=== PATIENT | male | born 1940 | race Caucasian/White ===

== ENCOUNTER 2018-06-17 17:21 | Inpatient (IN) | payer MEDICARE, BC ==
[~2018-06-17] VITALS: Ht 177.8 cm; Wt 81.9 kg
--- NOTE | 2018-06-17 17:55 | RAD ---
PQRS Compliance Statement: One or more of the following individualized dose reduction techniques were utilized for this examination: 1. Automated exposure control 2. Adjustment of the mA and/or kV according to patient size 3. Use of iterative reconstruction technique CT HEAD WITHOUT CONTRAST History: AMS Comparison: None. Technique: Axial images are obtained of the head from the skull base through the vertex without IV contrast. Findings: No mass-effect, midline shift, extra-axial fluid collection, hemorrhage, or obvious acute infarction is identified. Basilar cisterns are patent. The ventricles and sulci are prominent, consistent with age-related cerebral atrophy. Bone windows demonstrate no acute calvarial abnormality. The visualized paranasal sinuses are clear. Mastoid air cells are well aerated. IMPRESSION: 1. No acute intracranial abnormality. 2. Generalized cerebral atrophy. Electronically signed by: Andrew Henderson MD (06/17/2018 5:51 PM) [facility]
--- NOTE | 2018-06-17 18:09 | ED.ADGEN ---
Past History Past Medical History: Hypothyroid (LESA LOERA DO) Past Medical History: Anxiety, Dementia, Hypertension, Hypothyroid (CHEO ORTEGA MD) Past Surgical History: No Surgical History (LESA LOERA DO) Alcohol Use: None Drug Use: None (LESA LOERA DO) Adult General Chief Complaint Chief Complaint See Dr. Loera report for details. (CHEO ORTEGA MD) Chief Complaint Agitation (LESA LOERA DO) HPI HPI Patient is a 78-year-old male with history of dementia presents with increased agitation and paranoia from home. Patient is reportedly was getting aggressive with family members attempted to escape home. Family report mood lability and refusal to take medications. Family also reports decreased food intake due to paranoia that medications are crushed in his food. Family states they've been attempting to give him medications through his meals. No recent illnesses, falls or injuries. No other acute symptoms or complaints.[] (LESA LOERA DO) Review of Systems Review of Systems Review symptoms as per history of present illness. All other review symptoms are negative. All other systems were reviewed and found to be within normal limits, except as documented in this note. (LESA LOERA DO) Current Medications Current Medications Current Medications Medications (Trade) Dose Ordered Sig/Ines Start Time Stop Time Status Last Admin Dose Admin Lorazepam (Ativan) 2 mg 1X ONCE 06/17/18 20:15 06/17/18 20:16 DC 06/17/18 19:54 2 MG (CHEO ORTEGA MD) Allergies Allergies Allergies Coded Allergies Type Severity Reaction Last Updated Verified rivastigmine Allergy Mild 06/17/18 Yes (CHEO ORTEGA MD) Physical Exam Physical Exam Constitutional: Well developed, well nourished, no acute distress, non-toxic appearance. [] HENT: Normocephalic, atraumatic, bilateral external ears normal, oropharynx moist, nose normal. [] Eyes: PERRLA, EOMI, conjunctiva normal, no discharge. [] Neck: Normal range of motion, no tenderness. [] Cardiovascular:Heart rate regular rhythm, no murmur. [] Lungs & Thorax: Bilateral breath sounds clear to auscultation. [] Abdomen: Bowel sounds normal. [] Skin: Warm, dry, no erythema, no rash. [] Back: No tenderness. [] Extremities: No tenderness, no edema. [] Neurologic: Alert and oriented X 3, normal motor function, normal sensory function, no focal deficits noted. [] Psychologic: Affect normal, judgement normal, mood normal. [] (LESA LOERA DO) Current Patient Data Vital Signs Vital Signs Date Time Temp Pulse Resp B/P (MAP) Pulse Ox O2 Delivery O2 Flow Rate FiO2 06/17/18 19:53 63 18 160/72 (101) 100 Room Air 06/17/18 17:43 98.3 (CHEO ORTEGA MD) Lab Results Laboratory Tests Test 06/17/18 18:05 White Blood Count 9.1 x10^3/uL (4.0-11.0) Red Blood Count 4.41 x10^6/uL (4.30-5.70) Hemoglobin 13.8 g/dL (13.0-17.5) Hematocrit 40.5 % (39.0-53.0) Mean Corpuscular Volume 92 fL (79-100) Mean Corpuscular Hemoglobin 31 pg (25-35) Mean Corpuscular Hemoglobin Concent 34 g/dL (31-37) Red Cell Distribution Width 14.2 % (11.5-14.5) Platelet Count 251 x10^3/uL (140-400) Neutrophils (%) (Auto) 69 % (31-73) Lymphocytes (%) (Auto) 16 % (24-48) L Monocytes (%) (Auto) 12 % (0-9) H Eosinophils (%) (Auto) 2 % (0-3) Basophils (%) (Auto) 1 % (0-3) Neutrophils # (Auto) 6.3 x10^3uL (1.8-7.7) Lymphocytes # (Auto) 1.5 x10^3/uL (1.0-4.8) Monocytes # (Auto) 1.1 x10^3/uL (0.0-1.1) Eosinophils # (Auto) 0.2 x10^3/uL (0.0-0.7) Basophils # (Auto) 0.1 x10^3/uL (0.0-0.2) Urine Collection Type Unknown Urine Color Yellow Urine Clarity Hazy Urine pH 6.5 Urine Specific [place] 1.025 Urine Protein Neg (NEG-TRACE) Urine Glucose (UA) Neg mg/dL (NEG) Urine Ketones (Stick) Neg mg/dL (NEG) Urine Blood Neg (NEG) Urine Nitrite Neg (NEG) Urine Bilirubin Neg (NEG) Urine Urobilinogen Dipstick 1 mg/dL (0.2 mg/dL) Urine Leukocyte Esterase Neg (NEG) Urine RBC 1-2 /HPF (0-2) Urine WBC 1-4 /HPF (0-4) Urine Squamous Epithelial Cells Few /LPF Urine Bacteria 0 /HPF (0-FEW) Urine Hyaline Casts Few /HPF Urine Mucus Marked /LPF Sodium Level 138 mmol/L (136-145) Potassium Level 3.9 mmol/L (3.5-5.1) Chloride Level 104 mmol/L (98-107) Carbon Dioxide Level 25 mmol/L (21-32) Anion Gap 9 (6-14) Blood Urea Nitrogen 20 mg/dL (8-26) Creatinine 1.1 mg/dL (0.7-1.3) Estimated GFR (Cockcroft-Gault) 64.7 BUN/Creatinine Ratio 18 (6-20) Glucose Level 96 mg/dL (70-99) Calcium Level 8.6 mg/dL (8.5-10.1) Magnesium Level 2.1 mg/dL (1.8-2.4) Total Bilirubin 0.3 mg/dL (0.2-1.0) Aspartate Amino Transferase (AST) 20 U/L (15-37) Alanine Aminotransferase (ALT) 26 U/L (16-63) Alkaline Phosphatase 92 U/L (46-116) Troponin I Quantitative < 0.017 ng/mL (0-0.055) Total Protein 8.2 g/dL (6.4-8.2) Albumin 3.4 g/dL (3.4-5.0) Albumin/Globulin Ratio 0.7 (1.0-1.7) L (CHEO ORTEGA MD) Lab Results Laboratory Tests Test 06/17/18 16:00 06/17/18 18:05 Hemoglobin A1c 5.6 % (4.8-5.6) Iron Level 51 ug/dL (65-175) L Total Iron Binding Capacity 235 ug/dL (250-450) L Iron Saturation 22 % (15-34) Triglycerides Level 64 mg/dL (0-150) Cholesterol Level 140 mg/dL (0-200) LDL Cholesterol, Calculated 93 mg/dL (0-100) VLDL Cholesterol, Calculated 12 mg/dL (0-40) Non-HDL Cholesterol Calculated 105 mg/dL (0-129) HDL Cholesterol 35 mg/dL (40-60) L Cholesterol/HDL Ratio 4.0 Vitamin B12 Level 709 pg/mL (247-911) 25-Hydroxy Vitamin D Total 44.4 ng/mL (30-100) Thyroid Stimulating Hormone (TSH) 1.550 uIU/mL (0.358-3.740) Thyroxine (T4) 6.9 ug/dL (4.5-12.0) Total Triiodothyronine (TT3) 84 ng/dL (71-180) Treponema pallidum Antibody Nonreactive (Nonreactive) White Blood Count 9.1 x10^3/uL (4.0-11.0) Red Blood Count 4.41 x10^6/uL (4.30-5.70) Hemoglobin 13.8 g/dL (13.0-17.5) Hematocrit 40.5 % (39.0-53.0) Mean Corpuscular Volume 92 fL (79-100) Mean Corpuscular Hemoglobin 31 pg (25-35) Mean Corpuscular Hemoglobin Concent 34 g/dL (31-37) Red Cell Distribution Width 14.2 % (11.5-14.5) Platelet Count 251 x10^3/uL (140-400) Neutrophils (%) (Auto) 69 % (31-73) Lymphocytes (%) (Auto) 16 % (24-48) L Monocytes (%) (Auto) 12 % (0-9) H Eosinophils (%) (Auto) 2 % (0-3) Basophils (%) (Auto) 1 % (0-3) Neutrophils # (Auto) 6.3 x10^3uL (1.8-7.7) Lymphocytes # (Auto) 1.5 x10^3/uL (1.0-4.8) Monocytes # (Auto) 1.1 x10^3/uL (0.0-1.1) Eosinophils # (Auto) 0.2 x10^3/uL (0.0-0.7) Basophils # (Auto) 0.1 x10^3/uL (0.0-0.2) Urine Collection Type Unknown Urine Color Yellow Urine Clarity Hazy Urine pH 6.5 Urine Specific [place] 1.025 Urine Protein Neg (NEG-TRACE) Urine Glucose (UA) Neg mg/dL (NEG) Urine Ketones (Stick) Neg mg/dL (NEG) Urine Blood Neg (NEG) Urine Nitrite Neg (NEG) Urine Bilirubin Neg (NEG) Urine Urobilinogen Dipstick 1 mg/dL (0.2 mg/dL) Urine Leukocyte Esterase Neg (NEG) Urine RBC 1-2 /HPF (0-2) Urine WBC 1-4 /HPF (0-4) Urine Squamous Epithelial Cells Few /LPF Urine Bacteria 0 /HPF (0-FEW) Urine Hyaline Casts Few /HPF Urine Mucus Marked /LPF Sodium Level 138 mmol/L (136-145) Potassium Level 3.9 mmol/L (3.5-5.1) Chloride Level 104 mmol/L (98-107) Carbon Dioxide Level 25 mmol/L (21-32) Anion Gap 9 (6-14) Blood Urea Nitrogen 20 mg/dL (8-26) Creatinine 1.1 mg/dL (0.7-1.3) Estimated GFR (Cockcroft-Gault) 64.7 BUN/Creatinine Ratio 18 (6-20) Glucose Level 96 mg/dL (70-99) Calcium Level 8.6 mg/dL (8.5-10.1) Magnesium Level 2.1 mg/dL (1.8-2.4) Total Bilirubin 0.3 mg/dL (0.2-1.0) Aspartate Amino Transferase (AST) 20 U/L (15-37) Alanine Aminotransferase (ALT) 26 U/L (16-63) Alkaline Phosphatase 92 U/L (46-116) Troponin I Quantitative < 0.017 ng/mL (0-0.055) Total Protein 8.2 g/dL (6.4-8.2) Albumin 3.4 g/dL (3.4-5.0) Albumin/Globulin Ratio 0.7 (1.0-1.7) L (LESA LOERA DO) EKG EKG [EKG; reviewed] (LESA LOERA DO) EKG My interpretation of EKG shows a sinus rhythm at 60 bpm. Some mild leftward axis. Some nonspecific T-wave changes. (CHEO ORTEGA MD) Radiology/Procedures Radiology/Procedures [] (LESA LOERA DO) Radiology/Procedures My interpretation CT of head shows no shift, mass, edema, bleed, or fracture. Does have generalized atrophy. Review formal report when available. My interpretation chest x-ray shows no acute cardiopulmonary findings. Borderline cardiomegaly. Does have some chronic lung changes as well as midline sternal wires from previous bypass surgery. Does have screws and right humerus. No acute processes appreciated. See formal report when available (CHEO ORTEGA MD) Course & Med Decision Making Course & Med Decision Making Pertinent Labs and Imaging studies reviewed. (See chart for details) [Work up in progress. Care endorsed to oncoming [facility] at 1800.] (LESA LOERA DO) Final Impression Final Impression [] (LESA LOERA DO) Final Impression 1. Mental Status Change- Increased confusion 2. Aggressive and Agitated Behaviors 3. Dementia- rapid progression 4. Hx. Hypothyroid 5. Hx. BPH See [facility] Psych. evaluation- Pt. admitted to [facility]- Dr. London for further eval and tx. (CHEO ORTEGA MD) Dragon Disclaimer Dragon Disclaimer This electronic medical record was generated, in whole or in part, using a voice recognition dictation system. (LESA LOERA DO) Dragon Disclaimer This chart was dictated in whole or in part using Voice Recognition software in a busy, high-work load, and often noisy Emergency Department environment. It may contain unintended and wholly unrecognized errors or omissions. (CHEO ORTEGA MD) Dragon Disclaimer This chart was dictated in whole or in part using Voice Recognition software in a busy, high-work load, and often noisy Emergency Department environment. It may contain unintended and wholly unrecognized errors or omissions. (LESA LOERA DO) Discharge Summary Visit Information Final Diagnosis Problems Medical Problems: (1) Mental status alteration Status: Acute (LESA LOERA DO) Brief Hospital Course Allergies Allergies Coded Allergies Type Severity Reaction Last Updated Verified rivastigmine Allergy Mild 06/17/18 Yes (LESA LOERA DO) Vital Signs Vital Signs Date Time Temp Pulse Resp B/P (MAP) Pulse Ox O2 Delivery O2 Flow Rate FiO2 06/17/18 19:53 63 18 160/72 (101) 100 Room Air 06/17/18 17:43 98.3 (LESA LOERA DO) Lab Results Laboratory Tests Test 06/17/18 16:00 06/17/18 18:05 Hemoglobin A1c 5.6 % (4.8-5.6) Iron Level 51 ug/dL (65-175) Total Iron Binding Capacity 235 ug/dL (250-450) Iron Saturation 22 % (15-34) Triglycerides Level 64 mg/dL (0-150) Cholesterol Level 140 mg/dL (0-200) LDL Cholesterol, Calculated 93 mg/dL (0-100) VLDL Cholesterol, Calculated 12 mg/dL (0-40) Non-HDL Cholesterol Calculated 105 mg/dL (0-129) HDL Cholesterol 35 mg/dL (40-60) Cholesterol/HDL Ratio 4.0 Vitamin B12 Level 709 pg/mL (247-911) 25-Hydroxy Vitamin D Total 44.4 ng/mL (30-100) Thyroid Stimulating Hormone (TSH) 1.550 uIU/mL (0.358-3.740) Thyroxine (T4) 6.9 ug/dL (4.5-12.0) Total Triiodothyronine 84 ng/dL (71-180) Treponema pallidum Antibody Nonreactive (Nonreactive) White Blood Count 9.1 x10^3/uL (4.0-11.0) Red Blood Count 4.41 x10^6/uL (4.30-5.70) Hemoglobin 13.8 g/dL (13.0-17.5) Hematocrit 40.5 % (39.0-53.0) Mean Corpuscular Volume 92 fL (79-100) Mean Corpuscular Hemoglobin 31 pg (25-35) Mean Corpuscular Hemoglobin Concent 34 g/dL (31-37) Red Cell Distribution Width 14.2 % (11.5-14.5) Platelet Count 251 x10^3/uL (140-400) Neutrophils (%) (Auto) 69 % (31-73) Lymphocytes (%) (Auto) 16 % (24-48) Monocytes (%) (Auto) 12 % (0-9) Eosinophils (%) (Auto) 2 % (0-3) Basophils (%) (Auto) 1 % (0-3) Neutrophils # (Auto) 6.3 x10^3uL (1.8-7.7) Lymphocytes # (Auto) 1.5 x10^3/uL (1.0-4.8) Monocytes # (Auto) 1.1 x10^3/uL (0.0-1.1) Eosinophils # (Auto) 0.2 x10^3/uL (0.0-0.7) Basophils # (Auto) 0.1 x10^3/uL (0.0-0.2) Urine Collection Type Unknown Urine Color Yellow Urine Clarity Hazy Urine pH 6.5 Urine Specific [place] 1.025 Urine Protein Neg (NEG-TRACE) Urine Glucose (UA) Neg mg/dL (NEG) Urine Ketones (Stick) Neg mg/dL (NEG) Urine Blood Neg (NEG) Urine Nitrite Neg (NEG) Urine Bilirubin Neg (NEG) Urine Urobilinogen Dipstick 1 mg/dL (0.2 mg/dL) Urine Leukocyte Esterase Neg (NEG) Urine RBC 1-2 /HPF (0-2) Urine WBC 1-4 /HPF (0-4) Urine Squamous Epithelial Cells Few /LPF Urine Bacteria 0 /HPF (0-FEW) Urine Hyaline Casts Few /HPF Urine Mucus Marked /LPF Sodium Level 138 mmol/L (136-145) Potassium Level 3.9 mmol/L (3.5-5.1) Chloride Level 104 mmol/L (98-107) Carbon Dioxide Level 25 mmol/L (21-32) Anion Gap 9 (6-14) Blood Urea Nitrogen 20 mg/dL (8-26) Creatinine 1.1 mg/dL (0.7-1.3) Estimated GFR (Cockcroft-Gault) 64.7 BUN/Creatinine Ratio 18 (6-20) Glucose Level 96 mg/dL (70-99) Calcium Level 8.6 mg/dL (8.5-10.1) Magnesium Level 2.1 mg/dL (1.8-2.4) Total Bilirubin 0.3 mg/dL (0.2-1.0) Aspartate Amino Transf (AST/SGOT) 20 U/L (15-37) Alanine Aminotransferase (ALT/SGPT) 26 U/L (16-63) Alkaline Phosphatase 92 U/L (46-116) Troponin I Quantitative < 0.017 ng/mL (0-0.055) Total Protein 8.2 g/dL (6.4-8.2) Albumin 3.4 g/dL (3.4-5.0) Albumin/Globulin Ratio 0.7 (1.0-1.7) (LESA LOERA DO) Brief Hospital Course Mr. Sanderson is a 78 old male who presented with mental status change and increased behavior issue s of aggression and agitation. Pt. has know hx of dementia, with recent increased problems memory and confusion. Pt. admitted [facility] service [facility] (CHEO ORTEGA MD) Brief Hospital Course Mr. Sanderson is a 78 old [sex] who presented with [ ] (LESA LOERA DO) Discharge Information Condition at Discharge: Stable (CHEO ORTEGA MD) Dischare Medications Current Medications Lorazepam (Ativan) 2 mg 1X ONCE PO Last administered on 06/17/18at 19:54; Admin Dose 2 MG; Start 06/17/18 at 20:15; Stop 06/17/18 at 20:16; Status DC Active Scripts Active Reported Tamsulosin Hcl 0.4 Mg Cap.er.24h 0.4 Mg PO DAILY Levothyroxine Sodium 88 Mcg Tablet 88 Mcg PO DAILYAC Escitalopram Oxalate 20 Mg Tablet 20 Mg PO DAILY Rivastigmine (Rivastigmine Tartrate) 1.5 Mg Capsule 1.5 Mg PO BID Namenda Xr (Memantine Hcl) 28 Mg Cap.spr.24 28 Mg PO DAILY (LESA LOERA DO) LESA LOERA DO Jun 17, 2018 18:09 CHEO ORTEGA MD Jun 18, 2018 00:59
--- NOTE | 2018-06-17 18:13 | EKG ---
[address] [address] Test Date: 2018-06-17 Test Time: 17:54:47 Pat Name: CRISTINA VALENCIA Department: Room: Gender: M Barrel Handler: AMADO : 1940 Requested By: LESA MCCORMICK Order Number: [id number] Reading MD: Robbi Collins Measurements Intervals [place] Rate: 60 P: 38 AK: 182 QRS: 0 QRSD: 86 T: 90 QT: 418 QTc: 418 Interpretive Statements SINUS RHYTHM LEFTWARD AXIS T ABNORMALITY IN ANTEROLATERAL LEADS Electronically Signed On 06-27-2018 18:46:57 [employer] by Robbi Collins
[2018-06-17 18:18] LABS: BASO # 0.1 x10^3/uL (0.0-0.2); BASO % 1 % (0-3); EOS # 0.2 x10^3/uL (0.0-0.7); EOS % 2 % (0-3); HEMATOCRIT 40.5 % (39.0-53.0); HEMOGLOBIN 13.8 g/dL (13.0-17.5); LYMPH # 1.5 x10^3/uL (1.0-4.8); LYMPH % 16 % (24-48); MEAN CORPUSCULAR HEMOGLOBIN 31 pg (25-35); MEAN CORPUSCULAR HGB CONC 34 g/dL (31-37); MEAN CORPUSCULAR VOLUME 92 fL (79-100); MONO # 1.1 x10^3/uL (0.0-1.1); MONO % 12 % (0-9); NEUT # 6.3 x10^3uL (1.8-7.7); NEUT % 69 % (31-73); PLATELET COUNT 251 x10^3/uL (140-400); RED BLOOD COUNT 4.41 x10^6/uL (4.30-5.70); RED CELL DISTRIBUTION WIDTH 14.2 % (11.5-14.5); WHITE BLOOD COUNT 9.1 x10^3/uL (4.0-11.0)
[2018-06-17 18:35] LABS: ALBUMIN 3.4 g/dL (3.4-5.0); ALBUMIN/GLOBULIN RATIO 0.7 (1.0-1.7); CALCIUM 8.6 mg/dL (8.5-10.1); CREATININE 1.1 mg/dL (0.7-1.3); GFR 64.7; MAGNESIUM 2.1 mg/dL (1.8-2.4); POTASSIUM 3.9 mmol/L (3.5-5.1); TOTAL BILIRUBIN 0.3 mg/dL (0.2-1.0); TOTAL PROTEIN 8.2 g/dL (6.4-8.2)
[2018-06-17 18:54] LABS: BACTERIA,URINE 0 /HPF (0-FEW); BILIRUBIN,URINE NEG (NEG); CLARITY,URINE HAZY; COLOR,URINE YELLOW; GLUCOSE,URINE NEG (NEG); NITRITE,URINE NEG (NEG); SQUAMOUS EPITHELIAL CELL,UR FEW /LPF; UROBILINOGEN,URINE 1 mg/dL (0.2 mg/dL)
[2018-06-17 18:55] LABS: HYALINE CASTS, URINE FEW /HPF
--- NOTE | 2018-06-17 19:15 | RAD ---
CHEST AP ONLY Clinical Indication: AMS Comparison: None. Findings: Median sternotomy wires and prior CABG. The cardiomediastinal silhouette is normal. Lungs are clear. There is no pneumothorax. No pleural effusion is appreciated. No acute bone abnormality. There are 2 cortical screws of the mid right humerus. IMPRESSION: No acute cardiopulmonary process. Electronically signed by: Andrew Henderson MD (06/17/2018 7:10 PM) [facility]
[2018-06-17] MEDS ORDERED: LORazepam 1 MG TABLET PO ONE (20:15)
[2018-06-17] MEDS ORDERED: MAG HYDROX/AL HYDROX/SIMETH 30 ML ORAL.SUSP PO PRN (21:30)
[2018-06-17] MEDS ORDERED: RIVA1.5C4 PO (21:37)
[2018-06-17] MEDS ORDERED: TAMS0.4C2 PO (21:37)
[2018-06-17] MEDS ORDERED: LEVO88TA4 PO (21:37)
[2018-06-17] MEDS ORDERED: ESCITALOPRAM OX20 MG PO (21:37)
[2018-06-17] MEDS ORDERED: MEMA28CA PO (21:37)
--- NOTE | 2018-06-17 22:47 | PDOC ---
Exam Note: Justin Note: Please also refer to the separate dictated note~for this date of service dictated separately. Discussed the patient with Nursing staff reviewed the chart.~Reviewed interim history and current functioning. Reviewed vital signs,~ Labs/ Radiology~and current medications noted below. Continue current treatment with the changes noted in the dictated addendum note Assessment: Vital Signs: Vital Signs Date Time Temp Pulse Resp B/P (MAP) Pulse Ox O2 Delivery O2 Flow Rate FiO2 06/17/18 19:53 63 18 160/72 (101) 100 Room Air 06/17/18 17:43 98.3 Labs: Laboratory Tests Test 06/17/18 18:05 White Blood Count 9.1 x10^3/uL (4.0-11.0) Red Blood Count 4.41 x10^6/uL (4.30-5.70) Hemoglobin 13.8 g/dL (13.0-17.5) Hematocrit 40.5 % (39.0-53.0) Mean Corpuscular Volume 92 fL (79-100) Mean Corpuscular Hemoglobin 31 pg (25-35) Mean Corpuscular Hemoglobin Concent 34 g/dL (31-37) Red Cell Distribution Width 14.2 % (11.5-14.5) Platelet Count 251 x10^3/uL (140-400) Neutrophils (%) (Auto) 69 % (31-73) Lymphocytes (%) (Auto) 16 % (24-48) L Monocytes (%) (Auto) 12 % (0-9) H Eosinophils (%) (Auto) 2 % (0-3) Basophils (%) (Auto) 1 % (0-3) Neutrophils # (Auto) 6.3 x10^3uL (1.8-7.7) Lymphocytes # (Auto) 1.5 x10^3/uL (1.0-4.8) Monocytes # (Auto) 1.1 x10^3/uL (0.0-1.1) Eosinophils # (Auto) 0.2 x10^3/uL (0.0-0.7) Basophils # (Auto) 0.1 x10^3/uL (0.0-0.2) Urine Collection Type Unknown Urine Color Yellow Urine Clarity Hazy Urine pH 6.5 Urine Specific [place] 1.025 Urine Protein Neg (NEG-TRACE) Urine Glucose (UA) Neg mg/dL (NEG) Urine Ketones (Stick) Neg mg/dL (NEG) Urine Blood Neg (NEG) Urine Nitrite Neg (NEG) Urine Bilirubin Neg (NEG) Urine Urobilinogen Dipstick 1 mg/dL (0.2 mg/dL) Urine Leukocyte Esterase Neg (NEG) Urine RBC 1-2 /HPF (0-2) Urine WBC 1-4 /HPF (0-4) Urine Squamous Epithelial Cells Few /LPF Urine Bacteria 0 /HPF (0-FEW) Urine Hyaline Casts Few /HPF Urine Mucus Marked /LPF Sodium Level 138 mmol/L (136-145) Potassium Level 3.9 mmol/L (3.5-5.1) Chloride Level 104 mmol/L (98-107) Carbon Dioxide Level 25 mmol/L (21-32) Anion Gap 9 (6-14) Blood Urea Nitrogen 20 mg/dL (8-26) Creatinine 1.1 mg/dL (0.7-1.3) Estimated GFR (Cockcroft-Gault) 64.7 BUN/Creatinine Ratio 18 (6-20) Glucose Level 96 mg/dL (70-99) Calcium Level 8.6 mg/dL (8.5-10.1) Magnesium Level 2.1 mg/dL (1.8-2.4) Total Bilirubin 0.3 mg/dL (0.2-1.0) Aspartate Amino Transferase (AST) 20 U/L (15-37) Alanine Aminotransferase (ALT) 26 U/L (16-63) Alkaline Phosphatase 92 U/L (46-116) Troponin I Quantitative < 0.017 ng/mL (0-0.055) Total Protein 8.2 g/dL (6.4-8.2) Albumin 3.4 g/dL (3.4-5.0) Albumin/Globulin Ratio 0.7 (1.0-1.7) L Current Medications: Meds: Current Medications Lorazepam (Ativan) 2 mg 1X ONCE PO Last administered on 06/17/18at 19:54; Start 06/17/18 at 20:15; Stop 06/17/18 at 20:16; Status DC Acetaminophen (Tylenol) 650 mg PRN Q6HRS PRN PO PAIN / TEMP; Start 06/17/18 at 21:30 Multi-Ingredient Ointment (Analgesic Cool) 1 alan PRN QID PRN TP MUSCLE PAIN; Start 06/17/18 at 21:30 Al Hydroxide/Mg Hydroxide (Mylanta Plus Xs) 15 ml PRN AFTMEALHC PRN PO DYSPEPSIA; Start 06/17/18 at 21:30 Magnesium Hydroxide (Milk Of Magnesia) 2,400 mg PRN QHS PRN PO CONSTIPATION; Start 06/17/18 at 21:30 Trazodone HCl (Desyrel) 25 mg PRN QHS PRN PO INSOMNIA; Start 06/17/18 at 21:30 Olanzapine (ZyPREXA ZYDIS) 2.5 mg PRN Q2HR PRN PO PSYCHOSIS; Start 06/17/18 at 21:30 Active Scripts Active Reported Tamsulosin Hcl 0.4 Mg Cap.er.24h 0.4 Mg PO DAILY Levothyroxine Sodium 88 Mcg Tablet 88 Mcg PO DAILYAC Escitalopram Oxalate 20 Mg Tablet 20 Mg PO DAILY Rivastigmine (Rivastigmine Tartrate) 1.5 Mg Capsule 1.5 Mg PO BID Namenda Xr (Memantine Hcl) 28 Mg Cap.spr.24 28 Mg PO DAILY I have reviewed the current psychotropics carefully including drug interactions. Risk benefit ratio favors no change other than as noted in my dictated progress note. Diagnosis: Problems: (1) Mental status alteration MILAN TAYLOR MD Jun 17, 2018 22:47
[2018-06-17 23:08] VITALS: BP 171/81
[2018-06-18 05:49] VITALS: BP 165/81
[2018-06-18 06:49] LABS: BASO % 1 % (0-3); EOS # 0.3 x10^3/uL (0.0-0.7); EOS % 4 % (0-3); HEMATOCRIT 39.7 % (39.0-53.0); HEMOGLOBIN 13.5 g/dL (13.0-17.5); LYMPH # 2.2 x10^3/uL (1.0-4.8); LYMPH % 30 % (24-48); MEAN CORPUSCULAR HEMOGLOBIN 32 pg (25-35); MEAN CORPUSCULAR HGB CONC 34 g/dL (31-37); MEAN CORPUSCULAR VOLUME 92 fL (79-100); MONO % 13 % (0-9); NEUT # 3.9 x10^3uL (1.8-7.7); NEUT % 53 % (31-73); PLATELET COUNT 254 x10^3/uL (140-400); RED CELL DISTRIBUTION WIDTH 14.1 % (11.5-14.5); WHITE BLOOD COUNT 7.5 x10^3/uL (4.0-11.0)
[2018-06-18 06:50] LABS: CALCIUM 8.5 mg/dL (8.5-10.1); CREATININE 0.9 mg/dL (0.7-1.3); GFR 81.6
[2018-06-18] MEDS: RIVASTIGMINE. 1.5 MG CAPSULE. PO SCH ×2 (09:09→16:43)
[2018-06-18] MEDS: MEMANTINE 10 MG TABLET. PO SCH ×2 (09:10→19:59)
[2018-06-18] MEDS: LEVOTHYROXINE 88 MCG TABLET PO SCH (09:10)
[2018-06-18] MEDS: CITALOPRAM 20 MG TABLET. PO SCH (09:10)
[2018-06-18] MEDS: TAMSULOSIN 0.4 MG CAP.ER.24H. PO SCH (09:10)
[2018-06-18] MEDS: ACETAMINOPHEN 325 MG TABLET PO PRN (14:10)
[2018-06-18 15:59] VITALS: BP 131/71
[2018-06-18 18:08] LABS: THYROXINE 6.9 ug/dL (4.5-12.0)
[2018-06-18] MEDS: traZODone 50 MG TABLET. PO PRN ×2 (19:59→21:01)
[2018-06-18 21:08] LABS: HEMOGLOBIN A1C 5.6 % (4.8-5.6)
[2018-06-18] MEDS: hydrOXYzine HCL 25 MG TABLET PO PRN (22:54)
--- NOTE | 2018-06-18 22:56 | PDOC ---
Exam Note: Justin Note: Please also refer to the separate dictated note~for this date of service dictated separately.~Patient seen individually. Discussed the patient with Nursing staff reviewed the chart.~Reviewed interim history and current functioning. Reviewed vital signs,~Labs/ Radiology~and current medications noted below. Continue current treatment with the changes noted in the dictated addendum note Assessment: Vital Signs: Vital Signs Date Time Temp Pulse Resp B/P (MAP) Pulse Ox O2 Delivery O2 Flow Rate FiO2 06/18/18 15:59 97.6 82 22 131/71 (91) 95 Room Air Labs: Laboratory Tests Test 06/18/18 06:23 White Blood Count 7.5 x10^3/uL (4.0-11.0) Red Blood Count 4.30 x10^6/uL (4.30-5.70) Hemoglobin 13.5 g/dL (13.0-17.5) Hematocrit 39.7 % (39.0-53.0) Mean Corpuscular Volume 92 fL (79-100) Mean Corpuscular Hemoglobin 32 pg (25-35) Mean Corpuscular Hemoglobin Concent 34 g/dL (31-37) Red Cell Distribution Width 14.1 % (11.5-14.5) Platelet Count 254 x10^3/uL (140-400) Neutrophils (%) (Auto) 53 % (31-73) Lymphocytes (%) (Auto) 30 % (24-48) Monocytes (%) (Auto) 13 % (0-9) H Eosinophils (%) (Auto) 4 % (0-3) H Basophils (%) (Auto) 1 % (0-3) Neutrophils # (Auto) 3.9 x10^3uL (1.8-7.7) Lymphocytes # (Auto) 2.2 x10^3/uL (1.0-4.8) Monocytes # (Auto) 1.0 x10^3/uL (0.0-1.1) Eosinophils # (Auto) 0.3 x10^3/uL (0.0-0.7) Basophils # (Auto) 0.0 x10^3/uL (0.0-0.2) Sodium Level 140 mmol/L (136-145) Potassium Level 4.0 mmol/L (3.5-5.1) Chloride Level 106 mmol/L (98-107) Carbon Dioxide Level 27 mmol/L (21-32) Anion Gap 7 (6-14) Blood Urea Nitrogen 17 mg/dL (8-26) Creatinine 0.9 mg/dL (0.7-1.3) Estimated GFR (Cockcroft-Gault) 81.6 Glucose Level 89 mg/dL (70-99) Calcium Level 8.5 mg/dL (8.5-10.1) Current Medications: Meds: Current Medications Lorazepam (Ativan) 2 mg 1X ONCE PO Last administered on 06/17/18 19:54; Start 06/17/18 at 20:15; Stop 06/17/18 at 20:16; Status DC Acetaminophen (Tylenol) 650 mg PRN Q6HRS PRN PO PAIN / TEMP Last administered on 06/18/18 14:10; Start 06/17/18 at 21:30 Multi-Ingredient Ointment (Analgesic Dendron) 1 alan PRN QID PRN TP MUSCLE PAIN; Start 06/17/18 at 21:30 Al Hydroxide/Mg Hydroxide (Mylanta Plus Xs) 15 ml PRN AFTMEALHC PRN PO DYSPEPSIA; Start 06/17/18 at 21:30 Magnesium Hydroxide (Milk Of Magnesia) 2,400 mg PRN QHS PRN PO CONSTIPATION; Start 06/17/18 at 21:30 Trazodone HCl (Desyrel) 25 mg PRN QHS PRN PO INSOMNIA Last administered on 21:01; Start 06/17/18 at 21:30 Olanzapine (ZyPREXA ZYDIS) 2.5 mg PRN Q2HR PRN PO PSYCHOSIS Last administered on 06/18/18 19:59; Start 06/17/18 at 21:30 Citalopram Hydrobromide (CeleXA) 40 mg DAILY PO Last administered on 06/18/18 09:10; Start 06/18/18 at 09:00 Memantine (Namenda) 10 mg BID PO Last administered on 06/18/18 19:59; Start 06/18/18 at 09:00 Rivastigmine Tartrate (Exelon) 1.5 mg BIDWMEALS PO Last administered on 16:43; Start 06/18/18 at 08:00 Levothyroxine Sodium (Synthroid) 88 mcg DAILYAC PO Last administered on at 09:10; Start 06/18/18 at 07:30 Tamsulosin HCl (Flomax) 0.4 mg DAILY PO Last administered on 06/18/18at 09:10; Start 06/18/18 at 09:00 Hydroxyzine HCl (Atarax) 25 mg PRN Q2HR PRN PO ANXIETY / AGITATION Last administered on 06/18/18at 22:54; Start 06/18/18 at 23:00 Active Scripts Active Reported Tamsulosin Hcl 0.4 Mg Cap.er.24h 0.4 Mg PO DAILY Levothyroxine Sodium 88 Mcg Tablet 88 Mcg PO DAILYAC Escitalopram Oxalate 20 Mg Tablet 20 Mg PO DAILY Rivastigmine (Rivastigmine Tartrate) 1.5 Mg Capsule 1.5 Mg PO BID Namenda Xr (Memantine Hcl) 28 Mg Cap.spr.24 28 Mg PO DAILY I have reviewed the current psychotropics carefully including drug interactions. Risk benefit ratio favors no change other than as noted in my dictated progress note. Diagnosis: Problems: (1) Mental status alteration MILAN TAYLOR MD Jun 18, 2018 22:56
[2018-06-18 23:00] LABS: THYROID STIM HORMONE (TSH) 1.55 uIU/mL (0.358-3.740)
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
[2018-06-19 05:37] VITALS: BP 122/70
[2018-06-19] MEDS: TAMSULOSIN 0.4 MG CAP.ER.24H. PO SCH (08:09)
[2018-06-19] MEDS: RIVASTIGMINE. 1.5 MG CAPSULE. PO SCH ×2 (08:09→17:34)
[2018-06-19] MEDS: CITALOPRAM 20 MG TABLET. PO SCH (08:09)
[2018-06-19] MEDS: MEMANTINE 10 MG TABLET. PO SCH ×2 (08:09→20:10)
[2018-06-19] MEDS: LEVOTHYROXINE 88 MCG TABLET PO SCH (08:11)
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
[2018-06-19] MEDS: hydrOXYzine HCL 25 MG TABLET PO PRN (15:45)
[2018-06-19 16:49] VITALS: BP 115/79
[2018-06-19] MEDS: QUEtiapine 25 MG TABLET. PO SCH (17:36)
[2018-06-19] MEDS: traZODone 50 MG TABLET. PO PRN ×2 (20:12→21:02)
[2018-06-19] MEDS: MIRTAZAPINE 7.5 MG TABLET. PO SCH (20:12)
[2018-06-19] MEDS: CARBAMIDE PEROXIDE 6.5% OTIC SOLUTION 15ML BOTTLE. AU SCH (21:00)
--- NOTE | 2018-06-19 22:40 | PDOC ---
Exam Note: Justin Note: Please also refer to the separate dictated note~for this date of service dictated separately.~Patient seen individually. Discussed the patient with Nursing staff reviewed the chart.~Reviewed interim history and current functioning. Reviewed vital signs,~Labs/ Radiology~and current medications noted below. Continue current treatment with the changes noted in the dictated addendum note Assessment: Vital Signs: Vital Signs Date Time Temp Pulse Resp B/P (MAP) Pulse Ox O2 Delivery O2 Flow Rate FiO2 06/19/18 16:49 99.7 80 20 115/79 (91) 98 06/18/18 15:59 Room Air I&O Intake and Output 06/19/18 07:01 Intake Total 960 ml Balance 960 ml Intake Oral 960 ml Current Medications: Meds: Current Medications Lorazepam (Ativan) 2 mg 1X ONCE PO Last administered on 06/17/18 19:54; Start 06/17/18 at 20:15; Stop 06/17/18 at 20:16; Status DC Acetaminophen (Tylenol) 650 mg PRN Q6HRS PRN PO PAIN / TEMP Last administered on 06/18/18at 14:10; Start 06/17/18 at 21:30 Multi-Ingredient Ointment (Analgesic [place]) 1 alan PRN QID PRN TP MUSCLE PAIN; Start 06/17/18 at 21:30 Al Hydroxide/Mg Hydroxide (Mylanta Plus Xs) 15 ml PRN AFTMEALHC PRN PO DYSPEPSIA; Start 06/17/18 at 21:30 Magnesium Hydroxide (Milk Of Magnesia) 2,400 mg PRN QHS PRN PO CONSTIPATION; Start 06/17/18 at 21:30 Trazodone HCl (Desyrel) 25 mg PRN QHS PRN PO INSOMNIA Last administered on at 21:02; Start 06/17/18 at 21:30 Olanzapine (ZyPREXA ZYDIS) 2.5 mg PRN Q2HR PRN PO PSYCHOSIS Last administered on 06/19/18 21:02; Start 06/17/18 at 21:30 Citalopram Hydrobromide (CeleXA) 40 mg DAILY PO Last administered on 06/19/18at 08:09; Start 06/18/18 at 09:00; Stop 06/19/18 at 16:58; Status DC Memantine (Namenda) 10 mg BID PO Last administered on 06/19/18at 20:10; Start 06/18/18 at 09:00 Rivastigmine Tartrate (Exelon) 1.5 mg BIDWMEALS PO Last administered on at 17:34; Start 06/18/18 at 08:00 Levothyroxine Sodium (Synthroid) 88 mcg DAILYAC PO Last administered on at 08:11; Start 06/18/18 at 07:30; Stop 06/19/18 at 17:40; Status DC Tamsulosin HCl (Flomax) 0.4 mg DAILY PO Last administered on 06/19/18at 08:09; Start 06/18/18 at 09:00 Hydroxyzine HCl (Atarax) 25 mg PRN Q2HR PRN PO ANXIETY / AGITATION Last administered on 06/19/18at 15:45; Start 06/18/18 at 23:00 Carbamide Peroxide (Debrox) 5 drop BID AU ; Start 06/19/18 at 21:00; Stop at 20:59 Mirtazapine (Remeron) 7.5 mg QHS PO Last administered on 06/19/18at 20:12; Start 06/19/18 at 21:00 Sertraline HCl (Zoloft) 50 mg DAILY PO ; Start 06/20/18 at 09:00 Quetiapine Fumarate (SEROquel) 12.5 mg 0900,1700 PO Last administered on at 17:36; Start 06/19/18 at 17:00 Levothyroxine Sodium (Synthroid) 88 mcg DAILY06 PO ; Start 06/20/18 at 06:00 Active Scripts Active Reported Tamsulosin Hcl 0.4 Mg Cap.er.24h 0.4 Mg PO DAILY Levothyroxine Sodium 88 Mcg Tablet 88 Mcg PO DAILYAC Escitalopram Oxalate 20 Mg Tablet 20 Mg PO DAILY Rivastigmine (Rivastigmine Tartrate) 1.5 Mg Capsule 1.5 Mg PO BID Namenda Xr (Memantine Hcl) 28 Mg Cap.spr.24 28 Mg PO DAILY I have reviewed the current psychotropics carefully including drug interactions. Risk benefit ratio favors no change other than as noted in my dictated progress note. Diagnosis: Problems: (1) Mental status alteration MILAN TAYLOR MD Jun 19, 2018 22:40
[2018-06-20 05:42] VITALS: BP 130/74
[2018-06-20] MEDS: LEVOTHYROXINE 88 MCG TABLET PO SCH ×2 (05:54→06:39)
[2018-06-20] MEDS: MEMANTINE 10 MG TABLET. PO SCH ×2 (08:07→19:12)
[2018-06-20] MEDS: CARBAMIDE PEROXIDE 6.5% OTIC SOLUTION 15ML BOTTLE. AU SCH ×2 (08:07→19:13)
[2018-06-20] MEDS: RIVASTIGMINE. 1.5 MG CAPSULE. PO SCH ×2 (08:07→17:00)
[2018-06-20] MEDS: TAMSULOSIN 0.4 MG CAP.ER.24H. PO SCH (08:07)
[2018-06-20] MEDS: QUEtiapine 25 MG TABLET. PO SCH ×2 (08:07→17:00)
[2018-06-20] MEDS: SERTRALINE 50 MG TABLET. PO SCH (08:08)
[2018-06-20 16:16] VITALS: BP 122/71
[2018-06-20] MEDS: MIRTAZAPINE 7.5 MG TABLET. PO SCH (19:12)
--- NOTE | 2018-06-20 21:02 | PDOC ---
Exam Note: Justin Note: Please also refer to the separate dictated note~for this date of service dictated separately.~Patient seen individually. Discussed the patient with Nursing staff reviewed the chart.~Reviewed interim history and current functioning. Reviewed vital signs,~Labs/ Radiology~and current medications noted below. Continue current treatment with the changes noted in the dictated addendum note Assessment: Vital Signs: Vital Signs Date Time Temp Pulse Resp B/P (MAP) Pulse Ox O2 Delivery O2 Flow Rate FiO2 06/20/18 16:16 98.0 69 19 122/71 (88) 95 Room Air I&O Intake and Output 06/20/18 07:01 Intake Total 360 ml Balance 360 ml Intake Oral 360 ml Current Medications: Meds: Current Medications Lorazepam (Ativan) 2 mg 1X ONCE PO Last administered on 06/17/18 19:54; Start 06/17/18 at 20:15; Stop 06/17/18 at 20:16; Status DC Acetaminophen (Tylenol) 650 mg PRN Q6HRS PRN PO PAIN / TEMP Last administered on 06/18/18at 14:10; Start 06/17/18 at 21:30 Multi-Ingredient Ointment (Analgesic [place]) 1 alan PRN QID PRN TP MUSCLE PAIN; Start 06/17/18 at 21:30 Al Hydroxide/Mg Hydroxide (Mylanta Plus Xs) 15 ml PRN AFTMEALHC PRN PO DYSPEPSIA; Start 06/17/18 at 21:30 Magnesium Hydroxide (Milk Of Magnesia) 2,400 mg PRN QHS PRN PO CONSTIPATION; Start 06/17/18 at 21:30 Trazodone HCl (Desyrel) 25 mg PRN QHS PRN PO INSOMNIA Last administered on at 21:02; Start 06/17/18 at 21:30 Olanzapine (ZyPREXA ZYDIS) 2.5 mg PRN Q2HR PRN PO PSYCHOSIS Last administered on 06/20/18at 19:16; Start 06/17/18 at 21:30 Citalopram Hydrobromide (CeleXA) 40 mg DAILY PO Last administered on 06/19/18 08:09; Start 06/18/18 at 09:00; Stop 06/19/18 at 16:58; Status DC Memantine (Namenda) 10 mg BID PO Last administered on 06/20/18 19:12; Start 06/18/18 at 09:00 Rivastigmine Tartrate (Exelon) 1.5 mg BIDWMEALS PO Last administered on 17:00; Start 06/18/18 at 08:00 Levothyroxine Sodium (Synthroid) 88 mcg DAILYAC PO Last administered on 08:11; Start 06/18/18 at 07:30; Stop 06/19/18 at 17:40; Status DC Tamsulosin HCl (Flomax) 0.4 mg DAILY PO Last administered on 06/20/18 08:07; Start 06/18/18 at 09:00 Hydroxyzine HCl (Atarax) 25 mg PRN Q2HR PRN PO ANXIETY / AGITATION Last administered on 06/19/18 15:45; Start 06/18/18 at 23:00 Carbamide Peroxide (Debrox) 5 drop BID AU Last administered on 06/20/18 19:13; Start 06/19/18 at 21:00; Stop 06/24/18 at 20:59 Mirtazapine (Remeron) 7.5 mg QHS PO Last administered on 06/20/18 19:12; Start 06/19/18 at 21:00 Sertraline HCl (Zoloft) 50 mg DAILY PO Last administered on 06/20/18 08:08; Start 06/20/18 at 09:00 Quetiapine Fumarate (SEROquel) 12.5 mg 0900,1700 PO Last administered on 17:00; Start 06/19/18 at 17:00 Levothyroxine Sodium (Synthroid) 88 mcg DAILY06 PO Last administered on 06:39; Start 06/20/18 at 06:00 Active Scripts Active Reported Tamsulosin Hcl 0.4 Mg Cap.er.24h 0.4 Mg PO DAILY Levothyroxine Sodium 88 Mcg Tablet 88 Mcg PO DAILYAC Escitalopram Oxalate 20 Mg Tablet 20 Mg PO DAILY Rivastigmine (Rivastigmine Tartrate) 1.5 Mg Capsule 1.5 Mg PO BID Namenda Xr (Memantine Hcl) 28 Mg Cap.spr.24 28 Mg PO DAILY I have reviewed the current psychotropics carefully including drug interactions. Risk benefit ratio favors no change other than as noted in my dictated progress note. Diagnosis: Problems: (1) Mental status alteration (2) Anxiety disorder (3) Dementia in Alzheimer's disease with delusions (4) Dementia in Alzheimer's disease with depression (5) Dementia, vascular, with delusions (6) Dementia, vascular, with depression (7) Impulse control disorder MILAN TAYLOR MD Jun 20, 2018 21:02
--- NOTE | 2018-06-20 21:53 | PN ---
DATE: 06/20/2018 This note covers elements not covered in my initial note of 06/20/2018 SUBJECTIVE: I met with the patient in the evening of 06/20/2018 and I have been called by the nursing staff on a couple of occasions since my last visit with the patient. Overall, today, he is doing "better" per nursing report. Last night, it took 4 people to shower him. He did receive Zyprexa Zydis and then slept reasonably well. Last night, in fact, he slept 7 hours, which is an improvement for him. At times, he is somewhat restless. This evening, he was a little agitated, banging on the table, but redirected. We will go ahead and initiate physical therapy because he was ambulating quite well prior to admission. REVIEW OF SYSTEMS: No CV, , pulmonary, eye, ENT system symptoms on review. Reliability poor. Gait unsteady. MENTAL STATUS EXAM: Oriented to himself. Insight, judgment, recent and remote memory, attention, concentration, fund of knowledge poor, consistent with his diagnosis. IMPRESSION: Major neurocognitive disorder, Alzheimer, vascular with delusion, depression, behavioral disturbance; anxiety disorder, unspecified; impulse control disorder, unspecified. PLAN: No change from a psychiatric standpoint, maintain Exelon 1.5 mg b.i.d., Namenda 10 mg b.i.d., Zoloft 50 mg a day, Zyprexa p.r.n., Seroquel 12.5 mg twice a day, trazodone and Atarax p.r.n., Remeron 7.5 mg p.o. at bedtime. Adjust further as clinically indicated. MAN Connie TAYLOR MD DR: NATAN/alfredo JOB#: [id number] / [id number]
[2018-06-21] MEDS: LEVOTHYROXINE 88 MCG TABLET PO SCH (05:06)
[2018-06-21 06:02] VITALS: BP 149/70
[2018-06-21] MEDS: TAMSULOSIN 0.4 MG CAP.ER.24H. PO SCH (07:56)
[2018-06-21] MEDS: MEMANTINE 10 MG TABLET. PO SCH ×2 (07:56→19:44)
[2018-06-21] MEDS: QUEtiapine 25 MG TABLET. PO SCH ×2 (07:56→18:13)
[2018-06-21] MEDS: RIVASTIGMINE. 1.5 MG CAPSULE. PO SCH ×2 (07:56→18:13)
[2018-06-21] MEDS: SERTRALINE 50 MG TABLET. PO SCH (07:56)
[2018-06-21] MEDS: CARBAMIDE PEROXIDE 6.5% OTIC SOLUTION 15ML BOTTLE. AU SCH ×2 (07:56→19:44)
--- NOTE | 2018-06-21 11:09 | PN ---
DATE: 06/19/2018 PSYCHIATRIC PROGRESS NOTE This late entry 06/19/2018 covers elements not covered in my initial note. SUBJECTIVE: I met with the patient in the evening. Nursing staff called me around midnight. The patient is extremely delirious, agitated, unmanageable despite Zyprexa p.r.n. We did add Atarax p.r.n. He has been quite sedated intermittently since then. Ambulation is impaired. Previously, he was ambulating on his own, in fact walked out of the home. Certainly a change in his environment and probably the PRNs we have used for the agitation ____ contributed to his impaired ambulation. We will get physical therapy involved as well. He tripped over his Broda chair, remains on one-on-one status. Slept 6-1/2 hours previous night. REVIEW OF SYSTEMS: Ambulation impaired. No CV, , pulmonary, eye, ENT system symptoms on review. Reliability poor. MENTAL STATUS EXAM: Oriented to himself. Insight, judgment, recent and remote memory, attention, concentration, fund of knowledge poor, consistent with his diagnosis. IMPRESSION: Major neurocognitive disorder, Alzheimer, vascular with delusion, depression, behavioral disturbance; anxiety disorder, unspecified; impulse control disorder, unspecified. PLAN: Start Remeron 7.5 mg p.o. at bedtime. Change Celexa to Zoloft 50 mg a day, start Seroquel 12.5 mg at 9 a.m. and 5 p.m. Start physical therapy. Discussed behavioral modification with staff. He has to be fed and nursing staff/techs were feeding him and he did eat 100% of his supper. MAN Connie TAYLOR MD DR: NATAN/alfredo JOB#: [id number] / [id number]
[2018-06-21 16:06] VITALS: BP 143/73
[2018-06-21] MEDS: hydrOXYzine HCL 25 MG TABLET PO PRN (18:40)
[2018-06-21] MEDS: MIRTAZAPINE 7.5 MG TABLET. PO SCH (19:44)
[2018-06-21] MEDS: ACETAMINOPHEN 325 MG TABLET PO PRN (20:35)
--- NOTE | 2018-06-21 22:42 | PDOC ---
Exam Note: Justin Note: Please also refer to the separate dictated note~for this date of service dictated separately.~Patient seen individually. Discussed the patient with Nursing staff reviewed the chart.~Reviewed interim history and current functioning. Reviewed vital signs,~Labs/ Radiology~and current medications noted below. Continue current treatment with the changes noted in the dictated addendum note Assessment: Vital Signs: Vital Signs Date Time Temp Pulse Resp B/P (MAP) Pulse Ox O2 Delivery O2 Flow Rate FiO2 06/21/18 16:06 98.1 67 18 143/73 (96) 96 06/21/18 06:02 Room Air I&O Intake and Output 06/21/18 07:01 Intake Total 1262 ml Balance 1262 ml Intake Oral 1262 ml Current Medications: Meds: Current Medications Lorazepam (Ativan) 2 mg 1X ONCE PO Last administered on 06/17/18 19:54; Start 06/17/18 at 20:15; Stop 06/17/18 at 20:16; Status DC Acetaminophen (Tylenol) 650 mg PRN Q6HRS PRN PO PAIN / TEMP Last administered on 06/21/18at 20:35; Start 06/17/18 at 21:30 Multi-Ingredient Ointment (Analgesic [place]) 1 alan PRN QID PRN TP MUSCLE PAIN; Start 06/17/18 at 21:30 Al Hydroxide/Mg Hydroxide (Mylanta Plus Xs) 15 ml PRN AFTMEALHC PRN PO DYSPEPSIA; Start 06/17/18 at 21:30 Magnesium Hydroxide (Milk Of Magnesia) 2,400 mg PRN QHS PRN PO CONSTIPATION; Start 06/17/18 at 21:30 Trazodone HCl (Desyrel) 25 mg PRN QHS PRN PO INSOMNIA Last administered on at 21:02; Start 06/17/18 at 21:30 Olanzapine (ZyPREXA ZYDIS) 2.5 mg PRN Q2HR PRN PO PSYCHOSIS Last administered on 06/21/18at 20:36; Start 06/17/18 at 21:30 Citalopram Hydrobromide (CeleXA) 40 mg DAILY PO Last administered on 06/19/18at 08:09; Start 06/18/18 at 09:00; Stop 06/19/18 at 16:58; Status DC Memantine (Namenda) 10 mg BID PO Last administered on 06/21/18 19:44; Start 06/18/18 at 09:00 Rivastigmine Tartrate (Exelon) 1.5 mg BIDWMEALS PO Last administered on 18:13; Start 06/18/18 at 08:00 Levothyroxine Sodium (Synthroid) 88 mcg DAILYAC PO Last administered on 08:11; Start 06/18/18 at 07:30; Stop 06/19/18 at 17:40; Status DC Tamsulosin HCl (Flomax) 0.4 mg DAILY PO Last administered on 06/21/18 07:56; Start 06/18/18 at 09:00 Hydroxyzine HCl (Atarax) 25 mg PRN Q2HR PRN PO ANXIETY / AGITATION Last administered on 06/21/18 18:40; Start 06/18/18 at 23:00; Stop 06/21/18 at 20:10; Status DC Carbamide Peroxide (Debrox) 5 drop BID AU Last administered on 06/21/18 19:44; Start 06/19/18 at 21:00; Stop 06/24/18 at 20:59 Mirtazapine (Remeron) 7.5 mg QHS PO Last administered on 06/21/18 19:44; Start 06/19/18 at 21:00 Sertraline HCl (Zoloft) 50 mg DAILY PO Last administered on 06/21/18 07:56; Start 06/20/18 at 09:00 Quetiapine Fumarate (SEROquel) 12.5 mg 0900,1700 PO Last administered on 18:13; Start 06/19/18 at 17:00 Levothyroxine Sodium (Synthroid) 88 mcg DAILY06 PO Last administered on 05:06; Start 06/20/18 at 06:00 Active Scripts Active Reported Tamsulosin Hcl 0.4 Mg Cap.er.24h 0.4 Mg PO DAILY Levothyroxine Sodium 88 Mcg Tablet 88 Mcg PO DAILYAC Escitalopram Oxalate 20 Mg Tablet 20 Mg PO DAILY Rivastigmine (Rivastigmine Tartrate) 1.5 Mg Capsule 1.5 Mg PO BID Namenda Xr (Memantine Hcl) 28 Mg Cap.spr.24 28 Mg PO DAILY I have reviewed the current psychotropics carefully including drug interactions. Risk benefit ratio favors no change other than as noted in my dictated progress note. Diagnosis: Problems: (1) Mental status alteration (2) Anxiety disorder (3) Dementia in Alzheimer's disease with delusions (4) Dementia in Alzheimer's disease with depression (5) Dementia, vascular, with delusions (6) Dementia, vascular, with depression (7) Impulse control disorder MILAN TAYLOR MD Jun 21, 2018 22:42
[2018-06-22 05:41] VITALS: BP 164/78
[2018-06-22] MEDS: MEMANTINE 10 MG TABLET. PO SCH ×2 (07:23→19:17)
[2018-06-22] MEDS: LEVOTHYROXINE 88 MCG TABLET PO SCH (07:23)
[2018-06-22] MEDS: SERTRALINE 50 MG TABLET. PO SCH (07:23)
[2018-06-22] MEDS: QUEtiapine 25 MG TABLET. PO SCH ×3 (07:23→19:17)
[2018-06-22] MEDS: TAMSULOSIN 0.4 MG CAP.ER.24H. PO SCH (07:23)
[2018-06-22] MEDS: RIVASTIGMINE. 1.5 MG CAPSULE. PO SCH ×2 (07:23→16:23)
[2018-06-22] MEDS: CARBAMIDE PEROXIDE 6.5% OTIC SOLUTION 15ML BOTTLE. AU SCH ×2 (07:24→19:17)
[2018-06-22 16:05] VITALS: BP 148/78
[2018-06-22] MEDS ORDERED: QUEtiapine 25 MG TABLET. ONE (17:12)
[2018-06-22] MEDS ORDERED: QUEtiapine 25 MG TABLET. PO SCH (19:00)
[2018-06-22] MEDS: MIRTAZAPINE 7.5 MG TABLET. PO SCH (19:17)
--- NOTE | 2018-06-22 22:36 | PDOC ---
Exam Note: Justin Note: Please also refer to the separate dictated note~for this date of service dictated separately.~Patient seen individually. Discussed the patient with Nursing staff reviewed the chart.~Reviewed interim history and current functioning. Reviewed vital signs,~Labs/ Radiology~and current medications noted below. Continue current treatment with the changes noted in the dictated addendum note Assessment: Vital Signs: Vital Signs Date Time Temp Pulse Resp B/P (MAP) Pulse Ox O2 Delivery O2 Flow Rate FiO2 06/22/18 16:05 98.8 77 22 148/78 (101) 97 06/21/18 06:02 Room Air I&O Intake and Output 06/22/18 07:01 Intake Total 1440 ml Balance 1440 ml Intake Oral 1440 ml # Bowel Movements 1 Current Medications: Meds: Current Medications Lorazepam (Ativan) 2 mg 1X ONCE PO Last administered on 06/17/18 19:54; Start 06/17/18 at 20:15; Stop 06/17/18 at 20:16; Status DC Acetaminophen (Tylenol) 650 mg PRN Q6HRS PRN PO PAIN / TEMP Last administered on 06/21/18at 20:35; Start 06/17/18 at 21:30 Multi-Ingredient Ointment (Analgesic [place]) 1 alan PRN QID PRN TP MUSCLE PAIN; Start 06/17/18 at 21:30 Al Hydroxide/Mg Hydroxide (Mylanta Plus Xs) 15 ml PRN AFTMEALHC PRN PO DYSPEPSIA; Start 06/17/18 at 21:30 Magnesium Hydroxide (Milk Of Magnesia) 2,400 mg PRN QHS PRN PO CONSTIPATION; Start 06/17/18 at 21:30 Trazodone HCl (Desyrel) 25 mg PRN QHS PRN PO INSOMNIA Last administered on 21:02; Start 06/17/18 at 21:30 Olanzapine (ZyPREXA ZYDIS) 2.5 mg PRN Q2HR PRN PO PSYCHOSIS Last administered on 06/22/18at 15:39; Start 06/17/18 at 21:30 Citalopram Hydrobromide (CeleXA) 40 mg DAILY PO Last administered on 06/19/18 08:09; Start 06/18/18 at 09:00; Stop 06/19/18 at 16:58; Status DC Memantine (Namenda) 10 mg BID PO Last administered on 06/22/18 19:17; Start 06/18/18 at 09:00 Rivastigmine Tartrate (Exelon) 1.5 mg BIDWMEALS PO Last administered on 16:23; Start 06/18/18 at 08:00 Levothyroxine Sodium (Synthroid) 88 mcg DAILYAC PO Last administered on 08:11; Start 06/18/18 at 07:30; Stop 06/19/18 at 17:40; Status DC Tamsulosin HCl (Flomax) 0.4 mg DAILY PO Last administered on 06/22/18 07:23; Start 06/18/18 at 09:00 Hydroxyzine HCl (Atarax) 25 mg PRN Q2HR PRN PO ANXIETY / AGITATION Last administered on 06/21/18 18:40; Start 06/18/18 at 23:00; Stop 06/21/18 at 20:10; Status DC Carbamide Peroxide (Debrox) 5 drop BID AU Last administered on 06/22/18 19:17; Start 06/19/18 at 21:00; Stop 06/24/18 at 20:59 Mirtazapine (Remeron) 7.5 mg QHS PO Last administered on 06/22/18 19:17; Start 06/19/18 at 21:00 Sertraline HCl (Zoloft) 50 mg DAILY PO Last administered on 06/22/18 07:23; Start 06/20/18 at 09:00 Quetiapine Fumarate (SEROquel) 12.5 mg 0900,1700 PO Last administered on 16:23; Start 06/19/18 at 17:00; Stop 06/22/18 at 16:55; Status DC Levothyroxine Sodium (Synthroid) 88 mcg DAILY06 PO Last administered on 07:23; Start 06/20/18 at 06:00 Quetiapine Fumarate (SEROquel) 12.5 mg BID92 PO ; Start 06/23/18 at 09:00; Stop 06/23/18 at 09:00; Status DC Quetiapine Fumarate (SEROquel) 25 mg DAILY@1900 PO ; Start 06/22/18 at 19:00; Stop 06/22/18 at 19:00; Status DC Quetiapine Fumarate (SEROquel) 12.5 mg BID@0900,1500 PO ; Start 06/23/18 at 09:00 Quetiapine Fumarate (SEROquel) 25 mg STK-MED ONCE .ROUTE ; Start 06/22/18 at 17: 12; Stop 06/22/18 at 17:14; Status DC Quetiapine Fumarate (SEROquel) 12.5 mg DAILY@1900 PO Last administered on at 19:17; Start 06/22/18 at 19:00 Active Scripts Active Reported Tamsulosin Hcl 0.4 Mg Cap.er.24h 0.4 Mg PO DAILY Levothyroxine Sodium 88 Mcg Tablet 88 Mcg PO DAILYAC Escitalopram Oxalate 20 Mg Tablet 20 Mg PO DAILY Rivastigmine (Rivastigmine Tartrate) 1.5 Mg Capsule 1.5 Mg PO BID Namenda Xr (Memantine Hcl) 28 Mg Cap.spr.24 28 Mg PO DAILY I have reviewed the current psychotropics carefully including drug interactions. Risk benefit ratio favors no change other than as noted in my dictated progress note. Diagnosis: Problems: (1) Mental status alteration (2) Anxiety disorder (3) Dementia in Alzheimer's disease with delusions (4) Dementia in Alzheimer's disease with depression (5) Dementia, vascular, with delusions (6) Dementia, vascular, with depression (7) Impulse control disorder MILAN TAYLOR MD Jun 22, 2018 22:36
--- NOTE | 2018-06-22 23:35 | PN ---
DATE: 06/21/2018 PSYCHIATRIC PROGRESS NOTE This late entry 06/21/2018 covers elements, not covered in my initial note. SUBJECTIVE: I met with the patient in the evening. The patient slept 5-3/4 hours previous night. He has been ambulating more during the day. His visited per nursing staff and he did better with her. He is having difficulty finding the right words and after supper time, he was getting extremely agitated. He had to be placed in the [place]. He is spitting at staff, hitting, kicking. I did talk to Patria, his , and discussed his diagnosis, current treatment options. He has had a rash from the Exelon patch and we will avoid this, and we will stop the Atarax p.r.n. REVIEW OF SYSTEMS: No CV, , pulmonary, eye, ENT system symptoms on review. Gait unsteady. MENTAL STATUS EXAM: Oriented to himself. Insight, judgment, recent and remote memory, attention, concentration, fund of knowledge poor, consistent with his diagnosis. IMPRESSION: Major neurocognitive disorder, Alzheimer, vascular with delusion, depression, behavioral disturbance. Rest unchanged. PLAN: No change from initial note. Stop the Atarax. Rest unchanged. MILAN TAYLOR MD DR: NATAN/alfredo JOB#: [id number] / [id number]
[2018-06-23] MEDS: traZODone 50 MG TABLET. PO PRN ×2 (01:30→19:13)
[2018-06-23 05:37] VITALS: BP 119/74
[2018-06-23] MEDS: LEVOTHYROXINE 88 MCG TABLET PO SCH (05:41)
[2018-06-23] MEDS: QUEtiapine 25 MG TABLET. PO SCH ×3 (07:47→18:16)
[2018-06-23] MEDS: CARBAMIDE PEROXIDE 6.5% OTIC SOLUTION 15ML BOTTLE. AU SCH ×2 (07:47→19:12)
[2018-06-23] MEDS: RIVASTIGMINE. 1.5 MG CAPSULE. PO SCH ×2 (07:47→16:29)
[2018-06-23] MEDS: TAMSULOSIN 0.4 MG CAP.ER.24H. PO SCH (07:47)
[2018-06-23] MEDS: SERTRALINE 50 MG TABLET. PO SCH (07:48)
[2018-06-23] MEDS: MEMANTINE 10 MG TABLET. PO SCH ×2 (07:48→19:13)
[2018-06-23] MEDS ORDERED: QUEtiapine 25 MG TABLET. PO SCH (09:00)
[2018-06-23] MEDS: RIVASTIGMINE 3 MG CAPSULE. PO SCH (18:16)
[2018-06-23] MEDS ORDERED: NYSTATIN TOPICAL POWDER 15GM BOTTLE. TP ONE (19:15)
[2018-06-23] MEDS: NYSTATIN TOPICAL POWDER 15GM BOTTLE. TP SCH (19:18)
[2018-06-23] MEDS: MIRTAZAPINE 15 MG TABLET PO SCH (19:46)
[2018-06-23] MEDS ORDERED: RIVASTIGMINE 3 MG CAPSULE. PO SCH (21:00)
--- NOTE | 2018-06-23 22:56 | PDOC ---
Exam Note: Justin Note: Please also refer to the separate dictated note~for this date of service dictated separately.~Patient seen individually. Discussed the patient with Nursing staff reviewed the chart.~Reviewed interim history and current functioning. Reviewed vital signs,~Labs/ Radiology~and current medications noted below. Continue current treatment with the changes noted in the dictated addendum note Assessment: Vital Signs: Vital Signs Date Time Temp Pulse Resp B/P (MAP) Pulse Ox O2 Delivery O2 Flow Rate FiO2 06/23/18 05:37 98.2 86 18 119/74 (89) 93 06/21/18 06:02 Room Air I&O Intake and Output 06/23/18 07:01 Intake Total 840 ml Balance 840 ml Intake Oral 840 ml Current Medications: Meds: Current Medications Lorazepam (Ativan) 2 mg 1X ONCE PO Last administered on 06/17/18 19:54; Start 06/17/18 at 20:15; Stop 06/17/18 at 20:16; Status DC Acetaminophen (Tylenol) 650 mg PRN Q6HRS PRN PO PAIN / TEMP Last administered on 06/21/18at 20:35; Start 06/17/18 at 21:30 Multi-Ingredient Ointment (Analgesic [place]) 1 alan PRN QID PRN TP MUSCLE PAIN; Start 06/17/18 at 21:30 Al Hydroxide/Mg Hydroxide (Mylanta Plus Xs) 15 ml PRN AFTMEALHC PRN PO DYSPEPSIA; Start 06/17/18 at 21:30 Magnesium Hydroxide (Milk Of Magnesia) 2,400 mg PRN QHS PRN PO CONSTIPATION; Start 06/17/18 at 21:30 Trazodone HCl (Desyrel) 25 mg PRN QHS PRN PO INSOMNIA Last administered on 19:13; Start 06/17/18 at 21:30 Olanzapine (ZyPREXA ZYDIS) 2.5 mg PRN Q2HR PRN PO PSYCHOSIS Last administered on 06/23/18at 12:50; Start 06/17/18 at 21:30 Citalopram Hydrobromide (CeleXA) 40 mg DAILY PO Last administered on 06/19/18at 08:09; Start 06/18/18 at 09:00; Stop 06/19/18 at 16:58; Status DC Memantine (Namenda) 10 mg BID PO Last administered on 06/23/18 19:13; Start 06/18/18 at 09:00 Rivastigmine Tartrate (Exelon) 1.5 mg BIDWMEALS PO Last administered on 07:47; Start 06/18/18 at 08:00; Stop 06/23/18 at 16:38; Status DC Levothyroxine Sodium (Synthroid) 88 mcg DAILYAC PO Last administered on 08:11; Start 06/18/18 at 07:30; Stop 06/19/18 at 17:40; Status DC Tamsulosin HCl (Flomax) 0.4 mg DAILY PO Last administered on 06/23/18 07:47; Start 06/18/18 at 09:00 Hydroxyzine HCl (Atarax) 25 mg PRN Q2HR PRN PO ANXIETY / AGITATION Last administered on 06/21/18 18:40; Start 06/18/18 at 23:00; Stop 06/21/18 at 20:10; Status DC Carbamide Peroxide (Debrox) 5 drop BID AU Last administered on 06/23/18 19:12; Start 06/19/18 at 21:00; Stop 06/24/18 at 20:59 Mirtazapine (Remeron) 7.5 mg QHS PO Last administered on 06/22/18 19:17; Start 06/19/18 at 21:00; Stop 06/23/18 at 18:12; Status DC Sertraline HCl (Zoloft) 50 mg DAILY PO Last administered on 06/23/18 07:48; Start 06/20/18 at 09:00 Quetiapine Fumarate (SEROquel) 12.5 mg 0900,1700 PO Last administered on 16:23; Start 06/19/18 at 17:00; Stop 06/22/18 at 16:55; Status DC Levothyroxine Sodium (Synthroid) 88 mcg DAILY06 PO Last administered on 05:41; Start 06/20/18 at 06:00 Quetiapine Fumarate (SEROquel) 12.5 mg BID92 PO ; Start 06/23/18 at 09:00; Stop 06/23/18 at 09:00; Status DC Quetiapine Fumarate (SEROquel) 25 mg DAILY@1900 PO ; Start 06/22/18 at 19:00; Stop 06/22/18 at 19:00; Status DC Quetiapine Fumarate (SEROquel) 12.5 mg BID@0900,1500 PO Last administered on 06/23/18at 12:50; Start 06/23/18 at 09:00 Quetiapine Fumarate (SEROquel) 25 mg STK-MED ONCE .ROUTE ; Start 06/22/18 at 17: 12; Stop 06/22/18 at 17:14; Status DC Quetiapine Fumarate (SEROquel) 12.5 mg DAILY@1900 PO Last administered on at 18:16; Start 06/22/18 at 19:00 Rivastigmine Tartrate (Exelon) 1.5 mg DAILY PO ; Start 06/24/18 at 09:00; Stop at 11:00 Rivastigmine Tartrate (Exelon) 3 mg HS PO ; Start 06/23/18 at 21:00; Stop at 21:00; Status DC Rivastigmine Tartrate (Exelon) 3 mg BIDWMEALS PO Last administered on 06/23/18at 18:16; Start 06/23/18 at 17:00 Rivastigmine Tartrate (Exelon) 3 mg HS PO ; Start 06/27/18 at 09:00 Nystatin (Nystop) 1 alan BID TP Last administered on 06/23/18at 19:18; Start at 21:00 Mirtazapine (Remeron) 15 mg QHS PO Last administered on 06/23/18at 19:46; Start 06/23/18 at 21:00 Nystatin (Nystop) 15 alan STK-MED ONCE TP Last administered on 06/23/18at 19:15; Start 06/23/18 at 19:15; Stop 06/23/18 at 19:17; Status DC Active Scripts Active Reported Tamsulosin Hcl 0.4 Mg Cap.er.24h 0.4 Mg PO DAILY Levothyroxine Sodium 88 Mcg Tablet 88 Mcg PO DAILYAC Escitalopram Oxalate 20 Mg Tablet 20 Mg PO DAILY Rivastigmine (Rivastigmine Tartrate) 1.5 Mg Capsule 1.5 Mg PO BID Namenda Xr (Memantine Hcl) 28 Mg Cap.spr.24 28 Mg PO DAILY I have reviewed the current psychotropics carefully including drug interactions. Risk benefit ratio favors no change other than as noted in my dictated progress note. Diagnosis: Problems: (1) Mental status alteration (2) Anxiety disorder (3) Dementia in Alzheimer's disease with delusions (4) Dementia in Alzheimer's disease with depression (5) Dementia, vascular, with delusions (6) Dementia, vascular, with depression (7) Impulse control disorder MILAN TAYLOR MD Jun 23, 2018 22:56
--- NOTE | 2018-06-24 01:33 | PN ---
DATE: 06/22/2018 PSYCHIATRIC PROGRESS NOTE This late entry 06/22/2018 covers elements, not covered in my initial note. SUBJECTIVE: I met with the patient in the evening. The patient slept 6-3/4 hours previous night. He has done reasonably well until about 4 p.m. and then he was extremely agitated, labile in his mood, somewhat delirious, was lying himself on the floor of the quiet area, trying to grab onto the lock of the door as I met with him, oblivious of his situation. REVIEW OF SYSTEMS: No CV, , pulmonary, eye, ENT system symptoms on review. Reliability poor. MENTAL STATUS EXAM: Oriented to himself. Insight, judgment, recent and remote memory, attention, concentration, fund of knowledge poor, consistent with his diagnosis. IMPRESSION: Major neurocognitive disorder, Alzheimer, vascular with delusion, depression, behavioral disturbance; anxiety disorder, unspecified. Rest unchanged. PLAN: The patient has done well until about 4 p.m. and that is when he gets more confused, delirious. This appears consistent with sundowning. He is currently on Seroquel 12.5 mg 0900 and 1700. We will change this 1700 dosage to 1500 to help assist with the 4:00 p.m. agitation and add another 12.5 mg at 1900. Maintain Remeron 7.5 mg p.o. at bedtime. He slept better on this for 6-3/4 hours. Zoloft was discontinued. He remains on Exelon tablet 1.5 b.i.d. and in a day or so, we will increase to 3 mg b.i.d. Continue rest of the psychotropics unchanged. MAN Connie TAYLOR MD DR: NATAN/alfredo JOB#: [id number] / [id number]
[2018-06-24] MEDS: LEVOTHYROXINE 88 MCG TABLET PO SCH (05:44)
[2018-06-24 05:54] VITALS: BP 154/71
[2018-06-24] MEDS ORDERED: RIVASTIGMINE. 1.5 MG CAPSULE. PO SCH (09:00)
[2018-06-24] MEDS: RIVASTIGMINE 3 MG CAPSULE. PO SCH ×2 (10:54→19:50)
[2018-06-24] MEDS: TAMSULOSIN 0.4 MG CAP.ER.24H. PO SCH (10:55)
[2018-06-24] MEDS: QUEtiapine 25 MG TABLET. PO SCH ×3 (10:55→19:43)
[2018-06-24] MEDS: SERTRALINE 50 MG TABLET. PO SCH (10:56)
[2018-06-24] MEDS: MEMANTINE 10 MG TABLET. PO SCH ×2 (10:56→19:43)
[2018-06-24] MEDS: NYSTATIN TOPICAL POWDER 15GM BOTTLE. TP SCH ×2 (10:59→19:48)
[2018-06-24] MEDS: CARBAMIDE PEROXIDE 6.5% OTIC SOLUTION 15ML BOTTLE. AU SCH (11:00)
--- NOTE | 2018-06-24 12:06 | PN ---
DATE: 06/23/2018 PSYCHIATRIC PROGRESS NOTE This is a late entry for 06/23/2018 and covers elements not covered in my initial note. SUBJECTIVE: I met with the patient in the evening. The patient slept just 1-1/4 hours previous night. He has had a very difficult day, was in the quiet room fitness studies teacher, confused, combative then, slept off for some time later. By the time I met him in the evening, he had to be almost on one-on-one with nursing staff, totally disorganized, even unable to feed himself, certainly oblivious of his surroundings. REVIEW OF SYSTEMS: There are no CV, , pulmonary, eye, ENT system symptoms on review. MENTAL STATUS EXAM: Oriented to himself. Insight, judgment, recent and remote memory, attention, concentration, fund of knowledge poor, consistent with his diagnosis. IMPRESSION: Major neurocognitive disorder, Alzheimer, vascular with delusion, depression, behavioral disturbance; anxiety disorder, unspecified; impulse control disorder, unspecified. PLAN: Increase Remeron from 7.5 mg at bedtime to 15 mg at bedtime. Increase Exelon from 1.5 b.i.d. to 1.5 mg a.m. and 3 mg p.m. for 3 days, then 3 mg twice a day thereafter. Continue Zoloft 50 mg a day, Namenda 10 mg b.i.d., Zyprexa p.r.n., Seroquel 12.5 mg 3 times a day. Adjust further as clinically indicated. MILAN TAYLOR MD DR: NATAN/alfredo JOB#: [id number] / [id number]
[2018-06-24] MEDS: ACETAMINOPHEN 325 MG TABLET PO PRN (13:11)
[2018-06-24] MEDS: METHYL SALICYLATE/MENTHOL TOPICAL OINTMENT 29GM TUBE. TP PRN (13:11)
[2018-06-24] MEDS: MIRTAZAPINE 15 MG TABLET PO SCH (19:43)
[2018-06-24] MEDS: traZODone 50 MG TABLET. PO PRN ×2 (20:14→23:17)
--- NOTE | 2018-06-24 22:45 | PDOC ---
Exam Note: Justin Note: Please also refer to the separate dictated note~for this date of service dictated separately.~Patient seen individually. Discussed the patient with Nursing staff reviewed the chart.~Reviewed interim history and current functioning. Reviewed vital signs,~Labs/ Radiology~and current medications noted below. Continue current treatment with the changes noted in the dictated addendum note Assessment: Vital Signs: Vital Signs Date Time Temp Pulse Resp B/P (MAP) Pulse Ox O2 Delivery O2 Flow Rate FiO2 06/24/18 21:00 06/24/18 05:54 97.4 79 20 95 06/21/18 06:02 Room Air I&O Intake and Output 06/24/18 07:01 Intake Total 840 ml Balance 840 ml Intake Oral 840 ml Current Medications: Meds: Current Medications Lorazepam (Ativan) 2 mg 1X ONCE PO Last administered on 06/17/18at 19:54; Start 06/17/18 at 20:15; Stop 06/17/18 at 20:16; Status DC Acetaminophen (Tylenol) 650 mg PRN Q6HRS PRN PO PAIN / TEMP Last administered on 06/24/18 13:11; Start 06/17/18 at 21:30 Multi-Ingredient Ointment (Analgesic [place]) 1 alan PRN QID PRN TP MUSCLE PAIN Last administered on 06/24/18 13:11; Start 06/17/18 at 21:30 Al Hydroxide/Mg Hydroxide (Mylanta Plus Xs) 15 ml PRN AFTMEALHC PRN PO DYSPEPSIA; Start 06/17/18 at 21:30 Magnesium Hydroxide (Milk Of Magnesia) 2,400 mg PRN QHS PRN PO CONSTIPATION; Start 06/17/18 at 21:30 Trazodone HCl (Desyrel) 25 mg PRN QHS PRN PO INSOMNIA Last administered on 20:14; Start 06/17/18 at 21:30 Olanzapine (ZyPREXA ZYDIS) 2.5 mg PRN Q2HR PRN PO PSYCHOSIS Last administered on 06/24/18at 22:19; Start 06/17/18 at 21:30 Citalopram Hydrobromide (CeleXA) 40 mg DAILY PO Last administered on 06/19/18at 08:09; Start 06/18/18 at 09:00; Stop 06/19/18 at 16:58; Status DC Memantine (Namenda) 10 mg BID PO Last administered on 06/24/18 19:43; Start 06/18/18 at 09:00 Rivastigmine Tartrate (Exelon) 1.5 mg BIDWMEALS PO Last administered on 07:47; Start 06/18/18 at 08:00; Stop 06/23/18 at 16:38; Status DC Levothyroxine Sodium (Synthroid) 88 mcg DAILYAC PO Last administered on 08:11; Start 06/18/18 at 07:30; Stop 06/19/18 at 17:40; Status DC Tamsulosin HCl (Flomax) 0.4 mg DAILY PO Last administered on 06/24/18 10:55; Start 06/18/18 at 09:00 Hydroxyzine HCl (Atarax) 25 mg PRN Q2HR PRN PO ANXIETY / AGITATION Last administered on 06/21/18 18:40; Start 06/18/18 at 23:00; Stop 06/21/18 at 20:10; Status DC Carbamide Peroxide (Debrox) 5 drop BID AU Last administered on 06/24/18 11:00; Start 06/19/18 at 21:00; Stop 06/24/18 at 20:59; Status DC Mirtazapine (Remeron) 7.5 mg QHS PO Last administered on 06/22/18 19:17; Start 06/19/18 at 21:00; Stop 06/23/18 at 18:12; Status DC Sertraline HCl (Zoloft) 50 mg DAILY PO Last administered on 06/24/18 10:56; Start 06/20/18 at 09:00; Stop 06/24/18 at 18:42; Status DC Quetiapine Fumarate (SEROquel) 12.5 mg 0900,1700 PO Last administered on 16:23; Start 06/19/18 at 17:00; Stop 06/22/18 at 16:55; Status DC Levothyroxine Sodium (Synthroid) 88 mcg DAILY06 PO Last administered on 05:44; Start 06/20/18 at 06:00 Quetiapine Fumarate (SEROquel) 12.5 mg BID92 PO ; Start 06/23/18 at 09:00; Stop 06/23/18 at 09:00; Status DC Quetiapine Fumarate (SEROquel) 25 mg DAILY@1900 PO ; Start 06/22/18 at 19:00; Stop 06/22/18 at 19:00; Status DC Quetiapine Fumarate (SEROquel) 12.5 mg BID@0900,1500 PO Last administered on 06/24/18at 16:33; Start 06/23/18 at 09:00; Stop 06/24/18 at 18:46; Status DC Quetiapine Fumarate (SEROquel) 25 mg STK-MED ONCE .ROUTE ; Start 06/22/18 at 17: 12; Stop 06/22/18 at 17:14; Status DC Quetiapine Fumarate (SEROquel) 12.5 mg DAILY@1900 PO Last administered on at 18:16; Start 06/22/18 at 19:00; Stop 06/24/18 at 18:46; Status DC Rivastigmine Tartrate (Exelon) 1.5 mg DAILY PO Last administered on 06/24/18at 10 :58; Start 06/24/18 at 09:00; Stop 06/24/18 at 14:14; Status DC Rivastigmine Tartrate (Exelon) 3 mg HS PO ; Start 06/23/18 at 21:00; Stop at 21:00; Status DC Rivastigmine Tartrate (Exelon) 3 mg BIDWMEALS PO Last administered on 06/24/18at 10:54; Start 06/23/18 at 17:00; Stop 06/24/18 at 14:14; Status DC Rivastigmine Tartrate (Exelon) 3 mg HS PO ; Start 06/27/18 at 09:00; Stop at 09:00; Status DC Nystatin (Nystop) 1 alan BID TP Last administered on 06/24/18at 19:48; Start at 21:00 Mirtazapine (Remeron) 15 mg QHS PO Last administered on 06/24/18at 19:43; Start 06/23/18 at 21:00 Nystatin (Nystop) 15 alan STK-MED ONCE TP Last administered on 06/23/18at 19:15; Start 06/23/18 at 19:15; Stop 06/23/18 at 19:17; Status DC Rivastigmine Tartrate (Exelon) 3 mg BID PO Last administered on 06/24/18at 19:50 ; Start 06/24/18 at 21:00 Fluvoxamine Maleate (Luvox) 25 mg QHS PO Last administered on 06/24/18at 19:47; Start 06/24/18 at 21:00; Stop 06/26/18 at 19:00 Fluvoxamine Maleate (Luvox) 50 mg QHS PO ; Start 06/26/18 at 21:00 Quetiapine Fumarate (SEROquel) 25 mg DAILY@1900 PO Last administered on at 19:43; Start 06/24/18 at 19:00 Quetiapine Fumarate (SEROquel) 25 mg BID@0900,1500 PO ; Start 06/25/18 at 09:00 Active Scripts Active Reported Tamsulosin Hcl 0.4 Mg Cap.er.24h 0.4 Mg PO DAILY Levothyroxine Sodium 88 Mcg Tablet 88 Mcg PO DAILYAC Escitalopram Oxalate 20 Mg Tablet 20 Mg PO DAILY Rivastigmine (Rivastigmine Tartrate) 1.5 Mg Capsule 1.5 Mg PO BID Namenda Xr (Memantine Hcl) 28 Mg Cap.spr.24 28 Mg PO DAILY I have reviewed the current psychotropics carefully including drug interactions. Risk benefit ratio favors no change other than as noted in my dictated progress note. Diagnosis: Problems: (1) Mental status alteration (2) Anxiety disorder (3) Dementia in Alzheimer's disease with delusions (4) Dementia in Alzheimer's disease with depression (5) Dementia, vascular, with delusions (6) Dementia, vascular, with depression (7) Impulse control disorder MILAN TAYLOR MD Jun 24, 2018 22:45
[2018-06-25] MEDS: MAGNESIUM HYDROXIDE 2,400 MG/30 ML ORAL.SUSP. PO PRN (01:42)
[2018-06-25 05:48] VITALS: BP 166/76
[2018-06-25] MEDS: LEVOTHYROXINE 88 MCG TABLET PO SCH (05:55)
[2018-06-25] MEDS: TAMSULOSIN 0.4 MG CAP.ER.24H. PO SCH (08:42)
[2018-06-25] MEDS: RIVASTIGMINE 3 MG CAPSULE. PO SCH ×2 (08:43→19:23)
[2018-06-25] MEDS: MEMANTINE 10 MG TABLET. PO SCH ×2 (08:43→19:23)
[2018-06-25] MEDS: NYSTATIN TOPICAL POWDER 15GM BOTTLE. TP SCH ×2 (08:44→19:24)
[2018-06-25] MEDS: QUEtiapine 25 MG TABLET. PO SCH ×3 (08:44→19:24)
[2018-06-25 13:41] LABS: BASO % 0 % (0-3); EOS # 0.3 x10^3/uL (0.0-0.7); EOS % 3 % (0-3); HEMATOCRIT 36.2 % (39.0-53.0); HEMOGLOBIN 12.4 g/dL (13.0-17.5); LYMPH # 1.1 x10^3/uL (1.0-4.8); LYMPH % 12 % (24-48); MEAN CORPUSCULAR HEMOGLOBIN 32 pg (25-35); MEAN CORPUSCULAR HGB CONC 34 g/dL (31-37); MEAN CORPUSCULAR VOLUME 93 fL (79-100); MONO # 1.4 x10^3/uL (0.0-1.1); MONO % 16 % (0-9); NEUT # 5.9 x10^3uL (1.8-7.7); NEUT % 68 % (31-73); PLATELET COUNT 230 x10^3/uL (140-400); RED CELL DISTRIBUTION WIDTH 13.8 % (11.5-14.5); WHITE BLOOD COUNT 8.7 x10^3/uL (4.0-11.0)
[2018-06-25 13:50] LABS: ALBUMIN 3.3 g/dL (3.4-5.0); CREATININE 1.5 mg/dL (0.7-1.3); GFR 45.3; POTASSIUM 4.5 mmol/L (3.5-5.1); TOTAL BILIRUBIN 0.6 mg/dL (0.2-1.0)
[2018-06-25 14:02] LABS: ALBUMIN/GLOBULIN RATIO 0.7 (1.0-1.7); CALCIUM 8.6 mg/dL (8.5-10.1); TOTAL PROTEIN 8.2 g/dL (6.4-8.2)
[2018-06-25 15:55] VITALS: BP 130/74
[2018-06-25] MEDS: MIRTAZAPINE 15 MG TABLET PO SCH (19:23)
--- NOTE | 2018-06-25 19:57 | PN ---
DATE: 06/24/2018 PSYCHIATRIC PROGRESS NOTE This late entry 06/24/2018 covers elements not covered in my initial note. SUBJECTIVE: I met with the patient in the evening and staffed at a treatment team meeting with the entire team and the patient's , Sadie attended this meeting as well. The patient remains on one-on-one status. We reviewed his history, diagnosis, progress, current medications at length. The patient slept 6 hours on previous night on average, but slept 7-3/4 hours the night immediately preceding 06/24/2018. He is taking his medications whole, did receive trazodone at night. The shared with us that he responds very positively to music to help with some of his behavioral dyscontrol, which remains problematic. He has been quite impulsive, obsessive, disruptive, was unable to recognize his . REVIEW OF SYSTEMS: Ambulation impaired. No CV, , pulmonary, eye, ENT system symptoms on review. Reliability poor. MENTAL STATUS EXAM: Oriented to himself. Insight, judgment, recent and remote memory, attention, concentration, fund of knowledge poor, consistent with his diagnosis. IMPRESSION: Major neurocognitive disorder, Alzheimer, vascular with delusion, depression, behavioral disturbance. Rest unchanged. PLAN: The patient is quite obsessive, and we will change the Zoloft to Luvox 25 mg at bedtime for 2 days and then 50 mg at bedtime and increase the Seroquel 12.5 mg t.i.d. to 25 mg t.i.d., Zyprexa seems ineffective. I am trying to avoid Depakote as it will certainly impaired with ambulation. Rest unchanged. MAN Connie TAYLOR MD DR: NATAN/alfredo JOB#: [id number] / [id number]
--- NOTE | 2018-06-25 22:12 | PN ---
DATE: 06/25/2018 This note covers elements not covered in my initial note of 06/25/2018. SUBJECTIVE: I met with the patient in the afternoon. The patient did not sleep at all last night. Hemoglobin and hematocrit are low. We will defer to Dr. Fournier. He has been trying to follow instructions, but extremely disorganized, especially with his meds. Gait unsteady. REVIEW OF SYSTEMS: No CV, , pulmonary, eye, ENT system symptoms on review. Reliability poor. MENTAL STATUS EXAM: Oriented to himself. Insight, judgment, recent and remote memory, attention, concentration, fund of knowledge poor, consistent with his diagnosis mentioned in my initial note. PLAN: Continue psychotropics from initial note. We have increased the Remeron. He remains on Luvox, Namenda, Seroquel. MAN Connie TAYLOR MD DR: NATAN/alfredo JOB#: [id number] / [id number]
--- NOTE | 2018-06-25 22:54 | PDOC ---
Exam Note: Justin Note: Please also refer to the separate dictated note~for this date of service dictated separately.~Patient seen individually. Discussed the patient with Nursing staff reviewed the chart.~Reviewed interim history and current functioning. Reviewed vital signs,~Labs/ Radiology~and current medications noted below. Continue current treatment with the changes noted in the dictated addendum note Assessment: Vital Signs: Vital Signs Date Time Temp Pulse Resp B/P (MAP) Pulse Ox O2 Delivery O2 Flow Rate FiO2 06/25/18 15:55 98.9 80 19 130/74 (92) 93 Room Air I&O Intake and Output 06/25/18 07:01 Intake Total 360 ml Balance 360 ml Intake Oral 360 ml Labs: Laboratory Tests Test 06/25/18 13:30 White Blood Count 8.7 x10^3/uL (4.0-11.0) Red Blood Count 3.90 x10^6/uL (4.30-5.70) L Hemoglobin 12.4 g/dL (13.0-17.5) L Hematocrit 36.2 % (39.0-53.0) L Mean Corpuscular Volume 93 fL (79-100) Mean Corpuscular Hemoglobin 32 pg (25-35) Mean Corpuscular Hemoglobin Concent 34 g/dL (31-37) Red Cell Distribution Width 13.8 % (11.5-14.5) Platelet Count 230 x10^3/uL (140-400) Neutrophils (%) (Auto) 68 % (31-73) Lymphocytes (%) (Auto) 12 % (24-48) L Monocytes (%) (Auto) 16 % (0-9) H Eosinophils (%) (Auto) 3 % (0-3) Basophils (%) (Auto) 0 % (0-3) Neutrophils # (Auto) 5.9 x10^3uL (1.8-7.7) Lymphocytes # (Auto) 1.1 x10^3/uL (1.0-4.8) Monocytes # (Auto) 1.4 x10^3/uL (0.0-1.1) H Eosinophils # (Auto) 0.3 x10^3/uL (0.0-0.7) Basophils # (Auto) 0.0 x10^3/uL (0.0-0.2) Sodium Level 140 mmol/L (136-145) Potassium Level 4.5 mmol/L (3.5-5.1) Chloride Level 104 mmol/L (98-107) Carbon Dioxide Level 27 mmol/L (21-32) Anion Gap 9 (6-14) Blood Urea Nitrogen 28 mg/dL (8-26) H Creatinine 1.5 mg/dL (0.7-1.3) H Estimated GFR (Cockcroft-Gault) 45.3 BUN/Creatinine Ratio 19 (6-20) Glucose Level 107 mg/dL (70-99) H Calcium Level 8.6 mg/dL (8.5-10.1) Total Bilirubin 0.6 mg/dL (0.2-1.0) Aspartate Amino Transferase (AST) 32 U/L (15-37) Alanine Aminotransferase (ALT) 37 U/L (16-63) Alkaline Phosphatase 94 U/L (46-116) Total Protein 8.2 g/dL (6.4-8.2) Albumin 3.3 g/dL (3.4-5.0) L Albumin/Globulin Ratio 0.7 (1.0-1.7) L Current Medications: Meds: Current Medications Lorazepam (Ativan) 2 mg 1X ONCE PO Last administered on 06/17/18 19:54; Start 06/17/18 at 20:15; Stop 06/17/18 at 20:16; Status DC Acetaminophen (Tylenol) 650 mg PRN Q6HRS PRN PO PAIN / TEMP Last administered on 06/24/18 13:11; Start 06/17/18 at 21:30 Multi-Ingredient Ointment (Analgesic [place]) 1 alan PRN QID PRN TP MUSCLE PAIN Last administered on 06/24/18 13:11; Start 06/17/18 at 21:30 Al Hydroxide/Mg Hydroxide (Mylanta Plus Xs) 15 ml PRN AFTMEALHC PRN PO DYSPEPSIA; Start 06/17/18 at 21:30 Magnesium Hydroxide (Milk Of Magnesia) 2,400 mg PRN QHS PRN PO CONSTIPATION Last administered on 06/25/18 01:42; Start 06/17/18 at 21:30 Trazodone HCl (Desyrel) 25 mg PRN QHS PRN PO INSOMNIA Last administered on 23:17; Start 06/17/18 at 21:30 Olanzapine (ZyPREXA ZYDIS) 2.5 mg PRN Q2HR PRN PO PSYCHOSIS Last administered on 06/25/18 15:14; Start 06/17/18 at 21:30 Citalopram Hydrobromide (CeleXA) 40 mg DAILY PO Last administered on 06/19/18 08:09; Start 06/18/18 at 09:00; Stop 06/19/18 at 16:58; Status DC Memantine (Namenda) 10 mg BID PO Last administered on 06/25/18 19:23; Start at 09:00 Rivastigmine Tartrate (Exelon) 1.5 mg BIDWMEALS PO Last administered on 07:47; Start 06/18/18 at 08:00; Stop 06/23/18 at 16:38; Status DC Levothyroxine Sodium (Synthroid) 88 mcg DAILYAC PO Last administered on 08:11; Start 06/18/18 at 07:30; Stop 06/19/18 at 17:40; Status DC Tamsulosin HCl (Flomax) 0.4 mg DAILY PO Last administered on 06/25/18 08:42; Start 06/18/18 at 09:00 Hydroxyzine HCl (Atarax) 25 mg PRN Q2HR PRN PO ANXIETY / AGITATION Last administered on 06/21/18 18:40; Start 06/18/18 at 23:00; Stop 06/21/18 at 20:10; Status DC Carbamide Peroxide (Debrox) 5 drop BID AU Last administered on 06/24/18 11:00; Start 06/19/18 at 21:00; Stop 06/24/18 at 20:59; Status DC Mirtazapine (Remeron) 7.5 mg QHS PO Last administered on 06/22/18 19:17; Start 06/19/18 at 21:00; Stop 06/23/18 at 18:12; Status DC Sertraline HCl (Zoloft) 50 mg DAILY PO Last administered on 06/24/18 10:56; Start 06/20/18 at 09:00; Stop 06/24/18 at 18:42; Status DC Quetiapine Fumarate (SEROquel) 12.5 mg 0900,1700 PO Last administered on at 16:23; Start 06/19/18 at 17:00; Stop 06/22/18 at 16:55; Status DC Levothyroxine Sodium (Synthroid) 88 mcg DAILY06 PO Last administered on at 05:55; Start 06/20/18 at 06:00 Quetiapine Fumarate (SEROquel) 12.5 mg BID92 PO ; Start 06/23/18 at 09:00; Stop 06/23/18 at 09:00; Status DC Quetiapine Fumarate (SEROquel) 25 mg DAILY@1900 PO ; Start 06/22/18 at 19:00; Stop 06/22/18 at 19:00; Status DC Quetiapine Fumarate (SEROquel) 12.5 mg BID@0900,1500 PO Last administered on 06/24/18at 16:33; Start 06/23/18 at 09:00; Stop 06/24/18 at 18:46; Status DC Quetiapine Fumarate (SEROquel) 25 mg STK-MED ONCE .ROUTE ; Start 06/22/18 at 17: 12; Stop 06/22/18 at 17:14; Status DC Quetiapine Fumarate (SEROquel) 12.5 mg DAILY@1900 PO Last administered on at 18:16; Start 06/22/18 at 19:00; Stop 06/24/18 at 18:46; Status DC Rivastigmine Tartrate (Exelon) 1.5 mg DAILY PO Last administered on 06/24/18at 10 :58; Start 06/24/18 at 09:00; Stop 06/24/18 at 14:14; Status DC Rivastigmine Tartrate (Exelon) 3 mg HS PO ; Start 06/23/18 at 21:00; Stop at 21:00; Status DC Rivastigmine Tartrate (Exelon) 3 mg BIDWMEALS PO Last administered on 06/24/18at 10:54; Start 06/23/18 at 17:00; Stop 06/24/18 at 14:14; Status DC Rivastigmine Tartrate (Exelon) 3 mg HS PO ; Start 06/27/18 at 09:00; Stop at 09:00; Status DC Nystatin (Nystop) 1 alan BID TP Last administered on 06/25/18at 19:24; Start 06/23 at 21:00 Mirtazapine (Remeron) 15 mg QHS PO Last administered on 06/25/18at 19:23; Start 06/23/18 at 21:00 Nystatin (Nystop) 15 alan STK-MED ONCE TP Last administered on 06/23/18at 19:15; Start 06/23/18 at 19:15; Stop 06/23/18 at 19:17; Status DC Rivastigmine Tartrate (Exelon) 3 mg BID PO Last administered on 06/25/18at 19:23 ; Start 06/24/18 at 21:00 Fluvoxamine Maleate (Luvox) 25 mg QHS PO Last administered on 06/25/18at 19:22; Start 06/24/18 at 21:00; Stop 06/26/18 at 19:00 Fluvoxamine Maleate (Luvox) 50 mg QHS PO ; Start 06/26/18 at 21:00 Quetiapine Fumarate (SEROquel) 25 mg DAILY@1900 PO Last administered on at 19:24; Start 06/24/18 at 19:00 Quetiapine Fumarate (SEROquel) 25 mg BID@0900,1500 PO Last administered on 06/25at 15:02; Start 06/25/18 at 09:00 Active Scripts Active Reported Tamsulosin Hcl 0.4 Mg Cap.er.24h 0.4 Mg PO DAILY Levothyroxine Sodium 88 Mcg Tablet 88 Mcg PO DAILYAC Escitalopram Oxalate 20 Mg Tablet 20 Mg PO DAILY Rivastigmine (Rivastigmine Tartrate) 1.5 Mg Capsule 1.5 Mg PO BID Namenda Xr (Memantine Hcl) 28 Mg Cap.spr.24 28 Mg PO DAILY I have reviewed the current psychotropics carefully including drug interactions. Risk benefit ratio favors no change other than as noted in my dictated progress note. Diagnosis: Problems: (1) Mental status alteration (2) Anxiety disorder (3) Dementia in Alzheimer's disease with delusions (4) Dementia in Alzheimer's disease with depression (5) Dementia, vascular, with delusions (6) Dementia, vascular, with depression (7) Impulse control disorder MILAN TAYLOR MD Jun 25, 2018 22:54
[2018-06-26] MEDS: LEVOTHYROXINE 88 MCG TABLET PO SCH (05:02)
[2018-06-26] MEDS: MAGNESIUM HYDROXIDE 2,400 MG/30 ML ORAL.SUSP. PO PRN (05:23)
[2018-06-26 05:31] VITALS: BP 156/71
[2018-06-26] MEDS: MEMANTINE 10 MG TABLET. PO SCH ×2 (07:41→19:29)
[2018-06-26] MEDS: RIVASTIGMINE 3 MG CAPSULE. PO SCH ×2 (07:41→19:27)
[2018-06-26] MEDS: QUEtiapine 25 MG TABLET. PO SCH ×3 (07:41→17:27)
[2018-06-26] MEDS: TAMSULOSIN 0.4 MG CAP.ER.24H. PO SCH (07:41)
[2018-06-26] MEDS: NYSTATIN TOPICAL POWDER 15GM BOTTLE. TP SCH ×2 (07:42→19:30)
[2018-06-26 14:59] VITALS: BP 98/69
[2018-06-26] MEDS: MIRTAZAPINE 15 MG TABLET PO SCH (19:27)
--- NOTE | 2018-06-26 21:25 | PN ---
DATE: 06/26/2018 SUBJECTIVE: The patient was seen today, met with the staff, chart reviewed. Staff reports increasing confusion, cognitive deficits. Recent urinary tract infection, unsteady gait, but no falls. The patient also restless increased agitation at times. OBSERVATION: VITAL SIGNS: Temperature 98.3, blood pressure 156/71, pulse 81, respirations 22, O2 sat 95%. Slept about 10 hours last night. The patient's appetite is fair. MEDICATIONS: Reviewed. Currently on Luvox 50 mg at night, Seroquel 25 mg twice a day, also Luvox 25 mg at night, Exelon 3 mg twice a day, Seroquel 25 mg daily, mirtazapine 15 mg at night, Namenda 10 mg b.i.d. He is also on trazodone 25 mg at night p.r.n. for sleep. Also, olanzapine 2.5 mg q. 2 hours p.r.n. for agitation. The patient is not having any side effects from the medications. ASSESSMENT: Dementia, most likely Alzheimer's with delusions, depression. PLAN: To continue with the current treatment. LAURA GONZALEZ MD DR: KENJI/alfredo JOB#: [id number] / [id number]
[2018-06-27 06:12] VITALS: BP 147/70
[2018-06-27] MEDS: LEVOTHYROXINE 88 MCG TABLET PO SCH (06:24)
[2018-06-27] MEDS: TAMSULOSIN 0.4 MG CAP.ER.24H. PO SCH (07:32)
[2018-06-27] MEDS: NYSTATIN TOPICAL POWDER 15GM BOTTLE. TP SCH ×2 (07:32→19:27)
[2018-06-27] MEDS: MEMANTINE 10 MG TABLET. PO SCH ×2 (07:32→19:24)
[2018-06-27] MEDS: RIVASTIGMINE 3 MG CAPSULE. PO SCH ×2 (07:32→19:24)
[2018-06-27] MEDS: QUEtiapine 25 MG TABLET. PO SCH ×3 (07:32→18:22)
[2018-06-27] MEDS ORDERED: RIVASTIGMINE 3 MG CAPSULE. PO SCH (09:00)
[2018-06-27] MEDS ORDERED: BISACODYL 10 MG SUPP.RECT PR PRN (10:30)
[2018-06-27 15:43] VITALS: BP 121/66
[2018-06-27] MEDS: MIRTAZAPINE 15 MG TABLET PO SCH (19:24)
[2018-06-28] MEDS: LEVOTHYROXINE 88 MCG TABLET PO SCH (05:51)
[2018-06-28 06:00] VITALS: BP 126/61
[2018-06-28] MEDS: RIVASTIGMINE 3 MG CAPSULE. PO SCH ×2 (08:17→19:26)
[2018-06-28] MEDS: TAMSULOSIN 0.4 MG CAP.ER.24H. PO SCH (08:18)
[2018-06-28] MEDS: NYSTATIN TOPICAL POWDER 15GM BOTTLE. TP SCH ×2 (08:18→19:30)
[2018-06-28] MEDS: QUEtiapine 25 MG TABLET. PO SCH ×3 (08:18→19:28)
[2018-06-28] MEDS: MEMANTINE 10 MG TABLET. PO SCH ×2 (08:18→19:26)
--- NOTE | 2018-06-28 12:47 | PN ---
DATE: 06/28/2018 SUBJECTIVE: The patient was seen today, met with the staff, chart reviewed. The patient is still confused, having difficulty organizing his thinking, not able to hold a conversation. Most of the answers are monosyllabic. The patient apparently not presented with any major behavior problems. OBSERVATION: VITAL SIGNS: Temperature 97.3, blood pressure 126/61, pulse 61, respirations 20, O2 sat 97%. Slept about 4 hours last night. CURRENT MEDICATIONS: The patient's current medications include Seroquel, Luvox, Exelon, mirtazapine and Namenda. The patient is also p.r.n. trazodone and olanzapine. The patient is not exhibiting any side effects from the medications. Repeat patient's lab reviewed. ASSESSMENT: Dementia, most likely Alzheimer's with delusions and depression. PLAN: To continue with the treatment. LAURA GONZALEZ MD DR: KENJI/alfredo JOB#: [id number] / [id number]
[2018-06-28] MEDS: ACETAMINOPHEN 325 MG TABLET PO PRN (13:28)
[2018-06-28 15:56] VITALS: BP 106/62
[2018-06-28] MEDS: MIRTAZAPINE 15 MG TABLET PO SCH (19:27)
[2018-06-29] MEDS: LEVOTHYROXINE 88 MCG TABLET PO SCH (06:14)
[2018-06-29 06:22] VITALS: BP 157/68
[2018-06-29] MEDS: TAMSULOSIN 0.4 MG CAP.ER.24H. PO SCH (11:11)
[2018-06-29] MEDS: RIVASTIGMINE 3 MG CAPSULE. PO SCH ×2 (11:11→19:52)
[2018-06-29] MEDS: MEMANTINE 10 MG TABLET. PO SCH ×2 (11:11→19:52)
[2018-06-29] MEDS: QUEtiapine 25 MG TABLET. PO SCH ×3 (11:11→18:08)
[2018-06-29] MEDS: NYSTATIN TOPICAL POWDER 15GM BOTTLE. TP SCH ×2 (11:11→19:52)
[2018-06-29 16:29] VITALS: BP 100/53
[2018-06-29] MEDS: MIRTAZAPINE 15 MG TABLET PO SCH (19:52)
[2018-06-30] MEDS: traZODone 50 MG TABLET. PO PRN ×2 (01:16→19:36)
[2018-06-30 05:48] VITALS: BP 134/64
[2018-06-30] MEDS: TAMSULOSIN 0.4 MG CAP.ER.24H. PO SCH (09:08)
[2018-06-30] MEDS: MEMANTINE 10 MG TABLET. PO SCH ×2 (09:08→19:37)
[2018-06-30] MEDS: LEVOTHYROXINE 88 MCG TABLET PO SCH (09:08)
[2018-06-30] MEDS: RIVASTIGMINE 3 MG CAPSULE. PO SCH ×2 (09:08→19:36)
[2018-06-30] MEDS: NYSTATIN TOPICAL POWDER 15GM BOTTLE. TP SCH ×2 (09:10→19:38)
[2018-06-30] MEDS: QUEtiapine 25 MG TABLET. PO SCH ×3 (09:10→18:35)
--- NOTE | 2018-06-30 09:14 | PDOC ---
Exam Note: Justin Note: Late entry for DOS 06/29/2018. Please also refer to the separate dictated note~ for this date of service dictated separately.~Patient seen individually. Discussed the patient with Nursing staff reviewed the chart.~Reviewed interim history and current functioning. Reviewed vital signs,~Labs/ Radiology~and current medications noted below. Continue current treatment with the changes noted in the dictated addendum note Assessment: Vital Signs: VS - Last 72 Hours, by Label Date Time Temp Pulse Resp B/P (MAP) Pulse Ox O2 Delivery O2 Flow Rate FiO2 06/30/18 05:48 97.3 74 14 134/64 (87) 100 06/29/18 16:29 97.9 82 18 100/53 (69) 98 06/29/18 06:22 98.5 60 14 157/68 (97) 90 06/28/18 15:56 97.9 69 20 106/62 (77) 97 06/28/18 06:00 97.3 61 20 126/61 (82) 97 06/27/18 15:43 97.4 66 20 121/66 (84) 96 Room Air Vital Signs Date Time Temp Pulse Resp B/P (MAP) Pulse Ox O2 Delivery O2 Flow Rate FiO2 06/30/18 05:48 97.3 74 14 134/64 (87) 100 06/27/18 15:43 Room Air I&O Intake and Output 06/30/18 07:01 Intake Total 300 ml Balance 300 ml Intake Oral 300 ml # Bowel Movements 1 Current Medications: Meds: Current Medications Lorazepam (Ativan) 2 mg 1X ONCE PO Last administered on 06/17/18at 19:54; Start 06/17/18 at 20:15; Stop 06/17/18 at 20:16; Status DC Acetaminophen (Tylenol) 650 mg PRN Q6HRS PRN PO PAIN / TEMP Last administered on 06/28/18at 13:28; Start 06/17/18 at 21:30 Multi-Ingredient Ointment (Analgesic [place]) 1 alan PRN QID PRN TP MUSCLE PAIN Last administered on 06/24/18at 13:11; Start 06/17/18 at 21:30 Al Hydroxide/Mg Hydroxide (Mylanta Plus Xs) 15 ml PRN AFTMEALHC PRN PO DYSPEPSIA; Start 06/17/18 at 21:30 Magnesium Hydroxide (Milk Of Magnesia) 2,400 mg PRN QHS PRN PO CONSTIPATION Last administered on 06/26/18 05:23; Start 06/17/18 at 21:30 Trazodone HCl (Desyrel) 25 mg PRN QHS PRN PO INSOMNIA Last administered on 06/30 01:16; Start 06/17/18 at 21:30 Olanzapine (ZyPREXA ZYDIS) 2.5 mg PRN Q2HR PRN PO PSYCHOSIS Last administered on 06/30/18 08:20; Start 06/17/18 at 21:30 Citalopram Hydrobromide (CeleXA) 40 mg DAILY PO Last administered on 06/19/18 08:09; Start 06/18/18 at 09:00; Stop 06/19/18 at 16:58; Status DC Memantine (Namenda) 10 mg BID PO Last administered on 06/30/18 09:08; Start at 09:00 Rivastigmine Tartrate (Exelon) 1.5 mg BIDWMEALS PO Last administered on 07:47; Start 06/18/18 at 08:00; Stop 06/23/18 at 16:38; Status DC Levothyroxine Sodium (Synthroid) 88 mcg DAILYAC PO Last administered on 08:11; Start 06/18/18 at 07:30; Stop 06/19/18 at 17:40; Status DC Tamsulosin HCl (Flomax) 0.4 mg DAILY PO Last administered on 06/30/18 09:08; Start 06/18/18 at 09:00 Hydroxyzine HCl (Atarax) 25 mg PRN Q2HR PRN PO ANXIETY / AGITATION Last administered on 06/21/18 18:40; Start 06/18/18 at 23:00; Stop 06/21/18 at 20:10; Status DC Carbamide Peroxide (Debrox) 5 drop BID AU Last administered on 06/24/18 11:00; Start 06/19/18 at 21:00; Stop 06/24/18 at 20:59; Status DC Mirtazapine (Remeron) 7.5 mg QHS PO Last administered on 06/22/18 19:17; Start 06/19/18 at 21:00; Stop 06/23/18 at 18:12; Status DC Sertraline HCl (Zoloft) 50 mg DAILY PO Last administered on 06/24/18at 10:56; Start 06/20/18 at 09:00; Stop 06/24/18 at 18:42; Status DC Quetiapine Fumarate (SEROquel) 12.5 mg 0900,1700 PO Last administered on at 16:23; Start 06/19/18 at 17:00; Stop 06/22/18 at 16:55; Status DC Levothyroxine Sodium (Synthroid) 88 mcg DAILY06 PO Last administered on at 09:08; Start 06/20/18 at 06:00 Quetiapine Fumarate (SEROquel) 12.5 mg BID92 PO ; Start 06/23/18 at 09:00; Stop 06/23/18 at 09:00; Status DC Quetiapine Fumarate (SEROquel) 25 mg DAILY@1900 PO ; Start 06/22/18 at 19:00; Stop 06/22/18 at 19:00; Status DC Quetiapine Fumarate (SEROquel) 12.5 mg BID@0900,1500 PO Last administered on 06/24/18at 16:33; Start 06/23/18 at 09:00; Stop 06/24/18 at 18:46; Status DC Quetiapine Fumarate (SEROquel) 25 mg STK-MED ONCE .ROUTE ; Start 06/22/18 at 17: 12; Stop 06/22/18 at 17:14; Status DC Quetiapine Fumarate (SEROquel) 12.5 mg DAILY@1900 PO Last administered on at 18:16; Start 06/22/18 at 19:00; Stop 06/24/18 at 18:46; Status DC Rivastigmine Tartrate (Exelon) 1.5 mg DAILY PO Last administered on 06/24/18at 10 :58; Start 06/24/18 at 09:00; Stop 06/24/18 at 14:14; Status DC Rivastigmine Tartrate (Exelon) 3 mg HS PO ; Start 06/23/18 at 21:00; Stop at 21:00; Status DC Rivastigmine Tartrate (Exelon) 3 mg BIDWMEALS PO Last administered on 06/24/18at 10:54; Start 06/23/18 at 17:00; Stop 06/24/18 at 14:14; Status DC Rivastigmine Tartrate (Exelon) 3 mg HS PO ; Start 06/27/18 at 09:00; Stop at 09:00; Status DC Nystatin (Nystop) 1 alan BID TP Last administered on 06/30/18at 09:10; Start 06/23 at 21:00 Mirtazapine (Remeron) 15 mg QHS PO Last administered on 06/29/18at 19:52; Start 06/23/18 at 21:00 Nystatin (Nystop) 15 alan STK-MED ONCE TP Last administered on 06/23/18at 19:15; Start 06/23/18 at 19:15; Stop 06/23/18 at 19:17; Status DC Rivastigmine Tartrate (Exelon) 3 mg BID PO Last administered on 06/30/18at 09:08 ; Start 06/24/18 at 21:00 Fluvoxamine Maleate (Luvox) 25 mg QHS PO Last administered on 06/25/18at 19:22; Start 06/24/18 at 21:00; Stop 06/26/18 at 19:00; Status DC Fluvoxamine Maleate (Luvox) 50 mg QHS PO Last administered on 06/29/18at 19:52; Start 06/26/18 at 21:00; Stop 07/01/18 at 20:00 Quetiapine Fumarate (SEROquel) 25 mg DAILY@1900 PO Last administered on at 18:08; Start 06/24/18 at 19:00 Quetiapine Fumarate (SEROquel) 25 mg BID@0900,1500 PO Last administered on 06/30at 09:10; Start 06/25/18 at 09:00 Bisacodyl (Dulcolax Supp) 10 mg PRN DAILY PRN [place] CONSTIPATION Last administered on 06/27/18at 11:54; Start 06/27/18 at 10:30 Fluvoxamine Maleate (Luvox) 75 mg QHS PO ; Start 07/01/18 at 21:00 Active Scripts Active Reported Tamsulosin Hcl 0.4 Mg Cap.er.24h 0.4 Mg PO DAILY Levothyroxine Sodium 88 Mcg Tablet 88 Mcg PO DAILYAC Escitalopram Oxalate 20 Mg Tablet 20 Mg PO DAILY Rivastigmine (Rivastigmine Tartrate) 1.5 Mg Capsule 1.5 Mg PO BID Namenda Xr (Memantine Hcl) 28 Mg Cap.spr.24 28 Mg PO DAILY I have reviewed the current psychotropics carefully including drug interactions. Risk benefit ratio favors no change other than as noted in my dictated progress note. Diagnosis: Problems: (1) Mental status alteration (2) Anxiety disorder (3) Dementia in Alzheimer's disease with delusions (4) Dementia in Alzheimer's disease with depression (5) Dementia, vascular, with delusions (6) Dementia, vascular, with depression (7) Impulse control disorder MILAN TAYLOR MD Jun 30, 2018 09:14
[2018-06-30 17:15] VITALS: BP 131/74
[2018-06-30] MEDS: DIVALPROEX 125 MG CAP.SPRINK PO SCH (18:07)
[2018-06-30] MEDS: MIRTAZAPINE 15 MG TABLET PO SCH (19:37)
--- NOTE | 2018-06-30 20:49 | PN ---
DATE: 06/29/2018 PSYCHIATRIC PROGRESS NOTE This late entry 06/29/2018 covers elements not covered in my initial note. SUBJECTIVE: I met with the patient in the evening. The patient slept 6-1/4 hours previous night. He takes his medications whole. In the morning, he was somewhat agitated; later, he was better and then once again was less compliant, much later in the afternoon. He has been sexually inappropriate in his comments to nursing staff. REVIEW OF SYSTEMS: No CV, , pulmonary, eye, ENT system symptoms on review. Reliability poor. MENTAL STATUS EXAM: Oriented to himself. Insight, judgment, recent and remote memory, attention, concentration, fund of knowledge poor, consistent with his diagnosis. IMPRESSION: Major neurocognitive disorder, Alzheimer, vascular with delusion, depression, behavioral disturbance. Rest unchanged. PLAN: No change from initial note and if agitation persists, we may add low dose Depakote Sprinkles for mood stabilization. He seems to be ambulating a little better. MAN Connie TAYLOR MD DR: NATAN/alfredo JOB#: [id number] / [id number]
--- NOTE | 2018-06-30 22:41 | PDOC ---
Exam Note: Justin Note: Please also refer to the separate dictated note~for this date of service dictated separately.~Patient seen individually. Discussed the patient with Nursing staff reviewed the chart.~Reviewed interim history and current functioning. Reviewed vital signs,~Labs/ Radiology~and current medications noted below. Continue current treatment with the changes noted in the dictated addendum note Assessment: Vital Signs: Vital Signs Date Time Temp Pulse Resp B/P (MAP) Pulse Ox O2 Delivery O2 Flow Rate FiO2 06/30/18 17:15 98.1 64 20 131/74 (93) 96 06/27/18 15:43 Room Air I&O Intake and Output 06/30/18 07:01 Intake Total 300 ml Balance 300 ml Intake Oral 300 ml # Bowel Movements 1 Current Medications: Meds: Current Medications Lorazepam (Ativan) 2 mg 1X ONCE PO Last administered on 06/17/18 19:54; Start 06/17/18 at 20:15; Stop 06/17/18 at 20:16; Status DC Acetaminophen (Tylenol) 650 mg PRN Q6HRS PRN PO PAIN / TEMP Last administered on 06/28/18 13:28; Start 06/17/18 at 21:30 Multi-Ingredient Ointment (Analgesic [place]) 1 alan PRN QID PRN TP MUSCLE PAIN Last administered on 06/24/18 13:11; Start 06/17/18 at 21:30 Al Hydroxide/Mg Hydroxide (Mylanta Plus Xs) 15 ml PRN AFTMEALHC PRN PO DYSPEPSIA; Start 06/17/18 at 21:30 Magnesium Hydroxide (Milk Of Magnesia) 2,400 mg PRN QHS PRN PO CONSTIPATION Last administered on 06/26/18 05:23; Start 06/17/18 at 21:30 Trazodone HCl (Desyrel) 25 mg PRN QHS PRN PO INSOMNIA Last administered on 06/30 19:36; Start 06/17/18 at 21:30 Olanzapine (ZyPREXA ZYDIS) 2.5 mg PRN Q2HR PRN PO PSYCHOSIS Last administered on 06/30/18 18:07; Start 06/17/18 at 21:30 Citalopram Hydrobromide (CeleXA) 40 mg DAILY PO Last administered on 06/19/18 08:09; Start 06/18/18 at 09:00; Stop 06/19/18 at 16:58; Status DC Memantine (Namenda) 10 mg BID PO Last administered on 06/30/18at 19:37; Start at 09:00 Rivastigmine Tartrate (Exelon) 1.5 mg BIDWMEALS PO Last administered on 07:47; Start 06/18/18 at 08:00; Stop 06/23/18 at 16:38; Status DC Levothyroxine Sodium (Synthroid) 88 mcg DAILYAC PO Last administered on 08:11; Start 06/18/18 at 07:30; Stop 06/19/18 at 17:40; Status DC Tamsulosin HCl (Flomax) 0.4 mg DAILY PO Last administered on 06/30/18 09:08; Start 06/18/18 at 09:00 Hydroxyzine HCl (Atarax) 25 mg PRN Q2HR PRN PO ANXIETY / AGITATION Last administered on 06/21/18at 18:40; Start 06/18/18 at 23:00; Stop 06/21/18 at 20:10; Status DC Carbamide Peroxide (Debrox) 5 drop BID AU Last administered on 06/24/18 11:00; Start 06/19/18 at 21:00; Stop 06/24/18 at 20:59; Status DC Mirtazapine (Remeron) 7.5 mg QHS PO Last administered on 06/22/18 19:17; Start 06/19/18 at 21:00; Stop 06/23/18 at 18:12; Status DC Sertraline HCl (Zoloft) 50 mg DAILY PO Last administered on 06/24/18 10:56; Start 06/20/18 at 09:00; Stop 06/24/18 at 18:42; Status DC Quetiapine Fumarate (SEROquel) 12.5 mg 0900,1700 PO Last administered on 16:23; Start 06/19/18 at 17:00; Stop 06/22/18 at 16:55; Status DC Levothyroxine Sodium (Synthroid) 88 mcg DAILY06 PO Last administered on at 09:08; Start 06/20/18 at 06:00 Quetiapine Fumarate (SEROquel) 12.5 mg BID92 PO ; Start 06/23/18 at 09:00; Stop 06/23/18 at 09:00; Status DC Quetiapine Fumarate (SEROquel) 25 mg DAILY@1900 PO ; Start 06/22/18 at 19:00; Stop 06/22/18 at 19:00; Status DC Quetiapine Fumarate (SEROquel) 12.5 mg BID@0900,1500 PO Last administered on 06/24/18at 16:33; Start 06/23/18 at 09:00; Stop 06/24/18 at 18:46; Status DC Quetiapine Fumarate (SEROquel) 25 mg STK-MED ONCE .ROUTE ; Start 06/22/18 at 17: 12; Stop 06/22/18 at 17:14; Status DC Quetiapine Fumarate (SEROquel) 12.5 mg DAILY@1900 PO Last administered on at 18:16; Start 06/22/18 at 19:00; Stop 06/24/18 at 18:46; Status DC Rivastigmine Tartrate (Exelon) 1.5 mg DAILY PO Last administered on 06/24/18at 10 :58; Start 06/24/18 at 09:00; Stop 06/24/18 at 14:14; Status DC Rivastigmine Tartrate (Exelon) 3 mg HS PO ; Start 06/23/18 at 21:00; Stop at 21:00; Status DC Rivastigmine Tartrate (Exelon) 3 mg BIDWMEALS PO Last administered on 06/24/18at 10:54; Start 06/23/18 at 17:00; Stop 06/24/18 at 14:14; Status DC Rivastigmine Tartrate (Exelon) 3 mg HS PO ; Start 06/27/18 at 09:00; Stop at 09:00; Status DC Nystatin (Nystop) 1 alan BID TP Last administered on 06/30/18at 19:38; Start 06/23 at 21:00 Mirtazapine (Remeron) 15 mg QHS PO Last administered on 06/30/18at 19:37; Start 06/23/18 at 21:00 Nystatin (Nystop) 15 alan STK-MED ONCE TP Last administered on 06/23/18at 19:15; Start 06/23/18 at 19:15; Stop 06/23/18 at 19:17; Status DC Rivastigmine Tartrate (Exelon) 3 mg BID PO Last administered on 06/30/18at 19:36 ; Start 06/24/18 at 21:00 Fluvoxamine Maleate (Luvox) 25 mg QHS PO Last administered on 06/25/18at 19:22; Start 06/24/18 at 21:00; Stop 06/26/18 at 19:00; Status DC Fluvoxamine Maleate (Luvox) 50 mg QHS PO Last administered on 06/30/18at 19:36; Start 06/26/18 at 21:00; Stop 07/01/18 at 20:00 Quetiapine Fumarate (SEROquel) 25 mg DAILY@1900 PO Last administered on at 18:08; Start 06/24/18 at 19:00 Quetiapine Fumarate (SEROquel) 25 mg BID@0900,1500 PO Last administered on 06/30at 15:26; Start 06/25/18 at 09:00 Bisacodyl (Dulcolax Supp) 10 mg PRN DAILY PRN [place] CONSTIPATION Last administered on 06/27/18at 11:54; Start 06/27/18 at 10:30 Fluvoxamine Maleate (Luvox) 75 mg QHS PO ; Start 07/01/18 at 21:00 Divalproex Sodium (Depakote Sprinkles) 125 mg BID@0900,1700 PO Last administered on 06/30/18at 18:07; Start 06/30/18 at 17:00 Active Scripts Active Reported Tamsulosin Hcl 0.4 Mg Cap.er.24h 0.4 Mg PO DAILY Levothyroxine Sodium 88 Mcg Tablet 88 Mcg PO DAILYAC Escitalopram Oxalate 20 Mg Tablet 20 Mg PO DAILY Rivastigmine (Rivastigmine Tartrate) 1.5 Mg Capsule 1.5 Mg PO BID Namenda Xr (Memantine Hcl) 28 Mg Cap.spr.24 28 Mg PO DAILY I have reviewed the current psychotropics carefully including drug interactions. Risk benefit ratio favors no change other than as noted in my dictated progress note. Diagnosis: Problems: (1) Mental status alteration (2) Anxiety disorder (3) Dementia in Alzheimer's disease with delusions (4) Dementia in Alzheimer's disease with depression (5) Dementia, vascular, with delusions (6) Dementia, vascular, with depression (7) Impulse control disorder MILAN TAYLOR MD Jun 30, 2018 22:41
[2018-07-01] MEDS: LEVOTHYROXINE 88 MCG TABLET PO SCH (06:01)
[2018-07-01 06:05] VITALS: BP 125/76
[2018-07-01] MEDS: RIVASTIGMINE 3 MG CAPSULE. PO SCH ×2 (11:09→19:17)
[2018-07-01] MEDS: DIVALPROEX 125 MG CAP.SPRINK PO SCH ×2 (11:10→16:07)
[2018-07-01] MEDS: MEMANTINE 10 MG TABLET. PO SCH ×2 (11:10→19:17)
[2018-07-01] MEDS: TAMSULOSIN 0.4 MG CAP.ER.24H. PO SCH (11:10)
[2018-07-01] MEDS: QUEtiapine 25 MG TABLET. PO SCH ×3 (11:10→19:17)
[2018-07-01] MEDS: NYSTATIN TOPICAL POWDER 15GM BOTTLE. TP SCH ×2 (11:10→19:17)
[2018-07-01 15:50] VITALS: BP 117/73
[2018-07-01] MEDS: MIRTAZAPINE 15 MG TABLET PO SCH (19:17)
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
--- NOTE | 2018-07-01 22:37 | PDOC ---
Exam Note: Justin Note: Please also refer to the separate dictated note~for this date of service dictated separately.~Patient seen individually. Discussed the patient with Nursing staff reviewed the chart.~Reviewed interim history and current functioning. Reviewed vital signs,~Labs/ Radiology~and current medications noted below. Continue current treatment with the changes noted in the dictated addendum note Assessment: Vital Signs: Vital Signs Date Time Temp Pulse Resp B/P (MAP) Pulse Ox O2 Delivery O2 Flow Rate FiO2 07/01/18 15:50 98.5 68 20 117/73 (88) 94 06/27/18 15:43 Room Air I&O Intake and Output 07/01/18 07:01 Intake Total 240 ml Balance 240 ml Intake Oral 240 ml Current Medications: Meds: Current Medications Lorazepam (Ativan) 2 mg 1X ONCE PO Last administered on 06/17/18 19:54; Start 06/17/18 at 20:15; Stop 06/17/18 at 20:16; Status DC Acetaminophen (Tylenol) 650 mg PRN Q6HRS PRN PO PAIN / TEMP Last administered on 06/28/18 13:28; Start 06/17/18 at 21:30 Multi-Ingredient Ointment (Analgesic [place]) 1 alan PRN QID PRN TP MUSCLE PAIN Last administered on 06/24/18 13:11; Start 06/17/18 at 21:30 Al Hydroxide/Mg Hydroxide (Mylanta Plus Xs) 15 ml PRN AFTMEALHC PRN PO DYSPEPSIA; Start 06/17/18 at 21:30 Magnesium Hydroxide (Milk Of Magnesia) 2,400 mg PRN QHS PRN PO CONSTIPATION Last administered on 06/26/18 05:23; Start 06/17/18 at 21:30 Trazodone HCl (Desyrel) 25 mg PRN QHS PRN PO INSOMNIA Last administered on 06/30 19:36; Start 06/17/18 at 21:30 Olanzapine (ZyPREXA ZYDIS) 2.5 mg PRN Q2HR PRN PO PSYCHOSIS Last administered on 06/30/18 18:07; Start 06/17/18 at 21:30 Citalopram Hydrobromide (CeleXA) 40 mg DAILY PO Last administered on 06/19/18 08:09; Start 06/18/18 at 09:00; Stop 06/19/18 at 16:58; Status DC Memantine (Namenda) 10 mg BID PO Last administered on 07/01/18at 19:17; Start at 09:00 Rivastigmine Tartrate (Exelon) 1.5 mg BIDWMEALS PO Last administered on at 07:47; Start 06/18/18 at 08:00; Stop 06/23/18 at 16:38; Status DC Levothyroxine Sodium (Synthroid) 88 mcg DAILYAC PO Last administered on 08:11; Start 06/18/18 at 07:30; Stop 06/19/18 at 17:40; Status DC Tamsulosin HCl (Flomax) 0.4 mg DAILY PO Last administered on 07/01/18at 11:10; Start 06/18/18 at 09:00 Hydroxyzine HCl (Atarax) 25 mg PRN Q2HR PRN PO ANXIETY / AGITATION Last administered on 06/21/18at 18:40; Start 06/18/18 at 23:00; Stop 06/21/18 at 20:10; Status DC Carbamide Peroxide (Debrox) 5 drop BID AU Last administered on 06/24/18at 11:00; Start 06/19/18 at 21:00; Stop 06/24/18 at 20:59; Status DC Mirtazapine (Remeron) 7.5 mg QHS PO Last administered on 06/22/18 19:17; Start 06/19/18 at 21:00; Stop 06/23/18 at 18:12; Status DC Sertraline HCl (Zoloft) 50 mg DAILY PO Last administered on 06/24/18at 10:56; Start 06/20/18 at 09:00; Stop 06/24/18 at 18:42; Status DC Quetiapine Fumarate (SEROquel) 12.5 mg 0900,1700 PO Last administered on 16:23; Start 06/19/18 at 17:00; Stop 06/22/18 at 16:55; Status DC Levothyroxine Sodium (Synthroid) 88 mcg DAILY06 PO Last administered on at 06:01; Start 06/20/18 at 06:00 Quetiapine Fumarate (SEROquel) 12.5 mg BID92 PO ; Start 06/23/18 at 09:00; Stop 06/23/18 at 09:00; Status DC Quetiapine Fumarate (SEROquel) 25 mg DAILY@1900 PO ; Start 06/22/18 at 19:00; Stop 06/22/18 at 19:00; Status DC Quetiapine Fumarate (SEROquel) 12.5 mg BID@0900,1500 PO Last administered on 06/24/18at 16:33; Start 06/23/18 at 09:00; Stop 06/24/18 at 18:46; Status DC Quetiapine Fumarate (SEROquel) 25 mg STK-MED ONCE .ROUTE ; Start 06/22/18 at 17: 12; Stop 06/22/18 at 17:14; Status DC Quetiapine Fumarate (SEROquel) 12.5 mg DAILY@1900 PO Last administered on at 18:16; Start 06/22/18 at 19:00; Stop 06/24/18 at 18:46; Status DC Rivastigmine Tartrate (Exelon) 1.5 mg DAILY PO Last administered on 06/24/18at 10 :58; Start 06/24/18 at 09:00; Stop 06/24/18 at 14:14; Status DC Rivastigmine Tartrate (Exelon) 3 mg HS PO ; Start 06/23/18 at 21:00; Stop at 21:00; Status DC Rivastigmine Tartrate (Exelon) 3 mg BIDWMEALS PO Last administered on 06/24/18at 10:54; Start 06/23/18 at 17:00; Stop 06/24/18 at 14:14; Status DC Rivastigmine Tartrate (Exelon) 3 mg HS PO ; Start 06/27/18 at 09:00; Stop at 09:00; Status DC Nystatin (Nystop) 1 alan BID TP Last administered on 07/01/18at 19:17; Start 06/23 at 21:00 Mirtazapine (Remeron) 15 mg QHS PO Last administered on 07/01/18at 19:17; Start 06/23/18 at 21:00 Nystatin (Nystop) 15 alan STK-MED ONCE TP Last administered on 06/23/18at 19:15; Start 06/23/18 at 19:15; Stop 06/23/18 at 19:17; Status DC Rivastigmine Tartrate (Exelon) 3 mg BID PO Last administered on 07/01/18at 19:17 ; Start 06/24/18 at 21:00 Fluvoxamine Maleate (Luvox) 25 mg QHS PO Last administered on 06/25/18at 19:22; Start 06/24/18 at 21:00; Stop 06/26/18 at 19:00; Status DC Fluvoxamine Maleate (Luvox) 50 mg QHS PO Last administered on 06/30/18at 19:36; Start 06/26/18 at 21:00; Stop 07/01/18 at 20:00; Status DC Quetiapine Fumarate (SEROquel) 25 mg DAILY@1900 PO Last administered on at 19:17; Start 06/24/18 at 19:00 Quetiapine Fumarate (SEROquel) 25 mg BID@0900,1500 PO Last administered on 07/01at 16:07; Start 06/25/18 at 09:00 Bisacodyl (Dulcolax Supp) 10 mg PRN DAILY PRN [place] CONSTIPATION Last administered on 06/27/18at 11:54; Start 06/27/18 at 10:30 Fluvoxamine Maleate (Luvox) 75 mg QHS PO Last administered on 07/01/18at 19:16; Start 07/01/18 at 21:00 Divalproex Sodium (Depakote Sprinkles) 125 mg BID@0900,1700 PO Last administered on 07/01/18at 16:07; Start 06/30/18 at 17:00 Active Scripts Active Reported Tamsulosin Hcl 0.4 Mg Cap.er.24h 0.4 Mg PO DAILY Levothyroxine Sodium 88 Mcg Tablet 88 Mcg PO DAILYAC Escitalopram Oxalate 20 Mg Tablet 20 Mg PO DAILY Rivastigmine (Rivastigmine Tartrate) 1.5 Mg Capsule 1.5 Mg PO BID Namenda Xr (Memantine Hcl) 28 Mg Cap.spr.24 28 Mg PO DAILY I have reviewed the current psychotropics carefully including drug interactions. Risk benefit ratio favors no change other than as noted in my dictated progress note. Diagnosis: Problems: (1) Mental status alteration (2) Anxiety disorder (3) Dementia in Alzheimer's disease with delusions (4) Dementia in Alzheimer's disease with depression (5) Dementia, vascular, with delusions (6) Dementia, vascular, with depression (7) Impulse control disorder MILAN TAYLOR MD Jul 01, 2018 22:37
[2018-07-02 05:12] VITALS: BP 125/58
[2018-07-02] MEDS: LEVOTHYROXINE 88 MCG TABLET PO SCH (05:42)
[2018-07-02] MEDS: MEMANTINE 10 MG TABLET. PO SCH ×2 (08:00→19:17)
[2018-07-02] MEDS: DIVALPROEX 125 MG CAP.SPRINK PO SCH ×2 (08:00→16:30)
[2018-07-02] MEDS: QUEtiapine 25 MG TABLET. PO SCH ×3 (08:00→19:18)
[2018-07-02] MEDS: RIVASTIGMINE 3 MG CAPSULE. PO SCH ×2 (08:00→19:17)
[2018-07-02] MEDS: TAMSULOSIN 0.4 MG CAP.ER.24H. PO SCH (08:00)
[2018-07-02] MEDS: NYSTATIN TOPICAL POWDER 15GM BOTTLE. TP SCH ×2 (08:01→19:18)
[2018-07-02 15:50] VITALS: BP 111/75
[2018-07-02] MEDS: MIRTAZAPINE 15 MG TABLET PO SCH (19:18)
[2018-07-02] MEDS: traZODone 50 MG TABLET. PO PRN (22:41)
--- NOTE | 2018-07-02 23:11 | PDOC ---
Exam Note: Justin Note: Please also refer to the separate dictated note~for this date of service dictated separately.~Patient seen individually. Discussed the patient with Nursing staff reviewed the chart.~Reviewed interim history and current functioning. Reviewed vital signs,~Labs/ Radiology~and current medications noted below. Continue current treatment with the changes noted in the dictated addendum note Assessment: Vital Signs: Vital Signs Date Time Temp Pulse Resp B/P (MAP) Pulse Ox O2 Delivery O2 Flow Rate FiO2 07/02/18 15:50 98.0 72 19 111/75 (87) 93 Room Air I&O Intake and Output 07/02/18 07:01 Intake Total 720 ml Balance 720 ml Intake Oral 720 ml Current Medications: Meds: Current Medications Lorazepam (Ativan) 2 mg 1X ONCE PO Last administered on 06/17/18 19:54; Start 06/17/18 at 20:15; Stop 06/17/18 at 20:16; Status DC Acetaminophen (Tylenol) 650 mg PRN Q6HRS PRN PO PAIN / TEMP Last administered on 06/28/18at 13:28; Start 06/17/18 at 21:30 Multi-Ingredient Ointment (Analgesic [place]) 1 alan PRN QID PRN TP MUSCLE PAIN Last administered on 06/24/18 13:11; Start 06/17/18 at 21:30 Al Hydroxide/Mg Hydroxide (Mylanta Plus Xs) 15 ml PRN AFTMEALHC PRN PO DYSPEPSIA; Start 06/17/18 at 21:30 Magnesium Hydroxide (Milk Of Magnesia) 2,400 mg PRN QHS PRN PO CONSTIPATION Last administered on 06/26/18 05:23; Start 06/17/18 at 21:30 Trazodone HCl (Desyrel) 25 mg PRN QHS PRN PO INSOMNIA Last administered on 07/02 22:41; Start 06/17/18 at 21:30 Olanzapine (ZyPREXA ZYDIS) 2.5 mg PRN Q2HR PRN PO PSYCHOSIS Last administered on 06/30/18 18:07; Start 06/17/18 at 21:30 Citalopram Hydrobromide (CeleXA) 40 mg DAILY PO Last administered on 06/19/18 08:09; Start 06/18/18 at 09:00; Stop 06/19/18 at 16:58; Status DC Memantine (Namenda) 10 mg BID PO Last administered on 07/02/18at 19:17; Start at 09:00 Rivastigmine Tartrate (Exelon) 1.5 mg BIDWMEALS PO Last administered on at 07:47; Start 06/18/18 at 08:00; Stop 06/23/18 at 16:38; Status DC Levothyroxine Sodium (Synthroid) 88 mcg DAILYAC PO Last administered on at 08:11; Start 06/18/18 at 07:30; Stop 06/19/18 at 17:40; Status DC Tamsulosin HCl (Flomax) 0.4 mg DAILY PO Last administered on 07/02/18at 08:00; Start 06/18/18 at 09:00 Hydroxyzine HCl (Atarax) 25 mg PRN Q2HR PRN PO ANXIETY / AGITATION Last administered on 06/21/18at 18:40; Start 06/18/18 at 23:00; Stop 06/21/18 at 20:10; Status DC Carbamide Peroxide (Debrox) 5 drop BID AU Last administered on 06/24/18at 11:00; Start 06/19/18 at 21:00; Stop 06/24/18 at 20:59; Status DC Mirtazapine (Remeron) 7.5 mg QHS PO Last administered on 06/22/18at 19:17; Start 06/19/18 at 21:00; Stop 06/23/18 at 18:12; Status DC Sertraline HCl (Zoloft) 50 mg DAILY PO Last administered on 06/24/18at 10:56; Start 06/20/18 at 09:00; Stop 06/24/18 at 18:42; Status DC Quetiapine Fumarate (SEROquel) 12.5 mg 0900,1700 PO Last administered on at 16:23; Start 06/19/18 at 17:00; Stop 06/22/18 at 16:55; Status DC Levothyroxine Sodium (Synthroid) 88 mcg DAILY06 PO Last administered on at 05:42; Start 06/20/18 at 06:00 Quetiapine Fumarate (SEROquel) 12.5 mg BID92 PO ; Start 06/23/18 at 09:00; Stop 06/23/18 at 09:00; Status DC Quetiapine Fumarate (SEROquel) 25 mg DAILY@1900 PO ; Start 06/22/18 at 19:00; Stop 06/22/18 at 19:00; Status DC Quetiapine Fumarate (SEROquel) 12.5 mg BID@0900,1500 PO Last administered on 06/24/18at 16:33; Start 06/23/18 at 09:00; Stop 06/24/18 at 18:46; Status DC Quetiapine Fumarate (SEROquel) 25 mg STK-MED ONCE .ROUTE ; Start 06/22/18 at 17: 12; Stop 06/22/18 at 17:14; Status DC Quetiapine Fumarate (SEROquel) 12.5 mg DAILY@1900 PO Last administered on at 18:16; Start 06/22/18 at 19:00; Stop 06/24/18 at 18:46; Status DC Rivastigmine Tartrate (Exelon) 1.5 mg DAILY PO Last administered on 06/24/18at 10 :58; Start 06/24/18 at 09:00; Stop 06/24/18 at 14:14; Status DC Rivastigmine Tartrate (Exelon) 3 mg HS PO ; Start 06/23/18 at 21:00; Stop at 21:00; Status DC Rivastigmine Tartrate (Exelon) 3 mg BIDWMEALS PO Last administered on 06/24/18at 10:54; Start 06/23/18 at 17:00; Stop 06/24/18 at 14:14; Status DC Rivastigmine Tartrate (Exelon) 3 mg HS PO ; Start 06/27/18 at 09:00; Stop at 09:00; Status DC Nystatin (Nystop) 1 alan BID TP Last administered on 07/02/18at 19:18; Start 06/23 at 21:00 Mirtazapine (Remeron) 15 mg QHS PO Last administered on 07/02/18at 19:18; Start 06/23/18 at 21:00 Nystatin (Nystop) 15 alan STK-MED ONCE TP Last administered on 06/23/18at 19:15; Start 06/23/18 at 19:15; Stop 06/23/18 at 19:17; Status DC Rivastigmine Tartrate (Exelon) 3 mg BID PO Last administered on 07/02/18at 19:17 ; Start 06/24/18 at 21:00 Fluvoxamine Maleate (Luvox) 25 mg QHS PO Last administered on 06/25/18at 19:22; Start 06/24/18 at 21:00; Stop 06/26/18 at 19:00; Status DC Fluvoxamine Maleate (Luvox) 50 mg QHS PO Last administered on 06/30/18at 19:36; Start 06/26/18 at 21:00; Stop 07/01/18 at 20:00; Status DC Quetiapine Fumarate (SEROquel) 25 mg DAILY@1900 PO Last administered on at 19:18; Start 06/24/18 at 19:00 Quetiapine Fumarate (SEROquel) 25 mg BID@0900,1500 PO Last administered on 07/02at 16:29; Start 06/25/18 at 09:00 Bisacodyl (Dulcolax Supp) 10 mg PRN DAILY PRN [place] CONSTIPATION Last administered on 06/27/18at 11:54; Start 06/27/18 at 10:30 Fluvoxamine Maleate (Luvox) 75 mg QHS PO Last administered on 07/02/18at 19:17; Start 07/01/18 at 21:00 Divalproex Sodium (Depakote Sprinkles) 125 mg BID@0900,1700 PO Last administered on 07/02/18at 16:30; Start 06/30/18 at 17:00 Active Scripts Active Reported Tamsulosin Hcl 0.4 Mg Cap.er.24h 0.4 Mg PO DAILY Levothyroxine Sodium 88 Mcg Tablet 88 Mcg PO DAILYAC Escitalopram Oxalate 20 Mg Tablet 20 Mg PO DAILY Rivastigmine (Rivastigmine Tartrate) 1.5 Mg Capsule 1.5 Mg PO BID Namenda Xr (Memantine Hcl) 28 Mg Cap.spr.24 28 Mg PO DAILY I have reviewed the current psychotropics carefully including drug interactions. Risk benefit ratio favors no change other than as noted in my dictated progress note. Diagnosis: Problems: (1) Mental status alteration (2) Anxiety disorder (3) Dementia in Alzheimer's disease with delusions (4) Dementia in Alzheimer's disease with depression (5) Dementia, vascular, with delusions (6) Dementia, vascular, with depression (7) Impulse control disorder MILAN TAYLOR MD Jul 02, 2018 23:11
--- NOTE | 2018-07-03 00:12 | PN ---
DATE: 07/01/2018 PSYCHIATRIC PROGRESS NOTE This late entry 07/01/2018 covers elements not covered in my initial note. SUBJECTIVE: I met with the patient in the evening. Overall, the patient has had a better day, per nursing report. He slept 6-1/2 hours previous night. He was asking if his mother and father were coming for lunch and nursing staff told him no, but his was coming. He was resistive to taking his medications earlier. Slept until about 11:00 a.m. REVIEW OF SYSTEMS: No CV, , pulmonary, eye, ENT system symptoms on review. Reliability is poor. MENTAL STATUS EXAM: Oriented to himself. Insight, judgment, recent and remote memory, attention, concentration, fund of knowledge is poor, consistent with his diagnoses. LABORATORY DATA: Reviewed. IMPRESSION: Major neurocognitive disorder, Alzheimer, vascular with delusion, depression, behavioral disturbance; anxiety disorder, unspecified. Rest unchanged. PLAN: Continue current psychotropics. Adjust the Depakote gradually. Rest unchanged per initial note. MAN Connie TAYLOR MD DR: NATAN/alfredo JOB#: [id number] / [id number]
[2018-07-03 05:39] VITALS: BP 117/75
[2018-07-03] MEDS: LEVOTHYROXINE 88 MCG TABLET PO SCH ×2 (05:56→07:58)
[2018-07-03 07:41] LABS: BASO # 0.1 x10^3/uL (0.0-0.2); BASO % 1 % (0-3); EOS # 0.4 x10^3/uL (0.0-0.7); EOS % 6 % (0-3); HEMATOCRIT 37.8 % (39.0-53.0); HEMOGLOBIN 13.1 g/dL (13.0-17.5); LYMPH # 2.1 x10^3/uL (1.0-4.8); LYMPH % 30 % (24-48); MEAN CORPUSCULAR HEMOGLOBIN 32 pg (25-35); MEAN CORPUSCULAR HGB CONC 35 g/dL (31-37); MEAN CORPUSCULAR VOLUME 92 fL (79-100); MONO # 0.9 x10^3/uL (0.0-1.1); MONO % 13 % (0-9); NEUT # 3.6 x10^3uL (1.8-7.7); NEUT % 51 % (31-73); PLATELET COUNT 287 x10^3/uL (140-400); RED BLOOD COUNT 4.13 x10^6/uL (4.30-5.70); RED CELL DISTRIBUTION WIDTH 13.6 % (11.5-14.5); WHITE BLOOD COUNT 7.1 x10^3/uL (4.0-11.0)
[2018-07-03 07:52] LABS: ALT (SGPT) 50 U/L (16-63); ANION GAP 9 (6-14); CALCIUM 8.6 mg/dL (8.5-10.1); CHLORIDE 106 mmol/L (98-107); CREATININE 1.2 mg/dL (0.7-1.3); GFR 58.6; POTASSIUM 4.2 mmol/L (3.5-5.1); SODIUM 142 mmol/L (136-145); TOTAL PROTEIN 7.8 g/dL (6.4-8.2)
[2018-07-03] MEDS: TAMSULOSIN 0.4 MG CAP.ER.24H. PO SCH (07:58)
[2018-07-03] MEDS: DIVALPROEX 125 MG CAP.SPRINK PO SCH ×2 (07:58→17:00)
[2018-07-03] MEDS: QUEtiapine 25 MG TABLET. PO SCH ×3 (07:58→17:57)
[2018-07-03] MEDS: RIVASTIGMINE 3 MG CAPSULE. PO SCH ×2 (07:58→19:27)
[2018-07-03] MEDS: MEMANTINE 10 MG TABLET. PO SCH ×2 (07:58→19:27)
[2018-07-03] MEDS: NYSTATIN TOPICAL POWDER 15GM BOTTLE. TP SCH ×2 (07:59→19:26)
[2018-07-03 08:14] LABS: ALBUMIN 2.7 g/dL (3.4-5.0); ALBUMIN/GLOBULIN RATIO 0.5 (1.0-1.7); ALK PHOS 94 U/L (46-116); AST (SGOT) 32 U/L (15-37); BLOOD UREA NITROGEN 27 mg/dL (8-26); BUN/CREATININE RATIO 23 (6-20); CARBON DIOXIDE 27 mmol/L (21-32); GLUCOSE 88 mg/dL (70-99); TOTAL BILIRUBIN 0.4 mg/dL (0.2-1.0)
[2018-07-03 08:19] LABS: VAL ACID 10 mcg/mL (50-100)
[2018-07-03 16:11] VITALS: BP 111/73
[2018-07-03] MEDS: MIRTAZAPINE 15 MG TABLET PO SCH (19:27)
--- NOTE | 2018-07-03 20:06 | PN ---
DATE: 07/02/2018 This late entry for 07/02/2018 covers elements not covered in my initial note. SUBJECTIVE: I met with the patient in the evening. The patient slept 6 hours previous night. Appetite 60%. The patient was staffed at a treatment team meeting with the entire team in the morning. The patient's was unavailable to attend even though we tried to contact her for this and she had initially agreed. He remains on one-on-one due to fall risk, calmer till bedtime then gets verbally agitated, restless. It took 1 person to shower him, which is quite an improvement. REVIEW OF SYSTEMS: No eye, ENT, CV, , pulmonary system symptoms on review. Reliability poor. MENTAL STATUS EXAM: Oriented to himself. Insight, judgment, recent and remote memory, attention, concentration, fund of knowledge poor, consistent with his diagnosis mentioned in my initial note. PLAN: No change from initial note. We will maintain Depakote, Exelon patch, Namenda, Luvox, Seroquel along with Remeron scheduled and trazodone p.r.n. for now. MILAN TAYLOR MD DR: NATAN/alfredo JOB#: [id number] / [id number]
[2018-07-03] MEDS: traZODone 50 MG TABLET. PO PRN (21:41)
--- NOTE | 2018-07-03 23:55 | PDOC ---
Exam Note: Justin Note: Please also refer to the separate dictated note~for this date of service dictated separately.~Patient seen individually. Discussed the patient with Nursing staff reviewed the chart.~Reviewed interim history and current functioning. Reviewed vital signs,~Labs/ Radiology~and current medications noted below. Continue current treatment with the changes noted in the dictated addendum note Assessment: Vital Signs: Vital Signs Date Time Temp Pulse Resp B/P (MAP) Pulse Ox O2 Delivery O2 Flow Rate FiO2 07/03/18 16:11 97.9 65 22 111/73 (86) 98 Room Air I&O Intake and Output 07/03/18 07:01 Intake Total 960 ml Balance 960 ml Intake Oral 960 ml Labs: Laboratory Tests Test 07/03/18 07:23 White Blood Count 7.1 x10^3/uL (4.0-11.0) Red Blood Count 4.13 x10^6/uL (4.30-5.70) L Hemoglobin 13.1 g/dL (13.0-17.5) Hematocrit 37.8 % (39.0-53.0) L Mean Corpuscular Volume 92 fL (79-100) Mean Corpuscular Hemoglobin 32 pg (25-35) Mean Corpuscular Hemoglobin Concent 35 g/dL (31-37) Red Cell Distribution Width 13.6 % (11.5-14.5) Platelet Count 287 x10^3/uL (140-400) Neutrophils (%) (Auto) 51 % (31-73) Lymphocytes (%) (Auto) 30 % (24-48) Monocytes (%) (Auto) 13 % (0-9) H Eosinophils (%) (Auto) 6 % (0-3) H Basophils (%) (Auto) 1 % (0-3) Neutrophils # (Auto) 3.6 x10^3uL (1.8-7.7) Lymphocytes # (Auto) 2.1 x10^3/uL (1.0-4.8) Monocytes # (Auto) 0.9 x10^3/uL (0.0-1.1) Eosinophils # (Auto) 0.4 x10^3/uL (0.0-0.7) Basophils # (Auto) 0.1 x10^3/uL (0.0-0.2) Sodium Level 142 mmol/L (136-145) Potassium Level 4.2 mmol/L (3.5-5.1) Chloride Level 106 mmol/L (98-107) Carbon Dioxide Level 27 mmol/L (21-32) Anion Gap 9 (6-14) Blood Urea Nitrogen 27 mg/dL (8-26) H Creatinine 1.2 mg/dL (0.7-1.3) Estimated GFR (Cockcroft-Gault) 58.6 BUN/Creatinine Ratio 23 (6-20) H Glucose Level 88 mg/dL (70-99) Calcium Level 8.6 mg/dL (8.5-10.1) Total Bilirubin 0.4 mg/dL (0.2-1.0) Aspartate Amino Transferase (AST) 32 U/L (15-37) Alanine Aminotransferase (ALT) 50 U/L (16-63) Alkaline Phosphatase 94 U/L (46-116) Total Protein 7.8 g/dL (6.4-8.2) Albumin 2.7 g/dL (3.4-5.0) L Albumin/Globulin Ratio 0.5 (1.0-1.7) L Valproic Acid Level 10 mcg/mL (50-100) L Valproic Acid Last Dose Date 07/02/2018 Valproic Acid Last Dose Time 1700 Current Medications: Meds: Current Medications Lorazepam (Ativan) 2 mg 1X ONCE PO Last administered on 06/17/18at 19:54; Start 06/17/18 at 20:15; Stop 06/17/18 at 20:16; Status DC Acetaminophen (Tylenol) 650 mg PRN Q6HRS PRN PO PAIN / TEMP Last administered on 06/28/18at 13:28; Start 06/17/18 at 21:30 Multi-Ingredient Ointment (Analgesic [place]) 1 alan PRN QID PRN TP MUSCLE PAIN Last administered on 06/24/18at 13:11; Start 06/17/18 at 21:30 Al Hydroxide/Mg Hydroxide (Mylanta Plus Xs) 15 ml PRN AFTMEALHC PRN PO DYSPEPSIA; Start 06/17/18 at 21:30 Magnesium Hydroxide (Milk Of Magnesia) 2,400 mg PRN QHS PRN PO CONSTIPATION Last administered on 06/26/18at 05:23; Start 06/17/18 at 21:30 Trazodone HCl (Desyrel) 25 mg PRN QHS PRN PO INSOMNIA Last administered on 07/03 21:41; Start 06/17/18 at 21:30 Olanzapine (ZyPREXA ZYDIS) 2.5 mg PRN Q2HR PRN PO PSYCHOSIS Last administered on 06/30/18 18:07; Start 06/17/18 at 21:30 Citalopram Hydrobromide (CeleXA) 40 mg DAILY PO Last administered on 06/19/18 08:09; Start 06/18/18 at 09:00; Stop 06/19/18 at 16:58; Status DC Memantine (Namenda) 10 mg BID PO Last administered on 07/03/18 19:27; Start at 09:00 Rivastigmine Tartrate (Exelon) 1.5 mg BIDWMEALS PO Last administered on 07:47; Start 06/18/18 at 08:00; Stop 06/23/18 at 16:38; Status DC Levothyroxine Sodium (Synthroid) 88 mcg DAILYAC PO Last administered on 08:11; Start 06/18/18 at 07:30; Stop 06/19/18 at 17:40; Status DC Tamsulosin HCl (Flomax) 0.4 mg DAILY PO Last administered on 07/03/18 07:58; Start 06/18/18 at 09:00 Hydroxyzine HCl (Atarax) 25 mg PRN Q2HR PRN PO ANXIETY / AGITATION Last administered on 06/21/18 18:40; Start 06/18/18 at 23:00; Stop 06/21/18 at 20:10; Status DC Carbamide Peroxide (Debrox) 5 drop BID AU Last administered on 06/24/18 11:00; Start 06/19/18 at 21:00; Stop 06/24/18 at 20:59; Status DC Mirtazapine (Remeron) 7.5 mg QHS PO Last administered on 06/22/18 19:17; Start 06/19/18 at 21:00; Stop 06/23/18 at 18:12; Status DC Sertraline HCl (Zoloft) 50 mg DAILY PO Last administered on 1/9/19at 10:56; Start 06/20/18 at 09:00; Stop 06/24/18 at 18:42; Status DC Quetiapine Fumarate (SEROquel) 12.5 mg 0900,1700 PO Last administered on at 16:23; Start 06/19/18 at 17:00; Stop 06/22/18 at 16:55; Status DC Levothyroxine Sodium (Synthroid) 88 mcg DAILY06 PO Last administered on at 07:58; Start 06/20/18 at 06:00 Quetiapine Fumarate (SEROquel) 12.5 mg BID92 PO ; Start 06/23/18 at 09:00; Stop 06/23/18 at 09:00; Status DC Quetiapine Fumarate (SEROquel) 25 mg DAILY@1900 PO ; Start 06/22/18 at 19:00; Stop 06/22/18 at 19:00; Status DC Quetiapine Fumarate (SEROquel) 12.5 mg BID@0900,1500 PO Last administered on 06/24/18at 16:33; Start 06/23/18 at 09:00; Stop 06/24/18 at 18:46; Status DC Quetiapine Fumarate (SEROquel) 25 mg STK-MED ONCE .ROUTE ; Start 06/22/18 at 17: 12; Stop 06/22/18 at 17:14; Status DC Quetiapine Fumarate (SEROquel) 12.5 mg DAILY@1900 PO Last administered on at 18:16; Start 06/22/18 at 19:00; Stop 06/24/18 at 18:46; Status DC Rivastigmine Tartrate (Exelon) 1.5 mg DAILY PO Last administered on 06/24/18at 10 :58; Start 06/24/18 at 09:00; Stop 06/24/18 at 14:14; Status DC Rivastigmine Tartrate (Exelon) 3 mg HS PO ; Start 06/23/18 at 21:00; Stop at 21:00; Status DC Rivastigmine Tartrate (Exelon) 3 mg BIDWMEALS PO Last administered on 06/24/18at 10:54; Start 06/23/18 at 17:00; Stop 06/24/18 at 14:14; Status DC Rivastigmine Tartrate (Exelon) 3 mg HS PO ; Start 06/27/18 at 09:00; Stop at 09:00; Status DC Nystatin (Nystop) 1 alan BID TP Last administered on 07/03/18at 19:26; Start 06/23 at 21:00 Mirtazapine (Remeron) 15 mg QHS PO Last administered on 07/03/18at 19:27; Start 06/23/18 at 21:00 Nystatin (Nystop) 15 alan STK-MED ONCE TP Last administered on 06/23/18at 19:15; Start 06/23/18 at 19:15; Stop 06/23/18 at 19:17; Status DC Rivastigmine Tartrate (Exelon) 3 mg BID PO Last administered on 07/03/18at 19:27 ; Start 06/24/18 at 21:00 Fluvoxamine Maleate (Luvox) 25 mg QHS PO Last administered on 06/25/18at 19:22; Start 06/24/18 at 21:00; Stop 06/26/18 at 19:00; Status DC Fluvoxamine Maleate (Luvox) 50 mg QHS PO Last administered on 06/30/18at 19:36; Start 06/26/18 at 21:00; Stop 07/01/18 at 20:00; Status DC Quetiapine Fumarate (SEROquel) 25 mg DAILY@1900 PO Last administered on at 17:57; Start 06/24/18 at 19:00 Quetiapine Fumarate (SEROquel) 25 mg BID@0900,1500 PO Last administered on 07/03at 15:39; Start 06/25/18 at 09:00 Bisacodyl (Dulcolax Supp) 10 mg PRN DAILY PRN [place] CONSTIPATION Last administered on 06/27/18at 11:54; Start 06/27/18 at 10:30 Fluvoxamine Maleate (Luvox) 75 mg QHS PO Last administered on 07/03/18at 19:27; Start 07/01/18 at 21:00 Divalproex Sodium (Depakote Sprinkles) 125 mg BID@0900,1700 PO Last administered on 07/03/18at 17:00; Start 06/30/18 at 17:00 Active Scripts Active Reported Tamsulosin Hcl 0.4 Mg Cap.er.24h 0.4 Mg PO DAILY Levothyroxine Sodium 88 Mcg Tablet 88 Mcg PO DAILYAC Escitalopram Oxalate 20 Mg Tablet 20 Mg PO DAILY Rivastigmine (Rivastigmine Tartrate) 1.5 Mg Capsule 1.5 Mg PO BID Namenda Xr (Memantine Hcl) 28 Mg Cap.spr.24 28 Mg PO DAILY I have reviewed the current psychotropics carefully including drug interactions. Risk benefit ratio favors no change other than as noted in my dictated progress note. Diagnosis: Problems: (1) Mental status alteration (2) Anxiety disorder (3) Dementia in Alzheimer's disease with delusions (4) Dementia in Alzheimer's disease with depression (5) Dementia, vascular, with delusions (6) Dementia, vascular, with depression (7) Impulse control disorder MILAN TAYLOR MD Jul 03, 2018 23:55
[2018-07-04 05:26] VITALS: BP 150/88
[2018-07-04] MEDS: LEVOTHYROXINE 88 MCG TABLET PO SCH (06:00)
[2018-07-04] MEDS: RIVASTIGMINE 3 MG CAPSULE. PO SCH ×2 (07:47→19:18)
[2018-07-04] MEDS: QUEtiapine 25 MG TABLET. PO SCH ×3 (07:47→18:03)
[2018-07-04] MEDS: NYSTATIN TOPICAL POWDER 15GM BOTTLE. TP SCH ×2 (07:47→19:18)
[2018-07-04] MEDS: TAMSULOSIN 0.4 MG CAP.ER.24H. PO SCH (07:47)
[2018-07-04] MEDS: DIVALPROEX 125 MG CAP.SPRINK PO SCH ×2 (07:47→17:00)
[2018-07-04] MEDS: MEMANTINE 10 MG TABLET. PO SCH ×2 (07:47→19:18)
[2018-07-04 15:30] VITALS: BP 114/60
[2018-07-04] MEDS: MIRTAZAPINE 15 MG TABLET PO SCH (19:18)
[2018-07-04] MEDS: MAGNESIUM HYDROXIDE 2,400 MG/30 ML ORAL.SUSP. PO PRN (19:26)
[2018-07-04] MEDS: traZODone 50 MG TABLET. PO PRN (22:14)
--- NOTE | 2018-07-04 23:58 | PDOC ---
Exam Note: Justin Note: Please also refer to the separate dictated note~for this date of service dictated separately.~Patient seen individually. Discussed the patient with Nursing staff reviewed the chart.~Reviewed interim history and current functioning. Reviewed vital signs,~Labs/ Radiology~and current medications noted below. Continue current treatment with the changes noted in the dictated addendum note Assessment: Vital Signs: Vital Signs Date Time Temp Pulse Resp B/P (MAP) Pulse Ox O2 Delivery O2 Flow Rate FiO2 07/04/18 15:30 98.0 72 20 114/60 (78) 99 07/03/18 16:11 Room Air I&O Intake and Output 07/04/18 07:01 Intake Total 725 ml Balance 725 ml Intake Oral 725 ml Current Medications: Meds: Current Medications Lorazepam (Ativan) 2 mg 1X ONCE PO Last administered on 06/17/18 19:54; Start 06/17/18 at 20:15; Stop 06/17/18 at 20:16; Status DC Acetaminophen (Tylenol) 650 mg PRN Q6HRS PRN PO PAIN / TEMP Last administered on 06/28/18at 13:28; Start 06/17/18 at 21:30 Multi-Ingredient Ointment (Analgesic [place]) 1 alan PRN QID PRN TP MUSCLE PAIN Last administered on 06/24/18 13:11; Start 06/17/18 at 21:30 Al Hydroxide/Mg Hydroxide (Mylanta Plus Xs) 15 ml PRN AFTMEALHC PRN PO DYSPEPSIA; Start 06/17/18 at 21:30 Magnesium Hydroxide (Milk Of Magnesia) 2,400 mg PRN QHS PRN PO CONSTIPATION Last administered on 07/04/18 19:26; Start 06/17/18 at 21:30 Trazodone HCl (Desyrel) 25 mg PRN QHS PRN PO INSOMNIA Last administered on 07/04 22:14; Start 06/17/18 at 21:30 Olanzapine (ZyPREXA ZYDIS) 2.5 mg PRN Q2HR PRN PO PSYCHOSIS Last administered on 07/04/18 22:14; Start 06/17/18 at 21:30 Citalopram Hydrobromide (CeleXA) 40 mg DAILY PO Last administered on 06/19/18 08:09; Start 06/18/18 at 09:00; Stop 06/19/18 at 16:58; Status DC Memantine (Namenda) 10 mg BID PO Last administered on 07/04/18at 19:18; Start at 09:00 Rivastigmine Tartrate (Exelon) 1.5 mg BIDWMEALS PO Last administered on at 07:47; Start 06/18/18 at 08:00; Stop 06/23/18 at 16:38; Status DC Levothyroxine Sodium (Synthroid) 88 mcg DAILYAC PO Last administered on 08:11; Start 06/18/18 at 07:30; Stop 06/19/18 at 17:40; Status DC Tamsulosin HCl (Flomax) 0.4 mg DAILY PO Last administered on 07/04/18at 07:47; Start 06/18/18 at 09:00 Hydroxyzine HCl (Atarax) 25 mg PRN Q2HR PRN PO ANXIETY / AGITATION Last administered on 06/21/18at 18:40; Start 06/18/18 at 23:00; Stop 06/21/18 at 20:10; Status DC Carbamide Peroxide (Debrox) 5 drop BID AU Last administered on 06/24/18at 11:00; Start 06/19/18 at 21:00; Stop 06/24/18 at 20:59; Status DC Mirtazapine (Remeron) 7.5 mg QHS PO Last administered on 06/22/18at 19:17; Start 06/19/18 at 21:00; Stop 06/23/18 at 18:12; Status DC Sertraline HCl (Zoloft) 50 mg DAILY PO Last administered on 06/24/18at 10:56; Start 06/20/18 at 09:00; Stop 06/24/18 at 18:42; Status DC Quetiapine Fumarate (SEROquel) 12.5 mg 0900,1700 PO Last administered on 16:23; Start 06/19/18 at 17:00; Stop 06/22/18 at 16:55; Status DC Levothyroxine Sodium (Synthroid) 88 mcg DAILY06 PO Last administered on at 06:00; Start 06/20/18 at 06:00 Quetiapine Fumarate (SEROquel) 12.5 mg BID92 PO ; Start 06/23/18 at 09:00; Stop 06/23/18 at 09:00; Status DC Quetiapine Fumarate (SEROquel) 25 mg DAILY@1900 PO ; Start 06/22/18 at 19:00; Stop 06/22/18 at 19:00; Status DC Quetiapine Fumarate (SEROquel) 12.5 mg BID@0900,1500 PO Last administered on 06/24/18at 16:33; Start 06/23/18 at 09:00; Stop 06/24/18 at 18:46; Status DC Quetiapine Fumarate (SEROquel) 25 mg STK-MED ONCE .ROUTE ; Start 06/22/18 at 17: 12; Stop 06/22/18 at 17:14; Status DC Quetiapine Fumarate (SEROquel) 12.5 mg DAILY@1900 PO Last administered on at 18:16; Start 06/22/18 at 19:00; Stop 06/24/18 at 18:46; Status DC Rivastigmine Tartrate (Exelon) 1.5 mg DAILY PO Last administered on 06/24/18at 10 :58; Start 06/24/18 at 09:00; Stop 06/24/18 at 14:14; Status DC Rivastigmine Tartrate (Exelon) 3 mg HS PO ; Start 06/23/18 at 21:00; Stop at 21:00; Status DC Rivastigmine Tartrate (Exelon) 3 mg BIDWMEALS PO Last administered on 06/24/18at 10:54; Start 06/23/18 at 17:00; Stop 06/24/18 at 14:14; Status DC Rivastigmine Tartrate (Exelon) 3 mg HS PO ; Start 06/27/18 at 09:00; Stop at 09:00; Status DC Nystatin (Nystop) 1 alan BID TP Last administered on 07/04/18at 19:18; Start 06/23 at 21:00 Mirtazapine (Remeron) 15 mg QHS PO Last administered on 07/04/18at 19:18; Start 06/23/18 at 21:00 Nystatin (Nystop) 15 alan STK-MED ONCE TP Last administered on 06/23/18at 19:15; Start 06/23/18 at 19:15; Stop 06/23/18 at 19:17; Status DC Rivastigmine Tartrate (Exelon) 3 mg BID PO Last administered on 07/04/18at 19:18 ; Start 06/24/18 at 21:00 Fluvoxamine Maleate (Luvox) 25 mg QHS PO Last administered on 06/25/18at 19:22; Start 06/24/18 at 21:00; Stop 06/26/18 at 19:00; Status DC Fluvoxamine Maleate (Luvox) 50 mg QHS PO Last administered on 06/30/18at 19:36; Start 06/26/18 at 21:00; Stop 07/01/18 at 20:00; Status DC Quetiapine Fumarate (SEROquel) 25 mg DAILY@1900 PO Last administered on at 18:03; Start 06/24/18 at 19:00 Quetiapine Fumarate (SEROquel) 25 mg BID@0900,1500 PO Last administered on 07/04at 15:00; Start 06/25/18 at 09:00 Bisacodyl (Dulcolax Supp) 10 mg PRN DAILY PRN [place] CONSTIPATION Last administered on 06/27/18at 11:54; Start 06/27/18 at 10:30 Fluvoxamine Maleate (Luvox) 75 mg QHS PO Last administered on 07/04/18at 19:18; Start 07/01/18 at 21:00 Divalproex Sodium (Depakote Sprinkles) 125 mg BID@0900,1700 PO Last administered on 07/04/18at 17:00; Start 06/30/18 at 17:00 Active Scripts Active Reported Tamsulosin Hcl 0.4 Mg Cap.er.24h 0.4 Mg PO DAILY Levothyroxine Sodium 88 Mcg Tablet 88 Mcg PO DAILYAC Escitalopram Oxalate 20 Mg Tablet 20 Mg PO DAILY Rivastigmine (Rivastigmine Tartrate) 1.5 Mg Capsule 1.5 Mg PO BID Namenda Xr (Memantine Hcl) 28 Mg Cap.spr.24 28 Mg PO DAILY I have reviewed the current psychotropics carefully including drug interactions. Risk benefit ratio favors no change other than as noted in my dictated progress note. Diagnosis: Problems: (1) Mental status alteration (2) Anxiety disorder (3) Dementia in Alzheimer's disease with delusions (4) Dementia in Alzheimer's disease with depression (5) Dementia, vascular, with delusions (6) Dementia, vascular, with depression (7) Impulse control disorder MILAN TAYLOR MD Jul 04, 2018 23:58
[2018-07-05] MEDS: LEVOTHYROXINE 88 MCG TABLET PO SCH (06:07)
[2018-07-05 06:20] VITALS: BP 122/73
[2018-07-05] MEDS: QUEtiapine 25 MG TABLET. PO SCH ×3 (11:08→19:27)
[2018-07-05] MEDS: MEMANTINE 10 MG TABLET. PO SCH ×2 (11:08→19:27)
[2018-07-05] MEDS: TAMSULOSIN 0.4 MG CAP.ER.24H. PO SCH (11:08)
[2018-07-05] MEDS: RIVASTIGMINE 3 MG CAPSULE. PO SCH ×2 (11:08→19:27)
[2018-07-05] MEDS: DIVALPROEX 125 MG CAP.SPRINK PO SCH ×2 (11:09→17:19)
[2018-07-05] MEDS: NYSTATIN TOPICAL POWDER 15GM BOTTLE. TP SCH ×2 (11:14→19:28)
[2018-07-05 15:38] VITALS: BP 112/60
[2018-07-05] MEDS: MIRTAZAPINE 15 MG TABLET PO SCH (19:28)
--- NOTE | 2018-07-05 22:30 | PDOC ---
Exam Note: Justin Note: Please also refer to the separate dictated note~for this date of service dictated separately.~Patient seen individually. Discussed the patient with Nursing staff reviewed the chart.~Reviewed interim history and current functioning. Reviewed vital signs,~Labs/ Radiology~and current medications noted below. Continue current treatment with the changes noted in the dictated addendum note Assessment: Vital Signs: Vital Signs Date Time Temp Pulse Resp B/P (MAP) Pulse Ox O2 Delivery O2 Flow Rate FiO2 07/05/18 15:38 98.6 68 19 112/60 (77) 95 07/03/18 16:11 Room Air I&O Intake and Output 07/05/18 07:01 Intake Total 1200 ml Balance 1200 ml Intake Oral 1200 ml # Voids 1 Current Medications: Meds: Current Medications Lorazepam (Ativan) 2 mg 1X ONCE PO Last administered on 06/17/18 19:54; Start 06/17/18 at 20:15; Stop 06/17/18 at 20:16; Status DC Acetaminophen (Tylenol) 650 mg PRN Q6HRS PRN PO PAIN / TEMP Last administered on 06/28/18at 13:28; Start 06/17/18 at 21:30 Multi-Ingredient Ointment (Analgesic [place]) 1 alan PRN QID PRN TP MUSCLE PAIN Last administered on 06/24/18 13:11; Start 06/17/18 at 21:30 Al Hydroxide/Mg Hydroxide (Mylanta Plus Xs) 15 ml PRN AFTMEALHC PRN PO DYSPEPSIA; Start 06/17/18 at 21:30 Magnesium Hydroxide (Milk Of Magnesia) 2,400 mg PRN QHS PRN PO CONSTIPATION Last administered on 07/04/18 19:26; Start 06/17/18 at 21:30 Trazodone HCl (Desyrel) 25 mg PRN QHS PRN PO INSOMNIA Last administered on 07/04 22:14; Start 06/17/18 at 21:30 Olanzapine (ZyPREXA ZYDIS) 2.5 mg PRN Q2HR PRN PO PSYCHOSIS Last administered on 07/05/18 14:10; Start 06/17/18 at 21:30 Citalopram Hydrobromide (CeleXA) 40 mg DAILY PO Last administered on 06/19/18 08:09; Start 06/18/18 at 09:00; Stop 06/19/18 at 16:58; Status DC Memantine (Namenda) 10 mg BID PO Last administered on 07/05/18at 19:27; Start at 09:00 Rivastigmine Tartrate (Exelon) 1.5 mg BIDWMEALS PO Last administered on at 07:47; Start 06/18/18 at 08:00; Stop 06/23/18 at 16:38; Status DC Levothyroxine Sodium (Synthroid) 88 mcg DAILYAC PO Last administered on 08:11; Start 06/18/18 at 07:30; Stop 06/19/18 at 17:40; Status DC Tamsulosin HCl (Flomax) 0.4 mg DAILY PO Last administered on 07/05/18at 11:08; Start 06/18/18 at 09:00 Hydroxyzine HCl (Atarax) 25 mg PRN Q2HR PRN PO ANXIETY / AGITATION Last administered on 06/21/18at 18:40; Start 06/18/18 at 23:00; Stop 06/21/18 at 20:10; Status DC Carbamide Peroxide (Debrox) 5 drop BID AU Last administered on 06/24/18 11:00; Start 06/19/18 at 21:00; Stop 06/24/18 at 20:59; Status DC Mirtazapine (Remeron) 7.5 mg QHS PO Last administered on 06/22/18 19:17; Start 06/19/18 at 21:00; Stop 06/23/18 at 18:12; Status DC Sertraline HCl (Zoloft) 50 mg DAILY PO Last administered on 06/24/18at 10:56; Start 06/20/18 at 09:00; Stop 06/24/18 at 18:42; Status DC Quetiapine Fumarate (SEROquel) 12.5 mg 0900,1700 PO Last administered on 16:23; Start 06/19/18 at 17:00; Stop 06/22/18 at 16:55; Status DC Levothyroxine Sodium (Synthroid) 88 mcg DAILY06 PO Last administered on at 06:07; Start 06/20/18 at 06:00 Quetiapine Fumarate (SEROquel) 12.5 mg BID92 PO ; Start 06/23/18 at 09:00; Stop 06/23/18 at 09:00; Status DC Quetiapine Fumarate (SEROquel) 25 mg DAILY@1900 PO ; Start 06/22/18 at 19:00; Stop 06/22/18 at 19:00; Status DC Quetiapine Fumarate (SEROquel) 12.5 mg BID@0900,1500 PO Last administered on 06/24/18at 16:33; Start 06/23/18 at 09:00; Stop 06/24/18 at 18:46; Status DC Quetiapine Fumarate (SEROquel) 25 mg STK-MED ONCE .ROUTE ; Start 06/22/18 at 17: 12; Stop 06/22/18 at 17:14; Status DC Quetiapine Fumarate (SEROquel) 12.5 mg DAILY@1900 PO Last administered on at 18:16; Start 06/22/18 at 19:00; Stop 06/24/18 at 18:46; Status DC Rivastigmine Tartrate (Exelon) 1.5 mg DAILY PO Last administered on 06/24/18at 10 :58; Start 06/24/18 at 09:00; Stop 06/24/18 at 14:14; Status DC Rivastigmine Tartrate (Exelon) 3 mg HS PO ; Start 06/23/18 at 21:00; Stop at 21:00; Status DC Rivastigmine Tartrate (Exelon) 3 mg BIDWMEALS PO Last administered on 06/24/18at 10:54; Start 06/23/18 at 17:00; Stop 06/24/18 at 14:14; Status DC Rivastigmine Tartrate (Exelon) 3 mg HS PO ; Start 06/27/18 at 09:00; Stop at 09:00; Status DC Nystatin (Nystop) 1 alan BID TP Last administered on 07/05/18at 19:28; Start 06/23 at 21:00 Mirtazapine (Remeron) 15 mg QHS PO Last administered on 07/05/18at 19:28; Start 06/23/18 at 21:00 Nystatin (Nystop) 15 alan STK-MED ONCE TP Last administered on 06/23/18at 19:15; Start 06/23/18 at 19:15; Stop 06/23/18 at 19:17; Status DC Rivastigmine Tartrate (Exelon) 3 mg BID PO Last administered on 07/05/18at 19:27 ; Start 06/24/18 at 21:00 Fluvoxamine Maleate (Luvox) 25 mg QHS PO Last administered on 06/25/18at 19:22; Start 06/24/18 at 21:00; Stop 06/26/18 at 19:00; Status DC Fluvoxamine Maleate (Luvox) 50 mg QHS PO Last administered on 06/30/18at 19:36; Start 06/26/18 at 21:00; Stop 07/01/18 at 20:00; Status DC Quetiapine Fumarate (SEROquel) 25 mg DAILY@1900 PO Last administered on at 19:27; Start 06/24/18 at 19:00 Quetiapine Fumarate (SEROquel) 25 mg BID@0900,1500 PO Last administered on 07/05at 15:48; Start 06/25/18 at 09:00 Bisacodyl (Dulcolax Supp) 10 mg PRN DAILY PRN [place] CONSTIPATION Last administered on 06/27/18at 11:54; Start 06/27/18 at 10:30 Fluvoxamine Maleate (Luvox) 75 mg QHS PO Last administered on 07/05/18at 19:28; Start 07/01/18 at 21:00 Divalproex Sodium (Depakote Sprinkles) 125 mg BID@0900,1700 PO Last administered on 07/05/18at 17:19; Start 06/30/18 at 17:00 Active Scripts Active Reported Tamsulosin Hcl 0.4 Mg Cap.er.24h 0.4 Mg PO DAILY Levothyroxine Sodium 88 Mcg Tablet 88 Mcg PO DAILYAC Escitalopram Oxalate 20 Mg Tablet 20 Mg PO DAILY Rivastigmine (Rivastigmine Tartrate) 1.5 Mg Capsule 1.5 Mg PO BID Namenda Xr (Memantine Hcl) 28 Mg Cap.spr.24 28 Mg PO DAILY I have reviewed the current psychotropics carefully including drug interactions. Risk benefit ratio favors no change other than as noted in my dictated progress note. Diagnosis: Problems: (1) Mental status alteration (2) Anxiety disorder (3) Dementia in Alzheimer's disease with delusions (4) Dementia in Alzheimer's disease with depression (5) Dementia, vascular, with delusions (6) Dementia, vascular, with depression (7) Impulse control disorder IMLAN TAYLOR MD Jul 05, 2018 22:30
[2018-07-06] MEDS: LEVOTHYROXINE 88 MCG TABLET PO SCH (06:00)
[2018-07-06 06:07] VITALS: BP 135/82
--- NOTE | 2018-07-06 06:50 | PDOC ---
Exam Note: Justin Note: PSYCHIATRIC PROGRESS NOTE This late entry 07/03/2018 covers elements, not covered in my initial note. SUBJECTIVE: I met with the patient individually in the evening of 07/03/2018. Reviewed information from nursing staff. Reviewed the chart. He slept 5-3/4 hours. He is compliant with his medications. Unsteady in his gait. He is extremely labile. He spat out his medications previous night, looking for his parents. REVIEW OF SYSTEMS: No CV, , pulmonary, eye, ENT system symptoms on review. MENTAL STATUS EXAMINATION: Oriented to himself. Insight and judgment, recent and remote memory, attention and concentration is poor consistent with his diagnosis. LABORATORY DATA: Reviewed. IMPRESSION: Major neurocognitive disorder, vascular with delusion, depression, behavioral disturbance. Rest unchanged. PLAN: I have reviewed carefully current psychotropics and drug interactions. There is no further change from my initial note. Assessment: Vital Signs: VS - Last 72 Hours, by Label Date Time Temp Pulse Resp B/P (MAP) Pulse Ox O2 Delivery O2 Flow Rate FiO2 07/06/18 06:07 97.1 56 16 135/82 (99) 93 07/05/18 15:38 98.6 68 19 112/60 (77) 95 07/05/18 06:20 99.0 72 16 122/73 (89) 98 07/04/18 15:30 98.0 72 20 114/60 (78) 99 07/04/18 05:26 97.3 79 16 150/88 (108) 94 07/03/18 16:11 97.9 65 22 111/73 (86) 98 Room Air Vital Signs Date Time Temp Pulse Resp B/P (MAP) Pulse Ox O2 Delivery O2 Flow Rate FiO2 07/06/18 06:07 97.1 56 16 135/82 (99) 93 07/03/18 16:11 Room Air I&O Intake and Output 07/06/18 07:01 Intake Total 840 ml Balance 840 ml Intake Oral 840 ml # Bowel Movements 1 Current Medications: Meds: Current Medications Lorazepam (Ativan) 2 mg 1X ONCE PO Last administered on 06/17/18at 19:54; Start 06/17/18 at 20:15; Stop 06/17/18 at 20:16; Status DC Acetaminophen (Tylenol) 650 mg PRN Q6HRS PRN PO PAIN / TEMP Last administered on 06/28/18 13:28; Start 06/17/18 at 21:30 Multi-Ingredient Ointment (Analgesic [place]) 1 alan PRN QID PRN TP MUSCLE PAIN Last administered on 06/24/18 13:11; Start 06/17/18 at 21:30 Al Hydroxide/Mg Hydroxide (Mylanta Plus Xs) 15 ml PRN AFTMEALHC PRN PO DYSPEPSIA; Start 06/17/18 at 21:30 Magnesium Hydroxide (Milk Of Magnesia) 2,400 mg PRN QHS PRN PO CONSTIPATION Last administered on 07/04/18 19:26; Start 06/17/18 at 21:30 Trazodone HCl (Desyrel) 25 mg PRN QHS PRN PO INSOMNIA Last administered on 07/04 22:14; Start 06/17/18 at 21:30 Olanzapine (ZyPREXA ZYDIS) 2.5 mg PRN Q2HR PRN PO PSYCHOSIS Last administered on 07/05/18 14:10; Start 06/17/18 at 21:30 Citalopram Hydrobromide (CeleXA) 40 mg DAILY PO Last administered on 06/19/18 08:09; Start 06/18/18 at 09:00; Stop 06/19/18 at 16:58; Status DC Memantine (Namenda) 10 mg BID PO Last administered on 07/05/18 19:27; Start at 09:00 Rivastigmine Tartrate (Exelon) 1.5 mg BIDWMEALS PO Last administered on 07:47; Start 06/18/18 at 08:00; Stop 06/23/18 at 16:38; Status DC Levothyroxine Sodium (Synthroid) 88 mcg DAILYAC PO Last administered on 08:11; Start 06/18/18 at 07:30; Stop 06/19/18 at 17:40; Status DC Tamsulosin HCl (Flomax) 0.4 mg DAILY PO Last administered on 07/05/18 11:08; Start 06/18/18 at 09:00 Hydroxyzine HCl (Atarax) 25 mg PRN Q2HR PRN PO ANXIETY / AGITATION Last administered on 1/6/19at 18:40; Start 06/18/18 at 23:00; Stop 06/21/18 at 20:10; Status DC Carbamide Peroxide (Debrox) 5 drop BID AU Last administered on 06/24/18at 11:00; Start 06/19/18 at 21:00; Stop 06/24/18 at 20:59; Status DC Mirtazapine (Remeron) 7.5 mg QHS PO Last administered on 06/22/18at 19:17; Start 06/19/18 at 21:00; Stop 06/23/18 at 18:12; Status DC Sertraline HCl (Zoloft) 50 mg DAILY PO Last administered on 06/24/18at 10:56; Start 06/20/18 at 09:00; Stop 06/24/18 at 18:42; Status DC Quetiapine Fumarate (SEROquel) 12.5 mg 0900,1700 PO Last administered on at 16:23; Start 06/19/18 at 17:00; Stop 06/22/18 at 16:55; Status DC Levothyroxine Sodium (Synthroid) 88 mcg DAILY06 PO Last administered on at 06:00; Start 06/20/18 at 06:00 Quetiapine Fumarate (SEROquel) 12.5 mg BID92 PO ; Start 06/23/18 at 09:00; Stop 06/23/18 at 09:00; Status DC Quetiapine Fumarate (SEROquel) 25 mg DAILY@1900 PO ; Start 06/22/18 at 19:00; Stop 06/22/18 at 19:00; Status DC Quetiapine Fumarate (SEROquel) 12.5 mg BID@0900,1500 PO Last administered on 06/24/18at 16:33; Start 06/23/18 at 09:00; Stop 06/24/18 at 18:46; Status DC Quetiapine Fumarate (SEROquel) 25 mg STK-MED ONCE .ROUTE ; Start 06/22/18 at 17: 12; Stop 06/22/18 at 17:14; Status DC Quetiapine Fumarate (SEROquel) 12.5 mg DAILY@1900 PO Last administered on at 18:16; Start 06/22/18 at 19:00; Stop 06/24/18 at 18:46; Status DC Rivastigmine Tartrate (Exelon) 1.5 mg DAILY PO Last administered on 06/24/18at 10 :58; Start 06/24/18 at 09:00; Stop 06/24/18 at 14:14; Status DC Rivastigmine Tartrate (Exelon) 3 mg HS PO ; Start 06/23/18 at 21:00; Stop at 21:00; Status DC Rivastigmine Tartrate (Exelon) 3 mg BIDWMEALS PO Last administered on 06/24/18at 10:54; Start 06/23/18 at 17:00; Stop 06/24/18 at 14:14; Status DC Rivastigmine Tartrate (Exelon) 3 mg HS PO ; Start 06/27/18 at 09:00; Stop at 09:00; Status DC Nystatin (Nystop) 1 alan BID TP Last administered on 07/05/18at 19:28; Start 06/23 at 21:00 Mirtazapine (Remeron) 15 mg QHS PO Last administered on 07/05/18at 19:28; Start 06/23/18 at 21:00 Nystatin (Nystop) 15 alan STK-MED ONCE TP Last administered on 06/23/18at 19:15; Start 06/23/18 at 19:15; Stop 06/23/18 at 19:17; Status DC Rivastigmine Tartrate (Exelon) 3 mg BID PO Last administered on 07/05/18at 19:27 ; Start 06/24/18 at 21:00 Fluvoxamine Maleate (Luvox) 25 mg QHS PO Last administered on 06/25/18at 19:22; Start 06/24/18 at 21:00; Stop 06/26/18 at 19:00; Status DC Fluvoxamine Maleate (Luvox) 50 mg QHS PO Last administered on 06/30/18at 19:36; Start 06/26/18 at 21:00; Stop 07/01/18 at 20:00; Status DC Quetiapine Fumarate (SEROquel) 25 mg DAILY@1900 PO Last administered on at 19:27; Start 06/24/18 at 19:00 Quetiapine Fumarate (SEROquel) 25 mg BID@0900,1500 PO Last administered on 07/05at 15:48; Start 06/25/18 at 09:00 Bisacodyl (Dulcolax Supp) 10 mg PRN DAILY PRN [place] CONSTIPATION Last administered on 06/27/18at 11:54; Start 06/27/18 at 10:30 Fluvoxamine Maleate (Luvox) 75 mg QHS PO Last administered on 07/05/18at 19:28; Start 07/01/18 at 21:00 Divalproex Sodium (Depakote Sprinkles) 125 mg BID@0900,1700 PO Last administered on 07/05/18at 17:19; Start 06/30/18 at 17:00 Active Scripts Active Reported Tamsulosin Hcl 0.4 Mg Cap.er.24h 0.4 Mg PO DAILY Levothyroxine Sodium 88 Mcg Tablet 88 Mcg PO DAILYAC Escitalopram Oxalate 20 Mg Tablet 20 Mg PO DAILY Rivastigmine (Rivastigmine Tartrate) 1.5 Mg Capsule 1.5 Mg PO BID Namenda Xr (Memantine Hcl) 28 Mg Cap.spr.24 28 Mg PO DAILY I have reviewed the current psychotropics carefully including drug interactions. Risk benefit ratio favors no change other than as noted in my dictated progress note. Diagnosis: Problems: (1) Mental status alteration (2) Anxiety disorder (3) Dementia in Alzheimer's disease with delusions (4) Dementia in Alzheimer's disease with depression (5) Dementia, vascular, with delusions (6) Dementia, vascular, with depression (7) Impulse control disorder MILAN TAYLOR MD Jul 06, 2018 06:50
--- NOTE | 2018-07-06 07:08 | PDOC ---
Exam Note: Justin Note: PSYCHIATRIC PROGRESS NOTE This late entry 07/04/2018 covers elements, not covered in my initial note. SUBJECTIVE: I met with the patient individually in the evening of 07/04/2018. Reviewed information from nursing staff. Reviewed the chart. He slept 6 hours. He has been ambulating better on his own, up for breakfast. He refused supper. He took his morning medications, less agitated. He is more compliant. He is certainly very confused. REVIEW OF SYSTEMS: No CV, , pulmonary, eye, ENT system symptoms on review. MENTAL STATUS EXAMINATION: Oriented to himself. Insight and judgment, recent and remote memory, attention and concentration is poor consistent with his diagnosis. LABORATORY DATA: Reviewed. IMPRESSION: Major neurocognitive disorder, vascular with delusion, depression, behavioral disturbance. Rest unchanged. PLAN: I have reviewed carefully current psychotropics. There is no change from my initial note. Assessment: Vital Signs: VS - Last 72 Hours, by Label Date Time Temp Pulse Resp B/P (MAP) Pulse Ox O2 Delivery O2 Flow Rate FiO2 07/06/18 06:07 97.1 56 16 135/82 (99) 93 07/05/18 15:38 98.6 68 19 112/60 (77) 95 07/05/18 06:20 99.0 72 16 122/73 (89) 98 07/04/18 15:30 98.0 72 20 114/60 (78) 99 07/04/18 05:26 97.3 79 16 150/88 (108) 94 07/03/18 16:11 97.9 65 22 111/73 (86) 98 Room Air Vital Signs Date Time Temp Pulse Resp B/P (MAP) Pulse Ox O2 Delivery O2 Flow Rate FiO2 07/06/18 06:07 97.1 56 16 135/82 (99) 93 07/03/18 16:11 Room Air I&O Intake and Output 07/06/18 07:01 Intake Total 840 ml Balance 840 ml Intake Oral 840 ml # Bowel Movements 1 Current Medications: Meds: Current Medications Lorazepam (Ativan) 2 mg 1X ONCE PO Last administered on 06/17/18at 19:54; Start 06/17/18 at 20:15; Stop 06/17/18 at 20:16; Status DC Acetaminophen (Tylenol) 650 mg PRN Q6HRS PRN PO PAIN / TEMP Last administered on 06/28/18 13:28; Start 06/17/18 at 21:30 Multi-Ingredient Ointment (Analgesic [place]) 1 alan PRN QID PRN TP MUSCLE PAIN Last administered on 06/24/18 13:11; Start 06/17/18 at 21:30 Al Hydroxide/Mg Hydroxide (Mylanta Plus Xs) 15 ml PRN AFTMEALHC PRN PO DYSPEPSIA; Start 06/17/18 at 21:30 Magnesium Hydroxide (Milk Of Magnesia) 2,400 mg PRN QHS PRN PO CONSTIPATION Last administered on 07/04/18 19:26; Start 06/17/18 at 21:30 Trazodone HCl (Desyrel) 25 mg PRN QHS PRN PO INSOMNIA Last administered on 07/04 22:14; Start 06/17/18 at 21:30 Olanzapine (ZyPREXA ZYDIS) 2.5 mg PRN Q2HR PRN PO PSYCHOSIS Last administered on 07/05/18 14:10; Start 06/17/18 at 21:30 Citalopram Hydrobromide (CeleXA) 40 mg DAILY PO Last administered on 06/19/18 08:09; Start 06/18/18 at 09:00; Stop 06/19/18 at 16:58; Status DC Memantine (Namenda) 10 mg BID PO Last administered on 07/05/18 19:27; Start at 09:00 Rivastigmine Tartrate (Exelon) 1.5 mg BIDWMEALS PO Last administered on 07:47; Start 06/18/18 at 08:00; Stop 06/23/18 at 16:38; Status DC Levothyroxine Sodium (Synthroid) 88 mcg DAILYAC PO Last administered on 08:11; Start 06/18/18 at 07:30; Stop 06/19/18 at 17:40; Status DC Tamsulosin HCl (Flomax) 0.4 mg DAILY PO Last administered on 07/05/18 11:08; Start 06/18/18 at 09:00 Hydroxyzine HCl (Atarax) 25 mg PRN Q2HR PRN PO ANXIETY / AGITATION Last administered on 1/6/19at 18:40; Start 06/18/18 at 23:00; Stop 06/21/18 at 20:10; Status DC Carbamide Peroxide (Debrox) 5 drop BID AU Last administered on 06/24/18at 11:00; Start 06/19/18 at 21:00; Stop 06/24/18 at 20:59; Status DC Mirtazapine (Remeron) 7.5 mg QHS PO Last administered on 06/22/18at 19:17; Start 06/19/18 at 21:00; Stop 06/23/18 at 18:12; Status DC Sertraline HCl (Zoloft) 50 mg DAILY PO Last administered on 06/24/18at 10:56; Start 06/20/18 at 09:00; Stop 06/24/18 at 18:42; Status DC Quetiapine Fumarate (SEROquel) 12.5 mg 0900,1700 PO Last administered on at 16:23; Start 06/19/18 at 17:00; Stop 06/22/18 at 16:55; Status DC Levothyroxine Sodium (Synthroid) 88 mcg DAILY06 PO Last administered on at 06:00; Start 06/20/18 at 06:00 Quetiapine Fumarate (SEROquel) 12.5 mg BID92 PO ; Start 06/23/18 at 09:00; Stop 06/23/18 at 09:00; Status DC Quetiapine Fumarate (SEROquel) 25 mg DAILY@1900 PO ; Start 06/22/18 at 19:00; Stop 06/22/18 at 19:00; Status DC Quetiapine Fumarate (SEROquel) 12.5 mg BID@0900,1500 PO Last administered on 06/24/18at 16:33; Start 06/23/18 at 09:00; Stop 06/24/18 at 18:46; Status DC Quetiapine Fumarate (SEROquel) 25 mg STK-MED ONCE .ROUTE ; Start 06/22/18 at 17: 12; Stop 06/22/18 at 17:14; Status DC Quetiapine Fumarate (SEROquel) 12.5 mg DAILY@1900 PO Last administered on at 18:16; Start 06/22/18 at 19:00; Stop 06/24/18 at 18:46; Status DC Rivastigmine Tartrate (Exelon) 1.5 mg DAILY PO Last administered on 06/24/18at 10 :58; Start 06/24/18 at 09:00; Stop 06/24/18 at 14:14; Status DC Rivastigmine Tartrate (Exelon) 3 mg HS PO ; Start 06/23/18 at 21:00; Stop at 21:00; Status DC Rivastigmine Tartrate (Exelon) 3 mg BIDWMEALS PO Last administered on 06/24/18at 10:54; Start 06/23/18 at 17:00; Stop 06/24/18 at 14:14; Status DC Rivastigmine Tartrate (Exelon) 3 mg HS PO ; Start 06/27/18 at 09:00; Stop at 09:00; Status DC Nystatin (Nystop) 1 alan BID TP Last administered on 07/05/18at 19:28; Start 06/23 at 21:00 Mirtazapine (Remeron) 15 mg QHS PO Last administered on 07/05/18at 19:28; Start 06/23/18 at 21:00 Nystatin (Nystop) 15 alan STK-MED ONCE TP Last administered on 06/23/18at 19:15; Start 06/23/18 at 19:15; Stop 06/23/18 at 19:17; Status DC Rivastigmine Tartrate (Exelon) 3 mg BID PO Last administered on 07/05/18at 19:27 ; Start 06/24/18 at 21:00 Fluvoxamine Maleate (Luvox) 25 mg QHS PO Last administered on 06/25/18at 19:22; Start 06/24/18 at 21:00; Stop 06/26/18 at 19:00; Status DC Fluvoxamine Maleate (Luvox) 50 mg QHS PO Last administered on 06/30/18at 19:36; Start 06/26/18 at 21:00; Stop 07/01/18 at 20:00; Status DC Quetiapine Fumarate (SEROquel) 25 mg DAILY@1900 PO Last administered on at 19:27; Start 06/24/18 at 19:00 Quetiapine Fumarate (SEROquel) 25 mg BID@0900,1500 PO Last administered on 07/05at 15:48; Start 06/25/18 at 09:00 Bisacodyl (Dulcolax Supp) 10 mg PRN DAILY PRN [place] CONSTIPATION Last administered on 06/27/18at 11:54; Start 06/27/18 at 10:30 Fluvoxamine Maleate (Luvox) 75 mg QHS PO Last administered on 07/05/18at 19:28; Start 07/01/18 at 21:00 Divalproex Sodium (Depakote Sprinkles) 125 mg BID@0900,1700 PO Last administered on 07/05/18at 17:19; Start 06/30/18 at 17:00 Active Scripts Active Reported Tamsulosin Hcl 0.4 Mg Cap.er.24h 0.4 Mg PO DAILY Levothyroxine Sodium 88 Mcg Tablet 88 Mcg PO DAILYAC Escitalopram Oxalate 20 Mg Tablet 20 Mg PO DAILY Rivastigmine (Rivastigmine Tartrate) 1.5 Mg Capsule 1.5 Mg PO BID Namenda Xr (Memantine Hcl) 28 Mg Cap.spr.24 28 Mg PO DAILY I have reviewed the current psychotropics carefully including drug interactions. Risk benefit ratio favors no change other than as noted in my dictated progress note. Diagnosis: Problems: (1) Mental status alteration (2) Anxiety disorder (3) Dementia in Alzheimer's disease with delusions (4) Dementia in Alzheimer's disease with depression (5) Dementia, vascular, with delusions (6) Dementia, vascular, with depression (7) Impulse control disorder MILAN TAYLOR MD Jul 06, 2018 07:08
[2018-07-06] MEDS: DIVALPROEX 125 MG CAP.SPRINK PO SCH ×2 (07:43→17:01)
[2018-07-06] MEDS: TAMSULOSIN 0.4 MG CAP.ER.24H. PO SCH (07:43)
[2018-07-06] MEDS: RIVASTIGMINE 3 MG CAPSULE. PO SCH ×2 (07:43→19:10)
[2018-07-06] MEDS: MEMANTINE 10 MG TABLET. PO SCH ×2 (07:43→19:09)
[2018-07-06] MEDS: QUEtiapine 25 MG TABLET. PO SCH ×3 (07:45→19:12)
[2018-07-06] MEDS: NYSTATIN TOPICAL POWDER 15GM BOTTLE. TP SCH ×2 (07:45→19:11)
[2018-07-06 16:38] VITALS: BP 135/72
[2018-07-06] MEDS: MIRTAZAPINE 15 MG TABLET PO SCH (19:09)
--- NOTE | 2018-07-06 22:30 | PDOC ---
Exam Note: Justin Note: Please also refer to the separate dictated note~for this date of service dictated separately.~Patient seen individually. Discussed the patient with Nursing staff reviewed the chart.~Reviewed interim history and current functioning. Reviewed vital signs,~Labs/ Radiology~and current medications noted below. Continue current treatment with the changes noted in the dictated addendum note Assessment: Vital Signs: Vital Signs Date Time Temp Pulse Resp B/P (MAP) Pulse Ox O2 Delivery O2 Flow Rate FiO2 07/06/18 16:38 98.3 66 18 135/72 (93) 97 07/03/18 16:11 Room Air I&O Intake and Output 07/06/18 07:01 Intake Total 840 ml Balance 840 ml Intake Oral 840 ml # Bowel Movements 1 Current Medications: Meds: Current Medications Lorazepam (Ativan) 2 mg 1X ONCE PO Last administered on 06/17/18 19:54; Start 06/17/18 at 20:15; Stop 06/17/18 at 20:16; Status DC Acetaminophen (Tylenol) 650 mg PRN Q6HRS PRN PO PAIN / TEMP Last administered on 06/28/18 13:28; Start 06/17/18 at 21:30 Multi-Ingredient Ointment (Analgesic [place]) 1 alan PRN QID PRN TP MUSCLE PAIN Last administered on 06/24/18 13:11; Start 06/17/18 at 21:30 Al Hydroxide/Mg Hydroxide (Mylanta Plus Xs) 15 ml PRN AFTMEALHC PRN PO DYSPEPSIA; Start 06/17/18 at 21:30 Magnesium Hydroxide (Milk Of Magnesia) 2,400 mg PRN QHS PRN PO CONSTIPATION Last administered on 07/04/18 19:26; Start 06/17/18 at 21:30 Trazodone HCl (Desyrel) 25 mg PRN QHS PRN PO INSOMNIA Last administered on 07/04 22:14; Start 06/17/18 at 21:30 Olanzapine (ZyPREXA ZYDIS) 2.5 mg PRN Q2HR PRN PO PSYCHOSIS Last administered on 07/05/18 14:10; Start 06/17/18 at 21:30 Citalopram Hydrobromide (CeleXA) 40 mg DAILY PO Last administered on 06/19/18 08:09; Start 06/18/18 at 09:00; Stop 06/19/18 at 16:58; Status DC Memantine (Namenda) 10 mg BID PO Last administered on 07/06/18at 19:09; Start at 09:00 Rivastigmine Tartrate (Exelon) 1.5 mg BIDWMEALS PO Last administered on 07:47; Start 06/18/18 at 08:00; Stop 06/23/18 at 16:38; Status DC Levothyroxine Sodium (Synthroid) 88 mcg DAILYAC PO Last administered on 08:11; Start 06/18/18 at 07:30; Stop 06/19/18 at 17:40; Status DC Tamsulosin HCl (Flomax) 0.4 mg DAILY PO Last administered on 07/06/18 07:43; Start 06/18/18 at 09:00 Hydroxyzine HCl (Atarax) 25 mg PRN Q2HR PRN PO ANXIETY / AGITATION Last administered on 06/21/18 18:40; Start 06/18/18 at 23:00; Stop 06/21/18 at 20:10; Status DC Carbamide Peroxide (Debrox) 5 drop BID AU Last administered on 06/24/18 11:00; Start 06/19/18 at 21:00; Stop 06/24/18 at 20:59; Status DC Mirtazapine (Remeron) 7.5 mg QHS PO Last administered on 06/22/18 19:17; Start 06/19/18 at 21:00; Stop 06/23/18 at 18:12; Status DC Sertraline HCl (Zoloft) 50 mg DAILY PO Last administered on 06/24/18at 10:56; Start 06/20/18 at 09:00; Stop 06/24/18 at 18:42; Status DC Quetiapine Fumarate (SEROquel) 12.5 mg 0900,1700 PO Last administered on 16:23; Start 06/19/18 at 17:00; Stop 06/22/18 at 16:55; Status DC Levothyroxine Sodium (Synthroid) 88 mcg DAILY06 PO Last administered on at 06:00; Start 06/20/18 at 06:00 Quetiapine Fumarate (SEROquel) 12.5 mg BID92 PO ; Start 06/23/18 at 09:00; Stop 06/23/18 at 09:00; Status DC Quetiapine Fumarate (SEROquel) 25 mg DAILY@1900 PO ; Start 06/22/18 at 19:00; Stop 06/22/18 at 19:00; Status DC Quetiapine Fumarate (SEROquel) 12.5 mg BID@0900,1500 PO Last administered on 06/24/18at 16:33; Start 06/23/18 at 09:00; Stop 06/24/18 at 18:46; Status DC Quetiapine Fumarate (SEROquel) 25 mg STK-MED ONCE .ROUTE ; Start 06/22/18 at 17: 12; Stop 06/22/18 at 17:14; Status DC Quetiapine Fumarate (SEROquel) 12.5 mg DAILY@1900 PO Last administered on at 18:16; Start 06/22/18 at 19:00; Stop 06/24/18 at 18:46; Status DC Rivastigmine Tartrate (Exelon) 1.5 mg DAILY PO Last administered on 06/24/18at 10 :58; Start 06/24/18 at 09:00; Stop 06/24/18 at 14:14; Status DC Rivastigmine Tartrate (Exelon) 3 mg HS PO ; Start 06/23/18 at 21:00; Stop at 21:00; Status DC Rivastigmine Tartrate (Exelon) 3 mg BIDWMEALS PO Last administered on 06/24/18at 10:54; Start 06/23/18 at 17:00; Stop 06/24/18 at 14:14; Status DC Rivastigmine Tartrate (Exelon) 3 mg HS PO ; Start 06/27/18 at 09:00; Stop at 09:00; Status DC Nystatin (Nystop) 1 alan BID TP Last administered on 07/06/18at 19:11; Start 06/23 at 21:00 Mirtazapine (Remeron) 15 mg QHS PO Last administered on 07/06/18at 19:09; Start 06/23/18 at 21:00 Nystatin (Nystop) 15 alan STK-MED ONCE TP Last administered on 06/23/18at 19:15; Start 06/23/18 at 19:15; Stop 06/23/18 at 19:17; Status DC Rivastigmine Tartrate (Exelon) 3 mg BID PO Last administered on 07/06/18at 19:10 ; Start 06/24/18 at 21:00 Fluvoxamine Maleate (Luvox) 25 mg QHS PO Last administered on 06/25/18at 19:22; Start 06/24/18 at 21:00; Stop 06/26/18 at 19:00; Status DC Fluvoxamine Maleate (Luvox) 50 mg QHS PO Last administered on 06/30/18at 19:36; Start 06/26/18 at 21:00; Stop 07/01/18 at 20:00; Status DC Quetiapine Fumarate (SEROquel) 25 mg DAILY@1900 PO Last administered on at 19:12; Start 06/24/18 at 19:00 Quetiapine Fumarate (SEROquel) 25 mg BID@0900,1500 PO Last administered on 07/06at 17:01; Start 06/25/18 at 09:00 Bisacodyl (Dulcolax Supp) 10 mg PRN DAILY PRN [place] CONSTIPATION Last administered on 06/27/18at 11:54; Start 06/27/18 at 10:30 Fluvoxamine Maleate (Luvox) 75 mg QHS PO Last administered on 07/06/18at 19:10; Start 07/01/18 at 21:00 Divalproex Sodium (Depakote Sprinkles) 125 mg BID@0900,1700 PO Last administered on 07/06/18at 17:01; Start 06/30/18 at 17:00 Active Scripts Active Reported Tamsulosin Hcl 0.4 Mg Cap.er.24h 0.4 Mg PO DAILY Levothyroxine Sodium 88 Mcg Tablet 88 Mcg PO DAILYAC Escitalopram Oxalate 20 Mg Tablet 20 Mg PO DAILY Rivastigmine (Rivastigmine Tartrate) 1.5 Mg Capsule 1.5 Mg PO BID Namenda Xr (Memantine Hcl) 28 Mg Cap.spr.24 28 Mg PO DAILY I have reviewed the current psychotropics carefully including drug interactions. Risk benefit ratio favors no change other than as noted in my dictated progress note. Diagnosis: Problems: (1) Mental status alteration (2) Anxiety disorder (3) Dementia in Alzheimer's disease with delusions (4) Dementia in Alzheimer's disease with depression (5) Dementia, vascular, with delusions (6) Dementia, vascular, with depression (7) Impulse control disorder MILAN TAYLOR MD Jul 06, 2018 22:30
[2018-07-07 05:35] VITALS: BP 116/72
[2018-07-07] MEDS: LEVOTHYROXINE 88 MCG TABLET PO SCH (05:52)
[2018-07-07] MEDS: TAMSULOSIN 0.4 MG CAP.ER.24H. PO SCH (07:59)
[2018-07-07] MEDS: RIVASTIGMINE 3 MG CAPSULE. PO SCH ×2 (07:59→19:33)
[2018-07-07] MEDS: DIVALPROEX 125 MG CAP.SPRINK PO SCH ×2 (08:00→17:01)
[2018-07-07] MEDS: MEMANTINE 10 MG TABLET. PO SCH ×2 (08:00→19:33)
[2018-07-07] MEDS: QUEtiapine 25 MG TABLET. PO SCH ×3 (08:00→18:20)
[2018-07-07] MEDS: NYSTATIN TOPICAL POWDER 15GM BOTTLE. TP SCH ×2 (08:01→19:33)
[2018-07-07 15:44] VITALS: BP 123/73
--- NOTE | 2018-07-07 17:01 | PN ---
DATE: 07/05/2018 PSYCHIATRIC PROGRESS NOTE This late entry 07/05/2018 covers elements not covered in my initial note. SUBJECTIVE: The patient slept 6-1/2 hours. He remains pleasant, spits out of his meds at times, very confused, ambulating better on his own. No active suicidal or homicidal ideation more redirectable. Tolerating his Depakote, Exelon, Namenda, Luvox, Seroquel along with trazodone and Remeron for now. IMPRESSION: Unchanged from initial note. PLAN: No change from initial note. MAN Connie TAYLOR MD DR: NATAN/alfredo JOB#: [id number] / [id number]
--- NOTE | 2018-07-07 17:48 | PN ---
DATE: 07/06/2018 PSYCHIATRIC PROGRESS NOTE This late entry 07/06/2018 covers elements not covered in my initial note. SUBJECTIVE: I met with the patient in the evening. Overall, the patient has had a better day, slept 7-1/2 hours, has been moving around, ambulating on his own, more redirectable, certainly very confused. REVIEW OF SYSTEMS: No CV, , pulmonary, eye, ENT system symptoms on review. Reliability poor. MENTAL STATUS EXAM: Oriented to himself. Insight, judgment, recent and remote memory, attention, concentration, fund of knowledge poor, consistent with his diagnosis. IMPRESSION: Major neurocognitive disorder, Alzheimer, vascular with delusion, depression, behavioral disturbance; anxiety disorder, unspecified; impulse control disorder, unspecified. PLAN: No change from initial note. Continued Luvox, Depakote, Exelon tablets, Namenda, Zyprexa p.r.n., Seroquel, trazodone, and Remeron. MILAN TAYLOR MD DR: NATAN/alfredo JOB#: [id number] / [id number]
[2018-07-07] MEDS: MIRTAZAPINE 15 MG TABLET PO SCH (19:33)
[2018-07-07] MEDS: traZODone 50 MG TABLET. PO PRN (22:21)
--- NOTE | 2018-07-07 22:21 | PDOC ---
Exam Note: Justin Note: Please also refer to the separate dictated note~for this date of service dictated separately.~Patient seen individually. Discussed the patient with Nursing staff reviewed the chart.~Reviewed interim history and current functioning. Reviewed vital signs,~Labs/ Radiology~and current medications noted below. Continue current treatment with the changes noted in the dictated addendum note Assessment: Vital Signs: Vital Signs Date Time Temp Pulse Resp B/P (MAP) Pulse Ox O2 Delivery O2 Flow Rate FiO2 07/07/18 15:44 97.4 64 18 123/73 (90) 98 07/07/18 05:35 Room Air I&O Intake and Output 07/07/18 07:01 Intake Total 1200 ml Balance 1200 ml Intake Oral 1200 ml # Voids 1 Current Medications: Meds: Current Medications Lorazepam (Ativan) 2 mg 1X ONCE PO Last administered on 06/17/18 19:54; Start 06/17/18 at 20:15; Stop 06/17/18 at 20:16; Status DC Acetaminophen (Tylenol) 650 mg PRN Q6HRS PRN PO PAIN / TEMP Last administered on 06/28/18at 13:28; Start 06/17/18 at 21:30 Multi-Ingredient Ointment (Analgesic [place]) 1 alan PRN QID PRN TP MUSCLE PAIN Last administered on 06/24/18 13:11; Start 06/17/18 at 21:30 Al Hydroxide/Mg Hydroxide (Mylanta Plus Xs) 15 ml PRN AFTMEALHC PRN PO DYSPEPSIA; Start 06/17/18 at 21:30 Magnesium Hydroxide (Milk Of Magnesia) 2,400 mg PRN QHS PRN PO CONSTIPATION Last administered on 07/04/18at 19:26; Start 06/17/18 at 21:30 Trazodone HCl (Desyrel) 25 mg PRN QHS PRN PO INSOMNIA Last administered on 07/04 22:14; Start 06/17/18 at 21:30 Olanzapine (ZyPREXA ZYDIS) 2.5 mg PRN Q2HR PRN PO PSYCHOSIS Last administered on 07/07/18at 17:29; Start 06/17/18 at 21:30 Citalopram Hydrobromide (CeleXA) 40 mg DAILY PO Last administered on 06/19/18 08:09; Start 06/18/18 at 09:00; Stop 06/19/18 at 16:58; Status DC Memantine (Namenda) 10 mg BID PO Last administered on 07/07/18at 19:33; Start at 09:00 Rivastigmine Tartrate (Exelon) 1.5 mg BIDWMEALS PO Last administered on at 07:47; Start 06/18/18 at 08:00; Stop 06/23/18 at 16:38; Status DC Levothyroxine Sodium (Synthroid) 88 mcg DAILYAC PO Last administered on 08:11; Start 06/18/18 at 07:30; Stop 06/19/18 at 17:40; Status DC Tamsulosin HCl (Flomax) 0.4 mg DAILY PO Last administered on 07/07/18at 07:59; Start 06/18/18 at 09:00 Hydroxyzine HCl (Atarax) 25 mg PRN Q2HR PRN PO ANXIETY / AGITATION Last administered on 06/21/18at 18:40; Start 06/18/18 at 23:00; Stop 06/21/18 at 20:10; Status DC Carbamide Peroxide (Debrox) 5 drop BID AU Last administered on 06/24/18 11:00; Start 06/19/18 at 21:00; Stop 06/24/18 at 20:59; Status DC Mirtazapine (Remeron) 7.5 mg QHS PO Last administered on 06/22/18 19:17; Start 06/19/18 at 21:00; Stop 06/23/18 at 18:12; Status DC Sertraline HCl (Zoloft) 50 mg DAILY PO Last administered on 06/24/18at 10:56; Start 06/20/18 at 09:00; Stop 06/24/18 at 18:42; Status DC Quetiapine Fumarate (SEROquel) 12.5 mg 0900,1700 PO Last administered on 16:23; Start 06/19/18 at 17:00; Stop 06/22/18 at 16:55; Status DC Levothyroxine Sodium (Synthroid) 88 mcg DAILY06 PO Last administered on at 05:52; Start 06/20/18 at 06:00 Quetiapine Fumarate (SEROquel) 12.5 mg BID92 PO ; Start 06/23/18 at 09:00; Stop 06/23/18 at 09:00; Status DC Quetiapine Fumarate (SEROquel) 25 mg DAILY@1900 PO ; Start 06/22/18 at 19:00; Stop 06/22/18 at 19:00; Status DC Quetiapine Fumarate (SEROquel) 12.5 mg BID@0900,1500 PO Last administered on 06/24/18at 16:33; Start 06/23/18 at 09:00; Stop 06/24/18 at 18:46; Status DC Quetiapine Fumarate (SEROquel) 25 mg STK-MED ONCE .ROUTE ; Start 06/22/18 at 17: 12; Stop 06/22/18 at 17:14; Status DC Quetiapine Fumarate (SEROquel) 12.5 mg DAILY@1900 PO Last administered on at 18:16; Start 06/22/18 at 19:00; Stop 06/24/18 at 18:46; Status DC Rivastigmine Tartrate (Exelon) 1.5 mg DAILY PO Last administered on 06/24/18at 10 :58; Start 06/24/18 at 09:00; Stop 06/24/18 at 14:14; Status DC Rivastigmine Tartrate (Exelon) 3 mg HS PO ; Start 06/23/18 at 21:00; Stop at 21:00; Status DC Rivastigmine Tartrate (Exelon) 3 mg BIDWMEALS PO Last administered on 06/24/18at 10:54; Start 06/23/18 at 17:00; Stop 06/24/18 at 14:14; Status DC Rivastigmine Tartrate (Exelon) 3 mg HS PO ; Start 06/27/18 at 09:00; Stop at 09:00; Status DC Nystatin (Nystop) 1 alan BID TP Last administered on 07/07/18at 19:33; Start 06/23 at 21:00 Mirtazapine (Remeron) 15 mg QHS PO Last administered on 07/07/18at 19:33; Start 06/23/18 at 21:00 Nystatin (Nystop) 15 alan STK-MED ONCE TP Last administered on 06/23/18at 19:15; Start 06/23/18 at 19:15; Stop 06/23/18 at 19:17; Status DC Rivastigmine Tartrate (Exelon) 3 mg BID PO Last administered on 07/07/18at 19:33 ; Start 06/24/18 at 21:00 Fluvoxamine Maleate (Luvox) 25 mg QHS PO Last administered on 06/25/18at 19:22; Start 06/24/18 at 21:00; Stop 06/26/18 at 19:00; Status DC Fluvoxamine Maleate (Luvox) 50 mg QHS PO Last administered on 06/30/18at 19:36; Start 06/26/18 at 21:00; Stop 07/01/18 at 20:00; Status DC Quetiapine Fumarate (SEROquel) 25 mg DAILY@1900 PO Last administered on at 18:20; Start 06/24/18 at 19:00 Quetiapine Fumarate (SEROquel) 25 mg BID@0900,1500 PO Last administered on 07/07at 15:20; Start 06/25/18 at 09:00 Bisacodyl (Dulcolax Supp) 10 mg PRN DAILY PRN [place] CONSTIPATION Last administered on 06/27/18at 11:54; Start 06/27/18 at 10:30 Fluvoxamine Maleate (Luvox) 75 mg QHS PO Last administered on 07/07/18at 19:33; Start 07/01/18 at 21:00 Divalproex Sodium (Depakote Sprinkles) 125 mg BID@0900,1700 PO Last administered on 07/07/18at 17:01; Start 06/30/18 at 17:00 Active Scripts Active Reported Tamsulosin Hcl 0.4 Mg Cap.er.24h 0.4 Mg PO DAILY Levothyroxine Sodium 88 Mcg Tablet 88 Mcg PO DAILYAC Escitalopram Oxalate 20 Mg Tablet 20 Mg PO DAILY Rivastigmine (Rivastigmine Tartrate) 1.5 Mg Capsule 1.5 Mg PO BID Namenda Xr (Memantine Hcl) 28 Mg Cap.spr.24 28 Mg PO DAILY I have reviewed the current psychotropics carefully including drug interactions. Risk benefit ratio favors no change other than as noted in my dictated progress note. Diagnosis: Problems: (1) Mental status alteration (2) Anxiety disorder (3) Dementia in Alzheimer's disease with delusions (4) Dementia in Alzheimer's disease with depression (5) Dementia, vascular, with delusions (6) Dementia, vascular, with depression (7) Impulse control disorder MILAN TAYLOR MD Jul 07, 2018 22:21
[2018-07-08 06:16] VITALS: BP 123/78
[2018-07-08] MEDS: LEVOTHYROXINE 88 MCG TABLET PO SCH (06:30)
[2018-07-08] MEDS: MEMANTINE 10 MG TABLET. PO SCH ×2 (07:15→21:01)
[2018-07-08] MEDS: NYSTATIN TOPICAL POWDER 15GM BOTTLE. TP SCH ×2 (07:15→21:03)
[2018-07-08] MEDS: RIVASTIGMINE 3 MG CAPSULE. PO SCH ×2 (07:15→21:01)
[2018-07-08] MEDS: TAMSULOSIN 0.4 MG CAP.ER.24H. PO SCH (07:15)
[2018-07-08] MEDS: DIVALPROEX 125 MG CAP.SPRINK PO SCH ×2 (07:15→17:10)
[2018-07-08] MEDS: QUEtiapine 25 MG TABLET. PO SCH ×3 (07:16→18:16)
[2018-07-08] MEDS: ACETAMINOPHEN 325 MG TABLET PO PRN (11:59)
[2018-07-08 16:56] VITALS: BP 166/75
--- NOTE | 2018-07-08 20:43 | PN ---
DATE: 07/07/2018 PSYCHIATRIC PROGRESS NOTE This late entry 07/07/2018 covers elements not covered in my initial note. SUBJECTIVE: Met with the patient in the evening. The patient slept 7 hours previous night, which is an improvement. He was not combative previous night, but little agitated before bedtime. No combativeness on 07/07/2018. He thinks he is at work and needs to get a job. Everyone's not working as hard as he thinks it should. I just had to go along with this conversation rather than redirect him because of his significant memory deficits, which only increases his agitation in this respect. REVIEW OF SYSTEMS: No CV, , pulmonary, eye, ENT system symptoms on review. Reliability is poor. MENTAL STATUS EXAM: Oriented to himself. Insight, judgment, recent and remote memory, attention, concentration, fund of knowledge is poor, consistent with his diagnoses. IMPRESSION: Major neurocognitive disorder, probably vascular, Alzheimer's with delusion, depression, behavioral disturbance; anxiety disorder, unspecified; impulse control disorder, unspecified. Rest unchanged. PLAN: Continue psychotropics from initial note. Adjust further as clinically indicated. MAN Connie TAYLOR MD DR: NATAN/alfredo JOB#: [id number] / [id number]
[2018-07-08] MEDS: MIRTAZAPINE 15 MG TABLET PO SCH (21:01)
[2018-07-08] MEDS: traZODone 50 MG TABLET. PO PRN (21:03)
--- NOTE | 2018-07-08 22:34 | PDOC ---
Exam Note: Justin Note: Please also refer to the separate dictated note~for this date of service dictated separately.~Patient seen individually. Discussed the patient with Nursing staff reviewed the chart.~Reviewed interim history and current functioning. Reviewed vital signs,~Labs/ Radiology~and current medications noted below. Continue current treatment with the changes noted in the dictated addendum note Assessment: Vital Signs: Vital Signs Date Time Temp Pulse Resp B/P (MAP) Pulse Ox O2 Delivery O2 Flow Rate FiO2 07/08/18 16:56 97.6 92 19 166/75 (105) 90 07/07/18 05:35 Room Air I&O Intake and Output 07/08/18 07:01 Intake Total 1080 ml Balance 1080 ml Intake Oral 1080 ml Current Medications: Meds: Current Medications Lorazepam (Ativan) 2 mg 1X ONCE PO Last administered on 06/17/18 19:54; Start 06/17/18 at 20:15; Stop 06/17/18 at 20:16; Status DC Acetaminophen (Tylenol) 650 mg PRN Q6HRS PRN PO PAIN / TEMP Last administered on 07/08/18 11:59; Start 06/17/18 at 21:30 Multi-Ingredient Ointment (Analgesic [place]) 1 alan PRN QID PRN TP MUSCLE PAIN Last administered on 06/24/18 13:11; Start 06/17/18 at 21:30 Al Hydroxide/Mg Hydroxide (Mylanta Plus Xs) 15 ml PRN AFTMEALHC PRN PO DYSPEPSIA; Start 06/17/18 at 21:30 Magnesium Hydroxide (Milk Of Magnesia) 2,400 mg PRN QHS PRN PO CONSTIPATION Last administered on 07/04/18 19:26; Start 06/17/18 at 21:30 Trazodone HCl (Desyrel) 25 mg PRN QHS PRN PO INSOMNIA Last administered on 07/08 21:03; Start 06/17/18 at 21:30 Olanzapine (ZyPREXA ZYDIS) 2.5 mg PRN Q2HR PRN PO PSYCHOSIS Last administered on 07/08/18 09:55; Start 06/17/18 at 21:30 Citalopram Hydrobromide (CeleXA) 40 mg DAILY PO Last administered on 06/19/18 08:09; Start 06/18/18 at 09:00; Stop 06/19/18 at 16:58; Status DC Memantine (Namenda) 10 mg BID PO Last administered on 07/08/18at 21:01; Start at 09:00 Rivastigmine Tartrate (Exelon) 1.5 mg BIDWMEALS PO Last administered on at 07:47; Start 06/18/18 at 08:00; Stop 06/23/18 at 16:38; Status DC Levothyroxine Sodium (Synthroid) 88 mcg DAILYAC PO Last administered on at 08:11; Start 06/18/18 at 07:30; Stop 06/19/18 at 17:40; Status DC Tamsulosin HCl (Flomax) 0.4 mg DAILY PO Last administered on 07/08/18at 07:15; Start 06/18/18 at 09:00 Hydroxyzine HCl (Atarax) 25 mg PRN Q2HR PRN PO ANXIETY / AGITATION Last administered on 06/21/18at 18:40; Start 06/18/18 at 23:00; Stop 06/21/18 at 20:10; Status DC Carbamide Peroxide (Debrox) 5 drop BID AU Last administered on 06/24/18at 11:00; Start 06/19/18 at 21:00; Stop 06/24/18 at 20:59; Status DC Mirtazapine (Remeron) 7.5 mg QHS PO Last administered on 06/22/18at 19:17; Start 06/19/18 at 21:00; Stop 06/23/18 at 18:12; Status DC Sertraline HCl (Zoloft) 50 mg DAILY PO Last administered on 06/24/18at 10:56; Start 06/20/18 at 09:00; Stop 06/24/18 at 18:42; Status DC Quetiapine Fumarate (SEROquel) 12.5 mg 0900,1700 PO Last administered on 16:23; Start 06/19/18 at 17:00; Stop 06/22/18 at 16:55; Status DC Levothyroxine Sodium (Synthroid) 88 mcg DAILY06 PO Last administered on at 06:30; Start 06/20/18 at 06:00 Quetiapine Fumarate (SEROquel) 12.5 mg BID92 PO ; Start 06/23/18 at 09:00; Stop 06/23/18 at 09:00; Status DC Quetiapine Fumarate (SEROquel) 25 mg DAILY@1900 PO ; Start 06/22/18 at 19:00; Stop 06/22/18 at 19:00; Status DC Quetiapine Fumarate (SEROquel) 12.5 mg BID@0900,1500 PO Last administered on 06/24/18at 16:33; Start 06/23/18 at 09:00; Stop 06/24/18 at 18:46; Status DC Quetiapine Fumarate (SEROquel) 25 mg STK-MED ONCE .ROUTE ; Start 06/22/18 at 17: 12; Stop 06/22/18 at 17:14; Status DC Quetiapine Fumarate (SEROquel) 12.5 mg DAILY@1900 PO Last administered on at 18:16; Start 06/22/18 at 19:00; Stop 06/24/18 at 18:46; Status DC Rivastigmine Tartrate (Exelon) 1.5 mg DAILY PO Last administered on 06/24/18at 10 :58; Start 06/24/18 at 09:00; Stop 06/24/18 at 14:14; Status DC Rivastigmine Tartrate (Exelon) 3 mg HS PO ; Start 06/23/18 at 21:00; Stop at 21:00; Status DC Rivastigmine Tartrate (Exelon) 3 mg BIDWMEALS PO Last administered on 06/24/18at 10:54; Start 06/23/18 at 17:00; Stop 06/24/18 at 14:14; Status DC Rivastigmine Tartrate (Exelon) 3 mg HS PO ; Start 06/27/18 at 09:00; Stop at 09:00; Status DC Nystatin (Nystop) 1 alan BID TP Last administered on 07/08/18at 21:03; Start 06/23 at 21:00 Mirtazapine (Remeron) 15 mg QHS PO Last administered on 07/08/18at 21:01; Start 06/23/18 at 21:00 Nystatin (Nystop) 15 alan STK-MED ONCE TP Last administered on 06/23/18at 19:15; Start 06/23/18 at 19:15; Stop 06/23/18 at 19:17; Status DC Rivastigmine Tartrate (Exelon) 3 mg BID PO Last administered on 07/08/18at 21:01 ; Start 06/24/18 at 21:00 Fluvoxamine Maleate (Luvox) 25 mg QHS PO Last administered on 06/25/18at 19:22; Start 06/24/18 at 21:00; Stop 06/26/18 at 19:00; Status DC Fluvoxamine Maleate (Luvox) 50 mg QHS PO Last administered on 06/30/18at 19:36; Start 06/26/18 at 21:00; Stop 07/01/18 at 20:00; Status DC Quetiapine Fumarate (SEROquel) 25 mg DAILY@1900 PO Last administered on at 18:16; Start 06/24/18 at 19:00 Quetiapine Fumarate (SEROquel) 25 mg BID@0900,1500 PO Last administered on 07/08at 15:36; Start 06/25/18 at 09:00 Bisacodyl (Dulcolax Supp) 10 mg PRN DAILY PRN [place] CONSTIPATION Last administered on 06/27/18at 11:54; Start 06/27/18 at 10:30 Fluvoxamine Maleate (Luvox) 75 mg QHS PO Last administered on 07/08/18at 21:01; Start 07/01/18 at 21:00 Divalproex Sodium (Depakote Sprinkles) 125 mg BID@0900,1700 PO Last administered on 07/08/18at 17:10; Start 06/30/18 at 17:00 Active Scripts Active Reported Tamsulosin Hcl 0.4 Mg Cap.er.24h 0.4 Mg PO DAILY Levothyroxine Sodium 88 Mcg Tablet 88 Mcg PO DAILYAC Escitalopram Oxalate 20 Mg Tablet 20 Mg PO DAILY Rivastigmine (Rivastigmine Tartrate) 1.5 Mg Capsule 1.5 Mg PO BID Namenda Xr (Memantine Hcl) 28 Mg Cap.spr.24 28 Mg PO DAILY I have reviewed the current psychotropics carefully including drug interactions. Risk benefit ratio favors no change other than as noted in my dictated progress note. Diagnosis: Problems: (1) Mental status alteration (2) Anxiety disorder (3) Dementia in Alzheimer's disease with delusions (4) Dementia in Alzheimer's disease with depression (5) Dementia, vascular, with delusions (6) Dementia, vascular, with depression (7) Impulse control disorder MILAN TAYLOR MD Jul 08, 2018 22:34
[2018-07-09 05:32] VITALS: BP 118/70
[2018-07-09] MEDS: LEVOTHYROXINE 88 MCG TABLET PO SCH (06:24)
[2018-07-09 08:16] LABS: BASO % 1 % (0-3); EOS # 0.4 x10^3/uL (0.0-0.7); EOS % 6 % (0-3); HEMATOCRIT 36.3 % (39.0-53.0); HEMOGLOBIN 12.3 g/dL (13.0-17.5); LYMPH # 1.6 x10^3/uL (1.0-4.8); LYMPH % 23 % (24-48); MEAN CORPUSCULAR HEMOGLOBIN 31 pg (25-35); MEAN CORPUSCULAR HGB CONC 34 g/dL (31-37); MEAN CORPUSCULAR VOLUME 92 fL (79-100); MONO % 14 % (0-9); NEUT % 56 % (31-73); PLATELET COUNT 243 x10^3/uL (140-400); RED BLOOD COUNT 3.96 x10^6/uL (4.30-5.70); RED CELL DISTRIBUTION WIDTH 13.1 % (11.5-14.5)
[2018-07-09 08:24] LABS: ALBUMIN 2.8 g/dL (3.4-5.0); ALBUMIN/GLOBULIN RATIO 0.6 (1.0-1.7); CALCIUM 8.6 mg/dL (8.5-10.1); CREATININE 1.1 mg/dL (0.7-1.3); GFR 64.7; POTASSIUM 4.1 mmol/L (3.5-5.1); TOTAL BILIRUBIN 0.3 mg/dL (0.2-1.0); TOTAL PROTEIN 7.4 g/dL (6.4-8.2)
[2018-07-09] MEDS: RIVASTIGMINE 3 MG CAPSULE. PO SCH ×2 (10:14→20:50)
[2018-07-09] MEDS: MEMANTINE 10 MG TABLET. PO SCH ×2 (10:14→20:50)
[2018-07-09] MEDS: QUEtiapine 25 MG TABLET. PO SCH ×3 (10:14→17:49)
[2018-07-09] MEDS: DIVALPROEX 125 MG CAP.SPRINK PO SCH ×3 (10:14→17:00)
[2018-07-09] MEDS: NYSTATIN TOPICAL POWDER 15GM BOTTLE. TP SCH ×2 (10:14→20:54)
[2018-07-09] MEDS: TAMSULOSIN 0.4 MG CAP.ER.24H. PO SCH (10:14)
[2018-07-09 16:37] VITALS: BP 99/64
[2018-07-09] MEDS: MIRTAZAPINE 7.5 MG TABLET. PO SCH (20:53)
--- NOTE | 2018-07-09 22:46 | PDOC ---
Exam Note: Justin Note: Please also refer to the separate dictated note~for this date of service dictated separately.~Patient seen individually. Discussed the patient with Nursing staff reviewed the chart.~Reviewed interim history and current functioning. Reviewed vital signs,~Labs/ Radiology~and current medications noted below. Continue current treatment with the changes noted in the dictated addendum note Assessment: Vital Signs: Vital Signs Date Time Temp Pulse Resp B/P (MAP) Pulse Ox O2 Delivery O2 Flow Rate FiO2 07/09/18 16:37 98.0 106 16 99/64 (76) 100 07/07/18 05:35 Room Air I&O Intake and Output 07/09/18 07:01 Intake Total 810 ml Balance 810 ml Intake Oral 810 ml Labs: Laboratory Tests Test 07/09/18 07:28 White Blood Count 7.0 x10^3/uL (4.0-11.0) Red Blood Count 3.96 x10^6/uL (4.30-5.70) L Hemoglobin 12.3 g/dL (13.0-17.5) L Hematocrit 36.3 % (39.0-53.0) L Mean Corpuscular Volume 92 fL (79-100) Mean Corpuscular Hemoglobin 31 pg (25-35) Mean Corpuscular Hemoglobin Concent 34 g/dL (31-37) Red Cell Distribution Width 13.1 % (11.5-14.5) Platelet Count 243 x10^3/uL (140-400) Neutrophils (%) (Auto) 56 % (31-73) Lymphocytes (%) (Auto) 23 % (24-48) L Monocytes (%) (Auto) 14 % (0-9) H Eosinophils (%) (Auto) 6 % (0-3) H Basophils (%) (Auto) 1 % (0-3) Neutrophils # (Auto) 4.0 x10^3uL (1.8-7.7) Lymphocytes # (Auto) 1.6 x10^3/uL (1.0-4.8) Monocytes # (Auto) 1.0 x10^3/uL (0.0-1.1) Eosinophils # (Auto) 0.4 x10^3/uL (0.0-0.7) Basophils # (Auto) 0.0 x10^3/uL (0.0-0.2) Sodium Level 141 mmol/L (136-145) Potassium Level 4.1 mmol/L (3.5-5.1) Chloride Level 107 mmol/L (98-107) Carbon Dioxide Level 28 mmol/L (21-32) Anion Gap 6 (6-14) Blood Urea Nitrogen 29 mg/dL (8-26) H Creatinine 1.1 mg/dL (0.7-1.3) Estimated GFR (Cockcroft-Gault) 64.7 BUN/Creatinine Ratio 26 (6-20) H Glucose Level 92 mg/dL (70-99) Calcium Level 8.6 mg/dL (8.5-10.1) Total Bilirubin 0.3 mg/dL (0.2-1.0) Aspartate Amino Transferase (AST) 20 U/L (15-37) Alanine Aminotransferase (ALT) 35 U/L (16-63) Alkaline Phosphatase 94 U/L (46-116) Total Protein 7.4 g/dL (6.4-8.2) Albumin 2.8 g/dL (3.4-5.0) L Albumin/Globulin Ratio 0.6 (1.0-1.7) L Current Medications: Meds: Current Medications Lorazepam (Ativan) 2 mg 1X ONCE PO Last administered on 06/17/18 19:54; Start 06/17/18 at 20:15; Stop 06/17/18 at 20:16; Status DC Acetaminophen (Tylenol) 650 mg PRN Q6HRS PRN PO PAIN / TEMP Last administered on 07/08/18 11:59; Start 06/17/18 at 21:30 Multi-Ingredient Ointment (Analgesic [place]) 1 alan PRN QID PRN TP MUSCLE PAIN Last administered on 06/24/18 13:11; Start 06/17/18 at 21:30 Al Hydroxide/Mg Hydroxide (Mylanta Plus Xs) 15 ml PRN AFTMEALHC PRN PO DYSPEPSIA Last administered on 07/09/18 17:03; Start 06/17/18 at 21:30 Magnesium Hydroxide (Milk Of Magnesia) 2,400 mg PRN QHS PRN PO CONSTIPATION Last administered on 07/04/18at 19:26; Start 06/17/18 at 21:30 Trazodone HCl (Desyrel) 25 mg PRN QHS PRN PO INSOMNIA Last administered on 07/08 21:03; Start 06/17/18 at 21:30 Olanzapine (ZyPREXA ZYDIS) 2.5 mg PRN Q2HR PRN PO PSYCHOSIS Last administered on 07/08/18 09:55; Start 06/17/18 at 21:30 Citalopram Hydrobromide (CeleXA) 40 mg DAILY PO Last administered on 06/19/18 08:09; Start 06/18/18 at 09:00; Stop 06/19/18 at 16:58; Status DC Memantine (Namenda) 10 mg BID PO Last administered on 07/09/18 20:50; Start at 09:00 Rivastigmine Tartrate (Exelon) 1.5 mg BIDWMEALS PO Last administered on 07:47; Start 06/18/18 at 08:00; Stop 06/23/18 at 16:38; Status DC Levothyroxine Sodium (Synthroid) 88 mcg DAILYAC PO Last administered on 08:11; Start 06/18/18 at 07:30; Stop 06/19/18 at 17:40; Status DC Tamsulosin HCl (Flomax) 0.4 mg DAILY PO Last administered on 07/09/18 10:14; Start 06/18/18 at 09:00 Hydroxyzine HCl (Atarax) 25 mg PRN Q2HR PRN PO ANXIETY / AGITATION Last administered on 06/21/18 18:40; Start 06/18/18 at 23:00; Stop 06/21/18 at 20:10; Status DC Carbamide Peroxide (Debrox) 5 drop BID AU Last administered on 06/24/18 11:00; Start 06/19/18 at 21:00; Stop 06/24/18 at 20:59; Status DC Mirtazapine (Remeron) 7.5 mg QHS PO Last administered on 06/22/18 19:17; Start 06/19/18 at 21:00; Stop 06/23/18 at 18:12; Status DC Sertraline HCl (Zoloft) 50 mg DAILY PO Last administered on 06/24/18 10:56; Start 06/20/18 at 09:00; Stop 06/24/18 at 18:42; Status DC Quetiapine Fumarate (SEROquel) 12.5 mg 0900,1700 PO Last administered on at 16:23; Start 06/19/18 at 17:00; Stop 06/22/18 at 16:55; Status DC Levothyroxine Sodium (Synthroid) 88 mcg DAILY06 PO Last administered on at 06:24; Start 06/20/18 at 06:00 Quetiapine Fumarate (SEROquel) 12.5 mg BID92 PO ; Start 06/23/18 at 09:00; Stop 06/23/18 at 09:00; Status DC Quetiapine Fumarate (SEROquel) 25 mg DAILY@1900 PO ; Start 06/22/18 at 19:00; Stop 06/22/18 at 19:00; Status DC Quetiapine Fumarate (SEROquel) 12.5 mg BID@0900,1500 PO Last administered on 06/24/18at 16:33; Start 06/23/18 at 09:00; Stop 06/24/18 at 18:46; Status DC Quetiapine Fumarate (SEROquel) 25 mg STK-MED ONCE .ROUTE ; Start 06/22/18 at 17: 12; Stop 06/22/18 at 17:14; Status DC Quetiapine Fumarate (SEROquel) 12.5 mg DAILY@1900 PO Last administered on at 18:16; Start 06/22/18 at 19:00; Stop 06/24/18 at 18:46; Status DC Rivastigmine Tartrate (Exelon) 1.5 mg DAILY PO Last administered on 06/24/18at 10 :58; Start 06/24/18 at 09:00; Stop 06/24/18 at 14:14; Status DC Rivastigmine Tartrate (Exelon) 3 mg HS PO ; Start 06/23/18 at 21:00; Stop at 21:00; Status DC Rivastigmine Tartrate (Exelon) 3 mg BIDWMEALS PO Last administered on 06/24/18at 10:54; Start 06/23/18 at 17:00; Stop 06/24/18 at 14:14; Status DC Rivastigmine Tartrate (Exelon) 3 mg HS PO ; Start 06/27/18 at 09:00; Stop at 09:00; Status DC Nystatin (Nystop) 1 alan BID TP Last administered on 07/09/18at 20:54; Start 06/23 at 21:00 Mirtazapine (Remeron) 15 mg QHS PO Last administered on 07/08/18at 21:01; Start 06/23/18 at 21:00; Stop 07/09/18 at 17:52; Status DC Nystatin (Nystop) 15 alan STK-MED ONCE TP Last administered on 06/23/18at 19:15; Start 06/23/18 at 19:15; Stop 06/23/18 at 19:17; Status DC Rivastigmine Tartrate (Exelon) 3 mg BID PO Last administered on 07/09/18at 20:50 ; Start 06/24/18 at 21:00 Fluvoxamine Maleate (Luvox) 25 mg QHS PO Last administered on 06/25/18at 19:22; Start 06/24/18 at 21:00; Stop 06/26/18 at 19:00; Status DC Fluvoxamine Maleate (Luvox) 50 mg QHS PO Last administered on 06/30/18at 19:36; Start 06/26/18 at 21:00; Stop 07/01/18 at 20:00; Status DC Quetiapine Fumarate (SEROquel) 25 mg DAILY@1900 PO Last administered on at 18:16; Start 06/24/18 at 19:00 Quetiapine Fumarate (SEROquel) 25 mg BID@0900,1500 PO Last administered on 07/09at 15:02; Start 06/25/18 at 09:00 Bisacodyl (Dulcolax Supp) 10 mg PRN DAILY PRN [place] CONSTIPATION Last administered on 06/27/18at 11:54; Start 06/27/18 at 10:30 Fluvoxamine Maleate (Luvox) 75 mg QHS PO Last administered on 07/09/18at 20:50; Start 07/01/18 at 21:00 Divalproex Sodium (Depakote Sprinkles) 125 mg BID@0900,1700 PO Last administered on 07/09/18at 10:14; Start 06/30/18 at 17:00 Mirtazapine (Remeron) 7.5 mg QHS PO Last administered on 07/09/18at 20:53; Start 07/09/18 at 21:00 Active Scripts Active Reported Tamsulosin Hcl 0.4 Mg Cap.er.24h 0.4 Mg PO DAILY Levothyroxine Sodium 88 Mcg Tablet 88 Mcg PO DAILYAC Escitalopram Oxalate 20 Mg Tablet 20 Mg PO DAILY Rivastigmine (Rivastigmine Tartrate) 1.5 Mg Capsule 1.5 Mg PO BID Namenda Xr (Memantine Hcl) 28 Mg Cap.spr.24 28 Mg PO DAILY I have reviewed the current psychotropics carefully including drug interactions. Risk benefit ratio favors no change other than as noted in my dictated progress note. Diagnosis: Problems: (1) Mental status alteration (2) Anxiety disorder (3) Dementia in Alzheimer's disease with delusions (4) Dementia in Alzheimer's disease with depression (5) Dementia, vascular, with delusions (6) Dementia, vascular, with depression (7) Impulse control disorder MILAN TAYLOR MD Jul 09, 2018 22:46
[2018-07-10 05:57] VITALS: BP 131/68
[2018-07-10] MEDS: LEVOTHYROXINE 88 MCG TABLET PO SCH (06:14)
[2018-07-10] MEDS: QUEtiapine 25 MG TABLET. PO SCH ×3 (08:20→19:26)
[2018-07-10] MEDS: RIVASTIGMINE 3 MG CAPSULE. PO SCH ×2 (08:20→19:24)
[2018-07-10] MEDS: DIVALPROEX 125 MG CAP.SPRINK PO SCH ×2 (08:20→17:08)
[2018-07-10] MEDS: TAMSULOSIN 0.4 MG CAP.ER.24H. PO SCH (08:21)
[2018-07-10] MEDS: NYSTATIN TOPICAL POWDER 15GM BOTTLE. TP SCH (08:21)
[2018-07-10] MEDS: MEMANTINE 10 MG TABLET. PO SCH ×2 (08:21→19:25)
--- NOTE | 2018-07-10 15:46 | PN ---
DATE: 07/08/2018 PSYCHIATRIC PROGRESS NOTE This late entry 07/08/2018 covers elements, not covered in my initial note. SUBJECTIVE: I met with the patient in the evening. The patient slept just under 1 hour previous night, which is quite a change from his previous nights. All night, he was up and down. Per nursing report, received Zyprexa at 9:55 and Tylenol at 11:55. He was in a cardiac chair post-lunch due to impaired ambulation since he did not sleep much previous night. REVIEW OF SYSTEMS: No CV, , pulmonary, eye, ENT system symptoms on review. Reliability poor. MENTAL STATUS EXAM: Oriented to himself. Insight, judgment, recent and remote memory, attention, concentration, fund of knowledge poor, consistent with his diagnosis mentioned in my initial note. IMPRESSION: Major neurocognitive disorder, Alzheimer, vascular with delusion, depression, behavioral disturbance. Rest unchanged. PLAN: No change from initial note. We will monitor sleeping pattern and make further adjustment to assist this depending on his progress. MAN Connie TAYLOR MD DR: NATAN/alfredo JOB#: [id number] / [id number]
[2018-07-10 16:43] VITALS: BP 133/61
[2018-07-10] MEDS: MIRTAZAPINE 7.5 MG TABLET. PO SCH (19:24)
--- NOTE | 2018-07-10 19:30 | PN ---
DATE: 07/09/2018 PSYCHIATRIC PROGRESS NOTE This late entry 07/09/2018 covers elements not covered in my initial note. SUBJECTIVE: I met with the patient in the evening and staffed at a treatment team meeting with the entire team in the morning. The patient sleeps an average of 6 hours, slept 6 hours previous night. Appetite is 70%. He is confused, wandering. One-on-one status has been discontinued. He has been less agitated. REVIEW OF SYSTEMS: No CV, , pulmonary, eye, ENT system symptoms on review. Reliability poor. MENTAL STATUS EXAM: Oriented to himself. Insight, judgment, recent and remote memory, attention, concentration, fund of knowledge poor, consistent with his diagnosis. The marked sedation during the day has been problematic. IMPRESSION: Major neurocognitive disorder, Alzheimer, vascular with delusion, depression, behavioral disturbance; anxiety disorder, unspecified; daytime sedation. PLAN: Starting 07/10/2018. We will hold the Seroquel 25 mg t.i.d. for any dosage that he is sedated during the day and Seroquel was held on 07/09/2018 as well. We will reduce the Remeron from 15 mg at bedtime down to 7.5 mg at bedtime and use the trazodone only as p.r.n. Rest of the psychotropics unchanged for now. MAN Connie TAYLOR MD DR: NATAN/alfredo JOB#: [id number] / [id number]
--- NOTE | 2018-07-10 22:36 | PDOC ---
Exam Note: Justin Note: Please also refer to the separate dictated note~for this date of service dictated separately.~Patient seen individually. Discussed the patient with Nursing staff reviewed the chart.~Reviewed interim history and current functioning. Reviewed vital signs,~Labs/ Radiology~and current medications noted below. Continue current treatment with the changes noted in the dictated addendum note Assessment: Vital Signs: Vital Signs Date Time Temp Pulse Resp B/P (MAP) Pulse Ox O2 Delivery O2 Flow Rate FiO2 07/10/18 16:43 97.2 69 18 133/61 (85) 95 Room Air I&O Intake and Output 07/10/18 07:01 Intake Total 840 ml Balance 840 ml Intake Oral 840 ml # Voids 1 Current Medications: Meds: Current Medications Lorazepam (Ativan) 2 mg 1X ONCE PO Last administered on 06/17/18 19:54; Start 06/17/18 at 20:15; Stop 06/17/18 at 20:16; Status DC Acetaminophen (Tylenol) 650 mg PRN Q6HRS PRN PO PAIN / TEMP Last administered on 07/08/18 11:59; Start 06/17/18 at 21:30 Multi-Ingredient Ointment (Analgesic [place]) 1 alan PRN QID PRN TP MUSCLE PAIN Last administered on 06/24/18 13:11; Start 06/17/18 at 21:30 Al Hydroxide/Mg Hydroxide (Mylanta Plus Xs) 15 ml PRN AFTMEALHC PRN PO DYSPEPSIA Last administered on 07/09/18 17:03; Start 06/17/18 at 21:30 Magnesium Hydroxide (Milk Of Magnesia) 2,400 mg PRN QHS PRN PO CONSTIPATION Last administered on 07/04/18 19:26; Start 06/17/18 at 21:30 Trazodone HCl (Desyrel) 25 mg PRN QHS PRN PO INSOMNIA Last administered on 07/08 21:03; Start 06/17/18 at 21:30 Olanzapine (ZyPREXA ZYDIS) 2.5 mg PRN Q2HR PRN PO PSYCHOSIS Last administered on 07/08/18 09:55; Start 06/17/18 at 21:30 Citalopram Hydrobromide (CeleXA) 40 mg DAILY PO Last administered on 06/19/18 08:09; Start 06/18/18 at 09:00; Stop 06/19/18 at 16:58; Status DC Memantine (Namenda) 10 mg BID PO Last administered on 07/10/18 19:25; Start at 09:00 Rivastigmine Tartrate (Exelon) 1.5 mg BIDWMEALS PO Last administered on 07:47; Start 06/18/18 at 08:00; Stop 06/23/18 at 16:38; Status DC Levothyroxine Sodium (Synthroid) 88 mcg DAILYAC PO Last administered on 08:11; Start 06/18/18 at 07:30; Stop 06/19/18 at 17:40; Status DC Tamsulosin HCl (Flomax) 0.4 mg DAILY PO Last administered on 07/10/18 08:21; Start 06/18/18 at 09:00 Hydroxyzine HCl (Atarax) 25 mg PRN Q2HR PRN PO ANXIETY / AGITATION Last administered on 06/21/18 18:40; Start 06/18/18 at 23:00; Stop 06/21/18 at 20:10; Status DC Carbamide Peroxide (Debrox) 5 drop BID AU Last administered on 06/24/18 11:00; Start 06/19/18 at 21:00; Stop 06/24/18 at 20:59; Status DC Mirtazapine (Remeron) 7.5 mg QHS PO Last administered on 06/22/18 19:17; Start 06/19/18 at 21:00; Stop 06/23/18 at 18:12; Status DC Sertraline HCl (Zoloft) 50 mg DAILY PO Last administered on 06/24/18 10:56; Start 06/20/18 at 09:00; Stop 06/24/18 at 18:42; Status DC Quetiapine Fumarate (SEROquel) 12.5 mg 0900,1700 PO Last administered on 16:23; Start 06/19/18 at 17:00; Stop 06/22/18 at 16:55; Status DC Levothyroxine Sodium (Synthroid) 88 mcg DAILY06 PO Last administered on 1/25/ 19at 06:14; Start 06/20/18 at 06:00 Quetiapine Fumarate (SEROquel) 12.5 mg BID92 PO ; Start 06/23/18 at 09:00; Stop 06/23/18 at 09:00; Status DC Quetiapine Fumarate (SEROquel) 25 mg DAILY@1900 PO ; Start 06/22/18 at 19:00; Stop 06/22/18 at 19:00; Status DC Quetiapine Fumarate (SEROquel) 12.5 mg BID@0900,1500 PO Last administered on 06/24/18at 16:33; Start 06/23/18 at 09:00; Stop 06/24/18 at 18:46; Status DC Quetiapine Fumarate (SEROquel) 25 mg STK-MED ONCE .ROUTE ; Start 06/22/18 at 17: 12; Stop 06/22/18 at 17:14; Status DC Quetiapine Fumarate (SEROquel) 12.5 mg DAILY@1900 PO Last administered on at 18:16; Start 06/22/18 at 19:00; Stop 06/24/18 at 18:46; Status DC Rivastigmine Tartrate (Exelon) 1.5 mg DAILY PO Last administered on 06/24/18at 10 :58; Start 06/24/18 at 09:00; Stop 06/24/18 at 14:14; Status DC Rivastigmine Tartrate (Exelon) 3 mg HS PO ; Start 06/23/18 at 21:00; Stop at 21:00; Status DC Rivastigmine Tartrate (Exelon) 3 mg BIDWMEALS PO Last administered on 06/24/18at 10:54; Start 06/23/18 at 17:00; Stop 06/24/18 at 14:14; Status DC Rivastigmine Tartrate (Exelon) 3 mg HS PO ; Start 06/27/18 at 09:00; Stop at 09:00; Status DC Nystatin (Nystop) 1 alan BID TP Last administered on 07/10/18at 08:21; Start 06/23 at 21:00 Mirtazapine (Remeron) 15 mg QHS PO Last administered on 07/08/18at 21:01; Start 06/23/18 at 21:00; Stop 07/09/18 at 17:52; Status DC Nystatin (Nystop) 15 alan STK-MED ONCE TP Last administered on 06/23/18 19:15; Start 06/23/18 at 19:15; Stop 06/23/18 at 19:17; Status DC Rivastigmine Tartrate (Exelon) 3 mg BID PO Last administered on 07/10/18 19:24 ; Start 06/24/18 at 21:00 Fluvoxamine Maleate (Luvox) 25 mg QHS PO Last administered on 06/25/18 19:22; Start 06/24/18 at 21:00; Stop 06/26/18 at 19:00; Status DC Fluvoxamine Maleate (Luvox) 50 mg QHS PO Last administered on 06/30/18 19:36; Start 06/26/18 at 21:00; Stop 07/01/18 at 20:00; Status DC Quetiapine Fumarate (SEROquel) 25 mg DAILY@1900 PO Last administered on 19:26; Start 06/24/18 at 19:00 Quetiapine Fumarate (SEROquel) 25 mg BID@0900,1500 PO Last administered on 07/10 17:07; Start 06/25/18 at 09:00 Bisacodyl (Dulcolax Supp) 10 mg PRN DAILY PRN [place] CONSTIPATION Last administered on 06/27/18at 11:54; Start 06/27/18 at 10:30 Fluvoxamine Maleate (Luvox) 75 mg QHS PO Last administered on 07/10/18 19:24; Start 07/01/18 at 21:00 Divalproex Sodium (Depakote Sprinkles) 125 mg BID@0900,1700 PO Last administered on 07/10/18 17:08; Start 06/30/18 at 17:00 Mirtazapine (Remeron) 7.5 mg QHS PO Last administered on 07/10/18 19:24; Start 07/09/18 at 21:00 Active Scripts Active Reported Tamsulosin Hcl 0.4 Mg Cap.er.24h 0.4 Mg PO DAILY Levothyroxine Sodium 88 Mcg Tablet 88 Mcg PO DAILYAC Escitalopram Oxalate 20 Mg Tablet 20 Mg PO DAILY Rivastigmine (Rivastigmine Tartrate) 1.5 Mg Capsule 1.5 Mg PO BID Namenda Xr (Memantine Hcl) 28 Mg Cap.spr.24 28 Mg PO DAILY I have reviewed the current psychotropics carefully including drug interactions. Risk benefit ratio favors no change other than as noted in my dictated progress note. Diagnosis: Problems: (1) Mental status alteration (2) Anxiety disorder (3) Dementia in Alzheimer's disease with delusions (4) Dementia in Alzheimer's disease with depression (5) Dementia, vascular, with delusions (6) Dementia, vascular, with depression (7) Impulse control disorder MILAN TAYLOR MD Jul 10, 2018 22:36
[2018-07-11] MEDS: NYSTATIN TOPICAL POWDER 15GM BOTTLE. TP SCH ×3 (02:04→19:18)
[2018-07-11 06:25] VITALS: BP 169/96
[2018-07-11] MEDS: LEVOTHYROXINE 88 MCG TABLET PO SCH (09:10)
[2018-07-11] MEDS: MEMANTINE 10 MG TABLET. PO SCH ×2 (09:10→19:15)
[2018-07-11] MEDS: RIVASTIGMINE 3 MG CAPSULE. PO SCH ×2 (09:10→19:15)
[2018-07-11] MEDS: QUEtiapine 25 MG TABLET. PO SCH ×3 (09:10→19:18)
[2018-07-11] MEDS: TAMSULOSIN 0.4 MG CAP.ER.24H. PO SCH (09:10)
[2018-07-11] MEDS: DIVALPROEX 125 MG CAP.SPRINK PO SCH ×2 (09:10→15:03)
[2018-07-11 15:47] VITALS: BP 140/69
[2018-07-11] MEDS: MIRTAZAPINE 7.5 MG TABLET. PO SCH (19:15)
[2018-07-11] MEDS: MAGNESIUM HYDROXIDE 2,400 MG/30 ML ORAL.SUSP. PO PRN (20:51)
--- NOTE | 2018-07-11 22:14 | PDOC ---
Exam Note: Justin Note: Please also refer to the separate dictated note~for this date of service dictated separately.~Patient seen individually. Discussed the patient with Nursing staff reviewed the chart.~Reviewed interim history and current functioning. Reviewed vital signs,~Labs/ Radiology~and current medications noted below. Continue current treatment with the changes noted in the dictated addendum note Assessment: Vital Signs: Vital Signs Date Time Temp Pulse Resp B/P (MAP) Pulse Ox O2 Delivery O2 Flow Rate FiO2 07/11/18 15:47 97.4 82 18 140/69 (92) 97 07/10/18 16:43 Room Air I&O Intake and Output 07/11/18 07:01 Intake Total 1023 ml Balance 1023 ml Intake Oral 1023 ml Current Medications: Meds: Current Medications Lorazepam (Ativan) 2 mg 1X ONCE PO Last administered on 06/17/18 19:54; Start 06/17/18 at 20:15; Stop 06/17/18 at 20:16; Status DC Acetaminophen (Tylenol) 650 mg PRN Q6HRS PRN PO PAIN / TEMP Last administered on 07/08/18 11:59; Start 06/17/18 at 21:30 Multi-Ingredient Ointment (Analgesic [place]) 1 alan PRN QID PRN TP MUSCLE PAIN Last administered on 06/24/18 13:11; Start 06/17/18 at 21:30 Al Hydroxide/Mg Hydroxide (Mylanta Plus Xs) 15 ml PRN AFTMEALHC PRN PO DYSPEPSIA Last administered on 07/09/18 17:03; Start 06/17/18 at 21:30 Magnesium Hydroxide (Milk Of Magnesia) 2,400 mg PRN QHS PRN PO CONSTIPATION Last administered on 07/11/18 20:51; Start 06/17/18 at 21:30 Trazodone HCl (Desyrel) 25 mg PRN QHS PRN PO INSOMNIA Last administered on 07/08 21:03; Start 06/17/18 at 21:30 Olanzapine (ZyPREXA ZYDIS) 2.5 mg PRN Q2HR PRN PO PSYCHOSIS Last administered on 07/11/18 13:22; Start 06/17/18 at 21:30 Citalopram Hydrobromide (CeleXA) 40 mg DAILY PO Last administered on 06/19/18 08:09; Start 06/18/18 at 09:00; Stop 06/19/18 at 16:58; Status DC Memantine (Namenda) 10 mg BID PO Last administered on 07/11/18 19:15; Start at 09:00 Rivastigmine Tartrate (Exelon) 1.5 mg BIDWMEALS PO Last administered on 07:47; Start 06/18/18 at 08:00; Stop 06/23/18 at 16:38; Status DC Levothyroxine Sodium (Synthroid) 88 mcg DAILYAC PO Last administered on 08:11; Start 06/18/18 at 07:30; Stop 06/19/18 at 17:40; Status DC Tamsulosin HCl (Flomax) 0.4 mg DAILY PO Last administered on 07/11/18 09:10; Start 06/18/18 at 09:00 Hydroxyzine HCl (Atarax) 25 mg PRN Q2HR PRN PO ANXIETY / AGITATION Last administered on 06/21/18 18:40; Start 06/18/18 at 23:00; Stop 06/21/18 at 20:10; Status DC Carbamide Peroxide (Debrox) 5 drop BID AU Last administered on 06/24/18 11:00; Start 06/19/18 at 21:00; Stop 06/24/18 at 20:59; Status DC Mirtazapine (Remeron) 7.5 mg QHS PO Last administered on 06/22/18 19:17; Start 06/19/18 at 21:00; Stop 06/23/18 at 18:12; Status DC Sertraline HCl (Zoloft) 50 mg DAILY PO Last administered on 06/24/18 10:56; Start 06/20/18 at 09:00; Stop 06/24/18 at 18:42; Status DC Quetiapine Fumarate (SEROquel) 12.5 mg 0900,1700 PO Last administered on 16:23; Start 06/19/18 at 17:00; Stop 06/22/18 at 16:55; Status DC Levothyroxine Sodium (Synthroid) 88 mcg DAILY06 PO Last administered on 1/26/ 19at 09:10; Start 06/20/18 at 06:00 Quetiapine Fumarate (SEROquel) 12.5 mg BID92 PO ; Start 06/23/18 at 09:00; Stop 06/23/18 at 09:00; Status DC Quetiapine Fumarate (SEROquel) 25 mg DAILY@1900 PO ; Start 06/22/18 at 19:00; Stop 06/22/18 at 19:00; Status DC Quetiapine Fumarate (SEROquel) 12.5 mg BID@0900,1500 PO Last administered on 06/24/18at 16:33; Start 06/23/18 at 09:00; Stop 06/24/18 at 18:46; Status DC Quetiapine Fumarate (SEROquel) 25 mg STK-MED ONCE .ROUTE ; Start 06/22/18 at 17: 12; Stop 06/22/18 at 17:14; Status DC Quetiapine Fumarate (SEROquel) 12.5 mg DAILY@1900 PO Last administered on at 18:16; Start 06/22/18 at 19:00; Stop 06/24/18 at 18:46; Status DC Rivastigmine Tartrate (Exelon) 1.5 mg DAILY PO Last administered on 06/24/18at 10 :58; Start 06/24/18 at 09:00; Stop 06/24/18 at 14:14; Status DC Rivastigmine Tartrate (Exelon) 3 mg HS PO ; Start 06/23/18 at 21:00; Stop at 21:00; Status DC Rivastigmine Tartrate (Exelon) 3 mg BIDWMEALS PO Last administered on 06/24/18at 10:54; Start 06/23/18 at 17:00; Stop 06/24/18 at 14:14; Status DC Rivastigmine Tartrate (Exelon) 3 mg HS PO ; Start 06/27/18 at 09:00; Stop at 09:00; Status DC Nystatin (Nystop) 1 alan BID TP Last administered on 07/11/18at 19:18; Start 06/23 at 21:00 Mirtazapine (Remeron) 15 mg QHS PO Last administered on 07/08/18 21:01; Start 06/23/18 at 21:00; Stop 07/09/18 at 17:52; Status DC Nystatin (Nystop) 15 alan STK-MED ONCE TP Last administered on 06/23/18 19:15; Start 06/23/18 at 19:15; Stop 06/23/18 at 19:17; Status DC Rivastigmine Tartrate (Exelon) 3 mg BID PO Last administered on 07/11/18 19:15 ; Start 06/24/18 at 21:00 Fluvoxamine Maleate (Luvox) 25 mg QHS PO Last administered on 06/25/18 19:22; Start 06/24/18 at 21:00; Stop 06/26/18 at 19:00; Status DC Fluvoxamine Maleate (Luvox) 50 mg QHS PO Last administered on 06/30/18 19:36; Start 06/26/18 at 21:00; Stop 07/01/18 at 20:00; Status DC Quetiapine Fumarate (SEROquel) 25 mg DAILY@1900 PO Last administered on 19:18; Start 06/24/18 at 19:00 Quetiapine Fumarate (SEROquel) 25 mg BID@0900,1500 PO Last administered on 07/11 15:03; Start 06/25/18 at 09:00 Bisacodyl (Dulcolax Supp) 10 mg PRN DAILY PRN [place] CONSTIPATION Last administered on 06/27/18at 11:54; Start 06/27/18 at 10:30 Fluvoxamine Maleate (Luvox) 75 mg QHS PO Last administered on 07/11/18 19:15; Start 07/01/18 at 21:00 Divalproex Sodium (Depakote Sprinkles) 125 mg BID@0900,1700 PO Last administered on 07/11/18 15:03; Start 06/30/18 at 17:00 Mirtazapine (Remeron) 7.5 mg QHS PO Last administered on 07/11/18 19:15; Start 07/09/18 at 21:00 Active Scripts Active Reported Tamsulosin Hcl 0.4 Mg Cap.er.24h 0.4 Mg PO DAILY Levothyroxine Sodium 88 Mcg Tablet 88 Mcg PO DAILYAC Escitalopram Oxalate 20 Mg Tablet 20 Mg PO DAILY Rivastigmine (Rivastigmine Tartrate) 1.5 Mg Capsule 1.5 Mg PO BID Namenda Xr (Memantine Hcl) 28 Mg Cap.spr.24 28 Mg PO DAILY I have reviewed the current psychotropics carefully including drug interactions. Risk benefit ratio favors no change other than as noted in my dictated progress note. Diagnosis: Problems: (1) Mental status alteration (2) Anxiety disorder (3) Dementia in Alzheimer's disease with delusions (4) Dementia in Alzheimer's disease with depression (5) Dementia, vascular, with delusions (6) Dementia, vascular, with depression (7) Impulse control disorder MILAN TAYLOR MD Jul 11, 2018 22:14
--- NOTE | 2018-07-12 05:14 | PN ---
DATE: 07/10/2018 PSYCHIATRIC PROGRESS NOTE This is a late entry for 07/10/2018, covers elements not covered in my initial note. SUBJECTIVE: I met with the patient in the evening. The patient slept 6-3/4 hours previous night. Takes his medications crushed. He has not been aggressive. REVIEW OF SYSTEMS: No CV, , pulmonary, eye, ENT system symptoms on review. Reliability poor. MENTAL STATUS EXAM: Oriented to himself. Insight, judgment, recent and remote memory, attention, concentration, fund of knowledge poor, consistent with his diagnosis. LABORATORY DATA: Reviewed. IMPRESSION: Major neurocognitive disorder, Alzheimer, vascular with delusion, depression, behavioral disturbance; anxiety disorder, unspecified; impulse control disorder, unspecified. Rest unchanged from initial note. PLAN: No change from initial note. We will persevere with his current psychotropics. Daytime sedation slightly better and we will hold Seroquel if over sedation persists. MILAN TAYLOR MD DR: NATAN/alfredo JOB#: [id number] / [id number]
[2018-07-12 05:51] VITALS: BP 133/71
[2018-07-12] MEDS: LEVOTHYROXINE 88 MCG TABLET PO SCH (06:07)
[2018-07-12] MEDS: TAMSULOSIN 0.4 MG CAP.ER.24H. PO SCH (07:44)
[2018-07-12] MEDS: MEMANTINE 10 MG TABLET. PO SCH ×2 (07:44→19:52)
[2018-07-12] MEDS: QUEtiapine 25 MG TABLET. PO SCH ×3 (07:44→18:08)
[2018-07-12] MEDS: NYSTATIN TOPICAL POWDER 15GM BOTTLE. TP SCH ×2 (07:44→19:53)
[2018-07-12] MEDS: DIVALPROEX 125 MG CAP.SPRINK PO SCH ×2 (07:44→18:09)
[2018-07-12] MEDS: RIVASTIGMINE 3 MG CAPSULE. PO SCH ×2 (07:44→19:52)
[2018-07-12 16:10] VITALS: BP 154/83
[2018-07-12] MEDS: MIRTAZAPINE 7.5 MG TABLET. PO SCH (19:52)
--- NOTE | 2018-07-12 22:53 | PDOC ---
Exam Note: Justin Note: Please also refer to the separate dictated note~for this date of service dictated separately.~Patient seen individually. Discussed the patient with Nursing staff reviewed the chart.~Reviewed interim history and current functioning. Reviewed vital signs,~Labs/ Radiology~and current medications noted below. Continue current treatment with the changes noted in the dictated addendum note Assessment: Vital Signs: Vital Signs Date Time Temp Pulse Resp B/P (MAP) Pulse Ox O2 Delivery O2 Flow Rate FiO2 07/12/18 16:10 98.0 62 18 154/83 (106) 97 07/10/18 16:43 Room Air I&O Intake and Output 07/12/18 07:01 Intake Total 840 ml Balance 840 ml Intake Oral 840 ml # Voids 1 Current Medications: Meds: Current Medications Lorazepam (Ativan) 2 mg 1X ONCE PO Last administered on 06/17/18 19:54; Start 06/17/18 at 20:15; Stop 06/17/18 at 20:16; Status DC Acetaminophen (Tylenol) 650 mg PRN Q6HRS PRN PO PAIN / TEMP Last administered on 07/08/18 11:59; Start 06/17/18 at 21:30 Multi-Ingredient Ointment (Analgesic [place]) 1 alan PRN QID PRN TP MUSCLE PAIN Last administered on 06/24/18 13:11; Start 06/17/18 at 21:30 Al Hydroxide/Mg Hydroxide (Mylanta Plus Xs) 15 ml PRN AFTMEALHC PRN PO DYSPEPSIA Last administered on 07/09/18 17:03; Start 06/17/18 at 21:30 Magnesium Hydroxide (Milk Of Magnesia) 2,400 mg PRN QHS PRN PO CONSTIPATION Last administered on 07/11/18 20:51; Start 06/17/18 at 21:30 Trazodone HCl (Desyrel) 25 mg PRN QHS PRN PO INSOMNIA Last administered on 07/08 21:03; Start 06/17/18 at 21:30 Olanzapine (ZyPREXA ZYDIS) 2.5 mg PRN Q2HR PRN PO PSYCHOSIS Last administered on 07/11/18 13:22; Start 06/17/18 at 21:30 Citalopram Hydrobromide (CeleXA) 40 mg DAILY PO Last administered on 06/19/18 08:09; Start 06/18/18 at 09:00; Stop 06/19/18 at 16:58; Status DC Memantine (Namenda) 10 mg BID PO Last administered on 07/12/18at 19:52; Start at 09:00 Rivastigmine Tartrate (Exelon) 1.5 mg BIDWMEALS PO Last administered on at 07:47; Start 06/18/18 at 08:00; Stop 06/23/18 at 16:38; Status DC Levothyroxine Sodium (Synthroid) 88 mcg DAILYAC PO Last administered on 08:11; Start 06/18/18 at 07:30; Stop 06/19/18 at 17:40; Status DC Tamsulosin HCl (Flomax) 0.4 mg DAILY PO Last administered on 07/12/18at 07:44; Start 06/18/18 at 09:00 Hydroxyzine HCl (Atarax) 25 mg PRN Q2HR PRN PO ANXIETY / AGITATION Last administered on 06/21/18at 18:40; Start 06/18/18 at 23:00; Stop 06/21/18 at 20:10; Status DC Carbamide Peroxide (Debrox) 5 drop BID AU Last administered on 06/24/18at 11:00; Start 06/19/18 at 21:00; Stop 06/24/18 at 20:59; Status DC Mirtazapine (Remeron) 7.5 mg QHS PO Last administered on 06/22/18at 19:17; Start 06/19/18 at 21:00; Stop 06/23/18 at 18:12; Status DC Sertraline HCl (Zoloft) 50 mg DAILY PO Last administered on 06/24/18at 10:56; Start 06/20/18 at 09:00; Stop 06/24/18 at 18:42; Status DC Quetiapine Fumarate (SEROquel) 12.5 mg 0900,1700 PO Last administered on 16:23; Start 06/19/18 at 17:00; Stop 06/22/18 at 16:55; Status DC Levothyroxine Sodium (Synthroid) 88 mcg DAILY06 PO Last administered on at 06:07; Start 06/20/18 at 06:00 Quetiapine Fumarate (SEROquel) 12.5 mg BID92 PO ; Start 06/23/18 at 09:00; Stop 06/23/18 at 09:00; Status DC Quetiapine Fumarate (SEROquel) 25 mg DAILY@1900 PO ; Start 06/22/18 at 19:00; Stop 06/22/18 at 19:00; Status DC Quetiapine Fumarate (SEROquel) 12.5 mg BID@0900,1500 PO Last administered on 06/24/18at 16:33; Start 06/23/18 at 09:00; Stop 06/24/18 at 18:46; Status DC Quetiapine Fumarate (SEROquel) 25 mg STK-MED ONCE .ROUTE ; Start 06/22/18 at 17: 12; Stop 06/22/18 at 17:14; Status DC Quetiapine Fumarate (SEROquel) 12.5 mg DAILY@1900 PO Last administered on at 18:16; Start 06/22/18 at 19:00; Stop 06/24/18 at 18:46; Status DC Rivastigmine Tartrate (Exelon) 1.5 mg DAILY PO Last administered on 06/24/18at 10 :58; Start 06/24/18 at 09:00; Stop 06/24/18 at 14:14; Status DC Rivastigmine Tartrate (Exelon) 3 mg HS PO ; Start 06/23/18 at 21:00; Stop at 21:00; Status DC Rivastigmine Tartrate (Exelon) 3 mg BIDWMEALS PO Last administered on 06/24/18at 10:54; Start 06/23/18 at 17:00; Stop 06/24/18 at 14:14; Status DC Rivastigmine Tartrate (Exelon) 3 mg HS PO ; Start 06/27/18 at 09:00; Stop at 09:00; Status DC Nystatin (Nystop) 1 alan BID TP Last administered on 07/12/18at 19:53; Start 06/23 at 21:00 Mirtazapine (Remeron) 15 mg QHS PO Last administered on 07/08/18 21:01; Start 06/23/18 at 21:00; Stop 07/09/18 at 17:52; Status DC Nystatin (Nystop) 15 alan STK-MED ONCE TP Last administered on 06/23/18at 19:15; Start 06/23/18 at 19:15; Stop 06/23/18 at 19:17; Status DC Rivastigmine Tartrate (Exelon) 3 mg BID PO Last administered on 07/12/18 19:52 ; Start 06/24/18 at 21:00 Fluvoxamine Maleate (Luvox) 25 mg QHS PO Last administered on 06/25/18at 19:22; Start 06/24/18 at 21:00; Stop 06/26/18 at 19:00; Status DC Fluvoxamine Maleate (Luvox) 50 mg QHS PO Last administered on 06/30/18at 19:36; Start 06/26/18 at 21:00; Stop 07/01/18 at 20:00; Status DC Quetiapine Fumarate (SEROquel) 25 mg DAILY@1900 PO Last administered on 18:08; Start 06/24/18 at 19:00 Quetiapine Fumarate (SEROquel) 25 mg BID@0900,1500 PO Last administered on 07/12 15:00; Start 06/25/18 at 09:00 Bisacodyl (Dulcolax Supp) 10 mg PRN DAILY PRN [place] CONSTIPATION Last administered on 06/27/18at 11:54; Start 06/27/18 at 10:30 Fluvoxamine Maleate (Luvox) 75 mg QHS PO Last administered on 07/12/18 19:52; Start 07/01/18 at 21:00 Divalproex Sodium (Depakote Sprinkles) 125 mg BID@0900,1700 PO Last administered on 07/12/18 18:09; Start 06/30/18 at 17:00 Mirtazapine (Remeron) 7.5 mg QHS PO Last administered on 07/12/18 19:52; Start 07/09/18 at 21:00 Active Scripts Active Reported Tamsulosin Hcl 0.4 Mg Cap.er.24h 0.4 Mg PO DAILY Levothyroxine Sodium 88 Mcg Tablet 88 Mcg PO DAILYAC Escitalopram Oxalate 20 Mg Tablet 20 Mg PO DAILY Rivastigmine (Rivastigmine Tartrate) 1.5 Mg Capsule 1.5 Mg PO BID Namenda Xr (Memantine Hcl) 28 Mg Cap.spr.24 28 Mg PO DAILY I have reviewed the current psychotropics carefully including drug interactions. Risk benefit ratio favors no change other than as noted in my dictated progress note. Diagnosis: Problems: (1) Mental status alteration (2) Anxiety disorder (3) Dementia in Alzheimer's disease with delusions (4) Dementia in Alzheimer's disease with depression (5) Dementia, vascular, with delusions (6) Dementia, vascular, with depression (7) Impulse control disorder MILAN TAYLOR MD Jul 12, 2018 22:53
[2018-07-13 06:15] VITALS: BP 125/68
[2018-07-13] MEDS: LEVOTHYROXINE 88 MCG TABLET PO SCH (06:34)
[2018-07-13] MEDS: QUEtiapine 25 MG TABLET. PO SCH ×3 (07:55→19:16)
[2018-07-13] MEDS: NYSTATIN TOPICAL POWDER 15GM BOTTLE. TP SCH ×2 (07:55→19:16)
[2018-07-13] MEDS: DIVALPROEX 125 MG CAP.SPRINK PO SCH ×2 (07:55→15:21)
[2018-07-13] MEDS: MEMANTINE 10 MG TABLET. PO SCH ×2 (07:55→19:16)
[2018-07-13] MEDS: TAMSULOSIN 0.4 MG CAP.ER.24H. PO SCH (07:55)
[2018-07-13] MEDS: RIVASTIGMINE 3 MG CAPSULE. PO SCH ×2 (07:55→19:16)
[2018-07-13 15:41] VITALS: BP 124/73
[2018-07-13] MEDS: MIRTAZAPINE 7.5 MG TABLET. PO SCH (19:16)
--- NOTE | 2018-07-13 21:28 | PN ---
DATE: 07/12/2018 This is a late entry for 07/12/2018 covers elements not covered in my initial note. SUBJECTIVE: I met with the patient in the evening. The patient slept 7-1/4 hours previous night. His son visited him in the afternoon and his visited as well and they were pleased with his progress. He has been more redirectable, certainly very confused. I did return a call from the patient's and updated her on the patient's progress. She is working with her elder care mergers and acquisitions attorney for separation of Division of Assets, so that he can have long-term placement options since they do not have long-term insurance. Discussed his diagnosis, medications and prognosis. REVIEW OF SYSTEMS: No CV, , pulmonary, eye, ENT system symptoms on review. Reliability poor. MENTAL STATUS EXAM: Oriented to himself. Insight, judgment, recent and remote memory, attention, concentration, fund of knowledge poor, consistent with his diagnosis. IMPRESSION: Major neurocognitive disorder, Alzheimer, vascular with delusion, depression, behavioral disturbance; anxiety disorder, unspecified; impulse control disorder, unspecified. PLAN: Continue current psychotropics including Depakote, Exelon tablets, Namenda, Luvox scheduled Seroquel, Remeron and trazodone p.r.n. along with Zyprexa p.r.n. MAN Connie TAYLOR MD DR: NATAN/alfredo JOB#: [id number] / [id number]
--- NOTE | 2018-07-13 22:18 | PN ---
DATE: 07/11/2018 This is a late entry for 07/11/2018 covers elements not covered in my initial note. SUBJECTIVE: I met with the patient in the evening. The patient slept 5-3/4 hours previous night. He was cooperative in the morning, slept in late, but by the evening, he was quite agitated, yelling, combative, received Zyprexa and then did better after that. I met with him later in the evening. REVIEW OF SYSTEMS: No CV, , pulmonary, eye, ENT system symptoms on review. Reliability poor. MENTAL STATUS EXAM: Oriented to himself. Insight, judgment, recent and remote memory, attention, concentration, fund of knowledge poor, consistent with his diagnosis. IMPRESSION: Major neurocognitive disorder, Alzheimer, vascular with delusion, depression, behavioral disturbance. Rest unchanged. PLAN: No change from initial note. Maintain Depakote, Exelon tablets, Namenda, Luvox, trazodone, along with Remeron 7.5 at bedtime. MAN Connie TAYLOR MD DR: NATAN/alfredo JOB#: [id number] / [id number]
--- NOTE | 2018-07-13 22:48 | PDOC ---
Exam Note: Justin Note: Please also refer to the separate dictated note~for this date of service dictated separately.~Patient seen individually. Discussed the patient with Nursing staff reviewed the chart.~Reviewed interim history and current functioning. Reviewed vital signs,~Labs/ Radiology~and current medications noted below. Continue current treatment with the changes noted in the dictated addendum note Assessment: Vital Signs: Vital Signs Date Time Temp Pulse Resp B/P (MAP) Pulse Ox O2 Delivery O2 Flow Rate FiO2 07/13/18 15:41 98.6 70 18 124/73 (90) 98 07/13/18 06:15 Room Air I&O Intake and Output 07/13/18 07:01 Intake Total 720 ml Balance 720 ml Intake Oral 720 ml Current Medications: Meds: Current Medications Lorazepam (Ativan) 2 mg 1X ONCE PO Last administered on 06/17/18 19:54; Start 06/17/18 at 20:15; Stop 06/17/18 at 20:16; Status DC Acetaminophen (Tylenol) 650 mg PRN Q6HRS PRN PO PAIN / TEMP Last administered on 07/08/18 11:59; Start 06/17/18 at 21:30 Multi-Ingredient Ointment (Analgesic [place]) 1 alan PRN QID PRN TP MUSCLE PAIN Last administered on 06/24/18 13:11; Start 06/17/18 at 21:30 Al Hydroxide/Mg Hydroxide (Mylanta Plus Xs) 15 ml PRN AFTMEALHC PRN PO DYSPEPSIA Last administered on 07/09/18 17:03; Start 06/17/18 at 21:30 Magnesium Hydroxide (Milk Of Magnesia) 2,400 mg PRN QHS PRN PO CONSTIPATION Last administered on 07/11/18 20:51; Start 06/17/18 at 21:30 Trazodone HCl (Desyrel) 25 mg PRN QHS PRN PO INSOMNIA Last administered on 07/08 21:03; Start 06/17/18 at 21:30 Olanzapine (ZyPREXA ZYDIS) 2.5 mg PRN Q2HR PRN PO PSYCHOSIS Last administered on 07/13/18 17:05; Start 06/17/18 at 21:30 Citalopram Hydrobromide (CeleXA) 40 mg DAILY PO Last administered on 06/19/18 08:09; Start 06/18/18 at 09:00; Stop 06/19/18 at 16:58; Status DC Memantine (Namenda) 10 mg BID PO Last administered on 07/13/18 19:16; Start at 09:00 Rivastigmine Tartrate (Exelon) 1.5 mg BIDWMEALS PO Last administered on 07:47; Start 06/18/18 at 08:00; Stop 06/23/18 at 16:38; Status DC Levothyroxine Sodium (Synthroid) 88 mcg DAILYAC PO Last administered on 08:11; Start 06/18/18 at 07:30; Stop 06/19/18 at 17:40; Status DC Tamsulosin HCl (Flomax) 0.4 mg DAILY PO Last administered on 07/13/18 07:55; Start 06/18/18 at 09:00 Hydroxyzine HCl (Atarax) 25 mg PRN Q2HR PRN PO ANXIETY / AGITATION Last administered on 06/21/18 18:40; Start 06/18/18 at 23:00; Stop 06/21/18 at 20:10; Status DC Carbamide Peroxide (Debrox) 5 drop BID AU Last administered on 06/24/18 11:00; Start 06/19/18 at 21:00; Stop 06/24/18 at 20:59; Status DC Mirtazapine (Remeron) 7.5 mg QHS PO Last administered on 06/22/18 19:17; Start 06/19/18 at 21:00; Stop 06/23/18 at 18:12; Status DC Sertraline HCl (Zoloft) 50 mg DAILY PO Last administered on 06/24/18 10:56; Start 06/20/18 at 09:00; Stop 06/24/18 at 18:42; Status DC Quetiapine Fumarate (SEROquel) 12.5 mg 0900,1700 PO Last administered on 16:23; Start 06/19/18 at 17:00; Stop 06/22/18 at 16:55; Status DC Levothyroxine Sodium (Synthroid) 88 mcg DAILY06 PO Last administered on 1/28/ 19at 06:34; Start 06/20/18 at 06:00 Quetiapine Fumarate (SEROquel) 12.5 mg BID92 PO ; Start 06/23/18 at 09:00; Stop 06/23/18 at 09:00; Status DC Quetiapine Fumarate (SEROquel) 25 mg DAILY@1900 PO ; Start 06/22/18 at 19:00; Stop 06/22/18 at 19:00; Status DC Quetiapine Fumarate (SEROquel) 12.5 mg BID@0900,1500 PO Last administered on 06/24/18at 16:33; Start 06/23/18 at 09:00; Stop 06/24/18 at 18:46; Status DC Quetiapine Fumarate (SEROquel) 25 mg STK-MED ONCE .ROUTE ; Start 06/22/18 at 17: 12; Stop 06/22/18 at 17:14; Status DC Quetiapine Fumarate (SEROquel) 12.5 mg DAILY@1900 PO Last administered on at 18:16; Start 06/22/18 at 19:00; Stop 06/24/18 at 18:46; Status DC Rivastigmine Tartrate (Exelon) 1.5 mg DAILY PO Last administered on 06/24/18at 10 :58; Start 06/24/18 at 09:00; Stop 06/24/18 at 14:14; Status DC Rivastigmine Tartrate (Exelon) 3 mg HS PO ; Start 06/23/18 at 21:00; Stop at 21:00; Status DC Rivastigmine Tartrate (Exelon) 3 mg BIDWMEALS PO Last administered on 06/24/18at 10:54; Start 06/23/18 at 17:00; Stop 06/24/18 at 14:14; Status DC Rivastigmine Tartrate (Exelon) 3 mg HS PO ; Start 06/27/18 at 09:00; Stop at 09:00; Status DC Nystatin (Nystop) 1 alan BID TP Last administered on 07/13/18at 19:16; Start 06/23 at 21:00 Mirtazapine (Remeron) 15 mg QHS PO Last administered on 07/08/18at 21:01; Start 06/23/18 at 21:00; Stop 07/09/18 at 17:52; Status DC Nystatin (Nystop) 15 alan STK-MED ONCE TP Last administered on 06/23/18 19:15; Start 06/23/18 at 19:15; Stop 06/23/18 at 19:17; Status DC Rivastigmine Tartrate (Exelon) 3 mg BID PO Last administered on 07/13/18 19:16 ; Start 06/24/18 at 21:00 Fluvoxamine Maleate (Luvox) 25 mg QHS PO Last administered on 06/25/18at 19:22; Start 06/24/18 at 21:00; Stop 06/26/18 at 19:00; Status DC Fluvoxamine Maleate (Luvox) 50 mg QHS PO Last administered on 06/30/18at 19:36; Start 06/26/18 at 21:00; Stop 07/01/18 at 20:00; Status DC Quetiapine Fumarate (SEROquel) 25 mg DAILY@1900 PO Last administered on 19:16; Start 06/24/18 at 19:00 Quetiapine Fumarate (SEROquel) 25 mg BID@0900,1500 PO Last administered on 07/13at 15:21; Start 06/25/18 at 09:00 Bisacodyl (Dulcolax Supp) 10 mg PRN DAILY PRN [place] CONSTIPATION Last administered on 06/27/18at 11:54; Start 06/27/18 at 10:30 Fluvoxamine Maleate (Luvox) 75 mg QHS PO Last administered on 07/13/18 19:16; Start 07/01/18 at 21:00; Stop 07/13/18 at 19:43; Status DC Divalproex Sodium (Depakote Sprinkles) 125 mg BID@0900,1700 PO Last administered on 07/13/18at 15:21; Start 06/30/18 at 17:00 Mirtazapine (Remeron) 7.5 mg QHS PO Last administered on 07/13/18 19:16; Start 07/09/18 at 21:00 Fluvoxamine Maleate (Luvox) 100 mg QHS PO Last administered on 07/13/18at 19:58 ; Start 07/13/18 at 21:00 Active Scripts Active Reported Tamsulosin Hcl 0.4 Mg Cap.er.24h 0.4 Mg PO DAILY Levothyroxine Sodium 88 Mcg Tablet 88 Mcg PO DAILYAC Escitalopram Oxalate 20 Mg Tablet 20 Mg PO DAILY Rivastigmine (Rivastigmine Tartrate) 1.5 Mg Capsule 1.5 Mg PO BID Namenda Xr (Memantine Hcl) 28 Mg Cap.spr.24 28 Mg PO DAILY I have reviewed the current psychotropics carefully including drug interactions. Risk benefit ratio favors no change other than as noted in my dictated progress note. Diagnosis: Problems: (1) Mental status alteration (2) Anxiety disorder (3) Dementia in Alzheimer's disease with delusions (4) Dementia in Alzheimer's disease with depression (5) Dementia, vascular, with delusions (6) Dementia, vascular, with depression (7) Impulse control disorder MILAN TAYLOR MD Jul 13, 2018 22:48
[2018-07-14] MEDS: LEVOTHYROXINE 88 MCG TABLET PO SCH (05:48)
[2018-07-14 06:20] VITALS: BP 135/73
[2018-07-14] MEDS: RIVASTIGMINE 3 MG CAPSULE. PO SCH ×2 (10:27→20:56)
[2018-07-14] MEDS: MEMANTINE 10 MG TABLET. PO SCH ×2 (10:27→20:56)
[2018-07-14] MEDS: TAMSULOSIN 0.4 MG CAP.ER.24H. PO SCH (10:27)
[2018-07-14] MEDS: DIVALPROEX 125 MG CAP.SPRINK PO SCH ×2 (10:27→16:49)
[2018-07-14] MEDS: QUEtiapine 25 MG TABLET. PO SCH ×3 (10:27→20:58)
[2018-07-14] MEDS: NYSTATIN TOPICAL POWDER 15GM BOTTLE. TP SCH ×2 (10:27→20:58)
[2018-07-14 16:10] VITALS: BP 126/61
[2018-07-14] MEDS: MIRTAZAPINE 7.5 MG TABLET. PO SCH (20:56)
--- NOTE | 2018-07-14 22:21 | PN ---
DATE: 07/13/2018 PSYCHIATRIC PROGRESS NOTE This late entry 07/13/2018 covers elements not covered in my initial note. SUBJECTIVE: I met with the patient in the evening. The patient slept 6-1/2 hours previous night. He is compliant with medications, confused, takes meds with chocolate pudding in a spoon. He is sexually inappropriate with certain female staff members, but redirects. Quite disorganized, resistive to his p.m. medications. Slept 6-1/2 hours. REVIEW OF SYSTEMS: No CV, , pulmonary, eye, ENT system symptoms on review. Reliability poor. MENTAL STATUS EXAM: Oriented to himself. Insight, judgment, recent and remote memory, attention, concentration, fund of knowledge poor, consistent with his diagnosis. IMPRESSION: Major neurocognitive disorder, Alzheimer, vascular with delusion, depression, behavioral disturbance. Rest unchanged. PLAN: No change from initial note, but the patient is on Luvox 75 mg a day. We will increase it to 100 mg a day in increments. MAN Connie TAYLOR MD DR: NATAN/alfredo JOB#: [id number] / [id number]
--- NOTE | 2018-07-14 22:42 | PDOC ---
Exam Note: Justin Note: Please also refer to the separate dictated note~for this date of service dictated separately.~Patient seen individually. Discussed the patient with Nursing staff reviewed the chart.~Reviewed interim history and current functioning. Reviewed vital signs,~Labs/ Radiology~and current medications noted below. Continue current treatment with the changes noted in the dictated addendum note Assessment: Vital Signs: Vital Signs Date Time Temp Pulse Resp B/P (MAP) Pulse Ox O2 Delivery O2 Flow Rate FiO2 07/14/18 16:10 97.3 70 20 126/61 (82) 96 Room Air I&O Intake and Output 07/14/18 07:01 Intake Total 440 ml Balance 440 ml Intake Oral 440 ml Current Medications: Meds: Current Medications Lorazepam (Ativan) 2 mg 1X ONCE PO Last administered on 06/17/18 19:54; Start 06/17/18 at 20:15; Stop 06/17/18 at 20:16; Status DC Acetaminophen (Tylenol) 650 mg PRN Q6HRS PRN PO PAIN / TEMP Last administered on 07/08/18 11:59; Start 06/17/18 at 21:30 Multi-Ingredient Ointment (Analgesic [place]) 1 alan PRN QID PRN TP MUSCLE PAIN Last administered on 06/24/18 13:11; Start 06/17/18 at 21:30 Al Hydroxide/Mg Hydroxide (Mylanta Plus Xs) 15 ml PRN AFTMEALHC PRN PO DYSPEPSIA Last administered on 07/09/18 17:03; Start 06/17/18 at 21:30 Magnesium Hydroxide (Milk Of Magnesia) 2,400 mg PRN QHS PRN PO CONSTIPATION Last administered on 07/11/18 20:51; Start 06/17/18 at 21:30 Trazodone HCl (Desyrel) 25 mg PRN QHS PRN PO INSOMNIA Last administered on 07/08 21:03; Start 06/17/18 at 21:30 Olanzapine (ZyPREXA ZYDIS) 2.5 mg PRN Q2HR PRN PO PSYCHOSIS Last administered on 07/13/18 17:05; Start 06/17/18 at 21:30 Citalopram Hydrobromide (CeleXA) 40 mg DAILY PO Last administered on 06/19/18 08:09; Start 06/18/18 at 09:00; Stop 06/19/18 at 16:58; Status DC Memantine (Namenda) 10 mg BID PO Last administered on 07/14/18 20:56; Start at 09:00 Rivastigmine Tartrate (Exelon) 1.5 mg BIDWMEALS PO Last administered on 07:47; Start 06/18/18 at 08:00; Stop 06/23/18 at 16:38; Status DC Levothyroxine Sodium (Synthroid) 88 mcg DAILYAC PO Last administered on 08:11; Start 06/18/18 at 07:30; Stop 06/19/18 at 17:40; Status DC Tamsulosin HCl (Flomax) 0.4 mg DAILY PO Last administered on 07/14/18 10:27; Start 06/18/18 at 09:00 Hydroxyzine HCl (Atarax) 25 mg PRN Q2HR PRN PO ANXIETY / AGITATION Last administered on 06/21/18 18:40; Start 06/18/18 at 23:00; Stop 06/21/18 at 20:10; Status DC Carbamide Peroxide (Debrox) 5 drop BID AU Last administered on 06/24/18 11:00; Start 06/19/18 at 21:00; Stop 06/24/18 at 20:59; Status DC Mirtazapine (Remeron) 7.5 mg QHS PO Last administered on 06/22/18 19:17; Start 06/19/18 at 21:00; Stop 06/23/18 at 18:12; Status DC Sertraline HCl (Zoloft) 50 mg DAILY PO Last administered on 06/24/18 10:56; Start 06/20/18 at 09:00; Stop 06/24/18 at 18:42; Status DC Quetiapine Fumarate (SEROquel) 12.5 mg 0900,1700 PO Last administered on 16:23; Start 06/19/18 at 17:00; Stop 06/22/18 at 16:55; Status DC Levothyroxine Sodium (Synthroid) 88 mcg DAILY06 PO Last administered on at 05:48; Start 06/20/18 at 06:00 Quetiapine Fumarate (SEROquel) 12.5 mg BID92 PO ; Start 06/23/18 at 09:00; Stop 06/23/18 at 09:00; Status DC Quetiapine Fumarate (SEROquel) 25 mg DAILY@1900 PO ; Start 06/22/18 at 19:00; Stop 06/22/18 at 19:00; Status DC Quetiapine Fumarate (SEROquel) 12.5 mg BID@0900,1500 PO Last administered on 06/24/18at 16:33; Start 06/23/18 at 09:00; Stop 06/24/18 at 18:46; Status DC Quetiapine Fumarate (SEROquel) 25 mg STK-MED ONCE .ROUTE ; Start 06/22/18 at 17: 12; Stop 06/22/18 at 17:14; Status DC Quetiapine Fumarate (SEROquel) 12.5 mg DAILY@1900 PO Last administered on at 18:16; Start 06/22/18 at 19:00; Stop 06/24/18 at 18:46; Status DC Rivastigmine Tartrate (Exelon) 1.5 mg DAILY PO Last administered on 06/24/18at 10 :58; Start 06/24/18 at 09:00; Stop 06/24/18 at 14:14; Status DC Rivastigmine Tartrate (Exelon) 3 mg HS PO ; Start 06/23/18 at 21:00; Stop at 21:00; Status DC Rivastigmine Tartrate (Exelon) 3 mg BIDWMEALS PO Last administered on 06/24/18at 10:54; Start 06/23/18 at 17:00; Stop 06/24/18 at 14:14; Status DC Rivastigmine Tartrate (Exelon) 3 mg HS PO ; Start 06/27/18 at 09:00; Stop at 09:00; Status DC Nystatin (Nystop) 1 alan BID TP Last administered on 07/14/18at 20:58; Start 06/23 at 21:00; Stop 07/14/18 at 21:27; Status DC Mirtazapine (Remeron) 15 mg QHS PO Last administered on 07/08/18 21:01; Start 06/23/18 at 21:00; Stop 07/09/18 at 17:52; Status DC Nystatin (Nystop) 15 alan STK-MED ONCE TP Last administered on 06/23/18at 19:15; Start 06/23/18 at 19:15; Stop 06/23/18 at 19:17; Status DC Rivastigmine Tartrate (Exelon) 3 mg BID PO Last administered on 07/14/18at 20:56 ; Start 06/24/18 at 21:00 Fluvoxamine Maleate (Luvox) 25 mg QHS PO Last administered on 06/25/18 19:22; Start 06/24/18 at 21:00; Stop 06/26/18 at 19:00; Status DC Fluvoxamine Maleate (Luvox) 50 mg QHS PO Last administered on 06/30/18at 19:36; Start 06/26/18 at 21:00; Stop 07/01/18 at 20:00; Status DC Quetiapine Fumarate (SEROquel) 25 mg DAILY@1900 PO Last administered on 20:58; Start 06/24/18 at 19:00 Quetiapine Fumarate (SEROquel) 25 mg BID@0900,1500 PO Last administered on 07/14 16:49; Start 06/25/18 at 09:00 Bisacodyl (Dulcolax Supp) 10 mg PRN DAILY PRN [place] CONSTIPATION Last administered on 06/27/18at 11:54; Start 06/27/18 at 10:30 Fluvoxamine Maleate (Luvox) 75 mg QHS PO Last administered on 07/13/18 19:16; Start 07/01/18 at 21:00; Stop 07/13/18 at 19:43; Status DC Divalproex Sodium (Depakote Sprinkles) 125 mg BID@0900,1700 PO Last administered on 07/14/18 16:49; Start 06/30/18 at 17:00 Mirtazapine (Remeron) 7.5 mg QHS PO Last administered on 07/14/18 20:56; Start 07/09/18 at 21:00 Fluvoxamine Maleate (Luvox) 100 mg QHS PO Last administered on 07/14/18at 20:56 ; Start 07/13/18 at 21:00 Nystatin (Nystop) 1 alan PRN BID PRN TP skin rash; Start 07/14/18 at 21:30 Active Scripts Active Reported Tamsulosin Hcl 0.4 Mg Cap.er.24h 0.4 Mg PO DAILY Levothyroxine Sodium 88 Mcg Tablet 88 Mcg PO DAILYAC Escitalopram Oxalate 20 Mg Tablet 20 Mg PO DAILY Rivastigmine (Rivastigmine Tartrate) 1.5 Mg Capsule 1.5 Mg PO BID Namenda Xr (Memantine Hcl) 28 Mg Cap.spr.24 28 Mg PO DAILY I have reviewed the current psychotropics carefully including drug interactions. Risk benefit ratio favors no change other than as noted in my dictated progress note. Diagnosis: Problems: (1) Mental status alteration (2) Anxiety disorder (3) Dementia in Alzheimer's disease with delusions (4) Dementia in Alzheimer's disease with depression (5) Dementia, vascular, with delusions (6) Dementia, vascular, with depression (7) Impulse control disorder MILAN TAYLOR MD Jul 14, 2018 22:42
[2018-07-15] MEDS: LEVOTHYROXINE 88 MCG TABLET PO SCH (05:53)
[2018-07-15 05:54] VITALS: BP 136/70
[2018-07-15] MEDS: MEMANTINE 10 MG TABLET. PO SCH ×2 (10:24→20:45)
[2018-07-15] MEDS: RIVASTIGMINE 3 MG CAPSULE. PO SCH ×2 (10:24→20:45)
[2018-07-15] MEDS: QUEtiapine 25 MG TABLET. PO SCH ×3 (10:24→20:44)
[2018-07-15] MEDS: TAMSULOSIN 0.4 MG CAP.ER.24H. PO SCH (10:24)
[2018-07-15] MEDS: DIVALPROEX 125 MG CAP.SPRINK PO SCH ×2 (10:24→16:21)
[2018-07-15] MEDS: MAGNESIUM HYDROXIDE 2,400 MG/30 ML ORAL.SUSP. PO PRN (16:21)
[2018-07-15 16:29] VITALS: BP 125/70
[2018-07-15] MEDS: MIRTAZAPINE 7.5 MG TABLET. PO SCH (20:44)
--- NOTE | 2018-07-15 21:35 | PN ---
DATE: 07/14/2018 PSYCHIATRIC PROGRESS NOTE This late entry 07/14/2018 covers elements not covered in my initial note. SUBJECTIVE: I met with the patient in the evening. The patient slept 6-1/2 hours previous night. Remains confused, slept until about 10:00 a.m., not aggressive. He remains quite disorganized, has some resistance to taking medications. REVIEW OF SYSTEMS: No CV, , pulmonary, eye, ENT system symptoms on review. Reliability poor. MENTAL STATUS EXAM: Oriented to himself. Insight, judgment, recent and remote memory, attention, concentration, fund of knowledge poor, consistent with his diagnosis mentioned in my initial note. IMPRESSION: No change from initial note. PLAN: Continue current psychotropics. Adjust further as clinically indicated. MAN Connie TAYLOR MD DR: NATAN/alfredo JOB#: [id number] / [id number]
--- NOTE | 2018-07-15 22:32 | PDOC ---
Exam Note: Justin Note: Please also refer to the separate dictated note~for this date of service dictated separately.~Patient seen individually. Discussed the patient with Nursing staff reviewed the chart.~Reviewed interim history and current functioning. Reviewed vital signs,~Labs/ Radiology~and current medications noted below. Continue current treatment with the changes noted in the dictated addendum note Assessment: Vital Signs: Vital Signs Date Time Temp Pulse Resp B/P (MAP) Pulse Ox O2 Delivery O2 Flow Rate FiO2 07/15/18 16:29 98.3 72 20 125/70 (88) 99 07/14/18 16:10 Room Air I&O Intake and Output 07/15/18 07:01 Intake Total 480 ml Balance 480 ml Intake Oral 480 ml Current Medications: Meds: Current Medications Lorazepam (Ativan) 2 mg 1X ONCE PO Last administered on 06/17/18 19:54; Start 06/17/18 at 20:15; Stop 06/17/18 at 20:16; Status DC Acetaminophen (Tylenol) 650 mg PRN Q6HRS PRN PO PAIN / TEMP Last administered on 07/08/18 11:59; Start 06/17/18 at 21:30 Multi-Ingredient Ointment (Analgesic [place]) 1 alan PRN QID PRN TP MUSCLE PAIN Last administered on 06/24/18 13:11; Start 06/17/18 at 21:30 Al Hydroxide/Mg Hydroxide (Mylanta Plus Xs) 15 ml PRN AFTMEALHC PRN PO DYSPEPSIA Last administered on 07/09/18 17:03; Start 06/17/18 at 21:30 Magnesium Hydroxide (Milk Of Magnesia) 2,400 mg PRN QHS PRN PO CONSTIPATION Last administered on 07/15/18 16:21; Start 06/17/18 at 21:30 Trazodone HCl (Desyrel) 25 mg PRN QHS PRN PO INSOMNIA Last administered on 07/08 21:03; Start 06/17/18 at 21:30 Olanzapine (ZyPREXA ZYDIS) 2.5 mg PRN Q2HR PRN PO PSYCHOSIS Last administered on 07/15/18 21:30; Start 06/17/18 at 21:30 Citalopram Hydrobromide (CeleXA) 40 mg DAILY PO Last administered on 06/19/18 08:09; Start 06/18/18 at 09:00; Stop 06/19/18 at 16:58; Status DC Memantine (Namenda) 10 mg BID PO Last administered on 07/15/18 20:45; Start at 09:00 Rivastigmine Tartrate (Exelon) 1.5 mg BIDWMEALS PO Last administered on 07:47; Start 06/18/18 at 08:00; Stop 06/23/18 at 16:38; Status DC Levothyroxine Sodium (Synthroid) 88 mcg DAILYAC PO Last administered on 08:11; Start 06/18/18 at 07:30; Stop 06/19/18 at 17:40; Status DC Tamsulosin HCl (Flomax) 0.4 mg DAILY PO Last administered on 07/15/18 10:24; Start 06/18/18 at 09:00 Hydroxyzine HCl (Atarax) 25 mg PRN Q2HR PRN PO ANXIETY / AGITATION Last administered on 06/21/18 18:40; Start 06/18/18 at 23:00; Stop 06/21/18 at 20:10; Status DC Carbamide Peroxide (Debrox) 5 drop BID AU Last administered on 06/24/18 11:00; Start 06/19/18 at 21:00; Stop 06/24/18 at 20:59; Status DC Mirtazapine (Remeron) 7.5 mg QHS PO Last administered on 06/22/18 19:17; Start 06/19/18 at 21:00; Stop 06/23/18 at 18:12; Status DC Sertraline HCl (Zoloft) 50 mg DAILY PO Last administered on 06/24/18 10:56; Start 06/20/18 at 09:00; Stop 06/24/18 at 18:42; Status DC Quetiapine Fumarate (SEROquel) 12.5 mg 0900,1700 PO Last administered on 16:23; Start 06/19/18 at 17:00; Stop 06/22/18 at 16:55; Status DC Levothyroxine Sodium (Synthroid) 88 mcg DAILY06 PO Last administered on 1/30/ 19at 05:53; Start 06/20/18 at 06:00 Quetiapine Fumarate (SEROquel) 12.5 mg BID92 PO ; Start 06/23/18 at 09:00; Stop 06/23/18 at 09:00; Status DC Quetiapine Fumarate (SEROquel) 25 mg DAILY@1900 PO ; Start 06/22/18 at 19:00; Stop 06/22/18 at 19:00; Status DC Quetiapine Fumarate (SEROquel) 12.5 mg BID@0900,1500 PO Last administered on 06/24/18at 16:33; Start 06/23/18 at 09:00; Stop 06/24/18 at 18:46; Status DC Quetiapine Fumarate (SEROquel) 25 mg STK-MED ONCE .ROUTE ; Start 06/22/18 at 17: 12; Stop 06/22/18 at 17:14; Status DC Quetiapine Fumarate (SEROquel) 12.5 mg DAILY@1900 PO Last administered on at 18:16; Start 06/22/18 at 19:00; Stop 06/24/18 at 18:46; Status DC Rivastigmine Tartrate (Exelon) 1.5 mg DAILY PO Last administered on 06/24/18at 10 :58; Start 06/24/18 at 09:00; Stop 06/24/18 at 14:14; Status DC Rivastigmine Tartrate (Exelon) 3 mg HS PO ; Start 06/23/18 at 21:00; Stop at 21:00; Status DC Rivastigmine Tartrate (Exelon) 3 mg BIDWMEALS PO Last administered on 06/24/18at 10:54; Start 06/23/18 at 17:00; Stop 06/24/18 at 14:14; Status DC Rivastigmine Tartrate (Exelon) 3 mg HS PO ; Start 06/27/18 at 09:00; Stop at 09:00; Status DC Nystatin (Nystop) 1 alan BID TP Last administered on 07/14/18at 20:58; Start 06/23 at 21:00; Stop 07/14/18 at 21:27; Status DC Mirtazapine (Remeron) 15 mg QHS PO Last administered on 07/08/18 21:01; Start 06/23/18 at 21:00; Stop 07/09/18 at 17:52; Status DC Nystatin (Nystop) 15 alan STK-MED ONCE TP Last administered on 06/23/18at 19:15; Start 06/23/18 at 19:15; Stop 06/23/18 at 19:17; Status DC Rivastigmine Tartrate (Exelon) 3 mg BID PO Last administered on 07/15/18at 20:45 ; Start 06/24/18 at 21:00 Fluvoxamine Maleate (Luvox) 25 mg QHS PO Last administered on 06/25/18 19:22; Start 06/24/18 at 21:00; Stop 06/26/18 at 19:00; Status DC Fluvoxamine Maleate (Luvox) 50 mg QHS PO Last administered on 06/30/18at 19:36; Start 06/26/18 at 21:00; Stop 07/01/18 at 20:00; Status DC Quetiapine Fumarate (SEROquel) 25 mg DAILY@1900 PO Last administered on 20:44; Start 06/24/18 at 19:00 Quetiapine Fumarate (SEROquel) 25 mg BID@0900,1500 PO Last administered on 07/15 16:21; Start 06/25/18 at 09:00 Bisacodyl (Dulcolax Supp) 10 mg PRN DAILY PRN [place] CONSTIPATION Last administered on 06/27/18at 11:54; Start 06/27/18 at 10:30 Fluvoxamine Maleate (Luvox) 75 mg QHS PO Last administered on 07/13/18 19:16; Start 07/01/18 at 21:00; Stop 07/13/18 at 19:43; Status DC Divalproex Sodium (Depakote Sprinkles) 125 mg BID@0900,1700 PO Last administered on 07/15/18 16:21; Start 06/30/18 at 17:00 Mirtazapine (Remeron) 7.5 mg QHS PO Last administered on 07/15/18 20:44; Start 1/24/19 at 21:00 Fluvoxamine Maleate (Luvox) 100 mg QHS PO Last administered on 07/15/18at 20:45 ; Start 07/13/18 at 21:00 Nystatin (Nystop) 1 alan PRN BID PRN TP skin rash; Start 07/14/18 at 21:30 Active Scripts Active Reported Tamsulosin Hcl 0.4 Mg Cap.er.24h 0.4 Mg PO DAILY Levothyroxine Sodium 88 Mcg Tablet 88 Mcg PO DAILYAC Escitalopram Oxalate 20 Mg Tablet 20 Mg PO DAILY Rivastigmine (Rivastigmine Tartrate) 1.5 Mg Capsule 1.5 Mg PO BID Namenda Xr (Memantine Hcl) 28 Mg Cap.spr.24 28 Mg PO DAILY I have reviewed the current psychotropics carefully including drug interactions. Risk benefit ratio favors no change other than as noted in my dictated progress note. Diagnosis: Problems: (1) Mental status alteration (2) Anxiety disorder (3) Dementia in Alzheimer's disease with delusions (4) Dementia in Alzheimer's disease with depression (5) Dementia, vascular, with delusions (6) Dementia, vascular, with depression (7) Impulse control disorder MILAN TAYLOR MD Jul 15, 2018 22:32
[2018-07-16] MEDS: LEVOTHYROXINE 88 MCG TABLET PO SCH (06:14)
[2018-07-16 06:52] VITALS: BP 172/89
[2018-07-16 07:38] LABS: BASO # 0.1 x10^3/uL (0.0-0.2); BASO % 1 % (0-3); EOS # 0.5 x10^3/uL (0.0-0.7); EOS % 7 % (0-3); HEMOGLOBIN 12.5 g/dL (13.0-17.5); LYMPH # 1.7 x10^3/uL (1.0-4.8); LYMPH % 25 % (24-48); MEAN CORPUSCULAR HEMOGLOBIN 31 pg (25-35); MEAN CORPUSCULAR HGB CONC 34 g/dL (31-37); MEAN CORPUSCULAR VOLUME 93 fL (79-100); MONO # 1.1 x10^3/uL (0.0-1.1); MONO % 15 % (0-9); NEUT # 3.6 x10^3uL (1.8-7.7); NEUT % 53 % (31-73); PLATELET COUNT 232 x10^3/uL (140-400); RED CELL DISTRIBUTION WIDTH 13.5 % (11.5-14.5); WHITE BLOOD COUNT 6.9 x10^3/uL (4.0-11.0)
[2018-07-16 07:49] LABS: CALCIUM 8.2 mg/dL (8.5-10.1); CREATININE 1.2 mg/dL (0.7-1.3); GFR 58.6; TOTAL BILIRUBIN 0.3 mg/dL (0.2-1.0); TOTAL PROTEIN 7.4 g/dL (6.4-8.2)
[2018-07-16 08:11] LABS: ALBUMIN 2.7 g/dL (3.4-5.0); ALBUMIN/GLOBULIN RATIO 0.6 (1.0-1.7)
[2018-07-16] MEDS: RIVASTIGMINE 3 MG CAPSULE. PO SCH ×2 (11:13→19:40)
[2018-07-16] MEDS: TAMSULOSIN 0.4 MG CAP.ER.24H. PO SCH (11:13)
[2018-07-16] MEDS: MEMANTINE 10 MG TABLET. PO SCH ×2 (11:13→19:40)
[2018-07-16] MEDS: QUEtiapine 25 MG TABLET. PO SCH ×3 (11:13→19:40)
[2018-07-16] MEDS: DIVALPROEX 125 MG CAP.SPRINK PO SCH ×2 (11:13→16:13)
[2018-07-16 16:14] VITALS: BP 133/77
[2018-07-16] MEDS: MIRTAZAPINE 7.5 MG TABLET. PO SCH (19:40)
[2018-07-16] MEDS: MAGNESIUM HYDROXIDE 2,400 MG/30 ML ORAL.SUSP. PO PRN (19:44)
--- NOTE | 2018-07-16 22:30 | PDOC ---
Exam Note: Justin Note: Please also refer to the separate dictated note~for this date of service dictated separately.~Patient seen individually. Discussed the patient with Nursing staff reviewed the chart.~Reviewed interim history and current functioning. Reviewed vital signs,~Labs/ Radiology~and current medications noted below. Continue current treatment with the changes noted in the dictated addendum note Assessment: Vital Signs: Vital Signs Date Time Temp Pulse Resp B/P (MAP) Pulse Ox O2 Delivery O2 Flow Rate FiO2 07/16/18 16:14 98.2 63 16 133/77 (95) 98 07/14/18 16:10 Room Air I&O Intake and Output 07/16/18 07:01 Intake Total 1080 ml Balance 1080 ml Intake Oral 1080 ml Labs: Laboratory Tests Test 07/16/18 06:54 White Blood Count 6.9 x10^3/uL (4.0-11.0) Red Blood Count 4.00 x10^6/uL (4.30-5.70) L Hemoglobin 12.5 g/dL (13.0-17.5) L Hematocrit 37.0 % (39.0-53.0) L Mean Corpuscular Volume 93 fL (79-100) Mean Corpuscular Hemoglobin 31 pg (25-35) Mean Corpuscular Hemoglobin Concent 34 g/dL (31-37) Red Cell Distribution Width 13.5 % (11.5-14.5) Platelet Count 232 x10^3/uL (140-400) Neutrophils (%) (Auto) 53 % (31-73) Lymphocytes (%) (Auto) 25 % (24-48) Monocytes (%) (Auto) 15 % (0-9) H Eosinophils (%) (Auto) 7 % (0-3) H Basophils (%) (Auto) 1 % (0-3) Neutrophils # (Auto) 3.6 x10^3uL (1.8-7.7) Lymphocytes # (Auto) 1.7 x10^3/uL (1.0-4.8) Monocytes # (Auto) 1.1 x10^3/uL (0.0-1.1) Eosinophils # (Auto) 0.5 x10^3/uL (0.0-0.7) Basophils # (Auto) 0.1 x10^3/uL (0.0-0.2) Sodium Level 143 mmol/L (136-145) Potassium Level 4.0 mmol/L (3.5-5.1) Chloride Level 108 mmol/L (98-107) H Carbon Dioxide Level 29 mmol/L (21-32) Anion Gap 6 (6-14) Blood Urea Nitrogen 28 mg/dL (8-26) H Creatinine 1.2 mg/dL (0.7-1.3) Estimated GFR (Cockcroft-Gault) 58.6 BUN/Creatinine Ratio 23 (6-20) H Glucose Level 89 mg/dL (70-99) Calcium Level 8.2 mg/dL (8.5-10.1) L Total Bilirubin 0.3 mg/dL (0.2-1.0) Aspartate Amino Transferase (AST) 25 U/L (15-37) Alanine Aminotransferase (ALT) 41 U/L (16-63) Alkaline Phosphatase 105 U/L (46-116) Total Protein 7.4 g/dL (6.4-8.2) Albumin 2.7 g/dL (3.4-5.0) L Albumin/Globulin Ratio 0.6 (1.0-1.7) L Current Medications: Meds: Current Medications Lorazepam (Ativan) 2 mg 1X ONCE PO Last administered on 06/17/18 19:54; Start 06/17/18 at 20:15; Stop 06/17/18 at 20:16; Status DC Acetaminophen (Tylenol) 650 mg PRN Q6HRS PRN PO PAIN / TEMP Last administered on 07/08/18 11:59; Start 06/17/18 at 21:30 Multi-Ingredient Ointment (Analgesic [place]) 1 alan PRN QID PRN TP MUSCLE PAIN Last administered on 06/24/18 13:11; Start 06/17/18 at 21:30 Al Hydroxide/Mg Hydroxide (Mylanta Plus Xs) 15 ml PRN AFTMEALHC PRN PO DYSPEPSIA Last administered on 07/09/18 17:03; Start 06/17/18 at 21:30 Magnesium Hydroxide (Milk Of Magnesia) 2,400 mg PRN QHS PRN PO CONSTIPATION Last administered on 07/16/18 19:44; Start 06/17/18 at 21:30 Trazodone HCl (Desyrel) 25 mg PRN QHS PRN PO INSOMNIA Last administered on 07/08 21:03; Start 06/17/18 at 21:30 Olanzapine (ZyPREXA ZYDIS) 2.5 mg PRN Q2HR PRN PO PSYCHOSIS Last administered on 07/15/18 21:30; Start 06/17/18 at 21:30 Citalopram Hydrobromide (CeleXA) 40 mg DAILY PO Last administered on 06/19/18 08:09; Start 06/18/18 at 09:00; Stop 06/19/18 at 16:58; Status DC Memantine (Namenda) 10 mg BID PO Last administered on 07/16/18 19:40; Start at 09:00 Rivastigmine Tartrate (Exelon) 1.5 mg BIDWMEALS PO Last administered on 07:47; Start 06/18/18 at 08:00; Stop 06/23/18 at 16:38; Status DC Levothyroxine Sodium (Synthroid) 88 mcg DAILYAC PO Last administered on 08:11; Start 06/18/18 at 07:30; Stop 06/19/18 at 17:40; Status DC Tamsulosin HCl (Flomax) 0.4 mg DAILY PO Last administered on 07/16/18 11:13; Start 06/18/18 at 09:00 Hydroxyzine HCl (Atarax) 25 mg PRN Q2HR PRN PO ANXIETY / AGITATION Last administered on 06/21/18 18:40; Start 06/18/18 at 23:00; Stop 06/21/18 at 20:10; Status DC Carbamide Peroxide (Debrox) 5 drop BID AU Last administered on 06/24/18 11:00; Start 06/19/18 at 21:00; Stop 06/24/18 at 20:59; Status DC Mirtazapine (Remeron) 7.5 mg QHS PO Last administered on 06/22/18 19:17; Start 06/19/18 at 21:00; Stop 06/23/18 at 18:12; Status DC Sertraline HCl (Zoloft) 50 mg DAILY PO Last administered on 06/24/18 10:56; Start 06/20/18 at 09:00; Stop 06/24/18 at 18:42; Status DC Quetiapine Fumarate (SEROquel) 12.5 mg 0900,1700 PO Last administered on at 16:23; Start 06/19/18 at 17:00; Stop 06/22/18 at 16:55; Status DC Levothyroxine Sodium (Synthroid) 88 mcg DAILY06 PO Last administered on at 06:14; Start 06/20/18 at 06:00 Quetiapine Fumarate (SEROquel) 12.5 mg BID92 PO ; Start 06/23/18 at 09:00; Stop 06/23/18 at 09:00; Status DC Quetiapine Fumarate (SEROquel) 25 mg DAILY@1900 PO ; Start 06/22/18 at 19:00; Stop 06/22/18 at 19:00; Status DC Quetiapine Fumarate (SEROquel) 12.5 mg BID@0900,1500 PO Last administered on 06/24/18at 16:33; Start 06/23/18 at 09:00; Stop 06/24/18 at 18:46; Status DC Quetiapine Fumarate (SEROquel) 25 mg STK-MED ONCE .ROUTE ; Start 06/22/18 at 17: 12; Stop 06/22/18 at 17:14; Status DC Quetiapine Fumarate (SEROquel) 12.5 mg DAILY@1900 PO Last administered on at 18:16; Start 06/22/18 at 19:00; Stop 06/24/18 at 18:46; Status DC Rivastigmine Tartrate (Exelon) 1.5 mg DAILY PO Last administered on 06/24/18at 10 :58; Start 06/24/18 at 09:00; Stop 06/24/18 at 14:14; Status DC Rivastigmine Tartrate (Exelon) 3 mg HS PO ; Start 06/23/18 at 21:00; Stop at 21:00; Status DC Rivastigmine Tartrate (Exelon) 3 mg BIDWMEALS PO Last administered on 06/24/18at 10:54; Start 06/23/18 at 17:00; Stop 06/24/18 at 14:14; Status DC Rivastigmine Tartrate (Exelon) 3 mg HS PO ; Start 06/27/18 at 09:00; Stop at 09:00; Status DC Nystatin (Nystop) 1 alan BID TP Last administered on 07/14/18at 20:58; Start 06/23 at 21:00; Stop 07/14/18 at 21:27; Status DC Mirtazapine (Remeron) 15 mg QHS PO Last administered on 07/08/18 21:01; Start 06/23/18 at 21:00; Stop 07/09/18 at 17:52; Status DC Nystatin (Nystop) 15 alan STK-MED ONCE TP Last administered on 06/23/18at 19:15; Start 06/23/18 at 19:15; Stop 06/23/18 at 19:17; Status DC Rivastigmine Tartrate (Exelon) 3 mg BID PO Last administered on 07/16/18 19:40 ; Start 06/24/18 at 21:00 Fluvoxamine Maleate (Luvox) 25 mg QHS PO Last administered on 06/25/18 19:22; Start 06/24/18 at 21:00; Stop 06/26/18 at 19:00; Status DC Fluvoxamine Maleate (Luvox) 50 mg QHS PO Last administered on 06/30/18at 19:36; Start 06/26/18 at 21:00; Stop 07/01/18 at 20:00; Status DC Quetiapine Fumarate (SEROquel) 25 mg DAILY@1900 PO Last administered on 19:40; Start 06/24/18 at 19:00 Quetiapine Fumarate (SEROquel) 25 mg BID@0900,1500 PO Last administered on 07/16 16:13; Start 06/25/18 at 09:00 Bisacodyl (Dulcolax Supp) 10 mg PRN DAILY PRN [place] CONSTIPATION Last administered on 06/27/18at 11:54; Start 06/27/18 at 10:30 Fluvoxamine Maleate (Luvox) 75 mg QHS PO Last administered on 07/13/18at 19:16; Start 1/16/19 at 21:00; Stop 07/13/18 at 19:43; Status DC Divalproex Sodium (Depakote Sprinkles) 125 mg BID@0900,1700 PO Last administered on 07/16/18at 16:13; Start 06/30/18 at 17:00 Mirtazapine (Remeron) 7.5 mg QHS PO Last administered on 07/16/18at 19:40; Start 07/09/18 at 21:00 Fluvoxamine Maleate (Luvox) 100 mg QHS PO Last administered on 07/16/18at 19:40 ; Start 07/13/18 at 21:00 Nystatin (Nystop) 1 alan PRN BID PRN TP skin rash; Start 07/14/18 at 21:30 Active Scripts Active Reported Tamsulosin Hcl 0.4 Mg Cap.er.24h 0.4 Mg PO DAILY Levothyroxine Sodium 88 Mcg Tablet 88 Mcg PO DAILYAC Escitalopram Oxalate 20 Mg Tablet 20 Mg PO DAILY Rivastigmine (Rivastigmine Tartrate) 1.5 Mg Capsule 1.5 Mg PO BID Namenda Xr (Memantine Hcl) 28 Mg Cap.spr.24 28 Mg PO DAILY I have reviewed the current psychotropics carefully including drug interactions. Risk benefit ratio favors no change other than as noted in my dictated progress note. Diagnosis: Problems: (1) Mental status alteration (2) Anxiety disorder (3) Dementia in Alzheimer's disease with delusions (4) Dementia in Alzheimer's disease with depression (5) Dementia, vascular, with delusions (6) Dementia, vascular, with depression (7) Impulse control disorder MILAN TAYLOR MD Jul 16, 2018 22:30
[2018-07-17] MEDS: LEVOTHYROXINE 88 MCG TABLET PO SCH (05:54)
[2018-07-17 06:20] VITALS: BP 153/82
[2018-07-17] MEDS: DIVALPROEX 125 MG CAP.SPRINK PO SCH ×2 (08:49→17:41)
[2018-07-17] MEDS: RIVASTIGMINE 3 MG CAPSULE. PO SCH ×2 (08:50→19:41)
[2018-07-17] MEDS: MEMANTINE 10 MG TABLET. PO SCH ×2 (08:50→19:41)
[2018-07-17] MEDS: TAMSULOSIN 0.4 MG CAP.ER.24H. PO SCH (08:50)
[2018-07-17] MEDS: QUEtiapine 25 MG TABLET. PO SCH ×3 (08:52→19:41)
[2018-07-17 16:04] VITALS: BP 98/58
[2018-07-17] MEDS: MIRTAZAPINE 7.5 MG TABLET. PO SCH (19:41)
--- NOTE | 2018-07-17 21:00 | PN ---
DATE: 07/15/2018 PSYCHIATRIC PROGRESS NOTE This is a late entry for 07/15/2018 and covers elements not covered in my initial note. SUBJECTIVE: I met with the patient in the evening. The patient slept 6-1/4 hours previous night. He has been confused, wandering, otherwise restless, disorganized, but not aggressive. In the evening, he was sitting next to another demented patient, but not overtly sexually inappropriate. REVIEW OF SYSTEMS: No CV, , pulmonary, eye, ENT system symptoms on review. Reliability poor. MENTAL STATUS EXAM: Oriented to himself. Insight, judgment, recent and remote memory, attention, concentration, fund of knowledge poor, consistent with his diagnosis as mentioned in my initial note. IMPRESSION: Major neurocognitive disorder, Alzheimer, vascular with delusion, depression, behavioral disturbance. Rest unchanged. PLAN: No change from initial note. MAN Connie TAYLOR MD DR: NATAN/alfredo JOB#: [id number] / [id number]
--- NOTE | 2018-07-17 22:55 | PDOC ---
Exam Note: Justin Note: Please also refer to the separate dictated note~for this date of service dictated separately.~Patient seen individually. Discussed the patient with Nursing staff reviewed the chart.~Reviewed interim history and current functioning. Reviewed vital signs,~Labs/ Radiology~and current medications noted below. Continue current treatment with the changes noted in the dictated addendum note Assessment: Vital Signs: Vital Signs Date Time Temp Pulse Resp B/P (MAP) Pulse Ox O2 Delivery O2 Flow Rate FiO2 07/17/18 16:04 98.0 71 20 98/58 (71) 98 Room Air I&O Intake and Output 07/17/18 07:01 Intake Total 1020 ml Balance 1020 ml Intake Oral 1020 ml Current Medications: Meds: Current Medications Lorazepam (Ativan) 2 mg 1X ONCE PO Last administered on 06/17/18 19:54; Start 06/17/18 at 20:15; Stop 06/17/18 at 20:16; Status DC Acetaminophen (Tylenol) 650 mg PRN Q6HRS PRN PO PAIN / TEMP Last administered on 07/08/18 11:59; Start 06/17/18 at 21:30 Multi-Ingredient Ointment (Analgesic [place]) 1 alan PRN QID PRN TP MUSCLE PAIN Last administered on 06/24/18 13:11; Start 06/17/18 at 21:30 Al Hydroxide/Mg Hydroxide (Mylanta Plus Xs) 15 ml PRN AFTMEALHC PRN PO DYSPEPSIA Last administered on 07/09/18 17:03; Start 06/17/18 at 21:30 Magnesium Hydroxide (Milk Of Magnesia) 2,400 mg PRN QHS PRN PO CONSTIPATION Last administered on 07/16/18 19:44; Start 06/17/18 at 21:30 Trazodone HCl (Desyrel) 25 mg PRN QHS PRN PO INSOMNIA Last administered on 07/08 21:03; Start 06/17/18 at 21:30 Olanzapine (ZyPREXA ZYDIS) 2.5 mg PRN Q2HR PRN PO PSYCHOSIS Last administered on 07/15/18 21:30; Start 06/17/18 at 21:30 Citalopram Hydrobromide (CeleXA) 40 mg DAILY PO Last administered on 06/19/18 08:09; Start 06/18/18 at 09:00; Stop 06/19/18 at 16:58; Status DC Memantine (Namenda) 10 mg BID PO Last administered on 07/17/18 19:41; Start 06/18/18 at 09:00 Rivastigmine Tartrate (Exelon) 1.5 mg BIDWMEALS PO Last administered on 07:47; Start 06/18/18 at 08:00; Stop 06/23/18 at 16:38; Status DC Levothyroxine Sodium (Synthroid) 88 mcg DAILYAC PO Last administered on 08:11; Start 06/18/18 at 07:30; Stop 06/19/18 at 17:40; Status DC Tamsulosin HCl (Flomax) 0.4 mg DAILY PO Last administered on 07/17/18 08:50; Start 06/18/18 at 09:00 Hydroxyzine HCl (Atarax) 25 mg PRN Q2HR PRN PO ANXIETY / AGITATION Last administered on 06/21/18 18:40; Start 06/18/18 at 23:00; Stop 06/21/18 at 20:10; Status DC Carbamide Peroxide (Debrox) 5 drop BID AU Last administered on 06/24/18 11:00; Start 06/19/18 at 21:00; Stop 06/24/18 at 20:59; Status DC Mirtazapine (Remeron) 7.5 mg QHS PO Last administered on 06/22/18 19:17; Start 06/19/18 at 21:00; Stop 06/23/18 at 18:12; Status DC Sertraline HCl (Zoloft) 50 mg DAILY PO Last administered on 06/24/18 10:56; Start 06/20/18 at 09:00; Stop 06/24/18 at 18:42; Status DC Quetiapine Fumarate (SEROquel) 12.5 mg 0900,1700 PO Last administered on 16:23; Start 06/19/18 at 17:00; Stop 06/22/18 at 16:55; Status DC Levothyroxine Sodium (Synthroid) 88 mcg DAILY06 PO Last administered on 05:54; Start 06/20/18 at 06:00 Quetiapine Fumarate (SEROquel) 12.5 mg BID92 PO ; Start 06/23/18 at 09:00; Stop 06/23/18 at 09:00; Status DC Quetiapine Fumarate (SEROquel) 25 mg DAILY@1900 PO ; Start 06/22/18 at 19:00; Stop 06/22/18 at 19:00; Status DC Quetiapine Fumarate (SEROquel) 12.5 mg BID@0900,1500 PO Last administered on 06/24/18at 16:33; Start 06/23/18 at 09:00; Stop 06/24/18 at 18:46; Status DC Quetiapine Fumarate (SEROquel) 25 mg STK-MED ONCE .ROUTE ; Start 06/22/18 at 17: 12; Stop 06/22/18 at 17:14; Status DC Quetiapine Fumarate (SEROquel) 12.5 mg DAILY@1900 PO Last administered on at 18:16; Start 06/22/18 at 19:00; Stop 06/24/18 at 18:46; Status DC Rivastigmine Tartrate (Exelon) 1.5 mg DAILY PO Last administered on 06/24/18at 10 :58; Start 06/24/18 at 09:00; Stop 06/24/18 at 14:14; Status DC Rivastigmine Tartrate (Exelon) 3 mg HS PO ; Start 06/23/18 at 21:00; Stop at 21:00; Status DC Rivastigmine Tartrate (Exelon) 3 mg BIDWMEALS PO Last administered on 06/24/18at 10:54; Start 06/23/18 at 17:00; Stop 06/24/18 at 14:14; Status DC Rivastigmine Tartrate (Exelon) 3 mg HS PO ; Start 06/27/18 at 09:00; Stop at 09:00; Status DC Nystatin (Nystop) 1 alan BID TP Last administered on 07/14/18at 20:58; Start 06/23 at 21:00; Stop 07/14/18 at 21:27; Status DC Mirtazapine (Remeron) 15 mg QHS PO Last administered on 07/08/18 21:01; Start 06/23/18 at 21:00; Stop 07/09/18 at 17:52; Status DC Nystatin (Nystop) 15 alan STK-MED ONCE TP Last administered on 06/23/18at 19:15; Start 06/23/18 at 19:15; Stop 06/23/18 at 19:17; Status DC Rivastigmine Tartrate (Exelon) 3 mg BID PO Last administered on 07/17/18 19:41 ; Start 06/24/18 at 21:00 Fluvoxamine Maleate (Luvox) 25 mg QHS PO Last administered on 06/25/18 19:22; Start 06/24/18 at 21:00; Stop 06/26/18 at 19:00; Status DC Fluvoxamine Maleate (Luvox) 50 mg QHS PO Last administered on 06/30/18at 19:36; Start 06/26/18 at 21:00; Stop 07/01/18 at 20:00; Status DC Quetiapine Fumarate (SEROquel) 25 mg DAILY@1900 PO Last administered on 19:41; Start 06/24/18 at 19:00 Quetiapine Fumarate (SEROquel) 25 mg BID@0900,1500 PO Last administered on 17:41; Start 06/25/18 at 09:00 Bisacodyl (Dulcolax Supp) 10 mg PRN DAILY PRN [place] CONSTIPATION Last administered on 06/27/18at 11:54; Start 06/27/18 at 10:30 Fluvoxamine Maleate (Luvox) 75 mg QHS PO Last administered on 07/13/18 19:16; Start 07/01/18 at 21:00; Stop 07/13/18 at 19:43; Status DC Divalproex Sodium (Depakote Sprinkles) 125 mg BID@0900,1700 PO Last administered on 07/17/18 17:41; Start 06/30/18 at 17:00 Mirtazapine (Remeron) 7.5 mg QHS PO Last administered on 07/17/18 19:41; Start 07/09/18 at 21:00 Fluvoxamine Maleate (Luvox) 100 mg QHS PO Last administered on 07/17/18at 19:41; Start 07/13/18 at 21:00 Nystatin (Nystop) 1 alan PRN BID PRN TP skin rash; Start 07/14/18 at 21:30 Active Scripts Active Reported Tamsulosin Hcl 0.4 Mg Cap.er.24h 0.4 Mg PO DAILY Levothyroxine Sodium 88 Mcg Tablet 88 Mcg PO DAILYAC Escitalopram Oxalate 20 Mg Tablet 20 Mg PO DAILY Rivastigmine (Rivastigmine Tartrate) 1.5 Mg Capsule 1.5 Mg PO BID Namenda Xr (Memantine Hcl) 28 Mg Cap.spr.24 28 Mg PO DAILY I have reviewed the current psychotropics carefully including drug interactions. Risk benefit ratio favors no change other than as noted in my dictated progress note. Diagnosis: Problems: (1) Mental status alteration (2) Anxiety disorder (3) Dementia in Alzheimer's disease with delusions (4) Dementia in Alzheimer's disease with depression (5) Dementia, vascular, with delusions (6) Dementia, vascular, with depression (7) Impulse control disorder MILAN TAYLOR MD Jul 17, 2018 22:55
[2018-07-17] MEDS: traZODone 50 MG TABLET. PO PRN (23:52)
--- NOTE | 2018-07-18 04:51 | PN ---
DATE: 07/16/2018 PSYCHIATRIC PROGRESS NOTE This is a late entry of 07/16/2018 covers elements not covered in my initial note. SUBJECTIVE: I met with the patient in the evening and staffed at a treatment team meeting with the entire team in the morning. We tried to call the patient's , she was unavailable. He has been ambulating better, slept 6 hours. Appetite 90%. Reviewed his history, diagnosis, placement options at length with nursing and social service staff. REVIEW OF SYSTEMS: No CV, , pulmonary, eye, ENT system symptoms on review. Reliability poor. MENTAL STATUS EXAM: Oriented to himself. Insight, judgment, recent and remote memory, attention, concentration, fund of knowledge poor, consistent with his diagnosis mentioned in my initial note. PLAN: No change from initial note. MAN Connie TAYLOR MD DR: NATAN/alfredo JOB#: [id number] / [id number]
[2018-07-18] MEDS: LEVOTHYROXINE 88 MCG TABLET PO SCH (05:37)
[2018-07-18 06:08] VITALS: BP 132/72
[2018-07-18] MEDS: RIVASTIGMINE 3 MG CAPSULE. PO SCH ×2 (08:52→19:34)
[2018-07-18] MEDS: MEMANTINE 10 MG TABLET. PO SCH ×2 (08:52→19:47)
[2018-07-18] MEDS: TAMSULOSIN 0.4 MG CAP.ER.24H. PO SCH (08:52)
[2018-07-18] MEDS: DIVALPROEX 125 MG CAP.SPRINK PO SCH ×2 (08:52→16:19)
[2018-07-18] MEDS: QUEtiapine 25 MG TABLET. PO SCH ×3 (08:52→19:47)
[2018-07-18 15:54] VITALS: BP 120/68
[2018-07-18] MEDS: MIRTAZAPINE 7.5 MG TABLET. PO SCH (19:34)
[2018-07-18] MEDS: traZODone 50 MG TABLET. PO PRN (19:47)
--- NOTE | 2018-07-18 22:21 | PDOC ---
Exam Note: Justin Note: Please also refer to the separate dictated note~for this date of service dictated separately.~Patient seen individually. Discussed the patient with Nursing staff reviewed the chart.~Reviewed interim history and current functioning. Reviewed vital signs,~Labs/ Radiology~and current medications noted below. Continue current treatment with the changes noted in the dictated addendum note Assessment: Vital Signs: Vital Signs Date Time Temp Pulse Resp B/P (MAP) Pulse Ox O2 Delivery O2 Flow Rate FiO2 07/18/18 15:54 98.0 64 22 120/68 (85) 97 Room Air I&O Intake and Output 07/18/18 07:01 Intake Total 480 ml Balance 480 ml Intake Oral 480 ml Current Medications: Meds: Current Medications Lorazepam (Ativan) 2 mg 1X ONCE PO Last administered on 06/17/18 19:54; Start 06/17/18 at 20:15; Stop 06/17/18 at 20:16; Status DC Acetaminophen (Tylenol) 650 mg PRN Q6HRS PRN PO PAIN / TEMP Last administered on 07/08/18 11:59; Start 06/17/18 at 21:30 Multi-Ingredient Ointment (Analgesic [place]) 1 alan PRN QID PRN TP MUSCLE PAIN Last administered on 06/24/18 13:11; Start 06/17/18 at 21:30 Al Hydroxide/Mg Hydroxide (Mylanta Plus Xs) 15 ml PRN AFTMEALHC PRN PO DYSPEPSIA Last administered on 07/09/18 17:03; Start 06/17/18 at 21:30 Magnesium Hydroxide (Milk Of Magnesia) 2,400 mg PRN QHS PRN PO CONSTIPATION Last administered on 07/16/18 19:44; Start 06/17/18 at 21:30 Trazodone HCl (Desyrel) 25 mg PRN QHS PRN PO INSOMNIA Last administered on 19:47; Start 06/17/18 at 21:30 Olanzapine (ZyPREXA ZYDIS) 2.5 mg PRN Q2HR PRN PO PSYCHOSIS Last administered on 07/18/18 16:24; Start 06/17/18 at 21:30 Citalopram Hydrobromide (CeleXA) 40 mg DAILY PO Last administered on 06/19/18 08:09; Start 06/18/18 at 09:00; Stop 06/19/18 at 16:58; Status DC Memantine (Namenda) 10 mg BID PO Last administered on 07/18/18 19:47; Start 06/18/18 at 09:00 Rivastigmine Tartrate (Exelon) 1.5 mg BIDWMEALS PO Last administered on 07:47; Start 06/18/18 at 08:00; Stop 06/23/18 at 16:38; Status DC Levothyroxine Sodium (Synthroid) 88 mcg DAILYAC PO Last administered on 08:11; Start 06/18/18 at 07:30; Stop 06/19/18 at 17:40; Status DC Tamsulosin HCl (Flomax) 0.4 mg DAILY PO Last administered on 07/18/18 08:52; Start 06/18/18 at 09:00 Hydroxyzine HCl (Atarax) 25 mg PRN Q2HR PRN PO ANXIETY / AGITATION Last administered on 06/21/18 18:40; Start 06/18/18 at 23:00; Stop 06/21/18 at 20:10; Status DC Carbamide Peroxide (Debrox) 5 drop BID AU Last administered on 06/24/18 11:00; Start 06/19/18 at 21:00; Stop 06/24/18 at 20:59; Status DC Mirtazapine (Remeron) 7.5 mg QHS PO Last administered on 06/22/18 19:17; Start 06/19/18 at 21:00; Stop 06/23/18 at 18:12; Status DC Sertraline HCl (Zoloft) 50 mg DAILY PO Last administered on 06/24/18 10:56; Start 06/20/18 at 09:00; Stop 06/24/18 at 18:42; Status DC Quetiapine Fumarate (SEROquel) 12.5 mg 0900,1700 PO Last administered on 16:23; Start 06/19/18 at 17:00; Stop 06/22/18 at 16:55; Status DC Levothyroxine Sodium (Synthroid) 88 mcg DAILY06 PO Last administered on 05:37; Start 06/20/18 at 06:00 Quetiapine Fumarate (SEROquel) 12.5 mg BID92 PO ; Start 06/23/18 at 09:00; Stop 06/23/18 at 09:00; Status DC Quetiapine Fumarate (SEROquel) 25 mg DAILY@1900 PO ; Start 06/22/18 at 19:00; Stop 06/22/18 at 19:00; Status DC Quetiapine Fumarate (SEROquel) 12.5 mg BID@0900,1500 PO Last administered on 06/24/18at 16:33; Start 06/23/18 at 09:00; Stop 06/24/18 at 18:46; Status DC Quetiapine Fumarate (SEROquel) 25 mg STK-MED ONCE .ROUTE ; Start 06/22/18 at 17: 12; Stop 06/22/18 at 17:14; Status DC Quetiapine Fumarate (SEROquel) 12.5 mg DAILY@1900 PO Last administered on at 18:16; Start 06/22/18 at 19:00; Stop 06/24/18 at 18:46; Status DC Rivastigmine Tartrate (Exelon) 1.5 mg DAILY PO Last administered on 06/24/18at 10 :58; Start 06/24/18 at 09:00; Stop 06/24/18 at 14:14; Status DC Rivastigmine Tartrate (Exelon) 3 mg HS PO ; Start 06/23/18 at 21:00; Stop at 21:00; Status DC Rivastigmine Tartrate (Exelon) 3 mg BIDWMEALS PO Last administered on 06/24/18at 10:54; Start 06/23/18 at 17:00; Stop 06/24/18 at 14:14; Status DC Rivastigmine Tartrate (Exelon) 3 mg HS PO ; Start 06/27/18 at 09:00; Stop at 09:00; Status DC Nystatin (Nystop) 1 alan BID TP Last administered on 07/14/18at 20:58; Start 06/23 at 21:00; Stop 07/14/18 at 21:27; Status DC Mirtazapine (Remeron) 15 mg QHS PO Last administered on 07/08/18 21:01; Start 06/23/18 at 21:00; Stop 07/09/18 at 17:52; Status DC Nystatin (Nystop) 15 alan STK-MED ONCE TP Last administered on 06/23/18 19:15; Start 06/23/18 at 19:15; Stop 06/23/18 at 19:17; Status DC Rivastigmine Tartrate (Exelon) 3 mg BID PO Last administered on 07/18/18 19:34 ; Start 06/24/18 at 21:00 Fluvoxamine Maleate (Luvox) 25 mg QHS PO Last administered on 06/25/18 19:22; Start 06/24/18 at 21:00; Stop 06/26/18 at 19:00; Status DC Fluvoxamine Maleate (Luvox) 50 mg QHS PO Last administered on 06/30/18at 19:36; Start 06/26/18 at 21:00; Stop 07/01/18 at 20:00; Status DC Quetiapine Fumarate (SEROquel) 25 mg DAILY@1900 PO Last administered on 19:47; Start 06/24/18 at 19:00 Quetiapine Fumarate (SEROquel) 25 mg BID@0900,1500 PO Last administered on 16:19; Start 06/25/18 at 09:00 Bisacodyl (Dulcolax Supp) 10 mg PRN DAILY PRN [place] CONSTIPATION Last administered on 06/27/18at 11:54; Start 06/27/18 at 10:30 Fluvoxamine Maleate (Luvox) 75 mg QHS PO Last administered on 07/13/18 19:16; Start 07/01/18 at 21:00; Stop 07/13/18 at 19:43; Status DC Divalproex Sodium (Depakote Sprinkles) 125 mg BID@0900,1700 PO Last administered on 07/18/18 16:19; Start 06/30/18 at 17:00 Mirtazapine (Remeron) 7.5 mg QHS PO Last administered on 07/18/18 19:34; Start 07/09/18 at 21:00 Fluvoxamine Maleate (Luvox) 100 mg QHS PO Last administered on 07/18/18at 19:34; Start 07/13/18 at 21:00 Nystatin (Nystop) 1 alan PRN BID PRN TP skin rash; Start 07/14/18 at 21:30 Active Scripts Active Reported Tamsulosin Hcl 0.4 Mg Cap.er.24h 0.4 Mg PO DAILY Levothyroxine Sodium 88 Mcg Tablet 88 Mcg PO DAILYAC Escitalopram Oxalate 20 Mg Tablet 20 Mg PO DAILY Rivastigmine (Rivastigmine Tartrate) 1.5 Mg Capsule 1.5 Mg PO BID Namenda Xr (Memantine Hcl) 28 Mg Cap.spr.24 28 Mg PO DAILY I have reviewed the current psychotropics carefully including drug interactions. Risk benefit ratio favors no change other than as noted in my dictated progress note. Diagnosis: Problems: (1) Mental status alteration (2) Anxiety disorder (3) Dementia in Alzheimer's disease with delusions (4) Dementia in Alzheimer's disease with depression (5) Dementia, vascular, with delusions (6) Dementia, vascular, with depression (7) Impulse control disorder MILAN TAYLOR MD Jul 18, 2018 22:21
[2018-07-19] MEDS: LEVOTHYROXINE 88 MCG TABLET PO SCH (04:54)
[2018-07-19 06:00] VITALS: BP 107/63
[2018-07-19] MEDS: DIVALPROEX 125 MG CAP.SPRINK PO SCH ×2 (08:30→17:08)
[2018-07-19] MEDS: MEMANTINE 10 MG TABLET. PO SCH ×2 (08:30→19:48)
[2018-07-19] MEDS: TAMSULOSIN 0.4 MG CAP.ER.24H. PO SCH (08:30)
[2018-07-19] MEDS: RIVASTIGMINE 3 MG CAPSULE. PO SCH ×2 (08:30→19:48)
[2018-07-19] MEDS: QUEtiapine 25 MG TABLET. PO SCH ×3 (08:31→19:49)
[2018-07-19 16:02] VITALS: BP 108/67
[2018-07-19] MEDS: MIRTAZAPINE 7.5 MG TABLET. PO SCH (19:48)
[2018-07-19] MEDS: traZODone 50 MG TABLET. PO PRN (19:50)
--- NOTE | 2018-07-19 20:03 | PN ---
DATE: 07/17/2018 PSYCHIATRIC PROGRESS NOTE This late entry 07/17/2018 covers elements not covered in my initial note. SUBJECTIVE: I met with the patient in the evening. The patient slept 6-1/2 hours previous night. The patient remains confused, somewhat withdrawn. REVIEW OF SYSTEMS: No CV, , pulmonary, eye, ENT system symptoms on review. Reliability poor. MENTAL STATUS EXAM: Oriented to herself. Insight, judgment, recent and remote memory, attention, concentration, fund of knowledge poor, consistent with his diagnosis. LABORATORY DATA: Reviewed. IMPRESSION: Major neurocognitive disorder, Alzheimer, vascular with delusion, depression, behavioral disturbance. Rest unchanged. PLAN: No change from initial note. MILAN TAYLOR MD DR: NATAN/alfredo JOB#: [id number] / [id number]
[2018-07-19] MEDS: MAGNESIUM HYDROXIDE 2,400 MG/30 ML ORAL.SUSP. PO PRN (20:09)
--- NOTE | 2018-07-19 22:24 | PDOC ---
Exam Note: Justin Note: Please also refer to the separate dictated note~for this date of service dictated separately.~Patient seen individually. Discussed the patient with Nursing staff reviewed the chart.~Reviewed interim history and current functioning. Reviewed vital signs,~Labs/ Radiology~and current medications noted below. Continue current treatment with the changes noted in the dictated addendum note Assessment: Vital Signs: Vital Signs Date Time Temp Pulse Resp B/P (MAP) Pulse Ox O2 Delivery O2 Flow Rate FiO2 07/19/18 16:02 98.7 71 20 108/67 (81) 95 Room Air I&O Intake and Output 07/19/18 07:01 Intake Total 840 ml Balance 840 ml Intake Oral 840 ml Current Medications: Meds: Current Medications Lorazepam (Ativan) 2 mg 1X ONCE PO Last administered on 06/17/18 19:54; Start 06/17/18 at 20:15; Stop 06/17/18 at 20:16; Status DC Acetaminophen (Tylenol) 650 mg PRN Q6HRS PRN PO PAIN / TEMP Last administered on 07/08/18 11:59; Start 06/17/18 at 21:30 Multi-Ingredient Ointment (Analgesic [place]) 1 alan PRN QID PRN TP MUSCLE PAIN Last administered on 06/24/18 13:11; Start 06/17/18 at 21:30 Al Hydroxide/Mg Hydroxide (Mylanta Plus Xs) 15 ml PRN AFTMEALHC PRN PO DYSPEPSIA Last administered on 07/09/18 17:03; Start 06/17/18 at 21:30 Magnesium Hydroxide (Milk Of Magnesia) 2,400 mg PRN QHS PRN PO CONSTIPATION Last administered on 07/19/18 20:09; Start 06/17/18 at 21:30 Trazodone HCl (Desyrel) 25 mg PRN QHS PRN PO INSOMNIA Last administered on 19:50; Start 06/17/18 at 21:30 Olanzapine (ZyPREXA ZYDIS) 2.5 mg PRN Q2HR PRN PO PSYCHOSIS Last administered on 07/19/18 20:50; Start 06/17/18 at 21:30 Citalopram Hydrobromide (CeleXA) 40 mg DAILY PO Last administered on 06/19/18 08:09; Start 06/18/18 at 09:00; Stop 06/19/18 at 16:58; Status DC Memantine (Namenda) 10 mg BID PO Last administered on 07/19/18 19:48; Start 06/18/18 at 09:00 Rivastigmine Tartrate (Exelon) 1.5 mg BIDWMEALS PO Last administered on 07:47; Start 06/18/18 at 08:00; Stop 06/23/18 at 16:38; Status DC Levothyroxine Sodium (Synthroid) 88 mcg DAILYAC PO Last administered on 08:11; Start 06/18/18 at 07:30; Stop 06/19/18 at 17:40; Status DC Tamsulosin HCl (Flomax) 0.4 mg DAILY PO Last administered on 07/19/18 08:30; Start 06/18/18 at 09:00 Hydroxyzine HCl (Atarax) 25 mg PRN Q2HR PRN PO ANXIETY / AGITATION Last administered on 06/21/18 18:40; Start 06/18/18 at 23:00; Stop 06/21/18 at 20:10; Status DC Carbamide Peroxide (Debrox) 5 drop BID AU Last administered on 06/24/18 11:00; Start 06/19/18 at 21:00; Stop 06/24/18 at 20:59; Status DC Mirtazapine (Remeron) 7.5 mg QHS PO Last administered on 06/22/18 19:17; Start 06/19/18 at 21:00; Stop 06/23/18 at 18:12; Status DC Sertraline HCl (Zoloft) 50 mg DAILY PO Last administered on 06/24/18 10:56; Start 06/20/18 at 09:00; Stop 06/24/18 at 18:42; Status DC Quetiapine Fumarate (SEROquel) 12.5 mg 0900,1700 PO Last administered on 16:23; Start 06/19/18 at 17:00; Stop 06/22/18 at 16:55; Status DC Levothyroxine Sodium (Synthroid) 88 mcg DAILY06 PO Last administered on 04:54; Start 06/20/18 at 06:00 Quetiapine Fumarate (SEROquel) 12.5 mg BID92 PO ; Start 06/23/18 at 09:00; Stop 06/23/18 at 09:00; Status DC Quetiapine Fumarate (SEROquel) 25 mg DAILY@1900 PO ; Start 06/22/18 at 19:00; Stop 06/22/18 at 19:00; Status DC Quetiapine Fumarate (SEROquel) 12.5 mg BID@0900,1500 PO Last administered on 06/24/18at 16:33; Start 06/23/18 at 09:00; Stop 06/24/18 at 18:46; Status DC Quetiapine Fumarate (SEROquel) 25 mg STK-MED ONCE .ROUTE ; Start 06/22/18 at 17: 12; Stop 06/22/18 at 17:14; Status DC Quetiapine Fumarate (SEROquel) 12.5 mg DAILY@1900 PO Last administered on at 18:16; Start 06/22/18 at 19:00; Stop 06/24/18 at 18:46; Status DC Rivastigmine Tartrate (Exelon) 1.5 mg DAILY PO Last administered on 06/24/18at 10 :58; Start 06/24/18 at 09:00; Stop 06/24/18 at 14:14; Status DC Rivastigmine Tartrate (Exelon) 3 mg HS PO ; Start 06/23/18 at 21:00; Stop at 21:00; Status DC Rivastigmine Tartrate (Exelon) 3 mg BIDWMEALS PO Last administered on 06/24/18at 10:54; Start 06/23/18 at 17:00; Stop 06/24/18 at 14:14; Status DC Rivastigmine Tartrate (Exelon) 3 mg HS PO ; Start 06/27/18 at 09:00; Stop at 09:00; Status DC Nystatin (Nystop) 1 alan BID TP Last administered on 07/14/18at 20:58; Start 06/23 at 21:00; Stop 07/14/18 at 21:27; Status DC Mirtazapine (Remeron) 15 mg QHS PO Last administered on 07/08/18 21:01; Start 06/23/18 at 21:00; Stop 07/09/18 at 17:52; Status DC Nystatin (Nystop) 15 alan STK-MED ONCE TP Last administered on 06/23/18 19:15; Start 06/23/18 at 19:15; Stop 06/23/18 at 19:17; Status DC Rivastigmine Tartrate (Exelon) 3 mg BID PO Last administered on 07/19/18 19:48 ; Start 06/24/18 at 21:00 Fluvoxamine Maleate (Luvox) 25 mg QHS PO Last administered on 06/25/18 19:22; Start 06/24/18 at 21:00; Stop 06/26/18 at 19:00; Status DC Fluvoxamine Maleate (Luvox) 50 mg QHS PO Last administered on 06/30/18at 19:36; Start 06/26/18 at 21:00; Stop 07/01/18 at 20:00; Status DC Quetiapine Fumarate (SEROquel) 25 mg DAILY@1900 PO Last administered on 19:49; Start 06/24/18 at 19:00 Quetiapine Fumarate (SEROquel) 25 mg BID@0900,1500 PO Last administered on 15:07; Start 06/25/18 at 09:00 Bisacodyl (Dulcolax Supp) 10 mg PRN DAILY PRN [place] CONSTIPATION Last administered on 06/27/18 11:54; Start 06/27/18 at 10:30 Fluvoxamine Maleate (Luvox) 75 mg QHS PO Last administered on 07/13/18 19:16; Start 07/01/18 at 21:00; Stop 07/13/18 at 19:43; Status DC Divalproex Sodium (Depakote Sprinkles) 125 mg BID@0900,1700 PO Last administered on 07/19/18 17:08; Start 06/30/18 at 17:00 Mirtazapine (Remeron) 7.5 mg QHS PO Last administered on 07/19/18 19:48; Start 07/09/18 at 21:00 Fluvoxamine Maleate (Luvox) 100 mg QHS PO Last administered on 07/19/18at 19:48; Start 07/13/18 at 21:00 Nystatin (Nystop) 1 alan PRN BID PRN TP skin rash; Start 07/14/18 at 21:30 Active Scripts Active Reported Tamsulosin Hcl 0.4 Mg Cap.er.24h 0.4 Mg PO DAILY Levothyroxine Sodium 88 Mcg Tablet 88 Mcg PO DAILYAC Escitalopram Oxalate 20 Mg Tablet 20 Mg PO DAILY Rivastigmine (Rivastigmine Tartrate) 1.5 Mg Capsule 1.5 Mg PO BID Namenda Xr (Memantine Hcl) 28 Mg Cap.spr.24 28 Mg PO DAILY I have reviewed the current psychotropics carefully including drug interactions. Risk benefit ratio favors no change other than as noted in my dictated progress note. Diagnosis: Problems: (1) Mental status alteration (2) Anxiety disorder (3) Dementia in Alzheimer's disease with delusions (4) Dementia in Alzheimer's disease with depression (5) Dementia, vascular, with delusions (6) Dementia, vascular, with depression (7) Impulse control disorder MILAN TAYLOR MD Jul 19, 2018 22:24
[2018-07-20] MEDS: LEVOTHYROXINE 88 MCG TABLET PO SCH (05:51)
[2018-07-20 06:08] VITALS: BP 144/71
[2018-07-20] MEDS: MEMANTINE 10 MG TABLET. PO SCH ×2 (07:27→19:30)
[2018-07-20] MEDS: DIVALPROEX 125 MG CAP.SPRINK PO SCH ×2 (07:27→16:30)
[2018-07-20] MEDS: TAMSULOSIN 0.4 MG CAP.ER.24H. PO SCH (07:28)
[2018-07-20] MEDS: QUEtiapine 25 MG TABLET. PO SCH ×3 (07:28→19:29)
[2018-07-20] MEDS: RIVASTIGMINE 3 MG CAPSULE. PO SCH ×2 (07:28→19:29)
[2018-07-20 16:11] VITALS: BP 110/68
[2018-07-20] MEDS: MIRTAZAPINE 7.5 MG TABLET. PO SCH (19:30)
--- NOTE | 2018-07-20 20:03 | PN ---
DATE: 07/18/2018 PSYCHIATRIC PROGRESS NOTE This late entry 07/18/2018 covers elements not covered in my initial note. SUBJECTIVE: I met with the patient in the evening. The patient slept 4-1/2 hours previous night. He remains confused, has had some intrusive behaviors, walking into other patient's rooms, aggressive with peers, had to be in the [facility]. REVIEW OF SYSTEMS: No CV, , pulmonary, eye, ENT system symptoms on review. MENTAL STATUS EXAM: Oriented to himself. Insight, judgment, recent and remote memory, attention, concentration, fund of knowledge poor, consistent with his diagnosis mentioned in my initial note. PLAN: No change from initial note, but if behaviors persist, we may have to adjust the Seroquel and/or Depakote. MAN Connie TAYLOR MD DR: NATAN/alfredo JOB#: [id number] / [id number]
--- NOTE | 2018-07-20 22:30 | PDOC ---
Exam Note: Justin Note: Please also refer to the separate dictated note~for this date of service dictated separately.~Patient seen individually. Discussed the patient with Nursing staff reviewed the chart.~Reviewed interim history and current functioning. Reviewed vital signs,~Labs/ Radiology~and current medications noted below. Continue current treatment with the changes noted in the dictated addendum note Assessment: Vital Signs: Vital Signs Date Time Temp Pulse Resp B/P (MAP) Pulse Ox O2 Delivery O2 Flow Rate FiO2 07/20/18 16:11 97.8 70 19 110/68 (82) 97 07/19/18 16:02 Room Air I&O Intake and Output 07/20/18 07:01 Intake Total 840 ml Balance 840 ml Intake Oral 840 ml Current Medications: Meds: Current Medications Lorazepam (Ativan) 2 mg 1X ONCE PO Last administered on 06/17/18 19:54; Start 06/17/18 at 20:15; Stop 06/17/18 at 20:16; Status DC Acetaminophen (Tylenol) 650 mg PRN Q6HRS PRN PO PAIN / TEMP Last administered on 07/08/18 11:59; Start 06/17/18 at 21:30 Multi-Ingredient Ointment (Analgesic [place]) 1 alan PRN QID PRN TP MUSCLE PAIN Last administered on 06/24/18 13:11; Start 06/17/18 at 21:30 Al Hydroxide/Mg Hydroxide (Mylanta Plus Xs) 15 ml PRN AFTMEALHC PRN PO DYSPEPSIA Last administered on 07/09/18 17:03; Start 06/17/18 at 21:30 Magnesium Hydroxide (Milk Of Magnesia) 2,400 mg PRN QHS PRN PO CONSTIPATION Last administered on 07/19/18 20:09; Start 06/17/18 at 21:30 Trazodone HCl (Desyrel) 25 mg PRN QHS PRN PO INSOMNIA Last administered on 19:50; Start 06/17/18 at 21:30 Olanzapine (ZyPREXA ZYDIS) 2.5 mg PRN Q2HR PRN PO PSYCHOSIS Last administered on 07/19/18 20:50; Start 06/17/18 at 21:30 Citalopram Hydrobromide (CeleXA) 40 mg DAILY PO Last administered on 06/19/18 08:09; Start 06/18/18 at 09:00; Stop 06/19/18 at 16:58; Status DC Memantine (Namenda) 10 mg BID PO Last administered on 07/20/18 19:30; Start 06/18/18 at 09:00 Rivastigmine Tartrate (Exelon) 1.5 mg BIDWMEALS PO Last administered on 07:47; Start 06/18/18 at 08:00; Stop 06/23/18 at 16:38; Status DC Levothyroxine Sodium (Synthroid) 88 mcg DAILYAC PO Last administered on 08:11; Start 06/18/18 at 07:30; Stop 06/19/18 at 17:40; Status DC Tamsulosin HCl (Flomax) 0.4 mg DAILY PO Last administered on 07/20/18 07:28; Start 06/18/18 at 09:00 Hydroxyzine HCl (Atarax) 25 mg PRN Q2HR PRN PO ANXIETY / AGITATION Last administered on 06/21/18 18:40; Start 06/18/18 at 23:00; Stop 06/21/18 at 20:10; Status DC Carbamide Peroxide (Debrox) 5 drop BID AU Last administered on 06/24/18 11:00; Start 06/19/18 at 21:00; Stop 06/24/18 at 20:59; Status DC Mirtazapine (Remeron) 7.5 mg QHS PO Last administered on 06/22/18 19:17; Start 06/19/18 at 21:00; Stop 06/23/18 at 18:12; Status DC Sertraline HCl (Zoloft) 50 mg DAILY PO Last administered on 06/24/18 10:56; Start 06/20/18 at 09:00; Stop 06/24/18 at 18:42; Status DC Quetiapine Fumarate (SEROquel) 12.5 mg 0900,1700 PO Last administered on 16:23; Start 06/19/18 at 17:00; Stop 06/22/18 at 16:55; Status DC Levothyroxine Sodium (Synthroid) 88 mcg DAILY06 PO Last administered on 2/4/ 19at 05:51; Start 06/20/18 at 06:00 Quetiapine Fumarate (SEROquel) 12.5 mg BID92 PO ; Start 06/23/18 at 09:00; Stop 06/23/18 at 09:00; Status DC Quetiapine Fumarate (SEROquel) 25 mg DAILY@1900 PO ; Start 06/22/18 at 19:00; Stop 06/22/18 at 19:00; Status DC Quetiapine Fumarate (SEROquel) 12.5 mg BID@0900,1500 PO Last administered on 06/24/18at 16:33; Start 06/23/18 at 09:00; Stop 06/24/18 at 18:46; Status DC Quetiapine Fumarate (SEROquel) 25 mg STK-MED ONCE .ROUTE ; Start 06/22/18 at 17: 12; Stop 06/22/18 at 17:14; Status DC Quetiapine Fumarate (SEROquel) 12.5 mg DAILY@1900 PO Last administered on at 18:16; Start 06/22/18 at 19:00; Stop 06/24/18 at 18:46; Status DC Rivastigmine Tartrate (Exelon) 1.5 mg DAILY PO Last administered on 06/24/18at 10 :58; Start 06/24/18 at 09:00; Stop 06/24/18 at 14:14; Status DC Rivastigmine Tartrate (Exelon) 3 mg HS PO ; Start 06/23/18 at 21:00; Stop at 21:00; Status DC Rivastigmine Tartrate (Exelon) 3 mg BIDWMEALS PO Last administered on 06/24/18at 10:54; Start 06/23/18 at 17:00; Stop 06/24/18 at 14:14; Status DC Rivastigmine Tartrate (Exelon) 3 mg HS PO ; Start 06/27/18 at 09:00; Stop at 09:00; Status DC Nystatin (Nystop) 1 alan BID TP Last administered on 07/14/18at 20:58; Start 06/23 at 21:00; Stop 07/14/18 at 21:27; Status DC Mirtazapine (Remeron) 15 mg QHS PO Last administered on 07/08/18 21:01; Start 06/23/18 at 21:00; Stop 07/09/18 at 17:52; Status DC Nystatin (Nystop) 15 alan STK-MED ONCE TP Last administered on 06/23/18 19:15; Start 06/23/18 at 19:15; Stop 06/23/18 at 19:17; Status DC Rivastigmine Tartrate (Exelon) 3 mg BID PO Last administered on 07/20/18 19:29 ; Start 06/24/18 at 21:00 Fluvoxamine Maleate (Luvox) 25 mg QHS PO Last administered on 06/25/18 19:22; Start 06/24/18 at 21:00; Stop 06/26/18 at 19:00; Status DC Fluvoxamine Maleate (Luvox) 50 mg QHS PO Last administered on 06/30/18 19:36; Start 06/26/18 at 21:00; Stop 07/01/18 at 20:00; Status DC Quetiapine Fumarate (SEROquel) 25 mg DAILY@1900 PO Last administered on 19:29; Start 06/24/18 at 19:00 Quetiapine Fumarate (SEROquel) 25 mg BID@0900,1500 PO Last administered on 14:43; Start 06/25/18 at 09:00 Bisacodyl (Dulcolax Supp) 10 mg PRN DAILY PRN [place] CONSTIPATION Last administered on 06/27/18at 11:54; Start 06/27/18 at 10:30 Fluvoxamine Maleate (Luvox) 75 mg QHS PO Last administered on 07/13/18 19:16; Start 07/01/18 at 21:00; Stop 07/13/18 at 19:43; Status DC Divalproex Sodium (Depakote Sprinkles) 125 mg BID@0900,1700 PO Last administered on 07/20/18 16:30; Start 06/30/18 at 17:00 Mirtazapine (Remeron) 7.5 mg QHS PO Last administered on 07/20/18 19:30; Start 07/09/18 at 21:00 Fluvoxamine Maleate (Luvox) 100 mg QHS PO Last administered on 07/20/18at 19:32; Start 07/13/18 at 21:00 Nystatin (Nystop) 1 alan PRN BID PRN TP skin rash; Start 07/14/18 at 21:30 Active Scripts Active Reported Tamsulosin Hcl 0.4 Mg Cap.er.24h 0.4 Mg PO DAILY Levothyroxine Sodium 88 Mcg Tablet 88 Mcg PO DAILYAC Escitalopram Oxalate 20 Mg Tablet 20 Mg PO DAILY Rivastigmine (Rivastigmine Tartrate) 1.5 Mg Capsule 1.5 Mg PO BID Namenda Xr (Memantine Hcl) 28 Mg Cap.spr.24 28 Mg PO DAILY I have reviewed the current psychotropics carefully including drug interactions. Risk benefit ratio favors no change other than as noted in my dictated progress note. Diagnosis: Problems: (1) Mental status alteration (2) Anxiety disorder (3) Dementia in Alzheimer's disease with delusions (4) Dementia in Alzheimer's disease with depression (5) Dementia, vascular, with delusions (6) Dementia, vascular, with depression (7) Impulse control disorder MILAN TAYLOR MD Jul 20, 2018 22:30
--- NOTE | 2018-07-20 22:35 | PN ---
DATE: 07/19/2018 This late entry for 07/19/2018 covers elements not covered in my initial note. SUBJECTIVE: I met with the patient in the evening. The patient slept 6-1/4 hours previous night. He did well in the morning, but by the evening, he was quite agitated, anxious, restless. He had to be placed in the [place] Hallway to be quiet, away from others and that is where I met with him. He did receive Zyprexa Zydis earlier, but relief. REVIEW OF SYSTEMS: No CV, , pulmonary, eye, ENT system symptoms on review. Reliability poor. MENTAL STATUS EXAM: Oriented to himself. Insight, judgment, recent and remote memory, attention, concentration, fund of knowledge poor, consistent with his diagnosis mentioned in my initial note. PLAN: No change from initial note. MAN Connie TAYLOR MD DR: NATAN/alfredo JOB#: [id number] / [id number]
[2018-07-21 06:13] VITALS: BP 147/62
[2018-07-21] MEDS: LEVOTHYROXINE 88 MCG TABLET PO SCH (06:20)
[2018-07-21] MEDS: DIVALPROEX 125 MG CAP.SPRINK PO SCH ×2 (08:34→16:36)
[2018-07-21] MEDS: TAMSULOSIN 0.4 MG CAP.ER.24H. PO SCH (08:34)
[2018-07-21] MEDS: QUEtiapine 25 MG TABLET. PO SCH ×3 (08:34→19:36)
[2018-07-21] MEDS: MEMANTINE 10 MG TABLET. PO SCH ×2 (08:34→19:36)
[2018-07-21] MEDS: RIVASTIGMINE 3 MG CAPSULE. PO SCH ×2 (08:34→19:36)
[2018-07-21] MEDS: MAGNESIUM HYDROXIDE 2,400 MG/30 ML ORAL.SUSP. PO PRN (16:36)
[2018-07-21 16:56] VITALS: BP 134/66
[2018-07-21] MEDS: MIRTAZAPINE 7.5 MG TABLET. PO SCH (19:35)
--- NOTE | 2018-07-21 22:42 | PDOC ---
Exam Note: Justin Note: Please also refer to the separate dictated note~for this date of service dictated separately.~Patient seen individually. Discussed the patient with Nursing staff reviewed the chart.~Reviewed interim history and current functioning. Reviewed vital signs,~Labs/ Radiology~and current medications noted below. Continue current treatment with the changes noted in the dictated addendum note Assessment: Vital Signs: Vital Signs Date Time Temp Pulse Resp B/P (MAP) Pulse Ox O2 Delivery O2 Flow Rate FiO2 07/21/18 16:56 97.4 51 20 134/66 (88) 96 07/19/18 16:02 Room Air I&O Intake and Output 07/21/18 07:01 Intake Total 1080 ml Balance 1080 ml Intake Oral 1080 ml Current Medications: Meds: Current Medications Lorazepam (Ativan) 2 mg 1X ONCE PO Last administered on 06/17/18 19:54; Start 06/17/18 at 20:15; Stop 06/17/18 at 20:16; Status DC Acetaminophen (Tylenol) 650 mg PRN Q6HRS PRN PO PAIN / TEMP Last administered on 07/08/18 11:59; Start 06/17/18 at 21:30 Multi-Ingredient Ointment (Analgesic [place]) 1 alan PRN QID PRN TP MUSCLE PAIN Last administered on 06/24/18 13:11; Start 06/17/18 at 21:30 Al Hydroxide/Mg Hydroxide (Mylanta Plus Xs) 15 ml PRN AFTMEALHC PRN PO DYSPEPSIA Last administered on 07/09/18 17:03; Start 06/17/18 at 21:30 Magnesium Hydroxide (Milk Of Magnesia) 2,400 mg PRN QHS PRN PO CONSTIPATION Last administered on 07/21/18 16:36; Start 06/17/18 at 21:30 Trazodone HCl (Desyrel) 25 mg PRN QHS PRN PO INSOMNIA Last administered on 19:50; Start 06/17/18 at 21:30 Olanzapine (ZyPREXA ZYDIS) 2.5 mg PRN Q2HR PRN PO PSYCHOSIS Last administered on 07/19/18 20:50; Start 06/17/18 at 21:30 Citalopram Hydrobromide (CeleXA) 40 mg DAILY PO Last administered on 06/19/18 08:09; Start 06/18/18 at 09:00; Stop 06/19/18 at 16:58; Status DC Memantine (Namenda) 10 mg BID PO Last administered on 07/21/18 19:36; Start 06/18/18 at 09:00 Rivastigmine Tartrate (Exelon) 1.5 mg BIDWMEALS PO Last administered on 07:47; Start 06/18/18 at 08:00; Stop 06/23/18 at 16:38; Status DC Levothyroxine Sodium (Synthroid) 88 mcg DAILYAC PO Last administered on 08:11; Start 06/18/18 at 07:30; Stop 06/19/18 at 17:40; Status DC Tamsulosin HCl (Flomax) 0.4 mg DAILY PO Last administered on 07/21/18 08:34; Start 06/18/18 at 09:00 Hydroxyzine HCl (Atarax) 25 mg PRN Q2HR PRN PO ANXIETY / AGITATION Last administered on 06/21/18 18:40; Start 06/18/18 at 23:00; Stop 06/21/18 at 20:10; Status DC Carbamide Peroxide (Debrox) 5 drop BID AU Last administered on 06/24/18 11:00; Start 06/19/18 at 21:00; Stop 06/24/18 at 20:59; Status DC Mirtazapine (Remeron) 7.5 mg QHS PO Last administered on 06/22/18 19:17; Start 06/19/18 at 21:00; Stop 06/23/18 at 18:12; Status DC Sertraline HCl (Zoloft) 50 mg DAILY PO Last administered on 06/24/18 10:56; Start 06/20/18 at 09:00; Stop 06/24/18 at 18:42; Status DC Quetiapine Fumarate (SEROquel) 12.5 mg 0900,1700 PO Last administered on 16:23; Start 06/19/18 at 17:00; Stop 06/22/18 at 16:55; Status DC Levothyroxine Sodium (Synthroid) 88 mcg DAILY06 PO Last administered on 2/5/ 19at 06:20; Start 06/20/18 at 06:00 Quetiapine Fumarate (SEROquel) 12.5 mg BID92 PO ; Start 06/23/18 at 09:00; Stop 06/23/18 at 09:00; Status DC Quetiapine Fumarate (SEROquel) 25 mg DAILY@1900 PO ; Start 06/22/18 at 19:00; Stop 06/22/18 at 19:00; Status DC Quetiapine Fumarate (SEROquel) 12.5 mg BID@0900,1500 PO Last administered on 06/24/18at 16:33; Start 06/23/18 at 09:00; Stop 06/24/18 at 18:46; Status DC Quetiapine Fumarate (SEROquel) 25 mg STK-MED ONCE .ROUTE ; Start 06/22/18 at 17: 12; Stop 06/22/18 at 17:14; Status DC Quetiapine Fumarate (SEROquel) 12.5 mg DAILY@1900 PO Last administered on at 18:16; Start 06/22/18 at 19:00; Stop 06/24/18 at 18:46; Status DC Rivastigmine Tartrate (Exelon) 1.5 mg DAILY PO Last administered on 06/24/18at 10 :58; Start 06/24/18 at 09:00; Stop 06/24/18 at 14:14; Status DC Rivastigmine Tartrate (Exelon) 3 mg HS PO ; Start 06/23/18 at 21:00; Stop at 21:00; Status DC Rivastigmine Tartrate (Exelon) 3 mg BIDWMEALS PO Last administered on 06/24/18at 10:54; Start 06/23/18 at 17:00; Stop 06/24/18 at 14:14; Status DC Rivastigmine Tartrate (Exelon) 3 mg HS PO ; Start 06/27/18 at 09:00; Stop at 09:00; Status DC Nystatin (Nystop) 1 alan BID TP Last administered on 07/14/18at 20:58; Start 06/23 at 21:00; Stop 07/14/18 at 21:27; Status DC Mirtazapine (Remeron) 15 mg QHS PO Last administered on 07/08/18 21:01; Start 06/23/18 at 21:00; Stop 07/09/18 at 17:52; Status DC Nystatin (Nystop) 15 alan STK-MED ONCE TP Last administered on 06/23/18 19:15; Start 06/23/18 at 19:15; Stop 06/23/18 at 19:17; Status DC Rivastigmine Tartrate (Exelon) 3 mg BID PO Last administered on 07/21/18 19:36 ; Start 06/24/18 at 21:00 Fluvoxamine Maleate (Luvox) 25 mg QHS PO Last administered on 06/25/18 19:22; Start 06/24/18 at 21:00; Stop 06/26/18 at 19:00; Status DC Fluvoxamine Maleate (Luvox) 50 mg QHS PO Last administered on 06/30/18 19:36; Start 06/26/18 at 21:00; Stop 07/01/18 at 20:00; Status DC Quetiapine Fumarate (SEROquel) 25 mg DAILY@1900 PO Last administered on 19:36; Start 06/24/18 at 19:00 Quetiapine Fumarate (SEROquel) 25 mg BID@0900,1500 PO Last administered on 16:36; Start 06/25/18 at 09:00 Bisacodyl (Dulcolax Supp) 10 mg PRN DAILY PRN [place] CONSTIPATION Last administered on 06/27/18at 11:54; Start 06/27/18 at 10:30 Fluvoxamine Maleate (Luvox) 75 mg QHS PO Last administered on 07/13/18 19:16; Start 07/01/18 at 21:00; Stop 07/13/18 at 19:43; Status DC Divalproex Sodium (Depakote Sprinkles) 125 mg BID@0900,1700 PO Last administered on 07/21/18 16:36; Start 06/30/18 at 17:00 Mirtazapine (Remeron) 7.5 mg QHS PO Last administered on 07/21/18 19:35; Start 1/24/19 at 21:00 Fluvoxamine Maleate (Luvox) 100 mg QHS PO Last administered on 07/21/18at 19:35; Start 07/13/18 at 21:00 Nystatin (Nystop) 1 alan PRN BID PRN TP skin rash; Start 07/14/18 at 21:30 Active Scripts Active Reported Tamsulosin Hcl 0.4 Mg Cap.er.24h 0.4 Mg PO DAILY Levothyroxine Sodium 88 Mcg Tablet 88 Mcg PO DAILYAC Escitalopram Oxalate 20 Mg Tablet 20 Mg PO DAILY Rivastigmine (Rivastigmine Tartrate) 1.5 Mg Capsule 1.5 Mg PO BID Namenda Xr (Memantine Hcl) 28 Mg Cap.spr.24 28 Mg PO DAILY I have reviewed the current psychotropics carefully including drug interactions. Risk benefit ratio favors no change other than as noted in my dictated progress note. Diagnosis: Problems: (1) Mental status alteration (2) Anxiety disorder (3) Dementia in Alzheimer's disease with delusions (4) Dementia in Alzheimer's disease with depression (5) Dementia, vascular, with delusions (6) Dementia, vascular, with depression (7) Impulse control disorder MILAN TAYLOR MD Jul 21, 2018 22:42
--- NOTE | 2018-07-21 23:27 | PN ---
DATE: 07/20/2018 This late entry for 07/20/2018 covers elements not covered in my initial note. SUBJECTIVE: I met with the patient in the evening. The patient slept 6 hours previous night. Previous night, he was quite anxious, restless, had to be in the [place] Hallway with low stimulation, but during the day on 07/20/2018, he has done better, compliant with medications, not combative. REVIEW OF SYSTEMS: No CV, , pulmonary, eye, ENT system symptoms on review. Reliability poor. MENTAL STATUS EXAM: Oriented to himself. Insight, judgment, recent and remote memory, attention, concentration, fund of knowledge poor, consistent with his diagnosis mentioned in my initial note. PLAN: No change from initial note. MAN Connie TAYLOR MD DR: NATAN/alfredo JOB#: [id number] / [id number]
[2018-07-22 05:48] VITALS: BP 133/68
[2018-07-22] MEDS: LEVOTHYROXINE 88 MCG TABLET PO SCH (06:00)
[2018-07-22 06:38] LABS: BASO % 1 % (0-3); EOS # 0.5 x10^3/uL (0.0-0.7); EOS % 8 % (0-3); HEMATOCRIT 36.7 % (39.0-53.0); HEMOGLOBIN 12.5 g/dL (13.0-17.5); LYMPH % 29 % (24-48); MEAN CORPUSCULAR HEMOGLOBIN 31 pg (25-35); MEAN CORPUSCULAR HGB CONC 34 g/dL (31-37); MEAN CORPUSCULAR VOLUME 92 fL (79-100); MONO % 15 % (0-9); NEUT # 3.4 x10^3uL (1.8-7.7); NEUT % 48 % (31-73); PLATELET COUNT 194 x10^3/uL (140-400); RED BLOOD COUNT 3.99 x10^6/uL (4.30-5.70); RED CELL DISTRIBUTION WIDTH 13.8 % (11.5-14.5); WHITE BLOOD COUNT 7.1 x10^3/uL (4.0-11.0)
[2018-07-22 06:50] LABS: GFR 72.3; POTASSIUM 4.1 mmol/L (3.5-5.1); TOTAL BILIRUBIN 0.2 mg/dL (0.2-1.0)
[2018-07-22 07:03] LABS: CALCIUM 8.2 mg/dL (8.5-10.1)
[2018-07-22 07:15] LABS: ALBUMIN 2.7 g/dL (3.4-5.0); ALBUMIN/GLOBULIN RATIO 0.6 (1.0-1.7); TOTAL PROTEIN 6.9 g/dL (6.4-8.2)
[2018-07-22] MEDS: DIVALPROEX 125 MG CAP.SPRINK PO SCH ×2 (08:01→16:55)
[2018-07-22] MEDS: TAMSULOSIN 0.4 MG CAP.ER.24H. PO SCH (08:01)
[2018-07-22] MEDS: QUEtiapine 25 MG TABLET. PO SCH ×3 (08:01→20:50)
[2018-07-22] MEDS: RIVASTIGMINE 3 MG CAPSULE. PO SCH ×2 (08:01→20:50)
[2018-07-22] MEDS: MEMANTINE 10 MG TABLET. PO SCH ×2 (08:01→20:50)
[2018-07-22 16:00] VITALS: BP 111/66
--- NOTE | 2018-07-22 20:07 | PN ---
DATE: 07/21/2018 This late entry for 07/21/2018 covers elements not covered in my initial note. SUBJECTIVE: I met with the patient in the evening. The patient slept 8 hours previous night. He remains confused, but not aggressive. He wanders the hallways, does redirect. REVIEW OF SYSTEMS: No CV, , pulmonary, eye, ENT system symptoms on review. Reliability poor. MENTAL STATUS EXAM: Oriented to himself. Insight, judgment, recent and remote memory, attention, concentration, fund of knowledge poor, consistent with his diagnosis mentioned in my initial note. PLAN: No change from initial note. MAN Connie TAYLOR MD DR: NATAN/alfredo JOB#: [id number] / [id number]
[2018-07-22] MEDS: MIRTAZAPINE 7.5 MG TABLET. PO SCH (20:50)
--- NOTE | 2018-07-22 22:33 | PDOC ---
Exam Note: Justin Note: Please also refer to the separate dictated note~for this date of service dictated separately.~Patient seen individually. Discussed the patient with Nursing staff reviewed the chart.~Reviewed interim history and current functioning. Reviewed vital signs,~Labs/ Radiology~and current medications noted below. Continue current treatment with the changes noted in the dictated addendum note Assessment: Vital Signs: Vital Signs Date Time Temp Pulse Resp B/P (MAP) Pulse Ox O2 Delivery O2 Flow Rate FiO2 07/22/18 16:00 97.6 73 20 111/66 (81) 96 07/19/18 16:02 Room Air I&O Intake and Output 07/22/18 07:01 Intake Total 720 ml Balance 720 ml Intake Oral 720 ml # Voids 1 # Bowel Movements 1 Labs: Laboratory Tests Test 07/22/18 06:22 White Blood Count 7.1 x10^3/uL (4.0-11.0) Red Blood Count 3.99 x10^6/uL (4.30-5.70) L Hemoglobin 12.5 g/dL (13.0-17.5) L Hematocrit 36.7 % (39.0-53.0) L Mean Corpuscular Volume 92 fL (79-100) Mean Corpuscular Hemoglobin 31 pg (25-35) Mean Corpuscular Hemoglobin Concent 34 g/dL (31-37) Red Cell Distribution Width 13.8 % (11.5-14.5) Platelet Count 194 x10^3/uL (140-400) Neutrophils (%) (Auto) 48 % (31-73) Lymphocytes (%) (Auto) 29 % (24-48) Monocytes (%) (Auto) 15 % (0-9) H Eosinophils (%) (Auto) 8 % (0-3) H Basophils (%) (Auto) 1 % (0-3) Neutrophils # (Auto) 3.4 x10^3uL (1.8-7.7) Lymphocytes # (Auto) 2.0 x10^3/uL (1.0-4.8) Monocytes # (Auto) 1.0 x10^3/uL (0.0-1.1) Eosinophils # (Auto) 0.5 x10^3/uL (0.0-0.7) Basophils # (Auto) 0.0 x10^3/uL (0.0-0.2) Sodium Level 141 mmol/L (136-145) Potassium Level 4.1 mmol/L (3.5-5.1) Chloride Level 108 mmol/L (98-107) H Carbon Dioxide Level 28 mmol/L (21-32) Anion Gap 5 (6-14) L Blood Urea Nitrogen 27 mg/dL (8-26) H Creatinine 1.0 mg/dL (0.7-1.3) Estimated GFR (Cockcroft-Gault) 72.3 BUN/Creatinine Ratio 27 (6-20) H Glucose Level 84 mg/dL (70-99) Calcium Level 8.2 mg/dL (8.5-10.1) L Total Bilirubin 0.2 mg/dL (0.2-1.0) Aspartate Amino Transferase (AST) 18 U/L (15-37) Alanine Aminotransferase (ALT) 32 U/L (16-63) Alkaline Phosphatase 99 U/L (46-116) Total Protein 6.9 g/dL (6.4-8.2) Albumin 2.7 g/dL (3.4-5.0) L Albumin/Globulin Ratio 0.6 (1.0-1.7) L Current Medications: Meds: Current Medications Lorazepam (Ativan) 2 mg 1X ONCE PO Last administered on 06/17/18 19:54; Start 06/17/18 at 20:15; Stop 06/17/18 at 20:16; Status DC Acetaminophen (Tylenol) 650 mg PRN Q6HRS PRN PO PAIN / TEMP Last administered on 07/08/18 11:59; Start 06/17/18 at 21:30 Multi-Ingredient Ointment (Analgesic [place]) 1 alan PRN QID PRN TP MUSCLE PAIN Last administered on 06/24/18 13:11; Start 06/17/18 at 21:30 Al Hydroxide/Mg Hydroxide (Mylanta Plus Xs) 15 ml PRN AFTMEALHC PRN PO DYSPEPSIA Last administered on 07/09/18 17:03; Start 06/17/18 at 21:30 Magnesium Hydroxide (Milk Of Magnesia) 2,400 mg PRN QHS PRN PO CONSTIPATION Last administered on 07/21/18at 16:36; Start 06/17/18 at 21:30 Trazodone HCl (Desyrel) 25 mg PRN QHS PRN PO INSOMNIA Last administered on 19:50; Start 06/17/18 at 21:30 Olanzapine (ZyPREXA ZYDIS) 2.5 mg PRN Q2HR PRN PO PSYCHOSIS Last administered on 07/22/18 14:29; Start 06/17/18 at 21:30 Citalopram Hydrobromide (CeleXA) 40 mg DAILY PO Last administered on 06/19/18 08:09; Start 06/18/18 at 09:00; Stop 06/19/18 at 16:58; Status DC Memantine (Namenda) 10 mg BID PO Last administered on 07/22/18 20:50; Start 06/18/18 at 09:00 Rivastigmine Tartrate (Exelon) 1.5 mg BIDWMEALS PO Last administered on 07:47; Start 06/18/18 at 08:00; Stop 06/23/18 at 16:38; Status DC Levothyroxine Sodium (Synthroid) 88 mcg DAILYAC PO Last administered on 08:11; Start 06/18/18 at 07:30; Stop 06/19/18 at 17:40; Status DC Tamsulosin HCl (Flomax) 0.4 mg DAILY PO Last administered on 07/22/18 08:01; Start 06/18/18 at 09:00 Hydroxyzine HCl (Atarax) 25 mg PRN Q2HR PRN PO ANXIETY / AGITATION Last administered on 06/21/18 18:40; Start 06/18/18 at 23:00; Stop 06/21/18 at 20:10; Status DC Carbamide Peroxide (Debrox) 5 drop BID AU Last administered on 06/24/18 11:00; Start 06/19/18 at 21:00; Stop 06/24/18 at 20:59; Status DC Mirtazapine (Remeron) 7.5 mg QHS PO Last administered on 06/22/18 19:17; Start 06/19/18 at 21:00; Stop 06/23/18 at 18:12; Status DC Sertraline HCl (Zoloft) 50 mg DAILY PO Last administered on 1/9/19at 10:56; Start 06/20/18 at 09:00; Stop 06/24/18 at 18:42; Status DC Quetiapine Fumarate (SEROquel) 12.5 mg 0900,1700 PO Last administered on at 16:23; Start 06/19/18 at 17:00; Stop 06/22/18 at 16:55; Status DC Levothyroxine Sodium (Synthroid) 88 mcg DAILY06 PO Last administered on at 06:00; Start 06/20/18 at 06:00 Quetiapine Fumarate (SEROquel) 12.5 mg BID92 PO ; Start 06/23/18 at 09:00; Stop 06/23/18 at 09:00; Status DC Quetiapine Fumarate (SEROquel) 25 mg DAILY@1900 PO ; Start 06/22/18 at 19:00; Stop 06/22/18 at 19:00; Status DC Quetiapine Fumarate (SEROquel) 12.5 mg BID@0900,1500 PO Last administered on 06/24/18at 16:33; Start 06/23/18 at 09:00; Stop 06/24/18 at 18:46; Status DC Quetiapine Fumarate (SEROquel) 25 mg STK-MED ONCE .ROUTE ; Start 06/22/18 at 17: 12; Stop 06/22/18 at 17:14; Status DC Quetiapine Fumarate (SEROquel) 12.5 mg DAILY@1900 PO Last administered on at 18:16; Start 06/22/18 at 19:00; Stop 06/24/18 at 18:46; Status DC Rivastigmine Tartrate (Exelon) 1.5 mg DAILY PO Last administered on 06/24/18at 10 :58; Start 06/24/18 at 09:00; Stop 06/24/18 at 14:14; Status DC Rivastigmine Tartrate (Exelon) 3 mg HS PO ; Start 06/23/18 at 21:00; Stop at 21:00; Status DC Rivastigmine Tartrate (Exelon) 3 mg BIDWMEALS PO Last administered on 06/24/18at 10:54; Start 06/23/18 at 17:00; Stop 06/24/18 at 14:14; Status DC Rivastigmine Tartrate (Exelon) 3 mg HS PO ; Start 06/27/18 at 09:00; Stop at 09:00; Status DC Nystatin (Nystop) 1 alan BID TP Last administered on 07/14/18at 20:58; Start 06/23 at 21:00; Stop 07/14/18 at 21:27; Status DC Mirtazapine (Remeron) 15 mg QHS PO Last administered on 07/08/18at 21:01; Start 06/23/18 at 21:00; Stop 07/09/18 at 17:52; Status DC Nystatin (Nystop) 15 alan STK-MED ONCE TP Last administered on 06/23/18at 19:15; Start 06/23/18 at 19:15; Stop 06/23/18 at 19:17; Status DC Rivastigmine Tartrate (Exelon) 3 mg BID PO Last administered on 07/22/18at 20:50 ; Start 06/24/18 at 21:00 Fluvoxamine Maleate (Luvox) 25 mg QHS PO Last administered on 06/25/18at 19:22; Start 06/24/18 at 21:00; Stop 06/26/18 at 19:00; Status DC Fluvoxamine Maleate (Luvox) 50 mg QHS PO Last administered on 06/30/18at 19:36; Start 06/26/18 at 21:00; Stop 07/01/18 at 20:00; Status DC Quetiapine Fumarate (SEROquel) 25 mg DAILY@1900 PO Last administered on at 20:50; Start 06/24/18 at 19:00 Quetiapine Fumarate (SEROquel) 25 mg BID@0900,1500 PO Last administered on 14:29; Start 06/25/18 at 09:00 Bisacodyl (Dulcolax Supp) 10 mg PRN DAILY PRN [place] CONSTIPATION Last administered on 06/27/18at 11:54; Start 06/27/18 at 10:30 Fluvoxamine Maleate (Luvox) 75 mg QHS PO Last administered on 07/13/18at 19:16; Start 07/01/18 at 21:00; Stop 07/13/18 at 19:43; Status DC Divalproex Sodium (Depakote Sprinkles) 125 mg BID@0900,1700 PO Last administered on 07/22/18at 16:55; Start 06/30/18 at 17:00 Mirtazapine (Remeron) 7.5 mg QHS PO Last administered on 07/22/18at 20:50; Start 07/09/18 at 21:00 Fluvoxamine Maleate (Luvox) 100 mg QHS PO Last administered on 07/22/18at 20:50; Start 07/13/18 at 21:00 Nystatin (Nystop) 1 alan PRN BID PRN TP skin rash; Start 07/14/18 at 21:30 Active Scripts Active Reported Tamsulosin Hcl 0.4 Mg Cap.er.24h 0.4 Mg PO DAILY Levothyroxine Sodium 88 Mcg Tablet 88 Mcg PO DAILYAC Escitalopram Oxalate 20 Mg Tablet 20 Mg PO DAILY Rivastigmine (Rivastigmine Tartrate) 1.5 Mg Capsule 1.5 Mg PO BID Namenda Xr (Memantine Hcl) 28 Mg Cap.spr.24 28 Mg PO DAILY I have reviewed the current psychotropics carefully including drug interactions. Risk benefit ratio favors no change other than as noted in my dictated progress note. Diagnosis: Problems: (1) Mental status alteration (2) Anxiety disorder (3) Dementia in Alzheimer's disease with delusions (4) Dementia in Alzheimer's disease with depression (5) Dementia, vascular, with delusions (6) Dementia, vascular, with depression (7) Impulse control disorder MILAN TAYLOR MD Jul 22, 2018 22:33
[2018-07-23] MEDS: LEVOTHYROXINE 88 MCG TABLET PO SCH (06:02)
[2018-07-23 06:36] VITALS: BP 149/84
[2018-07-23] MEDS: MEMANTINE 10 MG TABLET. PO SCH ×2 (10:01→19:36)
[2018-07-23] MEDS: TAMSULOSIN 0.4 MG CAP.ER.24H. PO SCH (10:01)
[2018-07-23] MEDS: DIVALPROEX 125 MG CAP.SPRINK PO SCH ×2 (10:01→15:47)
[2018-07-23] MEDS: QUEtiapine 25 MG TABLET. PO SCH ×3 (10:01→19:35)
[2018-07-23] MEDS: RIVASTIGMINE 3 MG CAPSULE. PO SCH ×2 (10:01→19:36)
[2018-07-23 16:46] VITALS: BP 106/56
[2018-07-23] MEDS: MIRTAZAPINE 15 MG TABLET PO SCH (19:38)
--- NOTE | 2018-07-23 21:17 | PN ---
DATE: 07/22/2018 This late entry for 07/22/2018 covers elements not covered in my initial note. SUBJECTIVE: I met with the patient in the evening. The patient was also staffed at a treatment team meeting with the entire team. The patient slept 7-1/4 hours previous night, average 5-1/4 hours. Appetite 80%. Takes meds in a chocolate pudding. REVIEW OF SYSTEMS: No CV, , pulmonary, eye, ENT system symptoms on review. Reliability poor. MENTAL STATUS EXAM: Oriented to himself. Insight, judgment, recent and remote memory, attention, concentration, fund of knowledge poor, consistent with his diagnosis mentioned in my initial note. PLAN: No change from initial note and he has been accepted at [facility]. MAN Connie TAYLOR MD DR: NATAN/alfredo JOB#: [id number] / [id number]
--- NOTE | 2018-07-23 22:24 | PDOC ---
Exam Note: Justin Note: Please also refer to the separate dictated note~for this date of service dictated separately.~Patient seen individually. Discussed the patient with Nursing staff reviewed the chart.~Reviewed interim history and current functioning. Reviewed vital signs,~Labs/ Radiology~and current medications noted below. Continue current treatment with the changes noted in the dictated addendum note Assessment: Vital Signs: Vital Signs Date Time Temp Pulse Resp B/P (MAP) Pulse Ox O2 Delivery O2 Flow Rate FiO2 07/23/18 16:46 97.8 72 19 106/56 (73) 96 07/23/18 06:36 Room Air I&O Intake and Output 07/23/18 07:01 Intake Total 1440 ml Balance 1440 ml Intake Oral 1440 ml # Voids 1 # Bowel Movements 1 Current Medications: Meds: Current Medications Lorazepam (Ativan) 2 mg 1X ONCE PO Last administered on 06/17/18 19:54; Start 06/17/18 at 20:15; Stop 06/17/18 at 20:16; Status DC Acetaminophen (Tylenol) 650 mg PRN Q6HRS PRN PO PAIN / TEMP Last administered on 07/08/18 11:59; Start 06/17/18 at 21:30 Multi-Ingredient Ointment (Analgesic [place]) 1 alan PRN QID PRN TP MUSCLE PAIN Last administered on 06/24/18 13:11; Start 06/17/18 at 21:30 Al Hydroxide/Mg Hydroxide (Mylanta Plus Xs) 15 ml PRN AFTMEALHC PRN PO DYSPEPSIA Last administered on 07/09/18 17:03; Start 06/17/18 at 21:30 Magnesium Hydroxide (Milk Of Magnesia) 2,400 mg PRN QHS PRN PO CONSTIPATION Last administered on 07/21/18 16:36; Start 06/17/18 at 21:30 Trazodone HCl (Desyrel) 25 mg PRN QHS PRN PO INSOMNIA Last administered on 19:50; Start 06/17/18 at 21:30 Olanzapine (ZyPREXA ZYDIS) 2.5 mg PRN Q2HR PRN PO PSYCHOSIS Last administered on 07/23/18 21:14; Start 06/17/18 at 21:30 Citalopram Hydrobromide (CeleXA) 40 mg DAILY PO Last administered on 06/19/18 08:09; Start 06/18/18 at 09:00; Stop 06/19/18 at 16:58; Status DC Memantine (Namenda) 10 mg BID PO Last administered on 07/23/18 19:36; Start 06/18/18 at 09:00 Rivastigmine Tartrate (Exelon) 1.5 mg BIDWMEALS PO Last administered on 07:47; Start 06/18/18 at 08:00; Stop 06/23/18 at 16:38; Status DC Levothyroxine Sodium (Synthroid) 88 mcg DAILYAC PO Last administered on 08:11; Start 06/18/18 at 07:30; Stop 06/19/18 at 17:40; Status DC Tamsulosin HCl (Flomax) 0.4 mg DAILY PO Last administered on 07/23/18 10:01; Start 06/18/18 at 09:00 Hydroxyzine HCl (Atarax) 25 mg PRN Q2HR PRN PO ANXIETY / AGITATION Last administered on 06/21/18 18:40; Start 06/18/18 at 23:00; Stop 06/21/18 at 20:10; Status DC Carbamide Peroxide (Debrox) 5 drop BID AU Last administered on 06/24/18 11:00; Start 06/19/18 at 21:00; Stop 06/24/18 at 20:59; Status DC Mirtazapine (Remeron) 7.5 mg QHS PO Last administered on 06/22/18 19:17; Start 06/19/18 at 21:00; Stop 06/23/18 at 18:12; Status DC Sertraline HCl (Zoloft) 50 mg DAILY PO Last administered on 06/24/18 10:56; Start 06/20/18 at 09:00; Stop 06/24/18 at 18:42; Status DC Quetiapine Fumarate (SEROquel) 12.5 mg 0900,1700 PO Last administered on 16:23; Start 06/19/18 at 17:00; Stop 06/22/18 at 16:55; Status DC Levothyroxine Sodium (Synthroid) 88 mcg DAILY06 PO Last administered on at 06:02; Start 06/20/18 at 06:00 Quetiapine Fumarate (SEROquel) 12.5 mg BID92 PO ; Start 06/23/18 at 09:00; Stop 06/23/18 at 09:00; Status DC Quetiapine Fumarate (SEROquel) 25 mg DAILY@1900 PO ; Start 06/22/18 at 19:00; Stop 06/22/18 at 19:00; Status DC Quetiapine Fumarate (SEROquel) 12.5 mg BID@0900,1500 PO Last administered on 06/24/18at 16:33; Start 06/23/18 at 09:00; Stop 06/24/18 at 18:46; Status DC Quetiapine Fumarate (SEROquel) 25 mg STK-MED ONCE .ROUTE ; Start 06/22/18 at 17: 12; Stop 06/22/18 at 17:14; Status DC Quetiapine Fumarate (SEROquel) 12.5 mg DAILY@1900 PO Last administered on at 18:16; Start 06/22/18 at 19:00; Stop 06/24/18 at 18:46; Status DC Rivastigmine Tartrate (Exelon) 1.5 mg DAILY PO Last administered on 06/24/18at 10 :58; Start 06/24/18 at 09:00; Stop 06/24/18 at 14:14; Status DC Rivastigmine Tartrate (Exelon) 3 mg HS PO ; Start 06/23/18 at 21:00; Stop at 21:00; Status DC Rivastigmine Tartrate (Exelon) 3 mg BIDWMEALS PO Last administered on 06/24/18at 10:54; Start 06/23/18 at 17:00; Stop 06/24/18 at 14:14; Status DC Rivastigmine Tartrate (Exelon) 3 mg HS PO ; Start 06/27/18 at 09:00; Stop at 09:00; Status DC Nystatin (Nystop) 1 alan BID TP Last administered on 07/14/18at 20:58; Start 06/23 at 21:00; Stop 07/14/18 at 21:27; Status DC Mirtazapine (Remeron) 15 mg QHS PO Last administered on 07/08/18 21:01; Start 06/23/18 at 21:00; Stop 07/09/18 at 17:52; Status DC Nystatin (Nystop) 15 alan STK-MED ONCE TP Last administered on 06/23/18 19:15; Start 06/23/18 at 19:15; Stop 06/23/18 at 19:17; Status DC Rivastigmine Tartrate (Exelon) 3 mg BID PO Last administered on 07/23/18 19:36 ; Start 06/24/18 at 21:00 Fluvoxamine Maleate (Luvox) 25 mg QHS PO Last administered on 06/25/18 19:22; Start 06/24/18 at 21:00; Stop 06/26/18 at 19:00; Status DC Fluvoxamine Maleate (Luvox) 50 mg QHS PO Last administered on 06/30/18 19:36; Start 06/26/18 at 21:00; Stop 07/01/18 at 20:00; Status DC Quetiapine Fumarate (SEROquel) 25 mg DAILY@1900 PO Last administered on 19:35; Start 06/24/18 at 19:00 Quetiapine Fumarate (SEROquel) 25 mg BID@0900,1500 PO Last administered on 15:48; Start 06/25/18 at 09:00 Bisacodyl (Dulcolax Supp) 10 mg PRN DAILY PRN [place] CONSTIPATION Last administered on 06/27/18at 11:54; Start 06/27/18 at 10:30 Fluvoxamine Maleate (Luvox) 75 mg QHS PO Last administered on 07/13/18 19:16; Start 07/01/18 at 21:00; Stop 07/13/18 at 19:43; Status DC Divalproex Sodium (Depakote Sprinkles) 125 mg BID@0900,1700 PO Last administered on 07/23/18 15:47; Start 06/30/18 at 17:00 Mirtazapine (Remeron) 7.5 mg QHS PO Last administered on 2/6/19at 20:50; Start 07/09/18 at 21:00; Stop 07/23/18 at 17:07; Status DC Fluvoxamine Maleate (Luvox) 100 mg QHS PO Last administered on 07/23/18at 19:36; Start 07/13/18 at 21:00 Nystatin (Nystop) 1 alan PRN BID PRN TP skin rash; Start 07/14/18 at 21:30 Mirtazapine (Remeron) 15 mg QHS PO Last administered on 07/23/18at 19:38; Start 07/23/18 at 21:00 Active Scripts Active Reported Tamsulosin Hcl 0.4 Mg Cap.er.24h 0.4 Mg PO DAILY Levothyroxine Sodium 88 Mcg Tablet 88 Mcg PO DAILYAC Escitalopram Oxalate 20 Mg Tablet 20 Mg PO DAILY Rivastigmine (Rivastigmine Tartrate) 1.5 Mg Capsule 1.5 Mg PO BID Namenda Xr (Memantine Hcl) 28 Mg Cap.spr.24 28 Mg PO DAILY I have reviewed the current psychotropics carefully including drug interactions. Risk benefit ratio favors no change other than as noted in my dictated progress note. Diagnosis: Problems: (1) Mental status alteration (2) Anxiety disorder (3) Dementia in Alzheimer's disease with delusions (4) Dementia in Alzheimer's disease with depression (5) Dementia, vascular, with delusions (6) Dementia, vascular, with depression (7) Impulse control disorder MILAN TAYLOR MD Jul 23, 2018 22:24
[2018-07-23] MEDS: traZODone 50 MG TABLET. PO PRN (23:21)
[2018-07-24 05:50] VITALS: BP 184/74
[2018-07-24] MEDS: LEVOTHYROXINE 88 MCG TABLET PO SCH (06:00)
[2018-07-24] MEDS: MEMANTINE 10 MG TABLET. PO SCH ×2 (09:28→19:58)
[2018-07-24] MEDS: TAMSULOSIN 0.4 MG CAP.ER.24H. PO SCH (09:30)
[2018-07-24] MEDS: RIVASTIGMINE 3 MG CAPSULE. PO SCH ×2 (09:30→19:59)
[2018-07-24] MEDS: DIVALPROEX 125 MG CAP.SPRINK PO SCH ×2 (09:30→18:02)
[2018-07-24] MEDS: QUEtiapine 25 MG TABLET. PO SCH ×3 (09:30→18:01)
[2018-07-24 16:31] VITALS: BP 100/63
[2018-07-24] MEDS: traZODone 50 MG TABLET. PO PRN (19:58)
[2018-07-24] MEDS: MIRTAZAPINE 15 MG TABLET PO SCH (19:58)
--- NOTE | 2018-07-24 22:08 | PN ---
DATE: 07/23/2018 This late entry for 07/23/2018 covers elements not covered in my initial note. SUBJECTIVE: I met with the patient in the evening. The patient slept 2-1/4 hours previous night. He slept through breakfast, takes his meds crushed, otherwise compliant with meds, extremely disorganized. REVIEW OF SYSTEMS: No CV, , pulmonary, eye, ENT system symptoms on review. Reliability poor. MENTAL STATUS EXAM: Oriented to himself. Insight, judgment, recent and remote memory, attention, concentration, fund of knowledge poor, consistent with his diagnosis mentioned in my initial note. PLAN: Increase Remeron from 7.5 mg to 15 mg at bedtime. Rest unchanged from initial note. MAN Connie TAYLOR MD DR: NATAN/alfredo JOB#: [id number] / [id number]
--- NOTE | 2018-07-24 22:31 | PDOC ---
Exam Note: Justin Note: Please also refer to the separate dictated note~for this date of service dictated separately.~Patient seen individually. Discussed the patient with Nursing staff reviewed the chart.~Reviewed interim history and current functioning. Reviewed vital signs,~Labs/ Radiology~and current medications noted below. Continue current treatment with the changes noted in the dictated addendum note Assessment: Vital Signs: Vital Signs Date Time Temp Pulse Resp B/P (MAP) Pulse Ox O2 Delivery O2 Flow Rate FiO2 07/24/18 16:31 98.1 85 19 100/63 (75) 96 Room Air I&O Intake and Output 07/24/18 07:01 Intake Total 725 ml Balance 725 ml Intake Oral 725 ml # Bowel Movements 1 Current Medications: Meds: Current Medications Lorazepam (Ativan) 2 mg 1X ONCE PO Last administered on 06/17/18 19:54; Start 06/17/18 at 20:15; Stop 06/17/18 at 20:16; Status DC Acetaminophen (Tylenol) 650 mg PRN Q6HRS PRN PO PAIN / TEMP Last administered on 07/08/18 11:59; Start 06/17/18 at 21:30 Multi-Ingredient Ointment (Analgesic [place]) 1 alan PRN QID PRN TP MUSCLE PAIN Last administered on 06/24/18 13:11; Start 06/17/18 at 21:30 Al Hydroxide/Mg Hydroxide (Mylanta Plus Xs) 15 ml PRN AFTMEALHC PRN PO DYSPEPSIA Last administered on 07/09/18 17:03; Start 06/17/18 at 21:30 Magnesium Hydroxide (Milk Of Magnesia) 2,400 mg PRN QHS PRN PO CONSTIPATION Last administered on 07/21/18 16:36; Start 06/17/18 at 21:30 Trazodone HCl (Desyrel) 25 mg PRN QHS PRN PO INSOMNIA Last administered on 23:21; Start 06/17/18 at 21:30; Stop 07/24/18 at 19:00; Status DC Olanzapine (ZyPREXA ZYDIS) 2.5 mg PRN Q2HR PRN PO PSYCHOSIS Last administered on 07/24/18 15:21; Start 06/17/18 at 21:30 Citalopram Hydrobromide (CeleXA) 40 mg DAILY PO Last administered on 06/19/18 08:09; Start 06/18/18 at 09:00; Stop 06/19/18 at 16:58; Status DC Memantine (Namenda) 10 mg BID PO Last administered on 07/24/18 19:58; Start 06/18/18 at 09:00 Rivastigmine Tartrate (Exelon) 1.5 mg BIDWMEALS PO Last administered on 07:47; Start 06/18/18 at 08:00; Stop 06/23/18 at 16:38; Status DC Levothyroxine Sodium (Synthroid) 88 mcg DAILYAC PO Last administered on 08:11; Start 06/18/18 at 07:30; Stop 06/19/18 at 17:40; Status DC Tamsulosin HCl (Flomax) 0.4 mg DAILY PO Last administered on 07/24/18 09:30; Start 06/18/18 at 09:00 Hydroxyzine HCl (Atarax) 25 mg PRN Q2HR PRN PO ANXIETY / AGITATION Last administered on 06/21/18 18:40; Start 06/18/18 at 23:00; Stop 06/21/18 at 20:10; Status DC Carbamide Peroxide (Debrox) 5 drop BID AU Last administered on 06/24/18 11:00; Start 06/19/18 at 21:00; Stop 06/24/18 at 20:59; Status DC Mirtazapine (Remeron) 7.5 mg QHS PO Last administered on 06/22/18 19:17; Start 06/19/18 at 21:00; Stop 06/23/18 at 18:12; Status DC Sertraline HCl (Zoloft) 50 mg DAILY PO Last administered on 06/24/18at 10:56; Start 06/20/18 at 09:00; Stop 06/24/18 at 18:42; Status DC Quetiapine Fumarate (SEROquel) 12.5 mg 0900,1700 PO Last administered on 16:23; Start 06/19/18 at 17:00; Stop 06/22/18 at 16:55; Status DC Levothyroxine Sodium (Synthroid) 88 mcg DAILY06 PO Last administered on at 06:02; Start 06/20/18 at 06:00 Quetiapine Fumarate (SEROquel) 12.5 mg BID92 PO ; Start 06/23/18 at 09:00; Stop 06/23/18 at 09:00; Status DC Quetiapine Fumarate (SEROquel) 25 mg DAILY@1900 PO ; Start 06/22/18 at 19:00; Stop 06/22/18 at 19:00; Status DC Quetiapine Fumarate (SEROquel) 12.5 mg BID@0900,1500 PO Last administered on 06/24/18at 16:33; Start 06/23/18 at 09:00; Stop 06/24/18 at 18:46; Status DC Quetiapine Fumarate (SEROquel) 25 mg STK-MED ONCE .ROUTE ; Start 06/22/18 at 17: 12; Stop 06/22/18 at 17:14; Status DC Quetiapine Fumarate (SEROquel) 12.5 mg DAILY@1900 PO Last administered on at 18:16; Start 06/22/18 at 19:00; Stop 06/24/18 at 18:46; Status DC Rivastigmine Tartrate (Exelon) 1.5 mg DAILY PO Last administered on 06/24/18at 10 :58; Start 06/24/18 at 09:00; Stop 06/24/18 at 14:14; Status DC Rivastigmine Tartrate (Exelon) 3 mg HS PO ; Start 06/23/18 at 21:00; Stop at 21:00; Status DC Rivastigmine Tartrate (Exelon) 3 mg BIDWMEALS PO Last administered on 06/24/18at 10:54; Start 06/23/18 at 17:00; Stop 06/24/18 at 14:14; Status DC Rivastigmine Tartrate (Exelon) 3 mg HS PO ; Start 06/27/18 at 09:00; Stop at 09:00; Status DC Nystatin (Nystop) 1 alan BID TP Last administered on 07/14/18at 20:58; Start 06/23 at 21:00; Stop 07/14/18 at 21:27; Status DC Mirtazapine (Remeron) 15 mg QHS PO Last administered on 07/08/18 21:01; Start 06/23/18 at 21:00; Stop 07/09/18 at 17:52; Status DC Nystatin (Nystop) 15 alan STK-MED ONCE TP Last administered on 06/23/18 19:15; Start 06/23/18 at 19:15; Stop 06/23/18 at 19:17; Status DC Rivastigmine Tartrate (Exelon) 3 mg BID PO Last administered on 07/24/18 19:59 ; Start 06/24/18 at 21:00 Fluvoxamine Maleate (Luvox) 25 mg QHS PO Last administered on 06/25/18 19:22; Start 06/24/18 at 21:00; Stop 06/26/18 at 19:00; Status DC Fluvoxamine Maleate (Luvox) 50 mg QHS PO Last administered on 06/30/18 19:36; Start 06/26/18 at 21:00; Stop 07/01/18 at 20:00; Status DC Quetiapine Fumarate (SEROquel) 25 mg DAILY@1900 PO Last administered on 18:01; Start 06/24/18 at 19:00 Quetiapine Fumarate (SEROquel) 25 mg BID@0900,1500 PO Last administered on 15:21; Start 06/25/18 at 09:00 Bisacodyl (Dulcolax Supp) 10 mg PRN DAILY PRN [place] CONSTIPATION Last administered on 06/27/18at 11:54; Start 06/27/18 at 10:30 Fluvoxamine Maleate (Luvox) 75 mg QHS PO Last administered on 07/13/18 19:16; Start 07/01/18 at 21:00; Stop 07/13/18 at 19:43; Status DC Divalproex Sodium (Depakote Sprinkles) 125 mg BID@0900,1700 PO Last administered on 07/24/18 18:02; Start 06/30/18 at 17:00 Mirtazapine (Remeron) 7.5 mg QHS PO Last administered on 07/22/18 20:50; Start 07/09/18 at 21:00; Stop 07/23/18 at 17:07; Status DC Fluvoxamine Maleate (Luvox) 100 mg QHS PO Last administered on 07/24/18 19:58; Start 07/13/18 at 21:00 Nystatin (Nystop) 1 alan PRN BID PRN TP skin rash; Start 07/14/18 at 21:30 Mirtazapine (Remeron) 15 mg QHS PO Last administered on 07/24/18 19:58; Start 07/23/18 at 21:00 Trazodone HCl (Desyrel) 50 mg PRN QHS PRN PO INSOMNIA, MAY REPEAT X1 Last administered on 07/24/18 19:58; Start 07/24/18 at 19:00 Active Scripts Active Reported Tamsulosin Hcl 0.4 Mg Cap.er.24h 0.4 Mg PO DAILY Levothyroxine Sodium 88 Mcg Tablet 88 Mcg PO DAILYAC Escitalopram Oxalate 20 Mg Tablet 20 Mg PO DAILY Rivastigmine (Rivastigmine Tartrate) 1.5 Mg Capsule 1.5 Mg PO BID Namenda Xr (Memantine Hcl) 28 Mg Cap.spr.24 28 Mg PO DAILY I have reviewed the current psychotropics carefully including drug interactions. Risk benefit ratio favors no change other than as noted in my dictated progress note. Diagnosis: Problems: (1) Mental status alteration (2) Anxiety disorder (3) Dementia in Alzheimer's disease with delusions (4) Dementia in Alzheimer's disease with depression (5) Dementia, vascular, with delusions (6) Dementia, vascular, with depression (7) Impulse control disorder MILAN TAYLOR MD Jul 24, 2018 22:31
[2018-07-25] MEDS: LEVOTHYROXINE 88 MCG TABLET PO SCH (04:55)
[2018-07-25 06:46] VITALS: BP 130/67
[2018-07-25] MEDS: TAMSULOSIN 0.4 MG CAP.ER.24H. PO SCH (07:44)
[2018-07-25] MEDS: RIVASTIGMINE 3 MG CAPSULE. PO SCH ×2 (07:44→20:03)
[2018-07-25] MEDS: MEMANTINE 10 MG TABLET. PO SCH ×2 (07:44→20:03)
[2018-07-25] MEDS: QUEtiapine 25 MG TABLET. PO SCH ×3 (07:44→18:02)
[2018-07-25] MEDS: DIVALPROEX 125 MG CAP.SPRINK PO SCH ×2 (07:45→18:01)
[2018-07-25 08:04] LABS: VAL ACID 13 mcg/mL (50-100)
[2018-07-25 16:41] VITALS: BP 101/60
[2018-07-25] MEDS: MIRTAZAPINE 15 MG TABLET PO SCH (20:03)
[2018-07-25] MEDS: traZODone 50 MG TABLET. PO PRN ×2 (20:04→21:58)
--- NOTE | 2018-07-25 21:53 | PDOC ---
Exam Note: Justin Note: Please also refer to the separate dictated note~for this date of service dictated separately.~Patient seen individually. Discussed the patient with Nursing staff reviewed the chart.~Reviewed interim history and current functioning. Reviewed vital signs,~Labs/ Radiology~and current medications noted below. Continue current treatment with the changes noted in the dictated addendum note Assessment: Vital Signs: Vital Signs Date Time Temp Pulse Resp B/P (MAP) Pulse Ox O2 Delivery O2 Flow Rate FiO2 07/25/18 16:41 97.2 62 18 101/60 (74) 98 07/24/18 16:31 Room Air I&O Intake and Output 07/25/18 07:01 Intake Total 840 ml Balance 840 ml Intake Oral 840 ml # Bowel Movements 1 Labs: Laboratory Tests Test 07/25/18 07:26 Valproic Acid Level 13 mcg/mL (50-100) L Valproic Acid Last Dose Date 07/24/18 Valproic Acid Last Dose Time 1700 Current Medications: Meds: Current Medications Lorazepam (Ativan) 2 mg 1X ONCE PO Last administered on 06/17/18 19:54; Start 06/17/18 at 20:15; Stop 06/17/18 at 20:16; Status DC Acetaminophen (Tylenol) 650 mg PRN Q6HRS PRN PO PAIN / TEMP Last administered on 07/08/18 11:59; Start 06/17/18 at 21:30 Multi-Ingredient Ointment (Analgesic [place]) 1 alan PRN QID PRN TP MUSCLE PAIN Last administered on 06/24/18 13:11; Start 06/17/18 at 21:30 Al Hydroxide/Mg Hydroxide (Mylanta Plus Xs) 15 ml PRN AFTMEALHC PRN PO DYSPEPSIA Last administered on 07/09/18 17:03; Start 06/17/18 at 21:30 Magnesium Hydroxide (Milk Of Magnesia) 2,400 mg PRN QHS PRN PO CONSTIPATION Last administered on 07/21/18 16:36; Start 06/17/18 at 21:30 Trazodone HCl (Desyrel) 25 mg PRN QHS PRN PO INSOMNIA Last administered on 23:21; Start 06/17/18 at 21:30; Stop 07/24/18 at 19:00; Status DC Olanzapine (ZyPREXA ZYDIS) 2.5 mg PRN Q2HR PRN PO PSYCHOSIS Last administered on 07/25/18 15:05; Start 06/17/18 at 21:30 Citalopram Hydrobromide (CeleXA) 40 mg DAILY PO Last administered on 06/19/18 08:09; Start 06/18/18 at 09:00; Stop 06/19/18 at 16:58; Status DC Memantine (Namenda) 10 mg BID PO Last administered on 07/25/18 20:03; Start 06/18/18 at 09:00 Rivastigmine Tartrate (Exelon) 1.5 mg BIDWMEALS PO Last administered on 07:47; Start 06/18/18 at 08:00; Stop 06/23/18 at 16:38; Status DC Levothyroxine Sodium (Synthroid) 88 mcg DAILYAC PO Last administered on 08:11; Start 06/18/18 at 07:30; Stop 06/19/18 at 17:40; Status DC Tamsulosin HCl (Flomax) 0.4 mg DAILY PO Last administered on 07/25/18 07:44; Start 06/18/18 at 09:00 Hydroxyzine HCl (Atarax) 25 mg PRN Q2HR PRN PO ANXIETY / AGITATION Last administered on 06/21/18 18:40; Start 06/18/18 at 23:00; Stop 06/21/18 at 20:10; Status DC Carbamide Peroxide (Debrox) 5 drop BID AU Last administered on 06/24/18 11:00; Start 06/19/18 at 21:00; Stop 06/24/18 at 20:59; Status DC Mirtazapine (Remeron) 7.5 mg QHS PO Last administered on 06/22/18 19:17; Start 06/19/18 at 21:00; Stop 06/23/18 at 18:12; Status DC Sertraline HCl (Zoloft) 50 mg DAILY PO Last administered on 06/24/18 10:56; Start 06/20/18 at 09:00; Stop 06/24/18 at 18:42; Status DC Quetiapine Fumarate (SEROquel) 12.5 mg 0900,1700 PO Last administered on at 16:23; Start 06/19/18 at 17:00; Stop 06/22/18 at 16:55; Status DC Levothyroxine Sodium (Synthroid) 88 mcg DAILY06 PO Last administered on at 04:55; Start 06/20/18 at 06:00 Quetiapine Fumarate (SEROquel) 12.5 mg BID92 PO ; Start 06/23/18 at 09:00; Stop 06/23/18 at 09:00; Status DC Quetiapine Fumarate (SEROquel) 25 mg DAILY@1900 PO ; Start 06/22/18 at 19:00; Stop 06/22/18 at 19:00; Status DC Quetiapine Fumarate (SEROquel) 12.5 mg BID@0900,1500 PO Last administered on 06/24/18at 16:33; Start 06/23/18 at 09:00; Stop 06/24/18 at 18:46; Status DC Quetiapine Fumarate (SEROquel) 25 mg STK-MED ONCE .ROUTE ; Start 06/22/18 at 17: 12; Stop 06/22/18 at 17:14; Status DC Quetiapine Fumarate (SEROquel) 12.5 mg DAILY@1900 PO Last administered on at 18:16; Start 06/22/18 at 19:00; Stop 06/24/18 at 18:46; Status DC Rivastigmine Tartrate (Exelon) 1.5 mg DAILY PO Last administered on 06/24/18at 10 :58; Start 06/24/18 at 09:00; Stop 06/24/18 at 14:14; Status DC Rivastigmine Tartrate (Exelon) 3 mg HS PO ; Start 06/23/18 at 21:00; Stop at 21:00; Status DC Rivastigmine Tartrate (Exelon) 3 mg BIDWMEALS PO Last administered on 06/24/18at 10:54; Start 06/23/18 at 17:00; Stop 06/24/18 at 14:14; Status DC Rivastigmine Tartrate (Exelon) 3 mg HS PO ; Start 06/27/18 at 09:00; Stop at 09:00; Status DC Nystatin (Nystop) 1 alan BID TP Last administered on 07/14/18at 20:58; Start 06/23 at 21:00; Stop 07/14/18 at 21:27; Status DC Mirtazapine (Remeron) 15 mg QHS PO Last administered on 07/08/18at 21:01; Start 06/23/18 at 21:00; Stop 07/09/18 at 17:52; Status DC Nystatin (Nystop) 15 alan STK-MED ONCE TP Last administered on 06/23/18at 19:15; Start 06/23/18 at 19:15; Stop 06/23/18 at 19:17; Status DC Rivastigmine Tartrate (Exelon) 3 mg BID PO Last administered on 07/25/18at 20:03 ; Start 06/24/18 at 21:00 Fluvoxamine Maleate (Luvox) 25 mg QHS PO Last administered on 06/25/18at 19:22; Start 06/24/18 at 21:00; Stop 06/26/18 at 19:00; Status DC Fluvoxamine Maleate (Luvox) 50 mg QHS PO Last administered on 06/30/18at 19:36; Start 06/26/18 at 21:00; Stop 07/01/18 at 20:00; Status DC Quetiapine Fumarate (SEROquel) 25 mg DAILY@1900 PO Last administered on at 18:02; Start 06/24/18 at 19:00 Quetiapine Fumarate (SEROquel) 25 mg BID@0900,1500 PO Last administered on at 15:05; Start 06/25/18 at 09:00 Bisacodyl (Dulcolax Supp) 10 mg PRN DAILY PRN [place] CONSTIPATION Last administered on 06/27/18at 11:54; Start 06/27/18 at 10:30 Fluvoxamine Maleate (Luvox) 75 mg QHS PO Last administered on 07/13/18at 19:16; Start 07/01/18 at 21:00; Stop 07/13/18 at 19:43; Status DC Divalproex Sodium (Depakote Sprinkles) 125 mg BID@0900,1700 PO Last administered on 07/25/18 18:01; Start 06/30/18 at 17:00; Stop 07/25/18 at 19:50; Status DC Mirtazapine (Remeron) 7.5 mg QHS PO Last administered on 07/22/18at 20:50; Start 07/09/18 at 21:00; Stop 07/23/18 at 17:07; Status DC Fluvoxamine Maleate (Luvox) 100 mg QHS PO Last administered on 07/25/18at 20:03; Start 07/13/18 at 21:00 Nystatin (Nystop) 1 alan PRN BID PRN TP skin rash; Start 07/14/18 at 21:30 Mirtazapine (Remeron) 15 mg QHS PO Last administered on 07/25/18 20:03; Start 07/23/18 at 21:00 Trazodone HCl (Desyrel) 50 mg PRN QHS PRN PO INSOMNIA, MAY REPEAT X1 Last administered on 07/25/18at 20:04; Start 07/24/18 at 19:00 Divalproex Sodium (Depakote Sprinkles) 125 mg DAILY PO ; Start 07/26/18 at 09:00 Divalproex Sodium (Depakote Sprinkles) 250 mg AFTRNOON PO ; Start 07/26/18 at 15 :00 Active Scripts Active Reported Tamsulosin Hcl 0.4 Mg Cap.er.24h 0.4 Mg PO DAILY Levothyroxine Sodium 88 Mcg Tablet 88 Mcg PO DAILYAC Escitalopram Oxalate 20 Mg Tablet 20 Mg PO DAILY Rivastigmine (Rivastigmine Tartrate) 1.5 Mg Capsule 1.5 Mg PO BID Namenda Xr (Memantine Hcl) 28 Mg Cap.spr.24 28 Mg PO DAILY I have reviewed the current psychotropics carefully including drug interactions. Risk benefit ratio favors no change other than as noted in my dictated progress note. Diagnosis: Problems: (1) Mental status alteration (2) Anxiety disorder (3) Dementia in Alzheimer's disease with delusions (4) Dementia in Alzheimer's disease with depression (5) Dementia, vascular, with delusions (6) Dementia, vascular, with depression (7) Impulse control disorder MILAN TAYLOR MD Jul 25, 2018 21:53
--- NOTE | 2018-07-25 23:28 | PN ---
DATE: 07/24/2018 PSYCHIATRIC PROGRESS NOTE This late entry, 07/24/2018, covers elements not covered in my initial note. SUBJECTIVE: I met with the patient in the evening. The patient slept 4-1/4 hours previous night. I have received a note from Zara, social service staff that [facility] accepted the patient, but are concerned about his intermittent agitation and would like to see him somewhat more in control of his episodic impulsivity before they will accept him. His continues to look at other placement as well per social service staff. The patient was intermittently agitated and aggressive. Previous night, he slept 4-1/4 hours, received Zyprexa x 2. Slept until noon on 07/24/2018, exit seeking in the afternoon, received Zydis at 2:45 p.m. REVIEW OF SYSTEMS: No CV, , pulmonary, eye, ENT system symptoms on review. Reliability poor. MENTAL STATUS EXAM: Oriented to himself. Insight, judgment, recent and remote memory, attention, concentration, and fund of knowledge poor, consistent with his diagnosis mentioned in my initial note. PLAN: Increase trazodone to 50 mg at bedtime p.r.n., october repeat x 1 for insomnia. Rest unchanged from initial note. MILAN TAYLOR MD DR: NATAN/alfredo JOB#: [id number] / [id number]
[2018-07-26] MEDS: LEVOTHYROXINE 88 MCG TABLET PO SCH (05:11)
[2018-07-26 06:39] VITALS: BP 149/83
[2018-07-26] MEDS: QUEtiapine 25 MG TABLET. PO SCH ×3 (07:33→18:48)
[2018-07-26] MEDS: TAMSULOSIN 0.4 MG CAP.ER.24H. PO SCH (07:33)
[2018-07-26] MEDS: MEMANTINE 10 MG TABLET. PO SCH ×2 (07:33→19:26)
[2018-07-26] MEDS: RIVASTIGMINE 3 MG CAPSULE. PO SCH ×2 (07:33→19:26)
[2018-07-26] MEDS: DIVALPROEX 125 MG CAP.SPRINK PO SCH ×2 (07:34→14:47)
[2018-07-26 16:56] VITALS: BP 127/72
[2018-07-26] MEDS: MIRTAZAPINE 15 MG TABLET PO SCH (19:26)
[2018-07-26] MEDS: traZODone 50 MG TABLET. PO PRN (19:26)
--- NOTE | 2018-07-26 22:43 | PDOC ---
Exam Note: Justin Note: Please also refer to the separate dictated note~for this date of service dictated separately.~Patient seen individually. Discussed the patient with Nursing staff reviewed the chart.~Reviewed interim history and current functioning. Reviewed vital signs,~Labs/ Radiology~and current medications noted below. Continue current treatment with the changes noted in the dictated addendum note Assessment: Vital Signs: Vital Signs Date Time Temp Pulse Resp B/P (MAP) Pulse Ox O2 Delivery O2 Flow Rate FiO2 07/26/18 16:56 98.0 70 18 127/72 (90) 98 07/26/18 06:39 Room Air I&O Intake and Output 07/26/18 07:01 Intake Total 1440 ml Balance 1440 ml Intake Oral 1440 ml Current Medications: Meds: Current Medications Lorazepam (Ativan) 2 mg 1X ONCE PO Last administered on 06/17/18 19:54; Start 06/17/18 at 20:15; Stop 06/17/18 at 20:16; Status DC Acetaminophen (Tylenol) 650 mg PRN Q6HRS PRN PO PAIN / TEMP Last administered on 07/08/18 11:59; Start 06/17/18 at 21:30 Multi-Ingredient Ointment (Analgesic [place]) 1 alan PRN QID PRN TP MUSCLE PAIN Last administered on 06/24/18 13:11; Start 06/17/18 at 21:30 Al Hydroxide/Mg Hydroxide (Mylanta Plus Xs) 15 ml PRN AFTMEALHC PRN PO DYSPEPSIA Last administered on 07/09/18 17:03; Start 06/17/18 at 21:30 Magnesium Hydroxide (Milk Of Magnesia) 2,400 mg PRN QHS PRN PO CONSTIPATION Last administered on 07/21/18 16:36; Start 06/17/18 at 21:30 Trazodone HCl (Desyrel) 25 mg PRN QHS PRN PO INSOMNIA Last administered on 23:21; Start 06/17/18 at 21:30; Stop 07/24/18 at 19:00; Status DC Olanzapine (ZyPREXA ZYDIS) 2.5 mg PRN Q2HR PRN PO PSYCHOSIS Last administered on 07/26/18 19:29; Start 06/17/18 at 21:30 Citalopram Hydrobromide (CeleXA) 40 mg DAILY PO Last administered on 06/19/18 08:09; Start 06/18/18 at 09:00; Stop 06/19/18 at 16:58; Status DC Memantine (Namenda) 10 mg BID PO Last administered on 07/26/18 19:26; Start at 09:00 Rivastigmine Tartrate (Exelon) 1.5 mg BIDWMEALS PO Last administered on 07:47; Start 06/18/18 at 08:00; Stop 06/23/18 at 16:38; Status DC Levothyroxine Sodium (Synthroid) 88 mcg DAILYAC PO Last administered on 08:11; Start 06/18/18 at 07:30; Stop 06/19/18 at 17:40; Status DC Tamsulosin HCl (Flomax) 0.4 mg DAILY PO Last administered on 07/26/18 07:33; Start 06/18/18 at 09:00 Hydroxyzine HCl (Atarax) 25 mg PRN Q2HR PRN PO ANXIETY / AGITATION Last administered on 06/21/18 18:40; Start 06/18/18 at 23:00; Stop 06/21/18 at 20:10; Status DC Carbamide Peroxide (Debrox) 5 drop BID AU Last administered on 06/24/18 11:00; Start 06/19/18 at 21:00; Stop 06/24/18 at 20:59; Status DC Mirtazapine (Remeron) 7.5 mg QHS PO Last administered on 06/22/18 19:17; Start 06/19/18 at 21:00; Stop 06/23/18 at 18:12; Status DC Sertraline HCl (Zoloft) 50 mg DAILY PO Last administered on 06/24/18 10:56; Start 06/20/18 at 09:00; Stop 06/24/18 at 18:42; Status DC Quetiapine Fumarate (SEROquel) 12.5 mg 0900,1700 PO Last administered on 16:23; Start 06/19/18 at 17:00; Stop 06/22/18 at 16:55; Status DC Levothyroxine Sodium (Synthroid) 88 mcg DAILY06 PO Last administered on at 05:11; Start 06/20/18 at 06:00 Quetiapine Fumarate (SEROquel) 12.5 mg BID92 PO ; Start 06/23/18 at 09:00; Stop 06/23/18 at 09:00; Status DC Quetiapine Fumarate (SEROquel) 25 mg DAILY@1900 PO ; Start 06/22/18 at 19:00; Stop 06/22/18 at 19:00; Status DC Quetiapine Fumarate (SEROquel) 12.5 mg BID@0900,1500 PO Last administered on 06/24/18at 16:33; Start 06/23/18 at 09:00; Stop 06/24/18 at 18:46; Status DC Quetiapine Fumarate (SEROquel) 25 mg STK-MED ONCE .ROUTE ; Start 06/22/18 at 17: 12; Stop 06/22/18 at 17:14; Status DC Quetiapine Fumarate (SEROquel) 12.5 mg DAILY@1900 PO Last administered on at 18:16; Start 06/22/18 at 19:00; Stop 06/24/18 at 18:46; Status DC Rivastigmine Tartrate (Exelon) 1.5 mg DAILY PO Last administered on 06/24/18at 10 :58; Start 06/24/18 at 09:00; Stop 06/24/18 at 14:14; Status DC Rivastigmine Tartrate (Exelon) 3 mg HS PO ; Start 06/23/18 at 21:00; Stop at 21:00; Status DC Rivastigmine Tartrate (Exelon) 3 mg BIDWMEALS PO Last administered on 06/24/18at 10:54; Start 06/23/18 at 17:00; Stop 06/24/18 at 14:14; Status DC Rivastigmine Tartrate (Exelon) 3 mg HS PO ; Start 06/27/18 at 09:00; Stop at 09:00; Status DC Nystatin (Nystop) 1 alan BID TP Last administered on 07/14/18at 20:58; Start 06/23 at 21:00; Stop 07/14/18 at 21:27; Status DC Mirtazapine (Remeron) 15 mg QHS PO Last administered on 07/08/18at 21:01; Start 06/23/18 at 21:00; Stop 07/09/18 at 17:52; Status DC Nystatin (Nystop) 15 alan STK-MED ONCE TP Last administered on 06/23/18at 19:15; Start 06/23/18 at 19:15; Stop 06/23/18 at 19:17; Status DC Rivastigmine Tartrate (Exelon) 3 mg BID PO Last administered on 07/26/18 19:26 ; Start 06/24/18 at 21:00 Fluvoxamine Maleate (Luvox) 25 mg QHS PO Last administered on 06/25/18at 19:22; Start 06/24/18 at 21:00; Stop 06/26/18 at 19:00; Status DC Fluvoxamine Maleate (Luvox) 50 mg QHS PO Last administered on 06/30/18at 19:36; Start 06/26/18 at 21:00; Stop 07/01/18 at 20:00; Status DC Quetiapine Fumarate (SEROquel) 25 mg DAILY@1900 PO Last administered on 18:48; Start 06/24/18 at 19:00 Quetiapine Fumarate (SEROquel) 25 mg BID@0900,1500 PO Last administered on 07/26at 14:46; Start 06/25/18 at 09:00 Bisacodyl (Dulcolax Supp) 10 mg PRN DAILY PRN [place] CONSTIPATION Last administered on 06/27/18at 11:54; Start 06/27/18 at 10:30 Fluvoxamine Maleate (Luvox) 75 mg QHS PO Last administered on 07/13/18 19:16; Start 07/01/18 at 21:00; Stop 07/13/18 at 19:43; Status DC Divalproex Sodium (Depakote Sprinkles) 125 mg BID@0900,1700 PO Last administered on 07/25/18 18:01; Start 06/30/18 at 17:00; Stop 07/25/18 at 19:50; Status DC Mirtazapine (Remeron) 7.5 mg QHS PO Last administered on 07/22/18 20:50; Start 07/09/18 at 21:00; Stop 07/23/18 at 17:07; Status DC Fluvoxamine Maleate (Luvox) 100 mg QHS PO Last administered on 07/26/18 19:26 ; Start 07/13/18 at 21:00 Nystatin (Nystop) 1 alan PRN BID PRN TP skin rash; Start 07/14/18 at 21:30 Mirtazapine (Remeron) 15 mg QHS PO Last administered on 07/26/18 19:26; Start 07/23/18 at 21:00 Trazodone HCl (Desyrel) 50 mg PRN QHS PRN PO INSOMNIA, MAY REPEAT X1 Last administered on 07/26/18 19:26; Start 07/24/18 at 19:00 Divalproex Sodium (Depakote Sprinkles) 125 mg DAILY PO Last administered on 07:34; Start 07/26/18 at 09:00 Divalproex Sodium (Depakote Sprinkles) 250 mg AFTRNOON PO Last administered on 07/26/18 14:47; Start 07/26/18 at 15:00 Active Scripts Active Reported Tamsulosin Hcl 0.4 Mg Cap.er.24h 0.4 Mg PO DAILY Levothyroxine Sodium 88 Mcg Tablet 88 Mcg PO DAILYAC Escitalopram Oxalate 20 Mg Tablet 20 Mg PO DAILY Rivastigmine (Rivastigmine Tartrate) 1.5 Mg Capsule 1.5 Mg PO BID Namenda Xr (Memantine Hcl) 28 Mg Cap.spr.24 28 Mg PO DAILY I have reviewed the current psychotropics carefully including drug interactions. Risk benefit ratio favors no change other than as noted in my dictated progress note. Diagnosis: Problems: (1) Mental status alteration (2) Anxiety disorder (3) Dementia in Alzheimer's disease with delusions (4) Dementia in Alzheimer's disease with depression (5) Dementia, vascular, with delusions (6) Dementia, vascular, with depression (7) Impulse control disorder MILAN TAYLOR MD Jul 26, 2018 22:42
--- NOTE | 2018-07-26 23:50 | PN ---
DATE: 07/25/2018 PSYCHIATRIC PROGRESS NOTE This late entry 07/25/2018 covers elements not covered in my initial note. SUBJECTIVE: I met with the patient in the evening. The patient slept 6-1/2 hours previous night. He gets agitated around 3:00 p.m., received Zyprexa; was disorganized, restless at previous night, using a shoe as a telephone to make a telephone call. REVIEW OF SYSTEMS: No CV, , pulmonary, eye, ENT system symptoms on review. MENTAL STATUS EXAM: Oriented to himself. Insight, judgment, recent and remote memory, attention, concentration, fund of knowledge poor consistent with his diagnosis mentioned in my initial note. PLAN: The patient's valproic acid level is subtherapeutic. We will increase the Depakote from 125 b.i.d. to 125 a.m., 250 mg at 3 p.m. Check CBC, CMP, valproic acid level in 3 days and may need to increase Seroquel as well if behaviors persist. MAN Connie TAYLOR MD DR: NATAN/alfredo JOB#: [id number] / [id number]
[2018-07-27 06:01] VITALS: BP 109/63
[2018-07-27] MEDS: LEVOTHYROXINE 88 MCG TABLET PO SCH (07:15)
[2018-07-27] MEDS: RIVASTIGMINE 3 MG CAPSULE. PO SCH ×2 (10:54→19:32)
[2018-07-27] MEDS: MEMANTINE 10 MG TABLET. PO SCH ×2 (10:54→19:32)
[2018-07-27] MEDS: DIVALPROEX 125 MG CAP.SPRINK PO SCH ×2 (10:54→15:01)
[2018-07-27] MEDS: TAMSULOSIN 0.4 MG CAP.ER.24H. PO SCH (10:54)
[2018-07-27] MEDS: QUEtiapine 25 MG TABLET. PO SCH ×3 (10:55→17:10)
[2018-07-27 16:20] VITALS: BP 113/62
[2018-07-27] MEDS: MIRTAZAPINE 15 MG TABLET PO SCH (19:32)
[2018-07-27] MEDS: traZODone 50 MG TABLET. PO PRN (19:32)
--- NOTE | 2018-07-27 21:01 | PN ---
DATE: 07/26/2018 PSYCHIATRIC PROGRESS NOTE This late entry 07/26/2018 covers elements not covered in my initial note. SUBJECTIVE: I met with the patient in the evening. The patient slept 6-1/2 hours previous night. [facility] exit seeking around 4:00 p.m. Received Zyprexa Zydis at 7:30 p.m.; at times refusing his medications; irritable, labile, yelling at times in the evening around the time I met with him. Quite anxious, restless, constantly moving. REVIEW OF SYSTEMS: No CV, , pulmonary, eye, ENT system symptoms on review. Reliability poor. MENTAL STATUS EXAM: Oriented to himself. Insight, judgment, recent and remote memory, attention, concentration, fund of knowledge poor, consistent with his diagnosis. IMPRESSION: Major neurocognitive disorder, Alzheimer, vascular with delusion, depression, behavioral disturbance. Rest unchanged. PLAN: Increase Seroquel at 1500 from 25 mg to 37.5 mg and change the 1900 to 1800 dosage for another 37.5 mg., maintain 25 mg in the morning. Rest of the psychotropics unchanged for now including Depakote, Exelon, Namenda, Luvox, trazodone, and Remeron. MAN Connie TAYLOR MD DR: NATAN/alfredo JOB#: [id number] / [id number]
[2018-07-27] MEDS: MAGNESIUM HYDROXIDE 2,400 MG/30 ML ORAL.SUSP. PO PRN (21:20)
[2018-07-28] MEDS: LEVOTHYROXINE 88 MCG TABLET PO SCH (04:54)
[2018-07-28 05:41] VITALS: BP 144/70
[2018-07-28] MEDS: RIVASTIGMINE 3 MG CAPSULE. PO SCH ×2 (08:24→19:58)
[2018-07-28] MEDS: QUEtiapine 25 MG TABLET. PO SCH ×3 (08:25→17:59)
[2018-07-28] MEDS: DIVALPROEX 125 MG CAP.SPRINK PO SCH ×3 (08:25→20:00)
[2018-07-28] MEDS: MEMANTINE 10 MG TABLET. PO SCH ×2 (08:25→19:58)
[2018-07-28] MEDS: TAMSULOSIN 0.4 MG CAP.ER.24H. PO SCH (08:25)
--- NOTE | 2018-07-28 09:10 | PDOC ---
Exam Note: Justin Note: Late entry for DOS 07.27.2018. Please also refer to the separate dictated note~ for this date of service dictated separately.~Patient seen individually. Discussed the patient with Nursing staff reviewed the chart.~Reviewed interim history and current functioning. Reviewed vital signs,~Labs/ Radiology~and current medications noted below. Continue current treatment with the changes noted in the dictated addendum note Assessment: Vital Signs: VS - Last 72 Hours, by Label Date Time Temp Pulse Resp B/P (MAP) Pulse Ox O2 Delivery O2 Flow Rate FiO2 07/28/18 05:41 97.9 65 16 144/70 (94) 94 07/27/18 16:20 98.8 80 18 113/62 (79) 97 07/27/18 06:01 97.7 76 16 109/63 (78) 97 07/26/18 16:56 98.0 70 18 127/72 (90) 98 07/26/18 06:39 97.3 75 18 149/83 (105) 99 Room Air 07/25/18 16:41 97.2 62 18 101/60 (74) 98 Vital Signs Date Time Temp Pulse Resp B/P (MAP) Pulse Ox O2 Delivery O2 Flow Rate FiO2 07/28/18 05:41 97.9 65 16 144/70 (94) 94 07/26/18 06:39 Room Air I&O Intake and Output 07/28/18 07:00 Intake Total 600 ml Balance 600 ml Intake Oral 600 ml # Voids 1 Current Medications: Meds: Current Medications Lorazepam (Ativan) 2 mg 1X ONCE PO Last administered on 06/17/18 19:54; Start 06/17/18 at 20:15; Stop 06/17/18 at 20:16; Status DC Acetaminophen (Tylenol) 650 mg PRN Q6HRS PRN PO PAIN / TEMP Last administered on 07/08/18at 11:59; Start 06/17/18 at 21:30 Multi-Ingredient Ointment (Analgesic [place]) 1 alan PRN QID PRN TP MUSCLE PAIN Last administered on 06/24/18at 13:11; Start 06/17/18 at 21:30 Al Hydroxide/Mg Hydroxide (Mylanta Plus Xs) 15 ml PRN AFTMEALHC PRN PO DYSPEPSIA Last administered on 07/09/18at 17:03; Start 06/17/18 at 21:30 Magnesium Hydroxide (Milk Of Magnesia) 2,400 mg PRN QHS PRN PO CONSTIPATION Last administered on 07/27/18 21:20; Start 06/17/18 at 21:30 Trazodone HCl (Desyrel) 25 mg PRN QHS PRN PO INSOMNIA Last administered on 23:21; Start 06/17/18 at 21:30; Stop 07/24/18 at 19:00; Status DC Olanzapine (ZyPREXA ZYDIS) 2.5 mg PRN Q2HR PRN PO PSYCHOSIS Last administered on 07/26/18 19:29; Start 06/17/18 at 21:30 Citalopram Hydrobromide (CeleXA) 40 mg DAILY PO Last administered on 06/19/18 08:09; Start 06/18/18 at 09:00; Stop 06/19/18 at 16:58; Status DC Memantine (Namenda) 10 mg BID PO Last administered on 07/28/18 08:25; Start at 09:00 Rivastigmine Tartrate (Exelon) 1.5 mg BIDWMEALS PO Last administered on 07:47; Start 06/18/18 at 08:00; Stop 06/23/18 at 16:38; Status DC Levothyroxine Sodium (Synthroid) 88 mcg DAILYAC PO Last administered on 08:11; Start 06/18/18 at 07:30; Stop 06/19/18 at 17:40; Status DC Tamsulosin HCl (Flomax) 0.4 mg DAILY PO Last administered on 07/28/18 08:25; Start 06/18/18 at 09:00 Hydroxyzine HCl (Atarax) 25 mg PRN Q2HR PRN PO ANXIETY / AGITATION Last administered on 06/21/18 18:40; Start 06/18/18 at 23:00; Stop 06/21/18 at 20:10; Status DC Carbamide Peroxide (Debrox) 5 drop BID AU Last administered on 06/24/18 11:00; Start 06/19/18 at 21:00; Stop 06/24/18 at 20:59; Status DC Mirtazapine (Remeron) 7.5 mg QHS PO Last administered on 06/22/18at 19:17; Start 06/19/18 at 21:00; Stop 06/23/18 at 18:12; Status DC Sertraline HCl (Zoloft) 50 mg DAILY PO Last administered on 06/24/18at 10:56; Start 06/20/18 at 09:00; Stop 06/24/18 at 18:42; Status DC Quetiapine Fumarate (SEROquel) 12.5 mg 0900,1700 PO Last administered on at 16:23; Start 06/19/18 at 17:00; Stop 06/22/18 at 16:55; Status DC Levothyroxine Sodium (Synthroid) 88 mcg DAILY06 PO Last administered on at 04:54; Start 06/20/18 at 06:00 Quetiapine Fumarate (SEROquel) 12.5 mg BID92 PO ; Start 06/23/18 at 09:00; Stop 06/23/18 at 09:00; Status DC Quetiapine Fumarate (SEROquel) 25 mg DAILY@1900 PO ; Start 06/22/18 at 19:00; Stop 06/22/18 at 19:00; Status DC Quetiapine Fumarate (SEROquel) 12.5 mg BID@0900,1500 PO Last administered on 06/24/18at 16:33; Start 06/23/18 at 09:00; Stop 06/24/18 at 18:46; Status DC Quetiapine Fumarate (SEROquel) 25 mg STK-MED ONCE .ROUTE ; Start 06/22/18 at 17: 12; Stop 06/22/18 at 17:14; Status DC Quetiapine Fumarate (SEROquel) 12.5 mg DAILY@1900 PO Last administered on at 18:16; Start 06/22/18 at 19:00; Stop 06/24/18 at 18:46; Status DC Rivastigmine Tartrate (Exelon) 1.5 mg DAILY PO Last administered on 06/24/18at 10 :58; Start 06/24/18 at 09:00; Stop 06/24/18 at 14:14; Status DC Rivastigmine Tartrate (Exelon) 3 mg HS PO ; Start 06/23/18 at 21:00; Stop at 21:00; Status DC Rivastigmine Tartrate (Exelon) 3 mg BIDWMEALS PO Last administered on 06/24/18at 10:54; Start 06/23/18 at 17:00; Stop 06/24/18 at 14:14; Status DC Rivastigmine Tartrate (Exelon) 3 mg HS PO ; Start 06/27/18 at 09:00; Stop at 09:00; Status DC Nystatin (Nystop) 1 alan BID TP Last administered on 07/14/18at 20:58; Start 06/23 at 21:00; Stop 07/14/18 at 21:27; Status DC Mirtazapine (Remeron) 15 mg QHS PO Last administered on 07/08/18at 21:01; Start 06/23/18 at 21:00; Stop 07/09/18 at 17:52; Status DC Nystatin (Nystop) 15 alan STK-MED ONCE TP Last administered on 06/23/18at 19:15; Start 06/23/18 at 19:15; Stop 06/23/18 at 19:17; Status DC Rivastigmine Tartrate (Exelon) 3 mg BID PO Last administered on 07/28/18at 08:24 ; Start 06/24/18 at 21:00 Fluvoxamine Maleate (Luvox) 25 mg QHS PO Last administered on 06/25/18at 19:22; Start 06/24/18 at 21:00; Stop 06/26/18 at 19:00; Status DC Fluvoxamine Maleate (Luvox) 50 mg QHS PO Last administered on 06/30/18at 19:36; Start 06/26/18 at 21:00; Stop 07/01/18 at 20:00; Status DC Quetiapine Fumarate (SEROquel) 25 mg DAILY@1900 PO Last administered on at 18:48; Start 06/24/18 at 19:00; Stop 07/27/18 at 18:08; Status DC Quetiapine Fumarate (SEROquel) 25 mg BID@0900,1500 PO Last administered on 07/26at 14:46; Start 06/25/18 at 09:00; Stop 07/26/18 at 23:47; Status DC Bisacodyl (Dulcolax Supp) 10 mg PRN DAILY PRN [place] CONSTIPATION Last administered on 06/27/18at 11:54; Start 06/27/18 at 10:30 Fluvoxamine Maleate (Luvox) 75 mg QHS PO Last administered on 07/13/18 19:16; Start 07/01/18 at 21:00; Stop 07/13/18 at 19:43; Status DC Divalproex Sodium (Depakote Sprinkles) 125 mg BID@0900,1700 PO Last administered on 07/25/18 18:01; Start 06/30/18 at 17:00; Stop 07/25/18 at 19:50; Status DC Mirtazapine (Remeron) 7.5 mg QHS PO Last administered on 07/22/18 20:50; Start 07/09/18 at 21:00; Stop 07/23/18 at 17:07; Status DC Fluvoxamine Maleate (Luvox) 100 mg QHS PO Last administered on 07/27/18 19:32 ; Start 07/13/18 at 21:00 Nystatin (Nystop) 1 alan PRN BID PRN TP skin rash; Start 07/14/18 at 21:30 Mirtazapine (Remeron) 15 mg QHS PO Last administered on 07/27/18at 19:32; Start 07/23/18 at 21:00 Trazodone HCl (Desyrel) 50 mg PRN QHS PRN PO INSOMNIA, MAY REPEAT X1 Last administered on 07/27/18at 19:32; Start 07/24/18 at 19:00 Divalproex Sodium (Depakote Sprinkles) 125 mg DAILY PO Last administered on 08:25; Start 07/26/18 at 09:00 Divalproex Sodium (Depakote Sprinkles) 250 mg AFTRNOON PO Last administered on 07/27/18 15:01; Start 07/26/18 at 15:00 Quetiapine Fumarate (SEROquel) 37.5 mg DAILY@1800 PO Last administered on 17:10; Start 07/27/18 at 18:00 Quetiapine Fumarate (SEROquel) 25 mg DAILY PO Last administered on 07/28/18at 08 :25; Start 07/27/18 at 09:00 Quetiapine Fumarate (SEROquel) 37.5 mg DAILY@1500 PO Last administered on at 15:01; Start 07/27/18 at 15:00 Active Scripts Active Reported Tamsulosin Hcl 0.4 Mg Cap.er.24h 0.4 Mg PO DAILY Levothyroxine Sodium 88 Mcg Tablet 88 Mcg PO DAILYAC Escitalopram Oxalate 20 Mg Tablet 20 Mg PO DAILY Rivastigmine (Rivastigmine Tartrate) 1.5 Mg Capsule 1.5 Mg PO BID Namenda Xr (Memantine Hcl) 28 Mg Cap.spr.24 28 Mg PO DAILY I have reviewed the current psychotropics carefully including drug interactions. Risk benefit ratio favors no change other than as noted in my dictated progress note. Diagnosis: Problems: (1) Mental status alteration (2) Anxiety disorder (3) Dementia in Alzheimer's disease with delusions (4) Dementia in Alzheimer's disease with depression (5) Dementia, vascular, with delusions (6) Dementia, vascular, with depression (7) Impulse control disorder MILAN TAYLOR MD Jul 28, 2018 09:10
[2018-07-28 15:04] VITALS: BP 99/59
[2018-07-28] MEDS: METHYL SALICYLATE/MENTHOL TOPICAL OINTMENT 29GM TUBE. TP PRN (17:58)
[2018-07-28] MEDS: MIRTAZAPINE 15 MG TABLET PO SCH (19:58)
[2018-07-28] MEDS: NYSTATIN TOPICAL POWDER 15GM BOTTLE. TP PRN (19:58)
[2018-07-28] MEDS: traZODone 50 MG TABLET. PO PRN ×2 (20:03→20:04)
--- NOTE | 2018-07-28 20:46 | PN ---
DATE: 07/27/2018 PSYCHIATRIC PROGRESS NOTE This late entry 07/27/2018 covers elements not covered in my initial note. SUBJECTIVE: I met with the patient in the evening. The patient slept 7 hours previous night. He takes his medications crushed, remains confused, wandering, and talking about his ex-girlfriend, Karen per report from Ancillary staff. He is more redirectable. REVIEW OF SYSTEMS: No CV, , eye, ENT or pulmonary system symptoms on review. Reliability poor. MENTAL STATUS EXAM: Oriented to himself. Insight, judgment, recent and remote memory, attention, concentration, fund of knowledge poor, consistent with his diagnosis mentioned in my initial note. PLAN: Continue psychotropics from initial note. We have increased the Seroquel. We will adjust further as clinically indicated. MAN Connie TAYLOR MD DR: NATAN/alfredo JOB#: [id number] / [id number]
--- NOTE | 2018-07-28 22:37 | PDOC ---
Exam Note: Justin Note: Please also refer to the separate dictated note~for this date of service dictated separately.~Patient seen individually. Discussed the patient with Nursing staff reviewed the chart.~Reviewed interim history and current functioning. Reviewed vital signs,~Labs/ Radiology~and current medications noted below. Continue current treatment with the changes noted in the dictated addendum note Assessment: Vital Signs: Vital Signs Date Time Temp Pulse Resp B/P (MAP) Pulse Ox O2 Delivery O2 Flow Rate FiO2 07/28/18 15:04 98.4 74 18 99/59 (72) 93 07/26/18 06:39 Room Air I&O Intake and Output 07/28/18 06:59 Intake Total 600 ml Balance 600 ml Intake Oral 600 ml # Voids 1 Current Medications: Meds: Current Medications Lorazepam (Ativan) 2 mg 1X ONCE PO Last administered on 06/17/18 19:54; Start 06/17/18 at 20:15; Stop 06/17/18 at 20:16; Status DC Acetaminophen (Tylenol) 650 mg PRN Q6HRS PRN PO PAIN / TEMP Last administered on 07/08/18 11:59; Start 06/17/18 at 21:30 Multi-Ingredient Ointment (Analgesic [place]) 1 alan PRN QID PRN TP MUSCLE PAIN Last administered on 07/28/18 17:58; Start 06/17/18 at 21:30 Al Hydroxide/Mg Hydroxide (Mylanta Plus Xs) 15 ml PRN AFTMEALHC PRN PO DYSPEPSIA Last administered on 07/09/18 17:03; Start 06/17/18 at 21:30 Magnesium Hydroxide (Milk Of Magnesia) 2,400 mg PRN QHS PRN PO CONSTIPATION Last administered on 07/27/18 21:20; Start 06/17/18 at 21:30 Trazodone HCl (Desyrel) 25 mg PRN QHS PRN PO INSOMNIA Last administered on 23:21; Start 06/17/18 at 21:30; Stop 07/24/18 at 19:00; Status DC Olanzapine (ZyPREXA ZYDIS) 2.5 mg PRN Q2HR PRN PO PSYCHOSIS Last administered on 07/28/18 20:25; Start 06/17/18 at 21:30 Citalopram Hydrobromide (CeleXA) 40 mg DAILY PO Last administered on 06/19/18 08:09; Start 06/18/18 at 09:00; Stop 06/19/18 at 16:58; Status DC Memantine (Namenda) 10 mg BID PO Last administered on 07/28/18 19:58; Start at 09:00 Rivastigmine Tartrate (Exelon) 1.5 mg BIDWMEALS PO Last administered on 07:47; Start 06/18/18 at 08:00; Stop 06/23/18 at 16:38; Status DC Levothyroxine Sodium (Synthroid) 88 mcg DAILYAC PO Last administered on 08:11; Start 06/18/18 at 07:30; Stop 06/19/18 at 17:40; Status DC Tamsulosin HCl (Flomax) 0.4 mg DAILY PO Last administered on 07/28/18 08:25; Start 06/18/18 at 09:00 Hydroxyzine HCl (Atarax) 25 mg PRN Q2HR PRN PO ANXIETY / AGITATION Last administered on 06/21/18 18:40; Start 06/18/18 at 23:00; Stop 06/21/18 at 20:10; Status DC Carbamide Peroxide (Debrox) 5 drop BID AU Last administered on 06/24/18 11:00; Start 06/19/18 at 21:00; Stop 06/24/18 at 20:59; Status DC Mirtazapine (Remeron) 7.5 mg QHS PO Last administered on 06/22/18 19:17; Start 06/19/18 at 21:00; Stop 06/23/18 at 18:12; Status DC Sertraline HCl (Zoloft) 50 mg DAILY PO Last administered on 06/24/18 10:56; Start 06/20/18 at 09:00; Stop 06/24/18 at 18:42; Status DC Quetiapine Fumarate (SEROquel) 12.5 mg 0900,1700 PO Last administered on 16:23; Start 06/19/18 at 17:00; Stop 06/22/18 at 16:55; Status DC Levothyroxine Sodium (Synthroid) 88 mcg DAILY06 PO Last administered on at 04:54; Start 06/20/18 at 06:00 Quetiapine Fumarate (SEROquel) 12.5 mg BID92 PO ; Start 06/23/18 at 09:00; Stop 06/23/18 at 09:00; Status DC Quetiapine Fumarate (SEROquel) 25 mg DAILY@1900 PO ; Start 06/22/18 at 19:00; Stop 06/22/18 at 19:00; Status DC Quetiapine Fumarate (SEROquel) 12.5 mg BID@0900,1500 PO Last administered on 06/24/18at 16:33; Start 06/23/18 at 09:00; Stop 06/24/18 at 18:46; Status DC Quetiapine Fumarate (SEROquel) 25 mg STK-MED ONCE .ROUTE ; Start 06/22/18 at 17: 12; Stop 06/22/18 at 17:14; Status DC Quetiapine Fumarate (SEROquel) 12.5 mg DAILY@1900 PO Last administered on at 18:16; Start 06/22/18 at 19:00; Stop 06/24/18 at 18:46; Status DC Rivastigmine Tartrate (Exelon) 1.5 mg DAILY PO Last administered on 06/24/18at 10 :58; Start 06/24/18 at 09:00; Stop 06/24/18 at 14:14; Status DC Rivastigmine Tartrate (Exelon) 3 mg HS PO ; Start 06/23/18 at 21:00; Stop at 21:00; Status DC Rivastigmine Tartrate (Exelon) 3 mg BIDWMEALS PO Last administered on 06/24/18at 10:54; Start 06/23/18 at 17:00; Stop 06/24/18 at 14:14; Status DC Rivastigmine Tartrate (Exelon) 3 mg HS PO ; Start 06/27/18 at 09:00; Stop at 09:00; Status DC Nystatin (Nystop) 1 alan BID TP Last administered on 07/14/18at 20:58; Start 06/23 at 21:00; Stop 07/14/18 at 21:27; Status DC Mirtazapine (Remeron) 15 mg QHS PO Last administered on 07/08/18at 21:01; Start 06/23/18 at 21:00; Stop 07/09/18 at 17:52; Status DC Nystatin (Nystop) 15 alan STK-MED ONCE TP Last administered on 06/23/18at 19:15; Start 06/23/18 at 19:15; Stop 06/23/18 at 19:17; Status DC Rivastigmine Tartrate (Exelon) 3 mg BID PO Last administered on 07/28/18at 19:58 ; Start 06/24/18 at 21:00 Fluvoxamine Maleate (Luvox) 25 mg QHS PO Last administered on 06/25/18at 19:22; Start 06/24/18 at 21:00; Stop 06/26/18 at 19:00; Status DC Fluvoxamine Maleate (Luvox) 50 mg QHS PO Last administered on 06/30/18at 19:36; Start 06/26/18 at 21:00; Stop 07/01/18 at 20:00; Status DC Quetiapine Fumarate (SEROquel) 25 mg DAILY@1900 PO Last administered on 18:48; Start 06/24/18 at 19:00; Stop 07/27/18 at 18:08; Status DC Quetiapine Fumarate (SEROquel) 25 mg BID@0900,1500 PO Last administered on 07/26at 14:46; Start 06/25/18 at 09:00; Stop 07/26/18 at 23:47; Status DC Bisacodyl (Dulcolax Supp) 10 mg PRN DAILY PRN [place] CONSTIPATION Last administered on 06/27/18at 11:54; Start 06/27/18 at 10:30 Fluvoxamine Maleate (Luvox) 75 mg QHS PO Last administered on 07/13/18at 19:16; Start 07/01/18 at 21:00; Stop 07/13/18 at 19:43; Status DC Divalproex Sodium (Depakote Sprinkles) 125 mg BID@0900,1700 PO Last administered on 07/25/18at 18:01; Start 06/30/18 at 17:00; Stop 07/25/18 at 19:50; Status DC Mirtazapine (Remeron) 7.5 mg QHS PO Last administered on 07/22/18 20:50; Start 07/09/18 at 21:00; Stop 07/23/18 at 17:07; Status DC Fluvoxamine Maleate (Luvox) 100 mg QHS PO Last administered on 07/28/18 19:58 ; Start 07/13/18 at 21:00 Nystatin (Nystop) 1 alan PRN BID PRN TP skin rash Last administered on 19:58; Start 07/14/18 at 21:30 Mirtazapine (Remeron) 15 mg QHS PO Last administered on 07/28/18 19:58; Start 07/23/18 at 21:00 Trazodone HCl (Desyrel) 50 mg PRN QHS PRN PO INSOMNIA, MAY REPEAT X1 Last administered on 07/28/18 20:04; Start 07/24/18 at 19:00 Divalproex Sodium (Depakote Sprinkles) 125 mg DAILY PO Last administered on 08:25; Start 07/26/18 at 09:00 Divalproex Sodium (Depakote Sprinkles) 250 mg AFTRNOON PO Last administered on 07/28/18 12:10; Start 07/26/18 at 15:00; Stop 07/28/18 at 17:07; Status DC Quetiapine Fumarate (SEROquel) 37.5 mg DAILY@1800 PO Last administered on 17:59; Start 07/27/18 at 18:00 Quetiapine Fumarate (SEROquel) 25 mg DAILY PO Last administered on 07/28/18 08 :25; Start 07/27/18 at 09:00 Quetiapine Fumarate (SEROquel) 37.5 mg DAILY@1500 PO Last administered on 14:52; Start 07/27/18 at 15:00 Divalproex Sodium (Depakote Sprinkles) 125 mg NOON PO ; Start 07/29/18 at 12:00 Divalproex Sodium (Depakote Sprinkles) 250 mg HS PO Last administered on at 20:00; Start 07/28/18 at 21:00 Active Scripts Active Reported Tamsulosin Hcl 0.4 Mg Cap.er.24h 0.4 Mg PO DAILY Levothyroxine Sodium 88 Mcg Tablet 88 Mcg PO DAILYAC Escitalopram Oxalate 20 Mg Tablet 20 Mg PO DAILY Rivastigmine (Rivastigmine Tartrate) 1.5 Mg Capsule 1.5 Mg PO BID Namenda Xr (Memantine Hcl) 28 Mg Cap.spr.24 28 Mg PO DAILY I have reviewed the current psychotropics carefully including drug interactions. Risk benefit ratio favors no change other than as noted in my dictated progress note. Diagnosis: Problems: (1) Mental status alteration (2) Anxiety disorder (3) Dementia in Alzheimer's disease with delusions (4) Dementia in Alzheimer's disease with depression (5) Dementia, vascular, with delusions (6) Dementia, vascular, with depression (7) Impulse control disorder MILAN TAYLOR MD Jul 28, 2018 22:37
[2018-07-29 05:56] VITALS: BP 133/73
[2018-07-29 07:37] LABS: BASO % 1 % (0-3); EOS # 0.6 x10^3/uL (0.0-0.7); EOS % 7 % (0-3); HEMATOCRIT 36.2 % (39.0-53.0); HEMOGLOBIN 12.2 g/dL (13.0-17.5); LYMPH % 26 % (24-48); MEAN CORPUSCULAR HEMOGLOBIN 31 pg (25-35); MEAN CORPUSCULAR HGB CONC 34 g/dL (31-37); MEAN CORPUSCULAR VOLUME 93 fL (79-100); MONO # 1.1 x10^3/uL (0.0-1.1); MONO % 14 % (0-9); NEUT # 4.1 x10^3uL (1.8-7.7); NEUT % 52 % (31-73); PLATELET COUNT 216 x10^3/uL (140-400); RED CELL DISTRIBUTION WIDTH 14.4 % (11.5-14.5); WHITE BLOOD COUNT 7.7 x10^3/uL (4.0-11.0)
[2018-07-29 07:50] LABS: ALBUMIN 2.7 g/dL (3.4-5.0); ALT (SGPT) 32 U/L (16-63); CHLORIDE 109 mmol/L (98-107); GFR 64.7; SODIUM 143 mmol/L (136-145); TOTAL BILIRUBIN 0.2 mg/dL (0.2-1.0)
[2018-07-29 08:06] LABS: ALBUMIN/GLOBULIN RATIO 0.6 (1.0-1.7); ALK PHOS 101 U/L (46-116); ANION GAP 5 (6-14); AST (SGOT) 18 U/L (15-37); BLOOD UREA NITROGEN 32 mg/dL (8-26); BUN/CREATININE RATIO 29 (6-20); CALCIUM 8.3 mg/dL (8.5-10.1); CARBON DIOXIDE 29 mmol/L (21-32); CREATININE 1.1 mg/dL (0.7-1.3); GLUCOSE 88 mg/dL (70-99); POTASSIUM 4.5 mmol/L (3.5-5.1); TOTAL PROTEIN 7.1 g/dL (6.4-8.2)
[2018-07-29 08:09] LABS: VAL ACID 21 mcg/mL (50-100)
[2018-07-29] MEDS: QUEtiapine 25 MG TABLET. PO SCH ×3 (10:09→17:30)
[2018-07-29] MEDS: MEMANTINE 10 MG TABLET. PO SCH ×2 (10:09→21:02)
[2018-07-29] MEDS: DIVALPROEX 125 MG CAP.SPRINK PO SCH ×3 (10:09→21:02)
[2018-07-29] MEDS: TAMSULOSIN 0.4 MG CAP.ER.24H. PO SCH (10:09)
[2018-07-29] MEDS: LEVOTHYROXINE 88 MCG TABLET PO SCH (10:09)
[2018-07-29] MEDS: RIVASTIGMINE 3 MG CAPSULE. PO SCH ×2 (10:09→21:02)
[2018-07-29 16:06] VITALS: BP 123/64
[2018-07-29] MEDS: MIRTAZAPINE 15 MG TABLET PO SCH (21:03)
--- NOTE | 2018-07-29 21:52 | PN ---
DATE: 07/28/2018 This late entry for 07/28/2018 covers elements not covered in my initial note. SUBJECTIVE: I met with the patient in the evening. The patient slept 5 hours previous night. He took his medications whole in the morning. In the evening, he received Zyprexa at 1540 due to increased agitation, was intrusive, was in the [place]. REVIEW OF SYSTEMS: No CV, , pulmonary, eye, ENT system symptoms on review. Reliability poor. MENTAL STATUS EXAM: Oriented to himself. Insight, judgment, recent and remote memory, attention, concentration, fund of knowledge poor, consistent with his diagnosis mentioned in my initial note. PLAN: Valproic acid level subtherapeutic at 13. Increase Depakote Sprinkles to 125 mg 9 a.m. and 3 p.m. and 250 mg at bedtime. Check CBC, CMP, valproic acid level in 3 days. Rest unchanged for now. MAN Connie TAYLOR MD DR: NATAN/alfredo JOB#: [id number] / [id number]
--- NOTE | 2018-07-29 22:15 | PDOC ---
Exam Note: Justin Note: Please also refer to the separate dictated note~for this date of service dictated separately.~Patient seen individually. Discussed the patient with Nursing staff reviewed the chart.~Reviewed interim history and current functioning. Reviewed vital signs,~Labs/ Radiology~and current medications noted below. Continue current treatment with the changes noted in the dictated addendum note Assessment: Vital Signs: Vital Signs Date Time Temp Pulse Resp B/P (MAP) Pulse Ox O2 Delivery O2 Flow Rate FiO2 07/29/18 16:06 97.6 82 20 123/64 (83) 98 07/26/18 06:39 Room Air I&O Intake and Output 07/29/18 07:00 Intake Total 840 ml Balance 840 ml Intake Oral 840 ml Labs: Laboratory Tests Test 07/29/18 07:14 White Blood Count 7.7 x10^3/uL (4.0-11.0) Red Blood Count 3.90 x10^6/uL (4.30-5.70) L Hemoglobin 12.2 g/dL (13.0-17.5) L Hematocrit 36.2 % (39.0-53.0) L Mean Corpuscular Volume 93 fL (79-100) Mean Corpuscular Hemoglobin 31 pg (25-35) Mean Corpuscular Hemoglobin Concent 34 g/dL (31-37) Red Cell Distribution Width 14.4 % (11.5-14.5) Platelet Count 216 x10^3/uL (140-400) Neutrophils (%) (Auto) 52 % (31-73) Lymphocytes (%) (Auto) 26 % (24-48) Monocytes (%) (Auto) 14 % (0-9) H Eosinophils (%) (Auto) 7 % (0-3) H Basophils (%) (Auto) 1 % (0-3) Neutrophils # (Auto) 4.1 x10^3uL (1.8-7.7) Lymphocytes # (Auto) 2.0 x10^3/uL (1.0-4.8) Monocytes # (Auto) 1.1 x10^3/uL (0.0-1.1) Eosinophils # (Auto) 0.6 x10^3/uL (0.0-0.7) Basophils # (Auto) 0.0 x10^3/uL (0.0-0.2) Sodium Level 143 mmol/L (136-145) Potassium Level 4.5 mmol/L (3.5-5.1) Chloride Level 109 mmol/L (98-107) H Carbon Dioxide Level 29 mmol/L (21-32) Anion Gap 5 (6-14) L Blood Urea Nitrogen 32 mg/dL (8-26) H Creatinine 1.1 mg/dL (0.7-1.3) Estimated GFR (Cockcroft-Gault) 64.7 BUN/Creatinine Ratio 29 (6-20) H Glucose Level 88 mg/dL (70-99) Calcium Level 8.3 mg/dL (8.5-10.1) L Total Bilirubin 0.2 mg/dL (0.2-1.0) Aspartate Amino Transferase (AST) 18 U/L (15-37) Alanine Aminotransferase (ALT) 32 U/L (16-63) Alkaline Phosphatase 101 U/L (46-116) Total Protein 7.1 g/dL (6.4-8.2) Albumin 2.7 g/dL (3.4-5.0) L Albumin/Globulin Ratio 0.6 (1.0-1.7) L Valproic Acid Level 21 mcg/mL (50-100) L Valproic Acid Last Dose Date 07/28/18 Valproic Acid Last Dose Time 1500 Current Medications: Meds: Current Medications Lorazepam (Ativan) 2 mg 1X ONCE PO Last administered on 06/17/18 19:54; Start 06/17/18 at 20:15; Stop 06/17/18 at 20:16; Status DC Acetaminophen (Tylenol) 650 mg PRN Q6HRS PRN PO PAIN / TEMP Last administered on 07/08/18 11:59; Start 06/17/18 at 21:30 Multi-Ingredient Ointment (Analgesic [place]) 1 alan PRN QID PRN TP MUSCLE PAIN Last administered on 07/28/18 17:58; Start 06/17/18 at 21:30 Al Hydroxide/Mg Hydroxide (Mylanta Plus Xs) 15 ml PRN AFTMEALHC PRN PO DYSPEPSIA Last administered on 07/09/18 17:03; Start 06/17/18 at 21:30 Magnesium Hydroxide (Milk Of Magnesia) 2,400 mg PRN QHS PRN PO CONSTIPATION Last administered on 07/27/18 21:20; Start 06/17/18 at 21:30 Trazodone HCl (Desyrel) 25 mg PRN QHS PRN PO INSOMNIA Last administered on 23:21; Start 06/17/18 at 21:30; Stop 07/24/18 at 19:00; Status DC Olanzapine (ZyPREXA ZYDIS) 2.5 mg PRN Q2HR PRN PO PSYCHOSIS Last administered on 07/28/18 20:25; Start 06/17/18 at 21:30 Citalopram Hydrobromide (CeleXA) 40 mg DAILY PO Last administered on 06/19/18 08:09; Start 06/18/18 at 09:00; Stop 06/19/18 at 16:58; Status DC Memantine (Namenda) 10 mg BID PO Last administered on 07/29/18 21:02; Start at 09:00 Rivastigmine Tartrate (Exelon) 1.5 mg BIDWMEALS PO Last administered on 07:47; Start 06/18/18 at 08:00; Stop 06/23/18 at 16:38; Status DC Levothyroxine Sodium (Synthroid) 88 mcg DAILYAC PO Last administered on 08:11; Start 06/18/18 at 07:30; Stop 06/19/18 at 17:40; Status DC Tamsulosin HCl (Flomax) 0.4 mg DAILY PO Last administered on 07/29/18 10:09; Start 06/18/18 at 09:00 Hydroxyzine HCl (Atarax) 25 mg PRN Q2HR PRN PO ANXIETY / AGITATION Last administered on 06/21/18 18:40; Start 06/18/18 at 23:00; Stop 06/21/18 at 20:10; Status DC Carbamide Peroxide (Debrox) 5 drop BID AU Last administered on 06/24/18 11:00; Start 06/19/18 at 21:00; Stop 06/24/18 at 20:59; Status DC Mirtazapine (Remeron) 7.5 mg QHS PO Last administered on 06/22/18 19:17; Start 06/19/18 at 21:00; Stop 06/23/18 at 18:12; Status DC Sertraline HCl (Zoloft) 50 mg DAILY PO Last administered on 06/24/18at 10:56; Start 06/20/18 at 09:00; Stop 06/24/18 at 18:42; Status DC Quetiapine Fumarate (SEROquel) 12.5 mg 0900,1700 PO Last administered on at 16:23; Start 06/19/18 at 17:00; Stop 06/22/18 at 16:55; Status DC Levothyroxine Sodium (Synthroid) 88 mcg DAILY06 PO Last administered on at 10:09; Start 06/20/18 at 06:00 Quetiapine Fumarate (SEROquel) 12.5 mg BID92 PO ; Start 06/23/18 at 09:00; Stop 06/23/18 at 09:00; Status DC Quetiapine Fumarate (SEROquel) 25 mg DAILY@1900 PO ; Start 06/22/18 at 19:00; Stop 06/22/18 at 19:00; Status DC Quetiapine Fumarate (SEROquel) 12.5 mg BID@0900,1500 PO Last administered on 06/24/18at 16:33; Start 06/23/18 at 09:00; Stop 06/24/18 at 18:46; Status DC Quetiapine Fumarate (SEROquel) 25 mg STK-MED ONCE .ROUTE ; Start 06/22/18 at 17: 12; Stop 06/22/18 at 17:14; Status DC Quetiapine Fumarate (SEROquel) 12.5 mg DAILY@1900 PO Last administered on at 18:16; Start 06/22/18 at 19:00; Stop 06/24/18 at 18:46; Status DC Rivastigmine Tartrate (Exelon) 1.5 mg DAILY PO Last administered on 06/24/18at 10 :58; Start 06/24/18 at 09:00; Stop 06/24/18 at 14:14; Status DC Rivastigmine Tartrate (Exelon) 3 mg HS PO ; Start 06/23/18 at 21:00; Stop at 21:00; Status DC Rivastigmine Tartrate (Exelon) 3 mg BIDWMEALS PO Last administered on 06/24/18at 10:54; Start 06/23/18 at 17:00; Stop 06/24/18 at 14:14; Status DC Rivastigmine Tartrate (Exelon) 3 mg HS PO ; Start 06/27/18 at 09:00; Stop at 09:00; Status DC Nystatin (Nystop) 1 alan BID TP Last administered on 07/14/18at 20:58; Start 06/23 at 21:00; Stop 07/14/18 at 21:27; Status DC Mirtazapine (Remeron) 15 mg QHS PO Last administered on 07/08/18at 21:01; Start 06/23/18 at 21:00; Stop 07/09/18 at 17:52; Status DC Nystatin (Nystop) 15 alan STK-MED ONCE TP Last administered on 06/23/18at 19:15; Start 06/23/18 at 19:15; Stop 06/23/18 at 19:17; Status DC Rivastigmine Tartrate (Exelon) 3 mg BID PO Last administered on 07/29/18at 21:02 ; Start 06/24/18 at 21:00 Fluvoxamine Maleate (Luvox) 25 mg QHS PO Last administered on 06/25/18at 19:22; Start 06/24/18 at 21:00; Stop 06/26/18 at 19:00; Status DC Fluvoxamine Maleate (Luvox) 50 mg QHS PO Last administered on 06/30/18at 19:36; Start 06/26/18 at 21:00; Stop 07/01/18 at 20:00; Status DC Quetiapine Fumarate (SEROquel) 25 mg DAILY@1900 PO Last administered on at 18:48; Start 06/24/18 at 19:00; Stop 07/27/18 at 18:08; Status DC Quetiapine Fumarate (SEROquel) 25 mg BID@0900,1500 PO Last administered on 07/26at 14:46; Start 06/25/18 at 09:00; Stop 07/26/18 at 23:47; Status DC Bisacodyl (Dulcolax Supp) 10 mg PRN DAILY PRN [place] CONSTIPATION Last administered on 06/27/18 11:54; Start 06/27/18 at 10:30 Fluvoxamine Maleate (Luvox) 75 mg QHS PO Last administered on 07/13/18 19:16; Start 07/01/18 at 21:00; Stop 07/13/18 at 19:43; Status DC Divalproex Sodium (Depakote Sprinkles) 125 mg BID@0900,1700 PO Last administered on 07/25/18 18:01; Start 06/30/18 at 17:00; Stop 07/25/18 at 19:50; Status DC Mirtazapine (Remeron) 7.5 mg QHS PO Last administered on 07/22/18 20:50; Start 07/09/18 at 21:00; Stop 07/23/18 at 17:07; Status DC Fluvoxamine Maleate (Luvox) 100 mg QHS PO Last administered on 07/29/18 21:03 ; Start 07/13/18 at 21:00 Nystatin (Nystop) 1 alan PRN BID PRN TP skin rash Last administered on 19:58; Start 07/14/18 at 21:30 Mirtazapine (Remeron) 15 mg QHS PO Last administered on 07/29/18 21:03; Start 07/23/18 at 21:00 Trazodone HCl (Desyrel) 50 mg PRN QHS PRN PO INSOMNIA, MAY REPEAT X1 Last administered on 07/28/18 20:04; Start 07/24/18 at 19:00 Divalproex Sodium (Depakote Sprinkles) 125 mg DAILY PO Last administered on 10:09; Start 07/26/18 at 09:00 Divalproex Sodium (Depakote Sprinkles) 250 mg AFTRNOON PO Last administered on 07/28/18 12:10; Start 07/26/18 at 15:00; Stop 07/28/18 at 17:07; Status DC Quetiapine Fumarate (SEROquel) 37.5 mg DAILY@1800 PO Last administered on 17:30; Start 07/27/18 at 18:00 Quetiapine Fumarate (SEROquel) 25 mg DAILY PO Last administered on 07/29/18at 10 :09; Start 07/27/18 at 09:00 Quetiapine Fumarate (SEROquel) 37.5 mg DAILY@1500 PO Last administered on at 15:19; Start 07/27/18 at 15:00 Divalproex Sodium (Depakote Sprinkles) 125 mg NOON PO Last administered on 07/29at 12:40; Start 07/29/18 at 12:00 Divalproex Sodium (Depakote Sprinkles) 250 mg HS PO Last administered on at 21:02; Start 07/28/18 at 21:00 Active Scripts Active Reported Tamsulosin Hcl 0.4 Mg Cap.er.24h 0.4 Mg PO DAILY Levothyroxine Sodium 88 Mcg Tablet 88 Mcg PO DAILYAC Escitalopram Oxalate 20 Mg Tablet 20 Mg PO DAILY Rivastigmine (Rivastigmine Tartrate) 1.5 Mg Capsule 1.5 Mg PO BID Namenda Xr (Memantine Hcl) 28 Mg Cap.spr.24 28 Mg PO DAILY I have reviewed the current psychotropics carefully including drug interactions. Risk benefit ratio favors no change other than as noted in my dictated progress note. Diagnosis: Problems: (1) Mental status alteration (2) Anxiety disorder (3) Dementia in Alzheimer's disease with delusions (4) Dementia in Alzheimer's disease with depression (5) Dementia, vascular, with delusions (6) Dementia, vascular, with depression (7) Impulse control disorder MILAN TAYLOR MD Jul 29, 2018 22:15
[2018-07-30] MEDS: LEVOTHYROXINE 88 MCG TABLET PO SCH (05:23)
[2018-07-30 06:12] VITALS: BP 116/60
[2018-07-30] MEDS: RIVASTIGMINE 3 MG CAPSULE. PO SCH ×2 (07:30→20:16)
[2018-07-30] MEDS: DIVALPROEX 125 MG CAP.SPRINK PO SCH ×3 (07:30→20:17)
[2018-07-30] MEDS: QUEtiapine 25 MG TABLET. PO SCH ×3 (07:30→18:31)
[2018-07-30] MEDS: TAMSULOSIN 0.4 MG CAP.ER.24H. PO SCH (07:30)
[2018-07-30] MEDS: MEMANTINE 10 MG TABLET. PO SCH ×2 (07:30→20:16)
[2018-07-30 16:32] VITALS: BP 108/58
[2018-07-30] MEDS: MIRTAZAPINE 15 MG TABLET PO SCH (20:16)
--- NOTE | 2018-07-30 22:37 | PDOC ---
Exam Note: Justin Note: Please also refer to the separate dictated note~for this date of service dictated separately.~Patient seen individually. Discussed the patient with Nursing staff reviewed the chart.~Reviewed interim history and current functioning. Reviewed vital signs,~Labs/ Radiology~and current medications noted below. Continue current treatment with the changes noted in the dictated addendum note Assessment: Vital Signs: Vital Signs Date Time Temp Pulse Resp B/P (MAP) Pulse Ox O2 Delivery O2 Flow Rate FiO2 07/30/18 16:32 97.7 95 20 108/58 (75) 98 07/30/18 06:12 Room Air I&O Intake and Output 07/30/18 07:00 Intake Total 1080 ml Balance 1080 ml Intake Oral 1080 ml Current Medications: Meds: Current Medications Lorazepam (Ativan) 2 mg 1X ONCE PO Last administered on 06/17/18 19:54; Start 06/17/18 at 20:15; Stop 06/17/18 at 20:16; Status DC Acetaminophen (Tylenol) 650 mg PRN Q6HRS PRN PO PAIN / TEMP Last administered on 07/08/18 11:59; Start 06/17/18 at 21:30 Multi-Ingredient Ointment (Analgesic [place]) 1 alan PRN QID PRN TP MUSCLE PAIN Last administered on 07/28/18 17:58; Start 06/17/18 at 21:30 Al Hydroxide/Mg Hydroxide (Mylanta Plus Xs) 15 ml PRN AFTMEALHC PRN PO DYSPEPSIA Last administered on 07/09/18 17:03; Start 06/17/18 at 21:30 Magnesium Hydroxide (Milk Of Magnesia) 2,400 mg PRN QHS PRN PO CONSTIPATION Last administered on 07/27/18 21:20; Start 06/17/18 at 21:30 Trazodone HCl (Desyrel) 25 mg PRN QHS PRN PO INSOMNIA Last administered on 23:21; Start 06/17/18 at 21:30; Stop 07/24/18 at 19:00; Status DC Olanzapine (ZyPREXA ZYDIS) 2.5 mg PRN Q2HR PRN PO PSYCHOSIS Last administered on 07/30/18 16:08; Start 06/17/18 at 21:30 Citalopram Hydrobromide (CeleXA) 40 mg DAILY PO Last administered on 06/19/18 08:09; Start 06/18/18 at 09:00; Stop 06/19/18 at 16:58; Status DC Memantine (Namenda) 10 mg BID PO Last administered on 07/30/18at 20:16; Start at 09:00 Rivastigmine Tartrate (Exelon) 1.5 mg BIDWMEALS PO Last administered on at 07:47; Start 06/18/18 at 08:00; Stop 06/23/18 at 16:38; Status DC Levothyroxine Sodium (Synthroid) 88 mcg DAILYAC PO Last administered on 08:11; Start 06/18/18 at 07:30; Stop 06/19/18 at 17:40; Status DC Tamsulosin HCl (Flomax) 0.4 mg DAILY PO Last administered on 07/30/18at 07:30; Start 06/18/18 at 09:00 Hydroxyzine HCl (Atarax) 25 mg PRN Q2HR PRN PO ANXIETY / AGITATION Last administered on 06/21/18 18:40; Start 06/18/18 at 23:00; Stop 06/21/18 at 20:10; Status DC Carbamide Peroxide (Debrox) 5 drop BID AU Last administered on 06/24/18at 11:00; Start 06/19/18 at 21:00; Stop 06/24/18 at 20:59; Status DC Mirtazapine (Remeron) 7.5 mg QHS PO Last administered on 06/22/18at 19:17; Start 06/19/18 at 21:00; Stop 06/23/18 at 18:12; Status DC Sertraline HCl (Zoloft) 50 mg DAILY PO Last administered on 06/24/18at 10:56; Start 06/20/18 at 09:00; Stop 06/24/18 at 18:42; Status DC Quetiapine Fumarate (SEROquel) 12.5 mg 0900,1700 PO Last administered on 16:23; Start 06/19/18 at 17:00; Stop 06/22/18 at 16:55; Status DC Levothyroxine Sodium (Synthroid) 88 mcg DAILY06 PO Last administered on at 05:23; Start 06/20/18 at 06:00 Quetiapine Fumarate (SEROquel) 12.5 mg BID92 PO ; Start 06/23/18 at 09:00; Stop 06/23/18 at 09:00; Status DC Quetiapine Fumarate (SEROquel) 25 mg DAILY@1900 PO ; Start 06/22/18 at 19:00; Stop 06/22/18 at 19:00; Status DC Quetiapine Fumarate (SEROquel) 12.5 mg BID@0900,1500 PO Last administered on 06/24/18at 16:33; Start 06/23/18 at 09:00; Stop 06/24/18 at 18:46; Status DC Quetiapine Fumarate (SEROquel) 25 mg STK-MED ONCE .ROUTE ; Start 06/22/18 at 17: 12; Stop 06/22/18 at 17:14; Status DC Quetiapine Fumarate (SEROquel) 12.5 mg DAILY@1900 PO Last administered on at 18:16; Start 06/22/18 at 19:00; Stop 06/24/18 at 18:46; Status DC Rivastigmine Tartrate (Exelon) 1.5 mg DAILY PO Last administered on 06/24/18at 10 :58; Start 06/24/18 at 09:00; Stop 06/24/18 at 14:14; Status DC Rivastigmine Tartrate (Exelon) 3 mg HS PO ; Start 06/23/18 at 21:00; Stop at 21:00; Status DC Rivastigmine Tartrate (Exelon) 3 mg BIDWMEALS PO Last administered on 06/24/18at 10:54; Start 06/23/18 at 17:00; Stop 06/24/18 at 14:14; Status DC Rivastigmine Tartrate (Exelon) 3 mg HS PO ; Start 06/27/18 at 09:00; Stop at 09:00; Status DC Nystatin (Nystop) 1 alan BID TP Last administered on 07/14/18at 20:58; Start 06/23 at 21:00; Stop 07/14/18 at 21:27; Status DC Mirtazapine (Remeron) 15 mg QHS PO Last administered on 07/08/18 21:01; Start 06/23/18 at 21:00; Stop 07/09/18 at 17:52; Status DC Nystatin (Nystop) 15 alan STK-MED ONCE TP Last administered on 06/23/18at 19:15; Start 06/23/18 at 19:15; Stop 06/23/18 at 19:17; Status DC Rivastigmine Tartrate (Exelon) 3 mg BID PO Last administered on 07/30/18 20:16 ; Start 06/24/18 at 21:00 Fluvoxamine Maleate (Luvox) 25 mg QHS PO Last administered on 06/25/18at 19:22; Start 06/24/18 at 21:00; Stop 06/26/18 at 19:00; Status DC Fluvoxamine Maleate (Luvox) 50 mg QHS PO Last administered on 06/30/18at 19:36; Start 06/26/18 at 21:00; Stop 07/01/18 at 20:00; Status DC Quetiapine Fumarate (SEROquel) 25 mg DAILY@1900 PO Last administered on 18:48; Start 06/24/18 at 19:00; Stop 07/27/18 at 18:08; Status DC Quetiapine Fumarate (SEROquel) 25 mg BID@0900,1500 PO Last administered on 07/26at 14:46; Start 06/25/18 at 09:00; Stop 07/26/18 at 23:47; Status DC Bisacodyl (Dulcolax Supp) 10 mg PRN DAILY PRN [place] CONSTIPATION Last administered on 06/27/18at 11:54; Start 06/27/18 at 10:30 Fluvoxamine Maleate (Luvox) 75 mg QHS PO Last administered on 07/13/18at 19:16; Start 07/01/18 at 21:00; Stop 07/13/18 at 19:43; Status DC Divalproex Sodium (Depakote Sprinkles) 125 mg BID@0900,1700 PO Last administered on 07/25/18at 18:01; Start 06/30/18 at 17:00; Stop 07/25/18 at 19:50; Status DC Mirtazapine (Remeron) 7.5 mg QHS PO Last administered on 07/22/18 20:50; Start 07/09/18 at 21:00; Stop 07/23/18 at 17:07; Status DC Fluvoxamine Maleate (Luvox) 100 mg QHS PO Last administered on 07/30/18 20:17 ; Start 07/13/18 at 21:00 Nystatin (Nystop) 1 alan PRN BID PRN TP skin rash Last administered on 19:58; Start 07/14/18 at 21:30 Mirtazapine (Remeron) 15 mg QHS PO Last administered on 07/30/18 20:16; Start 07/23/18 at 21:00 Trazodone HCl (Desyrel) 50 mg PRN QHS PRN PO INSOMNIA, MAY REPEAT X1 Last administered on 07/28/18 20:04; Start 07/24/18 at 19:00 Divalproex Sodium (Depakote Sprinkles) 125 mg DAILY PO Last administered on 07:30; Start 07/26/18 at 09:00 Divalproex Sodium (Depakote Sprinkles) 250 mg AFTRNOON PO Last administered on 07/28/18 12:10; Start 07/26/18 at 15:00; Stop 07/28/18 at 17:07; Status DC Quetiapine Fumarate (SEROquel) 37.5 mg DAILY@1800 PO Last administered on 18:31; Start 07/27/18 at 18:00 Quetiapine Fumarate (SEROquel) 25 mg DAILY PO Last administered on 07/30/18 07 :30; Start 07/27/18 at 09:00 Quetiapine Fumarate (SEROquel) 37.5 mg DAILY@1500 PO Last administered on 15:02; Start 07/27/18 at 15:00 Divalproex Sodium (Depakote Sprinkles) 125 mg NOON PO Last administered on 07/30 12:32; Start 07/29/18 at 12:00 Divalproex Sodium (Depakote Sprinkles) 250 mg HS PO Last administered on at 20:17; Start 07/28/18 at 21:00 Active Scripts Active Reported Tamsulosin Hcl 0.4 Mg Cap.er.24h 0.4 Mg PO DAILY Levothyroxine Sodium 88 Mcg Tablet 88 Mcg PO DAILYAC Escitalopram Oxalate 20 Mg Tablet 20 Mg PO DAILY Rivastigmine (Rivastigmine Tartrate) 1.5 Mg Capsule 1.5 Mg PO BID Namenda Xr (Memantine Hcl) 28 Mg Cap.spr.24 28 Mg PO DAILY I have reviewed the current psychotropics carefully including drug interactions. Risk benefit ratio favors no change other than as noted in my dictated progress note. Diagnosis: Problems: (1) Mental status alteration (2) Anxiety disorder (3) Dementia in Alzheimer's disease with delusions (4) Dementia in Alzheimer's disease with depression (5) Dementia, vascular, with delusions (6) Dementia, vascular, with depression (7) Impulse control disorder MILAN TAYLOR MD Jul 30, 2018 22:37
[2018-07-31] MEDS: LEVOTHYROXINE 88 MCG TABLET PO SCH (04:54)
[2018-07-31 06:18] VITALS: BP 129/80
[2018-07-31 08:48] LABS: BASO % 1 % (0-3); EOS # 0.5 x10^3/uL (0.0-0.7); EOS % 6 % (0-3); HEMATOCRIT 37.8 % (39.0-53.0); HEMOGLOBIN 12.9 g/dL (13.0-17.5); LYMPH # 2.3 x10^3/uL (1.0-4.8); LYMPH % 30 % (24-48); MEAN CORPUSCULAR HEMOGLOBIN 32 pg (25-35); MEAN CORPUSCULAR HGB CONC 34 g/dL (31-37); MEAN CORPUSCULAR VOLUME 93 fL (79-100); MONO # 0.9 x10^3/uL (0.0-1.1); MONO % 12 % (0-9); NEUT # 3.9 x10^3uL (1.8-7.7); NEUT % 51 % (31-73); PLATELET COUNT 214 x10^3/uL (140-400); RED BLOOD COUNT 4.08 x10^6/uL (4.30-5.70); RED CELL DISTRIBUTION WIDTH 14.6 % (11.5-14.5); WHITE BLOOD COUNT 7.7 x10^3/uL (4.0-11.0)
[2018-07-31] MEDS: TAMSULOSIN 0.4 MG CAP.ER.24H. PO SCH (08:48)
[2018-07-31] MEDS: QUEtiapine 25 MG TABLET. PO SCH ×3 (08:48→16:40)
[2018-07-31] MEDS: MEMANTINE 10 MG TABLET. PO SCH ×2 (08:48→19:21)
[2018-07-31] MEDS: RIVASTIGMINE 3 MG CAPSULE. PO SCH ×2 (08:48→19:21)
[2018-07-31] MEDS: DIVALPROEX 125 MG CAP.SPRINK PO SCH ×3 (08:49→19:21)
[2018-07-31 09:14] LABS: VAL ACID 19 mcg/mL (50-100)
[2018-07-31 09:18] LABS: ALBUMIN 2.6 g/dL (3.4-5.0); ALBUMIN/GLOBULIN RATIO 0.5 (1.0-1.7); CALCIUM 8.3 mg/dL (8.5-10.1); CREATININE 1.1 mg/dL (0.7-1.3); GFR 64.7; POTASSIUM 4.3 mmol/L (3.5-5.1); TOTAL BILIRUBIN 0.2 mg/dL (0.2-1.0); TOTAL PROTEIN 7.4 g/dL (6.4-8.2)
[2018-07-31 16:45] VITALS: BP 134/74
[2018-07-31] MEDS: MIRTAZAPINE 15 MG TABLET PO SCH (19:21)
--- NOTE | 2018-07-31 20:14 | PN ---
DATE: 07/29/2018 PSYCHIATRIC PROGRESS NOTE This late entry for 07/29/2018, covers elements not covered in my initial note. SUBJECTIVE: I met with the patient in the evening. The patient slept 4-3/4 hours previous night. He did well at night, better during the day on 07/29/2018, takes meds in ice cream, confused, wanders the hallways. REVIEW OF SYSTEMS: No CV, , pulmonary, eye, ENT system symptoms on review. Reliability poor. MENTAL STATUS EXAM: Oriented to himself. Insight, judgment, recent and remote memory, attention, concentration, fund of knowledge poor, consistent with his diagnosis mentioned in my initial note. PLAN: No change from initial note for now. MAN Connie TAYLOR MD DR: NATAN/alfredo JOB#: [id number] / [id number]
--- NOTE | 2018-07-31 20:15 | PN ---
DATE: 07/30/2018 PSYCHIATRIC PROGRESS NOTE This late entry 07/30/2018 covers elements not covered in my initial note. SUBJECTIVE: I met with the patient in the evening and staffed at a treatment team meeting with the entire team in the morning. The patient is sleeping 5-1/4 hours average. Appetite 80%. He is better. Does get confused, urinates on the floor, in the day on 07/30/2018 in the morning. REVIEW OF SYSTEMS: No CV, , pulmonary, eye, ENT system symptoms on review. Reliability poor. MENTAL STATUS EXAM: Oriented to himself. Insight, judgment, recent and remote memory, attention, concentration, fund of knowledge poor, consistent with his diagnosis mentioned in my initial note. PLAN: No change from initial note for now. MAN Connie TAYLOR MD DR: NATAN/alfredo JOB#: [id number] / [id number]
--- NOTE | 2018-07-31 22:36 | PDOC ---
Exam Note: Justin Note: Please also refer to the separate dictated note~for this date of service dictated separately.~Patient seen individually. Discussed the patient with Nursing staff reviewed the chart.~Reviewed interim history and current functioning. Reviewed vital signs,~Labs/ Radiology~and current medications noted below. Continue current treatment with the changes noted in the dictated addendum note Assessment: Vital Signs: Vital Signs Date Time Temp Pulse Resp B/P (MAP) Pulse Ox O2 Delivery O2 Flow Rate FiO2 07/31/18 16:45 98.0 76 20 134/74 (94) 100 Room Air I&O Intake and Output 07/31/18 07:00 Intake Total 600 ml Balance 600 ml Intake Oral 600 ml Labs: Laboratory Tests Test 07/31/18 08:35 White Blood Count 7.7 x10^3/uL (4.0-11.0) Red Blood Count 4.08 x10^6/uL (4.30-5.70) L Hemoglobin 12.9 g/dL (13.0-17.5) L Hematocrit 37.8 % (39.0-53.0) L Mean Corpuscular Volume 93 fL (79-100) Mean Corpuscular Hemoglobin 32 pg (25-35) Mean Corpuscular Hemoglobin Concent 34 g/dL (31-37) Red Cell Distribution Width 14.6 % (11.5-14.5) H Platelet Count 214 x10^3/uL (140-400) Neutrophils (%) (Auto) 51 % (31-73) Lymphocytes (%) (Auto) 30 % (24-48) Monocytes (%) (Auto) 12 % (0-9) H Eosinophils (%) (Auto) 6 % (0-3) H Basophils (%) (Auto) 1 % (0-3) Neutrophils # (Auto) 3.9 x10^3uL (1.8-7.7) Lymphocytes # (Auto) 2.3 x10^3/uL (1.0-4.8) Monocytes # (Auto) 0.9 x10^3/uL (0.0-1.1) Eosinophils # (Auto) 0.5 x10^3/uL (0.0-0.7) Basophils # (Auto) 0.0 x10^3/uL (0.0-0.2) Sodium Level 143 mmol/L (136-145) Potassium Level 4.3 mmol/L (3.5-5.1) Chloride Level 108 mmol/L (98-107) H Carbon Dioxide Level 29 mmol/L (21-32) Anion Gap 6 (6-14) Blood Urea Nitrogen 29 mg/dL (8-26) H Creatinine 1.1 mg/dL (0.7-1.3) Estimated GFR (Cockcroft-Gault) 64.7 BUN/Creatinine Ratio 26 (6-20) H Glucose Level 84 mg/dL (70-99) Calcium Level 8.3 mg/dL (8.5-10.1) L Total Bilirubin 0.2 mg/dL (0.2-1.0) Aspartate Amino Transferase (AST) 21 U/L (15-37) Alanine Aminotransferase (ALT) 30 U/L (16-63) Alkaline Phosphatase 97 U/L (46-116) Total Protein 7.4 g/dL (6.4-8.2) Albumin 2.6 g/dL (3.4-5.0) L Albumin/Globulin Ratio 0.5 (1.0-1.7) L Valproic Acid Level 19 mcg/mL (50-100) L Valproic Acid Last Dose Date 07/30/18 Valproic Acid Last Dose Time 2100 Current Medications: Meds: Current Medications Lorazepam (Ativan) 2 mg 1X ONCE PO Last administered on 06/17/18 19:54; Start 06/17/18 at 20:15; Stop 06/17/18 at 20:16; Status DC Acetaminophen (Tylenol) 650 mg PRN Q6HRS PRN PO PAIN / TEMP Last administered on 07/08/18 11:59; Start 06/17/18 at 21:30 Multi-Ingredient Ointment (Analgesic [place]) 1 alan PRN QID PRN TP MUSCLE PAIN Last administered on 07/28/18 17:58; Start 06/17/18 at 21:30 Al Hydroxide/Mg Hydroxide (Mylanta Plus Xs) 15 ml PRN AFTMEALHC PRN PO DYSPEPSIA Last administered on 07/09/18 17:03; Start 06/17/18 at 21:30 Magnesium Hydroxide (Milk Of Magnesia) 2,400 mg PRN QHS PRN PO CONSTIPATION Last administered on 07/27/18 21:20; Start 06/17/18 at 21:30 Trazodone HCl (Desyrel) 25 mg PRN QHS PRN PO INSOMNIA Last administered on 23:21; Start 06/17/18 at 21:30; Stop 07/24/18 at 19:00; Status DC Olanzapine (ZyPREXA ZYDIS) 2.5 mg PRN Q2HR PRN PO PSYCHOSIS Last administered on 07/31/18 18:24; Start 06/17/18 at 21:30 Citalopram Hydrobromide (CeleXA) 40 mg DAILY PO Last administered on 06/19/18 08:09; Start 06/18/18 at 09:00; Stop 06/19/18 at 16:58; Status DC Memantine (Namenda) 10 mg BID PO Last administered on 07/31/18 19:21; Start at 09:00 Rivastigmine Tartrate (Exelon) 1.5 mg BIDWMEALS PO Last administered on at 07:47; Start 06/18/18 at 08:00; Stop 06/23/18 at 16:38; Status DC Levothyroxine Sodium (Synthroid) 88 mcg DAILYAC PO Last administered on 08:11; Start 06/18/18 at 07:30; Stop 06/19/18 at 17:40; Status DC Tamsulosin HCl (Flomax) 0.4 mg DAILY PO Last administered on 07/31/18 08:48; Start 06/18/18 at 09:00 Hydroxyzine HCl (Atarax) 25 mg PRN Q2HR PRN PO ANXIETY / AGITATION Last administered on 06/21/18 18:40; Start 06/18/18 at 23:00; Stop 06/21/18 at 20:10; Status DC Carbamide Peroxide (Debrox) 5 drop BID AU Last administered on 06/24/18 11:00; Start 06/19/18 at 21:00; Stop 06/24/18 at 20:59; Status DC Mirtazapine (Remeron) 7.5 mg QHS PO Last administered on 06/22/18 19:17; Start 06/19/18 at 21:00; Stop 06/23/18 at 18:12; Status DC Sertraline HCl (Zoloft) 50 mg DAILY PO Last administered on 06/24/18at 10:56; Start 06/20/18 at 09:00; Stop 06/24/18 at 18:42; Status DC Quetiapine Fumarate (SEROquel) 12.5 mg 0900,1700 PO Last administered on at 16:23; Start 06/19/18 at 17:00; Stop 06/22/18 at 16:55; Status DC Levothyroxine Sodium (Synthroid) 88 mcg DAILY06 PO Last administered on at 04:54; Start 06/20/18 at 06:00 Quetiapine Fumarate (SEROquel) 12.5 mg BID92 PO ; Start 06/23/18 at 09:00; Stop 06/23/18 at 09:00; Status DC Quetiapine Fumarate (SEROquel) 25 mg DAILY@1900 PO ; Start 06/22/18 at 19:00; Stop 06/22/18 at 19:00; Status DC Quetiapine Fumarate (SEROquel) 12.5 mg BID@0900,1500 PO Last administered on 06/24/18at 16:33; Start 06/23/18 at 09:00; Stop 06/24/18 at 18:46; Status DC Quetiapine Fumarate (SEROquel) 25 mg STK-MED ONCE .ROUTE ; Start 06/22/18 at 17: 12; Stop 06/22/18 at 17:14; Status DC Quetiapine Fumarate (SEROquel) 12.5 mg DAILY@1900 PO Last administered on at 18:16; Start 06/22/18 at 19:00; Stop 06/24/18 at 18:46; Status DC Rivastigmine Tartrate (Exelon) 1.5 mg DAILY PO Last administered on 06/24/18at 10 :58; Start 06/24/18 at 09:00; Stop 06/24/18 at 14:14; Status DC Rivastigmine Tartrate (Exelon) 3 mg HS PO ; Start 06/23/18 at 21:00; Stop at 21:00; Status DC Rivastigmine Tartrate (Exelon) 3 mg BIDWMEALS PO Last administered on 06/24/18at 10:54; Start 06/23/18 at 17:00; Stop 06/24/18 at 14:14; Status DC Rivastigmine Tartrate (Exelon) 3 mg HS PO ; Start 06/27/18 at 09:00; Stop at 09:00; Status DC Nystatin (Nystop) 1 alan BID TP Last administered on 07/14/18at 20:58; Start 06/23 at 21:00; Stop 07/14/18 at 21:27; Status DC Mirtazapine (Remeron) 15 mg QHS PO Last administered on 07/08/18at 21:01; Start 06/23/18 at 21:00; Stop 07/09/18 at 17:52; Status DC Nystatin (Nystop) 15 alan STK-MED ONCE TP Last administered on 06/23/18at 19:15; Start 06/23/18 at 19:15; Stop 06/23/18 at 19:17; Status DC Rivastigmine Tartrate (Exelon) 3 mg BID PO Last administered on 07/31/18at 19:21 ; Start 06/24/18 at 21:00 Fluvoxamine Maleate (Luvox) 25 mg QHS PO Last administered on 06/25/18at 19:22; Start 06/24/18 at 21:00; Stop 06/26/18 at 19:00; Status DC Fluvoxamine Maleate (Luvox) 50 mg QHS PO Last administered on 06/30/18at 19:36; Start 06/26/18 at 21:00; Stop 07/01/18 at 20:00; Status DC Quetiapine Fumarate (SEROquel) 25 mg DAILY@1900 PO Last administered on at 18:48; Start 06/24/18 at 19:00; Stop 07/27/18 at 18:08; Status DC Quetiapine Fumarate (SEROquel) 25 mg BID@0900,1500 PO Last administered on 07/26at 14:46; Start 06/25/18 at 09:00; Stop 07/26/18 at 23:47; Status DC Bisacodyl (Dulcolax Supp) 10 mg PRN DAILY PRN [place] Last administered on 06/27/18 11:54; Start 06/27/18 at 10:30 Fluvoxamine Maleate (Luvox) 75 mg QHS PO Last administered on 07/13/18 19:16; Start 07/01/18 at 21:00; Stop 07/13/18 at 19:43; Status DC Divalproex Sodium (Depakote Sprinkles) 125 mg BID@0900,1700 PO Last administered on 07/25/18 18:01; Start 06/30/18 at 17:00; Stop 07/25/18 at 19:50; Status DC Mirtazapine (Remeron) 7.5 mg QHS PO Last administered on 07/22/18 20:50; Start 07/09/18 at 21:00; Stop 07/23/18 at 17:07; Status DC Fluvoxamine Maleate (Luvox) 100 mg QHS PO Last administered on 07/31/18 19:21 ; Start 07/13/18 at 21:00 Nystatin (Nystop) 1 alan PRN BID PRN TP skin rash Last administered on 19:58; Start 07/14/18 at 21:30 Mirtazapine (Remeron) 15 mg QHS PO Last administered on 07/31/18 19:21; Start 07/23/18 at 21:00 Trazodone HCl (Desyrel) 50 mg PRN QHS PRN PO INSOMNIA, MAY REPEAT X1 Last administered on 07/28/18 20:04; Start 07/24/18 at 19:00 Divalproex Sodium (Depakote Sprinkles) 125 mg DAILY PO Last administered on 08:49; Start 07/26/18 at 09:00 Divalproex Sodium (Depakote Sprinkles) 250 mg AFTRNOON PO Last administered on 07/28/18 12:10; Start 07/26/18 at 15:00; Stop 07/28/18 at 17:07; Status DC Quetiapine Fumarate (SEROquel) 37.5 mg DAILY@1800 PO Last administered on 16:40; Start 07/27/18 at 18:00 Quetiapine Fumarate (SEROquel) 25 mg DAILY PO Last administered on 07/31/18at 08 :48; Start 07/27/18 at 09:00 Quetiapine Fumarate (SEROquel) 37.5 mg DAILY@1500 PO Last administered on at 14:24; Start 07/27/18 at 15:00 Divalproex Sodium (Depakote Sprinkles) 125 mg NOON PO Last administered on 07/31at 11:36; Start 07/29/18 at 12:00 Divalproex Sodium (Depakote Sprinkles) 250 mg HS PO Last administered on at 19:21; Start 07/28/18 at 21:00 Active Scripts Active Reported Tamsulosin Hcl 0.4 Mg Cap.er.24h 0.4 Mg PO DAILY Levothyroxine Sodium 88 Mcg Tablet 88 Mcg PO DAILYAC Escitalopram Oxalate 20 Mg Tablet 20 Mg PO DAILY Rivastigmine (Rivastigmine Tartrate) 1.5 Mg Capsule 1.5 Mg PO BID Namenda Xr (Memantine Hcl) 28 Mg Cap.spr.24 28 Mg PO DAILY I have reviewed the current psychotropics carefully including drug interactions. Risk benefit ratio favors no change other than as noted in my dictated progress note. Diagnosis: Problems: (1) Mental status alteration (2) Anxiety disorder (3) Dementia in Alzheimer's disease with delusions (4) Dementia in Alzheimer's disease with depression (5) Dementia, vascular, with delusions (6) Dementia, vascular, with depression (7) Impulse control disorder MILAN TAYLOR MD Jul 31, 2018 22:36
[2018-08-01] MEDS: LEVOTHYROXINE 88 MCG TABLET PO SCH (06:03)
[2018-08-01 06:47] VITALS: BP 158/80
[2018-08-01] MEDS: TAMSULOSIN 0.4 MG CAP.ER.24H. PO SCH (07:56)
[2018-08-01] MEDS: RIVASTIGMINE 3 MG CAPSULE. PO SCH ×2 (07:56→20:25)
[2018-08-01] MEDS: MEMANTINE 10 MG TABLET. PO SCH ×2 (07:57→20:24)
[2018-08-01] MEDS: DIVALPROEX 125 MG CAP.SPRINK PO SCH ×3 (07:57→20:25)
[2018-08-01] MEDS: QUEtiapine 25 MG TABLET. PO SCH ×3 (07:57→16:39)
[2018-08-01 15:42] VITALS: BP 131/71
[2018-08-01] MEDS: MIRTAZAPINE 15 MG TABLET PO SCH (20:25)
[2018-08-01] MEDS: traZODone 50 MG TABLET. PO PRN (20:28)
--- NOTE | 2018-08-01 21:50 | PDOC ---
Exam Note: Justin Note: Please also refer to the separate dictated note~for this date of service dictated separately.~Patient seen individually. Discussed the patient with Nursing staff reviewed the chart.~Reviewed interim history and current functioning. Reviewed vital signs,~Labs/ Radiology~and current medications noted below. Continue current treatment with the changes noted in the dictated addendum note Assessment: Vital Signs: Vital Signs Date Time Temp Pulse Resp B/P (MAP) Pulse Ox O2 Delivery O2 Flow Rate FiO2 08/01/18 15:42 97.6 80 20 131/71 (91) 97 07/31/18 16:45 Room Air I&O Intake and Output 08/01/18 07:00 Intake Total 1085 ml Balance 1085 ml Intake Oral 1085 ml Current Medications: Meds: Current Medications Lorazepam (Ativan) 2 mg 1X ONCE PO Last administered on 06/17/18 19:54; Start 06/17/18 at 20:15; Stop 06/17/18 at 20:16; Status DC Acetaminophen (Tylenol) 650 mg PRN Q6HRS PRN PO PAIN / TEMP Last administered on 07/08/18 11:59; Start 06/17/18 at 21:30 Multi-Ingredient Ointment (Analgesic [place]) 1 alan PRN QID PRN TP MUSCLE PAIN Last administered on 07/28/18 17:58; Start 06/17/18 at 21:30 Al Hydroxide/Mg Hydroxide (Mylanta Plus Xs) 15 ml PRN AFTMEALHC PRN PO DYSPEPSIA Last administered on 07/09/18 17:03; Start 06/17/18 at 21:30 Magnesium Hydroxide (Milk Of Magnesia) 2,400 mg PRN QHS PRN PO CONSTIPATION Last administered on 07/27/18 21:20; Start 06/17/18 at 21:30 Trazodone HCl (Desyrel) 25 mg PRN QHS PRN PO INSOMNIA Last administered on 23:21; Start 06/17/18 at 21:30; Stop 07/24/18 at 19:00; Status DC Olanzapine (ZyPREXA ZYDIS) 2.5 mg PRN Q2HR PRN PO PSYCHOSIS Last administered on 08/01/18 10:33; Start 06/17/18 at 21:30 Citalopram Hydrobromide (CeleXA) 40 mg DAILY PO Last administered on 06/19/18 08:09; Start 06/18/18 at 09:00; Stop 06/19/18 at 16:58; Status DC Memantine (Namenda) 10 mg BID PO Last administered on 08/01/18 20:24; Start at 09:00 Rivastigmine Tartrate (Exelon) 1.5 mg BIDWMEALS PO Last administered on 07:47; Start 06/18/18 at 08:00; Stop 06/23/18 at 16:38; Status DC Levothyroxine Sodium (Synthroid) 88 mcg DAILYAC PO Last administered on 08:11; Start 06/18/18 at 07:30; Stop 06/19/18 at 17:40; Status DC Tamsulosin HCl (Flomax) 0.4 mg DAILY PO Last administered on 08/01/18 07:56; Start 06/18/18 at 09:00 Hydroxyzine HCl (Atarax) 25 mg PRN Q2HR PRN PO ANXIETY / AGITATION Last administered on 06/21/18 18:40; Start 06/18/18 at 23:00; Stop 06/21/18 at 20:10; Status DC Carbamide Peroxide (Debrox) 5 drop BID AU Last administered on 06/24/18 11:00; Start 06/19/18 at 21:00; Stop 06/24/18 at 20:59; Status DC Mirtazapine (Remeron) 7.5 mg QHS PO Last administered on 06/22/18 19:17; Start 06/19/18 at 21:00; Stop 06/23/18 at 18:12; Status DC Sertraline HCl (Zoloft) 50 mg DAILY PO Last administered on 06/24/18 10:56; Start 06/20/18 at 09:00; Stop 06/24/18 at 18:42; Status DC Quetiapine Fumarate (SEROquel) 12.5 mg 0900,1700 PO Last administered on 16:23; Start 06/19/18 at 17:00; Stop 06/22/18 at 16:55; Status DC Levothyroxine Sodium (Synthroid) 88 mcg DAILY06 PO Last administered on at 06:03; Start 06/20/18 at 06:00 Quetiapine Fumarate (SEROquel) 12.5 mg BID92 PO ; Start 06/23/18 at 09:00; Stop 06/23/18 at 09:00; Status DC Quetiapine Fumarate (SEROquel) 25 mg DAILY@1900 PO ; Start 06/22/18 at 19:00; Stop 06/22/18 at 19:00; Status DC Quetiapine Fumarate (SEROquel) 12.5 mg BID@0900,1500 PO Last administered on 06/24/18at 16:33; Start 06/23/18 at 09:00; Stop 06/24/18 at 18:46; Status DC Quetiapine Fumarate (SEROquel) 25 mg STK-MED ONCE .ROUTE ; Start 06/22/18 at 17: 12; Stop 06/22/18 at 17:14; Status DC Quetiapine Fumarate (SEROquel) 12.5 mg DAILY@1900 PO Last administered on at 18:16; Start 06/22/18 at 19:00; Stop 06/24/18 at 18:46; Status DC Rivastigmine Tartrate (Exelon) 1.5 mg DAILY PO Last administered on 06/24/18at 10 :58; Start 06/24/18 at 09:00; Stop 06/24/18 at 14:14; Status DC Rivastigmine Tartrate (Exelon) 3 mg HS PO ; Start 06/23/18 at 21:00; Stop at 21:00; Status DC Rivastigmine Tartrate (Exelon) 3 mg BIDWMEALS PO Last administered on 06/24/18at 10:54; Start 06/23/18 at 17:00; Stop 06/24/18 at 14:14; Status DC Rivastigmine Tartrate (Exelon) 3 mg HS PO ; Start 06/27/18 at 09:00; Stop at 09:00; Status DC Nystatin (Nystop) 1 alan BID TP Last administered on 07/14/18at 20:58; Start 06/23 at 21:00; Stop 07/14/18 at 21:27; Status DC Mirtazapine (Remeron) 15 mg QHS PO Last administered on 07/08/18at 21:01; Start 06/23/18 at 21:00; Stop 07/09/18 at 17:52; Status DC Nystatin (Nystop) 15 alan STK-MED ONCE TP Last administered on 06/23/18at 19:15; Start 06/23/18 at 19:15; Stop 06/23/18 at 19:17; Status DC Rivastigmine Tartrate (Exelon) 3 mg BID PO Last administered on 08/01/18at 20:25 ; Start 06/24/18 at 21:00 Fluvoxamine Maleate (Luvox) 25 mg QHS PO Last administered on 06/25/18at 19:22; Start 06/24/18 at 21:00; Stop 06/26/18 at 19:00; Status DC Fluvoxamine Maleate (Luvox) 50 mg QHS PO Last administered on 06/30/18at 19:36; Start 06/26/18 at 21:00; Stop 07/01/18 at 20:00; Status DC Quetiapine Fumarate (SEROquel) 25 mg DAILY@1900 PO Last administered on at 18:48; Start 06/24/18 at 19:00; Stop 07/27/18 at 18:08; Status DC Quetiapine Fumarate (SEROquel) 25 mg BID@0900,1500 PO Last administered on 07/26at 14:46; Start 06/25/18 at 09:00; Stop 07/26/18 at 23:47; Status DC Bisacodyl (Dulcolax Supp) [address] CONSTIPATION Last administered on 06/27/18at 11:54; Start 06/27/18 at 10:30 Fluvoxamine Maleate (Luvox) 75 mg QHS PO Last administered on 07/13/18at 19:16; Start 07/01/18 at 21:00; Stop 07/13/18 at 19:43; Status DC Divalproex Sodium (Depakote Sprinkles) 125 mg BID@0900,1700 PO Last administered on 07/25/18at 18:01; Start 06/30/18 at 17:00; Stop 07/25/18 at 19:50; Status DC Mirtazapine (Remeron) 7.5 mg QHS PO Last administered on 07/22/18 20:50; Start 07/09/18 at 21:00; Stop 07/23/18 at 17:07; Status DC Fluvoxamine Maleate (Luvox) 100 mg QHS PO Last administered on 08/01/18 20:25 ; Start 07/13/18 at 21:00 Nystatin (Nystop) 1 alan PRN BID PRN TP skin rash Last administered on 19:58; Start 07/14/18 at 21:30 Mirtazapine (Remeron) 15 mg QHS PO Last administered on 08/01/18 20:25; Start 07/23/18 at 21:00 Trazodone HCl (Desyrel) 50 mg PRN QHS PRN PO INSOMNIA, MAY REPEAT X1 Last administered on 08/01/18 20:28; Start 07/24/18 at 19:00 Divalproex Sodium (Depakote Sprinkles) 125 mg DAILY PO Last administered on 07:57; Start 07/26/18 at 09:00 Divalproex Sodium (Depakote Sprinkles) 250 mg AFTRNOON PO Last administered on 07/28/18 12:10; Start 07/26/18 at 15:00; Stop 07/28/18 at 17:07; Status DC Quetiapine Fumarate (SEROquel) 37.5 mg DAILY@1800 PO Last administered on 16:39; Start 07/27/18 at 18:00 Quetiapine Fumarate (SEROquel) 25 mg DAILY PO Last administered on 08/01/18 07 :57; Start 07/27/18 at 09:00 Quetiapine Fumarate (SEROquel) 37.5 mg DAILY@1500 PO Last administered on 15:13; Start 07/27/18 at 15:00 Divalproex Sodium (Depakote Sprinkles) 125 mg NOON PO Last administered on 08/01 11:40; Start 07/29/18 at 12:00 Divalproex Sodium (Depakote Sprinkles) 250 mg HS PO Last administered on at 20:25; Start 07/28/18 at 21:00 Active Scripts Active Reported Tamsulosin Hcl 0.4 Mg Cap.er.24h 0.4 Mg PO DAILY Levothyroxine Sodium 88 Mcg Tablet 88 Mcg PO DAILYAC Escitalopram Oxalate 20 Mg Tablet 20 Mg PO DAILY Rivastigmine (Rivastigmine Tartrate) 1.5 Mg Capsule 1.5 Mg PO BID Namenda Xr (Memantine Hcl) 28 Mg Cap.spr.24 28 Mg PO DAILY I have reviewed the current psychotropics carefully including drug interactions. Risk benefit ratio favors no change other than as noted in my dictated progress note. Diagnosis: Problems: (1) Mental status alteration (2) Anxiety disorder (3) Dementia in Alzheimer's disease with delusions (4) Dementia in Alzheimer's disease with depression (5) Dementia, vascular, with delusions (6) Dementia, vascular, with depression (7) Impulse control disorder MILAN TAYLOR MD Aug 01, 2018 21:50
[2018-08-02 05:52] VITALS: BP 154/89
[2018-08-02] MEDS: LEVOTHYROXINE 88 MCG TABLET PO SCH (05:58)
[2018-08-02] MEDS: RIVASTIGMINE 3 MG CAPSULE. PO SCH ×2 (10:25→19:42)
[2018-08-02] MEDS: QUEtiapine 25 MG TABLET. PO SCH ×3 (10:25→17:15)
[2018-08-02] MEDS: DIVALPROEX 125 MG CAP.SPRINK PO SCH ×3 (10:25→19:42)
[2018-08-02] MEDS: TAMSULOSIN 0.4 MG CAP.ER.24H. PO SCH (10:25)
[2018-08-02] MEDS: MEMANTINE 10 MG TABLET. PO SCH ×2 (10:25→19:43)
[2018-08-02 16:11] VITALS: BP 101/62
[2018-08-02] MEDS: MAGNESIUM HYDROXIDE 2,400 MG/30 ML ORAL.SUSP. PO PRN (17:16)
[2018-08-02] MEDS: MIRTAZAPINE 15 MG TABLET PO SCH (19:43)
[2018-08-02] MEDS: traZODone 50 MG TABLET. PO PRN (19:44)
--- NOTE | 2018-08-02 21:48 | PN ---
DATE: 07/31/2018 PSYCHIATRIC PROGRESS NOTE This late entry 07/31/2018 covers elements not covered in my initial note. SUBJECTIVE: I met with the patient in the evening. The patient slept 6-3/4 hours previous night. Overall, the patient is doing better, remains confused. Valproic acid level is 19, subtherapeutic, but despite this clinically adequate. REVIEW OF SYSTEMS: No CV, , pulmonary, eye, ENT system symptoms on review. Reliability poor. MENTAL STATUS EXAM: Oriented to himself. Insight, judgment, recent and remote memory, attention, concentration, fund of knowledge poor, consistent with his diagnosis mentioned in my initial note. PLAN: No change from initial note. MAN Connie TAYLOR MD DR: NATAN/alfredo JOB#: [id number] / [id number]
--- NOTE | 2018-08-02 21:50 | PN ---
DATE: 08/01/2018 PSYCHIATRIC PROGRESS NOTE This late entry 08/01/2018 covers elements not covered in my initial note. SUBJECTIVE: I met with the patient in the evening. The patient slept 7 hours previous night. Remains quite confused, anxious, agitated at times, will receive Zyprexa x 1. REVIEW OF SYSTEMS: No CV, , pulmonary, eye, ENT system symptoms on review. Reliability poor. MENTAL STATUS EXAM: Oriented to himself. Insight, judgment, recent and remote memory, attention, concentration, fund of knowledge poor, consistent with his diagnosis mentioned in my initial note. PLAN: No change from initial note. MAN Connie TAYLOR MD DR: NATAN/alfredo JOB#: [id number] / [id number]
--- NOTE | 2018-08-02 22:35 | PDOC ---
Exam Note: Justin Note: Please also refer to the separate dictated note~for this date of service dictated separately.~Patient seen individually. Discussed the patient with Nursing staff reviewed the chart.~Reviewed interim history and current functioning. Reviewed vital signs,~Labs/ Radiology~and current medications noted below. Continue current treatment with the changes noted in the dictated addendum note Assessment: Vital Signs: Vital Signs Date Time Temp Pulse Resp B/P (MAP) Pulse Ox O2 Delivery O2 Flow Rate FiO2 08/02/18 16:11 98.4 74 18 101/62 (75) 96 07/31/18 16:45 Room Air I&O Intake and Output 08/02/18 07:00 Intake Total 1350 ml Balance 1350 ml Intake Oral 1350 ml Current Medications: Meds: Current Medications Lorazepam (Ativan) 2 mg 1X ONCE PO Last administered on 06/17/18 19:54; Start 06/17/18 at 20:15; Stop 06/17/18 at 20:16; Status DC Acetaminophen (Tylenol) 650 mg PRN Q6HRS PRN PO PAIN / TEMP Last administered on 07/08/18 11:59; Start 06/17/18 at 21:30 Multi-Ingredient Ointment (Analgesic [place]) 1 alan PRN QID PRN TP MUSCLE PAIN Last administered on 07/28/18 17:58; Start 06/17/18 at 21:30 Al Hydroxide/Mg Hydroxide (Mylanta Plus Xs) 15 ml PRN AFTMEALHC PRN PO DYSPEPSIA Last administered on 07/09/18 17:03; Start 06/17/18 at 21:30 Magnesium Hydroxide (Milk Of Magnesia) 2,400 mg PRN QHS PRN PO CONSTIPATION Last administered on 08/02/18 17:16; Start 06/17/18 at 21:30 Trazodone HCl (Desyrel) 25 mg PRN QHS PRN PO INSOMNIA Last administered on 23:21; Start 06/17/18 at 21:30; Stop 07/24/18 at 19:00; Status DC Olanzapine (ZyPREXA ZYDIS) 2.5 mg PRN Q2HR PRN PO PSYCHOSIS Last administered on 08/01/18 10:33; Start 06/17/18 at 21:30 Citalopram Hydrobromide (CeleXA) 40 mg DAILY PO Last administered on 06/19/18 08:09; Start 06/18/18 at 09:00; Stop 06/19/18 at 16:58; Status DC Memantine (Namenda) 10 mg BID PO Last administered on 08/02/18 19:43; Start at 09:00 Rivastigmine Tartrate (Exelon) 1.5 mg BIDWMEALS PO Last administered on 07:47; Start 06/18/18 at 08:00; Stop 06/23/18 at 16:38; Status DC Levothyroxine Sodium (Synthroid) 88 mcg DAILYAC PO Last administered on 08:11; Start 06/18/18 at 07:30; Stop 06/19/18 at 17:40; Status DC Tamsulosin HCl (Flomax) 0.4 mg DAILY PO Last administered on 08/02/18at 10:25; Start 06/18/18 at 09:00 Hydroxyzine HCl (Atarax) 25 mg PRN Q2HR PRN PO ANXIETY / AGITATION Last administered on 06/21/18 18:40; Start 06/18/18 at 23:00; Stop 06/21/18 at 20:10; Status DC Carbamide Peroxide (Debrox) 5 drop BID AU Last administered on 06/24/18 11:00; Start 06/19/18 at 21:00; Stop 06/24/18 at 20:59; Status DC Mirtazapine (Remeron) 7.5 mg QHS PO Last administered on 06/22/18 19:17; Start 06/19/18 at 21:00; Stop 06/23/18 at 18:12; Status DC Sertraline HCl (Zoloft) 50 mg DAILY PO Last administered on 06/24/18 10:56; Start 06/20/18 at 09:00; Stop 06/24/18 at 18:42; Status DC Quetiapine Fumarate (SEROquel) 12.5 mg 0900,1700 PO Last administered on 16:23; Start 06/19/18 at 17:00; Stop 06/22/18 at 16:55; Status DC Levothyroxine Sodium (Synthroid) 88 mcg DAILY06 PO Last administered on at 05:58; Start 06/20/18 at 06:00 Quetiapine Fumarate (SEROquel) 12.5 mg BID92 PO ; Start 06/23/18 at 09:00; Stop 06/23/18 at 09:00; Status DC Quetiapine Fumarate (SEROquel) 25 mg DAILY@1900 PO ; Start 06/22/18 at 19:00; Stop 06/22/18 at 19:00; Status DC Quetiapine Fumarate (SEROquel) 12.5 mg BID@0900,1500 PO Last administered on 06/24/18at 16:33; Start 06/23/18 at 09:00; Stop 06/24/18 at 18:46; Status DC Quetiapine Fumarate (SEROquel) 25 mg STK-MED ONCE .ROUTE ; Start 06/22/18 at 17: 12; Stop 06/22/18 at 17:14; Status DC Quetiapine Fumarate (SEROquel) 12.5 mg DAILY@1900 PO Last administered on at 18:16; Start 06/22/18 at 19:00; Stop 06/24/18 at 18:46; Status DC Rivastigmine Tartrate (Exelon) 1.5 mg DAILY PO Last administered on 06/24/18at 10 :58; Start 06/24/18 at 09:00; Stop 06/24/18 at 14:14; Status DC Rivastigmine Tartrate (Exelon) 3 mg HS PO ; Start 06/23/18 at 21:00; Stop at 21:00; Status DC Rivastigmine Tartrate (Exelon) 3 mg BIDWMEALS PO Last administered on 06/24/18at 10:54; Start 06/23/18 at 17:00; Stop 06/24/18 at 14:14; Status DC Rivastigmine Tartrate (Exelon) 3 mg HS PO ; Start 06/27/18 at 09:00; Stop at 09:00; Status DC Nystatin (Nystop) 1 alan BID TP Last administered on 07/14/18at 20:58; Start 06/23 at 21:00; Stop 07/14/18 at 21:27; Status DC Mirtazapine (Remeron) 15 mg QHS PO Last administered on 07/08/18at 21:01; Start 06/23/18 at 21:00; Stop 07/09/18 at 17:52; Status DC Nystatin (Nystop) 15 alan STK-MED ONCE TP Last administered on 06/23/18at 19:15; Start 06/23/18 at 19:15; Stop 06/23/18 at 19:17; Status DC Rivastigmine Tartrate (Exelon) 3 mg BID PO Last administered on 08/02/18at 19:42 ; Start 06/24/18 at 21:00 Fluvoxamine Maleate (Luvox) 25 mg QHS PO Last administered on 06/25/18at 19:22; Start 06/24/18 at 21:00; Stop 06/26/18 at 19:00; Status DC Fluvoxamine Maleate (Luvox) 50 mg QHS PO Last administered on 06/30/18at 19:36; Start 06/26/18 at 21:00; Stop 07/01/18 at 20:00; Status DC Quetiapine Fumarate (SEROquel) 25 mg DAILY@1900 PO Last administered on at 18:48; Start 06/24/18 at 19:00; Stop 07/27/18 at 18:08; Status DC Quetiapine Fumarate (SEROquel) 25 mg BID@0900,1500 PO Last administered on 07/26at 14:46; Start 06/25/18 at 09:00; Stop 07/26/18 at 23:47; Status DC Bisacodyl (Dulcolax Supp) 10 mg PRN DAILY PRN [place] CONSTIPATION Last administered on 06/27/18at 11:54; Start 06/27/18 at 10:30 Fluvoxamine Maleate (Luvox) 75 mg QHS PO Last administered on 07/13/18at 19:16; Start 07/01/18 at 21:00; Stop 07/13/18 at 19:43; Status DC Divalproex Sodium (Depakote Sprinkles) 125 mg BID@0900,1700 PO Last administered on 07/25/18at 18:01; Start 06/30/18 at 17:00; Stop 07/25/18 at 19:50; Status DC Mirtazapine (Remeron) 7.5 mg QHS PO Last administered on 07/22/18at 20:50; Start 07/09/18 at 21:00; Stop 07/23/18 at 17:07; Status DC Fluvoxamine Maleate (Luvox) 100 mg QHS PO Last administered on 08/02/18 19:43 ; Start 07/13/18 at 21:00 Nystatin (Nystop) 1 alan PRN BID PRN TP skin rash Last administered on 19:58; Start 07/14/18 at 21:30 Mirtazapine (Remeron) 15 mg QHS PO Last administered on 08/02/18 19:43; Start 07/23/18 at 21:00 Trazodone HCl (Desyrel) 50 mg PRN QHS PRN PO INSOMNIA, MAY REPEAT X1 Last administered on 08/02/18 19:44; Start 07/24/18 at 19:00 Divalproex Sodium (Depakote Sprinkles) 125 mg DAILY PO Last administered on 10:25; Start 07/26/18 at 09:00 Divalproex Sodium (Depakote Sprinkles) 250 mg AFTRNOON PO Last administered on 07/28/18 12:10; Start 07/26/18 at 15:00; Stop 07/28/18 at 17:07; Status DC Quetiapine Fumarate (SEROquel) 37.5 mg DAILY@1800 PO Last administered on 17:15; Start 07/27/18 at 18:00 Quetiapine Fumarate (SEROquel) 25 mg DAILY PO Last administered on 08/02/18 10 :25; Start 07/27/18 at 09:00 Quetiapine Fumarate (SEROquel) 37.5 mg DAILY@1500 PO Last administered on 16:36; Start 07/27/18 at 15:00 Divalproex Sodium (Depakote Sprinkles) 125 mg NOON PO Last administered on 08/02 14:35; Start 07/29/18 at 12:00 Divalproex Sodium (Depakote Sprinkles) 250 mg HS PO Last administered on at 19:42; Start 07/28/18 at 21:00 Active Scripts Active Reported Tamsulosin Hcl 0.4 Mg Cap.er.24h 0.4 Mg PO DAILY Levothyroxine Sodium 88 Mcg Tablet 88 Mcg PO DAILYAC Escitalopram Oxalate 20 Mg Tablet 20 Mg PO DAILY Rivastigmine (Rivastigmine Tartrate) 1.5 Mg Capsule 1.5 Mg PO BID Namenda Xr (Memantine Hcl) 28 Mg Cap.spr.24 28 Mg PO DAILY I have reviewed the current psychotropics carefully including drug interactions. Risk benefit ratio favors no change other than as noted in my dictated progress note. Diagnosis: Problems: (1) Mental status alteration (2) Anxiety disorder (3) Dementia in Alzheimer's disease with delusions (4) Dementia in Alzheimer's disease with depression (5) Dementia, vascular, with delusions (6) Dementia, vascular, with depression (7) Impulse control disorder MILAN TAYLOR MD Aug 02, 2018 22:35
[2018-08-03] MEDS: LEVOTHYROXINE 88 MCG TABLET PO SCH (06:04)
[2018-08-03 06:13] VITALS: BP 135/71
[2018-08-03] MEDS: TAMSULOSIN 0.4 MG CAP.ER.24H. PO SCH (07:33)
[2018-08-03] MEDS: QUEtiapine 25 MG TABLET. PO SCH ×3 (07:33→16:14)
[2018-08-03] MEDS: RIVASTIGMINE 3 MG CAPSULE. PO SCH ×2 (07:33→19:36)
[2018-08-03] MEDS: DIVALPROEX 125 MG CAP.SPRINK PO SCH ×3 (07:33→19:36)
[2018-08-03] MEDS: MEMANTINE 10 MG TABLET. PO SCH ×2 (07:33→19:36)
[2018-08-03 16:19] VITALS: BP 126/64
[2018-08-03] MEDS: MIRTAZAPINE 15 MG TABLET PO SCH (19:36)
[2018-08-03] MEDS: traZODone 50 MG TABLET. PO PRN (19:37)
--- NOTE | 2018-08-03 22:23 | PDOC ---
Exam Note: Justin Note: Please also refer to the separate dictated note~for this date of service dictated separately.~Patient seen individually. Discussed the patient with Nursing staff reviewed the chart.~Reviewed interim history and current functioning. Reviewed vital signs,~Labs/ Radiology~and current medications noted below. Continue current treatment with the changes noted in the dictated addendum note Assessment: Vital Signs: Vital Signs Date Time Temp Pulse Resp B/P (MAP) Pulse Ox O2 Delivery O2 Flow Rate FiO2 08/03/18 16:19 98.6 78 16 126/64 (84) 96 07/31/18 16:45 Room Air I&O Intake and Output 08/03/18 07:00 Intake Total 840 ml Balance 840 ml Intake Oral 840 ml # Bowel Movements 1 Current Medications: Meds: Current Medications Lorazepam (Ativan) 2 mg 1X ONCE PO Last administered on 06/17/18 19:54; Start 06/17/18 at 20:15; Stop 06/17/18 at 20:16; Status DC Acetaminophen (Tylenol) 650 mg PRN Q6HRS PRN PO PAIN / TEMP Last administered on 07/08/18 11:59; Start 06/17/18 at 21:30 Multi-Ingredient Ointment (Analgesic [place]) 1 alan PRN QID PRN TP MUSCLE PAIN Last administered on 07/28/18 17:58; Start 06/17/18 at 21:30 Al Hydroxide/Mg Hydroxide (Mylanta Plus Xs) 15 ml PRN AFTMEALHC PRN PO DYSPEPSIA Last administered on 07/09/18 17:03; Start 06/17/18 at 21:30 Magnesium Hydroxide (Milk Of Magnesia) 2,400 mg PRN QHS PRN PO CONSTIPATION Last administered on 08/02/18 17:16; Start 06/17/18 at 21:30 Trazodone HCl (Desyrel) 25 mg PRN QHS PRN PO INSOMNIA Last administered on 23:21; Start 06/17/18 at 21:30; Stop 07/24/18 at 19:00; Status DC Olanzapine (ZyPREXA ZYDIS) 2.5 mg PRN Q2HR PRN PO PSYCHOSIS Last administered on 08/03/18 21:10; Start 06/17/18 at 21:30 Citalopram Hydrobromide (CeleXA) 40 mg DAILY PO Last administered on 06/19/18 08:09; Start 06/18/18 at 09:00; Stop 06/19/18 at 16:58; Status DC Memantine (Namenda) 10 mg BID PO Last administered on 08/03/18at 19:36; Start at 09:00 Rivastigmine Tartrate (Exelon) 1.5 mg BIDWMEALS PO Last administered on 07:47; Start 06/18/18 at 08:00; Stop 06/23/18 at 16:38; Status DC Levothyroxine Sodium (Synthroid) 88 mcg DAILYAC PO Last administered on 08:11; Start 06/18/18 at 07:30; Stop 06/19/18 at 17:40; Status DC Tamsulosin HCl (Flomax) 0.4 mg DAILY PO Last administered on 08/03/18at 07:33; Start 06/18/18 at 09:00 Hydroxyzine HCl (Atarax) 25 mg PRN Q2HR PRN PO ANXIETY / AGITATION Last administered on 06/21/18at 18:40; Start 06/18/18 at 23:00; Stop 06/21/18 at 20:10; Status DC Carbamide Peroxide (Debrox) 5 drop BID AU Last administered on 06/24/18at 11:00; Start 06/19/18 at 21:00; Stop 06/24/18 at 20:59; Status DC Mirtazapine (Remeron) 7.5 mg QHS PO Last administered on 06/22/18 19:17; Start 06/19/18 at 21:00; Stop 06/23/18 at 18:12; Status DC Sertraline HCl (Zoloft) 50 mg DAILY PO Last administered on 06/24/18at 10:56; Start 06/20/18 at 09:00; Stop 06/24/18 at 18:42; Status DC Quetiapine Fumarate (SEROquel) 12.5 mg 0900,1700 PO Last administered on at 16:23; Start 06/19/18 at 17:00; Stop 06/22/18 at 16:55; Status DC Levothyroxine Sodium (Synthroid) 88 mcg DAILY06 PO Last administered on at 06:04; Start 06/20/18 at 06:00 Quetiapine Fumarate (SEROquel) 12.5 mg BID92 PO ; Start 06/23/18 at 09:00; Stop 06/23/18 at 09:00; Status DC Quetiapine Fumarate (SEROquel) 25 mg DAILY@1900 PO ; Start 06/22/18 at 19:00; Stop 06/22/18 at 19:00; Status DC Quetiapine Fumarate (SEROquel) 12.5 mg BID@0900,1500 PO Last administered on 06/24/18at 16:33; Start 06/23/18 at 09:00; Stop 06/24/18 at 18:46; Status DC Quetiapine Fumarate (SEROquel) 25 mg STK-MED ONCE .ROUTE ; Start 06/22/18 at 17: 12; Stop 06/22/18 at 17:14; Status DC Quetiapine Fumarate (SEROquel) 12.5 mg DAILY@1900 PO Last administered on at 18:16; Start 06/22/18 at 19:00; Stop 06/24/18 at 18:46; Status DC Rivastigmine Tartrate (Exelon) 1.5 mg DAILY PO Last administered on 06/24/18at 10 :58; Start 06/24/18 at 09:00; Stop 06/24/18 at 14:14; Status DC Rivastigmine Tartrate (Exelon) 3 mg HS PO ; Start 06/23/18 at 21:00; Stop at 21:00; Status DC Rivastigmine Tartrate (Exelon) 3 mg BIDWMEALS PO Last administered on 06/24/18at 10:54; Start 06/23/18 at 17:00; Stop 06/24/18 at 14:14; Status DC Rivastigmine Tartrate (Exelon) 3 mg HS PO ; Start 06/27/18 at 09:00; Stop at 09:00; Status DC Nystatin (Nystop) 1 alan BID TP Last administered on 07/14/18at 20:58; Start 06/23 at 21:00; Stop 07/14/18 at 21:27; Status DC Mirtazapine (Remeron) 15 mg QHS PO Last administered on 07/08/18at 21:01; Start 06/23/18 at 21:00; Stop 07/09/18 at 17:52; Status DC Nystatin (Nystop) 15 alan STK-MED ONCE TP Last administered on 06/23/18at 19:15; Start 06/23/18 at 19:15; Stop 06/23/18 at 19:17; Status DC Rivastigmine Tartrate (Exelon) 3 mg BID PO Last administered on 08/03/18 19:36 ; Start 06/24/18 at 21:00 Fluvoxamine Maleate (Luvox) 25 mg QHS PO Last administered on 06/25/18at 19:22; Start 06/24/18 at 21:00; Stop 06/26/18 at 19:00; Status DC Fluvoxamine Maleate (Luvox) 50 mg QHS PO Last administered on 06/30/18at 19:36; Start 06/26/18 at 21:00; Stop 07/01/18 at 20:00; Status DC Quetiapine Fumarate (SEROquel) 25 mg DAILY@1900 PO Last administered on at 18:48; Start 06/24/18 at 19:00; Stop 07/27/18 at 18:08; Status DC Quetiapine Fumarate (SEROquel) 25 mg BID@0900,1500 PO Last administered on 07/26at 14:46; Start 06/25/18 at 09:00; Stop 07/26/18 at 23:47; Status DC Bisacodyl (Dulcolax Supp) 10 mg PRN DAILY PRN [place] CONSTIPATION Last administered on 06/27/18at 11:54; Start 06/27/18 at 10:30 Fluvoxamine Maleate (Luvox) 75 mg QHS PO Last administered on 07/13/18 19:16; Start 07/01/18 at 21:00; Stop 07/13/18 at 19:43; Status DC Divalproex Sodium (Depakote Sprinkles) 125 mg BID@0900,1700 PO Last administered on 2/9/19at 18:01; Start 06/30/18 at 17:00; Stop 07/25/18 at 19:50; Status DC Mirtazapine (Remeron) 7.5 mg QHS PO Last administered on 07/22/18at 20:50; Start 07/09/18 at 21:00; Stop 07/23/18 at 17:07; Status DC Fluvoxamine Maleate (Luvox) 100 mg QHS PO Last administered on 08/03/18 19:35 ; Start 07/13/18 at 21:00 Nystatin (Nystop) 1 alan PRN BID PRN TP skin rash Last administered on 19:58; Start 07/14/18 at 21:30 Mirtazapine (Remeron) 15 mg QHS PO Last administered on 08/03/18 19:36; Start 07/23/18 at 21:00 Trazodone HCl (Desyrel) 50 mg PRN QHS PRN PO INSOMNIA, MAY REPEAT X1 Last administered on 08/03/18 19:37; Start 07/24/18 at 19:00 Divalproex Sodium (Depakote Sprinkles) 125 mg DAILY PO Last administered on 07:33; Start 07/26/18 at 09:00 Divalproex Sodium (Depakote Sprinkles) 250 mg AFTRNOON PO Last administered on 07/28/18 12:10; Start 07/26/18 at 15:00; Stop 07/28/18 at 17:07; Status DC Quetiapine Fumarate (SEROquel) 37.5 mg DAILY@1800 PO Last administered on 16:14; Start 07/27/18 at 18:00; Stop 08/03/18 at 19:31; Status DC Quetiapine Fumarate (SEROquel) 25 mg DAILY PO Last administered on 08/03/18 07 :33; Start 07/27/18 at 09:00 Quetiapine Fumarate (SEROquel) 37.5 mg DAILY@1500 PO Last administered on 15:06; Start 07/27/18 at 15:00 Divalproex Sodium (Depakote Sprinkles) 125 mg NOON PO Last administered on 2/18 /19at 11:31; Start 07/29/18 at 12:00 Divalproex Sodium (Depakote Sprinkles) 250 mg HS PO Last administered on at 19:36; Start 07/28/18 at 21:00 Quetiapine Fumarate (SEROquel) 50 mg DAILY@1500 PO ; Start 08/04/18 at 15:00 Active Scripts Active Reported Tamsulosin Hcl 0.4 Mg Cap.er.24h 0.4 Mg PO DAILY Levothyroxine Sodium 88 Mcg Tablet 88 Mcg PO DAILYAC Escitalopram Oxalate 20 Mg Tablet 20 Mg PO DAILY Rivastigmine (Rivastigmine Tartrate) 1.5 Mg Capsule 1.5 Mg PO BID Namenda Xr (Memantine Hcl) 28 Mg Cap.spr.24 28 Mg PO DAILY I have reviewed the current psychotropics carefully including drug interactions. Risk benefit ratio favors no change other than as noted in my dictated progress note. Diagnosis: Problems: (1) Mental status alteration (2) Anxiety disorder (3) Dementia in Alzheimer's disease with delusions (4) Dementia in Alzheimer's disease with depression (5) Dementia, vascular, with delusions (6) Dementia, vascular, with depression (7) Impulse control disorder MILAN TAYLOR MD Aug 03, 2018 22:23
[2018-08-04] MEDS: LEVOTHYROXINE 88 MCG TABLET PO SCH (04:58)
[2018-08-04 05:54] VITALS: BP 132/66
[2018-08-04] MEDS: TAMSULOSIN 0.4 MG CAP.ER.24H. PO SCH (07:42)
[2018-08-04] MEDS: RIVASTIGMINE 3 MG CAPSULE. PO SCH ×2 (07:42→20:14)
[2018-08-04] MEDS: MEMANTINE 10 MG TABLET. PO SCH ×2 (07:42→20:14)
[2018-08-04] MEDS: DIVALPROEX 125 MG CAP.SPRINK PO SCH ×3 (07:43→20:14)
[2018-08-04] MEDS: QUEtiapine 25 MG TABLET. PO SCH ×4 (07:43→17:35)
[2018-08-04] MEDS: QUEtiapine 50 MG TABLET. PO SCH (15:06)
[2018-08-04 16:28] VITALS: BP 103/64
[2018-08-04] MEDS: traZODone 50 MG TABLET. PO PRN (20:14)
[2018-08-04] MEDS: MIRTAZAPINE 15 MG TABLET PO SCH (20:15)
--- NOTE | 2018-08-04 20:41 | PN ---
DATE: 08/02/2018 PSYCHIATRIC PROGRESS NOTE This late entry 08/02/2018 covers elements not covered in my initial note. SUBJECTIVE: I met with the patient in the evening. The patient slept 5-1/2 hours previous night. The patient remains confused, wanders the hallways, oblivious of his surroundings, somewhat intrusive. REVIEW OF SYSTEMS: No CV, , pulmonary, eye, ENT system symptoms on review. Reliability poor. MENTAL STATUS EXAM: Oriented to himself. Insight, judgment, recent and remote memory, attention, concentration, fund of knowledge poor, consistent with his diagnosis mentioned in my initial note. PLAN: No change from initial note. MAN Connie TAYLOR MD DR: NATAN/alfredo JOB#: [id number] / [id number]
--- NOTE | 2018-08-04 20:42 | PN ---
DATE: 08/03/2018 PSYCHIATRIC PROGRESS NOTE This late entry 08/03/2018 covers elements not covered in my initial note. SUBJECTIVE: I met with the patient in the evening. The patient slept 6-1/2 hours previous night. Remains confused, agitated around 5:00 p.m. Received Zyprexa at dinner time. REVIEW OF SYSTEMS: No CV, , pulmonary, eye, ENT system symptoms on review. Reliability poor. MENTAL STATUS EXAM: Oriented to himself. Insight, judgment, recent and remote memory, attention, concentration, fund of knowledge poor, consistent with his diagnosis mentioned in my initial note. PLAN: Increase the 0900 Seroquel from 37.5 mg to 50 mg. Continue rest psychotropics unchanged including Luvox for his OCD symptoms at 100 mg at bedtime. MAN Connie TAYLOR MD DR: NATAN/alfredo JOB#: [id number] / [id number]
--- NOTE | 2018-08-04 22:39 | PDOC ---
Exam Note: Justin Note: Please also refer to the separate dictated note~for this date of service dictated separately.~Patient seen individually. Discussed the patient with Nursing staff reviewed the chart.~Reviewed interim history and current functioning. Reviewed vital signs,~Labs/ Radiology~and current medications noted below. Continue current treatment with the changes noted in the dictated addendum note Assessment: Vital Signs: Vital Signs Date Time Temp Pulse Resp B/P (MAP) Pulse Ox O2 Delivery O2 Flow Rate FiO2 08/04/18 16:28 98.0 64 18 103/64 (77) 94 Room Air I&O Intake and Output 08/04/18 07:00 Intake Total 1200 ml Balance 1200 ml Intake Oral 1200 ml Current Medications: Meds: Current Medications Lorazepam (Ativan) 2 mg 1X ONCE PO Last administered on 06/17/18 19:54; Start 06/17/18 at 20:15; Stop 06/17/18 at 20:16; Status DC Acetaminophen (Tylenol) 650 mg PRN Q6HRS PRN PO PAIN / TEMP Last administered on 07/08/18at 11:59; Start 06/17/18 at 21:30 Multi-Ingredient Ointment (Analgesic [place]) 1 alan PRN QID PRN TP MUSCLE PAIN Last administered on 07/28/18 17:58; Start 06/17/18 at 21:30 Al Hydroxide/Mg Hydroxide (Mylanta Plus Xs) 15 ml PRN AFTMEALHC PRN PO DYSPEPSIA Last administered on 07/09/18at 17:03; Start 06/17/18 at 21:30 Magnesium Hydroxide (Milk Of Magnesia) 2,400 mg PRN QHS PRN PO CONSTIPATION Last administered on 08/02/18at 17:16; Start 06/17/18 at 21:30 Trazodone HCl (Desyrel) 25 mg PRN QHS PRN PO INSOMNIA Last administered on 23:21; Start 06/17/18 at 21:30; Stop 07/24/18 at 19:00; Status DC Olanzapine (ZyPREXA ZYDIS) 2.5 mg PRN Q2HR PRN PO PSYCHOSIS Last administered on 08/03/18at 21:10; Start 06/17/18 at 21:30 Citalopram Hydrobromide (CeleXA) 40 mg DAILY PO Last administered on 06/19/18 08:09; Start 06/18/18 at 09:00; Stop 06/19/18 at 16:58; Status DC Memantine (Namenda) 10 mg BID PO Last administered on 08/04/18 20:14; Start at 09:00 Rivastigmine Tartrate (Exelon) 1.5 mg BIDWMEALS PO Last administered on 07:47; Start 06/18/18 at 08:00; Stop 06/23/18 at 16:38; Status DC Levothyroxine Sodium (Synthroid) 88 mcg DAILYAC PO Last administered on 08:11; Start 06/18/18 at 07:30; Stop 06/19/18 at 17:40; Status DC Tamsulosin HCl (Flomax) 0.4 mg DAILY PO Last administered on 08/04/18 07:42; Start 06/18/18 at 09:00 Hydroxyzine HCl (Atarax) 25 mg PRN Q2HR PRN PO ANXIETY / AGITATION Last administered on 06/21/18 18:40; Start 06/18/18 at 23:00; Stop 06/21/18 at 20:10; Status DC Carbamide Peroxide (Debrox) 5 drop BID AU Last administered on 06/24/18 11:00; Start 06/19/18 at 21:00; Stop 06/24/18 at 20:59; Status DC Mirtazapine (Remeron) 7.5 mg QHS PO Last administered on 06/22/18 19:17; Start 06/19/18 at 21:00; Stop 06/23/18 at 18:12; Status DC Sertraline HCl (Zoloft) 50 mg DAILY PO Last administered on 06/24/18 10:56; Start 06/20/18 at 09:00; Stop 06/24/18 at 18:42; Status DC Quetiapine Fumarate (SEROquel) 12.5 mg 0900,1700 PO Last administered on 16:23; Start 06/19/18 at 17:00; Stop 06/22/18 at 16:55; Status DC Levothyroxine Sodium (Synthroid) 88 mcg DAILY06 PO Last administered on 2/19/ 19at 04:58; Start 06/20/18 at 06:00 Quetiapine Fumarate (SEROquel) 12.5 mg BID92 PO ; Start 06/23/18 at 09:00; Stop 06/23/18 at 09:00; Status DC Quetiapine Fumarate (SEROquel) 25 mg DAILY@1900 PO ; Start 06/22/18 at 19:00; Stop 06/22/18 at 19:00; Status DC Quetiapine Fumarate (SEROquel) 12.5 mg BID@0900,1500 PO Last administered on 06/24/18at 16:33; Start 06/23/18 at 09:00; Stop 06/24/18 at 18:46; Status DC Quetiapine Fumarate (SEROquel) 25 mg STK-MED ONCE .ROUTE ; Start 06/22/18 at 17: 12; Stop 06/22/18 at 17:14; Status DC Quetiapine Fumarate (SEROquel) 12.5 mg DAILY@1900 PO Last administered on at 18:16; Start 06/22/18 at 19:00; Stop 06/24/18 at 18:46; Status DC Rivastigmine Tartrate (Exelon) 1.5 mg DAILY PO Last administered on 06/24/18at 10 :58; Start 06/24/18 at 09:00; Stop 06/24/18 at 14:14; Status DC Rivastigmine Tartrate (Exelon) 3 mg HS PO ; Start 06/23/18 at 21:00; Stop at 21:00; Status DC Rivastigmine Tartrate (Exelon) 3 mg BIDWMEALS PO Last administered on 06/24/18at 10:54; Start 06/23/18 at 17:00; Stop 06/24/18 at 14:14; Status DC Rivastigmine Tartrate (Exelon) 3 mg HS PO ; Start 06/27/18 at 09:00; Stop at 09:00; Status DC Nystatin (Nystop) 1 alan BID TP Last administered on 07/14/18at 20:58; Start 06/23 at 21:00; Stop 07/14/18 at 21:27; Status DC Mirtazapine (Remeron) 15 mg QHS PO Last administered on 07/08/18at 21:01; Start 06/23/18 at 21:00; Stop 07/09/18 at 17:52; Status DC Nystatin (Nystop) 15 alan STK-MED ONCE TP Last administered on 06/23/18at 19:15; Start 06/23/18 at 19:15; Stop 06/23/18 at 19:17; Status DC Rivastigmine Tartrate (Exelon) 3 mg BID PO Last administered on 08/04/18at 20:14 ; Start 06/24/18 at 21:00 Fluvoxamine Maleate (Luvox) 25 mg QHS PO Last administered on 06/25/18at 19:22; Start 06/24/18 at 21:00; Stop 06/26/18 at 19:00; Status DC Fluvoxamine Maleate (Luvox) 50 mg QHS PO Last administered on 06/30/18at 19:36; Start 06/26/18 at 21:00; Stop 07/01/18 at 20:00; Status DC Quetiapine Fumarate (SEROquel) 25 mg DAILY@1900 PO Last administered on at 18:48; Start 06/24/18 at 19:00; Stop 07/27/18 at 18:08; Status DC Quetiapine Fumarate (SEROquel) 25 mg BID@0900,1500 PO Last administered on 07/26at 14:46; Start 06/25/18 at 09:00; Stop 07/26/18 at 23:47; Status DC Bisacodyl (Dulcolax Supp) 10 mg PRN DAILY PRN [place] CONSTIPATION Last administered on 06/27/18at 11:54; Start 06/27/18 at 10:30 Fluvoxamine Maleate (Luvox) 75 mg QHS PO Last administered on 07/13/18at 19:16; Start 07/01/18 at 21:00; Stop 07/13/18 at 19:43; Status DC Divalproex Sodium (Depakote Sprinkles) 125 mg BID@0900,1700 PO Last administered on 07/25/18at 18:01; Start 06/30/18 at 17:00; Stop 07/25/18 at 19:50; Status DC Mirtazapine (Remeron) 7.5 mg QHS PO Last administered on 07/22/18 20:50; Start 07/09/18 at 21:00; Stop 07/23/18 at 17:07; Status DC Fluvoxamine Maleate (Luvox) 100 mg QHS PO Last administered on 08/04/18 20:15 ; Start 07/13/18 at 21:00 Nystatin (Nystop) 1 alan PRN BID PRN TP skin rash Last administered on 19:58; Start 07/14/18 at 21:30 Mirtazapine (Remeron) 15 mg QHS PO Last administered on 08/04/18 20:15; Start 07/23/18 at 21:00 Trazodone HCl (Desyrel) 50 mg PRN QHS PRN PO INSOMNIA, MAY REPEAT X1 Last administered on 08/04/18 20:14; Start 07/24/18 at 19:00 Divalproex Sodium (Depakote Sprinkles) 125 mg DAILY PO Last administered on 07:43; Start 07/26/18 at 09:00 Divalproex Sodium (Depakote Sprinkles) 250 mg AFTRNOON PO Last administered on 07/28/18 12:10; Start 07/26/18 at 15:00; Stop 07/28/18 at 17:07; Status DC Quetiapine Fumarate (SEROquel) 37.5 mg DAILY@1800 PO Last administered on 16:14; Start 07/27/18 at 18:00; Stop 08/03/18 at 19:31; Status DC Quetiapine Fumarate (SEROquel) 25 mg DAILY PO Last administered on 08/04/18 07 :43; Start 07/27/18 at 09:00 Quetiapine Fumarate (SEROquel) 37.5 mg DAILY@1500 PO Last administered on 15:06; Start 07/27/18 at 15:00; Stop 08/04/18 at 15:19; Status DC Divalproex Sodium (Depakote Sprinkles) 125 mg NOON PO Last administered on 08/04 11:48; Start 07/29/18 at 12:00 Divalproex Sodium (Depakote Sprinkles) 250 mg HS PO Last administered on at 20:14; Start 07/28/18 at 21:00 Quetiapine Fumarate (SEROquel) 50 mg DAILY@1500 PO Last administered on at 15:06; Start 08/04/18 at 15:00 Quetiapine Fumarate (SEROquel) 37.5 mg 1800 PO Last administered on 08/04/18at 17:35; Start 08/04/18 at 18:00 Active Scripts Active Reported Tamsulosin Hcl 0.4 Mg Cap.er.24h 0.4 Mg PO DAILY Levothyroxine Sodium 88 Mcg Tablet 88 Mcg PO DAILYAC Escitalopram Oxalate 20 Mg Tablet 20 Mg PO DAILY Rivastigmine (Rivastigmine Tartrate) 1.5 Mg Capsule 1.5 Mg PO BID Namenda Xr (Memantine Hcl) 28 Mg Cap.spr.24 28 Mg PO DAILY I have reviewed the current psychotropics carefully including drug interactions. Risk benefit ratio favors no change other than as noted in my dictated progress note. Diagnosis: Problems: (1) Mental status alteration (2) Anxiety disorder (3) Dementia in Alzheimer's disease with delusions (4) Dementia in Alzheimer's disease with depression (5) Dementia, vascular, with delusions (6) Dementia, vascular, with depression (7) Impulse control disorder MILAN TAYLOR MD Aug 04, 2018 22:39
[2018-08-05 05:46] VITALS: BP 166/82
[2018-08-05] MEDS: LEVOTHYROXINE 88 MCG TABLET PO SCH (06:02)
[2018-08-05] MEDS: MEMANTINE 10 MG TABLET. PO SCH ×2 (07:31→19:28)
[2018-08-05] MEDS: RIVASTIGMINE 3 MG CAPSULE. PO SCH ×2 (07:31→19:28)
[2018-08-05] MEDS: DIVALPROEX 125 MG CAP.SPRINK PO SCH ×3 (07:31→19:28)
[2018-08-05] MEDS: TAMSULOSIN 0.4 MG CAP.ER.24H. PO SCH (07:32)
[2018-08-05] MEDS: QUEtiapine 25 MG TABLET. PO SCH ×2 (07:32→17:01)
[2018-08-05 15:17] VITALS: BP 104/63
[2018-08-05] MEDS: QUEtiapine 50 MG TABLET. PO SCH (15:41)
[2018-08-05] MEDS: MIRTAZAPINE 15 MG TABLET PO SCH (19:28)
--- NOTE | 2018-08-05 21:25 | PN ---
DATE: 08/04/2018 PSYCHIATRIC PROGRESS NOTE This late entry of 08/04/2018, covers elements not covered in my initial note. SUBJECTIVE: I met with the patient in the evening. The patient slept 6-1/2 hours previous night. He remains confused, anxious, restless at times, but redirectable. He has had a p.r.n., but redirects after that. REVIEW OF SYSTEMS: No CV, , pulmonary, eye, ENT system symptoms on review. Reliability poor. MENTAL STATUS EXAM: Oriented to himself. Insight, judgment, recent and remote memory, attention, concentration, fund of knowledge poor, consistent with his diagnosis mentioned in my initial note. PLAN: No change from initial note and reviewed information from social service staff about placement. MAN Connie TAYLOR MD DR: NATAN/alfredo JOB#: [id number] / [id number]
--- NOTE | 2018-08-05 22:17 | PDOC ---
Exam Note: Justin Note: Please also refer to the separate dictated note~for this date of service dictated separately.~Patient seen individually. Discussed the patient with Nursing staff reviewed the chart.~Reviewed interim history and current functioning. Reviewed vital signs,~Labs/ Radiology~and current medications noted below. Continue current treatment with the changes noted in the dictated addendum note Assessment: Vital Signs: Vital Signs Date Time Temp Pulse Resp B/P (MAP) Pulse Ox O2 Delivery O2 Flow Rate FiO2 08/05/18 15:17 97.4 65 17 104/63 (77) 95 08/05/18 05:46 Room Air I&O Intake and Output 08/05/18 07:00 Intake Total 1560 ml Balance 1560 ml Intake Oral 1560 ml Current Medications: Meds: Current Medications Lorazepam (Ativan) 2 mg 1X ONCE PO Last administered on 06/17/18 19:54; Start 06/17/18 at 20:15; Stop 06/17/18 at 20:16; Status DC Acetaminophen (Tylenol) 650 mg PRN Q6HRS PRN PO PAIN / TEMP Last administered on 07/08/18 11:59; Start 06/17/18 at 21:30 Multi-Ingredient Ointment (Analgesic [place]) 1 alan PRN QID PRN TP MUSCLE PAIN Last administered on 07/28/18 17:58; Start 06/17/18 at 21:30 Al Hydroxide/Mg Hydroxide (Mylanta Plus Xs) 15 ml PRN AFTMEALHC PRN PO DYSPEPSIA Last administered on 07/09/18 17:03; Start 06/17/18 at 21:30 Magnesium Hydroxide (Milk Of Magnesia) 2,400 mg PRN QHS PRN PO CONSTIPATION Last administered on 08/02/18 17:16; Start 06/17/18 at 21:30 Trazodone HCl (Desyrel) 25 mg PRN QHS PRN PO INSOMNIA Last administered on 23:21; Start 06/17/18 at 21:30; Stop 07/24/18 at 19:00; Status DC Olanzapine (ZyPREXA ZYDIS) 2.5 mg PRN Q2HR PRN PO PSYCHOSIS Last administered on 08/05/18 16:39; Start 06/17/18 at 21:30 Citalopram Hydrobromide (CeleXA) 40 mg DAILY PO Last administered on 06/19/18 08:09; Start 06/18/18 at 09:00; Stop 06/19/18 at 16:58; Status DC Memantine (Namenda) 10 mg BID PO Last administered on 08/05/18 19:28; Start at 09:00 Rivastigmine Tartrate (Exelon) 1.5 mg BIDWMEALS PO Last administered on 07:47; Start 06/18/18 at 08:00; Stop 06/23/18 at 16:38; Status DC Levothyroxine Sodium (Synthroid) 88 mcg DAILYAC PO Last administered on 08:11; Start 06/18/18 at 07:30; Stop 06/19/18 at 17:40; Status DC Tamsulosin HCl (Flomax) 0.4 mg DAILY PO Last administered on 08/05/18 07:32; Start 06/18/18 at 09:00 Hydroxyzine HCl (Atarax) 25 mg PRN Q2HR PRN PO ANXIETY / AGITATION Last administered on 06/21/18 18:40; Start 06/18/18 at 23:00; Stop 06/21/18 at 20:10; Status DC Carbamide Peroxide (Debrox) 5 drop BID AU Last administered on 06/24/18 11:00; Start 06/19/18 at 21:00; Stop 06/24/18 at 20:59; Status DC Mirtazapine (Remeron) 7.5 mg QHS PO Last administered on 06/22/18 19:17; Start 06/19/18 at 21:00; Stop 06/23/18 at 18:12; Status DC Sertraline HCl (Zoloft) 50 mg DAILY PO Last administered on 06/24/18 10:56; Start 06/20/18 at 09:00; Stop 06/24/18 at 18:42; Status DC Quetiapine Fumarate (SEROquel) 12.5 mg 0900,1700 PO Last administered on 16:23; Start 06/19/18 at 17:00; Stop 06/22/18 at 16:55; Status DC Levothyroxine Sodium (Synthroid) 88 mcg DAILY06 PO Last administered on at 06:02; Start 06/20/18 at 06:00 Quetiapine Fumarate (SEROquel) 12.5 mg BID92 PO ; Start 06/23/18 at 09:00; Stop 06/23/18 at 09:00; Status DC Quetiapine Fumarate (SEROquel) 25 mg DAILY@1900 PO ; Start 06/22/18 at 19:00; Stop 06/22/18 at 19:00; Status DC Quetiapine Fumarate (SEROquel) 12.5 mg BID@0900,1500 PO Last administered on 06/24/18at 16:33; Start 06/23/18 at 09:00; Stop 06/24/18 at 18:46; Status DC Quetiapine Fumarate (SEROquel) 25 mg STK-MED ONCE .ROUTE ; Start 06/22/18 at 17: 12; Stop 06/22/18 at 17:14; Status DC Quetiapine Fumarate (SEROquel) 12.5 mg DAILY@1900 PO Last administered on at 18:16; Start 06/22/18 at 19:00; Stop 06/24/18 at 18:46; Status DC Rivastigmine Tartrate (Exelon) 1.5 mg DAILY PO Last administered on 06/24/18at 10 :58; Start 06/24/18 at 09:00; Stop 06/24/18 at 14:14; Status DC Rivastigmine Tartrate (Exelon) 3 mg HS PO ; Start 06/23/18 at 21:00; Stop at 21:00; Status DC Rivastigmine Tartrate (Exelon) 3 mg BIDWMEALS PO Last administered on 06/24/18at 10:54; Start 06/23/18 at 17:00; Stop 06/24/18 at 14:14; Status DC Rivastigmine Tartrate (Exelon) 3 mg HS PO ; Start 06/27/18 at 09:00; Stop at 09:00; Status DC Nystatin (Nystop) 1 alan BID TP Last administered on 07/14/18at 20:58; Start 06/23 at 21:00; Stop 07/14/18 at 21:27; Status DC Mirtazapine (Remeron) 15 mg QHS PO Last administered on 07/08/18at 21:01; Start 06/23/18 at 21:00; Stop 07/09/18 at 17:52; Status DC Nystatin (Nystop) 15 alan STK-MED ONCE TP Last administered on 06/23/18at 19:15; Start 06/23/18 at 19:15; Stop 06/23/18 at 19:17; Status DC Rivastigmine Tartrate (Exelon) 3 mg BID PO Last administered on 08/05/18 19:28 ; Start 06/24/18 at 21:00 Fluvoxamine Maleate (Luvox) 25 mg QHS PO Last administered on 06/25/18at 19:22; Start 06/24/18 at 21:00; Stop 06/26/18 at 19:00; Status DC Fluvoxamine Maleate (Luvox) 50 mg QHS PO Last administered on 06/30/18at 19:36; Start 06/26/18 at 21:00; Stop 07/01/18 at 20:00; Status DC Quetiapine Fumarate (SEROquel) 25 mg DAILY@1900 PO Last administered on 18:48; Start 06/24/18 at 19:00; Stop 07/27/18 at 18:08; Status DC Quetiapine Fumarate (SEROquel) 25 mg BID@0900,1500 PO Last administered on 07/26at 14:46; Start 06/25/18 at 09:00; Stop 07/26/18 at 23:47; Status DC Bisacodyl (Dulcolax Supp) 10 mg PRN DAILY PRN [place] CONSTIPATION Last administered on 06/27/18at 11:54; Start 06/27/18 at 10:30 Fluvoxamine Maleate (Luvox) 75 mg QHS PO Last administered on 07/13/18at 19:16; Start 07/01/18 at 21:00; Stop 07/13/18 at 19:43; Status DC Divalproex Sodium (Depakote Sprinkles) 125 mg BID@0900,1700 PO Last administered on 07/25/18at 18:01; Start 06/30/18 at 17:00; Stop 07/25/18 at 19:50; Status DC Mirtazapine (Remeron) 7.5 mg QHS PO Last administered on 07/22/18 20:50; Start 07/09/18 at 21:00; Stop 07/23/18 at 17:07; Status DC Fluvoxamine Maleate (Luvox) 100 mg QHS PO Last administered on 08/05/18 19:28 ; Start 07/13/18 at 21:00 Nystatin (Nystop) 1 alan PRN BID PRN TP skin rash Last administered on 19:58; Start 07/14/18 at 21:30 Mirtazapine (Remeron) 15 mg QHS PO Last administered on 08/05/18 19:28; Start 07/23/18 at 21:00 Trazodone HCl (Desyrel) 50 mg PRN QHS PRN PO INSOMNIA, MAY REPEAT X1 Last administered on 08/04/18at 20:14; Start 07/24/18 at 19:00 Divalproex Sodium (Depakote Sprinkles) 125 mg DAILY PO Last administered on 07:31; Start 07/26/18 at 09:00 Divalproex Sodium (Depakote Sprinkles) 250 mg AFTRNOON PO Last administered on 07/28/18at 12:10; Start 07/26/18 at 15:00; Stop 07/28/18 at 17:07; Status DC Quetiapine Fumarate (SEROquel) 37.5 mg DAILY@1800 PO Last administered on at 16:14; Start 07/27/18 at 18:00; Stop 08/03/18 at 19:31; Status DC Quetiapine Fumarate (SEROquel) 25 mg DAILY PO Last administered on 08/05/18 07 :32; Start 07/27/18 at 09:00 Quetiapine Fumarate (SEROquel) 37.5 mg DAILY@1500 PO Last administered on 15:06; Start 07/27/18 at 15:00; Stop 08/04/18 at 15:19; Status DC Divalproex Sodium (Depakote Sprinkles) 125 mg NOON PO Last administered on 08/05at 13:44; Start 07/29/18 at 12:00 Divalproex Sodium (Depakote Sprinkles) 250 mg HS PO Last administered on at 19:28; Start 07/28/18 at 21:00 Quetiapine Fumarate (SEROquel) 50 mg DAILY@1500 PO Last administered on at 15:41; Start 08/04/18 at 15:00 Quetiapine Fumarate (SEROquel) 37.5 mg 1800 PO Last administered on 08/05/18at 17:01; Start 08/04/18 at 18:00 Active Scripts Active Reported Tamsulosin Hcl 0.4 Mg Cap.er.24h 0.4 Mg PO DAILY Levothyroxine Sodium 88 Mcg Tablet 88 Mcg PO DAILYAC Escitalopram Oxalate 20 Mg Tablet 20 Mg PO DAILY Rivastigmine (Rivastigmine Tartrate) 1.5 Mg Capsule 1.5 Mg PO BID Namenda Xr (Memantine Hcl) 28 Mg Cap.spr.24 28 Mg PO DAILY I have reviewed the current psychotropics carefully including drug interactions. Risk benefit ratio favors no change other than as noted in my dictated progress note. Diagnosis: Problems: (1) Mental status alteration (2) Anxiety disorder (3) Dementia in Alzheimer's disease with delusions (4) Dementia in Alzheimer's disease with depression (5) Dementia, vascular, with delusions (6) Dementia, vascular, with depression (7) Impulse control disorder MILAN TAYLOR MD Aug 05, 2018 22:17
[2018-08-05] MEDS: traZODone 50 MG TABLET. PO PRN ×2 (22:29→22:43)
[2018-08-06] MEDS: LEVOTHYROXINE 88 MCG TABLET PO SCH (05:56)
[2018-08-06 06:07] VITALS: BP 119/69
[2018-08-06] MEDS: DIVALPROEX 125 MG CAP.SPRINK PO SCH ×3 (09:01→19:24)
[2018-08-06] MEDS: MEMANTINE 10 MG TABLET. PO SCH ×2 (09:01→19:24)
[2018-08-06] MEDS: TAMSULOSIN 0.4 MG CAP.ER.24H. PO SCH (09:01)
[2018-08-06] MEDS: QUEtiapine 25 MG TABLET. PO SCH ×2 (09:01→17:50)
[2018-08-06] MEDS: RIVASTIGMINE 3 MG CAPSULE. PO SCH ×2 (09:01→19:24)
[2018-08-06 09:24] LABS: BASO % 1 % (0-3); EOS # 0.4 x10^3/uL (0.0-0.7); EOS % 5 % (0-3); HEMOGLOBIN 11.7 g/dL (13.0-17.5); LYMPH # 1.8 x10^3/uL (1.0-4.8); LYMPH % 23 % (24-48); MEAN CORPUSCULAR HEMOGLOBIN 32 pg (25-35); MEAN CORPUSCULAR HGB CONC 35 g/dL (31-37); MEAN CORPUSCULAR VOLUME 92 fL (79-100); MONO # 1.1 x10^3/uL (0.0-1.1); MONO % 15 % (0-9); NEUT # 4.3 x10^3uL (1.8-7.7); NEUT % 57 % (31-73); PLATELET COUNT 201 x10^3/uL (140-400); RED BLOOD COUNT 3.68 x10^6/uL (4.30-5.70); RED CELL DISTRIBUTION WIDTH 14.7 % (11.5-14.5); WHITE BLOOD COUNT 7.6 x10^3/uL (4.0-11.0)
[2018-08-06 09:30] LABS: ALBUMIN 2.7 g/dL (3.4-5.0); ALBUMIN/GLOBULIN RATIO 0.6 (1.0-1.7); CALCIUM 8.3 mg/dL (8.5-10.1); CREATININE 1.1 mg/dL (0.7-1.3); GFR 64.7; POTASSIUM 4.3 mmol/L (3.5-5.1); TOTAL BILIRUBIN 0.2 mg/dL (0.2-1.0); TOTAL PROTEIN 7.3 g/dL (6.4-8.2)
[2018-08-06] MEDS: QUEtiapine 50 MG TABLET. PO SCH (14:19)
[2018-08-06 16:02] VITALS: BP 109/71
[2018-08-06] MEDS: MIRTAZAPINE 15 MG TABLET PO SCH (19:23)
[2018-08-06] MEDS: traZODone 50 MG TABLET. PO PRN ×2 (19:25→21:37)
--- NOTE | 2018-08-06 22:12 | PDOC ---
Exam Note: Justin Note: Please also refer to the separate dictated note~for this date of service dictated separately.~Patient seen individually. Discussed the patient with Nursing staff reviewed the chart.~Reviewed interim history and current functioning. Reviewed vital signs,~Labs/ Radiology~and current medications noted below. Continue current treatment with the changes noted in the dictated addendum note Assessment: Vital Signs: Vital Signs Date Time Temp Pulse Resp B/P (MAP) Pulse Ox O2 Delivery O2 Flow Rate FiO2 08/06/18 16:02 98.1 73 14 109/71 (84) 94 08/05/18 05:46 Room Air I&O Intake and Output 08/06/18 07:00 Intake Total 860 ml Balance 860 ml Intake Oral 860 ml Labs: Laboratory Tests Test 08/06/18 08:59 White Blood Count 7.6 x10^3/uL (4.0-11.0) Red Blood Count 3.68 x10^6/uL (4.30-5.70) L Hemoglobin 11.7 g/dL (13.0-17.5) L Hematocrit 34.0 % (39.0-53.0) L Mean Corpuscular Volume 92 fL (79-100) Mean Corpuscular Hemoglobin 32 pg (25-35) Mean Corpuscular Hemoglobin Concent 35 g/dL (31-37) Red Cell Distribution Width 14.7 % (11.5-14.5) H Platelet Count 201 x10^3/uL (140-400) Neutrophils (%) (Auto) 57 % (31-73) Lymphocytes (%) (Auto) 23 % (24-48) L Monocytes (%) (Auto) 15 % (0-9) H Eosinophils (%) (Auto) 5 % (0-3) H Basophils (%) (Auto) 1 % (0-3) Neutrophils # (Auto) 4.3 x10^3uL (1.8-7.7) Lymphocytes # (Auto) 1.8 x10^3/uL (1.0-4.8) Monocytes # (Auto) 1.1 x10^3/uL (0.0-1.1) Eosinophils # (Auto) 0.4 x10^3/uL (0.0-0.7) Basophils # (Auto) 0.0 x10^3/uL (0.0-0.2) Sodium Level 142 mmol/L (136-145) Potassium Level 4.3 mmol/L (3.5-5.1) Chloride Level 107 mmol/L (98-107) Carbon Dioxide Level 28 mmol/L (21-32) Anion Gap 7 (6-14) Blood Urea Nitrogen 30 mg/dL (8-26) H Creatinine 1.1 mg/dL (0.7-1.3) Estimated GFR (Cockcroft-Gault) 64.7 BUN/Creatinine Ratio 27 (6-20) H Glucose Level 95 mg/dL (70-99) Calcium Level 8.3 mg/dL (8.5-10.1) L Total Bilirubin 0.2 mg/dL (0.2-1.0) Aspartate Amino Transferase (AST) 19 U/L (15-37) Alanine Aminotransferase (ALT) 30 U/L (16-63) Alkaline Phosphatase 96 U/L (46-116) Total Protein 7.3 g/dL (6.4-8.2) Albumin 2.7 g/dL (3.4-5.0) L Albumin/Globulin Ratio 0.6 (1.0-1.7) L Current Medications: Meds: Current Medications Lorazepam (Ativan) 2 mg 1X ONCE PO Last administered on 06/17/18 19:54; Start 06/17/18 at 20:15; Stop 06/17/18 at 20:16; Status DC Acetaminophen (Tylenol) 650 mg PRN Q6HRS PRN PO PAIN / TEMP Last administered on 07/08/18at 11:59; Start 06/17/18 at 21:30 Multi-Ingredient Ointment (Analgesic [place]) 1 alan PRN QID PRN TP MUSCLE PAIN Last administered on 07/28/18at 17:58; Start 06/17/18 at 21:30 Al Hydroxide/Mg Hydroxide (Mylanta Plus Xs) 15 ml PRN AFTMEALHC PRN PO DYSPEPSIA Last administered on 07/09/18at 17:03; Start 06/17/18 at 21:30 Magnesium Hydroxide (Milk Of Magnesia) 2,400 mg PRN QHS PRN PO CONSTIPATION Last administered on 08/02/18at 17:16; Start 06/17/18 at 21:30 Trazodone HCl (Desyrel) 25 mg PRN QHS PRN PO INSOMNIA Last administered on 23:21; Start 06/17/18 at 21:30; Stop 07/24/18 at 19:00; Status DC Olanzapine (ZyPREXA ZYDIS) 2.5 mg PRN Q2HR PRN PO PSYCHOSIS Last administered on 08/05/18at 22:29; Start 06/17/18 at 21:30 Citalopram Hydrobromide (CeleXA) 40 mg DAILY PO Last administered on 06/19/18 08:09; Start 06/18/18 at 09:00; Stop 06/19/18 at 16:58; Status DC Memantine (Namenda) 10 mg BID PO Last administered on 08/06/18 19:24; Start at 09:00 Rivastigmine Tartrate (Exelon) 1.5 mg BIDWMEALS PO Last administered on at 07:47; Start 06/18/18 at 08:00; Stop 06/23/18 at 16:38; Status DC Levothyroxine Sodium (Synthroid) 88 mcg DAILYAC PO Last administered on at 08:11; Start 06/18/18 at 07:30; Stop 06/19/18 at 17:40; Status DC Tamsulosin HCl (Flomax) 0.4 mg DAILY PO Last administered on 08/06/18 09:01; Start 06/18/18 at 09:00 Hydroxyzine HCl (Atarax) 25 mg PRN Q2HR PRN PO ANXIETY / AGITATION Last administered on 06/21/18at 18:40; Start 06/18/18 at 23:00; Stop 06/21/18 at 20:10; Status DC Carbamide Peroxide (Debrox) 5 drop BID AU Last administered on 06/24/18at 11:00; Start 06/19/18 at 21:00; Stop 06/24/18 at 20:59; Status DC Mirtazapine (Remeron) 7.5 mg QHS PO Last administered on 06/22/18 19:17; Start 06/19/18 at 21:00; Stop 06/23/18 at 18:12; Status DC Sertraline HCl (Zoloft) 50 mg DAILY PO Last administered on 06/24/18at 10:56; Start 06/20/18 at 09:00; Stop 06/24/18 at 18:42; Status DC Quetiapine Fumarate (SEROquel) 12.5 mg 0900,1700 PO Last administered on at 16:23; Start 06/19/18 at 17:00; Stop 06/22/18 at 16:55; Status DC Levothyroxine Sodium (Synthroid) 88 mcg DAILY06 PO Last administered on at 05:56; Start 06/20/18 at 06:00 Quetiapine Fumarate (SEROquel) 12.5 mg BID92 PO ; Start 06/23/18 at 09:00; Stop 06/23/18 at 09:00; Status DC Quetiapine Fumarate (SEROquel) 25 mg DAILY@1900 PO ; Start 06/22/18 at 19:00; Stop 06/22/18 at 19:00; Status DC Quetiapine Fumarate (SEROquel) 12.5 mg BID@0900,1500 PO Last administered on 06/24/18at 16:33; Start 06/23/18 at 09:00; Stop 06/24/18 at 18:46; Status DC Quetiapine Fumarate (SEROquel) 25 mg STK-MED ONCE .ROUTE ; Start 06/22/18 at 17: 12; Stop 06/22/18 at 17:14; Status DC Quetiapine Fumarate (SEROquel) 12.5 mg DAILY@1900 PO Last administered on at 18:16; Start 06/22/18 at 19:00; Stop 06/24/18 at 18:46; Status DC Rivastigmine Tartrate (Exelon) 1.5 mg DAILY PO Last administered on 06/24/18at 10 :58; Start 06/24/18 at 09:00; Stop 06/24/18 at 14:14; Status DC Rivastigmine Tartrate (Exelon) 3 mg HS PO ; Start 06/23/18 at 21:00; Stop at 21:00; Status DC Rivastigmine Tartrate (Exelon) 3 mg BIDWMEALS PO Last administered on 06/24/18at 10:54; Start 06/23/18 at 17:00; Stop 06/24/18 at 14:14; Status DC Rivastigmine Tartrate (Exelon) 3 mg HS PO ; Start 06/27/18 at 09:00; Stop at 09:00; Status DC Nystatin (Nystop) 1 alan BID TP Last administered on 07/14/18at 20:58; Start 06/23 at 21:00; Stop 07/14/18 at 21:27; Status DC Mirtazapine (Remeron) 15 mg QHS PO Last administered on 07/08/18at 21:01; Start 06/23/18 at 21:00; Stop 07/09/18 at 17:52; Status DC Nystatin (Nystop) 15 alan STK-MED ONCE TP Last administered on 06/23/18at 19:15; Start 06/23/18 at 19:15; Stop 06/23/18 at 19:17; Status DC Rivastigmine Tartrate (Exelon) 3 mg BID PO Last administered on 08/06/18at 19:24 ; Start 06/24/18 at 21:00 Fluvoxamine Maleate (Luvox) 25 mg QHS PO Last administered on 06/25/18at 19:22; Start 06/24/18 at 21:00; Stop 06/26/18 at 19:00; Status DC Fluvoxamine Maleate (Luvox) 50 mg QHS PO Last administered on 06/30/18at 19:36; Start 06/26/18 at 21:00; Stop 07/01/18 at 20:00; Status DC Quetiapine Fumarate (SEROquel) 25 mg DAILY@1900 PO Last administered on at 18:48; Start 06/24/18 at 19:00; Stop 07/27/18 at 18:08; Status DC Quetiapine Fumarate (SEROquel) 25 mg BID@0900,1500 PO Last administered on 07/26at 14:46; Start 06/25/18 at 09:00; Stop 07/26/18 at 23:47; Status DC Bisacodyl (Dulcolax Supp) 10 mg PRN DAILY PRN [place] CONSTIPATION Last administered on 06/27/18at 11:54; Start 06/27/18 at 10:30 Fluvoxamine Maleate (Luvox) 75 mg QHS PO Last administered on 07/13/18at 19:16; Start 07/01/18 at 21:00; Stop 07/13/18 at 19:43; Status DC Divalproex Sodium (Depakote Sprinkles) 125 mg BID@0900,1700 PO Last administered on 07/25/18 18:01; Start 06/30/18 at 17:00; Stop 07/25/18 at 19:50; Status DC Mirtazapine (Remeron) 7.5 mg QHS PO Last administered on 07/22/18at 20:50; Start 07/09/18 at 21:00; Stop 07/23/18 at 17:07; Status DC Fluvoxamine Maleate (Luvox) 100 mg QHS PO Last administered on 08/06/18at 19:24 ; Start 07/13/18 at 21:00 Nystatin (Nystop) 1 alan PRN BID PRN TP skin rash Last administered on at 19:58; Start 07/14/18 at 21:30 Mirtazapine (Remeron) 15 mg QHS PO Last administered on 08/06/18 19:23; Start 07/23/18 at 21:00 Trazodone HCl (Desyrel) 50 mg PRN QHS PRN PO INSOMNIA, MAY REPEAT X1 Last administered on 08/06/18at 21:37; Start 07/24/18 at 19:00 Divalproex Sodium (Depakote Sprinkles) 125 mg DAILY PO Last administered on at 09:01; Start 07/26/18 at 09:00 Divalproex Sodium (Depakote Sprinkles) 250 mg AFTRNOON PO Last administered on 07/28/18at 12:10; Start 07/26/18 at 15:00; Stop 07/28/18 at 17:07; Status DC Quetiapine Fumarate (SEROquel) 37.5 mg DAILY@1800 PO Last administered on at 16:14; Start 07/27/18 at 18:00; Stop 08/03/18 at 19:31; Status DC Quetiapine Fumarate (SEROquel) 25 mg DAILY PO Last administered on 08/06/18 09 :01; Start 07/27/18 at 09:00 Quetiapine Fumarate (SEROquel) 37.5 mg DAILY@1500 PO Last administered on 15:06; Start 07/27/18 at 15:00; Stop 08/04/18 at 15:19; Status DC Divalproex Sodium (Depakote Sprinkles) 125 mg NOON PO Last administered on 08/06 13:11; Start 07/29/18 at 12:00 Divalproex Sodium (Depakote Sprinkles) 250 mg HS PO Last administered on 19:24; Start 07/28/18 at 21:00 Quetiapine Fumarate (SEROquel) 50 mg DAILY@1500 PO Last administered on 14:19; Start 08/04/18 at 15:00 Quetiapine Fumarate (SEROquel) 37.5 mg 1800 PO Last administered on 08/06/18at 17:50; Start 08/04/18 at 18:00 Active Scripts Active Reported Tamsulosin Hcl 0.4 Mg Cap.er.24h 0.4 Mg PO DAILY Levothyroxine Sodium 88 Mcg Tablet 88 Mcg PO DAILYAC Escitalopram Oxalate 20 Mg Tablet 20 Mg PO DAILY Rivastigmine (Rivastigmine Tartrate) 1.5 Mg Capsule 1.5 Mg PO BID Namenda Xr (Memantine Hcl) 28 Mg Cap.spr.24 28 Mg PO DAILY I have reviewed the current psychotropics carefully including drug interactions. Risk benefit ratio favors no change other than as noted in my dictated progress note. Diagnosis: Problems: (1) Mental status alteration (2) Anxiety disorder (3) Dementia in Alzheimer's disease with delusions (4) Dementia in Alzheimer's disease with depression (5) Dementia, vascular, with delusions (6) Dementia, vascular, with depression (7) Impulse control disorder MILAN TAYLOR MD Aug 06, 2018 22:12
[2018-08-07] MEDS: LEVOTHYROXINE 88 MCG TABLET PO SCH (05:43)
[2018-08-07 06:20] VITALS: BP 125/72
[2018-08-07] MEDS: QUEtiapine 25 MG TABLET. PO SCH ×2 (07:55→18:05)
[2018-08-07] MEDS: MEMANTINE 10 MG TABLET. PO SCH ×2 (07:55→19:29)
[2018-08-07] MEDS: TAMSULOSIN 0.4 MG CAP.ER.24H. PO SCH (07:55)
[2018-08-07] MEDS: DIVALPROEX 125 MG CAP.SPRINK PO SCH ×3 (07:55→19:29)
[2018-08-07] MEDS: RIVASTIGMINE 3 MG CAPSULE. PO SCH ×2 (07:55→19:29)
--- NOTE | 2018-08-07 10:28 | PN ---
DATE: 08/07/2018 PSYCHIATRIC PROGRESS NOTE This is a late entry 08/05/2018, covers elements not covered in my initial note of 08/05/2018. SUBJECTIVE: I met with the patient in the evening and staffed at treatment team meeting earlier in the day. The patient slept 6 hours previous night. Appetite 95%. He seems to have sundowning at some length during the treatment team meeting. He takes his medications whole, may be transferred to [facility]. He does have a decubitus ulcer on his bottom area. Nursing staff and Dr. Fournier are addressing this. REVIEW OF SYSTEMS: No CV, , pulmonary, eye, ENT system symptoms on review. Reliability poor. MENTAL STATUS EXAM: Oriented to himself. Insight, judgment, recent and remote memory, attention, concentration, fund of knowledge poor, consistent with his diagnoses mentioned in my initial note. PLAN: No change from initial note. Continue psychotropics from initial note. MILAN TAYLOR MD DR: NATAN/alfredo JOB#: [id number] / [id number]
[2018-08-07] MEDS: QUEtiapine 50 MG TABLET. PO SCH (13:20)
[2018-08-07 15:57] VITALS: BP 126/73
[2018-08-07] MEDS: MIRTAZAPINE 15 MG TABLET PO SCH (19:29)
[2018-08-07] MEDS: traZODone 50 MG TABLET. PO PRN ×2 (19:30→20:47)
--- NOTE | 2018-08-07 20:38 | PN ---
DATE: 08/06/2018 PSYCHIATRIC PROGRESS NOTE This late entry 08/06/2018 covers elements not covered in my initial note. SUBJECTIVE: I met with the patient in the evening. The patient slept 4-1/2 hours previous night, another 5 hours in the morning because he slept until 11 a.m. Agitated previous night with care, twisting the arm of nursing staff, spitting meds out. Today on 08/06/2018, he has been better per nursing report. REVIEW OF SYSTEMS: No CV, , pulmonary, eye, ENT system symptoms on review. Reliability poor. MENTAL STATUS EXAM: Oriented to himself. Insight, judgment, recent and remote memory, attention, concentration, fund of knowledge poor consistent with his diagnosis mentioned in my initial note. PLAN: No change from initial note. MAN Connie TAYLOR MD DR: NATAN/alfredo JOB#: [id number] / [id number]
--- NOTE | 2018-08-07 22:38 | PDOC ---
Exam Note: Justin Note: Please also refer to the separate dictated note~for this date of service dictated separately.~Patient seen individually. Discussed the patient with Nursing staff reviewed the chart.~Reviewed interim history and current functioning. Reviewed vital signs,~Labs/ Radiology~and current medications noted below. Continue current treatment with the changes noted in the dictated addendum note Assessment: Vital Signs: Vital Signs Date Time Temp Pulse Resp B/P (MAP) Pulse Ox O2 Delivery O2 Flow Rate FiO2 08/07/18 15:57 98.4 82 20 126/73 (90) 98 08/07/18 06:20 Room Air I&O Intake and Output 08/07/18 07:00 Intake Total 1080 ml Balance 1080 ml Intake Oral 1080 ml # Voids 1 Current Medications: Meds: Current Medications Lorazepam (Ativan) 2 mg 1X ONCE PO Last administered on 06/17/18 19:54; Start 06/17/18 at 20:15; Stop 06/17/18 at 20:16; Status DC Acetaminophen (Tylenol) 650 mg PRN Q6HRS PRN PO PAIN / TEMP Last administered on 07/08/18 11:59; Start 06/17/18 at 21:30 Multi-Ingredient Ointment (Analgesic Malone) 1 alan PRN QID PRN TP MUSCLE PAIN Last administered on 07/28/18 17:58; Start 06/17/18 at 21:30 Al Hydroxide/Mg Hydroxide (Mylanta Plus Xs) 15 ml PRN AFTMEALHC PRN PO DYSPEPSIA Last administered on 07/09/18 17:03; Start 06/17/18 at 21:30 Magnesium Hydroxide (Milk Of Magnesia) 2,400 mg PRN QHS PRN PO CONSTIPATION Last administered on 08/02/18 17:16; Start 06/17/18 at 21:30 Trazodone HCl (Desyrel) 25 mg PRN QHS PRN PO INSOMNIA Last administered on 23:21; Start 06/17/18 at 21:30; Stop 07/24/18 at 19:00; Status DC Olanzapine (ZyPREXA ZYDIS) 2.5 mg PRN Q2HR PRN PO PSYCHOSIS Last administered on 08/07/18 19:31; Start 06/17/18 at 21:30 Citalopram Hydrobromide (CeleXA) 40 mg DAILY PO Last administered on 06/19/18 08:09; Start 06/18/18 at 09:00; Stop 06/19/18 at 16:58; Status DC Memantine (Namenda) 10 mg BID PO Last administered on 08/07/18 19:29; Start at 09:00 Rivastigmine Tartrate (Exelon) 1.5 mg BIDWMEALS PO Last administered on 07:47; Start 06/18/18 at 08:00; Stop 06/23/18 at 16:38; Status DC Levothyroxine Sodium (Synthroid) 88 mcg DAILYAC PO Last administered on 08:11; Start 06/18/18 at 07:30; Stop 06/19/18 at 17:40; Status DC Tamsulosin HCl (Flomax) 0.4 mg DAILY PO Last administered on 08/07/18 07:55; Start 06/18/18 at 09:00 Hydroxyzine HCl (Atarax) 25 mg PRN Q2HR PRN PO ANXIETY / AGITATION Last administered on 06/21/18 18:40; Start 06/18/18 at 23:00; Stop 06/21/18 at 20:10; Status DC Carbamide Peroxide (Debrox) 5 drop BID AU Last administered on 06/24/18 11:00; Start 06/19/18 at 21:00; Stop 06/24/18 at 20:59; Status DC Mirtazapine (Remeron) 7.5 mg QHS PO Last administered on 06/22/18 19:17; Start 06/19/18 at 21:00; Stop 06/23/18 at 18:12; Status DC Sertraline HCl (Zoloft) 50 mg DAILY PO Last administered on 06/24/18 10:56; Start 06/20/18 at 09:00; Stop 06/24/18 at 18:42; Status DC Quetiapine Fumarate (SEROquel) 12.5 mg 0900,1700 PO Last administered on 16:23; Start 06/19/18 at 17:00; Stop 06/22/18 at 16:55; Status DC Levothyroxine Sodium (Synthroid) 88 mcg DAILY06 PO Last administered on at 05:43; Start 06/20/18 at 06:00 Quetiapine Fumarate (SEROquel) 12.5 mg BID92 PO ; Start 06/23/18 at 09:00; Stop 06/23/18 at 09:00; Status DC Quetiapine Fumarate (SEROquel) 25 mg DAILY@1900 PO ; Start 06/22/18 at 19:00; Stop 06/22/18 at 19:00; Status DC Quetiapine Fumarate (SEROquel) 12.5 mg BID@0900,1500 PO Last administered on 06/24/18at 16:33; Start 06/23/18 at 09:00; Stop 06/24/18 at 18:46; Status DC Quetiapine Fumarate (SEROquel) 25 mg STK-MED ONCE .ROUTE ; Start 06/22/18 at 17: 12; Stop 06/22/18 at 17:14; Status DC Quetiapine Fumarate (SEROquel) 12.5 mg DAILY@1900 PO Last administered on at 18:16; Start 06/22/18 at 19:00; Stop 06/24/18 at 18:46; Status DC Rivastigmine Tartrate (Exelon) 1.5 mg DAILY PO Last administered on 06/24/18at 10 :58; Start 06/24/18 at 09:00; Stop 06/24/18 at 14:14; Status DC Rivastigmine Tartrate (Exelon) 3 mg HS PO ; Start 06/23/18 at 21:00; Stop at 21:00; Status DC Rivastigmine Tartrate (Exelon) 3 mg BIDWMEALS PO Last administered on 06/24/18at 10:54; Start 06/23/18 at 17:00; Stop 06/24/18 at 14:14; Status DC Rivastigmine Tartrate (Exelon) 3 mg HS PO ; Start 06/27/18 at 09:00; Stop at 09:00; Status DC Nystatin (Nystop) 1 alan BID TP Last administered on 07/14/18at 20:58; Start 06/23 at 21:00; Stop 07/14/18 at 21:27; Status DC Mirtazapine (Remeron) 15 mg QHS PO Last administered on 07/08/18at 21:01; Start 06/23/18 at 21:00; Stop 07/09/18 at 17:52; Status DC Nystatin (Nystop) 15 alan STK-MED ONCE TP Last administered on 06/23/18at 19:15; Start 06/23/18 at 19:15; Stop 06/23/18 at 19:17; Status DC Rivastigmine Tartrate (Exelon) 3 mg BID PO Last administered on 08/07/18 19:29 ; Start 06/24/18 at 21:00 Fluvoxamine Maleate (Luvox) 25 mg QHS PO Last administered on 06/25/18at 19:22; Start 06/24/18 at 21:00; Stop 06/26/18 at 19:00; Status DC Fluvoxamine Maleate (Luvox) 50 mg QHS PO Last administered on 06/30/18at 19:36; Start 06/26/18 at 21:00; Stop 07/01/18 at 20:00; Status DC Quetiapine Fumarate (SEROquel) 25 mg DAILY@1900 PO Last administered on 18:48; Start 06/24/18 at 19:00; Stop 07/27/18 at 18:08; Status DC Quetiapine Fumarate (SEROquel) 25 mg BID@0900,1500 PO Last administered on 07/26 14:46; Start 06/25/18 at 09:00; Stop 07/26/18 at 23:47; Status DC Bisacodyl (Dulcolax Supp) 10 mg PRN DAILY PRN [place] CONSTIPATION Last administered on 06/27/18at 11:54; Start 06/27/18 at 10:30 Fluvoxamine Maleate (Luvox) 75 mg QHS PO Last administered on 07/13/18at 19:16; Start 07/01/18 at 21:00; Stop 07/13/18 at 19:43; Status DC Divalproex Sodium (Depakote Sprinkles) 125 mg BID@0900,1700 PO Last administered on 07/25/18at 18:01; Start 06/30/18 at 17:00; Stop 07/25/18 at 19:50; Status DC Mirtazapine (Remeron) 7.5 mg QHS PO Last administered on 07/22/18 20:50; Start 07/09/18 at 21:00; Stop 07/23/18 at 17:07; Status DC Fluvoxamine Maleate (Luvox) 100 mg QHS PO Last administered on 08/07/18 19:29 ; Start 07/13/18 at 21:00 Nystatin (Nystop) 1 alan PRN BID PRN TP skin rash Last administered on 19:58; Start 07/14/18 at 21:30 Mirtazapine (Remeron) 15 mg QHS PO Last administered on 08/07/18 19:29; Start 07/23/18 at 21:00 Trazodone HCl (Desyrel) 50 mg PRN QHS PRN PO INSOMNIA, MAY REPEAT X1 Last administered on 08/07/18 20:47; Start 07/24/18 at 19:00 Divalproex Sodium (Depakote Sprinkles) 125 mg DAILY PO Last administered on 07:55; Start 07/26/18 at 09:00 Divalproex Sodium (Depakote Sprinkles) 250 mg AFTRNOON PO Last administered on 07/28/18 12:10; Start 07/26/18 at 15:00; Stop 07/28/18 at 17:07; Status DC Quetiapine Fumarate (SEROquel) 37.5 mg DAILY@1800 PO Last administered on 16:14; Start 07/27/18 at 18:00; Stop 08/03/18 at 19:31; Status DC Quetiapine Fumarate (SEROquel) 25 mg DAILY PO Last administered on 08/07/18 07 :55; Start 07/27/18 at 09:00 Quetiapine Fumarate (SEROquel) 37.5 mg DAILY@1500 PO Last administered on 15:06; Start 07/27/18 at 15:00; Stop 08/04/18 at 15:19; Status DC Divalproex Sodium (Depakote Sprinkles) 125 mg NOON PO Last administered on 08/07at 13:20; Start 07/29/18 at 12:00 Divalproex Sodium (Depakote Sprinkles) 250 mg HS PO Last administered on at 19:29; Start 07/28/18 at 21:00 Quetiapine Fumarate (SEROquel) 50 mg DAILY@1500 PO Last administered on at 13:20; Start 08/04/18 at 15:00 Quetiapine Fumarate (SEROquel) 37.5 mg 1800 PO Last administered on 08/07/18at 18:05; Start 08/04/18 at 18:00 Active Scripts Active Reported Tamsulosin Hcl 0.4 Mg Cap.er.24h 0.4 Mg PO DAILY Levothyroxine Sodium 88 Mcg Tablet 88 Mcg PO DAILYAC Escitalopram Oxalate 20 Mg Tablet 20 Mg PO DAILY Rivastigmine (Rivastigmine Tartrate) 1.5 Mg Capsule 1.5 Mg PO BID Namenda Xr (Memantine Hcl) 28 Mg Cap.spr.24 28 Mg PO DAILY I have reviewed the current psychotropics carefully including drug interactions. Risk benefit ratio favors no change other than as noted in my dictated progress note. Diagnosis: Problems: (1) Mental status alteration (2) Anxiety disorder (3) Dementia in Alzheimer's disease with delusions (4) Dementia in Alzheimer's disease with depression (5) Dementia, vascular, with delusions (6) Dementia, vascular, with depression (7) Impulse control disorder MILAN TAYLOR MD Aug 07, 2018 22:38
[2018-08-08] MEDS: LEVOTHYROXINE 88 MCG TABLET PO SCH (04:52)
[2018-08-08 05:27] VITALS: BP 121/67
[2018-08-08] MEDS: MEMANTINE 10 MG TABLET. PO SCH ×2 (08:02→19:46)
[2018-08-08] MEDS: TAMSULOSIN 0.4 MG CAP.ER.24H. PO SCH (08:02)
[2018-08-08] MEDS: RIVASTIGMINE 3 MG CAPSULE. PO SCH ×2 (08:02→19:46)
[2018-08-08] MEDS: QUEtiapine 25 MG TABLET. PO SCH ×2 (08:02→18:11)
[2018-08-08] MEDS: DIVALPROEX 125 MG CAP.SPRINK PO SCH ×3 (08:02→19:46)
[2018-08-08] MEDS: QUEtiapine 50 MG TABLET. PO SCH (13:48)
[2018-08-08 15:40] VITALS: BP 100/62
[2018-08-08] MEDS: MIRTAZAPINE 15 MG TABLET PO SCH (19:46)
[2018-08-08] MEDS: traZODone 100 MG TABLET. PO SCH (19:46)
--- NOTE | 2018-08-08 21:34 | PDOC ---
Exam Note: Justin Note: Please also refer to the separate dictated note~for this date of service dictated separately.~Patient seen individually. Discussed the patient with Nursing staff reviewed the chart.~Reviewed interim history and current functioning. Reviewed vital signs,~Labs/ Radiology~and current medications noted below. Continue current treatment with the changes noted in the dictated addendum note Assessment: Vital Signs: Vital Signs Date Time Temp Pulse Resp B/P (MAP) Pulse Ox O2 Delivery O2 Flow Rate FiO2 08/08/18 15:40 97.6 20 100/62 (75) 98 Room Air 08/08/18 05:27 16 I&O Intake and Output 08/08/18 07:00 Intake Total 1080 ml Balance 1080 ml Intake Oral 1080 ml # Voids 1 Current Medications: Meds: Current Medications Lorazepam (Ativan) 2 mg 1X ONCE PO Last administered on 06/17/18 19:54; Start 06/17/18 at 20:15; Stop 06/17/18 at 20:16; Status DC Acetaminophen (Tylenol) 650 mg PRN Q6HRS PRN PO PAIN / TEMP Last administered on 07/08/18 11:59; Start 06/17/18 at 21:30 Multi-Ingredient Ointment (Analgesic Varney) 1 alan PRN QID PRN TP MUSCLE PAIN Last administered on 07/28/18 17:58; Start 06/17/18 at 21:30 Al Hydroxide/Mg Hydroxide (Mylanta Plus Xs) 15 ml PRN AFTMEALHC PRN PO DYSPEPSIA Last administered on 07/09/18 17:03; Start 06/17/18 at 21:30 Magnesium Hydroxide (Milk Of Magnesia) 2,400 mg PRN QHS PRN PO CONSTIPATION Last administered on 08/02/18 17:16; Start 06/17/18 at 21:30 Trazodone HCl (Desyrel) 25 mg PRN QHS PRN PO INSOMNIA Last administered on 23:21; Start 06/17/18 at 21:30; Stop 07/24/18 at 19:00; Status DC Olanzapine (ZyPREXA ZYDIS) 2.5 mg PRN Q2HR PRN PO PSYCHOSIS Last administered on 08/07/18 19:31; Start 06/17/18 at 21:30 Citalopram Hydrobromide (CeleXA) 40 mg DAILY PO Last administered on 06/19/18 08:09; Start 06/18/18 at 09:00; Stop 06/19/18 at 16:58; Status DC Memantine (Namenda) 10 mg BID PO Last administered on 08/08/18 19:46; Start at 09:00 Rivastigmine Tartrate (Exelon) 1.5 mg BIDWMEALS PO Last administered on 07:47; Start 06/18/18 at 08:00; Stop 06/23/18 at 16:38; Status DC Levothyroxine Sodium (Synthroid) 88 mcg DAILYAC PO Last administered on 08:11; Start 06/18/18 at 07:30; Stop 06/19/18 at 17:40; Status DC Tamsulosin HCl (Flomax) 0.4 mg DAILY PO Last administered on 08/08/18 08:02; Start 06/18/18 at 09:00 Hydroxyzine HCl (Atarax) 25 mg PRN Q2HR PRN PO ANXIETY / AGITATION Last administered on 06/21/18 18:40; Start 06/18/18 at 23:00; Stop 06/21/18 at 20:10; Status DC Carbamide Peroxide (Debrox) 5 drop BID AU Last administered on 06/24/18 11:00; Start 06/19/18 at 21:00; Stop 06/24/18 at 20:59; Status DC Mirtazapine (Remeron) 7.5 mg QHS PO Last administered on 06/22/18 19:17; Start 06/19/18 at 21:00; Stop 06/23/18 at 18:12; Status DC Sertraline HCl (Zoloft) 50 mg DAILY PO Last administered on 06/24/18 10:56; Start 06/20/18 at 09:00; Stop 06/24/18 at 18:42; Status DC Quetiapine Fumarate (SEROquel) 12.5 mg 0900,1700 PO Last administered on 16:23; Start 06/19/18 at 17:00; Stop 06/22/18 at 16:55; Status DC Levothyroxine Sodium (Synthroid) 88 mcg DAILY06 PO Last administered on at 04:52; Start 06/20/18 at 06:00 Quetiapine Fumarate (SEROquel) 12.5 mg BID92 PO ; Start 06/23/18 at 09:00; Stop 06/23/18 at 09:00; Status DC Quetiapine Fumarate (SEROquel) 25 mg DAILY@1900 PO ; Start 06/22/18 at 19:00; Stop 06/22/18 at 19:00; Status DC Quetiapine Fumarate (SEROquel) 12.5 mg BID@0900,1500 PO Last administered on 06/24/18at 16:33; Start 06/23/18 at 09:00; Stop 06/24/18 at 18:46; Status DC Quetiapine Fumarate (SEROquel) 25 mg STK-MED ONCE .ROUTE ; Start 06/22/18 at 17: 12; Stop 06/22/18 at 17:14; Status DC Quetiapine Fumarate (SEROquel) 12.5 mg DAILY@1900 PO Last administered on at 18:16; Start 06/22/18 at 19:00; Stop 06/24/18 at 18:46; Status DC Rivastigmine Tartrate (Exelon) 1.5 mg DAILY PO Last administered on 06/24/18at 10 :58; Start 06/24/18 at 09:00; Stop 06/24/18 at 14:14; Status DC Rivastigmine Tartrate (Exelon) 3 mg HS PO ; Start 06/23/18 at 21:00; Stop at 21:00; Status DC Rivastigmine Tartrate (Exelon) 3 mg BIDWMEALS PO Last administered on 06/24/18at 10:54; Start 06/23/18 at 17:00; Stop 06/24/18 at 14:14; Status DC Rivastigmine Tartrate (Exelon) 3 mg HS PO ; Start 06/27/18 at 09:00; Stop at 09:00; Status DC Nystatin (Nystop) 1 alan BID TP Last administered on 07/14/18at 20:58; Start 06/23 at 21:00; Stop 07/14/18 at 21:27; Status DC Mirtazapine (Remeron) 15 mg QHS PO Last administered on 07/08/18at 21:01; Start 06/23/18 at 21:00; Stop 07/09/18 at 17:52; Status DC Nystatin (Nystop) 15 alan STK-MED ONCE TP Last administered on 06/23/18at 19:15; Start 06/23/18 at 19:15; Stop 06/23/18 at 19:17; Status DC Rivastigmine Tartrate (Exelon) 3 mg BID PO Last administered on 08/08/18 19:46 ; Start 06/24/18 at 21:00 Fluvoxamine Maleate (Luvox) 25 mg QHS PO Last administered on 06/25/18at 19:22; Start 06/24/18 at 21:00; Stop 06/26/18 at 19:00; Status DC Fluvoxamine Maleate (Luvox) 50 mg QHS PO Last administered on 06/30/18at 19:36; Start 06/26/18 at 21:00; Stop 07/01/18 at 20:00; Status DC Quetiapine Fumarate (SEROquel) 25 mg DAILY@1900 PO Last administered on 18:48; Start 06/24/18 at 19:00; Stop 07/27/18 at 18:08; Status DC Quetiapine Fumarate (SEROquel) 25 mg BID@0900,1500 PO Last administered on 07/26 14:46; Start 06/25/18 at 09:00; Stop 07/26/18 at 23:47; Status DC Bisacodyl (Dulcolax Supp) [address] CONSTIPATION Last administered on 06/27/18at 11:54; Start 06/27/18 at 10:30 Fluvoxamine Maleate (Luvox) 75 mg QHS PO Last administered on 07/13/18at 19:16; Start 07/01/18 at 21:00; Stop 07/13/18 at 19:43; Status DC Divalproex Sodium (Depakote Sprinkles) 125 mg BID@0900,1700 PO Last administered on 07/25/18at 18:01; Start 06/30/18 at 17:00; Stop 07/25/18 at 19:50; Status DC Mirtazapine (Remeron) 7.5 mg QHS PO Last administered on 07/22/18 20:50; Start 07/09/18 at 21:00; Stop 07/23/18 at 17:07; Status DC Fluvoxamine Maleate (Luvox) 100 mg QHS PO Last administered on 08/08/18 19:46 ; Start 07/13/18 at 21:00 Nystatin (Nystop) 1 alan PRN BID PRN TP skin rash Last administered on 19:58; Start 07/14/18 at 21:30 Mirtazapine (Remeron) 15 mg QHS PO Last administered on 08/08/18 19:46; Start 07/23/18 at 21:00 Trazodone HCl (Desyrel) 50 mg PRN QHS PRN PO INSOMNIA Last administered on 08/07 20:47; Start 07/24/18 at 19:00 Divalproex Sodium (Depakote Sprinkles) 125 mg DAILY PO Last administered on 08:02; Start 07/26/18 at 09:00 Divalproex Sodium (Depakote Sprinkles) 250 mg AFTRNOON PO Last administered on 07/28/18 12:10; Start 07/26/18 at 15:00; Stop 07/28/18 at 17:07; Status DC Quetiapine Fumarate (SEROquel) 37.5 mg DAILY@1800 PO Last administered on 16:14; Start 07/27/18 at 18:00; Stop 08/03/18 at 19:31; Status DC Quetiapine Fumarate (SEROquel) 25 mg DAILY PO Last administered on 08/08/18 08 :02; Start 07/27/18 at 09:00 Quetiapine Fumarate (SEROquel) 37.5 mg DAILY@1500 PO Last administered on 15:06; Start 07/27/18 at 15:00; Stop 08/04/18 at 15:19; Status DC Divalproex Sodium (Depakote Sprinkles) 125 mg NOON PO Last administered on 08/08 12:00; Start 07/29/18 at 12:00 Divalproex Sodium (Depakote Sprinkles) 250 mg HS PO Last administered on 19:46; Start 07/28/18 at 21:00 Quetiapine Fumarate (SEROquel) 50 mg DAILY@1500 PO Last administered on 13:48; Start 08/04/18 at 15:00 Quetiapine Fumarate (SEROquel) 37.5 mg 1800 PO Last administered on 08/08/18 18:11; Start 08/04/18 at 18:00 Trazodone HCl (Desyrel) 100 mg QHS PO Last administered on 08/08/18 19:46; Start 08/08/18 at 21:00 Active Scripts Active Reported Tamsulosin Hcl 0.4 Mg Cap.er.24h 0.4 Mg PO DAILY Levothyroxine Sodium 88 Mcg Tablet 88 Mcg PO DAILYAC Escitalopram Oxalate 20 Mg Tablet 20 Mg PO DAILY Rivastigmine (Rivastigmine Tartrate) 1.5 Mg Capsule 1.5 Mg PO BID Namenda Xr (Memantine Hcl) 28 Mg Cap.spr.24 28 Mg PO DAILY I have reviewed the current psychotropics carefully including drug interactions. Risk benefit ratio favors no change other than as noted in my dictated progress note. Diagnosis: Problems: (1) Mental status alteration (2) Anxiety disorder (3) Dementia in Alzheimer's disease with delusions (4) Dementia in Alzheimer's disease with depression (5) Dementia, vascular, with delusions (6) Dementia, vascular, with depression (7) Impulse control disorder MILAN TAYLOR MD Aug 08, 2018 21:33
[2018-08-09] MEDS: LEVOTHYROXINE 88 MCG TABLET PO SCH (04:56)
[2018-08-09 06:07] VITALS: BP 160/78
[2018-08-09] MEDS: DIVALPROEX 125 MG CAP.SPRINK PO SCH ×3 (07:45→20:09)
[2018-08-09] MEDS: MEMANTINE 10 MG TABLET. PO SCH ×2 (07:45→20:09)
[2018-08-09] MEDS: QUEtiapine 25 MG TABLET. PO SCH ×2 (07:45→17:42)
[2018-08-09] MEDS: TAMSULOSIN 0.4 MG CAP.ER.24H. PO SCH (07:45)
[2018-08-09] MEDS: RIVASTIGMINE 3 MG CAPSULE. PO SCH ×2 (07:45→20:09)
--- NOTE | 2018-08-09 12:26 | PN ---
DATE: 08/07/2018 PSYCHIATRIC PROGRESS NOTE This late entry 08/07/2018 covers elements, not covered in my initial note. SUBJECTIVE: I met with the patient in the evening. The patient slept 6-1/2 hours previous night. The patient remains confused, wandering up and down the hallway, redirectable, received trazodone x 2 previous night and then slept better. REVIEW OF SYSTEMS: No CV, , pulmonary, eye, ENT system symptoms on review. Reliability poor. MENTAL STATUS EXAM: Oriented to himself. Insight, judgment, recent and remote memory, attention, concentration, fund of knowledge poor, consistent with his diagnosis mentioned in my initial note. PLAN: No change from initial note. MAN Connie TAYLOR MD DR: NATAN/alfredo JOB#: [id number] / [id number]
[2018-08-09] MEDS: QUEtiapine 50 MG TABLET. PO SCH (12:57)
[2018-08-09] MEDS ORDERED: ACET325T9 PO (14:00)
[2018-08-09] MEDS ORDERED: BISA10EN RC (14:01)
[2018-08-09] MEDS ORDERED: DIVA125C2 PO ×2 (14:05→14:07)
[2018-08-09] MEDS ORDERED: MAG355OR12 PO (14:18)
[2018-08-09] MEDS ORDERED: MAGN2400 PO (14:20)
[2018-08-09] MEDS ORDERED: MENT113G6 TP (14:21)
[2018-08-09] MEDS ORDERED: MIRT15TA3 PO (14:23)
[2018-08-09] MEDS ORDERED: NYST15PO9 TP (14:24)
[2018-08-09] MEDS ORDERED: OLAN5TAB5 PO (14:29)
[2018-08-09] MEDS ORDERED: QUET50TA5 PO (14:30)
[2018-08-09] MEDS ORDERED: QUET25TA5 PO ×2 (14:30→14:31)
[2018-08-09] MEDS ORDERED: FLUV100C PO (14:32)
[2018-08-09] MEDS ORDERED: TRAZ-86 PO (14:34)
[2018-08-09] MEDS ORDERED: TRAZ-120 PO (14:34)
[2018-08-09 16:12] VITALS: BP 106/64
--- NOTE | 2018-08-09 19:40 | PDOC ---
Exam Note: Justin Note: Please also refer to the separate dictated note~for this date of service dictated separately.~Patient seen individually. Discussed the patient with Nursing staff reviewed the chart.~Reviewed interim history and current functioning. Reviewed vital signs,~Labs/ Radiology~and current medications noted below. Continue current treatment with the changes noted in the dictated addendum note Assessment: Vital Signs: Vital Signs Date Time Temp Pulse Resp B/P (MAP) Pulse Ox O2 Delivery O2 Flow Rate FiO2 08/09/18 16:12 98.1 79 18 106/64 (78) 92 08/08/18 15:40 Room Air I&O Intake and Output 08/09/18 06:59 Intake Total 360 ml Balance 360 ml Intake Oral 360 ml # Voids 2 Current Medications: Meds: Current Medications Lorazepam (Ativan) 2 mg 1X ONCE PO Last administered on 06/17/18 19:54; Start 06/17/18 at 20:15; Stop 06/17/18 at 20:16; Status DC Acetaminophen (Tylenol) 650 mg PRN Q6HRS PRN PO PAIN / TEMP Last administered on 07/08/18 11:59; Start 06/17/18 at 21:30 Multi-Ingredient Ointment (Analgesic [place]) 1 kita PRN QID PRN TP MUSCLE PAIN Last administered on 07/28/18 17:58; Start 06/17/18 at 21:30 Al Hydroxide/Mg Hydroxide (Mylanta Plus Xs) 15 ml PRN AFTMEALHC PRN PO DYSPEPSIA Last administered on 07/09/18 17:03; Start 06/17/18 at 21:30 Magnesium Hydroxide (Milk Of Magnesia) 2,400 mg PRN QHS PRN PO CONSTIPATION Last administered on 08/02/18 17:16; Start 06/17/18 at 21:30 Trazodone HCl (Desyrel) 25 mg PRN QHS PRN PO INSOMNIA Last administered on 23:21; Start 06/17/18 at 21:30; Stop 07/24/18 at 19:00; Status DC Olanzapine (ZyPREXA ZYDIS) 2.5 mg PRN Q2HR PRN PO PSYCHOSIS Last administered on 08/07/18 19:31; Start 06/17/18 at 21:30 Citalopram Hydrobromide (CeleXA) 40 mg DAILY PO Last administered on 06/19/18 08:09; Start 06/18/18 at 09:00; Stop 06/19/18 at 16:58; Status DC Memantine (Namenda) 10 mg BID PO Last administered on 08/09/18 07:45; Start at 09:00 Rivastigmine Tartrate (Exelon) 1.5 mg BIDWMEALS PO Last administered on 07:47; Start 06/18/18 at 08:00; Stop 06/23/18 at 16:38; Status DC Levothyroxine Sodium (Synthroid) 88 mcg DAILYAC PO Last administered on 08:11; Start 06/18/18 at 07:30; Stop 06/19/18 at 17:40; Status DC Tamsulosin HCl (Flomax) 0.4 mg DAILY PO Last administered on 08/09/18 07:45; Start 06/18/18 at 09:00 Hydroxyzine HCl (Atarax) 25 mg PRN Q2HR PRN PO ANXIETY / AGITATION Last administered on 06/21/18 18:40; Start 06/18/18 at 23:00; Stop 06/21/18 at 20:10; Status DC Carbamide Peroxide (Debrox) 5 drop BID AU Last administered on 06/24/18 11:00; Start 06/19/18 at 21:00; Stop 06/24/18 at 20:59; Status DC Mirtazapine (Remeron) 7.5 mg QHS PO Last administered on 06/22/18 19:17; Start 06/19/18 at 21:00; Stop 06/23/18 at 18:12; Status DC Sertraline HCl (Zoloft) 50 mg DAILY PO Last administered on 06/24/18 10:56; Start 06/20/18 at 09:00; Stop 06/24/18 at 18:42; Status DC Quetiapine Fumarate (SEROquel) 12.5 mg 0900,1700 PO Last administered on 16:23; Start 06/19/18 at 17:00; Stop 06/22/18 at 16:55; Status DC Levothyroxine Sodium (Synthroid) 88 mcg DAILY06 PO Last administered on at 04:56; Start 06/20/18 at 06:00 Quetiapine Fumarate (SEROquel) 12.5 mg BID92 PO ; Start 06/23/18 at 09:00; Stop 06/23/18 at 09:00; Status DC Quetiapine Fumarate (SEROquel) 25 mg DAILY@1900 PO ; Start 06/22/18 at 19:00; Stop 06/22/18 at 19:00; Status DC Quetiapine Fumarate (SEROquel) 12.5 mg BID@0900,1500 PO Last administered on 06/24/18at 16:33; Start 06/23/18 at 09:00; Stop 06/24/18 at 18:46; Status DC Quetiapine Fumarate (SEROquel) 25 mg STK-MED ONCE .ROUTE ; Start 06/22/18 at 17: 12; Stop 06/22/18 at 17:14; Status DC Quetiapine Fumarate (SEROquel) 12.5 mg DAILY@1900 PO Last administered on at 18:16; Start 06/22/18 at 19:00; Stop 06/24/18 at 18:46; Status DC Rivastigmine Tartrate (Exelon) 1.5 mg DAILY PO Last administered on 06/24/18at 10 :58; Start 06/24/18 at 09:00; Stop 06/24/18 at 14:14; Status DC Rivastigmine Tartrate (Exelon) 3 mg HS PO ; Start 06/23/18 at 21:00; Stop at 21:00; Status DC Rivastigmine Tartrate (Exelon) 3 mg BIDWMEALS PO Last administered on 06/24/18at 10:54; Start 06/23/18 at 17:00; Stop 06/24/18 at 14:14; Status DC Rivastigmine Tartrate (Exelon) 3 mg HS PO ; Start 06/27/18 at 09:00; Stop at 09:00; Status DC Nystatin (Nystop) 1 kita BID TP Last administered on 07/14/18at 20:58; Start 06/23 at 21:00; Stop 07/14/18 at 21:27; Status DC Mirtazapine (Remeron) 15 mg QHS PO Last administered on 07/08/18at 21:01; Start 06/23/18 at 21:00; Stop 07/09/18 at 17:52; Status DC Nystatin (Nystop) 15 kita STK-MED ONCE TP Last administered on 06/23/18at 19:15; Start 06/23/18 at 19:15; Stop 06/23/18 at 19:17; Status DC Rivastigmine Tartrate (Exelon) 3 mg BID PO Last administered on 08/09/18at 07:45 ; Start 06/24/18 at 21:00 Fluvoxamine Maleate (Luvox) 25 mg QHS PO Last administered on 06/25/18at 19:22; Start 06/24/18 at 21:00; Stop 06/26/18 at 19:00; Status DC Fluvoxamine Maleate (Luvox) 50 mg QHS PO Last administered on 06/30/18at 19:36; Start 06/26/18 at 21:00; Stop 07/01/18 at 20:00; Status DC Quetiapine Fumarate (SEROquel) 25 mg DAILY@1900 PO Last administered on at 18:48; Start 06/24/18 at 19:00; Stop 07/27/18 at 18:08; Status DC Quetiapine Fumarate (SEROquel) 25 mg BID@0900,1500 PO Last administered on 07/26at 14:46; Start 06/25/18 at 09:00; Stop 07/26/18 at 23:47; Status DC Bisacodyl (Dulcolax Supp) 10 mg PRN DAILY PRN [place] CONSTIPATION Last administered on 06/27/18at 11:54; Start 06/27/18 at 10:30 Fluvoxamine Maleate (Luvox) 75 mg QHS PO Last administered on 07/13/18at 19:16; Start 07/01/18 at 21:00; Stop 07/13/18 at 19:43; Status DC Divalproex Sodium (Depakote Sprinkles) 125 mg BID@0900,1700 PO Last administered on 07/25/18at 18:01; Start 06/30/18 at 17:00; Stop 07/25/18 at 19:50; Status DC Mirtazapine (Remeron) 7.5 mg QHS PO Last administered on 07/22/18 20:50; Start 07/09/18 at 21:00; Stop 07/23/18 at 17:07; Status DC Fluvoxamine Maleate (Luvox) 100 mg QHS PO Last administered on 08/08/18 19:46 ; Start 07/13/18 at 21:00 Nystatin (Nystop) 1 kita PRN BID PRN TP skin rash Last administered on 19:58; Start 07/14/18 at 21:30 Mirtazapine (Remeron) 15 mg QHS PO Last administered on 08/08/18 19:46; Start 07/23/18 at 21:00 Trazodone HCl (Desyrel) 50 mg PRN QHS PRN PO INSOMNIA Last administered on 08/07 20:47; Start 07/24/18 at 19:00 Divalproex Sodium (Depakote Sprinkles) 125 mg DAILY PO Last administered on 07:45; Start 07/26/18 at 09:00 Divalproex Sodium (Depakote Sprinkles) 250 mg AFTRNOON PO Last administered on 07/28/18 12:10; Start 07/26/18 at 15:00; Stop 07/28/18 at 17:07; Status DC Quetiapine Fumarate (SEROquel) 37.5 mg DAILY@1800 PO Last administered on 16:14; Start 07/27/18 at 18:00; Stop 08/03/18 at 19:31; Status DC Quetiapine Fumarate (SEROquel) 25 mg DAILY PO Last administered on 08/09/18 07 :45; Start 07/27/18 at 09:00 Quetiapine Fumarate (SEROquel) 37.5 mg DAILY@1500 PO Last administered on 15:06; Start 07/27/18 at 15:00; Stop 08/04/18 at 15:19; Status DC Divalproex Sodium (Depakote Sprinkles) 125 mg NOON PO Last administered on 08/09 12:57; Start 07/29/18 at 12:00 Divalproex Sodium (Depakote Sprinkles) 250 mg HS PO Last administered on 19:46; Start 07/28/18 at 21:00 Quetiapine Fumarate (SEROquel) 50 mg DAILY@1500 PO Last administered on 12:57; Start 08/04/18 at 15:00 Quetiapine Fumarate (SEROquel) 37.5 mg 1800 PO Last administered on 08/09/18at 17:42; Start 08/04/18 at 18:00 Trazodone HCl (Desyrel) 100 mg QHS PO Last administered on 08/08/18 19:46; Start 08/08/18 at 21:00 Active Scripts Active Reported Trazodone Hcl 100 Mg Tablet 100 Mg PO HS Trazodone Hcl 50 Mg Tablet 50 Mg PO PRN QHS PRN Fluvoxamine Maleate 100 Mg Cap.er.24h 100 Mg PO HS Seroquel (Quetiapine Fumarate) 25 Mg Tablet 37.5 Mg PO 1800 Seroquel (Quetiapine Fumarate) 50 Mg Tablet 50 Mg PO 1500 Seroquel (Quetiapine Fumarate) 25 Mg Tablet 25 Mg PO HS Zyprexa Zydis (Olanzapine) 5 Mg Tab.rapdis 2.5 Mg PO PRN Q2HR PRN Nystatin 15 Gm Powder 1 Kita TP PRN BID PRN Mirtazapine 15 Mg Tablet 15 Mg PO HS Bengay (Menthol) 113 Gm Gel..gram. 1 Kita TP PRN QID PRN Milk Of Magnesia (Magnesium Hydroxide) 2,400 Mg/10 Ml Oral.susp 2,400 Mg PO PRN QHS PRN Maalox Maximum Strength Susp (Mag Hydrox/Al Hydrox/Simeth) 355 Ml Oral.susp 15 Ml PO PRN AFTMEALHC PRN Depakote Sprinkle (Divalproex Sodium) 125 Mg Cap.sprink 250 Mg PO HS Depakote Sprinkle (Divalproex Sodium) 125 Mg Cap.sprink 125 Mg PO 0900,1200 Bisacodyl 10 Mg/30 Ml Enema 10 Mg RC PRN DAILY PRN Tylenol (Acetaminophen) 325 Mg Tablet 650 Mg PO PRN Q6HRS PRN Tamsulosin Hcl 0.4 Mg Cap.er.24h 0.4 Mg PO DAILY Levothyroxine Sodium 88 Mcg Tablet 88 Mcg PO DAILYAC Escitalopram Oxalate 20 Mg Tablet 20 Mg PO DAILY Rivastigmine (Rivastigmine Tartrate) 1.5 Mg Capsule 1.5 Mg PO BID Namenda Xr (Memantine Hcl) 28 Mg Cap.spr.24 28 Mg PO DAILY I have reviewed the current psychotropics carefully including drug interactions. Risk benefit ratio favors no change other than as noted in my dictated progress note. Diagnosis: Problems: (1) Mental status alteration (2) Anxiety disorder (3) Dementia in Alzheimer's disease with delusions (4) Dementia in Alzheimer's disease with depression (5) Dementia, vascular, with delusions (6) Dementia, vascular, with depression (7) Impulse control disorder MILAN TAYLOR MD Aug 09, 2018 19:40
[2018-08-09] MEDS: MIRTAZAPINE 15 MG TABLET PO SCH (20:09)
[2018-08-09] MEDS: traZODone 100 MG TABLET. PO SCH (20:09)
[2018-08-09] MEDS: traZODone 50 MG TABLET. PO PRN (22:58)
[2018-08-09] MEDS: ACETAMINOPHEN 325 MG TABLET PO PRN (22:58)
[2018-08-10] MEDS: LEVOTHYROXINE 88 MCG TABLET PO SCH (05:52)
[2018-08-10 06:10] VITALS: BP 141/61
[2018-08-10] MEDS: DIVALPROEX 125 MG CAP.SPRINK PO SCH ×3 (07:52→19:55)
[2018-08-10] MEDS: RIVASTIGMINE 3 MG CAPSULE. PO SCH ×2 (07:52→19:54)
[2018-08-10] MEDS: QUEtiapine 25 MG TABLET. PO SCH ×2 (07:52→17:35)
[2018-08-10] MEDS: MEMANTINE 10 MG TABLET. PO SCH ×2 (07:52→19:54)
[2018-08-10] MEDS: TAMSULOSIN 0.4 MG CAP.ER.24H. PO SCH (07:52)
[2018-08-10] MEDS: QUEtiapine 50 MG TABLET. PO SCH (12:46)
[2018-08-10 15:52] VITALS: BP 128/76
--- NOTE | 2018-08-10 18:33 | PN ---
DATE: 08/08/2018 PSYCHIATRIC PROGRESS NOTE This is a late entry 08/08/2018, covers elements not covered in my initial note. SUBJECTIVE: I met with the patient in the evening. The patient slept 6-3/4 hours previous night. At night, he was somewhat agitated, slept through breakfast. REVIEW OF SYSTEMS: No CV, , pulmonary, eye, ENT system symptoms on review. Reliability poor. MENTAL STATUS EXAM: Oriented to himself. Insight, judgment, recent and remote memory, attention, concentration, fund of knowledge poor, consistent with his diagnoses mentioned in my initial note. PLAN: Continue current psychotropics. We will increase the trazodone from 50 mg at bedtime p.r.n., may repeat x 1 to 100 mg at bedtime p.r.n., may repeat with the 50 mg dosage p.r.n. insomnia and anxiety. Rest unchanged. MAN Connie TAYLOR MD DR: NATAN/alfredo JOB#: [id number] / [id number]
--- NOTE | 2018-08-10 18:36 | PN ---
DATE: 08/09/2018 PSYCHIATRIC PROGRESS NOTE This late entry 08/09/2018 covers elements not covered in my initial note. SUBJECTIVE: I met with the patient in the evening and reviewed information from a family member, Snehal regarding the patient's 's vacillations about his placement options including wanting to take him home, which does not seem realistic. He slept 6-3/4 hours previous night, confused, anxious, putting himself on the floor, but no falls. REVIEW OF SYSTEMS: No CV, , pulmonary, eye, ENT system symptoms on review. Reliability poor. MENTAL STATUS EXAM: Oriented to himself. Insight, judgment, recent and remote memory, attention, concentration, fund of knowledge poor, consistent with his diagnosis mentioned in my initial note. PLAN: No change from initial note. MAN Connie TAYLOR MD DR: NATAN/alfredo JOB#: [id number] / [id number]
[2018-08-10] MEDS: traZODone 100 MG TABLET. PO SCH (19:54)
[2018-08-10] MEDS: MIRTAZAPINE 15 MG TABLET PO SCH (19:54)
--- NOTE | 2018-08-10 22:14 | PDOC ---
Exam Note: Justin Note: Please also refer to the separate dictated note~for this date of service dictated separately.~Patient seen individually. Discussed the patient with Nursing staff reviewed the chart.~Reviewed interim history and current functioning. Reviewed vital signs,~Labs/ Radiology~and current medications noted below. Continue current treatment with the changes noted in the dictated addendum note Assessment: Vital Signs: Vital Signs Date Time Temp Pulse Resp B/P (MAP) Pulse Ox O2 Delivery O2 Flow Rate FiO2 08/10/18 15:52 98.8 69 16 128/76 (93) 96 08/08/18 15:40 Room Air I&O Intake and Output 08/10/18 07:00 Intake Total 720 ml Balance 720 ml Intake Oral 720 ml # Voids 1 Current Medications: Meds: Current Medications Lorazepam (Ativan) 2 mg 1X ONCE PO Last administered on 06/17/18 19:54; Start 06/17/18 at 20:15; Stop 06/17/18 at 20:16; Status DC Acetaminophen (Tylenol) 650 mg PRN Q6HRS PRN PO PAIN / TEMP Last administered on 08/09/18 22:58; Start 06/17/18 at 21:30 Multi-Ingredient Ointment (Analgesic [place]) 1 kita PRN QID PRN TP MUSCLE PAIN Last administered on 07/28/18 17:58; Start 06/17/18 at 21:30 Al Hydroxide/Mg Hydroxide (Mylanta Plus Xs) 15 ml PRN AFTMEALHC PRN PO DYSPEPSIA Last administered on 07/09/18 17:03; Start 06/17/18 at 21:30 Magnesium Hydroxide (Milk Of Magnesia) 2,400 mg PRN QHS PRN PO CONSTIPATION Last administered on 08/02/18 17:16; Start 06/17/18 at 21:30 Trazodone HCl (Desyrel) 25 mg PRN QHS PRN PO INSOMNIA Last administered on 23:21; Start 06/17/18 at 21:30; Stop 07/24/18 at 19:00; Status DC Olanzapine (ZyPREXA ZYDIS) 2.5 mg PRN Q2HR PRN PO PSYCHOSIS Last administered on 08/09/18 22:58; Start 06/17/18 at 21:30 Citalopram Hydrobromide (CeleXA) 40 mg DAILY PO Last administered on 06/19/18 08:09; Start 06/18/18 at 09:00; Stop 06/19/18 at 16:58; Status DC Memantine (Namenda) 10 mg BID PO Last administered on 08/10/18 19:54; Start at 09:00 Rivastigmine Tartrate (Exelon) 1.5 mg BIDWMEALS PO Last administered on 07:47; Start 06/18/18 at 08:00; Stop 06/23/18 at 16:38; Status DC Levothyroxine Sodium (Synthroid) 88 mcg DAILYAC PO Last administered on 08:11; Start 06/18/18 at 07:30; Stop 06/19/18 at 17:40; Status DC Tamsulosin HCl (Flomax) 0.4 mg DAILY PO Last administered on 08/10/18 07:52; Start 06/18/18 at 09:00 Hydroxyzine HCl (Atarax) 25 mg PRN Q2HR PRN PO ANXIETY / AGITATION Last administered on 06/21/18 18:40; Start 06/18/18 at 23:00; Stop 06/21/18 at 20:10; Status DC Carbamide Peroxide (Debrox) 5 drop BID AU Last administered on 06/24/18 11:00; Start 06/19/18 at 21:00; Stop 06/24/18 at 20:59; Status DC Mirtazapine (Remeron) 7.5 mg QHS PO Last administered on 06/22/18 19:17; Start 06/19/18 at 21:00; Stop 06/23/18 at 18:12; Status DC Sertraline HCl (Zoloft) 50 mg DAILY PO Last administered on 06/24/18 10:56; Start 06/20/18 at 09:00; Stop 06/24/18 at 18:42; Status DC Quetiapine Fumarate (SEROquel) 12.5 mg 0900,1700 PO Last administered on 16:23; Start 06/19/18 at 17:00; Stop 06/22/18 at 16:55; Status DC Levothyroxine Sodium (Synthroid) 88 mcg DAILY06 PO Last administered on at 05:52; Start 06/20/18 at 06:00 Quetiapine Fumarate (SEROquel) 12.5 mg BID92 PO ; Start 06/23/18 at 09:00; Stop 06/23/18 at 09:00; Status DC Quetiapine Fumarate (SEROquel) 25 mg DAILY@1900 PO ; Start 06/22/18 at 19:00; Stop 06/22/18 at 19:00; Status DC Quetiapine Fumarate (SEROquel) 12.5 mg BID@0900,1500 PO Last administered on 06/24/18at 16:33; Start 06/23/18 at 09:00; Stop 06/24/18 at 18:46; Status DC Quetiapine Fumarate (SEROquel) 25 mg STK-MED ONCE .ROUTE ; Start 06/22/18 at 17: 12; Stop 06/22/18 at 17:14; Status DC Quetiapine Fumarate (SEROquel) 12.5 mg DAILY@1900 PO Last administered on at 18:16; Start 06/22/18 at 19:00; Stop 06/24/18 at 18:46; Status DC Rivastigmine Tartrate (Exelon) 1.5 mg DAILY PO Last administered on 06/24/18at 10 :58; Start 06/24/18 at 09:00; Stop 06/24/18 at 14:14; Status DC Rivastigmine Tartrate (Exelon) 3 mg HS PO ; Start 06/23/18 at 21:00; Stop at 21:00; Status DC Rivastigmine Tartrate (Exelon) 3 mg BIDWMEALS PO Last administered on 06/24/18at 10:54; Start 06/23/18 at 17:00; Stop 06/24/18 at 14:14; Status DC Rivastigmine Tartrate (Exelon) 3 mg HS PO ; Start 06/27/18 at 09:00; Stop at 09:00; Status DC Nystatin (Nystop) 1 kita BID TP Last administered on 07/14/18at 20:58; Start 06/23 at 21:00; Stop 07/14/18 at 21:27; Status DC Mirtazapine (Remeron) 15 mg QHS PO Last administered on 07/08/18at 21:01; Start 06/23/18 at 21:00; Stop 07/09/18 at 17:52; Status DC Nystatin (Nystop) 15 kita STK-MED ONCE TP Last administered on 06/23/18at 19:15; Start 06/23/18 at 19:15; Stop 06/23/18 at 19:17; Status DC Rivastigmine Tartrate (Exelon) 3 mg BID PO Last administered on 08/10/18 19:54 ; Start 06/24/18 at 21:00 Fluvoxamine Maleate (Luvox) 25 mg QHS PO Last administered on 06/25/18at 19:22; Start 06/24/18 at 21:00; Stop 06/26/18 at 19:00; Status DC Fluvoxamine Maleate (Luvox) 50 mg QHS PO Last administered on 06/30/18at 19:36; Start 06/26/18 at 21:00; Stop 07/01/18 at 20:00; Status DC Quetiapine Fumarate (SEROquel) 25 mg DAILY@1900 PO Last administered on 18:48; Start 06/24/18 at 19:00; Stop 07/27/18 at 18:08; Status DC Quetiapine Fumarate (SEROquel) 25 mg BID@0900,1500 PO Last administered on 07/26at 14:46; Start 06/25/18 at 09:00; Stop 07/26/18 at 23:47; Status DC Bisacodyl (Dulcolax Supp) 10 mg PRN DAILY PRN [place] CONSTIPATION Last administered on 06/27/18at 11:54; Start 06/27/18 at 10:30 Fluvoxamine Maleate (Luvox) 75 mg QHS PO Last administered on 07/13/18at 19:16; Start 07/01/18 at 21:00; Stop 07/13/18 at 19:43; Status DC Divalproex Sodium (Depakote Sprinkles) 125 mg BID@0900,1700 PO Last administered on 07/25/18at 18:01; Start 06/30/18 at 17:00; Stop 07/25/18 at 19:50; Status DC Mirtazapine (Remeron) 7.5 mg QHS PO Last administered on 07/22/18 20:50; Start 07/09/18 at 21:00; Stop 07/23/18 at 17:07; Status DC Fluvoxamine Maleate (Luvox) 100 mg QHS PO Last administered on 08/10/18 19:54 ; Start 07/13/18 at 21:00 Nystatin (Nystop) 1 kita PRN BID PRN TP skin rash Last administered on 19:58; Start 07/14/18 at 21:30 Mirtazapine (Remeron) 15 mg QHS PO Last administered on 08/10/18 19:54; Start 07/23/18 at 21:00 Trazodone HCl (Desyrel) 50 mg PRN QHS PRN PO INSOMNIA Last administered on 08/09 22:58; Start 07/24/18 at 19:00 Divalproex Sodium (Depakote Sprinkles) 125 mg DAILY PO Last administered on 07:52; Start 07/26/18 at 09:00 Divalproex Sodium (Depakote Sprinkles) 250 mg AFTRNOON PO Last administered on 07/28/18 12:10; Start 07/26/18 at 15:00; Stop 07/28/18 at 17:07; Status DC Quetiapine Fumarate (SEROquel) 37.5 mg DAILY@1800 PO Last administered on 16:14; Start 07/27/18 at 18:00; Stop 08/03/18 at 19:31; Status DC Quetiapine Fumarate (SEROquel) 25 mg DAILY PO Last administered on 08/10/18 07 :52; Start 07/27/18 at 09:00 Quetiapine Fumarate (SEROquel) 37.5 mg DAILY@1500 PO Last administered on 15:06; Start 07/27/18 at 15:00; Stop 08/04/18 at 15:19; Status DC Divalproex Sodium (Depakote Sprinkles) 125 mg NOON PO Last administered on 08/10 12:46; Start 07/29/18 at 12:00 Divalproex Sodium (Depakote Sprinkles) 250 mg HS PO Last administered on 19:55; Start 07/28/18 at 21:00 Quetiapine Fumarate (SEROquel) 50 mg DAILY@1500 PO Last administered on 12:46; Start 08/04/18 at 15:00 Quetiapine Fumarate (SEROquel) 37.5 mg 1800 PO Last administered on 08/10/18 17:35; Start 08/04/18 at 18:00 Trazodone HCl (Desyrel) 100 mg QHS PO Last administered on 08/10/18 19:54; Start 08/08/18 at 21:00 Active Scripts Active Reported Trazodone Hcl 100 Mg Tablet 100 Mg PO HS Trazodone Hcl 50 Mg Tablet 50 Mg PO PRN QHS PRN Fluvoxamine Maleate 100 Mg Cap.er.24h 100 Mg PO HS Seroquel (Quetiapine Fumarate) 25 Mg Tablet 37.5 Mg PO 1800 Seroquel (Quetiapine Fumarate) 50 Mg Tablet 50 Mg PO 1500 Seroquel (Quetiapine Fumarate) 25 Mg Tablet 25 Mg PO HS Zyprexa Zydis (Olanzapine) 5 Mg Tab.rapdis 2.5 Mg PO PRN Q2HR PRN Nystatin 15 Gm Powder 1 Kita TP PRN BID PRN Mirtazapine 15 Mg Tablet 15 Mg PO HS Bengay (Menthol) 113 Gm Gel..gram. 1 Kita TP PRN QID PRN Milk Of Magnesia (Magnesium Hydroxide) 2,400 Mg/10 Ml Oral.susp 2,400 Mg PO PRN QHS PRN Maalox Maximum Strength Susp (Mag Hydrox/Al Hydrox/Simeth) 355 Ml Oral.susp 15 Ml PO PRN AFTMEALHC PRN Depakote Sprinkle (Divalproex Sodium) 125 Mg Cap.sprink 250 Mg PO HS Depakote Sprinkle (Divalproex Sodium) 125 Mg Cap.sprink 125 Mg PO 0900,1200 Bisacodyl 10 Mg/30 Ml Enema 10 Mg RC PRN DAILY PRN Tylenol (Acetaminophen) 325 Mg Tablet 650 Mg PO PRN Q6HRS PRN Tamsulosin Hcl 0.4 Mg Cap.er.24h 0.4 Mg PO DAILY Levothyroxine Sodium 88 Mcg Tablet 88 Mcg PO DAILYAC Escitalopram Oxalate 20 Mg Tablet 20 Mg PO DAILY Rivastigmine (Rivastigmine Tartrate) 1.5 Mg Capsule 1.5 Mg PO BID Namenda Xr (Memantine Hcl) 28 Mg Cap.spr.24 28 Mg PO DAILY I have reviewed the current psychotropics carefully including drug interactions. Risk benefit ratio favors no change other than as noted in my dictated progress note. Diagnosis: Problems: (1) Mental status alteration (2) Anxiety disorder (3) Dementia in Alzheimer's disease with delusions (4) Dementia in Alzheimer's disease with depression (5) Dementia, vascular, with delusions (6) Dementia, vascular, with depression (7) Impulse control disorder MILAN TAYLOR MD Aug 10, 2018 22:14
[2018-08-11] MEDS: LEVOTHYROXINE 88 MCG TABLET PO SCH (06:02)
[2018-08-11 06:33] VITALS: BP 161/92
[2018-08-11] MEDS: QUEtiapine 25 MG TABLET. PO SCH ×2 (07:26→16:30)
[2018-08-11] MEDS: NYSTATIN TOPICAL POWDER 15GM BOTTLE. TP PRN (07:26)
[2018-08-11] MEDS: RIVASTIGMINE 3 MG CAPSULE. PO SCH ×2 (07:26→19:59)
[2018-08-11] MEDS: MEMANTINE 10 MG TABLET. PO SCH ×2 (07:27→19:59)
[2018-08-11] MEDS: DIVALPROEX 125 MG CAP.SPRINK PO SCH ×3 (07:27→20:00)
[2018-08-11] MEDS: TAMSULOSIN 0.4 MG CAP.ER.24H. PO SCH (07:27)
[2018-08-11] MEDS: QUEtiapine 50 MG TABLET. PO SCH (13:59)
[2018-08-11 16:21] VITALS: BP 108/67
[2018-08-11] MEDS: traZODone 100 MG TABLET. PO SCH (19:59)
[2018-08-11] MEDS: MIRTAZAPINE 15 MG TABLET PO SCH (19:59)
[2018-08-11] MEDS: traZODone 50 MG TABLET. PO PRN (20:00)
--- NOTE | 2018-08-11 21:21 | PN ---
DATE: 08/10/2018 PSYCHIATRIC PROGRESS NOTE This late entry 08/10/2018 covers elements not covered in my initial note. SUBJECTIVE: I met with the patient in the evening. Previous night, the patient had put himself on the floor. There was no fall or injury. He was yelling reportedly until 11:00 p.m. at night, received trazodone x 2. Then, he did alright and during the day on 08/10/2018, he has done better. Remains confused. REVIEW OF SYSTEMS: No CV, , pulmonary, eye, ENT system symptoms on review. Reliability poor. MENTAL STATUS EXAM: Oriented to himself. Insight, judgment, recent and remote memory, attention, concentration, fund of knowledge poor, consistent with his diagnosis mentioned in my initial note. PLAN: No change from initial note and we may need to adjust psychotropics if mood lability persists. MAN Connie TAYLOR MD DR: NATAN/alfredo JOB#: [id number] / [id number]
--- NOTE | 2018-08-11 22:24 | PDOC ---
Exam Note: Justin Note: Please also refer to the separate dictated note~for this date of service dictated separately.~Patient seen individually. Discussed the patient with Nursing staff reviewed the chart.~Reviewed interim history and current functioning. Reviewed vital signs,~Labs/ Radiology~and current medications noted below. Continue current treatment with the changes noted in the dictated addendum note Assessment: Vital Signs: Vital Signs Date Time Temp Pulse Resp B/P (MAP) Pulse Ox O2 Delivery O2 Flow Rate FiO2 08/11/18 16:21 98.6 81 24 108/67 (81) 96 08/11/18 06:33 Room Air I&O Intake and Output 08/11/18 06:59 Intake Total 1200 ml Balance 1200 ml Intake Oral 1200 ml # Voids 1 # Bowel Movements 1 Current Medications: Meds: Current Medications Lorazepam (Ativan) 2 mg 1X ONCE PO Last administered on 06/17/18 19:54; Start 06/17/18 at 20:15; Stop 06/17/18 at 20:16; Status DC Acetaminophen (Tylenol) 650 mg PRN Q6HRS PRN PO PAIN / TEMP Last administered on 08/09/18 22:58; Start 06/17/18 at 21:30 Multi-Ingredient Ointment (Analgesic [place]) 1 kita PRN QID PRN TP MUSCLE PAIN Last administered on 07/28/18 17:58; Start 06/17/18 at 21:30 Al Hydroxide/Mg Hydroxide (Mylanta Plus Xs) 15 ml PRN AFTMEALHC PRN PO DYSPEPSIA Last administered on 07/09/18 17:03; Start 06/17/18 at 21:30 Magnesium Hydroxide (Milk Of Magnesia) 2,400 mg PRN QHS PRN PO CONSTIPATION Last administered on 08/02/18 17:16; Start 06/17/18 at 21:30 Trazodone HCl (Desyrel) 25 mg PRN QHS PRN PO INSOMNIA Last administered on 23:21; Start 06/17/18 at 21:30; Stop 07/24/18 at 19:00; Status DC Olanzapine (ZyPREXA ZYDIS) 2.5 mg PRN Q2HR PRN PO PSYCHOSIS Last administered on 08/11/18 13:59; Start 06/17/18 at 21:30 Citalopram Hydrobromide (CeleXA) 40 mg DAILY PO Last administered on 06/19/18 08:09; Start 06/18/18 at 09:00; Stop 06/19/18 at 16:58; Status DC Memantine (Namenda) 10 mg BID PO Last administered on 08/11/18 19:59; Start at 09:00 Rivastigmine Tartrate (Exelon) 1.5 mg BIDWMEALS PO Last administered on 07:47; Start 06/18/18 at 08:00; Stop 06/23/18 at 16:38; Status DC Levothyroxine Sodium (Synthroid) 88 mcg DAILYAC PO Last administered on 08:11; Start 06/18/18 at 07:30; Stop 06/19/18 at 17:40; Status DC Tamsulosin HCl (Flomax) 0.4 mg DAILY PO Last administered on 08/11/18at 07:27; Start 06/18/18 at 09:00 Hydroxyzine HCl (Atarax) 25 mg PRN Q2HR PRN PO ANXIETY / AGITATION Last administered on 06/21/18 18:40; Start 06/18/18 at 23:00; Stop 06/21/18 at 20:10; Status DC Carbamide Peroxide (Debrox) 5 drop BID AU Last administered on 06/24/18 11:00; Start 06/19/18 at 21:00; Stop 06/24/18 at 20:59; Status DC Mirtazapine (Remeron) 7.5 mg QHS PO Last administered on 06/22/18 19:17; Start 06/19/18 at 21:00; Stop 06/23/18 at 18:12; Status DC Sertraline HCl (Zoloft) 50 mg DAILY PO Last administered on 06/24/18at 10:56; Start 06/20/18 at 09:00; Stop 06/24/18 at 18:42; Status DC Quetiapine Fumarate (SEROquel) 12.5 mg 0900,1700 PO Last administered on 16:23; Start 06/19/18 at 17:00; Stop 06/22/18 at 16:55; Status DC Levothyroxine Sodium (Synthroid) 88 mcg DAILY06 PO Last administered on at 06:02; Start 06/20/18 at 06:00 Quetiapine Fumarate (SEROquel) 12.5 mg BID92 PO ; Start 06/23/18 at 09:00; Stop 06/23/18 at 09:00; Status DC Quetiapine Fumarate (SEROquel) 25 mg DAILY@1900 PO ; Start 06/22/18 at 19:00; Stop 06/22/18 at 19:00; Status DC Quetiapine Fumarate (SEROquel) 12.5 mg BID@0900,1500 PO Last administered on 06/24/18at 16:33; Start 06/23/18 at 09:00; Stop 06/24/18 at 18:46; Status DC Quetiapine Fumarate (SEROquel) 25 mg STK-MED ONCE .ROUTE ; Start 06/22/18 at 17: 12; Stop 06/22/18 at 17:14; Status DC Quetiapine Fumarate (SEROquel) 12.5 mg DAILY@1900 PO Last administered on at 18:16; Start 06/22/18 at 19:00; Stop 06/24/18 at 18:46; Status DC Rivastigmine Tartrate (Exelon) 1.5 mg DAILY PO Last administered on 06/24/18at 10 :58; Start 06/24/18 at 09:00; Stop 06/24/18 at 14:14; Status DC Rivastigmine Tartrate (Exelon) 3 mg HS PO ; Start 06/23/18 at 21:00; Stop at 21:00; Status DC Rivastigmine Tartrate (Exelon) 3 mg BIDWMEALS PO Last administered on 06/24/18at 10:54; Start 06/23/18 at 17:00; Stop 06/24/18 at 14:14; Status DC Rivastigmine Tartrate (Exelon) 3 mg HS PO ; Start 06/27/18 at 09:00; Stop at 09:00; Status DC Nystatin (Nystop) 1 kita BID TP Last administered on 07/14/18at 20:58; Start 06/23 at 21:00; Stop 07/14/18 at 21:27; Status DC Mirtazapine (Remeron) 15 mg QHS PO Last administered on 07/08/18at 21:01; Start 06/23/18 at 21:00; Stop 07/09/18 at 17:52; Status DC Nystatin (Nystop) 15 kita STK-MED ONCE TP Last administered on 06/23/18at 19:15; Start 06/23/18 at 19:15; Stop 06/23/18 at 19:17; Status DC Rivastigmine Tartrate (Exelon) 3 mg BID PO Last administered on 08/11/18at 19:59 ; Start 06/24/18 at 21:00 Fluvoxamine Maleate (Luvox) 25 mg QHS PO Last administered on 06/25/18at 19:22; Start 06/24/18 at 21:00; Stop 06/26/18 at 19:00; Status DC Fluvoxamine Maleate (Luvox) 50 mg QHS PO Last administered on 06/30/18at 19:36; Start 06/26/18 at 21:00; Stop 07/01/18 at 20:00; Status DC Quetiapine Fumarate (SEROquel) 25 mg DAILY@1900 PO Last administered on 18:48; Start 06/24/18 at 19:00; Stop 07/27/18 at 18:08; Status DC Quetiapine Fumarate (SEROquel) 25 mg BID@0900,1500 PO Last administered on 07/26at 14:46; Start 06/25/18 at 09:00; Stop 07/26/18 at 23:47; Status DC Bisacodyl (Dulcolax Supp) 10 mg PRN DAILY PRN ID CONSTIPATION Last administered on 06/27/18at 11:54; Start 06/27/18 at 10:30 Fluvoxamine Maleate (Luvox) 75 mg QHS PO Last administered on 07/13/18at 19:16; Start 07/01/18 at 21:00; Stop 07/13/18 at 19:43; Status DC Divalproex Sodium (Depakote Sprinkles) 125 mg BID@0900,1700 PO Last administered on 07/25/18at 18:01; Start 06/30/18 at 17:00; Stop 07/25/18 at 19:50; Status DC Mirtazapine (Remeron) 7.5 mg QHS PO Last administered on 07/22/18 20:50; Start 07/09/18 at 21:00; Stop 07/23/18 at 17:07; Status DC Fluvoxamine Maleate (Luvox) 100 mg QHS PO Last administered on 08/11/18at 19:59 ; Start 07/13/18 at 21:00 Nystatin (Nystop) 1 kita PRN BID PRN TP skin rash Last administered on 07:26; Start 07/14/18 at 21:30 Mirtazapine (Remeron) 15 mg QHS PO Last administered on 08/11/18 19:59; Start 07/23/18 at 21:00 Trazodone HCl (Desyrel) 50 mg PRN QHS PRN PO INSOMNIA Last administered on 08/11 20:00; Start 07/24/18 at 19:00 Divalproex Sodium (Depakote Sprinkles) 125 mg DAILY PO Last administered on 07:27; Start 07/26/18 at 09:00 Divalproex Sodium (Depakote Sprinkles) 250 mg AFTRNOON PO Last administered on 07/28/18at 12:10; Start 07/26/18 at 15:00; Stop 07/28/18 at 17:07; Status DC Quetiapine Fumarate (SEROquel) 37.5 mg DAILY@1800 PO Last administered on at 16:14; Start 07/27/18 at 18:00; Stop 08/03/18 at 19:31; Status DC Quetiapine Fumarate (SEROquel) 25 mg DAILY PO Last administered on 08/11/18 07 :26; Start 07/27/18 at 09:00 Quetiapine Fumarate (SEROquel) 37.5 mg DAILY@1500 PO Last administered on 15:06; Start 07/27/18 at 15:00; Stop 08/04/18 at 15:19; Status DC Divalproex Sodium (Depakote Sprinkles) 125 mg NOON PO Last administered on 08/11at 11:52; Start 07/29/18 at 12:00 Divalproex Sodium (Depakote Sprinkles) 250 mg HS PO Last administered on at 20:00; Start 07/28/18 at 21:00 Quetiapine Fumarate (SEROquel) 50 mg DAILY@1500 PO Last administered on at 13:59; Start 08/04/18 at 15:00 Quetiapine Fumarate (SEROquel) 37.5 mg 1800 PO Last administered on 08/11/18at 16:30; Start 08/04/18 at 18:00 Trazodone HCl (Desyrel) 100 mg QHS PO Last administered on 08/11/18at 19:59; Start 08/08/18 at 21:00 Active Scripts Active Reported Trazodone Hcl 100 Mg Tablet 100 Mg PO HS Trazodone Hcl 50 Mg Tablet 50 Mg PO PRN QHS PRN Fluvoxamine Maleate 100 Mg Cap.er.24h 100 Mg PO HS Seroquel (Quetiapine Fumarate) 25 Mg Tablet 37.5 Mg PO 1800 Seroquel (Quetiapine Fumarate) 50 Mg Tablet 50 Mg PO 1500 Seroquel (Quetiapine Fumarate) 25 Mg Tablet 25 Mg PO HS Zyprexa Zydis (Olanzapine) 5 Mg Tab.rapdis 2.5 Mg PO PRN Q2HR PRN Nystatin 15 Gm Powder 1 Kita TP PRN BID PRN Mirtazapine 15 Mg Tablet 15 Mg PO HS Bengay (Menthol) 113 Gm Gel..gram. 1 Kita TP PRN QID PRN Milk Of Magnesia (Magnesium Hydroxide) 2,400 Mg/10 Ml Oral.susp 2,400 Mg PO PRN QHS PRN Maalox Maximum Strength Susp (Mag Hydrox/Al Hydrox/Simeth) 355 Ml Oral.susp 15 Ml PO PRN AFTMEALHC PRN Depakote Sprinkle (Divalproex Sodium) 125 Mg Cap.sprink 250 Mg PO HS Depakote Sprinkle (Divalproex Sodium) 125 Mg Cap.sprink 125 Mg PO 0900,1200 Bisacodyl 10 Mg/30 Ml Enema 10 Mg RC PRN DAILY PRN Tylenol (Acetaminophen) 325 Mg Tablet 650 Mg PO PRN Q6HRS PRN Tamsulosin Hcl 0.4 Mg Cap.er.24h 0.4 Mg PO DAILY Levothyroxine Sodium 88 Mcg Tablet 88 Mcg PO DAILYAC Escitalopram Oxalate 20 Mg Tablet 20 Mg PO DAILY Rivastigmine (Rivastigmine Tartrate) 1.5 Mg Capsule 1.5 Mg PO BID Namenda Xr (Memantine Hcl) 28 Mg Cap.spr.24 28 Mg PO DAILY I have reviewed the current psychotropics carefully including drug interactions. Risk benefit ratio favors no change other than as noted in my dictated progress note. Diagnosis: Problems: (1) Mental status alteration (2) Anxiety disorder (3) Dementia in Alzheimer's disease with delusions (4) Dementia in Alzheimer's disease with depression (5) Dementia, vascular, with delusions (6) Dementia, vascular, with depression (7) Impulse control disorder MILAN TAYLOR MD Aug 11, 2018 22:24
[2018-08-12] MEDS: LEVOTHYROXINE 88 MCG TABLET PO SCH (05:37)
[2018-08-12 06:03] VITALS: BP 159/80
[2018-08-12] MEDS: MEMANTINE 10 MG TABLET. PO SCH (08:27)
[2018-08-12] MEDS: DIVALPROEX 125 MG CAP.SPRINK PO SCH ×2 (08:27→13:30)
[2018-08-12] MEDS: TAMSULOSIN 0.4 MG CAP.ER.24H. PO SCH (08:27)
[2018-08-12] MEDS: QUEtiapine 25 MG TABLET. PO SCH (08:27)
[2018-08-12] MEDS: RIVASTIGMINE 3 MG CAPSULE. PO SCH (08:27)
--- NOTE | 2018-08-12 21:02 | PN ---
DATE: 08/11/2018 PSYCHIATRIC PROGRESS NOTE This late entry 08/11/2018 covers elements not covered in my initial note. SUBJECTIVE: I met with the patient in the evening. The patient slept 6 hours previous night. He has been anxious, restless at times, but redirectable. REVIEW OF SYSTEMS: No CV, , pulmonary, eye, ENT system symptoms on review. Reliability poor. MENTAL STATUS EXAM: Oriented to himself. Insight, judgment, recent and remote memory, attention, concentration, fund of knowledge poor consistent with his diagnosis mentioned in my initial note. PLAN: No change from initial note. MAN Connie TAYLOR MD DR: NATAN/alfredo JOB#: [id number] / [id number]
--- NOTE | 2018-08-12 22:12 | PDOC ---
Exam Note: Justin Note: Please also refer to the separate dictated note~for this date of service dictated separately.~Patient seen individually. Discussed the patient with Nursing staff reviewed the chart.~Reviewed interim history and current functioning. Reviewed vital signs,~Labs/ Radiology~and current medications noted below. Continue current treatment with the changes noted in the dictated addendum note Assessment: Vital Signs: Vital Signs Date Time Temp Pulse Resp B/P (MAP) Pulse Ox O2 Delivery O2 Flow Rate FiO2 08/12/18 06:03 98.2 71 20 159/80 (106) 97 08/11/18 06:33 Room Air I&O Intake and Output 08/12/18 06:59 Intake Total 1320 ml Balance 1320 ml Intake Oral 1320 ml Current Medications: Meds: Current Medications Lorazepam (Ativan) 2 mg 1X ONCE PO Last administered on 06/17/18 19:54; Start 06/17/18 at 20:15; Stop 06/17/18 at 20:16; Status DC Acetaminophen (Tylenol) 650 mg PRN Q6HRS PRN PO PAIN / TEMP Last administered on 08/09/18at 22:58; Start 06/17/18 at 21:30; Stop 08/12/18 at 15:12; Status DC Multi-Ingredient Ointment (Analgesic [place]) 1 kita PRN QID PRN TP MUSCLE PAIN Last administered on 07/28/18 17:58; Start 06/17/18 at 21:30; Stop 08/12/18 at 15:12; Status DC Al Hydroxide/Mg Hydroxide (Mylanta Plus Xs) 15 ml PRN AFTMEALHC PRN PO DYSPEPSIA Last administered on 07/09/18 17:03; Start 06/17/18 at 21:30; Stop at 15:12; Status DC Magnesium Hydroxide (Milk Of Magnesia) 2,400 mg PRN QHS PRN PO CONSTIPATION Last administered on 08/02/18 17:16; Start 06/17/18 at 21:30; Stop 08/12/18 at 15:12; Status DC Trazodone HCl (Desyrel) 25 mg PRN QHS PRN PO INSOMNIA Last administered on at 23:21; Start 06/17/18 at 21:30; Stop 07/24/18 at 19:00; Status DC Olanzapine (ZyPREXA ZYDIS) 2.5 mg PRN Q2HR PRN PO PSYCHOSIS Last administered on 08/12/18at 14:00; Start 06/17/18 at 21:30; Stop 08/12/18 at 15:12; Status DC Citalopram Hydrobromide (CeleXA) 40 mg DAILY PO Last administered on 06/19/18 08:09; Start 06/18/18 at 09:00; Stop 06/19/18 at 16:58; Status DC Memantine (Namenda) 10 mg BID PO Last administered on 08/12/18at 08:27; Start at 09:00; Stop 08/12/18 at 15:12; Status DC Rivastigmine Tartrate (Exelon) 1.5 mg BIDWMEALS PO Last administered on at 07:47; Start 06/18/18 at 08:00; Stop 06/23/18 at 16:38; Status DC Levothyroxine Sodium (Synthroid) 88 mcg DAILYAC PO Last administered on at 08:11; Start 06/18/18 at 07:30; Stop 06/19/18 at 17:40; Status DC Tamsulosin HCl (Flomax) 0.4 mg DAILY PO Last administered on 08/12/18at 08:27; Start 06/18/18 at 09:00; Stop 08/12/18 at 15:12; Status DC Hydroxyzine HCl (Atarax) 25 mg PRN Q2HR PRN PO ANXIETY / AGITATION Last administered on 06/21/18at 18:40; Start 06/18/18 at 23:00; Stop 06/21/18 at 20:10; Status DC Carbamide Peroxide (Debrox) 5 drop BID AU Last administered on 06/24/18at 11:00; Start 06/19/18 at 21:00; Stop 06/24/18 at 20:59; Status DC Mirtazapine (Remeron) 7.5 mg QHS PO Last administered on 06/22/18at 19:17; Start 06/19/18 at 21:00; Stop 06/23/18 at 18:12; Status DC Sertraline HCl (Zoloft) 50 mg DAILY PO Last administered on 06/24/18at 10:56; Start 06/20/18 at 09:00; Stop 06/24/18 at 18:42; Status DC Quetiapine Fumarate (SEROquel) 12.5 mg 0900,1700 PO Last administered on at 16:23; Start 06/19/18 at 17:00; Stop 06/22/18 at 16:55; Status DC Levothyroxine Sodium (Synthroid) 88 mcg DAILY06 PO Last administered on at 05:37; Start 06/20/18 at 06:00; Stop 08/12/18 at 15:12; Status DC Quetiapine Fumarate (SEROquel) 12.5 mg BID92 PO ; Start 06/23/18 at 09:00; Stop 06/23/18 at 09:00; Status DC Quetiapine Fumarate (SEROquel) 25 mg DAILY@1900 PO ; Start 06/22/18 at 19:00; Stop 06/22/18 at 19:00; Status DC Quetiapine Fumarate (SEROquel) 12.5 mg BID@0900,1500 PO Last administered on 06/24/18at 16:33; Start 06/23/18 at 09:00; Stop 06/24/18 at 18:46; Status DC Quetiapine Fumarate (SEROquel) 25 mg STK-MED ONCE .ROUTE ; Start 06/22/18 at 17: 12; Stop 06/22/18 at 17:14; Status DC Quetiapine Fumarate (SEROquel) 12.5 mg DAILY@1900 PO Last administered on at 18:16; Start 06/22/18 at 19:00; Stop 06/24/18 at 18:46; Status DC Rivastigmine Tartrate (Exelon) 1.5 mg DAILY PO Last administered on 06/24/18at 10 :58; Start 06/24/18 at 09:00; Stop 06/24/18 at 14:14; Status DC Rivastigmine Tartrate (Exelon) 3 mg HS PO ; Start 06/23/18 at 21:00; Stop at 21:00; Status DC Rivastigmine Tartrate (Exelon) 3 mg BIDWMEALS PO Last administered on 06/24/18at 10:54; Start 06/23/18 at 17:00; Stop 06/24/18 at 14:14; Status DC Rivastigmine Tartrate (Exelon) 3 mg HS PO ; Start 06/27/18 at 09:00; Stop at 09:00; Status DC Nystatin (Nystop) 1 kita BID TP Last administered on 07/14/18at 20:58; Start 06/23 at 21:00; Stop 07/14/18 at 21:27; Status DC Mirtazapine (Remeron) 15 mg QHS PO Last administered on 07/08/18at 21:01; Start 06/23/18 at 21:00; Stop 07/09/18 at 17:52; Status DC Nystatin (Nystop) 15 kita STK-MED ONCE TP Last administered on 06/23/18at 19:15; Start 06/23/18 at 19:15; Stop 06/23/18 at 19:17; Status DC Rivastigmine Tartrate (Exelon) 3 mg BID PO Last administered on 08/12/18at 08:27 ; Start 06/24/18 at 21:00; Stop 08/12/18 at 15:12; Status DC Fluvoxamine Maleate (Luvox) 25 mg QHS PO Last administered on 06/25/18at 19:22; Start 06/24/18 at 21:00; Stop 06/26/18 at 19:00; Status DC Fluvoxamine Maleate (Luvox) 50 mg QHS PO Last administered on 06/30/18at 19:36; Start 06/26/18 at 21:00; Stop 07/01/18 at 20:00; Status DC Quetiapine Fumarate (SEROquel) 25 mg DAILY@1900 PO Last administered on at 18:48; Start 06/24/18 at 19:00; Stop 07/27/18 at 18:08; Status DC Quetiapine Fumarate (SEROquel) 25 mg BID@0900,1500 PO Last administered on 07/26at 14:46; Start 06/25/18 at 09:00; Stop 07/26/18 at 23:47; Status DC Bisacodyl (Dulcolax Supp) 10 mg PRN DAILY PRN [place] CONSTIPATION Last administered on 06/27/18 11:54; Start 06/27/18 at 10:30; Stop 08/12/18 at 15:12 ; Status DC Fluvoxamine Maleate (Luvox) 75 mg QHS PO Last administered on 07/13/18 19:16; Start 07/01/18 at 21:00; Stop 07/13/18 at 19:43; Status DC Divalproex Sodium (Depakote Sprinkles) 125 mg BID@0900,1700 PO Last administered on 07/25/18 18:01; Start 06/30/18 at 17:00; Stop 07/25/18 at 19:50; Status DC Mirtazapine (Remeron) 7.5 mg QHS PO Last administered on 07/22/18 20:50; Start 07/09/18 at 21:00; Stop 07/23/18 at 17:07; Status DC Fluvoxamine Maleate (Luvox) 100 mg QHS PO Last administered on 08/11/18at 19:59 ; Start 07/13/18 at 21:00; Stop 08/12/18 at 15:12; Status DC Nystatin (Nystop) 1 kita PRN BID PRN TP skin rash Last administered on 07:26; Start 07/14/18 at 21:30; Stop 08/12/18 at 15:12; Status DC Mirtazapine (Remeron) 15 mg QHS PO Last administered on 08/11/18 19:59; Start 07/23/18 at 21:00; Stop 08/12/18 at 15:12; Status DC Trazodone HCl (Desyrel) 50 mg PRN QHS PRN PO INSOMNIA Last administered on 08/11 20:00; Start 07/24/18 at 19:00; Stop 08/12/18 at 15:12; Status DC Divalproex Sodium (Depakote Sprinkles) 125 mg DAILY PO Last administered on at 08:27; Start 07/26/18 at 09:00; Stop 08/12/18 at 15:12; Status DC Divalproex Sodium (Depakote Sprinkles) 250 mg AFTRNOON PO Last administered on 07/28/18 12:10; Start 07/26/18 at 15:00; Stop 07/28/18 at 17:07; Status DC Quetiapine Fumarate (SEROquel) 37.5 mg DAILY@1800 PO Last administered on at 16:14; Start 07/27/18 at 18:00; Stop 08/03/18 at 19:31; Status DC Quetiapine Fumarate (SEROquel) 25 mg DAILY PO Last administered on 08/12/18at 08 :27; Start 07/27/18 at 09:00; Stop 08/12/18 at 15:12; Status DC Quetiapine Fumarate (SEROquel) 37.5 mg DAILY@1500 PO Last administered on at 15:06; Start 07/27/18 at 15:00; Stop 08/04/18 at 15:19; Status DC Divalproex Sodium (Depakote Sprinkles) 125 mg NOON PO Last administered on 08/11at 11:52; Start 07/29/18 at 12:00; Stop 08/12/18 at 15:12; Status DC Divalproex Sodium (Depakote Sprinkles) 250 mg HS PO Last administered on at 20:00; Start 07/28/18 at 21:00; Stop 08/12/18 at 15:12; Status DC Quetiapine Fumarate (SEROquel) 50 mg DAILY@1500 PO Last administered on at 13:59; Start 08/04/18 at 15:00; Stop 08/12/18 at 15:12; Status DC Quetiapine Fumarate (SEROquel) 37.5 mg 1800 PO Last administered on 08/11/18at 16:30; Start 08/04/18 at 18:00; Stop 08/12/18 at 15:12; Status DC Trazodone HCl (Desyrel) 100 mg QHS PO Last administered on 08/11/18at 19:59; Start 08/08/18 at 21:00; Stop 08/12/18 at 15:12; Status DC Active Scripts Active Reported Trazodone Hcl 100 Mg Tablet 100 Mg PO HS Trazodone Hcl 50 Mg Tablet 50 Mg PO PRN QHS PRN Fluvoxamine Maleate 100 Mg Cap.er.24h 100 Mg PO HS Seroquel (Quetiapine Fumarate) 25 Mg Tablet 37.5 Mg PO 1800 Seroquel (Quetiapine Fumarate) 50 Mg Tablet 50 Mg PO 1500 Seroquel (Quetiapine Fumarate) 25 Mg Tablet 25 Mg PO HS Zyprexa Zydis (Olanzapine) 5 Mg Tab.rapdis 2.5 Mg PO PRN Q2HR PRN Nystatin 15 Gm Powder 1 Kita TP PRN BID PRN Mirtazapine 15 Mg Tablet 15 Mg PO HS Bengay (Menthol) 113 Gm Gel..gram. 1 Kita TP PRN QID PRN Milk Of Magnesia (Magnesium Hydroxide) 2,400 Mg/10 Ml Oral.susp 2,400 Mg PO PRN QHS PRN Maalox Maximum Strength Susp (Mag Hydrox/Al Hydrox/Simeth) 355 Ml Oral.susp 15 Ml PO PRN AFTMEALHC PRN Depakote Sprinkle (Divalproex Sodium) 125 Mg Cap.sprink 250 Mg PO HS Depakote Sprinkle (Divalproex Sodium) 125 Mg Cap.sprink 125 Mg PO 0900,1200 Bisacodyl 10 Mg/30 Ml Enema 10 Mg RC PRN DAILY PRN Tylenol (Acetaminophen) 325 Mg Tablet 650 Mg PO PRN Q6HRS PRN Tamsulosin Hcl 0.4 Mg Cap.er.24h 0.4 Mg PO DAILY Levothyroxine Sodium 88 Mcg Tablet 88 Mcg PO DAILYAC Rivastigmine (Rivastigmine Tartrate) 1.5 Mg Capsule 3 Mg PO BID Namenda Xr (Memantine Hcl) 28 Mg Cap.spr.24 28 Mg PO DAILY I have reviewed the current psychotropics carefully including drug interactions. Risk benefit ratio favors no change other than as noted in my dictated progress note. Diagnosis: Problems: (1) Anxiety disorder (2) Dementia in Alzheimer's disease with delusions (3) Dementia in Alzheimer's disease with depression (4) Dementia, vascular, with delusions (5) Dementia, vascular, with depression (6) Impulse control disorder MILAN TAYLOR MD Aug 12, 2018 22:12
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
== END 2018-08-12 14:45 | DRG 57 ==
LOC: ER 17:21 → GEROPSY 20:26
PROVIDERS: ADMIT Psychiatry & Neurology Psychiatry; ATTEND Psychiatry & Neurology Psychiatry
DX: G30.9 Alzheimer's disease, unspecified (principal); F01.51 Vascular dementia, unspecified severity, with behavioral disturbance; F05 Delirium due to known physiological condition; F32.9 Major depressive disorder, single episode, unspecified; F22 Delusional disorders; F41.9 Anxiety disorder, unspecified; F63.9 Impulse disorder, unspecified; L89.309 Pressure ulcer of unspecified buttock, unspecified stage; Z88.8 Allergy status to other drugs, medicaments and biological substances; E03.9 Hypothyroidism, unspecified; H54.7 Unspecified visual loss; H90.5 Unspecified sensorineural hearing loss; I10 Essential (primary) hypertension; I25.10 Atherosclerotic heart disease of native coronary artery without angina pectoris; N40.0 Benign prostatic hyperplasia without lower urinary tract symptoms; R63.3 Feeding difficulties; Z91.81 History of falling; Z91.83 Wandering in diseases classified elsewhere; Z95.1 Presence of aortocoronary bypass graft; Z87.440 Personal history of urinary (tract) infections
CPT/HCPCS: 36415; 70450; 71045; 80048; 80053; 80061; 80164; 81001; 82306; 82607; 83036; 83540; 83550; 83735; 84436; 84443; 84480; 84484; 85025; 86592; 93005; 97116; 97530; 97535; 99285-25

== ENCOUNTER 2018-09-22 17:54 | Inpatient (IN) | payer MEDICARE, BC ==
[~2018-09-22] VITALS: Ht 177.8 cm; Wt 76.9 kg
[~2018-09-22 17:54] MED LIST: ACET325T9 PO; BISA10EN RC; DIVA125C2 PO; ESCITALOPRAM OX20 MG PO; FLUV100C PO; LEVO88TA4 PO; MAG355OR12 PO; MAGN2400 PO; MEMA28CA PO; MENT113G6 TP; MIRT15TA3 PO; NYST15PO9 TP; OLAN5TAB5 PO; QUET25TA5 PO; QUET50TA5 PO; RIVA1.5C4 PO; TAMS0.4C2 PO; TRAZ-120 PO; TRAZ-86 PO
--- NOTE | 2018-09-22 18:10 | PHYS DOC ---
Past History Past Medical History: Anxiety, Dementia, Hypertension, Hypothyroid (MATILDE LAGOS MD) Past Surgical History: No Surgical History (MATILDE LAGOS MD) Alcohol Use: None Drug Use: None (MATILDE LAGOS MD) Adult General Chief Complaint Chief Complaint: PSYCH EVALUATION HPI HPI Patient is a 78 year old male who presents to the emergency department for medical clearance. The patient has been accepted to the [facility] here at [facility] by Dr. London. Patient has history of dementia and anxiety. Has had reported aggressive behavior at his current [facility] in [place], [place]. Patient currently has no complaints. Per routine, the patient is to be evaluated and provided medical clearance prior to his admission into the [facility] unit. Previously admitted to the [facility] unit on June 17, 2018 and discharged on August 12, 2018. (MATILDE LAGOS MD) Review of Systems Review of Systems Caveat: Patient demented, poor historian Constitutional: Denies fever or chills [] Eyes: Denies change in visual acuity, redness, or eye pain [] HENT: Denies nasal congestion or sore throat [] Respiratory: Denies cough or shortness of breath [] Cardiovascular: No additional information not addressed in HPI [] GI: Denies abdominal pain, nausea, vomiting, bloody stools or diarrhea [] : Denies dysuria or hematuria [] Musculoskeletal: Denies back pain or joint pain [] Integument: Denies rash or skin lesions [] Neurologic: Denies headache, focal weakness or sensory changes [] All other systems were reviewed and found to be within normal limits, except as documented in this note. (MATILDE LAGOS MD) Allergies Allergies Allergies Coded Allergies Type Severity Reaction Last Updated Verified rivastigmine Allergy Mild 06/17/18 Yes adhesive tape Allergy Unknown redness and itching in area applied. 06/21/18 Yes (MATILDE LAGOS MD) Physical Exam Physical Exam Constitutional: Alert, afebrile, no acute distress. [] HENT: Normocephalic, atraumatic, bilateral external ears normal, oropharynx moist, no oral exudates, nose normal. [] Eyes: PERRLA, EOMI, conjunctiva normal, no discharge. [] Neck: Normal range of motion, no tenderness, supple, no stridor. [] Cardiovascular:Heart rate regular rhythm, no murmur [] Lungs & Thorax: Bilateral breath sounds clear to auscultation [] Abdomen: Bowel sounds normal, soft, no tenderness, no masses, no pulsatile masses. [] Skin: Warm, dry, no erythema, no rash. [] Back: No tenderness, no CVA tenderness. [] Extremities: No tenderness, no cyanosis, no clubbing, ROM intact, no edema. [] Neurologic: Alert, disoriented to time and events, normal motor function, normal sensory function, no focal deficits noted. [] (MATILDE LAGOS MD) Physical Exam Constitutional: Alert, no acute distress. []] Cardiovascular: Heart rate regular rhythm Lungs & Thorax: Equal bilateral breath sounds, no distress Abdomen: Soft, no tenderness Neurologic: Alert to name only, no focal deficits appreciated (FRANNY SOTO DO) Current Patient Data Vital Signs Vital Signs Date Time Temp Pulse Resp B/P (MAP) Pulse Ox O2 Delivery O2 Flow Rate FiO2 09/22/18 18:05 98.4 58 18 96 Room Air Lab Results Laboratory Tests Test 09/22/18 18:02 White Blood Count 6.0 x10^3/uL Red Blood Count 3.77 x10^6/uL Hemoglobin 11.9 g/dL Hematocrit 35.0 % Mean Corpuscular Volume 93 fL Mean Corpuscular Hemoglobin 32 pg Mean Corpuscular Hemoglobin Concent 34 g/dL Red Cell Distribution Width 14.4 % Platelet Count 189 x10^3/uL Neutrophils (%) (Auto) 54 % Lymphocytes (%) (Auto) 30 % Monocytes (%) (Auto) 13 % Eosinophils (%) (Auto) 3 % Basophils (%) (Auto) 0 % Neutrophils # (Auto) 3.2 x10^3uL Lymphocytes # (Auto) 1.8 x10^3/uL Monocytes # (Auto) 0.8 x10^3/uL Eosinophils # (Auto) 0.2 x10^3/uL Basophils # (Auto) 0.0 x10^3/uL Urine Collection Type Unknown Urine Color Yellow Urine Clarity Hazy Urine pH 7.0 Urine Specific [place] 1.020 Urine Protein Trace Urine Glucose (UA) Neg mg/dL Urine Ketones (Stick) Trace mg/dL Urine Blood Neg Urine Nitrite Neg Urine Bilirubin Neg Urine Urobilinogen Dipstick 1 mg/dL Urine Leukocyte Esterase Neg Urine RBC 0 /HPF Urine WBC 1-4 /HPF Urine Squamous Epithelial Cells Occ /LPF Urine Bacteria 0 /HPF Urine Hyaline Casts Occ /HPF Urine Mucus Mod /LPF (MATILDE LAGOS MD) EKG EKG Interpreted by me: Heart rate 59, sinus rhythm, normal intervals, normal axis, no acute ST/T-wave abnormalities present[] (MATILDE LAGOS MD) Radiology/Procedures Radiology/Procedures Not performed[] (MATILDE LAGOS MD) Course & Med Decision Making Course & Med Decision Making Pertinent Labs and Imaging studies reviewed. (See chart for details) Pending metabolic panel and the emergency department. If this is unremarkable, I expect the patient to be medically cleared for psychiatric admission. This will be followed up by Dr. Soto who accepted care of patient at 1899.[] (MATILDE LAGOS MD) Course & Med Decision Making 1899- Sign out received from Dr. Lagos for patient presenting from [facility] for medical clearance for [facility]. Labs pending. Patient seen and evaluated by myself. Labs reviewed. Creat slightly elevated from baseline ( Creat baseline 1.2, now 1.4) Patient stable for admission to [facility]. (FRANNY SOTO DO) Dragon Disclaimer Dragon Disclaimer This electronic medical record was generated, in whole or in part, using a voice recognition dictation system. (MATILDE LAGOS MD) Departure Departure: Impression: Primary Impression: Medical clearance for psychiatric admission Disposition: ADMITTED INPATIENT ([facility]) Condition: STABLE Referrals: LAURA LEONARDO MD (PCP) MATILDE LAGOS MD Sep 22, 2018 18:10 FRANNY SOTO DO Sep 22, 2018 20:02
[2018-09-22 18:30] LABS: BASO % 0 % (0-3); EOS # 0.2 x10^3/uL (0.0-0.7); EOS % 3 % (0-3); HEMOGLOBIN 11.9 g/dL (13.0-17.5); LYMPH # 1.8 x10^3/uL (1.0-4.8); LYMPH % 30 % (24-48); MEAN CORPUSCULAR HEMOGLOBIN 32 pg (25-35); MEAN CORPUSCULAR HGB CONC 34 g/dL (31-37); MEAN CORPUSCULAR VOLUME 93 fL (79-100); MONO # 0.8 x10^3/uL (0.0-1.1); MONO % 13 % (0-9); NEUT # 3.2 x10^3uL (1.8-7.7); NEUT % 54 % (31-73); PLATELET COUNT 189 x10^3/uL (140-400); RED BLOOD COUNT 3.77 x10^6/uL (4.30-5.70); RED CELL DISTRIBUTION WIDTH 14.4 % (11.5-14.5)
[2018-09-22 18:44] LABS: ALBUMIN 3.2 g/dL (3.4-5.0); ALBUMIN/GLOBULIN RATIO 0.7 (1.0-1.7); MAGNESIUM 1.9 mg/dL (1.8-2.4); TOTAL PROTEIN 7.9 g/dL (6.4-8.2)
[2018-09-22 18:45] LABS: BILIRUBIN,URINE NEG (NEG); CLARITY,URINE HAZY; COLOR,URINE YELLOW; GLUCOSE,URINE NEG (NEG)
[2018-09-22 18:46] LABS: BACTERIA,URINE 0 /HPF (0-FEW); HYALINE CASTS, URINE OCC /HPF; NITRITE,URINE NEG (NEG); RBC,URINE 0 /HPF (0-2); SQUAMOUS EPITHELIAL CELL,UR OCC /LPF; UROBILINOGEN,URINE 1 mg/dL (0.2 mg/dL)
[2018-09-22 19:13] LABS: TOTAL BILIRUBIN 0.5 mg/dL (0.2-1.0)
[2018-09-22 19:37] LABS: CALCIUM 8.9 mg/dL (8.5-10.1); CREATININE 1.4 mg/dL (0.7-1.3); POTASSIUM 4.3 mmol/L (3.5-5.1)
[2018-09-22] MEDS ORDERED: MEMA10TA PO (21:23)
[2018-09-22] MEDS ORDERED: ACETAMINOPHEN 325 MG TABLET PO PRN ×2 (21:30→22:00)
[2018-09-22] MEDS ORDERED: MAG HYDROX/AL HYDROX/SIMETH 30 ML ORAL.SUSP PO PRN ×3 (21:30→23:00)
[2018-09-22] MEDS ORDERED: MAGNESIUM HYDROXIDE 2,400 MG/30 ML ORAL.SUSP. PO PRN ×3 (21:30→23:00)
[2018-09-22] MEDS ORDERED: METHYL SALICYLATE/MENTHOL TOPICAL OINTMENT 29GM TUBE. TP PRN ×3 (21:30→23:00)
[2018-09-22] MEDS ORDERED: BISACODYL 10 MG/30 ML ENEMA RC PRN (22:00)
[2018-09-22 22:06] LABS: VAL ACID 23 mcg/mL (50-100)
--- NOTE | 2018-09-22 22:31 | PDOC ---
Exam Note: Justin Note: Please also refer to the separate dictated note~for this date of service dictated separately. Discussed the patient with Nursing staff reviewed the chart.~Reviewed interim history and current functioning. Reviewed vital signs,~ Labs/ Radiology~and current medications noted below. Continue current treatment with the changes noted in the dictated addendum note Assessment: Vital Signs: Vital Signs Date Time Temp Pulse Resp B/P (MAP) Pulse Ox O2 Delivery O2 Flow Rate FiO2 09/22/18 18:05 98.4 58 18 96 Room Air Labs: Laboratory Tests Test 09/22/18 18:02 09/22/18 18:13 White Blood Count 6.0 x10^3/uL (4.0-11.0) Red Blood Count 3.77 x10^6/uL (4.30-5.70) L Hemoglobin 11.9 g/dL (13.0-17.5) L Hematocrit 35.0 % (39.0-53.0) L Mean Corpuscular Volume 93 fL (79-100) Mean Corpuscular Hemoglobin 32 pg (25-35) Mean Corpuscular Hemoglobin Concent 34 g/dL (31-37) Red Cell Distribution Width 14.4 % (11.5-14.5) Platelet Count 189 x10^3/uL (140-400) Neutrophils (%) (Auto) 54 % (31-73) Lymphocytes (%) (Auto) 30 % (24-48) Monocytes (%) (Auto) 13 % (0-9) H Eosinophils (%) (Auto) 3 % (0-3) Basophils (%) (Auto) 0 % (0-3) Neutrophils # (Auto) 3.2 x10^3uL (1.8-7.7) Lymphocytes # (Auto) 1.8 x10^3/uL (1.0-4.8) Monocytes # (Auto) 0.8 x10^3/uL (0.0-1.1) Eosinophils # (Auto) 0.2 x10^3/uL (0.0-0.7) Basophils # (Auto) 0.0 x10^3/uL (0.0-0.2) Urine Collection Type Unknown Urine Color Yellow Urine Clarity Hazy Urine pH 7.0 Urine Specific [place] 1.020 Urine Protein Trace (NEG-TRACE) Urine Glucose (UA) Neg mg/dL (NEG) Urine Ketones (Stick) Trace mg/dL (NEG) Urine Blood Neg (NEG) Urine Nitrite Neg (NEG) Urine Bilirubin Neg (NEG) Urine Urobilinogen Dipstick 1 mg/dL (0.2 mg/dL) Urine Leukocyte Esterase Neg (NEG) Urine RBC 0 /HPF (0-2) Urine WBC 1-4 /HPF (0-4) Urine Squamous Epithelial Cells Occ /LPF Urine Bacteria 0 /HPF (0-FEW) Urine Hyaline Casts Occ /HPF Urine Mucus Mod /LPF Sodium Level 141 mmol/L (136-145) Potassium Level 4.3 mmol/L (3.5-5.1) Chloride Level 106 mmol/L (98-107) Carbon Dioxide Level 27 mmol/L (21-32) Anion Gap 8 (6-14) Blood Urea Nitrogen 32 mg/dL (8-26) H Creatinine 1.4 mg/dL (0.7-1.3) H Estimated GFR (Cockcroft-Gault) 49.0 BUN/Creatinine Ratio 23 (6-20) H Glucose Level 91 mg/dL (70-99) Calcium Level 8.9 mg/dL (8.5-10.1) Magnesium Level 1.9 mg/dL (1.8-2.4) Total Bilirubin 0.5 mg/dL (0.2-1.0) Aspartate Amino Transferase (AST) 20 U/L (15-37) Alanine Aminotransferase (ALT) 23 U/L (16-63) Alkaline Phosphatase 89 U/L (46-116) Total Protein 7.9 g/dL (6.4-8.2) Albumin 3.2 g/dL (3.4-5.0) L Albumin/Globulin Ratio 0.7 (1.0-1.7) L Valproic Acid Level 23 mcg/mL (50-100) L Valproic Acid Last Dose Date 09/22/18 Valproic Acid Last Dose Time 0900 Current Medications: Meds: Current Medications Acetaminophen (Tylenol) 650 mg PRN Q6HRS PRN PO PAIN / TEMP; Start 09/22/18 at 21:30 Multi-Ingredient Ointment (Analgesic [place]) 1 kita PRN QID PRN TP MUSCLE PAIN; Start 09/22/18 at 21:30 Al Hydroxide/Mg Hydroxide (Mylanta Plus Xs) 15 ml PRN AFTMEALHC PRN PO DYSPEPSIA; Start 09/22/18 at 21:30 Magnesium Hydroxide (Milk Of Magnesia) 2,400 mg PRN QHS PRN PO CONSTIPATION; Start 09/22/18 at 21:30 Olanzapine (ZyPREXA ZYDIS) 5 mg PRN Q2HR PRN PO PSYCHOSIS; Start 09/22/18 at 22: 00; Status UNV Non-Formulary Medication (Divalproex Sodium (Depakote Sprinkle)) 125 mg 0900, 1200 PO ; Start 09/23/18 at 09:00; Status UNV Non-Formulary Medication (Divalproex Sodium (Depakote Sprinkle)) 250 mg HS PO ; Start 09/23/18 at 21:00; Status UNV Non-Formulary Medication (Fluvoxamine Maleate ) 100 mg HS PO ; Start 09/23/18 at 21:00; Status UNV Non-Formulary Medication (Memantine Hcl (Namenda)) 10 mg BID PO ; Start at 09:00; Status UNV Non-Formulary Medication (Mirtazapine ) 15 mg HS PO ; Start 09/23/18 at 21:00; Status UNV Non-Formulary Medication (Quetiapine Fumarate (Seroquel)) 25 mg DAILY PO ; Start 09/23/18 at 09:00; Status UNV Non-Formulary Medication (Quetiapine Fumarate (Seroquel)) 37.5 mg 1800 PO ; Start 09/23/18 at 18:00; Status UNV Non-Formulary Medication (Quetiapine Fumarate (Seroquel)) 50 mg 1500 PO ; Start 09/23/18 at 15:00; Status UNV Non-Formulary Medication (Rivastigmine Tartrate (Rivastigmine)) 3 mg BID PO ; Start 09/23/18 at 09:00; Status UNV Non-Formulary Medication (Trazodone Hcl ) 100 mg HS PO ; Start 09/23/18 at 21:00 ; Status UNV Acetaminophen (Tylenol) 650 mg PRN Q6HRS PRN PO PAIN / TEMP; Start 09/22/18 at 22:00; Status UNV Bisacodyl (Fleet Bisacodyl) 10 mg PRN DAILY PRN RC CONSTIPATION; Start 09/22/18 at 22:00; Status UNV Levothyroxine Sodium (Synthroid) 88 mcg DAILYAC PO ; Start 09/23/18 at 07:30; Status UNV Al Hydroxide/Mg Hydroxide (Mylanta Plus Xs) 15 ml PRN AFTMEALHC PRN PO DYSPEPSIA; Start 09/22/18 at 22:00; Status UNV Tamsulosin HCl (Flomax) 0.4 mg DAILY PO ; Start 09/23/18 at 09:00; Status UNV Non-Formulary Medication (Magnesium Hydroxide (Milk Of Magnesia)) 2,400 mg PRN QHS PRN PO CONSTIPATION; Start 09/22/18 at 22:00; Status UNV Non-Formulary Medication (Menthol (Bengay)) 1 kita PRN QID PRN TP PAIN / TEMP; Start 09/22/18 at 22:00; Status UNV Active Scripts Active Reported Namenda (Memantine Hcl) 10 Mg Tablet 10 Mg PO BID Trazodone Hcl 100 Mg Tablet 100 Mg PO HS Fluvoxamine Maleate 100 Mg Cap.er.24h 100 Mg PO HS Seroquel (Quetiapine Fumarate) 25 Mg Tablet 37.5 Mg PO 1800 Seroquel (Quetiapine Fumarate) 50 Mg Tablet 50 Mg PO 1500 Seroquel (Quetiapine Fumarate) 25 Mg Tablet 25 Mg PO DAILY Zyprexa Zydis (Olanzapine) 5 Mg Tab.rapdis 5 Mg PO PRN Q2HR PRN Mirtazapine 15 Mg Tablet 15 Mg PO HS Bengay (Menthol) 113 Gm Gel..gram. 1 Kita TP PRN QID PRN Milk Of Magnesia (Magnesium Hydroxide) 2,400 Mg/10 Ml Oral.susp 2,400 Mg PO PRN QHS PRN Maalox Maximum Strength Susp (Mag Hydrox/Al Hydrox/Simeth) 355 Ml Oral.susp 15 Ml PO PRN AFTMEALHC PRN Depakote Sprinkle (Divalproex Sodium) 125 Mg Cap.sprink 250 Mg PO HS Depakote Sprinkle (Divalproex Sodium) 125 Mg Cap.sprink 125 Mg PO 0900,1200 Bisacodyl 10 Mg/30 Ml Enema 10 Mg RC PRN DAILY PRN Tylenol (Acetaminophen) 325 Mg Tablet 650 Mg PO PRN Q6HRS PRN Tamsulosin Hcl 0.4 Mg Cap.er.24h 0.4 Mg PO DAILY Levothyroxine Sodium 88 Mcg Tablet 88 Mcg PO DAILYAC Rivastigmine (Rivastigmine Tartrate) 1.5 Mg Capsule 3 Mg PO BID I have reviewed the current psychotropics carefully including drug interactions. Risk benefit ratio favors no change other than as noted in my dictated progress note. Diagnosis: Problems: (1) Anxiety disorder (2) Dementia in Alzheimer's disease with delusions (3) Dementia in Alzheimer's disease with depression (4) Dementia, vascular, with delusions (5) Dementia, vascular, with depression (6) Impulse control disorder MILAN TAYLOR MD Sep 22, 2018 22:31
[2018-09-22 23:22] VITALS: BP 152/98
[2018-09-23] MEDS: LEVOTHYROXINE 88 MCG TABLET PO SCH (05:43)
[2018-09-23 05:56] VITALS: BP 136/94
[2018-09-23] MEDS: RIVASTIGMINE 3 MG CAPSULE. PO SCH ×2 (08:03→19:41)
[2018-09-23] MEDS: TAMSULOSIN 0.4 MG CAP.ER.24H. PO SCH (08:03)
[2018-09-23] MEDS: QUEtiapine 25 MG TABLET. PO SCH ×2 (08:03→17:24)
[2018-09-23] MEDS: MEMANTINE 10 MG TABLET. PO SCH ×2 (08:03→19:41)
[2018-09-23] MEDS: DIVALPROEX 125 MG CAP.SPRINK PO SCH ×2 (08:03→14:19)
--- NOTE | 2018-09-23 11:03 | EKG ---
[address] [address] Test Date: 2018-09-22 Test Time: 18:09:11 Pat Name: CRISTINA VALENCIA Department: Room: [address] [place] [address] Gender: M [employer]: AMADO : [id number] Requested By: MATILDE LAGOS Order Number: [id number] Reading MD: Ernie Harrison MD Measurements Intervals [place] Rate: 59 P: 27 NH: 170 QRS: 7 QRSD: 86 T: 38 QT: 404 QTc: 404 Interpretive Statements SINUS RHYTHM NON-SPECIFIC ST/T CHANGES Electronically Signed On 10-05-2018 9:48:24 CDT by Ernie Harrison MD
[2018-09-23 13:44] LABS: THYROID STIM HORMONE (TSH) 1.913 uIU/mL (0.358-3.740)
[2018-09-23] MEDS: QUEtiapine 50 MG TABLET. PO SCH (14:19)
[2018-09-23 16:36] VITALS: BP 149/70
[2018-09-23 17:08] LABS: THYROXINE 6.4 ug/dL (4.5-12.0)
[2018-09-23] MEDS: traZODone 100 MG TABLET. PO SCH (19:43)
[2018-09-23] MEDS: MIRTAZAPINE 15 MG TABLET PO SCH (19:44)
[2018-09-23] MEDS ORDERED: DIVALPROEX 125 MG CAP.SPRINK PO SCH (21:00)
--- NOTE | 2018-09-23 22:35 | PDOC ---
Exam Note: Justin Note: Please also refer to the separate dictated note~for this date of service dictated separately.~Patient seen individually. Discussed the patient with Nursing staff reviewed the chart.~Reviewed interim history and current functioning. Reviewed vital signs,~Labs/ Radiology~and current medications noted below. Continue current treatment with the changes noted in the dictated addendum note Assessment: Vital Signs: Vital Signs Date Time Temp Pulse Resp B/P (MAP) Pulse Ox O2 Delivery O2 Flow Rate FiO2 09/23/18 16:36 97.6 88 20 149/70 (96) 95 09/22/18 18:05 Room Air I&O Intake and Output 09/23/18 07:00 Intake Total 120 ml Balance 120 ml Intake Oral 120 ml # Voids 1 Current Medications: Meds: Current Medications Acetaminophen (Tylenol) 650 mg PRN Q6HRS PRN PO PAIN / TEMP; Start 09/22/18 at 21:30; Stop 09/22/18 at 22:50; Status DC Multi-Ingredient Ointment (Analgesic [place]) 1 kita PRN QID PRN TP MUSCLE PAIN; Start 09/22/18 at 21:30; Stop 09/22/18 at 22:50; Status DC Al Hydroxide/Mg Hydroxide (Mylanta Plus Xs) 15 ml PRN AFTMEALHC PRN PO DYSPEPSIA; Start 09/22/18 at 21:30; Stop 09/22/18 at 22:50; Status DC Magnesium Hydroxide (Milk Of Magnesia) 2,400 mg PRN QHS PRN PO CONSTIPATION; Start 09/22/18 at 21:30; Stop 09/22/18 at 22:50; Status DC Olanzapine (ZyPREXA ZYDIS) 5 mg PRN Q2HR PRN PO PSYCHOSIS Last administered on 09/23/18 19:44; Start 09/22/18 at 22:00 Divalproex Sodium (Depakote Sprinkles) 125 mg 0900,1200 PO Last administered on 09/23/18 14:19; Start 09/23/18 at 09:00 Divalproex Sodium (Depakote Sprinkles) 250 mg HS PO Last administered on 19:44; Start 09/23/18 at 21:00 Fluvoxamine Maleate (Luvox) 100 mg HS PO Last administered on 09/23/18 19:43; Start 09/23/18 at 21:00 Memantine (Namenda) 10 mg BID PO Last administered on 09/23/18 19:41; Start at 09:00 Mirtazapine (Remeron) 15 mg HS PO Last administered on 09/23/18 19:44; Start 09/23/18 at 21:00 Quetiapine Fumarate (SEROquel) 25 mg DAILY PO Last administered on 09/23/18 08 :03; Start 09/23/18 at 09:00 Quetiapine Fumarate (SEROquel) 37.5 mg 1800 PO Last administered on 09/23/18 17:24; Start 09/23/18 at 18:00 Quetiapine Fumarate (SEROquel) 50 mg 1500 PO Last administered on 09/23/18 14: 19; Start 09/23/18 at 15:00 Rivastigmine Tartrate (Exelon) 3 mg BID PO Last administered on 09/23/18 19:41 ; Start 09/23/18 at 09:00 Trazodone HCl (Desyrel) 100 mg HS PO Last administered on 09/23/18 19:43; Start 09/23/18 at 21:00 Acetaminophen (Tylenol) 650 mg PRN Q6HRS PRN PO PAIN / TEMP; Start 09/22/18 at 22:00; Status Cancel Bisacodyl (Fleet Bisacodyl) 10 mg PRN DAILY PRN RC CONSTIPATION; Start 09/22/18 at 22:00 Levothyroxine Sodium (Synthroid) 88 mcg DAILY06 PO Last administered on 05:43; Start 09/23/18 at 06:00 Al Hydroxide/Mg Hydroxide (Mylanta Plus Xs) 15 ml PRN AFTMEALHC PRN PO DYSPEPSIA; Start 09/22/18 at 22:00; Status Cancel Tamsulosin HCl (Flomax) 0.4 mg DAILY PO Last administered on 09/23/18 08:03; Start 09/23/18 at 09:00 Magnesium Hydroxide (Milk Of Magnesia) 2,400 mg PRN QHS PRN PO CONSTIPATION; Start 09/22/18 at 22:00; Status Cancel Multi-Ingredient Ointment (Analgesic [place]) 1 kita PRN QID PRN TP PAIN / TEMP; Start 09/22/18 at 22:00; Status Cancel Acetaminophen (Tylenol) 650 mg PRN Q6HRS PRN PO PAIN / TEMP; Start 09/22/18 at 23:00 Al Hydroxide/Mg Hydroxide (Mylanta Plus Xs) 15 ml PRN AFTMEALHC PRN PO DYSPEPSIA; Start 09/22/18 at 23:00 Magnesium Hydroxide (Milk Of Magnesia) 2,400 mg PRN QHS PRN PO CONSTIPATION; Start 09/22/18 at 23:00 Multi-Ingredient Ointment (Analgesic [place]) 1 kita PRN QID PRN TP PAIN / TEMP; Start 09/22/18 at 23:00 Active Scripts Active Reported Namenda (Memantine Hcl) 10 Mg Tablet 10 Mg PO BID Trazodone Hcl 100 Mg Tablet 100 Mg PO HS Fluvoxamine Maleate 100 Mg Cap.er.24h 100 Mg PO HS Seroquel (Quetiapine Fumarate) 25 Mg Tablet 37.5 Mg PO 1800 Seroquel (Quetiapine Fumarate) 50 Mg Tablet 50 Mg PO 1500 Seroquel (Quetiapine Fumarate) 25 Mg Tablet 25 Mg PO DAILY Zyprexa Zydis (Olanzapine) 5 Mg Tab.rapdis 5 Mg PO PRN Q2HR PRN Mirtazapine 15 Mg Tablet 15 Mg PO HS Bengay (Menthol) 113 Gm Gel..gram. 1 Kita TP PRN QID PRN Milk Of Magnesia (Magnesium Hydroxide) 2,400 Mg/10 Ml Oral.susp 2,400 Mg PO PRN QHS PRN Maalox Maximum Strength Susp (Mag Hydrox/Al Hydrox/Simeth) 355 Ml Oral.susp 15 Ml PO PRN AFTMEALHC PRN Depakote Sprinkle (Divalproex Sodium) 125 Mg Cap.sprink 250 Mg PO HS Depakote Sprinkle (Divalproex Sodium) 125 Mg Cap.sprink 125 Mg PO 0900,1200 Bisacodyl 10 Mg/30 Ml Enema 10 Mg RC PRN DAILY PRN Tylenol (Acetaminophen) 325 Mg Tablet 650 Mg PO PRN Q6HRS PRN Tamsulosin Hcl 0.4 Mg Cap.er.24h 0.4 Mg PO DAILY Levothyroxine Sodium 88 Mcg Tablet 88 Mcg PO DAILYAC Rivastigmine (Rivastigmine Tartrate) 1.5 Mg Capsule 3 Mg PO BID I have reviewed the current psychotropics carefully including drug interactions. Risk benefit ratio favors no change other than as noted in my dictated progress note. Diagnosis: Problems: (1) Anxiety disorder (2) Dementia in Alzheimer's disease with delusions (3) Dementia in Alzheimer's disease with depression (4) Dementia, vascular, with delusions (5) Dementia, vascular, with depression (6) Impulse control disorder MILAN TAYLOR MD Sep 23, 2018 22:35
[2018-09-23 23:06] LABS: HEMOGLOBIN A1C 5.5 % (4.8-5.6)
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
--- NOTE | 2018-09-24 01:23 | CONS ---
DATE OF CONSULTATION: REASON FOR CONSULTATION: Medical management. HISTORY OF PRESENT ILLNESS: The patient is a 78-year-old male patient, a resident at [facility], who was admitted on account of not eating, lost about 20 pounds in 41 days, has insomnia, has been groping female staff and other female resident by the arm, refused labs today. The patient cannot sit still, refuses medication at times, wandering, verbally abusive, anxious. The medication had to be put in peanut butter to get him to take them. All this in a major neurocognitive disorder and he is here for inpatient psychiatric stabilization. PAST MEDICAL HISTORY: Significant for benign prostatic hypertrophy, hypothyroidism, coronary artery disease, hypertension, sensorineural deafness, and he wears corrective lenses for significant visual impairment. PAST SURGICAL HISTORY: Significant for coronary artery bypass graft surgery. ALLERGIES: He is allergic to Exelon patch as well as adhesive tapes. FAMILY HISTORY: Unremarkable. SOCIAL HISTORY: He is . He lives at [facility] at present. Apparently, he does not smoke, drink alcohol or use any recreational drugs. REVIEW OF SYSTEMS: Unobtainable. MEDICATIONS: He is currently on following medications: He is on rivastigmine 1.5 mg capsule 3 mg twice a day, tamsulosin 0.4 mg daily, Tylenol 650 mg every 6 hours, divalproex sodium 125 mg twice a day. divalproex 250 mg at bedtime, fluvoxamine maleate 100 mg at bedtime, mirtazapine 15 mg at bedtime, trazodone 100 mg p.o. at bedtime, olanzapine 5 mg every 2 hours as needed, quetiapine fumarate 25 mg daily, quetiapine fumarate 50 mg at 3:00, Namenda 10 mg p.o. b.i.d., Maalox 15 mL after meals and as needed, bisacodyl 10 mg and 30 mL enema rectally daily p.r.n. for constipation, levothyroxine sodium 88 mcg daily, and menthol for Bengay applied topically 4 times a day. PHYSICAL EXAMINATION: GENERAL: On examining him, he was sitting comfortably in his chair, in no apparent distress. He apparently fell down his back, but did not hit his head. He was pale, but no jaundice, cyanosis, or thyromegaly. No jugular venous distension. No lower limb edema. VITAL SIGNS: His heart rate was 72, blood pressure was 136/94, temperature was 97.6, respiratory rate was 20, and oxygen saturation was 95%. HEAD, EYES, EARS, NOSE, and THROAT: Showed normocephalic, atraumatic. NECK: Supple. HEART: Showed normal first and second heart sounds. No gallop, rub or murmur. CHEST: Clear to auscultation. No crepitation or rhonchi. ABDOMEN: Distended, soft, nontender. NEUROLOGIC: He is demented, but without any obvious lateralizing sign. All his cranial nerves are intact. EXTREMITIES: He moves extremities without difficulty. LABORATORY DATA: His lab work showed his white cell count was 6000, hemoglobin 12, hematocrit 35, MCV 93, and platelet count of 189,000. His serum sodium was 141, potassium 4.3, chloride 106, bicarbonate 27, anion gap of 8, BUN 32, creatinine 1.4, estimated GFR was 49 mL per minute. His glucose was 91, calcium was 8.9, magnesium was 1.9. Serum iron was 49, TIBC was 184. Iron saturation was 27. Total bilirubin, AST, ALT, alkaline phosphatase were normal. Total protein was 7.9, albumin was 3.2. Urinalysis showed the urine was yellow, hazy with a pH of 7, specific gravity 1.020. There was a trace of protein, negative for glucose, trace of ketones. The urine was negative for blood, nitrite, bilirubin, leukocyte esterase, no rbc's, 1-4 wbc's and no bacteria. His toxic screen showed his valproic acid was subtherapeutic at 23 mcg/mL. SUMMARY: This is a 78-year-old male patient, a resident at [facility], who was admitted on account of anorexia and insomnia, weight loss of more than 20 pounds in 41 days. He was groping female staff and other residents, wandering, verbally abusive, anxious, cannot sit still, refuses medication at times and all this in a background of major neurocognitive disorder, vascular. His past medical history is significant for benign prostatic hypertrophy, hypothyroidism, hypertension, coronary artery disease, hearing loss, vision loss, restlessness, agitation. He has also slightly impaired kidney function with a creatinine slightly elevated at 1.4. However, his vital signs are stable. He has mild normochromic normocytic anemia and also chronic kidney disease with estimated GFR of 49 mL per minute. His urinalysis is unremarkable. All in all, the patient seems to be medically stable. I will continue obviously with all his current medication. I will follow all his lab works that are still pending at the time of this dictation and make any necessary recommendation. Thank you Dr. London for allowing me to participate in the care of this patient. ALBA QUINTANILLA MD DR: RALPH/alfredo JOB#: [id number] / [id number]
[2018-09-24] MEDS: LEVOTHYROXINE 88 MCG TABLET PO SCH (05:52)
[2018-09-24 05:54] VITALS: BP 130/69
[2018-09-24] MEDS: TAMSULOSIN 0.4 MG CAP.ER.24H. PO SCH (10:34)
[2018-09-24] MEDS: MEMANTINE 10 MG TABLET. PO SCH ×2 (10:34→20:06)
[2018-09-24] MEDS: DIVALPROEX 125 MG CAP.SPRINK PO SCH ×2 (10:34→20:06)
[2018-09-24] MEDS: QUEtiapine 25 MG TABLET. PO SCH ×2 (10:35→18:02)
[2018-09-24] MEDS: RIVASTIGMINE 3 MG CAPSULE. PO SCH ×2 (10:35→20:06)
[2018-09-24] MEDS: QUEtiapine 50 MG TABLET. PO SCH (15:20)
[2018-09-24 16:25] VITALS: BP 102/62
[2018-09-24] MEDS: traZODone 100 MG TABLET. PO SCH (20:06)
[2018-09-24] MEDS: MIRTAZAPINE 15 MG TABLET PO SCH (20:07)
--- NOTE | 2018-09-24 22:44 | PDOC ---
Exam Note: Justin Note: Please also refer to the separate dictated note~for this date of service dictated separately.~Patient seen individually. Discussed the patient with Nursing staff reviewed the chart.~Reviewed interim history and current functioning. Reviewed vital signs,~Labs/ Radiology~and current medications noted below. Continue current treatment with the changes noted in the dictated addendum note Assessment: Vital Signs: Vital Signs Date Time Temp Pulse Resp B/P (MAP) Pulse Ox O2 Delivery O2 Flow Rate FiO2 09/24/18 16:25 97.6 88 16 102/62 (75) 92 09/22/18 18:05 Room Air I&O Intake and Output 09/24/18 07:00 Intake Total 240 ml Balance 240 ml Intake Oral 240 ml Current Medications: Meds: Current Medications Acetaminophen (Tylenol) 650 mg PRN Q6HRS PRN PO PAIN / TEMP; Start 09/22/18 at 21:30; Stop 09/22/18 at 22:50; Status DC Multi-Ingredient Ointment (Analgesic Roosevelt) 1 kita PRN QID PRN TP MUSCLE PAIN; Start 09/22/18 at 21:30; Stop 09/22/18 at 22:50; Status DC Al Hydroxide/Mg Hydroxide (Mylanta Plus Xs) 15 ml PRN AFTMEALHC PRN PO DYSPEPSIA; Start 09/22/18 at 21:30; Stop 09/22/18 at 22:50; Status DC Magnesium Hydroxide (Milk Of Magnesia) 2,400 mg PRN QHS PRN PO CONSTIPATION; Start 09/22/18 at 21:30; Stop 09/22/18 at 22:50; Status DC Olanzapine (ZyPREXA ZYDIS) 5 mg PRN Q2HR PRN PO PSYCHOSIS Last administered on 09/24/18at 15:30; Start 09/22/18 at 22:00 Divalproex Sodium (Depakote Sprinkles) 125 mg 0900,1200 PO Last administered on 09/24/18at 10:34; Start 09/23/18 at 09:00; Stop 09/24/18 at 11:32; Status DC Divalproex Sodium (Depakote Sprinkles) 250 mg HS PO Last administered on at 19:44; Start 09/23/18 at 21:00; Stop 09/24/18 at 11:32; Status DC Fluvoxamine Maleate (Luvox) 100 mg HS PO Last administered on 09/24/18 20:06; Start 09/23/18 at 21:00 Memantine (Namenda) 10 mg BID PO Last administered on 09/24/18 20:06; Start at 09:00 Mirtazapine (Remeron) 15 mg HS PO Last administered on 09/24/18 20:07; Start 09/23/18 at 21:00 Quetiapine Fumarate (SEROquel) 25 mg DAILY PO Last administered on 09/24/18 10 :35; Start 09/23/18 at 09:00 Quetiapine Fumarate (SEROquel) 37.5 mg 1800 PO Last administered on 09/24/18 18:02; Start 09/23/18 at 18:00 Quetiapine Fumarate (SEROquel) 50 mg 1500 PO Last administered on 09/24/18 15: 20; Start 09/23/18 at 15:00 Rivastigmine Tartrate (Exelon) 3 mg BID PO Last administered on 09/24/18 20:06 ; Start 09/23/18 at 09:00 Trazodone HCl (Desyrel) 100 mg HS PO Last administered on 09/24/18 20:06; Start 09/23/18 at 21:00 Acetaminophen (Tylenol) 650 mg PRN Q6HRS PRN PO PAIN / TEMP; Start 09/22/18 at 22:00; Status Cancel Bisacodyl (Fleet Bisacodyl) 10 mg PRN DAILY PRN RC CONSTIPATION; Start 09/22/18 at 22:00 Levothyroxine Sodium (Synthroid) 88 mcg DAILY06 PO Last administered on 05:52; Start 09/23/18 at 06:00 Al Hydroxide/Mg Hydroxide (Mylanta Plus Xs) 15 ml PRN AFTMEALHC PRN PO DYSPEPSIA; Start 09/22/18 at 22:00; Status Cancel Tamsulosin HCl (Flomax) 0.4 mg DAILY PO Last administered on 09/24/18 10:34; Start 09/23/18 at 09:00 Magnesium Hydroxide (Milk Of Magnesia) 2,400 mg PRN QHS PRN PO CONSTIPATION; Start 09/22/18 at 22:00; Status Cancel Multi-Ingredient Ointment (Analgesic Roosevelt) 1 kita PRN QID PRN TP PAIN / TEMP; Start 09/22/18 at 22:00; Status Cancel Acetaminophen (Tylenol) 650 mg PRN Q6HRS PRN PO PAIN / TEMP; Start 09/22/18 at 23:00 Al Hydroxide/Mg Hydroxide (Mylanta Plus Xs) 15 ml PRN AFTMEALHC PRN PO DYSPEPSIA; Start 09/22/18 at 23:00 Magnesium Hydroxide (Milk Of Magnesia) 2,400 mg PRN QHS PRN PO CONSTIPATION; Start 09/22/18 at 23:00 Multi-Ingredient Ointment (Analgesic Roosevelt) 1 kita PRN QID PRN TP PAIN / TEMP; Start 09/22/18 at 23:00 Divalproex Sodium (Depakote Sprinkles) 500 mg HS PO Last administered on at 20:06; Start 09/24/18 at 21:00 Active Scripts Active Reported Namenda (Memantine Hcl) 10 Mg Tablet 10 Mg PO BID Trazodone Hcl 100 Mg Tablet 100 Mg PO HS Fluvoxamine Maleate 100 Mg Cap.er.24h 100 Mg PO HS Seroquel (Quetiapine Fumarate) 25 Mg Tablet 37.5 Mg PO 1800 Seroquel (Quetiapine Fumarate) 50 Mg Tablet 50 Mg PO 1500 Seroquel (Quetiapine Fumarate) 25 Mg Tablet 25 Mg PO DAILY Zyprexa Zydis (Olanzapine) 5 Mg Tab.rapdis 5 Mg PO PRN Q2HR PRN Mirtazapine 15 Mg Tablet 15 Mg PO HS Bengay (Menthol) 113 Gm Gel..gram. 1 Kita TP PRN QID PRN Milk Of Magnesia (Magnesium Hydroxide) 2,400 Mg/10 Ml Oral.susp 2,400 Mg PO PRN QHS PRN Maalox Maximum Strength Susp (Mag Hydrox/Al Hydrox/Simeth) 355 Ml Oral.susp 15 Ml PO PRN AFTMEALHC PRN Depakote Sprinkle (Divalproex Sodium) 125 Mg Cap.sprink 250 Mg PO HS Depakote Sprinkle (Divalproex Sodium) 125 Mg Cap.sprink 125 Mg PO 0900,1200 Bisacodyl 10 Mg/30 Ml Enema 10 Mg RC PRN DAILY PRN Tylenol (Acetaminophen) 325 Mg Tablet 650 Mg PO PRN Q6HRS PRN Tamsulosin Hcl 0.4 Mg Cap.er.24h 0.4 Mg PO DAILY Levothyroxine Sodium 88 Mcg Tablet 88 Mcg PO DAILYAC Rivastigmine (Rivastigmine Tartrate) 1.5 Mg Capsule 3 Mg PO BID I have reviewed the current psychotropics carefully including drug interactions. Risk benefit ratio favors no change other than as noted in my dictated progress note. Diagnosis: Problems: (1) Anxiety disorder (2) Dementia in Alzheimer's disease with delusions (3) Dementia in Alzheimer's disease with depression (4) Dementia, vascular, with delusions (5) Dementia, vascular, with depression (6) Impulse control disorder MILAN TAYLOR MD Sep 24, 2018 22:44
[2018-09-25 05:56] VITALS: BP 133/74
[2018-09-25] MEDS: LEVOTHYROXINE 88 MCG TABLET PO SCH (06:01)
[2018-09-25] MEDS: RIVASTIGMINE 3 MG CAPSULE. PO SCH ×2 (07:47→20:00)
[2018-09-25] MEDS: QUEtiapine 25 MG TABLET. PO SCH ×2 (07:47→16:57)
[2018-09-25] MEDS: TAMSULOSIN 0.4 MG CAP.ER.24H. PO SCH (07:48)
[2018-09-25] MEDS: MEMANTINE 10 MG TABLET. PO SCH ×2 (07:49→20:00)
[2018-09-25] MEDS: QUEtiapine 50 MG TABLET. PO SCH (14:30)
[2018-09-25 16:04] VITALS: BP 111/72
[2018-09-25] MEDS: ACETAMINOPHEN 325 MG TABLET PO PRN ×2 (16:23→16:58)
[2018-09-25] MEDS: DIVALPROEX 125 MG CAP.SPRINK PO SCH (20:00)
[2018-09-25] MEDS: traZODone 100 MG TABLET. PO SCH (20:00)
[2018-09-25] MEDS: MIRTAZAPINE 15 MG TABLET PO SCH (20:00)
--- NOTE | 2018-09-25 22:49 | PDOC ---
Exam Note: Justin Note: Please also refer to the separate dictated note~for this date of service dictated separately.~Patient seen individually. Discussed the patient with Nursing staff reviewed the chart.~Reviewed interim history and current functioning. Reviewed vital signs,~Labs/ Radiology~and current medications noted below. Continue current treatment with the changes noted in the dictated addendum note Assessment: Vital Signs: Vital Signs Date Time Temp Pulse Resp B/P (MAP) Pulse Ox O2 Delivery O2 Flow Rate FiO2 09/25/18 16:04 98.1 67 18 111/72 (85) 99 09/22/18 18:05 Room Air I&O Intake and Output 09/25/18 07:00 Intake Total 480 ml Balance 480 ml Intake Oral 480 ml Current Medications: Meds: Current Medications Acetaminophen (Tylenol) 650 mg PRN Q6HRS PRN PO PAIN / TEMP; Start 09/22/18 at 21:30; Stop 09/22/18 at 22:50; Status DC Multi-Ingredient Ointment (Analgesic Hayden) 1 kita PRN QID PRN TP MUSCLE PAIN; Start 09/22/18 at 21:30; Stop 09/22/18 at 22:50; Status DC Al Hydroxide/Mg Hydroxide (Mylanta Plus Xs) 15 ml PRN AFTMEALHC PRN PO DYSPEPSIA; Start 09/22/18 at 21:30; Stop 09/22/18 at 22:50; Status DC Magnesium Hydroxide (Milk Of Magnesia) 2,400 mg PRN QHS PRN PO CONSTIPATION; Start 09/22/18 at 21:30; Stop 09/22/18 at 22:50; Status DC Olanzapine (ZyPREXA ZYDIS) 5 mg PRN Q2HR PRN PO PSYCHOSIS Last administered on 09/25/18at 16:58; Start 09/22/18 at 22:00 Divalproex Sodium (Depakote Sprinkles) 125 mg 0900,1200 PO Last administered on 09/24/18at 10:34; Start 09/23/18 at 09:00; Stop 09/24/18 at 11:32; Status DC Divalproex Sodium (Depakote Sprinkles) 250 mg HS PO Last administered on at 19:44; Start 09/23/18 at 21:00; Stop 09/24/18 at 11:32; Status DC Fluvoxamine Maleate (Luvox) 100 mg HS PO Last administered on 09/25/18 20:00; Start 09/23/18 at 21:00 Memantine (Namenda) 10 mg BID PO Last administered on 09/25/18 20:00; Start at 09:00 Mirtazapine (Remeron) 15 mg HS PO Last administered on 09/25/18 20:00; Start 09/23/18 at 21:00 Quetiapine Fumarate (SEROquel) 25 mg DAILY PO Last administered on 09/25/18 07 :47; Start 09/23/18 at 09:00 Quetiapine Fumarate (SEROquel) 37.5 mg 1800 PO Last administered on 09/25/18 16:57; Start 09/23/18 at 18:00 Quetiapine Fumarate (SEROquel) 50 mg 1500 PO Last administered on 09/25/18 14: 30; Start 09/23/18 at 15:00 Rivastigmine Tartrate (Exelon) 3 mg BID PO Last administered on 09/25/18 20:00 ; Start 09/23/18 at 09:00 Trazodone HCl (Desyrel) 100 mg HS PO Last administered on 09/25/18 20:00; Start 09/23/18 at 21:00 Acetaminophen (Tylenol) 650 mg PRN Q6HRS PRN PO PAIN / TEMP; Start 09/22/18 at 22:00; Status Cancel Bisacodyl (Fleet Bisacodyl) 10 mg PRN DAILY PRN RC CONSTIPATION; Start 09/22/18 at 22:00 Levothyroxine Sodium (Synthroid) 88 mcg DAILY06 PO Last administered on 06:01; Start 09/23/18 at 06:00 Al Hydroxide/Mg Hydroxide (Mylanta Plus Xs) 15 ml PRN AFTMEALHC PRN PO DYSPEPSIA; Start 09/22/18 at 22:00; Status Cancel Tamsulosin HCl (Flomax) 0.4 mg DAILY PO Last administered on 09/25/18 07:48; Start 09/23/18 at 09:00 Magnesium Hydroxide (Milk Of Magnesia) 2,400 mg PRN QHS PRN PO CONSTIPATION; Start 09/22/18 at 22:00; Status Cancel Multi-Ingredient Ointment (Analgesic Hayden) 1 kita PRN QID PRN TP PAIN / TEMP; Start 09/22/18 at 22:00; Status Cancel Acetaminophen (Tylenol) 650 mg PRN Q6HRS PRN PO PAIN / TEMP Last administered on 09/25/18at 16:58; Start 09/22/18 at 23:00 Al Hydroxide/Mg Hydroxide (Mylanta Plus Xs) 15 ml PRN AFTMEALHC PRN PO DYSPEPSIA; Start 09/22/18 at 23:00 Magnesium Hydroxide (Milk Of Magnesia) 2,400 mg PRN QHS PRN PO CONSTIPATION; Start 09/22/18 at 23:00 Multi-Ingredient Ointment (Analgesic Hayden) 1 kita PRN QID PRN TP PAIN / TEMP; Start 09/22/18 at 23:00 Divalproex Sodium (Depakote Sprinkles) 500 mg HS PO Last administered on at 20:00; Start 09/24/18 at 21:00 Active Scripts Active Reported Namenda (Memantine Hcl) 10 Mg Tablet 10 Mg PO BID Trazodone Hcl 100 Mg Tablet 100 Mg PO HS Fluvoxamine Maleate 100 Mg Cap.er.24h 100 Mg PO HS Seroquel (Quetiapine Fumarate) 25 Mg Tablet 37.5 Mg PO 1800 Seroquel (Quetiapine Fumarate) 50 Mg Tablet 50 Mg PO 1500 Seroquel (Quetiapine Fumarate) 25 Mg Tablet 25 Mg PO DAILY Zyprexa Zydis (Olanzapine) 5 Mg Tab.rapdis 5 Mg PO PRN Q2HR PRN Mirtazapine 15 Mg Tablet 15 Mg PO HS Bengay (Menthol) 113 Gm Gel..gram. 1 Kita TP PRN QID PRN Milk Of Magnesia (Magnesium Hydroxide) 2,400 Mg/10 Ml Oral.susp 2,400 Mg PO PRN QHS PRN Maalox Maximum Strength Susp (Mag Hydrox/Al Hydrox/Simeth) 355 Ml Oral.susp 15 Ml PO PRN AFTMEALHC PRN Depakote Sprinkle (Divalproex Sodium) 125 Mg Cap.sprink 250 Mg PO HS Depakote Sprinkle (Divalproex Sodium) 125 Mg Cap.sprink 125 Mg PO 0900,1200 Bisacodyl 10 Mg/30 Ml Enema 10 Mg RC PRN DAILY PRN Tylenol (Acetaminophen) 325 Mg Tablet 650 Mg PO PRN Q6HRS PRN Tamsulosin Hcl 0.4 Mg Cap.er.24h 0.4 Mg PO DAILY Levothyroxine Sodium 88 Mcg Tablet 88 Mcg PO DAILYAC Rivastigmine (Rivastigmine Tartrate) 1.5 Mg Capsule 3 Mg PO BID I have reviewed the current psychotropics carefully including drug interactions. Risk benefit ratio favors no change other than as noted in my dictated progress note. Diagnosis: Problems: (1) Anxiety disorder (2) Dementia in Alzheimer's disease with delusions (3) Dementia in Alzheimer's disease with depression (4) Dementia, vascular, with delusions (5) Dementia, vascular, with depression (6) Impulse control disorder MILAN TAYLOR MD Sep 25, 2018 22:49
[2018-09-26] MEDS: LEVOTHYROXINE 88 MCG TABLET PO SCH (05:22)
[2018-09-26] MEDS: RIVASTIGMINE 3 MG CAPSULE. PO SCH ×2 (09:32→19:46)
[2018-09-26] MEDS: QUEtiapine 25 MG TABLET. PO SCH ×2 (09:32→16:43)
[2018-09-26] MEDS: MEMANTINE 10 MG TABLET. PO SCH ×2 (09:32→19:46)
[2018-09-26] MEDS: TAMSULOSIN 0.4 MG CAP.ER.24H. PO SCH (09:32)
[2018-09-26] MEDS: QUEtiapine 50 MG TABLET. PO SCH (14:34)
[2018-09-26 16:00] VITALS: BP 111/69
[2018-09-26] MEDS: traZODone 100 MG TABLET. PO SCH (19:46)
[2018-09-26] MEDS: DIVALPROEX 125 MG CAP.SPRINK PO SCH (19:46)
[2018-09-26] MEDS: risperiDONE ORAL 1 MG/ML 30ml BOTTLE. SL SCH (19:47)
[2018-09-26] MEDS: MIRTAZAPINE 15 MG TABLET PO SCH (19:47)
--- NOTE | 2018-09-26 20:31 | PN ---
DATE: 09/24/2018 PSYCHIATRIC PROGRESS NOTE This late entry 09/24/2018 covers elements not covered in my initial note. SUBJECTIVE: I met with the patient in the evening. The patient was also staffed at a treatment team meeting with the entire team and the patient's Sadie, attended the treatment team meeting. We had a lengthy discussion about his diagnosis, possibility of using a depot preparation of Risperdal, risks associated with it. The patient's is agreeable if nothing else works. He has been yelling, shaking the door, anxious, restless, somewhat demanding, very confused, had to be placed in the [facility] in the evening for striking out. REVIEW OF SYSTEMS: No CV, , pulmonary, eye, ENT system symptoms on review. Gait unsteady. Reliability poor. MENTAL STATUS EXAMINATION: Oriented to himself. Insight, judgment, recent and remote memory, attention, concentration, fund of knowledge poor, consistent with his diagnosis. IMPRESSION: Major neurocognitive disorder, Alzheimer, vascular with delusion, depression, behavioral disturbance. Rest unchanged. PLAN: No change from initial note. Continue current psychotropics. Encourage compliance. Consider Risperdal Consta. MAN Connie TAYLOR MD DR: NATAN/alfredo JOB#: [id number] / [id number]
[2018-09-26 22:58] VITALS: BP 102/64
--- NOTE | 2018-09-27 03:52 | PN ---
DATE: 09/25/2018 PSYCHIATRIC PROGRESS NOTE This late entry 09/25/2018 covers elements not covered in my initial note. SUBJECTIVE: I met with the patient in the evening. The patient slept 5-3/4 hours previous night. He has been somewhat resistive to medications, quite confused, grabbing the handrail, agitated, but redirects. REVIEW OF SYSTEMS: No CV, , pulmonary, eye, ENT system symptoms on review. Reliability poor. MENTAL STATUS EXAM: Oriented to himself. Insight, judgment, recent and remote memory, attention, concentration, fund of knowledge poor, consistent with his diagnosis mentioned in my initial note. PLAN: No change from initial note. MAN Connie TAYLOR MD DR: NATAN/alfredo JOB#: [id number] / [id number]
[2018-09-27 05:43] VITALS: BP 150/78
--- NOTE | 2018-09-27 05:47 | PN ---
DATE: 09/26/2018 SUBJECTIVE: The patient was seen today, met with the staff, chart reviewed and also covering for Dr. London. The patient continues to exhibit increased anxiety, restlessness, confusion and also not sleeping well. The patient complains of increased anxiety, unable to control his behavior. The patient is also irritable, baxter and emotionally labile. The patient has to be under close observation. OBSERVATION: VITAL SIGNS: The patient slept about 5 hours last night. The patient refused his vitals. MEDICATIONS: The patient's medications reviewed. The patient's Risperdal was increased to 1.5 mg b.i.d. p.o. The patient's Seroquel changed to 37.5 mg at night. When the patient was planned to have Depo injections, most likely Risperdal because the patient is refusing to take medication by mouth. LABORATORY DATA: The patient's lab reviewed. ASSESSMENT: 1. Major neurocognitive disorder, Alzheimer's, vascular with delusions, depression, behavioral disturbances. 2. Anxiety disorder. PLAN: To continue with the treatment and the plan is to switch the Risperdal p.o. to Depo injections because of his noncompliance with the treatment. LAURA GONZALEZ MD DR: KENJI/alfredo JOB#: [id number] / [id number]
[2018-09-27] MEDS: LEVOTHYROXINE 88 MCG TABLET PO SCH (06:14)
[2018-09-27] MEDS: RIVASTIGMINE 3 MG CAPSULE. PO SCH ×2 (08:18→21:39)
[2018-09-27] MEDS: TAMSULOSIN 0.4 MG CAP.ER.24H. PO SCH (08:18)
[2018-09-27] MEDS: MEMANTINE 10 MG TABLET. PO SCH ×2 (08:18→21:39)
[2018-09-27] MEDS: risperiDONE ORAL 1 MG/ML 30ml BOTTLE. SL SCH ×2 (08:21→22:54)
[2018-09-27] MEDS ORDERED: risperiDONE ORAL 1 MG/ML 30ml BOTTLE. SL SCH (09:00)
[2018-09-27 16:14] VITALS: BP 113/64
[2018-09-27] MEDS: QUEtiapine 25 MG TABLET. PO SCH ×2 (17:03→17:04)
[2018-09-27] MEDS: MIRTAZAPINE 15 MG TABLET PO SCH (21:39)
[2018-09-27] MEDS: traZODone 100 MG TABLET. PO SCH (21:39)
[2018-09-27] MEDS: DIVALPROEX 125 MG CAP.SPRINK PO SCH (21:39)
--- NOTE | 2018-09-28 01:40 | PN ---
DATE: 09/27/2018 SUBJECTIVE: The patient was seen today, met with the staff, chart reviewed, and also covering for Dr. London. The patient continued to be restless, some confusion, not sleeping well. The patient also admits to having increased anxiety and unable to control his behaviors. OBSERVATION: VITAL SIGNS: Temperature 97.9, blood pressure 150/78, pulse 68, respirations 20, O2 sat 98%. Slept about 5 hours last night. His appetite is fair. MEDICATIONS: Reviewed. Currently on Seroquel 37.5 mg at night, Risperdal liquid 1.5 mg b.i.d. p.o., and the patient will be started on Depo Risperdal Consta in the next day or two. The patient is not having the side effects to the medications. ASSESSMENT: Major neurocognitive disorder; Alzheimer's, vascular with delusions; depression and behavioral disturbances; anxiety disorder, unspecified. PLAN: To continue with the treatment. LAURA GONZALEZ MD DR: KENJI/alfredo JOB#: [id number] / [id number]
[2018-09-28] MEDS: LEVOTHYROXINE 88 MCG TABLET PO SCH (05:51)
[2018-09-28 06:04] VITALS: BP 171/84
[2018-09-28] MEDS: MEMANTINE 10 MG TABLET. PO SCH ×2 (08:20→20:15)
[2018-09-28] MEDS: TAMSULOSIN 0.4 MG CAP.ER.24H. PO SCH (08:20)
[2018-09-28] MEDS: RIVASTIGMINE 3 MG CAPSULE. PO SCH ×2 (08:20→20:14)
[2018-09-28] MEDS: risperiDONE ORAL 1 MG/ML 30ml BOTTLE. SL SCH ×2 (08:21→20:17)
[2018-09-28 13:27] LABS: BASO % 0 % (0-3); EOS # 0.1 x10^3/uL (0.0-0.7); EOS % 2 % (0-3); HEMATOCRIT 36.8 % (39.0-53.0); HEMOGLOBIN 12.2 g/dL (13.0-17.5); LYMPH # 1.1 x10^3/uL (1.0-4.8); LYMPH % 19 % (24-48); MEAN CORPUSCULAR HEMOGLOBIN 31 pg (25-35); MEAN CORPUSCULAR HGB CONC 33 g/dL (31-37); MEAN CORPUSCULAR VOLUME 94 fL (79-100); MONO # 0.7 x10^3/uL (0.0-1.1); MONO % 12 % (0-9); NEUT % 67 % (31-73); PLATELET COUNT 209 x10^3/uL (140-400); RED BLOOD COUNT 3.91 x10^6/uL (4.30-5.70); RED CELL DISTRIBUTION WIDTH 14.4 % (11.5-14.5)
[2018-09-28 13:40] LABS: ALBUMIN 3.2 g/dL (3.4-5.0); ALBUMIN/GLOBULIN RATIO 0.7 (1.0-1.7); CALCIUM 9.3 mg/dL (8.5-10.1); CREATININE 1.4 mg/dL (0.7-1.3); POTASSIUM 4.7 mmol/L (3.5-5.1); TOTAL BILIRUBIN 0.6 mg/dL (0.2-1.0)
[2018-09-28 16:30] VITALS: BP 131/76
[2018-09-28] MEDS: QUEtiapine 25 MG TABLET. PO SCH (17:47)
[2018-09-28] MEDS: MIRTAZAPINE 15 MG TABLET PO SCH (20:14)
[2018-09-28] MEDS: DIVALPROEX 125 MG CAP.SPRINK PO SCH (20:14)
[2018-09-28] MEDS: traZODone 100 MG TABLET. PO SCH (20:14)
--- NOTE | 2018-09-29 02:21 | PN ---
DATE: 09/28/2018 SUBJECTIVE: The patient was seen today, met with the staff, chart reviewed. The patient's behavior continued to improve. Apparently he responded well to Ativan 1 mg daily p.o. or IM. The patient is less anxious, less agitated, and able to redirect. OBSERVATION: VITAL SIGNS: Temperature 97, blood pressure 170/84, pulse 67, respirations 20, O2 sat 97%. Slept about 7 hours last night. The patient's appetite is fair. DATA: The patient's lab reviewed. ASSESSMENT: 1. Major neurocognitive disorder, Alzheimer's, vascular with delusions, depression and behavioral disturbances. 2. Anxiety disorder, unspecified. PLAN: The patient will continue on his current medications including Risperdal liquid 1.5 mg b.i.d. p.o. and also Seroquel 37.5 mg at night. The patient will be started on Risperdal Consta few days before discharge. LENGTH OF STAY: 5 days. LAURA GONZALEZ MD DR: KENJI/alfredo JOB#: [id number] / [id number]
[2018-09-29 06:19] VITALS: BP 153/75
[2018-09-29] MEDS: LEVOTHYROXINE 88 MCG TABLET PO SCH (08:26)
[2018-09-29] MEDS: TAMSULOSIN 0.4 MG CAP.ER.24H. PO SCH (08:26)
[2018-09-29] MEDS: RIVASTIGMINE 3 MG CAPSULE. PO SCH ×2 (08:26→19:32)
[2018-09-29] MEDS: risperiDONE ORAL 1 MG/ML 30ml BOTTLE. SL SCH ×2 (08:27→19:36)
[2018-09-29] MEDS: MEMANTINE 10 MG TABLET. PO SCH ×2 (08:27→19:32)
[2018-09-29] MEDS: risperiDONE MICROSPHERES 12.5 MG/2 ML DISP.SYRIN. IM SCH (12:51)
[2018-09-29 15:54] VITALS: BP 133/73
[2018-09-29] MEDS: QUEtiapine 25 MG TABLET. PO SCH (16:20)
[2018-09-29] MEDS: DIVALPROEX 125 MG CAP.SPRINK PO SCH (19:32)
[2018-09-29] MEDS: MIRTAZAPINE 15 MG TABLET PO SCH (19:32)
[2018-09-29] MEDS: traZODone 100 MG TABLET. PO SCH (19:33)
--- NOTE | 2018-09-30 03:34 | PN ---
DATE: 09/29/2018 SUBJECTIVE: The patient was seen today, met with the staff, chart reviewed. The patient's behavior has improved. No major behavior problems. He is confused, needing assistance with ADLs. The patient's thinking is disorganized. The patient has difficulty communicating his needs. Staff also consigned the recommendation for hospice care following discharge to the [facility]. OBSERVATION: VITAL SIGNS: Temperature 97.7, blood pressure 153/75, pulse 71, respirations 18, O2 sat 98%. Slept about 5 hours last night. CURRENT MEDICATIONS: The patient is currently on Risperdal 1.5 mg b.i.d. p.o. and Seroquel 37.5 mg at night and we are in the process of switching to Risperdal Consta. PLAN: The plan is to continue with the treatment. Length of stay is 5 days. LAURA GONZALEZ MD DR: KENJI/alfredo JOB#: [id number] / [id number]
[2018-09-30] MEDS: LEVOTHYROXINE 88 MCG TABLET PO SCH (06:01)
[2018-09-30 06:08] VITALS: BP 157/71
[2018-09-30] MEDS: TAMSULOSIN 0.4 MG CAP.ER.24H. PO SCH ×2 (07:36→09:00)
[2018-09-30] MEDS: RIVASTIGMINE 3 MG CAPSULE. PO SCH ×3 (07:36→21:00)
[2018-09-30] MEDS: MEMANTINE 10 MG TABLET. PO SCH ×3 (07:36→21:00)
[2018-09-30] MEDS: risperiDONE ORAL 1 MG/ML 30ml BOTTLE. SL SCH ×3 (07:45→21:00)
[2018-09-30] MEDS ORDERED: risperiDONE MICROSPHERES 12.5 MG/2 ML DISP.SYRIN. IM SCH (09:00)
[2018-09-30 15:39] LABS: BASO % 1 % (0-3); EOS # 0.2 x10^3/uL (0.0-0.7); EOS % 3 % (0-3); HEMATOCRIT 37.7 % (39.0-53.0); HEMOGLOBIN 12.7 g/dL (13.0-17.5); LYMPH # 1.2 x10^3/uL (1.0-4.8); LYMPH % 17 % (24-48); MEAN CORPUSCULAR HEMOGLOBIN 32 pg (25-35); MEAN CORPUSCULAR HGB CONC 34 g/dL (31-37); MEAN CORPUSCULAR VOLUME 93 fL (79-100); MONO # 0.7 x10^3/uL (0.0-1.1); MONO % 9 % (0-9); NEUT # 5.1 x10^3uL (1.8-7.7); NEUT % 70 % (31-73); PLATELET COUNT 214 x10^3/uL (140-400); RED BLOOD COUNT 4.04 x10^6/uL (4.30-5.70); RED CELL DISTRIBUTION WIDTH 14.4 % (11.5-14.5); WHITE BLOOD COUNT 7.3 x10^3/uL (4.0-11.0)
[2018-09-30 15:53] LABS: ALBUMIN 3.1 g/dL (3.4-5.0); ALBUMIN/GLOBULIN RATIO 0.6 (1.0-1.7); CALCIUM 9.1 mg/dL (8.5-10.1); CREATININE 1.2 mg/dL (0.7-1.3); GFR 58.6; POTASSIUM 4.1 mmol/L (3.5-5.1); TOTAL BILIRUBIN 0.5 mg/dL (0.2-1.0); TOTAL PROTEIN 8.3 g/dL (6.4-8.2)
[2018-09-30 16:23] VITALS: BP 100/68
[2018-09-30] MEDS: QUEtiapine 25 MG TABLET. PO SCH (17:40)
[2018-09-30] MEDS: traZODone 100 MG TABLET. PO SCH (21:00)
[2018-09-30] MEDS: MIRTAZAPINE 15 MG TABLET PO SCH (21:00)
[2018-09-30] MEDS: DIVALPROEX 125 MG CAP.SPRINK PO SCH (21:00)
[2018-10-01 06:03] VITALS: BP 143/74
[2018-10-01] MEDS: TAMSULOSIN 0.4 MG CAP.ER.24H. PO SCH (09:44)
[2018-10-01] MEDS: risperiDONE ORAL 1 MG/ML 30ml BOTTLE. SL SCH ×2 (09:44→19:09)
[2018-10-01] MEDS: RIVASTIGMINE 3 MG CAPSULE. PO SCH ×2 (09:44→19:09)
[2018-10-01] MEDS: MEMANTINE 10 MG TABLET. PO SCH ×2 (09:44→19:07)
[2018-10-01] MEDS: LEVOTHYROXINE 88 MCG TABLET PO SCH (09:55)
[2018-10-01 16:05] VITALS: BP 132/67
[2018-10-01] MEDS: QUEtiapine 25 MG TABLET. PO SCH (16:49)
[2018-10-01] MEDS: traZODone 100 MG TABLET. PO SCH (19:07)
[2018-10-01] MEDS: MIRTAZAPINE 15 MG TABLET PO SCH (19:08)
[2018-10-01] MEDS: DIVALPROEX 125 MG CAP.SPRINK PO SCH (19:08)
--- NOTE | 2018-10-02 02:29 | PN ---
DATE: 10/01/2018 SUBJECTIVE: The patient was seen today, met with the staff, chart reviewed. The patient continues to show improvement, still confused, indifferent to surroundings. The patient is having difficulty with his communication, mostly monosyllabic. The patient is also exhibiting mood swings, high level of anxiety. OBSERVATION: VITAL SIGNS: Temperature 97.9, blood pressure 90/59, pulse 85, respirations 20, O2 sat 96%. GENERAL: The patient's sleep is fair, appetite is fair. MEDICATIONS: The patient's medications reviewed, currently on Risperdal 1.5 mg b.i.d. p.o. and Seroquel 37.5 mg at night. The patient did take Risperdal Consta 12.5 mg IM. We will gradually taper off the p.o. Risperdal and also will consider discontinuing his Seroquel at night. PLAN: Plan is to continue with the treatment. LENGTH OF STAY: 5-7 days. LAURA GONZALEZ MD DR: KENJI/alfredo JOB#: [id number] / [id number]
[2018-10-02 05:48] VITALS: BP 166/82
[2018-10-02] MEDS: LEVOTHYROXINE 88 MCG TABLET PO SCH (06:00)
[2018-10-02] MEDS: TAMSULOSIN 0.4 MG CAP.ER.24H. PO SCH (11:59)
[2018-10-02] MEDS: RIVASTIGMINE 3 MG CAPSULE. PO SCH ×2 (11:59→19:11)
[2018-10-02] MEDS: risperiDONE ORAL 1 MG/ML 30ml BOTTLE. SL SCH ×2 (11:59→19:11)
[2018-10-02] MEDS: MEMANTINE 10 MG TABLET. PO SCH ×2 (11:59→19:11)
[2018-10-02 15:41] VITALS: BP 93/58
[2018-10-02] MEDS: QUEtiapine 25 MG TABLET. PO SCH (17:12)
[2018-10-02] MEDS: traZODone 100 MG TABLET. PO SCH (19:11)
[2018-10-02] MEDS: MIRTAZAPINE 15 MG TABLET PO SCH (19:11)
[2018-10-02] MEDS: DIVALPROEX 125 MG CAP.SPRINK PO SCH (19:11)
[2018-10-03 05:15] VITALS: BP 131/75
[2018-10-03] MEDS: LEVOTHYROXINE 88 MCG TABLET PO SCH (06:00)
[2018-10-03] MEDS: MEMANTINE 10 MG TABLET. PO SCH ×2 (12:08→19:28)
[2018-10-03] MEDS: RIVASTIGMINE 3 MG CAPSULE. PO SCH ×2 (12:08→19:28)
[2018-10-03] MEDS: TAMSULOSIN 0.4 MG CAP.ER.24H. PO SCH (12:08)
[2018-10-03] MEDS: risperiDONE ORAL 1 MG/ML 30ml BOTTLE. SL SCH ×2 (12:09→19:29)
[2018-10-03 15:51] VITALS: BP 143/75
[2018-10-03] MEDS: QUEtiapine 25 MG TABLET. PO SCH (17:16)
--- NOTE | 2018-10-03 17:24 | PN ---
DATE: 10/02/2018 SUBJECTIVE: The patient was seen today, met with the staff, chart reviewed. The patient's behavior improved, still confused, withdrawn, periods of agitation, difficult to redirect. The patient is less confused, not exhibiting any increased psychomotor activity or any major behavior problems. OBSERVATION: VITAL SIGNS: Temperature 97.4, blood pressure 166/82, pulse 66, respirations 20, O2 sat 97%. Slept about 4 hours last night. The patient's appetite is fair. CURRENT MEDICATIONS: The patient's current medications include Risperdal 1.5 mg b.i.d. p.o., Seroquel 37.5 mg at night. The patient is also on Risperdal Consta 12.5 mg IM. PLAN: To continue with the treatment. Length of stay 5 days. LAURA GONZALEZ MD DR: KENJI/alfredo JOB#: [id number] / [id number]
[2018-10-03] MEDS: DIVALPROEX 125 MG CAP.SPRINK PO SCH (19:28)
[2018-10-03] MEDS: MIRTAZAPINE 15 MG TABLET PO SCH (19:28)
[2018-10-03] MEDS: traZODone 100 MG TABLET. PO SCH (19:28)
--- NOTE | 2018-10-03 22:32 | PN ---
DATE: 10/03/2018 SUBJECTIVE: The patient was seen today, met with the staff, chart reviewed. The patient continues to be confused. Assistance with care, not communicating and indifferent to surroundings. Continues to have high level of anxiety and periods of agitation. OBSERVATION: VITAL SIGNS: Temperature 97.5, blood pressure 130/75, pulse 69, respirations 20, O2 sat 98%. Slept about 6 hours last night. CURRENT MEDICATIONS: The patient's current medications include Risperdal 1.5 mg b.i.d., Seroquel 37.5 mg at night. The patient is switched to Risperdal Consta. The patient is not having any side effects. PLAN: To continue with the treatment. Length of stay 5-7 days. LAURA GONZALEZ MD DR: KENJI/alfredo JOB#: [id number] / [id number]
[2018-10-04 05:52] VITALS: BP 144/78
[2018-10-04] MEDS: LEVOTHYROXINE 88 MCG TABLET PO SCH (11:43)
[2018-10-04] MEDS: TAMSULOSIN 0.4 MG CAP.ER.24H. PO SCH (11:43)
[2018-10-04] MEDS: MEMANTINE 10 MG TABLET. PO SCH ×2 (11:43→19:28)
[2018-10-04] MEDS: RIVASTIGMINE 3 MG CAPSULE. PO SCH ×2 (11:43→19:28)
[2018-10-04] MEDS: risperiDONE ORAL 1 MG/ML 30ml BOTTLE. SL SCH ×2 (11:44→19:33)
[2018-10-04 15:40] VITALS: BP 98/64
[2018-10-04] MEDS: QUEtiapine 25 MG TABLET. PO SCH (17:09)
[2018-10-04] MEDS: MIRTAZAPINE 15 MG TABLET PO SCH (19:28)
[2018-10-04] MEDS: traZODone 100 MG TABLET. PO SCH (19:28)
[2018-10-04] MEDS: DIVALPROEX 125 MG CAP.SPRINK PO SCH (19:28)
[2018-10-04] MEDS: ACETAMINOPHEN 325 MG TABLET PO PRN (19:32)
--- NOTE | 2018-10-05 02:18 | PN ---
DATE: 10/04/2018 SUBJECTIVE: The patient was seen today, met with the staff, chart reviewed. The patient's behavior remains the same, withdrawn, noncommunicative most of the time. The patient needing assistance with the ADL. Staff reports no major behavior problems. OBSERVATION: VITAL SIGNS: Temperature 97.5, blood pressure 144/78, pulse 77, respirations 20, O2 sat 96%. Slept about 6 hours last night. The patient's appetite is fair. LABORATORY DATA: The patient's lab reviewed. CURRENT MEDICATIONS: The patient is currently on Risperdal 1.5 mg b.i.d., Seroquel 37.5 mg at night, and currently on Risperdal Consta 12.5 mg. The patient is not having any side effects. Current medications also include Ativan 1 mg IM daily for her behavior problems. Plan is to continue with the treatment. ASSESSMENT: 1. Major neurocognitive disorder, Alzheimer's, vascular with delusions, depression, behavioral disturbances. 2. Anxiety disorder, unspecified. PLAN: To continue with the treatment. Length of stay 5 days. LAURA GONZALEZ MD DR: KENJI/alfredo JOB#: [id number] / [id number]
[2018-10-05 05:50] VITALS: BP 158/81
[2018-10-05] MEDS: LEVOTHYROXINE 88 MCG TABLET PO SCH (06:00)
[2018-10-05] MEDS: risperiDONE ORAL 1 MG/ML 30ml BOTTLE. SL SCH ×2 (09:00→20:03)
[2018-10-05 09:17] LABS: BASO % 1 % (0-3); EOS # 0.3 x10^3/uL (0.0-0.7); EOS % 5 % (0-3); HEMATOCRIT 37.4 % (39.0-53.0); HEMOGLOBIN 12.5 g/dL (13.0-17.5); LYMPH # 1.8 x10^3/uL (1.0-4.8); LYMPH % 26 % (24-48); MEAN CORPUSCULAR HEMOGLOBIN 31 pg (25-35); MEAN CORPUSCULAR HGB CONC 33 g/dL (31-37); MEAN CORPUSCULAR VOLUME 94 fL (79-100); MONO # 0.9 x10^3/uL (0.0-1.1); MONO % 13 % (0-9); NEUT # 3.7 x10^3uL (1.8-7.7); NEUT % 55 % (31-73); PLATELET COUNT 183 x10^3/uL (140-400); RED BLOOD COUNT 3.99 x10^6/uL (4.30-5.70); RED CELL DISTRIBUTION WIDTH 14.1 % (11.5-14.5); WHITE BLOOD COUNT 6.8 x10^3/uL (4.0-11.0)
[2018-10-05 09:28] LABS: ALBUMIN 2.8 g/dL (3.4-5.0); ALBUMIN/GLOBULIN RATIO 0.5 (1.0-1.7); CALCIUM 8.9 mg/dL (8.5-10.1); CREATININE 1.2 mg/dL (0.7-1.3); GFR 58.6; POTASSIUM 4.2 mmol/L (3.5-5.1); TOTAL BILIRUBIN 0.4 mg/dL (0.2-1.0)
[2018-10-05] MEDS: RIVASTIGMINE 3 MG CAPSULE. PO SCH ×2 (12:06→20:00)
[2018-10-05] MEDS: TAMSULOSIN 0.4 MG CAP.ER.24H. PO SCH (12:06)
[2018-10-05] MEDS: MEMANTINE 10 MG TABLET. PO SCH ×2 (12:06→20:01)
[2018-10-05 16:17] VITALS: BP 100/78
[2018-10-05] MEDS: QUEtiapine 25 MG TABLET. PO SCH (17:21)
[2018-10-05] MEDS: MIRTAZAPINE 15 MG TABLET PO SCH (20:00)
[2018-10-05] MEDS: traZODone 100 MG TABLET. PO SCH (20:03)
--- NOTE | 2018-10-05 22:45 | PDOC ---
Exam Note: Justin Note: Please also refer to the separate dictated note~for this date of service dictated separately.~Patient seen individually. Discussed the patient with Nursing staff reviewed the chart.~Reviewed interim history and current functioning. Reviewed vital signs,~Labs/ Radiology~and current medications noted below. Continue current treatment with the changes noted in the dictated addendum note Assessment: Vital Signs: Vital Signs Date Time Temp Pulse Resp B/P (MAP) Pulse Ox O2 Delivery O2 Flow Rate FiO2 10/05/18 16:17 97.2 74 16 100/78 (85) 96 10/03/18 15:51 Room Air I&O Intake and Output 10/05/18 06:59 Intake Total 600 ml Balance 600 ml Intake Oral 600 ml # Voids 1 Labs: Laboratory Tests Test 10/05/18 09:02 White Blood Count 6.8 x10^3/uL (4.0-11.0) Red Blood Count 3.99 x10^6/uL (4.30-5.70) L Hemoglobin 12.5 g/dL (13.0-17.5) L Hematocrit 37.4 % (39.0-53.0) L Mean Corpuscular Volume 94 fL (79-100) Mean Corpuscular Hemoglobin 31 pg (25-35) Mean Corpuscular Hemoglobin Concent 33 g/dL (31-37) Red Cell Distribution Width 14.1 % (11.5-14.5) Platelet Count 183 x10^3/uL (140-400) Neutrophils (%) (Auto) 55 % (31-73) Lymphocytes (%) (Auto) 26 % (24-48) Monocytes (%) (Auto) 13 % (0-9) H Eosinophils (%) (Auto) 5 % (0-3) H Basophils (%) (Auto) 1 % (0-3) Neutrophils # (Auto) 3.7 x10^3uL (1.8-7.7) Lymphocytes # (Auto) 1.8 x10^3/uL (1.0-4.8) Monocytes # (Auto) 0.9 x10^3/uL (0.0-1.1) Eosinophils # (Auto) 0.3 x10^3/uL (0.0-0.7) Basophils # (Auto) 0.0 x10^3/uL (0.0-0.2) Sodium Level 145 mmol/L (136-145) Potassium Level 4.2 mmol/L (3.5-5.1) Chloride Level 109 mmol/L (98-107) H Carbon Dioxide Level 32 mmol/L (21-32) Anion Gap 4 (6-14) L Blood Urea Nitrogen 48 mg/dL (8-26) H Creatinine 1.2 mg/dL (0.7-1.3) Estimated GFR (Cockcroft-Gault) 58.6 BUN/Creatinine Ratio 40 (6-20) H Glucose Level 83 mg/dL (70-99) Calcium Level 8.9 mg/dL (8.5-10.1) Total Bilirubin 0.4 mg/dL (0.2-1.0) Aspartate Amino Transferase (AST) 33 U/L (15-37) Alanine Aminotransferase (ALT) 40 U/L (16-63) Alkaline Phosphatase 102 U/L (46-116) Total Protein 8.0 g/dL (6.4-8.2) Albumin 2.8 g/dL (3.4-5.0) L Albumin/Globulin Ratio 0.5 (1.0-1.7) L Current Medications: Meds: Current Medications Acetaminophen (Tylenol) 650 mg PRN Q6HRS PRN PO PAIN / TEMP; Start 09/22/18 at 21:30; Stop 09/22/18 at 22:50; Status DC Multi-Ingredient Ointment (Analgesic [place]) 1 kita PRN QID PRN TP MUSCLE PAIN; Start 09/22/18 at 21:30; Stop 09/22/18 at 22:50; Status DC Al Hydroxide/Mg Hydroxide (Mylanta Plus Xs) 15 ml PRN AFTMEALHC PRN PO DYSPEPSIA; Start 09/22/18 at 21:30; Stop 09/22/18 at 22:50; Status DC Magnesium Hydroxide (Milk Of Magnesia) 2,400 mg PRN QHS PRN PO CONSTIPATION; Start 09/22/18 at 21:30; Stop 09/22/18 at 22:50; Status DC Olanzapine (ZyPREXA ZYDIS) 5 mg PRN Q2HR PRN PO PSYCHOSIS Last administered on 09/29/18at 19:33; Start 09/22/18 at 22:00 Divalproex Sodium (Depakote Sprinkles) 125 mg 0900,1200 PO Last administered on 09/24/18 10:34; Start 09/23/18 at 09:00; Stop 09/24/18 at 11:32; Status DC Divalproex Sodium (Depakote Sprinkles) 250 mg HS PO Last administered on 09/23/18 19:44; Start 09/23/18 at 21:00; Stop 09/24/18 at 11:32; Status DC Fluvoxamine Maleate (Luvox) 100 mg HS PO Last administered on 10/05/18 20:00; Start 09/23/18 at 21:00 Memantine (Namenda) 10 mg BID PO Last administered on 10/05/18 20:01; Start 09/23/18 at 09:00 Mirtazapine (Remeron) 15 mg HS PO Last administered on 10/05/18 20:00; Start 09/23/18 at 21:00 Quetiapine Fumarate (SEROquel) 25 mg DAILY PO Last administered on 09/26/18 09:32; Start 09/23/18 at 09:00; Stop 09/26/18 at 15:31; Status DC Quetiapine Fumarate (SEROquel) 37.5 mg 1800 PO Last administered on 10/05/18 17:21; Start 09/23/18 at 18:00 Quetiapine Fumarate (SEROquel) 50 mg 1500 PO Last administered on 09/26/18 14:34; Start 09/23/18 at 15:00; Stop 09/26/18 at 15:31; Status DC Rivastigmine Tartrate (Exelon) 3 mg BID PO Last administered on 10/05/18 20:00; Start 09/23/18 at 09:00 Trazodone HCl (Desyrel) 100 mg HS PO Last administered on 10/05/18 20:03; Start 09/23/18 at 21:00 Acetaminophen (Tylenol) 650 mg PRN Q6HRS PRN PO PAIN / TEMP; Start 09/22/18 at 22:00; Status Cancel Bisacodyl (Fleet Bisacodyl) 10 mg PRN DAILY PRN RC CONSTIPATION; Start 09/22/18 at 22:00 Levothyroxine Sodium (Synthroid) 88 mcg DAILY06 PO Last administered on 10/05/18at 06:00; Start 09/23/18 at 06:00 Al Hydroxide/Mg Hydroxide (Mylanta Plus Xs) 15 ml PRN AFTMEALHC PRN PO DYSPEPSIA; Start 09/22/18 at 22:00; Status Cancel Tamsulosin HCl (Flomax) 0.4 mg DAILY PO Last administered on 10/05/18at 12:06; Start 09/23/18 at 09:00 Magnesium Hydroxide (Milk Of Magnesia) 2,400 mg PRN QHS PRN PO CONSTIPATION; Start 09/22/18 at 22:00; Status Cancel Multi-Ingredient Ointment (Analgesic [place]) 1 kita PRN QID PRN TP PAIN / TEMP; Start 09/22/18 at 22:00; Status Cancel Acetaminophen (Tylenol) 650 mg PRN Q6HRS PRN PO PAIN / TEMP Last administered on 10/04/18at 19:32; Start 09/22/18 at 23:00 Al Hydroxide/Mg Hydroxide (Mylanta Plus Xs) 15 ml PRN AFTMEALHC PRN PO D YSPEPSIA; Start 09/22/18 at 23:00 Magnesium Hydroxide (Milk Of Magnesia) 2,400 mg PRN QHS PRN PO CONSTIPATION; Start 09/22/18 at 23:00 Multi-Ingredient Ointment (Analgesic [place]) 1 kita PRN QID PRN TP PAIN / TEMP; Start 09/22/18 at 23:00 Divalproex Sodium (Depakote Sprinkles) 500 mg HS PO Last administered on 10/04/18at 19:28; Start 09/24/18 at 21:00; Stop 10/05/18 at 17:53; Status DC Risperidone (RisperDAL) 1.5 mg BID SL ; Start 09/27/18 at 09:00; Stop 09/27/18 at 09:00; Status DC Risperidone (RisperDAL CONSTA) 12.5 mg Q2WKS IM ; Start 09/30/18 at 09:00; Stop 09/30/18 at 09:00; Status DC Risperidone (RisperDAL CONSTA) 12.5 mg Q2WKS IM Last administered on 09/29/18at 12:51; Start 09/29/18 at 09:00 Risperidone (RisperDAL) 1.5 mg BID SL Last administered on 10/05/18at 20:03; Start 09/26/18 at 21:00 Lorazepam (Ativan) 1 mg 1X ONCE IV ; Start 09/28/18 at 10:00; Stop 09/28/18 at 10:02; Status DC Lorazepam (Ativan) 1 mg 1X ONCE IM Last administered on 09/28/18at 10:12; Start 09/28/18 at 10:30; Stop 09/28/18 at 10:31; Status DC Lorazepam (Ativan) 1 mg DAILY IM Last administered on 10/04/18at 17:32; Start 09/29/18 at 09:00 Divalproex Sodium (Depakote Sprinkles) 500 mg 1200 PO ; Start 10/06/18 at 12:00 Active Scripts Active Reported Namenda (Memantine Hcl) 10 Mg Tablet 10 Mg PO BID Trazodone Hcl 100 Mg Tablet 100 Mg PO HS Fluvoxamine Maleate 100 Mg Cap.er.24h 100 Mg PO HS Seroquel (Quetiapine Fumarate) 25 Mg Tablet 37.5 Mg PO 1800 Seroquel (Quetiapine Fumarate) 50 Mg Tablet 50 Mg PO 1500 Seroquel (Quetiapine Fumarate) 25 Mg Tablet 25 Mg PO DAILY Zyprexa Zydis (Olanzapine) 5 Mg Tab.rapdis 5 Mg PO PRN Q2HR PRN Mirtazapine 15 Mg Tablet 15 Mg PO HS Bengay (Menthol) 113 Gm Gel..gram. 1 Kita TP PRN QID PRN Milk Of Magnesia (Magnesium Hydroxide) 2,400 Mg/10 Ml Oral.susp 2,400 Mg PO PRN QHS PRN Maalox Maximum Strength Susp (Mag Hydrox/Al Hydrox/Simeth) 355 Ml Oral.susp 15 Ml PO PRN AFTMEALHC PRN Depakote Sprinkle (Divalproex Sodium) 125 Mg Cap.sprink 250 Mg PO HS Depakote Sprinkle (Divalproex Sodium) 125 Mg Cap.sprink 125 Mg PO 0900,1200 Bisacodyl 10 Mg/30 Ml Enema 10 Mg RC PRN DAILY PRN Tylenol (Acetaminophen) 325 Mg Tablet 650 Mg PO PRN Q6HRS PRN Tamsulosin Hcl 0.4 Mg Cap.er.24h 0.4 Mg PO DAILY Levothyroxine Sodium 88 Mcg Tablet 88 Mcg PO DAILYAC Rivastigmine (Rivastigmine Tartrate) 1.5 Mg Capsule 3 Mg PO BID I have reviewed the current psychotropics carefully including drug interactions. Risk benefit ratio favors no change other than as noted in my dictated progress note. 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
[2018-10-06 05:10] VITALS: BP 150/83
[2018-10-06] MEDS: LEVOTHYROXINE 88 MCG TABLET PO SCH (05:43)
[2018-10-06] MEDS: risperiDONE ORAL 1 MG/ML 30ml BOTTLE. SL SCH ×2 (09:00→19:25)
[2018-10-06] MEDS: TAMSULOSIN 0.4 MG CAP.ER.24H. PO SCH (12:01)
[2018-10-06] MEDS: RIVASTIGMINE 3 MG CAPSULE. PO SCH ×2 (12:01→19:24)
[2018-10-06] MEDS: MEMANTINE 10 MG TABLET. PO SCH ×2 (12:02→19:24)
[2018-10-06] MEDS: DIVALPROEX 125 MG CAP.SPRINK PO SCH (12:03)
[2018-10-06 16:23] VITALS: BP 112/67
[2018-10-06] MEDS: QUEtiapine 25 MG TABLET. PO SCH (18:33)
[2018-10-06] MEDS: MIRTAZAPINE 15 MG TABLET PO SCH (19:24)
[2018-10-06] MEDS: traZODone 100 MG TABLET. PO SCH (19:26)
--- NOTE | 2018-10-06 22:45 | PDOC ---
Exam Note: Justin Note: Please also refer to the separate dictated note~for this date of service dictated separately.~Patient seen individually. Discussed the patient with Nursing staff reviewed the chart.~Reviewed interim history and current functioning. Reviewed vital signs,~Labs/ Radiology~and current medications noted below. Continue current treatment with the changes noted in the dictated addendum note Assessment: Vital Signs: Vital Signs Date Time Temp Pulse Resp B/P (MAP) Pulse Ox O2 Delivery O2 Flow Rate FiO2 10/06/18 16:23 98.6 71 16 112/67 (82) 95 10/06/18 05:10 Room Air I&O Intake and Output 10/06/18 07:00 Intake Total 360 ml Balance 360 ml Intake Oral 360 ml Current Medications: Meds: Current Medications Acetaminophen (Tylenol) 650 mg PRN Q6HRS PRN PO PAIN / TEMP; Start 09/22/18 at 21:30; Stop 09/22/18 at 22:50; Status DC Multi-Ingredient Ointment (Analgesic [place]) 1 kita PRN QID PRN TP MUSCLE PAIN; Start 09/22/18 at 21:30; Stop 09/22/18 at 22:50; Status DC Al Hydroxide/Mg Hydroxide (Mylanta Plus Xs) 15 ml PRN AFTMEALHC PRN PO DYSPE PSIA; Start 09/22/18 at 21:30; Stop 09/22/18 at 22:50; Status DC Magnesium Hydroxide (Milk Of Magnesia) 2,400 mg PRN QHS PRN PO CONSTIPATION; Start 09/22/18 at 21:30; Stop 09/22/18 at 22:50; Status DC Olanzapine (ZyPREXA ZYDIS) 5 mg PRN Q2HR PRN PO PSYCHOSIS Last administered on 09/29/18at 19:33; Start 09/22/18 at 22:00 Divalproex Sodium (Depakote Sprinkles) 125 mg 0900,1200 PO Last administered on 09/24/18at 10:34; Start 09/23/18 at 09:00; Stop 09/24/18 at 11:32; Status DC Divalproex Sodium (Depakote Sprinkles) 250 mg HS PO Last administered on 09/23/18at 19:44; Start 09/23/18 at 21:00; Stop 09/24/18 at 11:32; Status DC Fluvoxamine Maleate (Luvox) 100 mg HS PO Last administered on 10/06/18 19:24; Start 09/23/18 at 21:00 Memantine (Namenda) 10 mg BID PO Last administered on 10/06/18 19:24; Start 09/23/18 at 09:00 Mirtazapine (Remeron) 15 mg HS PO Last administered on 10/06/18 19:24; Start 09/23/18 at 21:00 Quetiapine Fumarate (SEROquel) 25 mg DAILY PO Last administered on 09/26/18 09:32; Start 09/23/18 at 09:00; Stop 09/26/18 at 15:31; Status DC Quetiapine Fumarate (SEROquel) 37.5 mg 1800 PO Last administered on 10/06/18 18:33; Start 09/23/18 at 18:00 Quetiapine Fumarate (SEROquel) 50 mg 1500 PO Last administered on 09/26/18 14:34; Start 09/23/18 at 15:00; Stop 09/26/18 at 15:31; Status DC Rivastigmine Tartrate (Exelon) 3 mg BID PO Last administered on 10/06/18 19:24; Start 09/23/18 at 09:00 Trazodone HCl (Desyrel) 100 mg HS PO Last administered on 10/06/18 19:26; Start 09/23/18 at 21:00 Acetaminophen (Tylenol) 650 mg PRN Q6HRS PRN PO PAIN / TEMP; Start 09/22/18 at 22:00; Status Cancel Bisacodyl (Fleet Bisacodyl) 10 mg PRN DAILY PRN RC CONSTIPATION; Start 09/22/18 at 22:00 Levothyroxine Sodium (Synthroid) 88 mcg DAILY06 PO Last administered on 10/06/18 05:43; Start 09/23/18 at 06:00 Al Hydroxide/Mg Hydroxide (Mylanta Plus Xs) 15 ml PRN AFTMEALHC PRN PO DYSPEPSIA; Start 09/22/18 at 22:00; Status Cancel Tamsulosin HCl (Flomax) 0.4 mg DAILY PO Last administered on 4/23/19at 12:01; Start 09/23/18 at 09:00 Magnesium Hydroxide (Milk Of Magnesia) 2,400 mg PRN QHS PRN PO CONSTIPATION; Start 09/22/18 at 22:00; Status Cancel Multi-Ingredient Ointment (Analgesic [place]) 1 kita PRN QID PRN TP PAIN / TEMP; Start 09/22/18 at 22:00; Status Cancel Acetaminophen (Tylenol) 650 mg PRN Q6HRS PRN PO PAIN / TEMP Last administered on 10/04/18at 19:32; Start 09/22/18 at 23:00 Al Hydroxide/Mg Hydroxide (Mylanta Plus Xs) 15 ml PRN AFTMEALHC PRN PO DYSPEPSIA; Start 09/22/18 at 23:00 Magnesium Hydroxide (Milk Of Magnesia) 2,400 mg PRN QHS PRN PO CONSTIPATION; Start 09/22/18 at 23:00 Multi-Ingredient Ointment (Analgesic [place]) 1 kita PRN QID PRN TP PAIN / TEMP; Start 09/22/18 at 23:00 Divalproex Sodium (Depakote Sprinkles) 500 mg HS PO Last administered on 10/04/18at 19:28; Start 09/24/18 at 21:00; Stop 10/05/18 at 17:53; Status DC Risperidone (RisperDAL) 1.5 mg BID SL ; Start 09/27/18 at 09:00; Stop 09/27/18 at 09:00; Status DC Risperidone (RisperDAL CONSTA) 12.5 mg Q2WKS IM ; Start 09/30/18 at 09:00; Stop 09/30/18 at 09:00; Status DC Risperidone (RisperDAL CONSTA) 12.5 mg Q2WKS IM Last administered on 09/29/18at 12:51; Start 09/29/18 at 09:00 Risperidone (RisperDAL) 1.5 mg BID SL Last administered on 10/06/18at 19:25; Start 09/26/18 at 21:00 Lorazepam (Ativan) 1 mg 1X ONCE IV ; Start 09/28/18 at 10:00; Stop 09/28/18 at 10:02; Status DC Lorazepam (Ativan) 1 mg 1X ONCE IM Last administered on 09/28/18at 10:12; Start 09/28/18 at 10:30; Stop 09/28/18 at 10:31; Status DC Lorazepam (Ativan) 1 mg DAILY IM Last administered on 10/06/18at 15:07; Start 09/29/18 at 09:00 Divalproex Sodium (Depakote Sprinkles) 500 mg 1200 PO Last administered on 10/06/18at 12:03; Start 10/06/18 at 12:00 Active Scripts Active Reported Namenda (Memantine Hcl) 10 Mg Tablet 10 Mg PO BID Trazodone Hcl 100 Mg Tablet 100 Mg PO HS Fluvoxamine Maleate 100 Mg Cap.er.24h 100 Mg PO HS Seroquel (Quetiapine Fumarate) 25 Mg Tablet 37.5 Mg PO 1800 Seroquel (Quetiapine Fumarate) 50 Mg Tablet 50 Mg PO 1500 Seroquel (Quetiapine Fumarate) 25 Mg Tablet 25 Mg PO DAILY Zyprexa Zydis (Olanzapine) 5 Mg Tab.rapdis 5 Mg PO PRN Q2HR PRN Mirtazapine 15 Mg Tablet 15 Mg PO HS Bengay (Menthol) 113 Gm Gel..gram. 1 Kita TP PRN QID PRN Milk Of Magnesia (Magnesium Hydroxide) 2,400 Mg/10 Ml Oral.susp 2,400 Mg PO PRN QHS PRN Maalox Maximum Strength Susp (Mag Hydrox/Al Hydrox/Simeth) 355 Ml Oral.susp 15 Ml PO PRN AFTMEALHC PRN Depakote Sprinkle (Divalproex Sodium) 125 Mg Cap.sprink 250 Mg PO HS Depakote Sprinkle (Divalproex Sodium) 125 Mg Cap.sprink 125 Mg PO 0900,1200 Bisacodyl 10 Mg/30 Ml Enema 10 Mg RC PRN DAILY PRN Tylenol (Acetaminophen) 325 Mg Tablet 650 Mg PO PRN Q6HRS PRN Tamsulosin Hcl 0.4 Mg Cap.er.24h 0.4 Mg PO DAILY Levothyroxine Sodium 88 Mcg Tablet 88 Mcg PO DAILYAC Rivastigmine (Rivastigmine Tartrate) 1.5 Mg Capsule 3 Mg PO BID I have reviewed the current psychotropics carefully including drug interactions. Risk benefit ratio favors no change other than as noted in my dictated progress note. Diagnosis: Problems: (1) Anxiety disorder (2) Dementia in Alzheimer's disease with delusions (3) Dementia in Alzheimer's disease with depression (4) Dementia, vascular, with delusions (5) Dementia, vascular, with depression (6) Impulse control disorder MILAN TAYLOR MD Oct 06, 2018 22:45
--- NOTE | 2018-10-06 23:19 | PN ---
DATE: 10/05/2018 PSYCHIATRIC PROGRESS NOTE This late entry 10/05/2018 covers elements not covered in my initial note. SUBJECTIVE: I met with the patient in the evening. Reviewed information from Dr. Matute who covered for me for the past several days. The patient slept 7-1/4 hours previous night and slept during the day till noon. He is angry, aggressive, agitated in the evening. REVIEW OF SYSTEMS: No CV, , pulmonary, eye, ENT system symptoms on review. Reliability poor. MENTAL STATUS EXAM: Oriented to himself. Insight, judgment, recent and remote memory, attention, concentration, fund of knowledge poor, consistent with his diagnosis mentioned in my initial note. PLAN: Change the Depakote Sprinkles 500 mg at bedtime to 500 mg at lunchtime to help with this afternoon agitation. Rest unchanged from initial note. MAN Connie TAYLOR MD DR: NATAN/alfredo JOB#: [id number] / [id number]
[2018-10-07] VITALS (7 sets, daily range): BP systolic 55–154; BP diastolic 34–76
[2018-10-07] MEDS: LEVOTHYROXINE 88 MCG TABLET PO SCH (05:32)
[2018-10-07] MEDS: risperiDONE ORAL 1 MG/ML 30ml BOTTLE. SL SCH ×2 (09:00→19:31)
[2018-10-07 10:54] LABS: BASO % 1 % (0-3); EOS # 0.2 x10^3/uL (0.0-0.7); EOS % 3 % (0-3); HEMATOCRIT 37.5 % (39.0-53.0); HEMOGLOBIN 12.6 g/dL (13.0-17.5); LYMPH # 1.5 x10^3/uL (1.0-4.8); LYMPH % 23 % (24-48); MEAN CORPUSCULAR HEMOGLOBIN 31 pg (25-35); MEAN CORPUSCULAR HGB CONC 34 g/dL (31-37); MEAN CORPUSCULAR VOLUME 94 fL (79-100); MONO # 0.7 x10^3/uL (0.0-1.1); MONO % 11 % (0-9); NEUT % 62 % (31-73); PLATELET COUNT 201 x10^3/uL (140-400); RED CELL DISTRIBUTION WIDTH 13.8 % (11.5-14.5); WHITE BLOOD COUNT 6.5 x10^3/uL (4.0-11.0)
[2018-10-07] MEDS: RIVASTIGMINE 3 MG CAPSULE. PO SCH ×2 (10:59→19:30)
[2018-10-07] MEDS: MEMANTINE 10 MG TABLET. PO SCH ×2 (10:59→19:30)
[2018-10-07] MEDS: TAMSULOSIN 0.4 MG CAP.ER.24H. PO SCH (10:59)
[2018-10-07 11:11] LABS: ALBUMIN/GLOBULIN RATIO 0.6 (1.0-1.7); CREATININE 1.2 mg/dL (0.7-1.3); GFR 58.6; TOTAL BILIRUBIN 0.4 mg/dL (0.2-1.0); TOTAL PROTEIN 8.4 g/dL (6.4-8.2)
--- NOTE | 2018-10-07 11:20 | EKG ---
[address] [address] Test Date: 2018-10-07 Test Time: 06:08:09 Pat Name: CRISTINA VALENCIA Department: Room: [address] [place] [address] Gender: M Director E Learning: : 1940 Requested By: MILAN TAYLOR Order Number: [id number] Reading MD: Jimmy Fisher Measurements Intervals [place] Rate: 72 P: -53 [place]: 126 QRS: 24 QRSD: 84 T: 54 QT: 390 QTc: 429 Interpretive Statements SINUS RHYTHM NORMAL ECG RI6.02 Compared to ECG 09/22/2018 18:09:11 No significant changes Electronically Signed On 10-14-2018 11:35:04 CDT by Jimmy Fisher
[2018-10-07] MEDS: DIVALPROEX 125 MG CAP.SPRINK PO SCH (12:12)
[2018-10-07 16:42] LABS: CALCIUM 8.9 mg/dL (8.5-10.1); CREATININE 1.4 mg/dL (0.7-1.3); POTASSIUM 4.3 mmol/L (3.5-5.1)
[2018-10-07] MEDS: QUEtiapine 25 MG TABLET. PO SCH (17:33)
[2018-10-07] MEDS: MIRTAZAPINE 15 MG TABLET PO SCH (19:30)
[2018-10-07] MEDS: traZODone 100 MG TABLET. PO SCH (19:30)
--- NOTE | 2018-10-07 22:46 | PDOC ---
Exam Note: Justin Note: Please also refer to the separate dictated note~for this date of service dictated separately.~Patient seen individually. Discussed the patient with Nursing staff reviewed the chart.~Reviewed interim history and current functioning. Reviewed vital signs,~Labs/ Radiology~and current medications noted below. Continue current treatment with the changes noted in the dictated addendum note Assessment: Vital Signs: Vital Signs Date Time Temp Pulse Resp B/P (MAP) Pulse Ox O2 Delivery O2 Flow Rate FiO2 10/07/18 16:41 98.0 78 16 120/73 (89) 97 10/07/18 06:10 Room Air I&O Intake and Output 10/07/18 07:00 Intake Total 360 ml Balance 360 ml Intake Oral 360 ml Labs: Laboratory Tests Test 10/07/18 10:48 10/07/18 16:25 White Blood Count 6.5 x10^3/uL (4.0-11.0) Red Blood Count 4.00 x10^6/uL (4.30-5.70) L Hemoglobin 12.6 g/dL (13.0-17.5) L Hematocrit 37.5 % (39.0-53.0) L Mean Corpuscular Volume 94 fL (79-100) Mean Corpuscular Hemoglobin 31 pg (25-35) Mean Corpuscular Hemoglobin Concent 34 g/dL (31-37) Red Cell Distribution Width 13.8 % (11.5-14.5) Platelet Count 201 x10^3/uL (140-400) Neutrophils (%) (Auto) 62 % (31-73) Lymphocytes (%) (Auto) 23 % (24-48) L Monocytes (%) (Auto) 11 % (0-9) H Eosinophils (%) (Auto) 3 % (0-3) Basophils (%) (Auto) 1 % (0-3) Neutrophils # (Auto) 4.0 x10^3uL (1.8-7.7) Lymphocytes # (Auto) 1.5 x10^3/uL (1.0-4.8) Monocytes # (Auto) 0.7 x10^3/uL (0.0-1.1) Eosinophils # (Auto) 0.2 x10^3/uL (0.0-0.7) Basophils # (Auto) 0.0 x10^3/uL (0.0-0.2) Sodium Level 145 mmol/L (136-145) 143 mmol/L (136-145) Potassium Level 4.0 mmol/L (3.5-5.1) 4.3 mmol/L (3.5-5.1) Chloride Level 108 mmol/L (98-107) H 106 mmol/L (98-107) Carbon Dioxide Level 29 mmol/L (21-32) 30 mmol/L (21-32) Anion Gap 8 (6-14) 7 (6-14) Blood Urea Nitrogen 41 mg/dL (8-26) H 49 mg/dL (8-26) H Creatinine 1.2 mg/dL (0.7-1.3) 1.4 mg/dL (0.7-1.3) H Estimated GFR (Cockcroft-Gault) 58.6 49.0 BUN/Creatinine Ratio 34 (6-20) H Glucose Level 97 mg/dL (70-99) 102 mg/dL (70-99) H Calcium Level 9.0 mg/dL (8.5-10.1) 8.9 mg/dL (8.5-10.1) Total Bilirubin 0.4 mg/dL (0.2-1.0) Aspartate Amino Transferase (AST) 28 U/L (15-37) Alanine Aminotransferase (ALT) 40 U/L (16-63) Alkaline Phosphatase 108 U/L (46-116) Creatine Kinase 164 U/L (39-308) Total Protein 8.4 g/dL (6.4-8.2) H Albumin 3.0 g/dL (3.4-5.0) L Albumin/Globulin Ratio 0.6 (1.0-1.7) L Lactic Acid Level 1.8 mmol/L (0.4-2.0) Current Medications: Meds: Current Medications Acetaminophen (Tylenol) 650 mg PRN Q6HRS PRN PO PAIN / TEMP; Start 09/22/18 at 21:30; Stop 09/22/18 at 22:50; Status DC Multi-Ingredient Ointment (Analgesic [place]) 1 kita PRN QID PRN TP MUSCLE PAIN; Start 09/22/18 at 21:30; Stop 09/22/18 at 22:50; Status DC Al Hydroxide/Mg Hydroxide (Mylanta Plus Xs) 15 ml PRN AFTMEALHC PRN PO DY SPEPSIA; Start 09/22/18 at 21:30; Stop 09/22/18 at 22:50; Status DC Magnesium Hydroxide (Milk Of Magnesia) 2,400 mg PRN QHS PRN PO CONSTIPATION; Start 09/22/18 at 21:30; Stop 09/22/18 at 22:50; Status DC Olanzapine (ZyPREXA ZYDIS) 5 mg PRN Q2HR PRN PO PSYCHOSIS Last administered on 09/29/18 19:33; Start 09/22/18 at 22:00 Divalproex Sodium (Depakote Sprinkles) 125 mg 0900,1200 PO Last administered on 09/24/18 10:34; Start 09/23/18 at 09:00; Stop 09/24/18 at 11:32; Status DC Divalproex Sodium (Depakote Sprinkles) 250 mg HS PO Last administered on 09/23/18 19:44; Start 09/23/18 at 21:00; Stop 09/24/18 at 11:32; Status DC Fluvoxamine Maleate (Luvox) 100 mg HS PO Last administered on 10/07/18 19:30; Start 09/23/18 at 21:00 Memantine (Namenda) 10 mg BID PO Last administered on 10/07/18 19:30; Start 09/23/18 at 09:00 Mirtazapine (Remeron) 15 mg HS PO Last administered on 10/07/18 19:30; Start 09/23/18 at 21:00 Quetiapine Fumarate (SEROquel) 25 mg DAILY PO Last administered on 09/26/18 09:32; Start 09/23/18 at 09:00; Stop 09/26/18 at 15:31; Status DC Quetiapine Fumarate (SEROquel) 37.5 mg 1800 PO Last administered on 10/07/18 17:33; Start 09/23/18 at 18:00 Quetiapine Fumarate (SEROquel) 50 mg 1500 PO Last administered on 09/26/18 14:34; Start 09/23/18 at 15:00; Stop 09/26/18 at 15:31; Status DC Rivastigmine Tartrate (Exelon) 3 mg BID PO Last administered on 10/07/18 19:30 ; Start 09/23/18 at 09:00 Trazodone HCl (Desyrel) 100 mg HS PO Last administered on 10/07/18 19:30; Start 09/23/18 at 21:00 Acetaminophen (Tylenol) 650 mg PRN Q6HRS PRN PO PAIN / TEMP; Start 09/22/18 at 22:00; Status Cancel Bisacodyl (Fleet Bisacodyl) 10 mg PRN DAILY PRN RC CONSTIPATION; Start 09/22/18 at 22:00 Levothyroxine Sodium (Synthroid) 88 mcg DAILY06 PO Last administered on 10/07/18 05:32; Start 09/23/18 at 06:00 Al Hydroxide/Mg Hydroxide (Mylanta Plus Xs) 15 ml PRN AFTMEALHC PRN PO DYSPEPSIA; Start 09/22/18 at 22:00; Status Cancel Tamsulosin HCl (Flomax) 0.4 mg DAILY PO Last administered on 10/07/18at 10:59; Start 09/23/18 at 09:00 Magnesium Hydroxide (Milk Of Magnesia) 2,400 mg PRN QHS PRN PO CONSTIPATION; Start 09/22/18 at 22:00; Status Cancel Multi-Ingredient Ointment (Analgesic [place]) 1 kita PRN QID PRN TP PAIN / TEMP; Start 09/22/18 at 22:00; Status Cancel Acetaminophen (Tylenol) 650 mg PRN Q6HRS PRN PO PAIN / TEMP Last administered on 10/04/18at 19:32; Start 09/22/18 at 23:00 Al Hydroxide/Mg Hydroxide (Mylanta Plus Xs) 15 ml PRN AFTMEALHC PRN PO DYSPEPSIA; Start 09/22/18 at 23:00 Magnesium Hydroxide (Milk Of Magnesia) 2,400 mg PRN QHS PRN PO CONSTIPATION; Start 09/22/18 at 23:00 Multi-Ingredient Ointment (Analgesic [place]) 1 kita PRN QID PRN TP PAIN / TEMP; Start 09/22/18 at 23:00 Divalproex Sodium (Depakote Sprinkles) 500 mg HS PO Last administered on 10/04/18at 19:28; Start 09/24/18 at 21:00; Stop 10/05/18 at 17:53; Status DC Risperidone (RisperDAL) 1.5 mg BID SL ; Start 09/27/18 at 09:00; Stop 09/27/18 at 09:00; Status DC Risperidone (RisperDAL CONSTA) 12.5 mg Q2WKS IM ; Start 09/30/18 at 09:00; Stop 09/30/18 at 09:00; Status DC Risperidone (RisperDAL CONSTA) 12.5 mg Q2WKS IM Last administered on 09/29/18at 12:51; Start 09/29/18 at 09:00 Risperidone (RisperDAL) 1.5 mg BID SL Last administered on 10/07/18at 19:31; Start 09/26/18 at 21:00 Lorazepam (Ativan) 1 mg 1X ONCE IV ; Start 09/28/18 at 10:00; Stop 09/28/18 at 10:02; Status DC Lorazepam (Ativan) 1 mg 1X ONCE IM Last administered on 09/28/18at 10:12; Start 09/28/18 at 10:30; Stop 09/28/18 at 10:31; Status DC Lorazepam (Ativan) 1 mg DAILY IM Last administered on 10/07/18at 14:33; Start 09/29/18 at 09:00 Divalproex Sodium (Depakote Sprinkles) 500 mg 1200 PO Last administered on 10/07/18at 12:12; Start 10/06/18 at 12:00 Active Scripts Active Reported Namenda (Memantine Hcl) 10 Mg Tablet 10 Mg PO BID Trazodone Hcl 100 Mg Tablet 100 Mg PO HS Fluvoxamine Maleate 100 Mg Cap.er.24h 100 Mg PO HS Seroquel (Quetiapine Fumarate) 25 Mg Tablet 37.5 Mg PO 1800 Seroquel (Quetiapine Fumarate) 50 Mg Tablet 50 Mg PO 1500 Seroquel (Quetiapine Fumarate) 25 Mg Tablet 25 Mg PO DAILY Zyprexa Zydis (Olanzapine) 5 Mg Tab.rapdis 5 Mg PO PRN Q2HR PRN Mirtazapine 15 Mg Tablet 15 Mg PO HS Bengay (Menthol) 113 Gm Gel..gram. 1 Kita TP PRN QID PRN Milk Of Magnesia (Magnesium Hydroxide) 2,400 Mg/10 Ml Oral.susp 2,400 Mg PO PRN QHS PRN Maalox Maximum Strength Susp (Mag Hydrox/Al Hydrox/Simeth) 355 Ml Oral.susp 15 Ml PO PRN AFTMEALHC PRN Depakote Sprinkle (Divalproex Sodium) 125 Mg Cap.sprink 250 Mg PO HS Depakote Sprinkle (Divalproex Sodium) 125 Mg Cap.sprink 125 Mg PO 0900,1200 Bisacodyl 10 Mg/30 Ml Enema 10 Mg RC PRN DAILY PRN Tylenol (Acetaminophen) 325 Mg Tablet 650 Mg PO PRN Q6HRS PRN Tamsulosin Hcl 0.4 Mg Cap.er.24h 0.4 Mg PO DAILY Levothyroxine Sodium 88 Mcg Tablet 88 Mcg PO DAILYAC Rivastigmine (Rivastigmine Tartrate) 1.5 Mg Capsule 3 Mg PO BID I have reviewed the current psychotropics carefully including drug interactions. Risk benefit ratio favors no change other than as noted in my dictated progress note. Diagnosis: Problems: (1) Anxiety disorder (2) Dementia in Alzheimer's disease with delusions (3) Dementia in Alzheimer's disease with depression (4) Dementia, vascular, with delusions (5) Dementia, vascular, with depression (6) Impulse control disorder MILAN TAYLOR MD Oct 07, 2018 22:46
--- NOTE | 2018-10-08 02:05 | PN ---
DATE: 10/06/2018 PSYCHIATRIC PROGRESS NOTE This late entry 10/06/2018 covers elements not covered in my initial note. SUBJECTIVE: I met with the patient in the evening. The patient slept 2-3/4 hours previous night, then slept until noon on 10/06/2018. He received Ativan IM at bedtime. During the day on 10/06/2018, he was agitated at [facility] he got Ativan p.r.n., then did better. Physical therapy, walked with him and this was helpful for his agitation as well. REVIEW OF SYSTEMS: No CV, , pulmonary, eye, ENT system symptoms on review. Reliability poor. MENTAL STATUS EXAM: Oriented to himself. Insight, judgment, recent and remote memory, attention, concentration, fund of knowledge poor, consistent with his diagnosis mentioned in my initial note. PLAN: No change from initial note. MILAN TAYLOR MD DR: NATAN/alfredo JOB#: [id number] / [id number]
[2018-10-08] MEDS: LEVOTHYROXINE 88 MCG TABLET PO SCH (05:46)
[2018-10-08 05:48] VITALS: BP 155/84
[2018-10-08] MEDS: MEMANTINE 10 MG TABLET. PO SCH ×2 (09:01→19:59)
[2018-10-08] MEDS: TAMSULOSIN 0.4 MG CAP.ER.24H. PO SCH (09:06)
[2018-10-08] MEDS: RIVASTIGMINE 3 MG CAPSULE. PO SCH ×2 (09:06→19:59)
[2018-10-08] MEDS: risperiDONE ORAL 1 MG/ML 30ml BOTTLE. SL SCH ×2 (09:09→19:59)
[2018-10-08] MEDS: DIVALPROEX 125 MG CAP.SPRINK PO SCH (12:20)
[2018-10-08 16:16] VITALS: BP 110/58
[2018-10-08] MEDS: QUEtiapine 25 MG TABLET. PO SCH (18:11)
[2018-10-08 19:59] VITALS: BP 134/97
[2018-10-08] MEDS: traZODone 100 MG TABLET. PO SCH (19:59)
[2018-10-08] MEDS: MIRTAZAPINE 15 MG TABLET PO SCH (19:59)
--- NOTE | 2018-10-08 22:56 | PDOC ---
Exam Note: Justin Note: Please also refer to the separate dictated note~for this date of service dictated separately.~Patient seen individually. Discussed the patient with Nursing staff reviewed the chart.~Reviewed interim history and current functioning. Reviewed vital signs,~Labs/ Radiology~and current medications noted below. Continue current treatment with the changes noted in the dictated addendum note Assessment: Vital Signs: Vital Signs Date Time Temp Pulse Resp B/P (MAP) Pulse Ox O2 Delivery O2 Flow Rate FiO2 10/08/18 19:59 93 20 134/97 (109) 100 Room Air 10/08/18 16:16 97.6 I&O Intake and Output 10/08/18 07:00 Intake Total 480 ml Balance 480 ml Intake Oral 480 ml Current Medications: Meds: Current Medications Acetaminophen (Tylenol) 650 mg PRN Q6HRS PRN PO PAIN / TEMP; Start 09/22/18 at 21:30; Stop 09/22/18 at 22:50; Status DC Multi-Ingredient Ointment (Analgesic [place]) 1 kita PRN QID PRN TP MUSCLE PAIN; Start 09/22/18 at 21:30; Stop 09/22/18 at 22:50; Status DC Al Hydroxide/Mg Hydroxide (Mylanta Plus Xs) 15 ml PRN AFTMEALHC PRN PO DYS PEPSIA; Start 09/22/18 at 21:30; Stop 09/22/18 at 22:50; Status DC Magnesium Hydroxide (Milk Of Magnesia) 2,400 mg PRN QHS PRN PO CONSTIPATION; Start 09/22/18 at 21:30; Stop 09/22/18 at 22:50; Status DC Olanzapine (ZyPREXA ZYDIS) 5 mg PRN Q2HR PRN PO PSYCHOSIS Last administered on 09/29/18at 19:33; Start 09/22/18 at 22:00 Divalproex Sodium (Depakote Sprinkles) 125 mg 0900,1200 PO Last administered on 09/24/18at 10:34; Start 09/23/18 at 09:00; Stop 09/24/18 at 11:32; Status DC Divalproex Sodium (Depakote Sprinkles) 250 mg HS PO Last administered on 09/23/18at 19:44; Start 09/23/18 at 21:00; Stop 09/24/18 at 11:32; Status DC Fluvoxamine Maleate (Luvox) 100 mg HS PO Last administered on 10/08/18 19:59; Start 09/23/18 at 21:00 Memantine (Namenda) 10 mg BID PO Last administered on 10/08/18 19:59; Start 09/23/18 at 09:00 Mirtazapine (Remeron) 15 mg HS PO Last administered on 10/08/18 19:59; Start 09/23/18 at 21:00 Quetiapine Fumarate (SEROquel) 25 mg DAILY PO Last administered on 09/26/18 09:32; Start 09/23/18 at 09:00; Stop 09/26/18 at 15:31; Status DC Quetiapine Fumarate (SEROquel) 37.5 mg 1800 PO Last administered on 10/07/18 17:33; Start 09/23/18 at 18:00; Stop 10/08/18 at 11:09; Status DC Quetiapine Fumarate (SEROquel) 50 mg 1500 PO Last administered on 09/26/18 14:34; Start 09/23/18 at 15:00; Stop 09/26/18 at 15:31; Status DC Rivastigmine Tartrate (Exelon) 3 mg BID PO Last administered on 10/08/18 19:59; Start 09/23/18 at 09:00 Trazodone HCl (Desyrel) 100 mg HS PO Last administered on 10/08/18 19:59; Start 09/23/18 at 21:00 Acetaminophen (Tylenol) 650 mg PRN Q6HRS PRN PO PAIN / TEMP; Start 09/22/18 at 22:00; Status Cancel Bisacodyl (Fleet Bisacodyl) 10 mg PRN DAILY PRN RC CONSTIPATION; Start 09/22/18 at 22:00 Levothyroxine Sodium (Synthroid) 88 mcg DAILY06 PO Last administered on 10/08/18 05:46; Start 09/23/18 at 06:00 Al Hydroxide/Mg Hydroxide (Mylanta Plus Xs) 15 ml PRN AFTMEALHC PRN PO DYSPEPSIA; Start 09/22/18 at 22:00; Status Cancel Tamsulosin HCl (Flomax) 0.4 mg DAILY PO Last administered on 10/08/18at 09:06; Start 09/23/18 at 09:00 Magnesium Hydroxide (Milk Of Magnesia) 2,400 mg PRN QHS PRN PO CONSTIPATION; Start 09/22/18 at 22:00; Status Cancel Multi-Ingredient Ointment (Analgesic [place]) 1 kita PRN QID PRN TP PAIN / TEMP; Start 09/22/18 at 22:00; Status Cancel Acetaminophen (Tylenol) 650 mg PRN Q6HRS PRN PO PAIN / TEMP Last administered on 10/04/18at 19:32; Start 09/22/18 at 23:00 Al Hydroxide/Mg Hydroxide (Mylanta Plus Xs) 15 ml PRN AFTMEALHC PRN PO DYSPEPSIA; Start 09/22/18 at 23:00 Magnesium Hydroxide (Milk Of Magnesia) 2,400 mg PRN QHS PRN PO CONSTIPATION; Start 09/22/18 at 23:00 Multi-Ingredient Ointment (Analgesic [place]) 1 kita PRN QID PRN TP PAIN / TEMP; Start 09/22/18 at 23:00 Divalproex Sodium (Depakote Sprinkles) 500 mg HS PO Last administered on 10/04/18at 19:28; Start 09/24/18 at 21:00; Stop 10/05/18 at 17:53; Status DC Risperidone (RisperDAL) 1.5 mg BID SL ; Start 09/27/18 at 09:00; Stop 09/27/18 at 09:00; Status DC Risperidone (RisperDAL CONSTA) 12.5 mg Q2WKS IM ; Start 09/30/18 at 09:00; Stop 09/30/18 at 09:00; Status DC Risperidone (RisperDAL [place]) 12.5 mg Q2WKS IM Last administered on 09/29/18at 12:51; Start 09/29/18 at 09:00 Risperidone (RisperDAL) 1.5 mg BID SL Last administered on 10/08/18at 19:59; Start 09/26/18 at 21:00 Lorazepam (Ativan) 1 mg 1X ONCE IV ; Start 09/28/18 at 10:00; Stop 09/28/18 at 10:02; Status DC Lorazepam (Ativan) 1 mg 1X ONCE IM Last administered on 09/28/18at 10:12; Start 09/28/18 at 10:30; Stop 09/28/18 at 10:31; Status DC Lorazepam (Ativan) 1 mg DAILY IM Last administered on 10/08/18at 09:07; Start 09/29/18 at 09:00 Divalproex Sodium (Depakote Sprinkles) 500 mg 1200 PO Last administered on 10/08/18at 12:20; Start 10/06/18 at 12:00 Quetiapine Fumarate (SEROquel) 25 mg 1800 PO Last administered on 10/08/18at 18:11; Start 10/08/18 at 18:00; Stop 10/10/18 at 09:00 Quetiapine Fumarate (SEROquel) 12.5 mg DAILY@1800 PO ; Start 10/10/18 at 18:00; Stop 10/12/18 at 09:00 Active Scripts Active Reported Namenda (Memantine Hcl) 10 Mg Tablet 10 Mg PO BID Trazodone Hcl 100 Mg Tablet 100 Mg PO HS Fluvoxamine Maleate 100 Mg Cap.er.24h 100 Mg PO HS Seroquel (Quetiapine Fumarate) 25 Mg Tablet 37.5 Mg PO 1800 Seroquel (Quetiapine Fumarate) 50 Mg Tablet 50 Mg PO 1500 Seroquel (Quetiapine Fumarate) 25 Mg Tablet 25 Mg PO DAILY Zyprexa Zydis (Olanzapine) 5 Mg Tab.rapdis 5 Mg PO PRN Q2HR PRN Mirtazapine 15 Mg Tablet 15 Mg PO HS [place] (Menthol) 113 Gm Gel..gram. 1 Kita TP PRN QID PRN Milk Of Magnesia (Magnesium Hydroxide) 2,400 Mg/10 Ml Oral.susp 2,400 Mg PO PRN QHS PRN Maalox Maximum Strength Susp (Mag Hydrox/Al Hydrox/Simeth) 355 Ml Oral.susp 15 Ml PO PRN AFTMEALHC PRN Depakote Sprinkle (Divalproex Sodium) 125 Mg Cap.sprink 250 Mg PO HS Depakote Sprinkle (Divalproex Sodium) 125 Mg Cap.sprink 125 Mg PO 0900,1200 Bisacodyl 10 Mg/30 Ml Enema 10 Mg RC PRN DAILY PRN Tylenol (Acetaminophen) 325 Mg Tablet 650 Mg PO PRN Q6HRS PRN Tamsulosin Hcl 0.4 Mg Cap.er.24h 0.4 Mg PO DAILY Levothyroxine Sodium 88 Mcg Tablet 88 Mcg PO DAILYAC Rivastigmine (Rivastigmine Tartrate) 1.5 Mg Capsule 3 Mg PO BID I have reviewed the current psychotropics carefully including drug interactions. Risk benefit ratio favors no change other than as noted in my dictated progress note. Diagnosis: Problems: (1) Anxiety disorder (2) Dementia in Alzheimer's disease with delusions (3) Dementia in Alzheimer's disease with depression (4) Dementia, vascular, with delusions (5) Dementia, vascular, with depression (6) Impulse control disorder MILAN TAYLOR MD Oct 08, 2018 22:56
[2018-10-09] MEDS: LEVOTHYROXINE 88 MCG TABLET PO SCH (05:56)
[2018-10-09 06:10] VITALS: BP 134/73
[2018-10-09] MEDS: risperiDONE ORAL 1 MG/ML 30ml BOTTLE. SL SCH ×2 (11:42→19:49)
[2018-10-09] MEDS: MEMANTINE 10 MG TABLET. PO SCH ×2 (11:43→19:29)
[2018-10-09] MEDS: TAMSULOSIN 0.4 MG CAP.ER.24H. PO SCH (11:43)
[2018-10-09] MEDS: RIVASTIGMINE 3 MG CAPSULE. PO SCH ×2 (11:43→19:28)
[2018-10-09 12:45] LABS: BILIRUBIN,URINE NEG (NEG); CLARITY,URINE CLOUDY; COLOR,URINE AMBER; GLUCOSE,URINE NEG (NEG)
[2018-10-09 12:46] LABS: BACTERIA,URINE FEW /HPF (0-FEW); HYALINE CASTS, URINE MANY /HPF; NITRITE,URINE NEG (NEG); RBC,URINE >40 /HPF (0-2); UROBILINOGEN,URINE 0.2 mg/dL (0.2 mg/dL)
[2018-10-09] MEDS: DIVALPROEX 125 MG CAP.SPRINK PO SCH (15:08)
[2018-10-09 16:12] VITALS: BP 124/70
[2018-10-09] MEDS: QUEtiapine 25 MG TABLET. PO SCH (17:23)
[2018-10-09] MEDS: MIRTAZAPINE 15 MG TABLET PO SCH (19:28)
[2018-10-09] MEDS: traZODone 100 MG TABLET. PO SCH (19:28)
[2018-10-09] MEDS ORDERED: DOCUSATE SODIUM 100 MG CAPSULE PO SCH (21:00)
--- NOTE | 2018-10-09 22:38 | PDOC ---
Exam Note: Justin Note: Please also refer to the separate dictated note~for this date of service dictated separately.~Patient seen individually. Discussed the patient with Nursing staff reviewed the chart.~Reviewed interim history and current functioning. Reviewed vital signs,~Labs/ Radiology~and current medications noted below. Continue current treatment with the changes noted in the dictated addendum note Assessment: Vital Signs: Vital Signs Date Time Temp Pulse Resp B/P (MAP) Pulse Ox O2 Delivery O2 Flow Rate FiO2 10/09/18 16:12 98.1 79 17 124/70 (88) 96 Room Air I&O Intake and Output 10/09/18 07:00 Intake Total 1080 ml Balance 1080 ml Intake Oral 1080 ml Labs: Laboratory Tests Test 10/09/18 12:25 Urine Collection Type Unknown Urine Color Mary Urine Clarity Cloudy Urine pH 6.5 Urine Specific [place] 1.020 Urine Protein 30 mg/dl (NEG-TRACE) Urine Glucose (UA) Neg mg/dL (NEG) Urine Ketones (Stick) 15 mg/dL (NEG) Urine Blood Large (NEG) Urine Nitrite Neg (NEG) Urine Bilirubin Neg (NEG) Urine Urobilinogen Dipstick 0.2 mg/dL (0.2 mg/dL) Urine Leukocyte Esterase Trace (NEG) Urine RBC >40 /HPF (0-2) Urine WBC 1-4 /HPF (0-4) Urine Squamous Epithelial Cells None /LPF Urine Bacteria Few /HPF (0-FEW) Urine Hyaline Casts Many /HPF Urine Mucus Mod /LPF Current Medications: Meds: Current Medications Acetaminophen (Tylenol) 650 mg PRN Q6HRS PRN PO PAIN / TEMP; Start 09/22/18 at 21:30; Stop 09/22/18 at 22:50; Status DC Multi-Ingredient Ointment (Analgesic [place]) 1 kita PRN QID PRN TP MUSCLE PAIN; Start 09/22/18 at 21:30; Stop 09/22/18 at 22:50; Status DC Al Hydroxide/Mg Hydroxide (Mylanta Plus Xs) 15 ml PRN AFTMEALHC PRN PO DYSPEPSIA; Start 09/22/18 at 21:30; Stop 09/22/18 at 22:50; Status DC Magnesium Hydroxide (Milk Of Magnesia) 2,400 mg PRN QHS PRN PO CONSTIPATION; Start 09/22/18 at 21:30; Stop 09/22/18 at 22:50; Status DC Olanzapine (ZyPREXA ZYDIS) 5 mg PRN Q2HR PRN PO PSYCHOSIS Last administered on 10/09/18 21:38; Start 09/22/18 at 22:00 Divalproex Sodium (Depakote Sprinkles) 125 mg 0900,1200 PO Last administered on 09/24/18 10:34; Start 09/23/18 at 09:00; Stop 09/24/18 at 11:32; Status DC Divalproex Sodium (Depakote Sprinkles) 250 mg HS PO Last administered on 09/23/18 19:44; Start 09/23/18 at 21:00; Stop 09/24/18 at 11:32; Status DC Fluvoxamine Maleate (Luvox) 100 mg HS PO Last administered on 10/09/18 19:28; Start 09/23/18 at 21:00 Memantine (Namenda) 10 mg BID PO Last administered on 10/09/18 19:29; Start 09/23/18 at 09:00 Mirtazapine (Remeron) 15 mg HS PO Last administered on 10/09/18 19:28; Start 09/23/18 at 21:00 Quetiapine Fumarate (SEROquel) 25 mg DAILY PO Last administered on 09/26/18 09:32; Start 09/23/18 at 09:00; Stop 09/26/18 at 15:31; Status DC Quetiapine Fumarate (SEROquel) 37.5 mg 1800 PO Last administered on 10/07/18 17:33; Start 09/23/18 at 18:00; Stop 10/08/18 at 11:09; Status DC Quetiapine Fumarate (SEROquel) 50 mg 1500 PO Last administered on 09/26/18 14:34; Start 09/23/18 at 15:00; Stop 09/26/18 at 15:31; Status DC Rivastigmine Tartrate (Exelon) 3 mg BID PO Last administered on 10/09/18 19:28; Start 09/23/18 at 09:00 Trazodone HCl (Desyrel) 100 mg HS PO Last administered on 10/09/18 19:28; Start 09/23/18 at 21:00 Acetaminophen (Tylenol) 650 mg PRN Q6HRS PRN PO PAIN / TEMP; Start 09/22/18 at 22:00; Status Cancel Bisacodyl (Fleet Bisacodyl) 10 mg PRN DAILY PRN RC CONSTIPATION; Start 09/22/18 at 22:00 Levothyroxine Sodium (Synthroid) 88 mcg DAILY06 PO Last administered on 10/09/18at 05:56; Start 09/23/18 at 06:00 Al Hydroxide/Mg Hydroxide (Mylanta Plus Xs) 15 ml PRN AFTMEALHC PRN PO DYSPEPSIA; Start 09/22/18 at 22:00; Status Cancel Tamsulosin HCl (Flomax) 0.4 mg DAILY PO Last administered on 10/09/18at 11:43; Start 09/23/18 at 09:00 Magnesium Hydroxide (Milk Of Magnesia) 2,400 mg PRN QHS PRN PO CONSTIPATION; Start 09/22/18 at 22:00; Status Cancel Multi-Ingredient Ointment (Analgesic [place]) 1 kita PRN QID PRN TP PAIN / TEMP; Start 09/22/18 at 22:00; Status Cancel Acetaminophen (Tylenol) 650 mg PRN Q6HRS PRN PO PAIN / TEMP Last administered on 10/04/18at 19:32; Start 09/22/18 at 23:00 Al Hydroxide/Mg Hydroxide (Mylanta Plus Xs) 15 ml PRN AFTMEALHC PRN PO DYSPEPSIA; Start 09/22/18 at 23:00 Magnesium Hydroxide (Milk Of Magnesia) 2,400 mg PRN QHS PRN PO CONSTIPATION; Start 09/22/18 at 23:00 Multi-Ingredient Ointment (Analgesic [place]) 1 kita PRN QID PRN TP PAIN / TEMP; Start 09/22/18 at 23:00 Divalproex Sodium (Depakote Sprinkles) 500 mg HS PO Last administered on 10/04/18at 19:28; Start 09/24/18 at 21:00; Stop 10/05/18 at 17:53; Status DC Risperidone (RisperDAL) 1.5 mg BID SL ; Start 09/27/18 at 09:00; Stop 09/27/18 at 09:00; Status DC Risperidone (RisperDAL CONSTA) 12.5 mg Q2WKS IM ; Start 09/30/18 at 09:00; Stop 09/30/18 at 09:00; Status DC Risperidone (RisperDAL CONSTA) 12.5 mg Q2WKS IM Last administered on 09/29/18at 12:51; Start 09/29/18 at 09:00 Risperidone (RisperDAL) 1.5 mg BID SL Last administered on 10/09/18at 19:49; Start 09/26/18 at 21:00 Lorazepam (Ativan) 1 mg 1X ONCE IV ; Start 09/28/18 at 10:00; Stop 09/28/18 at 10:02; Status DC Lorazepam (Ativan) 1 mg 1X ONCE IM Last administered on 09/28/18at 10:12; Start 09/28/18 at 10:30; Stop 09/28/18 at 10:31; Status DC Lorazepam (Ativan) 1 mg DAILY IM Last administered on 10/08/18at 09:07; Start 09/29/18 at 09:00 Divalproex Sodium (Depakote Sprinkles) 500 mg 1200 PO Last administered on 10/09/18at 15:08; Start 10/06/18 at 12:00 Quetiapine Fumarate (SEROquel) 25 mg 1800 PO Last administered on 10/09/18at 17:23; Start 10/08/18 at 18:00; Stop 10/10/18 at 09:00 Quetiapine Fumarate (SEROquel) 12.5 mg DAILY@1800 PO ; Start 10/10/18 at 18:00; Stop 10/12/18 at 09:00 Docusate Sodium (Colace) 100 mg BID PO Last administered on 10/09/18at 19:49; Start 10/09/18 at 21:00 Polyethylene Glycol (miraLAX) 17 gm DAILY PO ; Start 10/10/18 at 09:00 Active Scripts Active Reported Namenda (Memantine Hcl) 10 Mg Tablet 10 Mg PO BID Trazodone Hcl 100 Mg Tablet 100 Mg PO HS Fluvoxamine Maleate 100 Mg Cap.er.24h 100 Mg PO HS Seroquel (Quetiapine Fumarate) 25 Mg Tablet 37.5 Mg PO 1800 Seroquel (Quetiapine Fumarate) 50 Mg Tablet 50 Mg PO 1500 Seroquel (Quetiapine Fumarate) 25 Mg Tablet 25 Mg PO DAILY Zyprexa Zydis (Olanzapine) 5 Mg Tab.rapdis 5 Mg PO PRN Q2HR PRN Mirtazapine 15 Mg Tablet 15 Mg PO HS Beng[place] (Menthol) 113 Gm Gel..gram. 1 Kita TP PRN QID PRN Milk Of Magnesia (Magnesium Hydroxide) 2,400 Mg/10 Ml Oral.susp 2,400 Mg PO PRN QHS PRN Maalox Maximum Strength Susp (Mag Hydrox/Al Hydrox/Simeth) 355 Ml Oral.susp 15 Ml PO PRN AFTMEALHC PRN Depakote Sprinkle (Divalproex Sodium) 125 Mg Cap.sprink 250 Mg PO HS Depakote Sprinkle (Divalproex Sodium) 125 Mg Cap.sprink 125 Mg PO 0900,1200 Bisacodyl 10 Mg/30 Ml Enema 10 Mg RC PRN DAILY PRN Tylenol (Acetaminophen) 325 Mg Tablet 650 Mg PO PRN Q6HRS PRN Tamsulosin Hcl 0.4 Mg Cap.er.24h 0.4 Mg PO DAILY Levothyroxine Sodium 88 Mcg Tablet 88 Mcg PO DAILYAC Rivastigmine (Rivastigmine Tartrate) 1.5 Mg Capsule 3 Mg PO BID I have reviewed the current psychotropics carefully including drug interactions. Risk benefit ratio favors no change other than as noted in my dictated progress note. Diagnosis: Problems: (1) Anxiety disorder (2) Dementia in Alzheimer's disease with delusions (3) Dementia in Alzheimer's disease with depression (4) Dementia, vascular, with delusions (5) Dementia, vascular, with depression (6) Impulse control disorder MILAN TAYLOR MD Oct 09, 2018 22:38
--- NOTE | 2018-10-10 00:31 | PN ---
DATE: 10/07/2018 PSYCHIATRIC PROGRESS NOTE This late entry 10/07/2018 covers elements not covered in my initial note. SUBJECTIVE: I met with the patient in the evening. The patient slept 5-1/2 hours previous night. His BP was low. Dr. Fournier started IV, he pulled it out after 600 mL. Vitals were back to normal fairly quickly. He was agitated, received IM Ativan at 9:00 a.m. REVIEW OF SYSTEMS: No CV, , pulmonary, eye, ENT system symptoms on review. Reliability poor. MENTAL STATUS EXAM: Oriented to himself. Insight, judgment, recent and remote memory, attention, concentration, fund of knowledge poor, consistent with his diagnosis mentioned in my initial note. PLAN: No change from initial note. MAN Connie TAYLOR MD DR: NATAN/alfredo JOB#: [id number] / [id number]
--- NOTE | 2018-10-10 00:57 | PN ---
DATE: 10/08/2018 PSYCHIATRIC PROGRESS NOTE This late entry 10/08/2018 covers elements not covered in my initial note. SUBJECTIVE: I met with the patient early afternoon, staffed at a treatment team meeting in the morning. The patient remains on Risperdal Consta and we will go ahead and taper the Seroquel since he had an episode of hypotension the day before, though it is not entirely clear about the sena of this. Discussion will be held with the family about possible hospice care. Reviewed his progress at the treatment team meeting. REVIEW OF SYSTEMS: No CV, , pulmonary, eye, ENT system symptoms on review. Reliability poor. MENTAL STATUS EXAM: Oriented to himself. Insight, judgment, recent and remote memory, attention, concentration, fund of knowledge poor, consistent with his diagnosis mentioned in my initial note. PLAN: No change from initial note other than what is noted above. MAN Connie TAYLOR MD DR: NATAN/alfredo JOB#: [id number] / [id number]
[2018-10-10] MEDS: LEVOTHYROXINE 88 MCG TABLET PO SCH (05:30)
[2018-10-10 06:16] VITALS: BP 115/63
[2018-10-10] MEDS: risperiDONE ORAL 1 MG/ML 30ml BOTTLE. SL SCH ×2 (09:00→19:37)
[2018-10-10] MEDS: DOCUSATE 100 MG/10 ML SOLUTION. PO SCH ×2 (12:25→19:28)
[2018-10-10] MEDS: TAMSULOSIN 0.4 MG CAP.ER.24H. PO SCH (12:26)
[2018-10-10] MEDS: MEMANTINE 10 MG TABLET. PO SCH ×2 (12:26→19:28)
[2018-10-10] MEDS: RIVASTIGMINE 3 MG CAPSULE. PO SCH ×2 (12:26→19:28)
[2018-10-10] MEDS: DIVALPROEX 125 MG CAP.SPRINK PO SCH (12:27)
[2018-10-10] MEDS: POLYETHYLENE GLYCOL 3350 17 GM PACKET. PO SCH (12:31)
[2018-10-10 15:54] VITALS: BP 95/58
[2018-10-10] MEDS: QUEtiapine 25 MG TABLET. PO SCH (17:17)
[2018-10-10] MEDS: MIRTAZAPINE 15 MG TABLET PO SCH (19:28)
[2018-10-10] MEDS: traZODone 100 MG TABLET. PO SCH (19:36)
--- NOTE | 2018-10-10 22:47 | PDOC ---
Exam Note: Justin Note: Please also refer to the separate dictated note~for this date of service dictated separately.~Patient seen individually. Discussed the patient with Nursing staff reviewed the chart.~Reviewed interim history and current functioning. Reviewed vital signs,~Labs/ Radiology~and current medications noted below. Continue current treatment with the changes noted in the dictated addendum note Assessment: Vital Signs: Vital Signs Date Time Temp Pulse Resp B/P (MAP) Pulse Ox O2 Delivery O2 Flow Rate FiO2 10/10/18 15:54 97.5 85 18 95/58 (70) 97 Room Air I&O Intake and Output 10/10/18 07:00 Intake Total 960 ml Balance 960 ml Intake Oral 960 ml # Voids 1 # Bowel Movements 1 Current Medications: Meds: Current Medications Acetaminophen (Tylenol) 650 mg PRN Q6HRS PRN PO PAIN / TEMP; Start 09/22/18 at 21:30; Stop 09/22/18 at 22:50; Status DC Multi-Ingredient Ointment (Analgesic [place]) 1 kita PRN QID PRN TP MUSCLE PAIN; Start 09/22/18 at 21:30; Stop 09/22/18 at 22:50; Status DC Al Hydroxide/Mg Hydroxide (Mylanta Plus Xs) 15 ml PRN AFTMEALHC PRN PO DYSPEPSIA; Start 09/22/18 at 21:30; Stop 09/22/18 at 22:50; Status DC Magnesium Hydroxide (Milk Of Magnesia) 2,400 mg PRN QHS PRN PO CONSTIPATION; Start 09/22/18 at 21:30; Stop 09/22/18 at 22:50; Status DC Olanzapine (ZyPREXA ZYDIS) 5 mg PRN Q2HR PRN PO PSYCHOSIS Last administered on 10/09/18at 21:38; Start 09/22/18 at 22:00 Divalproex Sodium (Depakote Sprinkles) 125 mg 0900,1200 PO Last administered on 09/24/18at 10:34; Start 09/23/18 at 09:00; Stop 09/24/18 at 11:32; Status DC Divalproex Sodium (Depakote Sprinkles) 250 mg HS PO Last administered on 09/23/18at 19:44; Start 09/23/18 at 21:00; Stop 09/24/18 at 11:32; Status DC Fluvoxamine Maleate (Luvox) 100 mg HS PO Last administered on 10/10/18 19:29; Start 09/23/18 at 21:00 Memantine (Namenda) 10 mg BID PO Last administered on 10/10/18 19:28; Start 09/23/18 at 09:00; Stop 10/10/18 at 20:58; Status DC Mirtazapine (Remeron) 15 mg HS PO Last administered on 10/10/18 19:28; Start 09/23/18 at 21:00 Quetiapine Fumarate (SEROquel) 25 mg DAILY PO Last administered on 09/26/18 09:32; Start 09/23/18 at 09:00; Stop 09/26/18 at 15:31; Status DC Quetiapine Fumarate (SEROquel) 37.5 mg 1800 PO Last administered on 10/07/18 17:33; Start 09/23/18 at 18:00; Stop 10/08/18 at 11:09; Status DC Quetiapine Fumarate (SEROquel) 50 mg 1500 PO Last administered on 09/26/18at 14:34; Start 09/23/18 at 15:00; Stop 09/26/18 at 15:31; Status DC Rivastigmine Tartrate (Exelon) 3 mg BID PO Last administered on 10/10/18 19:28; Start 09/23/18 at 09:00 Trazodone HCl (Desyrel) 100 mg HS PO Last administered on 10/10/18at 19:36; Start 09/23/18 at 21:00 Acetaminophen (Tylenol) 650 mg PRN Q6HRS PRN PO PAIN / TEMP; Start 09/22/18 at 22:00; Status Cancel Bisacodyl (Fleet Bisacodyl) 10 mg PRN DAILY PRN RC CONSTIPATION; Start 09/22/18 at 22:00 Levothyroxine Sodium (Synthroid) 88 mcg DAILY06 PO Last administered on 10/10/18at 05:30; Start 09/23/18 at 06:00 Al Hydroxide/Mg Hydroxide (Mylanta Plus Xs) 15 ml PRN AFTMEALHC PRN PO DYSPEPSIA; Start 09/22/18 at 22:00; Status Cancel Tamsulosin HCl (Flomax) 0.4 mg DAILY PO Last administered on 10/10/18at 12:26; Start 09/23/18 at 09:00 Magnesium Hydroxide (Milk Of Magnesia) 2,400 mg PRN QHS PRN PO CONSTIPATION; Start 09/22/18 at 22:00; Status Cancel Multi-Ingredient Ointment (Analgesic Rio) 1 kita PRN QID PRN TP PAIN / TEMP; Start 09/22/18 at 22:00; Status Cancel Acetaminophen (Tylenol) 650 mg PRN Q6HRS PRN PO PAIN / TEMP Last administered on 10/04/18at 19:32; Start 09/22/18 at 23:00 Al Hydroxide/Mg Hydroxide (Mylanta Plus Xs) 15 ml PRN AFTMEALHC PRN PO DYSPEPSIA; Start 09/22/18 at 23:00 Magnesium Hydroxide (Milk Of Magnesia) 2,400 mg PRN QHS PRN PO CONSTIPATION; Start 09/22/18 at 23:00 Multi-Ingredient Ointment (Analgesic Rio) 1 kita PRN QID PRN TP PAIN / TEMP; Start 09/22/18 at 23:00 Divalproex Sodium (Depakote Sprinkles) 500 mg HS PO Last administered on 10/04/18at 19:28; Start 09/24/18 at 21:00; Stop 10/05/18 at 17:53; Status DC Risperidone (RisperDAL) 1.5 mg BID SL ; Start 09/27/18 at 09:00; Stop 09/27/18 at 09:00; Status DC Risperidone (RisperDAL CONSTA) 12.5 mg Q2WKS IM ; Start 09/30/18 at 09:00; Stop 09/30/18 at 09:00; Status DC Risperidone (RisperDAL CONSTA) 12.5 mg Q2WKS IM Last administered on 09/29/18at 12:51; Start 09/29/18 at 09:00 Risperidone (RisperDAL) 1.5 mg BID SL Last administered on 10/10/18at 19:37; Start 09/26/18 at 21:00; Stop 10/10/18 at 20:58; Status DC Lorazepam (Ativan) 1 mg 1X ONCE IV ; Start 09/28/18 at 10:00; Stop 09/28/18 at 10:02; Status DC Lorazepam (Ativan) 1 mg 1X ONCE IM Last administered on 09/28/18at 10:12; Start 09/28/18 at 10:30; Stop 09/28/18 at 10:31; Status DC Lorazepam (Ativan) 1 mg DAILY IM Last administered on 10/10/18at 18:11; Start 09/29/18 at 09:00 Divalproex Sodium (Depakote Sprinkles) 500 mg 1200 PO Last administered on 10/10/18at 12:27; Start 10/06/18 at 12:00 Quetiapine Fumarate (SEROquel) 25 mg 1800 PO Last administered on 10/09/18at 17:23; Start 10/08/18 at 18:00; Stop 10/10/18 at 09:00; Status DC Quetiapine Fumarate (SEROquel) 12.5 mg DAILY@1800 PO Last administered on 10/10/18at 17:17; Start 10/10/18 at 18:00; Stop 10/12/18 at 09:00 Docusate Sodium (Colace) 100 mg BID PO Last administered on 10/09/18at 19:49; S tart 10/09/18 at 21:00; Stop 10/10/18 at 00:05; Status DC Polyethylene Glycol (miraLAX) 17 gm DAILY PO Last administered on 10/10/18at 12:31; Start 10/10/18 at 09:00 Docusate Sodium (Colace Solution) 100 mg BID PO Last administered on 10/10/18at 19:28; Start 10/10/18 at 09:00 Risperidone (RisperDAL) 1 mg BID SL ; Start 10/11/18 at 09:00 Active Scripts Active Reported Namenda (Memantine Hcl) 10 Mg Tablet 10 Mg PO BID Trazodone Hcl 100 Mg Tablet 100 Mg PO HS Fluvoxamine Maleate 100 Mg Cap.er.24h 100 Mg PO HS Seroquel (Quetiapine Fumarate) 25 Mg Tablet 37.5 Mg PO 1800 Seroquel (Quetiapine Fumarate) 50 Mg Tablet 50 Mg PO 1500 Seroquel (Quetiapine Fumarate) 25 Mg Tablet 25 Mg PO DAILY Zyprexa Zydis (Olanzapine) 5 Mg Tab.rapdis 5 Mg PO PRN Q2HR PRN Mirtazapine 15 Mg Tablet 15 Mg PO HS Bengay (Menthol) 113 Gm Gel..gram. 1 Kita TP PRN QID PRN Milk Of Magnesia (Magnesium Hydroxide) 2,400 Mg/10 Ml Oral.susp 2,400 Mg PO PRN QHS PRN Maalox Maximum Strength Susp (Mag Hydrox/Al Hydrox/Simeth) 355 Ml Oral.susp 15 Ml PO PRN AFTMEALHC PRN Depakote Sprinkle (Divalproex Sodium) 125 Mg Cap.sprink 250 Mg PO HS Depakote Sprinkle (Divalproex Sodium) 125 Mg Cap.sprink 125 Mg PO 0900,1200 Bisacodyl 10 Mg/30 Ml Enema 10 Mg RC PRN DAILY PRN Tylenol (Acetaminophen) 325 Mg Tablet 650 Mg PO PRN Q6HRS PRN Tamsulosin Hcl 0.4 Mg Cap.er.24h 0.4 Mg PO DAILY Levothyroxine Sodium 88 Mcg Tablet 88 Mcg PO DAILYAC Rivastigmine (Rivastigmine Tartrate) 1.5 Mg Capsule 3 Mg PO BID I have reviewed the current psychotropics carefully including drug interactions. Risk benefit ratio favors no change other than as noted in my dictated progress note. Diagnosis: Problems: (1) Anxiety disorder (2) Dementia in Alzheimer's disease with delusions (3) Dementia in Alzheimer's disease with depression (4) Dementia, vascular, with delusions (5) Dementia, vascular, with depression (6) Impulse control disorder MILAN TAYLOR MD Oct 10, 2018 22:47
[2018-10-11] MEDS: LEVOTHYROXINE 88 MCG TABLET PO SCH (04:50)
[2018-10-11 05:50] VITALS: BP 162/79
[2018-10-11] MEDS: DOCUSATE 100 MG/10 ML SOLUTION. PO SCH ×2 (11:49→19:43)
[2018-10-11] MEDS: TAMSULOSIN 0.4 MG CAP.ER.24H. PO SCH (11:49)
[2018-10-11] MEDS: DIVALPROEX 125 MG CAP.SPRINK PO SCH (11:49)
[2018-10-11] MEDS: POLYETHYLENE GLYCOL 3350 17 GM PACKET. PO SCH (11:49)
[2018-10-11] MEDS: RIVASTIGMINE 3 MG CAPSULE. PO SCH ×2 (11:49→19:43)
[2018-10-11] MEDS: risperiDONE ORAL 1 MG/ML 30ml BOTTLE. SL SCH ×2 (11:50→19:46)
[2018-10-11 16:28] VITALS: BP 128/67
[2018-10-11] MEDS: QUEtiapine 25 MG TABLET. PO SCH (17:04)
[2018-10-11] MEDS: MIRTAZAPINE 15 MG TABLET PO SCH (19:43)
[2018-10-11] MEDS: traZODone 100 MG TABLET. PO SCH (19:43)
--- NOTE | 2018-10-11 23:07 | PDOC ---
Exam Note: Justin Note: Please also refer to the separate dictated note~for this date of service dictated separately.~Patient seen individually. Discussed the patient with Nursing staff reviewed the chart.~Reviewed interim history and current functioning. Reviewed vital signs,~Labs/ Radiology~and current medications noted below. Continue current treatment with the changes noted in the dictated addendum note Assessment: Vital Signs: Vital Signs Date Time Temp Pulse Resp B/P (MAP) Pulse Ox O2 Delivery O2 Flow Rate FiO2 10/11/18 16:28 98.0 76 16 128/67 (87) 95 10/10/18 15:54 Room Air I&O Intake and Output 10/11/18 06:59 Intake Total 920 ml Balance 920 ml Intake Oral 920 ml Current Medications: Meds: Current Medications Acetaminophen (Tylenol) 650 mg PRN Q6HRS PRN PO PAIN / TEMP; Start 09/22/18 at 21:30; Stop 09/22/18 at 22:50; Status DC Multi-Ingredient Ointment (Analgesic [place]) 1 kita PRN QID PRN TP MUSCLE PAIN; Start 09/22/18 at 21:30; Stop 09/22/18 at 22:50; Status DC Al Hydroxide/Mg Hydroxide (Mylanta Plus Xs) 15 ml PRN AFTMEALHC PRN PO DYSPE PSIA; Start 09/22/18 at 21:30; Stop 09/22/18 at 22:50; Status DC Magnesium Hydroxide (Milk Of Magnesia) 2,400 mg PRN QHS PRN PO CONSTIPATION; Start 09/22/18 at 21:30; Stop 09/22/18 at 22:50; Status DC Olanzapine (ZyPREXA ZYDIS) 5 mg PRN Q2HR PRN PO PSYCHOSIS Last administered on 10/11/18at 22:22; Start 09/22/18 at 22:00 Divalproex Sodium (Depakote Sprinkles) 125 mg 0900,1200 PO Last administered on 09/24/18at 10:34; Start 09/23/18 at 09:00; Stop 09/24/18 at 11:32; Status DC Divalproex Sodium (Depakote Sprinkles) 250 mg HS PO Last administered on 09/23/18at 19:44; Start 09/23/18 at 21:00; Stop 09/24/18 at 11:32; Status DC Fluvoxamine Maleate (Luvox) 100 mg HS PO Last administered on 10/11/18 19:43; Start 09/23/18 at 21:00 Memantine (Namenda) 10 mg BID PO Last administered on 10/10/18 19:28; Start 09/23/18 at 09:00; Stop 10/10/18 at 20:58; Status DC Mirtazapine (Remeron) 15 mg HS PO Last administered on 10/11/18 19:43; Start 09/23/18 at 21:00 Quetiapine Fumarate (SEROquel) 25 mg DAILY PO Last administered on 09/26/18 09:32; Start 09/23/18 at 09:00; Stop 09/26/18 at 15:31; Status DC Quetiapine Fumarate (SEROquel) 37.5 mg 1800 PO Last administered on 10/07/18 17:33; Start 09/23/18 at 18:00; Stop 10/08/18 at 11:09; Status DC Quetiapine Fumarate (SEROquel) 50 mg 1500 PO Last administered on 09/26/18 14:34; Start 09/23/18 at 15:00; Stop 09/26/18 at 15:31; Status DC Rivastigmine Tartrate (Exelon) 3 mg BID PO Last administered on 10/11/18 19:43; Start 09/23/18 at 09:00 Trazodone HCl (Desyrel) 100 mg HS PO Last administered on 10/11/18 19:43; Start 09/23/18 at 21:00 Acetaminophen (Tylenol) 650 mg PRN Q6HRS PRN PO PAIN / TEMP; Start 09/22/18 at 22:00; Status Cancel Bisacodyl (Fleet Bisacodyl) 10 mg PRN DAILY PRN RC CONSTIPATION; Start 09/22/18 at 22:00 Levothyroxine Sodium (Synthroid) 88 mcg DAILY06 PO Last administered on 10/11/18 04:50; Start 09/23/18 at 06:00 Al Hydroxide/Mg Hydroxide (Mylanta Plus Xs) 15 ml PRN AFTMEALHC PRN PO DYSPEPSIA; Start 09/22/18 at 22:00; Status Cancel Tamsulosin HCl (Flomax) 0.4 mg DAILY PO Last administered on 10/11/18at 11:49; Start 09/23/18 at 09:00 Magnesium Hydroxide (Milk Of Magnesia) 2,400 mg PRN QHS PRN PO CONSTIPATION; Start 09/22/18 at 22:00; Status Cancel Multi-Ingredient Ointment (Analgesic [place]) 1 kita PRN QID PRN TP PAIN / TEMP; Start 09/22/18 at 22:00; Status Cancel Acetaminophen (Tylenol) 650 mg PRN Q6HRS PRN PO PAIN / TEMP Last administered on 10/04/18at 19:32; Start 09/22/18 at 23:00 Al Hydroxide/Mg Hydroxide (Mylanta Plus Xs) 15 ml PRN AFTMEALHC PRN PO DYSPEPSIA; Start 09/22/18 at 23:00 Magnesium Hydroxide (Milk Of Magnesia) 2,400 mg PRN QHS PRN PO CONSTIPATION; Start 09/22/18 at 23:00 Multi-Ingredient Ointment (Analgesic [place]) 1 kita PRN QID PRN TP PAIN / TEMP; Start 09/22/18 at 23:00 Divalproex Sodium (Depakote Sprinkles) 500 mg HS PO Last administered on 10/04/18at 19:28; Start 09/24/18 at 21:00; Stop 10/05/18 at 17:53; Status DC Risperidone (RisperDAL) 1.5 mg BID SL ; Start 09/27/18 at 09:00; Stop 09/27/18 at 09:00; Status DC Risperidone (RisperDAL CONSTA) 12.5 mg Q2WKS IM ; Start 09/30/18 at 09:00; Stop 09/30/18 at 09:00; Status DC Risperidone (RisperDAL CONSTA) 12.5 mg Q2WKS IM Last administered on 09/29/18at 12:51; Start 09/29/18 at 09:00 Risperidone (RisperDAL) 1.5 mg BID SL Last administered on 10/10/18at 19:37; Start 09/26/18 at 21:00; Stop 10/10/18 at 20:58; Status DC Lorazepam (Ativan) 1 mg 1X ONCE IV ; Start 09/28/18 at 10:00; Stop 09/28/18 at 10:02; Status DC Lorazepam (Ativan) 1 mg 1X ONCE IM Last administered on 09/28/18at 10:12; Start 09/28/18 at 10:30; Stop 09/28/18 at 10:31; Status DC Lorazepam (Ativan) 1 mg DAILY IM Last administered on 10/10/18at 18:11; Start 09/29/18 at 09:00 Divalproex Sodium (Depakote Sprinkles) 500 mg 1200 PO Last administered on 10/11/18 11:49; Start 10/06/18 at 12:00 Quetiapine Fumarate (SEROquel) 25 mg 1800 PO Last administered on 10/09/18 17:23; Start 10/08/18 at 18:00; Stop 10/10/18 at 09:00; Status DC Quetiapine Fumarate (SEROquel) 12.5 mg DAILY@1800 PO Last administered on 10/11/18 17:04; Start 10/10/18 at 18:00; Stop 10/12/18 at 09:00 Docusate Sodium (Colace) 100 mg BID PO Last administered on 10/09/18 19:49; Start 10/09/18 at 21:00; Stop 10/10/18 at 00:05; Status DC Polyethylene Glycol (miraLAX) 17 gm DAILY PO Last administered on 10/11/18 11 :49; Start 10/10/18 at 09:00 Docusate Sodium (Colace Solution) 100 mg BID PO Last administered on 10/11/18 19:43; Start 10/10/18 at 09:00 Risperidone (RisperDAL) 1 mg BID SL Last administered on 10/11/18 19:46; Start 10/11/18 at 09:00 Active Scripts Active Reported Namenda (Memantine Hcl) 10 Mg Tablet 10 Mg PO BID Trazodone Hcl 100 Mg Tablet 100 Mg PO HS Fluvoxamine Maleate 100 Mg Cap.er.24h 100 Mg PO HS Seroquel (Quetiapine Fumarate) 25 Mg Tablet 37.5 Mg PO 1800 Seroquel (Quetiapine Fumarate) 50 Mg Tablet 50 Mg PO 1500 Seroquel (Quetiapine Fumarate) 25 Mg Tablet 25 Mg PO DAILY Zyprexa Zydis (Olanzapine) 5 Mg Tab.rapdis 5 Mg PO PRN Q2HR PRN Mirtazapine 15 Mg Tablet 15 Mg PO HS Bengay (Menthol) 113 Gm Gel..gram. 1 Kita TP PRN QID PRN Milk Of Magnesia (Magnesium Hydroxide) 2,400 Mg/10 Ml Oral.susp 2,400 Mg PO PRN QHS PRN Maalox Maximum Strength Susp (Mag Hydrox/Al Hydrox/Simeth) 355 Ml Oral.susp 15 Ml PO PRN AFTMEALHC PRN Depakote Sprinkle (Divalproex Sodium) 125 Mg Cap.sprink 250 Mg PO HS Depakote Sprinkle (Divalproex Sodium) 125 Mg Cap.sprink 125 Mg PO 0900,1200 Bisacodyl 10 Mg/30 Ml Enema 10 Mg RC PRN DAILY PRN Tylenol (Acetaminophen) 325 Mg Tablet 650 Mg PO PRN Q6HRS PRN Tamsulosin Hcl 0.4 Mg Cap.er.24h 0.4 Mg PO DAILY Levothyroxine Sodium 88 Mcg Tablet 88 Mcg PO DAILYAC Rivastigmine (Rivastigmine Tartrate) 1.5 Mg Capsule 3 Mg PO BID I have reviewed the current psychotropics carefully including drug interactions. Risk benefit ratio favors no change other than as noted in my dictated progress note. Diagnosis: Problems: (1) Anxiety disorder (2) Dementia in Alzheimer's disease with delusions (3) Dementia in Alzheimer's disease with depression (4) Dementia, vascular, with delusions (5) Dementia, vascular, with depression (6) Impulse control disorder MILAN TAYLOR MD Oct 11, 2018 23:07
[2018-10-12 05:41] VITALS: BP 138/68
[2018-10-12] MEDS: LEVOTHYROXINE 88 MCG TABLET PO SCH (05:56)
[2018-10-12] MEDS: DOCUSATE 100 MG/10 ML SOLUTION. PO SCH ×2 (07:51→19:23)
[2018-10-12] MEDS: RIVASTIGMINE 3 MG CAPSULE. PO SCH ×2 (07:52→19:23)
[2018-10-12] MEDS: TAMSULOSIN 0.4 MG CAP.ER.24H. PO SCH (07:52)
[2018-10-12] MEDS: POLYETHYLENE GLYCOL 3350 17 GM PACKET. PO SCH (07:52)
[2018-10-12] MEDS: risperiDONE ORAL 1 MG/ML 30ml BOTTLE. SL SCH ×2 (09:00→19:24)
[2018-10-12] MEDS: DIVALPROEX 125 MG CAP.SPRINK PO SCH (12:55)
[2018-10-12 13:18] LABS: BASO % 1 % (0-3); EOS # 0.2 x10^3/uL (0.0-0.7); EOS % 2 % (0-3); HEMATOCRIT 32.7 % (39.0-53.0); HEMOGLOBIN 11.2 g/dL (13.0-17.5); LYMPH # 0.9 x10^3/uL (1.0-4.8); LYMPH % 11 % (24-48); MEAN CORPUSCULAR HEMOGLOBIN 32 pg (25-35); MEAN CORPUSCULAR HGB CONC 34 g/dL (31-37); MEAN CORPUSCULAR VOLUME 93 fL (79-100); MONO # 0.6 x10^3/uL (0.0-1.1); MONO % 7 % (0-9); NEUT # 6.7 x10^3uL (1.8-7.7); NEUT % 79 % (31-73); PLATELET COUNT 204 x10^3/uL (140-400); RED CELL DISTRIBUTION WIDTH 14.4 % (11.5-14.5); WHITE BLOOD COUNT 8.4 x10^3/uL (4.0-11.0)
[2018-10-12 13:30] LABS: ALBUMIN 2.9 g/dL (3.4-5.0); ALBUMIN/GLOBULIN RATIO 0.6 (1.0-1.7); CREATININE 1.5 mg/dL (0.7-1.3); GFR 45.3; POTASSIUM 4.5 mmol/L (3.5-5.1); TOTAL BILIRUBIN 0.3 mg/dL (0.2-1.0)
[2018-10-12 13:55] LABS: CALCIUM 9.2 mg/dL (8.5-10.1)
[2018-10-12 16:49] VITALS: BP 131/71
[2018-10-12] MEDS: MIRTAZAPINE 15 MG TABLET PO SCH (19:24)
[2018-10-12] MEDS: traZODone 100 MG TABLET. PO SCH (19:30)
--- NOTE | 2018-10-12 21:43 | PN ---
DATE: 10/10/2018 PSYCHIATRIC PROGRESS NOTE This late entry 10/10/2018 covers elements not covered in my initial note. SUBJECTIVE: I met with the patient in the evening. The patient slept 5-3/4 hours previous night. Family has accepted him, starting on hospice care. In the evening, he was calm in the day room, compliant with medications, confused. REVIEW OF SYSTEMS: No CV, , pulmonary, eye, ENT system symptoms on review. Reliability poor. MENTAL STATUS EXAMINATION: Oriented to himself. Insight, judgment, recent and remote memory, attention, concentration, fund of knowledge poor, consistent with his diagnosis mentioned in my initial note. PLAN: Reduce Risperdal liquid from 1.5 mg b.i.d. down to 1 mg twice a day. Stop the Namenda as it has probably a little benefit at this stage of his dementia and may stop the Exelon as well. MILAN TAYLOR MD DR: NATAN/alfredo JOB#: [id number] / [id number]
--- NOTE | 2018-10-12 21:51 | PN ---
DATE: 10/09/2018 PSYCHIATRIC PROGRESS NOTE This late entry 10/09/2018 covers elements not covered in my initial note. SUBJECTIVE: I met with the patient in the evening. The patient slept 7 hours previous night, slept until 11:30 a.m., did not receive any IM Ativan and code status is being changed to DNR with hospice care per the patient's . He remains on Risperdal Consta. He had an episode earlier in the day, was agitated, did redirect. REVIEW OF SYSTEMS: No CV, , pulmonary, eye, ENT system symptoms on review. Reliability poor. MENTAL STATUS EXAMINATION: Oriented to himself. Insight, judgment, recent and remote memory, attention, concentration, fund of knowledge poor, consistent with his diagnosis mentioned in my initial note. PLAN: No change from initial note. MAN ValenciaMichael TAYLOR MD DR: NATAN/alfredo JOB#: [id number] / [id number]
--- NOTE | 2018-10-12 22:05 | PN ---
DATE: 10/11/2018 PSYCHIATRIC PROGRESS NOTE This late entry 10/11/2018 covers elements not covered in my initial note. SUBJECTIVE: I met with the patient in the evening. The patient slept 6 hours previous night. He remains confused, anxious at times, restless, but redirects. REVIEW OF SYSTEMS: No CV, , pulmonary, eye, ENT system symptoms on review. Reliability poor. MENTAL STATUS EXAM: Oriented to himself. Insight, judgment, recent and remote memory, attention, concentration, fund of knowledge poor, consistent with his diagnosis mentioned in my initial note. PLAN: No change from initial note and family has agreed for hospice care post discharge. MAN Connie TAYLOR MD DR: NATAN/alfredo JOB#: [id number] / [id number]
--- NOTE | 2018-10-12 22:37 | PDOC ---
Exam Note: Justin Note: Please also refer to the separate dictated note~for this date of service dictated separately.~Patient seen individually. Discussed the patient with Nursing staff reviewed the chart.~Reviewed interim history and current functioning. Reviewed vital signs,~Labs/ Radiology~and current medications noted below. Continue current treatment with the changes noted in the dictated addendum note Assessment: Vital Signs: Vital Signs Date Time Temp Pulse Resp B/P (MAP) Pulse Ox O2 Delivery O2 Flow Rate FiO2 10/12/18 16:49 97.4 82 20 131/71 (91) 93 10/10/18 15:54 Room Air I&O Intake and Output 10/12/18 07:00 Intake Total 720 ml Balance 720 ml Intake Oral 720 ml Labs: Laboratory Tests Test 10/12/18 13:08 White Blood Count 8.4 x10^3/uL (4.0-11.0) Red Blood Count 3.50 x10^6/uL (4.30-5.70) L Hemoglobin 11.2 g/dL (13.0-17.5) L Hematocrit 32.7 % (39.0-53.0) L Mean Corpuscular Volume 93 fL (79-100) Mean Corpuscular Hemoglobin 32 pg (25-35) Mean Corpuscular Hemoglobin Concent 34 g/dL (31-37) Red Cell Distribution Width 14.4 % (11.5-14.5) Platelet Count 204 x10^3/uL (140-400) Neutrophils (%) (Auto) 79 % (31-73) H Lymphocytes (%) (Auto) 11 % (24-48) L Monocytes (%) (Auto) 7 % (0-9) Eosinophils (%) (Auto) 2 % (0-3) Basophils (%) (Auto) 1 % (0-3) Neutrophils # (Auto) 6.7 x10^3uL (1.8-7.7) Lymphocytes # (Auto) 0.9 x10^3/uL (1.0-4.8) L Monocytes # (Auto) 0.6 x10^3/uL (0.0-1.1) Eosinophils # (Auto) 0.2 x10^3/uL (0.0-0.7) Basophils # (Auto) 0.0 x10^3/uL (0.0-0.2) Sodium Level 143 mmol/L (136-145) Potassium Level 4.5 mmol/L (3.5-5.1) Chloride Level 105 mmol/L (98-107) Carbon Dioxide Level 32 mmol/L (21-32) Anion Gap 6 (6-14) Blood Urea Nitrogen 53 mg/dL (8-26) H Creatinine 1.5 mg/dL (0.7-1.3) H Estimated GFR (Cockcroft-Gault) 45.3 BUN/Creatinine Ratio 35 (6-20) H Glucose Level 142 mg/dL (70-99) H Calcium Level 9.2 mg/dL (8.5-10.1) Total Bilirubin 0.3 mg/dL (0.2-1.0) Aspartate Amino Transferase (AST) 26 U/L (15-37) Alanine Aminotransferase (ALT) 43 U/L (16-63) Alkaline Phosphatase 105 U/L (46-116) Total Protein 8.0 g/dL (6.4-8.2) Albumin 2.9 g/dL (3.4-5.0) L Albumin/Globulin Ratio 0.6 (1.0-1.7) L Current Medications: Meds: Current Medications Acetaminophen (Tylenol) 650 mg PRN Q6HRS PRN PO PAIN / TEMP; Start 09/22/18 at 21:30; Stop 09/22/18 at 22:50; Status DC Multi-Ingredient Ointment (Analgesic [place]) 1 kita PRN QID PRN TP MUSCLE PAIN; Start 09/22/18 at 21:30; Stop 09/22/18 at 22:50; Status DC Al Hydroxide/Mg Hydroxide (Mylanta Plus Xs) 15 ml PRN AFTMEALHC PRN PO DYSPEPSIA; Start 09/22/18 at 21:30; Stop 09/22/18 at 22:50; Status DC Magnesium Hydroxide (Milk Of Magnesia) 2,400 mg PRN QHS PRN PO CONSTIPATION; Start 09/22/18 at 21:30; Stop 09/22/18 at 22:50; Status DC Olanzapine (ZyPREXA ZYDIS) 5 mg PRN Q2HR PRN PO PSYCHOSIS Last administered on 10/11/18at 22:22; Start 09/22/18 at 22:00 Divalproex Sodium (Depakote Sprinkles) 125 mg 0900,1200 PO Last administered on 09/24/18 10:34; Start 09/23/18 at 09:00; Stop 09/24/18 at 11:32; Status DC Divalproex Sodium (Depakote Sprinkles) 250 mg HS PO Last administered on 09/23/18 19:44; Start 09/23/18 at 21:00; Stop 09/24/18 at 11:32; Status DC Fluvoxamine Maleate (Luvox) 100 mg HS PO Last administered on 10/12/18 19:23; Start 09/23/18 at 21:00 Memantine (Namenda) 10 mg BID PO Last administered on 10/10/18 19:28; Start 09/23/18 at 09:00; Stop 10/10/18 at 20:58; Status DC Mirtazapine (Remeron) 15 mg HS PO Last administered on 10/12/18 19:24; Start 09/23/18 at 21:00 Quetiapine Fumarate (SEROquel) 25 mg DAILY PO Last administered on 09/26/18 09:32; Start 09/23/18 at 09:00; Stop 09/26/18 at 15:31; Status DC Quetiapine Fumarate (SEROquel) 37.5 mg 1800 PO Last administered on 10/07/18 17:33; Start 09/23/18 at 18:00; Stop 10/08/18 at 11:09; Status DC Quetiapine Fumarate (SEROquel) 50 mg 1500 PO Last administered on 09/26/18 14:34; Start 09/23/18 at 15:00; Stop 09/26/18 at 15:31; Status DC Rivastigmine Tartrate (Exelon) 3 mg BID PO Last administered on 10/12/18 19:23; Start 09/23/18 at 09:00 Trazodone HCl (Desyrel) 100 mg HS PO Last administered on 10/12/18 19:30; Start 09/23/18 at 21:00 Acetaminophen (Tylenol) 650 mg PRN Q6HRS PRN PO PAIN / TEMP; Start 09/22/18 at 22:00; Status Cancel Bisacodyl (Fleet Bisacodyl) 10 mg PRN DAILY PRN RC CONSTIPATION; Start 09/22/18 at 22:00 Levothyroxine Sodium (Synthroid) 88 mcg DAILY06 PO Last administered on 10/12/18at 05:56; Start 09/23/18 at 06:00 Al Hydroxide/Mg Hydroxide (Mylanta Plus Xs) 15 ml PRN AFTMEALHC PRN PO DYSPE PSIA; Start 09/22/18 at 22:00; Status Cancel Tamsulosin HCl (Flomax) 0.4 mg DAILY PO Last administered on 10/12/18at 07:52; Start 09/23/18 at 09:00 Magnesium Hydroxide (Milk Of Magnesia) 2,400 mg PRN QHS PRN PO CONSTIPATION; Start 09/22/18 at 22:00; Status Cancel Multi-Ingredient Ointment (Analgesic [place]) 1 kita PRN QID PRN TP PAIN / TEMP; Start 09/22/18 at 22:00; Status Cancel Acetaminophen (Tylenol) 650 mg PRN Q6HRS PRN PO PAIN / TEMP Last administered on 10/04/18at 19:32; Start 09/22/18 at 23:00 Al Hydroxide/Mg Hydroxide (Mylanta Plus Xs) 15 ml PRN AFTMEALHC PRN PO DYSPEPSIA; Start 09/22/18 at 23:00 Magnesium Hydroxide (Milk Of Magnesia) 2,400 mg PRN QHS PRN PO CONSTIPATION; Start 09/22/18 at 23:00 Multi-Ingredient Ointment (Analgesic [place]) 1 kita PRN QID PRN TP PAIN / TEMP; Start 09/22/18 at 23:00 Divalproex Sodium (Depakote Sprinkles) 500 mg HS PO Last administered on 10/04/18at 19:28; Start 09/24/18 at 21:00; Stop 10/05/18 at 17:53; Status DC Risperidone (RisperDAL) 1.5 mg BID SL ; Start 09/27/18 at 09:00; Stop 09/27/18 at 09:00; Status DC Risperidone (RisperDAL CONSTA) 12.5 mg Q2WKS IM ; Start 09/30/18 at 09:00; Stop 09/30/18 at 09:00; Status DC Risperidone (RisperDAL CONSTA) 12.5 mg Q2WKS IM Last administered on 09/29/18 12:51; Start 09/29/18 at 09:00 Risperidone (RisperDAL) 1.5 mg BID SL Last administered on 10/10/18 19:37; Start 09/26/18 at 21:00; Stop 10/10/18 at 20:58; Status DC Lorazepam (Ativan) 1 mg 1X ONCE IV ; Start 09/28/18 at 10:00; Stop 09/28/18 at 10:02; Status DC Lorazepam (Ativan) 1 mg 1X ONCE IM Last administered on 09/28/18 10:12; Start 09/28/18 at 10:30; Stop 09/28/18 at 10:31; Status DC Lorazepam (Ativan) 1 mg DAILY IM Last administered on 10/12/18 07:52; Start 09/29/18 at 09:00 Divalproex Sodium (Depakote Sprinkles) 500 mg 1200 PO Last administered on 10/12/18 12:55; Start 10/06/18 at 12:00 Quetiapine Fumarate (SEROquel) 25 mg 1800 PO Last administered on 10/09/18 17:23; Start 10/08/18 at 18:00; Stop 10/10/18 at 09:00; Status DC Quetiapine Fumarate (SEROquel) 12.5 mg DAILY@1800 PO Last administered on 10/11/18 17:04; Start 10/10/18 at 18:00; Stop 10/12/18 at 09:00; Status DC Docusate Sodium (Colace) 100 mg BID PO Last administered on 10/09/18 19:49; Start 10/09/18 at 21:00; Stop 10/10/18 at 00:05; Status DC Polyethylene Glycol (miraLAX) 17 gm DAILY PO Last administered on 10/12/18 07:52; Start 10/10/18 at 09:00 Docusate Sodium (Colace Solution) 100 mg BID PO Last administered on 10/12/18 19:23; Start 10/10/18 at 09:00 Risperidone (RisperDAL) 1 mg BID SL Last administered on 10/12/18 19:24; Start 10/11/18 at 09:00 Active Scripts Active Reported Namenda (Memantine Hcl) 10 Mg Tablet 10 Mg PO BID Trazodone Hcl 100 Mg Tablet 100 Mg PO HS Fluvoxamine Maleate 100 Mg Cap.er.24h 100 Mg PO HS Seroquel (Quetiapine Fumarate) 25 Mg Tablet 37.5 Mg PO 1800 Seroquel (Quetiapine Fumarate) 50 Mg Tablet 50 Mg PO 1500 Seroquel (Quetiapine Fumarate) 25 Mg Tablet 25 Mg PO DAILY Zyprexa Zydis (Olanzapine) 5 Mg Tab.rapdis 5 Mg PO PRN Q2HR PRN Mirtazapine 15 Mg Tablet 15 Mg PO HS Bengay (Menthol) 113 Gm Gel..gram. 1 Kita TP PRN QID PRN Milk Of Magnesia (Magnesium Hydroxide) 2,400 Mg/10 Ml Oral.susp 2,400 Mg PO PRN QHS PRN Maalox Maximum Strength Susp (Mag Hydrox/Al Hydrox/Simeth) 355 Ml Oral.susp 15 M l PO PRN AFTMEALHC PRN Depakote Sprinkle (Divalproex Sodium) 125 Mg Cap.sprink 250 Mg PO HS Depakote Sprinkle (Divalproex Sodium) 125 Mg Cap.sprink 125 Mg PO 0900,1200 Bisacodyl 10 Mg/30 Ml Enema 10 Mg RC PRN DAILY PRN Tylenol (Acetaminophen) 325 Mg Tablet 650 Mg PO PRN Q6HRS PRN Tamsulosin Hcl 0.4 Mg Cap.er.24h 0.4 Mg PO DAILY Levothyroxine Sodium 88 Mcg Tablet 88 Mcg PO DAILYAC Rivastigmine (Rivastigmine Tartrate) 1.5 Mg Capsule 3 Mg PO BID I have reviewed the current psychotropics carefully including drug interactions. Risk benefit ratio favors no change other than as noted in my dictated progress note. Diagnosis: Problems: (1) Anxiety disorder (2) Dementia in Alzheimer's disease with delusions (3) Dementia in Alzheimer's disease with depression (4) Dementia, vascular, with delusions (5) Dementia, vascular, with depression (6) Impulse control disorder MILAN TAYLOR MD Oct 12, 2018 22:37
[2018-10-13] MEDS: LEVOTHYROXINE 88 MCG TABLET PO SCH (05:36)
[2018-10-13 06:14] VITALS: BP 138/78
[2018-10-13] MEDS: DOCUSATE 100 MG/10 ML SOLUTION. PO SCH ×3 (15:18→20:50)
[2018-10-13] MEDS: RIVASTIGMINE 3 MG CAPSULE. PO SCH ×3 (15:19→20:50)
[2018-10-13] MEDS: POLYETHYLENE GLYCOL 3350 17 GM PACKET. PO SCH ×2 (15:19→16:02)
[2018-10-13] MEDS: TAMSULOSIN 0.4 MG CAP.ER.24H. PO SCH ×2 (15:19→16:02)
[2018-10-13] MEDS: risperiDONE ORAL 1 MG/ML 30ml BOTTLE. SL SCH ×2 (15:19→22:01)
[2018-10-13] MEDS: DIVALPROEX 125 MG CAP.SPRINK PO SCH ×2 (15:20→16:02)
[2018-10-13 15:57] VITALS: BP 92/52
[2018-10-13] MEDS: risperiDONE MICROSPHERES 12.5 MG/2 ML DISP.SYRIN. IM SCH ×2 (16:03→22:07)
--- NOTE | 2018-10-13 21:39 | PDOC ---
Exam Note: Justin Note: Please also refer to the separate dictated note~for this date of service dictated separately.~Patient seen individually. Discussed the patient with Nursing staff reviewed the chart.~Reviewed interim history and current functioning. Reviewed vital signs,~Labs/ Radiology~and current medications noted below. Continue current treatment with the changes noted in the dictated addendum note Assessment: Vital Signs: Vital Signs Date Time Temp Pulse Resp B/P (MAP) Pulse Ox O2 Delivery O2 Flow Rate FiO2 10/13/18 15:57 96.8 87 16 92/52 (65) 95 Room Air I&O Intake and Output 10/13/18 07:00 Intake Total 720 ml Balance 720 ml Intake Oral 720 ml Current Medications: Meds: Current Medications Acetaminophen (Tylenol) 650 mg PRN Q6HRS PRN PO PAIN / TEMP; Start 09/22/18 at 21:30; Stop 09/22/18 at 22:50; Status DC Multi-Ingredient Ointment (Analgesic [place]) 1 kita PRN QID PRN TP MUSCLE PAIN; Start 09/22/18 at 21:30; Stop 09/22/18 at 22:50; Status DC Al Hydroxide/Mg Hydroxide (Mylanta Plus Xs) 15 ml PRN AFTMEALHC PRN PO DYSPEPSIA; Start 09/22/18 at 21:30; Stop 09/22/18 at 22:50; Status DC Magnesium Hydroxide (Milk Of Magnesia) 2,400 mg PRN QHS PRN PO CONSTIPATION; Start 09/22/18 at 21:30; Stop 09/22/18 at 22:50; Status DC Olanzapine (ZyPREXA ZYDIS) 5 mg PRN Q2HR PRN PO PSYCHOSIS Last administered on 10/13/18at 17:57; Start 09/22/18 at 22:00 Divalproex Sodium (Depakote Sprinkles) 125 mg 0900,1200 PO Last administered on 09/24/18at 10:34; Start 09/23/18 at 09:00; Stop 09/24/18 at 11:32; Status DC Divalproex Sodium (Depakote Sprinkles) 250 mg HS PO Last administered on 09/23/18at 19:44; Start 09/23/18 at 21:00; Stop 09/24/18 at 11:32; Status DC Fluvoxamine Maleate (Luvox) 100 mg HS PO Last administered on 10/12/18 19:23; Start 09/23/18 at 21:00 Memantine (Namenda) 10 mg BID PO Last administered on 10/10/18 19:28; Start 09/23/18 at 09:00; Stop 10/10/18 at 20:58; Status DC Mirtazapine (Remeron) 15 mg HS PO Last administered on 10/12/18 19:24; Start 09/23/18 at 21:00 Quetiapine Fumarate (SEROquel) 25 mg DAILY PO Last administered on 09/26/18 09:32; Start 09/23/18 at 09:00; Stop 09/26/18 at 15:31; Status DC Quetiapine Fumarate (SEROquel) 37.5 mg 1800 PO Last administered on 10/07/18 17:33; Start 09/23/18 at 18:00; Stop 10/08/18 at 11:09; Status DC Quetiapine Fumarate (SEROquel) 50 mg 1500 PO Last administered on 09/26/18at 14:34; Start 09/23/18 at 15:00; Stop 09/26/18 at 15:31; Status DC Rivastigmine Tartrate (Exelon) 3 mg BID PO Last administered on 10/12/18 19:23; Start 09/23/18 at 09:00 Trazodone HCl (Desyrel) 100 mg HS PO Last administered on 10/12/18at 19:30; Start 09/23/18 at 21:00 Acetaminophen (Tylenol) 650 mg PRN Q6HRS PRN PO PAIN / TEMP; Start 09/22/18 at 22:00; Status Cancel Bisacodyl (Fleet Bisacodyl) 10 mg PRN DAILY PRN RC CONSTIPATION; Start 09/22/18 at 22:00 Levothyroxine Sodium (Synthroid) 88 mcg DAILY06 PO Last administered on 10/13/18at 05:36; Start 09/23/18 at 06:00 Al Hydroxide/Mg Hydroxide (Mylanta Plus Xs) 15 ml PRN AFTMEALHC PRN PO DYSPEPSIA; Start 09/22/18 at 22:00; Status Cancel Tamsulosin HCl (Flomax) 0.4 mg DAILY PO Last administered on 10/12/18at 07:52; Start 09/23/18 at 09:00 Magnesium Hydroxide (Milk Of Magnesia) 2,400 mg PRN QHS PRN PO CONSTIPATION; Start 09/22/18 at 22:00; Status Cancel Multi-Ingredient Ointment (Analgesic [place]) 1 kita PRN QID PRN TP PAIN / TEMP; S tart 09/22/18 at 22:00; Status Cancel Acetaminophen (Tylenol) 650 mg PRN Q6HRS PRN PO PAIN / TEMP Last administered on 10/04/18at 19:32; Start 09/22/18 at 23:00 Al Hydroxide/Mg Hydroxide (Mylanta Plus Xs) 15 ml PRN AFTMEALHC PRN PO DYSPEPSIA; Start 09/22/18 at 23:00 Magnesium Hydroxide (Milk Of Magnesia) 2,400 mg PRN QHS PRN PO CONSTIPATION; Start 09/22/18 at 23:00 Multi-Ingredient Ointment (Analgesic [place]) 1 kita PRN QID PRN TP PAIN / TEMP; Start 09/22/18 at 23:00 Divalproex Sodium (Depakote Sprinkles) 500 mg HS PO Last administered on 10/04/18at 19:28; Start 09/24/18 at 21:00; Stop 10/05/18 at 17:53; Status DC Risperidone (RisperDAL) 1.5 mg BID SL ; Start 09/27/18 at 09:00; Stop 09/27/18 at 09:00; Status DC Risperidone (RisperDAL CONSTA) 12.5 mg Q2WKS IM ; Start 09/30/18 at 09:00; Stop 09/30/18 at 09:00; Status DC Risperidone (RisperDAL CONSTA) 12.5 mg Q2WKS IM Last administered on 09/29/18at 12:51; Start 09/29/18 at 09:00 Risperidone (RisperDAL) 1.5 mg BID SL Last administered on 10/10/18at 19:37; Start 09/26/18 at 21:00; Stop 10/10/18 at 20:58; Status DC Lorazepam (Ativan) 1 mg 1X ONCE IV ; Start 09/28/18 at 10:00; Stop 09/28/18 at 10:02; Status DC Lorazepam (Ativan) 1 mg 1X ONCE IM Last administered on 09/28/18at 10:12; Start 09/28/18 at 10:30; Stop 09/28/18 at 10:31; Status DC Lorazepam (Ativan) 1 mg DAILY IM Last administered on 10/13/18at 15:51; Start 09/29/18 at 09:00 Divalproex Sodium (Depakote Sprinkles) 500 mg 1200 PO Last administered on 10/12/18at 12:55; Start 10/06/18 at 12:00 Quetiapine Fumarate (SEROquel) 25 mg 1800 PO Last administered on 10/09/18 17:23; Start 10/08/18 at 18:00; Stop 10/10/18 at 09:00; Status DC Quetiapine Fumarate (SEROquel) 12.5 mg DAILY@1800 PO Last administered on 10/11/18at 17:04; Start 10/10/18 at 18:00; Stop 10/12/18 at 09:00; Status DC Docusate Sodium (Colace) 100 mg BID PO Last administered on 10/09/18at 19:49; Start 10/09/18 at 21:00; Stop 10/10/18 at 00:05; Status DC Polyethylene Glycol (miraLAX) 17 gm DAILY PO Last administered on 10/12/18at 07:52; Start 10/10/18 at 09:00 Docusate Sodium (Colace Solution) 100 mg BID PO Last administered on 10/12/18 19:23; Start 10/10/18 at 09:00 Risperidone (RisperDAL) 1 mg BID SL Last administered on 10/13/18 15:19; Start 10/11/18 at 09:00 Active Scripts Active Reported Namenda (Memantine Hcl) 10 Mg Tablet 10 Mg PO BID Trazodone Hcl 100 Mg Tablet 100 Mg PO HS Fluvoxamine Maleate 100 Mg Cap.er.24h 100 Mg PO HS Seroquel (Quetiapine Fumarate) 25 Mg Tablet 37.5 Mg PO 1800 Seroquel (Quetiapine Fumarate) 50 Mg Tablet 50 Mg PO 1500 Seroquel (Quetiapine Fumarate) 25 Mg Tablet 25 Mg PO DAILY Zyprexa Zydis (Olanzapine) 5 Mg Tab.rapdis 5 Mg PO PRN Q2HR PRN Mirtazapine 15 Mg Tablet 15 Mg PO HS [place] (Menthol) 113 Gm Gel..gram. 1 Kita TP PRN QID PRN Milk Of Magnesia (Magnesium Hydroxide) 2,400 Mg/10 Ml Oral.susp 2,400 Mg PO PRN QHS PRN Maalox Maximum Strength Susp (Mag Hydrox/Al Hydrox/Simeth) 355 Ml Oral.susp 15 Ml PO PRN AFTMEALHC PRN Depakote Sprinkle (Divalproex Sodium) 125 Mg Cap.sprink 250 Mg PO HS Depakote Sprinkle (Divalproex Sodium) 125 Mg Cap.sprink 125 Mg PO 0900,1200 Bisacodyl 10 Mg/30 Ml Enema 10 Mg RC PRN DAILY PRN Tylenol (Acetaminophen) 325 Mg Tablet 650 Mg PO PRN Q6HRS PRN Tamsulosin Hcl 0.4 Mg Cap.er.24h 0.4 Mg PO DAILY Levothyroxine Sodium 88 Mcg Tablet 88 Mcg PO DAILYAC Rivastigmine (Rivastigmine Tartrate) 1.5 Mg Capsule 3 Mg PO BID I have reviewed the current psychotropics carefully including drug interactions. Risk benefit ratio favors no change other than as noted in my dictated progress note. Diagnosis: Problems: (1) Anxiety disorder (2) Dementia in Alzheimer's disease with delusions (3) Dementia in Alzheimer's disease with depression (4) Dementia, vascular, with delusions (5) Dementia, vascular, with depression (6) Impulse control disorder MILAN TAYLOR MD Oct 13, 2018 21:39
[2018-10-13] MEDS: MIRTAZAPINE 15 MG TABLET PO SCH (21:59)
[2018-10-13] MEDS: traZODone 100 MG TABLET. PO SCH (21:59)
[2018-10-13] MEDS ORDERED: BISACODYL 10 MG SUPP.RECT PR ONE (22:30)
[2018-10-13] MEDS ORDERED: SODIUM PHOSPHATES 19/7GM 133 ML ENEMA. PR ONE (22:30)
--- NOTE | 2018-10-14 00:03 | PN ---
DATE: 10/12/2018 PSYCHIATRIC PROGRESS NOTE This late entry 10/12/2018 covers elements not covered in my initial note. SUBJECTIVE: I met with the patient in the evening. The patient slept 5-3/4 hours previous night. He got up early, was somewhat restless, agitated around lunchtime, received scheduled IM Ativan, then did better. REVIEW OF SYSTEMS: No CV, , pulmonary, eye, ENT system symptoms on review. Reliability poor. MENTAL STATUS EXAM: Oriented to himself. Insight, judgment, recent and remote memory, attention, concentration, fund of knowledge poor, consistent with his diagnosis mentioned in my initial note. PLAN: No change from initial note. MAN Connie TAYLOR MD DR: NATAN/alfredo JOB#: [id number] / [id number]
[2018-10-14] MEDS ORDERED: DOCU50LI PO (01:15)
[2018-10-14] MEDS ORDERED: POLY255P11 PO (01:17)
[2018-10-14] MEDS ORDERED: RISP37.5 IM (01:17)
[2018-10-14] MEDS ORDERED: RISP1SOL PO (01:19)
[2018-10-14] MEDS: LEVOTHYROXINE 88 MCG TABLET PO SCH (06:09)
[2018-10-14 06:26] VITALS: BP 111/66
[2018-10-14] MEDS: RIVASTIGMINE 3 MG CAPSULE. PO SCH (09:28)
[2018-10-14] MEDS: POLYETHYLENE GLYCOL 3350 17 GM PACKET. PO SCH ×2 (09:28→09:33)
[2018-10-14] MEDS: TAMSULOSIN 0.4 MG CAP.ER.24H. PO SCH (09:28)
[2018-10-14] MEDS: DOCUSATE 100 MG/10 ML SOLUTION. PO SCH (09:28)
[2018-10-14] MEDS: risperiDONE ORAL 1 MG/ML 30ml BOTTLE. SL SCH (09:32)
[2018-10-14] MEDS: DIVALPROEX 125 MG CAP.SPRINK PO SCH (12:06)
--- NOTE | 2018-10-14 18:31 | PDOC ---
Exam Note: Justin Note: Please also refer to the separate dictated note~for this date of service dictated separately.~Patient seen individually. Discussed the patient with Nursing staff reviewed the chart.~Reviewed interim history and current functioning. Reviewed vital signs,~Labs/ Radiology~and current medications noted below. Continue current treatment with the changes noted in the dictated addendum note Assessment: Vital Signs: Vital Signs Date Time Temp Pulse Resp B/P (MAP) Pulse Ox O2 Delivery O2 Flow Rate FiO2 10/14/18 06:26 97.9 101 16 111/66 (81) 95 10/13/18 15:57 Room Air I&O Intake and Output 10/14/18 06:59 Intake Total 240 ml Balance 240 ml Intake Oral 240 ml # Bowel Movements 1 Current Medications: Meds: Current Medications Acetaminophen (Tylenol) 650 mg PRN Q6HRS PRN PO PAIN / TEMP; Start 09/22/18 at 21:30; Stop 09/22/18 at 22:50; Status DC Multi-Ingredient Ointment (Analgesic [place]) 1 kita PRN QID PRN TP MUSCLE PAIN; Start 09/22/18 at 21:30; Stop 09/22/18 at 22:50; Status DC Al Hydroxide/Mg Hydroxide (Mylanta Plus Xs) 15 ml PRN AFTMEALHC PRN PO DYSPEPSIA; Start 09/22/18 at 21:30; Stop 09/22/18 at 22:50; Status DC Magnesium Hydroxide (Milk Of Magnesia) 2,400 mg PRN QHS PRN PO CONSTIPATION; Start 09/22/18 at 21:30; Stop 09/22/18 at 22:50; Status DC Olanzapine (ZyPREXA ZYDIS) 5 mg PRN Q2HR PRN PO PSYCHOSIS Last administered on 10/13/18at 22:02; Start 09/22/18 at 22:00; Stop 10/14/18 at 16:17; Status DC Divalproex Sodium (Depakote Sprinkles) 125 mg 0900,1200 PO Last administered on 09/24/18at 10:34; Start 09/23/18 at 09:00; Stop 09/24/18 at 11:32; Status DC Divalproex Sodium (Depakote Sprinkles) 250 mg HS PO Last administered on 09/23/18at 19:44; Start 09/23/18 at 21:00; Stop 09/24/18 at 11:32; Status DC Fluvoxamine Maleate (Luvox) 100 mg HS PO Last administered on 10/12/18at 19:23; Start 09/23/18 at 21:00; Stop 10/14/18 at 16:17; Status DC Memantine (Namenda) 10 mg BID PO Last administered on 10/10/18at 19:28; Start 09/23/18 at 09:00; Stop 10/10/18 at 20:58; Status DC Mirtazapine (Remeron) 15 mg HS PO Last administered on 10/13/18at 21:59; Start 09/23/18 at 21:00; Stop 10/14/18 at 16:17; Status DC Quetiapine Fumarate (SEROquel) 25 mg DAILY PO Last administered on 09/26/18 09:32; Start 09/23/18 at 09:00; Stop 09/26/18 at 15:31; Status DC Quetiapine Fumarate (SEROquel) 37.5 mg 1800 PO Last administered on 10/07/18at 17:33; Start 09/23/18 at 18:00; Stop 10/08/18 at 11:09; Status DC Quetiapine Fumarate (SEROquel) 50 mg 1500 PO Last administered on 09/26/18at 14:34; Start 09/23/18 at 15:00; Stop 09/26/18 at 15:31; Status DC Rivastigmine Tartrate (Exelon) 3 mg BID PO Last administered on 10/14/18 09:28; Start 09/23/18 at 09:00; Stop 10/14/18 at 16:17; Status DC Trazodone HCl (Desyrel) 100 mg HS PO Last administered on 10/13/18at 21:59; Start 09/23/18 at 21:00; Stop 10/14/18 at 16:17; Status DC Acetaminophen (Tylenol) 650 mg PRN Q6HRS PRN PO PAIN / TEMP; Start 09/22/18 at 22:00; Status Cancel Bisacodyl (Fleet Bisacodyl) 10 mg PRN DAILY PRN RC CONSTIPATION; Start 09/22/18 at 22:00; Stop 10/14/18 at 16:17; Status DC Levothyroxine Sodium (Synthroid) 88 mcg DAILY06 PO Last administered on 10/14/18at 06:09; Start 09/23/18 at 06:00; Stop 10/14/18 at 16:17; Status DC Al Hydroxide/Mg Hydroxide (Mylanta Plus Xs) 15 ml PRN AFTMEALHC PRN PO DYSPEPSIA; Start 09/22/18 at 22:00; Status Cancel Tamsulosin HCl (Flomax) 0.4 mg DAILY PO Last administered on 10/14/18at 09:28; Start 09/23/18 at 09:00; Stop 10/14/18 at 16:17; Status DC Magnesium Hydroxide (Milk Of Magnesia) 2,400 mg PRN QHS PRN PO CONSTIPATION; Start 09/22/18 at 22:00; Status Cancel Multi-Ingredient Ointment (Analgesic [place]) 1 kita PRN QID PRN TP PAIN / TEMP; Start 09/22/18 at 22:00; Status Cancel Acetaminophen (Tylenol) 650 mg PRN Q6HRS PRN PO PAIN / TEMP Last administered on 10/04/18at 19:32; Start 09/22/18 at 23:00; Stop 10/14/18 at 16:17; Status DC Al Hydroxide/Mg Hydroxide (Mylanta Plus Xs) 15 ml PRN AFTMEALHC PRN PO DYSPEPSIA; Start 09/22/18 at 23:00; Stop 10/14/18 at 16:17; Status DC Magnesium Hydroxide (Milk Of Magnesia) 2,400 mg PRN QHS PRN PO CONSTIPATION; Start 09/22/18 at 23:00; Stop 10/14/18 at 16:17; Status DC Multi-Ingredient Ointment (Analgesic [place]) 1 kita PRN QID PRN TP PAIN / TEMP; Start 09/22/18 at 23:00; Stop 10/14/18 at 16:17; Status DC Divalproex Sodium (Depakote Sprinkles) 500 mg HS PO Last administered on 10/04/18at 19:28; Start 09/24/18 at 21:00; Stop 10/05/18 at 17:53; Status DC Risperidone (RisperDAL) 1.5 mg BID SL ; Start 09/27/18 at 09:00; Stop 09/27/18 at 09:00; Status DC Risperidone (RisperDAL CONSTA) 12.5 mg Q2WKS IM ; Start 09/30/18 at 09:00; Stop 09/30/18 at 09:00; Status DC Risperidone (RisperDAL CONSTA) 12.5 mg Q2WKS IM Last administered on 10/13/18at 22:07; Start 09/29/18 at 09:00; Stop 10/14/18 at 16:17; Status DC Risperidone (RisperDAL) 1.5 mg BID SL Last administered on 10/10/18at 19:37; Start 09/26/18 at 21:00; Stop 10/10/18 at 20:58; Status DC Lorazepam (Ativan) 1 mg 1X ONCE IV ; Start 09/28/18 at 10:00; Stop 09/28/18 at 10:02; Status DC Lorazepam (Ativan) 1 mg 1X ONCE IM Last administered on 09/28/18at 10:12; Start 09/28/18 at 10:30; Stop 09/28/18 at 10:31; Status DC Lorazepam (Ativan) 1 mg DAILY IM Last administered on 10/14/18at 09:33; Start 09/29/18 at 09:00; Stop 10/14/18 at 16:17; Status DC Divalproex Sodium (Depakote Sprinkles) 500 mg 1200 PO Last administered on 10/14/18at 12:06; Start 10/06/18 at 12:00; Stop 10/14/18 at 16:17; Status DC Quetiapine Fumarate (SEROquel) 25 mg 1800 PO Last administered on 10/09/18at 17:23; Start 10/08/18 at 18:00; Stop 10/10/18 at 09:00; Status DC Quetiapine Fumarate (SEROquel) 12.5 mg DAILY@1800 PO Last administered on 10/11/18at 17:04; Start 10/10/18 at 18:00; Stop 10/12/18 at 09:00; Status DC Docusate Sodium (Colace) 100 mg BID PO Last administered on 10/09/18at 19:49; Start 10/09/18 at 21:00; Stop 10/10/18 at 00:05; Status DC Polyethylene Glycol (miraLAX) 17 gm DAILY PO Last administered on 10/14/18at 09:33; Start 10/10/18 at 09:00; Stop 10/14/18 at 16:17; Status DC Docusate Sodium (Colace Solution) 100 mg BID PO Last administered on 10/14/18at 09:28; Start 10/10/18 at 09:00; Stop 10/14/18 at 16:17; Status DC Risperidone (RisperDAL) 1 mg BID SL Last administered on 10/14/18at 09:32; Start 10/11/18 at 09:00; Stop 10/14/18 at 16:17; Status DC Sodium Biphosphate/ Sodium Phosphate (Fleet Adult) 133 ml 1X ONCE RI Last administered on 10/13/18at 22:30; Start 10/13/18 at 22:30; Stop 10/13/18 at 22:31; Status DC Bisacodyl (Dulcolax Supp) 10 mg 1X ONCE RI ; Start 10/13/18 at 22:30; Stop 10/13/18 at 22:31; Status DC Active Scripts Active Reported Risperidone 1 Mg/1 Ml Solution 1 Mg PO BID Risperdal Consta (Risperidone Microspheres) 37.5 Mg/2 Ml Disp.syrin 12.5 Mg IM Q2WKS Polyethylene Glycol 3350 255 Gm Powder 17 Gm PO DAILY Docusate Sodium 50 Mg/5 Ml Liquid 100 Mg PO BID Trazodone Hcl 100 Mg Tablet 100 Mg PO HS Fluvoxamine Maleate 100 Mg Cap.er.24h 100 Mg PO HS Zyprexa Zydis (Olanzapine) 5 Mg Tab.rapdis 5 Mg PO PRN Q2HR PRN Mirtazapine 15 Mg Tablet 15 Mg PO HS [place] (Menthol) 113 Gm Gel..gram. 1 Kita TP PRN QID PRN Milk Of Magnesia (Magnesium Hydroxide) 2,400 Mg/10 Ml Oral.susp 2,400 Mg PO PRN QHS PRN Maalox Maximum Strength Susp (Mag Hydrox/Al Hydrox/Simeth) 355 Ml Oral.susp 15 Ml PO PRN AFTMEALHC PRN Depakote Sprinkle (Divalproex Sodium) 125 Mg Cap.sprink 500 Mg PO 1200 Bisacodyl 10 Mg/30 Ml Enema 10 Mg RC PRN DAILY PRN Tylenol (Acetaminophen) 325 Mg Tablet 650 Mg PO PRN Q6HRS PRN Tamsulosin Hcl 0.4 Mg Cap.er.24h 0.4 Mg PO DAILY Levothyroxine Sodium 88 Mcg Tablet 88 Mcg PO DAILYAC Rivastigmine (Rivastigmine Tartrate) 1.5 Mg Capsule 3 Mg PO BID I have reviewed the current psychotropics carefully including drug interactions. Risk benefit ratio favors no change other than as noted in my dictated progress note. Diagnosis: Problems: (1) Impulse control disorder (2) Dementia, vascular, with depression (3) Dementia, vascular, with delusions (4) Dementia in Alzheimer's disease with depression (5) Dementia in Alzheimer's disease with delusions (6) Anxiety disorder MILAN TAYLOR MD October 14, 2018 18:31
--- NOTE | 2018-10-14 20:38 | DS ---
DATE OF DISCHARGE: 10/14/2018 DISCHARGE SUMMARY/PSYCHIATRIC PROGRESS NOTE REASON FOR ADMISSION: Please refer to the admission history for details. Briefly, the patient is a 78-year-old male referred back to us from the [facility] by his primary care physician on account of groping and grabbing at the residence on the memory care unit having marked insomnia, wandering the hallways, refusing medications, refusing to eat. Behaviors were deemed unmanageable, dangerous at the facility resulting in this referral. SIGNIFICANT FINDINGS AND CLINICAL COURSE: Following admission, the patient was seen daily individually by myself from a psychiatric standpoint, medical followup with Dr. Fournier. The patient was extremely disorganized, intermittently agitated, paranoid. Adjustments were made in his psychotropics and he seemed to do a little better on a combination of Depakote Sprinkles 500 mg at 1200, Luvox 100 mg at bedtime, Remeron 15 mg at bedtime, Exelon capsules 3 mg b.i.d., Seroquel was tapered and stopped, trazodone 100 mg at bedtime, Zyprexa p.r.n., Ativan 1 mg IM daily, Risperdal Consta 12.5 mg IM q. 2 weeks, which was initiated by Dr. Matute during my vacation. Family also opted for hospice care and coordination with Dr. Fournier. REVIEW OF SYSTEMS: Prior to discharge on 10/14/2018, no CV, , pulmonary, eye, ENT system symptoms on review. Reliability poor. MENTAL STATUS EXAM: Oriented to himself. Insight, judgment, recent and remote memory, attention, concentration, fund of knowledge poor, consistent with his diagnosis. FINAL DIAGNOSES: Major neurocognitive disorder, Alzheimer, vascular with delusion, depression, behavioral disturbance; anxiety disorder, unspecified; impulse control disorder, unspecified. Rest unchanged from admission. DISCHARGE MEDICATIONS: Please refer to the MRAD. DISCHARGE INSTRUCTIONS: [facility] at the [facility]. The patient was on hospice care at discharge. MAN Connie TAYLOR MD DR: NTAAN/alfredo JOB#: [id number] / [id number]
--- NOTE | 2018-10-14 21:37 | PN ---
DATE: 10/13/2018 PSYCHIATRIC PROGRESS NOTE This late entry 10/13/2018 covers elements not covered in my initial note. SUBJECTIVE: I met with the patient in the evening. The patient has been approved for hospice care per Dr. Fournier. Slept all day during the day. visited from 12-1 p.m., able to understand his condition little bit better. He woke up in the evening, received IM Ativan due to his agitation, spit out his Depakote. REVIEW OF SYSTEMS: He is quite confused, oblivious of his circumstances. He had not had much to eat for supper, I tried to give him a piece of chocolate, he was oblivious of what to do with it. No CV, , pulmonary, eye, ENT system symptoms on review. Reliability poor. MENTAL STATUS EXAM: Oriented to himself. Insight, judgment, recent and remote memory, attention, concentration, fund of knowledge poor, consistent with his diagnosis mentioned in my initial note. PLAN: No change from initial note. MAN Connie TAYLOR MD DR: NATAN/alfredo JOB#: [id number] / [id number]
== END 2018-10-14 15:15 | DRG 57 ==
LOC: ER 17:54 → GEROPSY 20:42
PROVIDERS: ADMIT Psychiatry & Neurology Psychiatry; ATTEND Psychiatry & Neurology Psychiatry
DX: G30.9 Alzheimer's disease, unspecified (principal); E03.9 Hypothyroidism, unspecified; F01.50 Vascular dementia, unspecified severity, without behavioral disturbance, psychotic disturbance, mood disturbance, and anxiety; F32.9 Major depressive disorder, single episode, unspecified; F41.9 Anxiety disorder, unspecified; G47.00 Insomnia, unspecified; F63.9 Impulse disorder, unspecified; H54.7 Unspecified visual loss; H90.5 Unspecified sensorineural hearing loss; I10 Essential (primary) hypertension; I25.10 Atherosclerotic heart disease of native coronary artery without angina pectoris; N40.0 Benign prostatic hyperplasia without lower urinary tract symptoms; Z51.5 Encounter for palliative care; Z79.899 Other long term (current) drug therapy; Z87.440 Personal history of urinary (tract) infections; Z95.1 Presence of aortocoronary bypass graft; N18.9 Chronic kidney disease, unspecified
CPT/HCPCS: 36415; 80048; 80053; 80061; 80164; 81001; 82306; 82550; 83036; 83540; 83550; 83605; 83735; 84436; 84443; 84480; 85025; 86592; 87086; 93005; J2060; J2794; 99285-25